=== PATIENT | female | born 1990 | race Caucasian/White ===

== ENCOUNTER 2020-08-06 16:20 | Emergency (ER) | payer BC, SELFPAY ==
[2020-08-06] VITALS (26 sets, daily range): BP systolic 108–155; BP diastolic 39–86; PULSE 103–125; RESP 16–22; TEMP 36.4; O2SAT 94–97; BMI 22.5
--- NOTE | 2020-08-06 16:42 | CT_ITS ---
EXAMINATION: CT HEAD WITHOUT CONTRAST CLINICAL INFORMATION: Altered mental status COMPARISON: None TECHNIQUE: Contiguous axial imaging was performed from the skull base to vertex without intravenous administration of contrast. This CT examination was performed using dose optimization techniques as appropriate, variously including the following: *Automated exposure control *Adjustment of mA and/or kV according to patient size (this includes techniques or standardized protocols for targeted exams where dose is matched to indication/reason for exam; i.e. extremities or head) *Use of iterative reconstruction technique DLP: 617 mGy-cm FINDINGS: There is no evidence of acute intracranial hemorrhage or territorial infarction. No abnormal mass effect or midline shift is seen. Obrien to white matter differentiation is well preserved. No extra-axial fluid collections are identified. The ventricles are normal in size. There is no abnormal attenuation within the brain parenchyma. The osseous structures and soft tissues are normal. Near-complete opacification of the left frontal sinus with several opacified ethmoidal air cells. There is minimal sinus disease of the sphenoid sinus. The mastoid air cells are well aerated. CT/CT head/brain wo con IMPRESSION: 1. No acute intracranial pathology. 2. Moderate sinus disease.
--- NOTE | 2020-08-06 16:43 | ED_ITS ---
HPI - Psych General Chief Complaint: Psychiatric Symptoms <Santy Abdul NP - Last Filed: 08/06/20 21:01> Stated Complaint: crisis <Santy Abdul NP - Last Filed: 08/06/20 21:01> Time Seen by Provider: 08/06/20 16:39 <Santy Abdul NP - Last Filed: 08/06/20 21:01> Source: EMS <Santy Abdul NP - Last Filed: 08/06/20 21:01> Mode of arrival: EMS <Santy Abdul NP - Last Filed: 08/06/20 21:01> Limitations: altered mental status <Santy Abdul NP - Last Filed: 08/06/20 21:01> History of Present Illness HPI Narrative: 29-year-old female according to her EMR history of appendectomy in 2013 otherwise no significant past medical history presenting via EMS from home where family called as patient has been acting ?erratic? for the past couple days and today not making any sense. For family no prior psychiatric history which was reported to the EMS. Patient upon arrival erratically bizarre behavior states she is getting ?tele path think waves? and ?data? out of people to slow down and reversed time. <Santy Abdul NP - Last Filed: 08/06/20 21:01> MD complaint: altered mental status <Santy Abdul NP - Last Filed: 08/06/20 21:01> Treatments prior to arrival: none <Santy Abdul NP - Last Filed: 08/06/20 21:01> Related Data Home Medications: Home Medications Medication Instructions Recorded Confirmed No Known Home Meds 08/07/20 08/07/20 <Santy Adbul NP - Last Filed: 08/06/20 21:01> Allergies/Adverse Reactions: Allergies Allergy/AdvReac Type Severity Reaction Status Date / Time No Known Allergies Allergy Unverified 04/02/20 17:31 <Santy Abdul NP - Last Filed: 08/06/20 21:01> Review of Systems Review of Systems: Agitated and bizarre behavior <Santy Abdul NP - Last Filed: 08/06/20 21:01> Yes Unobtainable due to mental status <Santy Abdul NP - Last Filed: 08/06/20 21:01> [facility] Past Medical History Surgical History: Surgical History (Updated 08/06/20 @ 20:44 by Santy Abdul NP) History of appendectomy <Santy Abdul NP - Last Filed: 08/06/20 21:01> Social History Social History: Social History Alcohol intake: unknown Smoking Status: Unknown if ever smoked Use of substances other than those prescribed or required for medical reasons: Unknown Advance Directives: No Advance Directives Information Provided: No <Santy Abdul NP - Last Filed: 08/06/20 21:01> Physical Exam Vital Signs: Vital Signs: Last Vital Signs Temp 97.5 F 08/06/20 22:26 Pulse 88 08/07/20 02:00 Resp 08/07/20 02:00 BP 137/67 08/07/20 00:30 Pulse Ox 98 08/07/20 02:00 Body Mass Index 22.5 Reviewed <Santy Abdul NP - Last Filed: 08/06/20 21:01> Vital Signs: Last Vital Signs Temp 97.5 F 08/06/20 22:26 Pulse 88 08/07/20 02:00 Resp 16 08/07/20 02:00 BP 137/67 08/07/20 00:30 Pulse Ox 98 08/07/20 02:00 Body Mass Index 22.5 <Chaparrita Mckeon NP - Last Filed: 08/07/20 00:47> Vital Signs: Last Vital Signs Temp 97.5 F 08/06/20 22:26 Pulse 88 08/07/20 02:00 Resp 08/07/20 02:00 BP 137/67 08/07/20 00:30 Pulse Ox 98 08/07/20 02:00 Body Mass Index 22.5 <Iqra Lemon MD - Last Filed: 08/07/20 05:20> Const: General: No acute distress <Santy Abdul NP - Last Filed: 08/06/20 21:01> Nutritional Appearance: average body habitus <Santy Abdul NP - Last Filed: 08/06/20 21:01> Orientation/consciousness: patient oriented x3 <Santy Abdul NP - Last Filed: 08/06/20 21:01> HENMT: Head: Yes normal to inspection <Santy Abdul NP - Last Filed: 08/06/20 21:01> Ears: hearing grossly normal bilaterally <[facility] Chantell DRY WALL PLASTERER - Last Filed: 08/06/20 21:01> Eyes: General: appearance normal, both eyes and all related structures <Santymiguel a Abdul DRY WALL PLASTERER - Last Filed: 08/06/20 21:01> Visual Syed: normal visual syed by confrontation <Santy Chantell DRY WALL PLASTERER - Last Filed: 08/06/20 21:01> Neck: Neck: Yes normal visual inspection, No positive Brudzinski's sign, No po sitive Kernig's sign and No tender <[facility] Chantell DRY WALL PLASTERER - Last Filed: 08/06/20 21:01> Thyroid: Thyroid normal <[facility] Chantell DRY WALL PLASTERER - Last Filed: 08/06/20 21:01> Chest: Chest palpation & inspection: normal inspection of the chest <[facility] Chantell DRY WALL PLASTERER - Last Filed: 08/06/20 21:01> Resp: Effort & Inspection: normal respiratory effort <Santymiguel a Abdul DRY WALL PLASTERER - Last Filed: 08/06/20 21:01> Auscultation: clear to auscultation bilaterally <Sanyt Chantell DRY WALL PLASTERER - Last Filed: 08/06/20 21:01> Cardio: Jugular venous distension: no JVD <Santy Chantell DRY WALL PLASTERER - Last Filed: 08/06/20 21:01> GI: Inspection: Yes normal to inspection <[facility] Chantell DRY WALL PLASTERER - Last Filed: 08/06/20 21:01> Percussion: Yes normal to percussion <[facility] Chantell DRY WALL PLASTERER - Last Filed: 08/06/20 21:01> Auscultation: normal bowel sounds <[facility] CARY Abdul - Last Filed: 08/06/20 21:01> : General: Yes no CVA tenderness <[facility] CARY Abdul - Last Filed: 08/06/20 21:01> Back/Spine/Pelvis: Back: no CVA tenderness <[facility] CARY Abdul - Last Filed: 08/06/20 21:01> Skin: General skin exam: no rashes or lesions noted <[facility] CARY Abdul - Last Filed: 08/06/20 21:01> Neuro: General: patient oriented x3 <Santy Abdul NP - Last Filed: 08/06/20 21:01> Extrem: General: Yes normal to inspection <Santy Abdul NP - Last Filed: 08/06/20 21:01> Psych: Affect: Hostile affect present <Santy Abdul NP - Last Filed: 08/06/20 21:> Attitude: Refuses to answer (attititude/behavior) <Santy Abdul NP - Last Filed: 08/06/20 21:01> Thought process: Word salad present (speech) <Santy Abdul NP - Last Filed: 08/06/20 21:> Insight: Poor insight present (Psych) <Santy Abdul NP - Last Filed: 08/06/20 21:> Course Course Course Narrative: <Santy Abdul NP - Last Filed: 08/06/20 21:> Around 05:10, patient got out of bed, open the sliding door from her room, run across the ED, run towards the behavioral health pod door and slammed into it with full speed. Patient did not hit her head, did not lose consciousness, patient is screaming, trying to kick staff. Security had to be called and was taken back to her room. Again, patient had to be physically and chemically restrained, patient received 50 of Benadryl IM, 2 of Ativan IM, 5 mg of Haldol. <Iqra Lemon MD - Last Filed: 08/07/20 05:20> Reevaluation(s) Reevaluation #1: No prior history available contacted the [phone] number no answer. Patient acting very erratic appears to be responding to internal stimuli, delusional talked about pulling date out to slow time and reversed time. No prior history of this. Case discussed with care team to see if they have any records with her or the crisis team. <Santy Abdul NP - Last Filed: 08/06/20 21:01> Reevaluation #2: Care team was able to contact the patient's mother at the phone [phone]. She reports patient had COVID a month ago she was and quarantine she recently got a new job at the [employer] was doing well over the past 4 days she has not slept becoming increasingly agitated and today seemed off where she was delusional and responding to internal stimuli. Per family they doubt drug use, positive occasional marijuana use. Patient becoming aggressive and attempting to load having exit seeking behavior, unable to redirect does regarding chemical restraint for safety and 4 point restraint as well. Given the relation of symptoms likely sleep deprivation associated psychosis versus new onset. Family very insistent that he would doubt drug use. There has not been a fever or any other symptoms. <Santy Abdul NP - Last Filed: 08/06/20 21:> Reevaluation #3: COVID test positive given that she has no other symptoms she is likely testing positive from the prior infection. <Santy Abdul NP - Last Filed: 08/06/20 21:> Additional Reevaluation(s): 2109 There was the lab delay in the hCG quant which is still running. Patient is much more calmer now able to sleep. She is still waiting head CT now that she is much calmer she can go for this and will need care team evaluation for the new onset psychosis type symptoms. Case signed out to night team pending urine, hCG head CT and care team evaluat ion. <Santy Abdul NP - Last Filed: 08/06/20 21:> Consultations Consultation #1: Care team - <Santy Abdul NP - Last Filed: 08/06/20 21:> MDM - Psych Restraints Face to Face Assessment: Face to Face Assessment: Current Situation: After assessment of the patient, a review of the pertinent medical record and a discussion with nursing staff, I feel the patient requires a restrain intervention. Reaction To: [] Medical Condition: [] Behavioral State: [] Continued Need: [] <Santy Abdul NP - Last Filed: 08/06/20 21:> Lab Data Result diagrams: : 08/06/20 19:52 08/06/20 19:52 <Santy Abdul NP - Last Filed: 08/06/20 21:> Labs: Lab Results 08/06/20 08/06/20 08/06/20 Range/Units 17:06 19:52 19:52 WBC 13.2 H (4.8-10.8) X10*3/uL RBC 4.61 (4.20-5.50) X10*6/uL Hgb 14.1 (12.0-16.0) g/dl Hct 41.4 (37-47) % MCV 89.8 (80-98) fL MCH 30.6 (27.0-33.0) pg MCHC 34.1 (31.0-35.0) g/dl RDW 11.6 (11.0-16.0) % Plt Count 336 (160-400) X10*3/uL MPV 9.8 (9.4-12.3) fL Immature Gran % (Auto) 0.3 (0.0-0.4) % Neut % (Auto) 87.6 H (45-73) % Lymph % (Auto) 8.9 L (20-40) % Arroyo % (Auto) 3.0 (2-11) % Eos % (Auto) 0.0 (0-4) % Baso % (Auto) 0.2 (0-2) % Lymph # (Auto) 1.2 (1.2-4.9) X10*3/uL Arroyo # (Auto) 0.4 (0.1-1.2) X10*3/uL Eos # (Auto) 0.0 (0.0-0.4) X10*3/uL Baso # (Auto) 0.0 (0.0-0.2) X10*3/uL Abs Immat Gran (auto) 0.04 H (0.00-0.03) X10*3/uL Absolute Neuts (auto) 11.6 H (2.0-8.3) X10*3/uL Absolute Nucleated RBC 0.000 (0.0-0.012) X10*3/uL Nucleated RBC % (auto) 0.0 (0.0-0.2) /100WBC Sodium 140 (135-145) mmol/L Potassium 3.5 (3.3-5.1) mmol/l Chloride 103 (96-108) mmol/L Carbon Dioxide 22 (22-29) mmol/L Anion Gap 19 (12-20) BUN 18 H (9-16) mg/dL Creatinine 0.75 (0.5-1.4) mg/dL Estim Creat Clear Calc 100.5 Estimated GFR > 60 Random Glucose 127 H (60-115) mg/dL Calcium 9.5 (8.4-10.2) mg/dL Total Bilirubin 0.7 (0.0-1.0) mg/dL AST 35 H (5-31) U/L ALT 20 (0-31) U/L Alkaline Phosphatase 71 (39-117) U/L Total Protein 7.7 (6.5-8.0) g/dL Albumin 5.0 (3.5-5.0) g/dL Beta HCG, Quant < 2 mIU/mL Ethyl Alcohol mg/dL COVID-19 (JASWINDER) Positive A (Negative) COVID-19 Clin Com See Note 08/06/20 Range/Units 19:52 WBC (4.8-10.8) X10*3/uL RBC (4.20-5.50) X10*6/uL Hgb (12.0-16.0) g/dl Hct (37-47) % MCV (80-98) fL MCH (27.0-33.0) pg MCHC (31.0-35.0) g/dl RDW (11.0-16.0) % Plt Count (160-400) X10*3/uL MPV (9.4-12.3) fL Immature Gran % (Auto) (0.0-0.4) % Neut % (Auto) (45-73) % Lymph % (Auto) (20-40) % Arroyo % (Auto) (2-11) % Eos % (Auto) (0-4) % Baso % (Auto) (0-2) % Lymph # (Auto) (1.2-4.9) X10*3/uL Arroyo # (Auto) (0.1-1.2) X10*3/uL Eos # (Auto) (0.0-0.4) X10*3/uL Baso # (Auto) (0.0-0.2) X10*3/uL Abs Immat Gran (auto) (0.00-0.03) X10*3/uL Absolute Neuts (auto) (2.0-8.3) X10*3/uL Absolute Nucleated RBC (0.0-0.012) X10*3/uL Nucleated RBC % (auto) (0.0-0.2) /100WBC Sodium (135-145) mmol/L Potassium (3.3-5.1) mmol/l Chloride (96-108) mmol/L Carbon Dioxide (22-29) mmol/L Anion Gap (12-20) BUN (9-16) mg/dL Creatinine (0.5-1.4) mg/dL Estim Creat Clear Calc Estimated GFR Random Glucose (60-115) mg/dL Calcium (8.4-10.2) mg/dL Total Bilirubin (0.0-1.0) mg/dL AST (5-31) U/L ALT (0-31) U/L Alkaline Phosphatase (39-117) U/L Total Protein (6.5-8.0) g/dL Albumin (3.5-5.0) g/dL Beta HCG, Quant mIU/mL Ethyl Alcohol < 10 mg/dL COVID-19 (JASWINDER) (Negative) COVID-19 Clin Com <Santy Abdul NP - Last Filed: 08/06/20 21:01> Lab Results 08/06/20 08/06/20 08/06/20 Range/Units 17:06 19:52 19:52 WBC 13.2 H (4.8-10.8) X10*3/uL RBC 4.61 (4.20-5.50) X10*6/uL Hgb 14.1 (12.0-16.0) g/dl Hct 41.4 (37-47) % MCV 89.8 (80-98) fL MCH 30.6 (27.0-33.0) pg MCHC 34.1 (31.0-35.0) g/dl RDW 11.6 (11.0-16.0) % Plt Count 336 (160-400) X10*3/uL MPV 9.8 (9.4-12.3) fL Immature Gran % (Auto) 0.3 (0.0-0.4) % Neut % (Auto) 87.6 H (45-73) % Lymph % (Auto) 8.9 L (20-40) % Arroyo % (Auto) 3.0 (2-11) % Eos % (Auto) 0.0 (0-4) % Baso % (Auto) 0.2 (0-2) % Lymph # (Auto) 1.2 (1.2-4.9) X10*3/uL Arroyo # (Auto) 0.4 (0.1-1.2) X10*3/uL Eos # (Auto) 0.0 (0.0-0.4) X10*3/uL Baso # (Auto) 0.0 (0.0-0.2) X10*3/uL Abs Immat Gran (auto) 0.04 H (0.00-0.03) X10*3/uL Absolute Neuts (auto) 11.6 H (2.0-8.3) X10*3/uL Absolute Nucleated RBC 0.000 (0.0-0.012) X10*3/uL Nucleated RBC % (auto) 0.0 (0.0-0.2) /100WBC Sodium 140 (135-145) mmol/L Potassium 3.5 (3.3-5.1) mmol/l Chloride 103 (96-108) mmol/L Carbon Dioxide 22 (22-29) mmol/L Anion Gap 19 (12-20) BUN 18 H (9-16) mg/dL Creatinine 0.75 (0.5-1.4) mg/dL Estim Creat Clear Calc 100.5 Estimated GFR > 60 Random Glucose 127 H (60-115) mg/dL Calcium 9.5 (8.4-10.2) mg/dL Total Bilirubin 0.7 (0.0-1.0) mg/dL AST 35 H (5-31) U/L ALT 20 (0-31) U/L Alkaline Phosphatase 71 (39-117) U/L Total Protein 7.7 (6.5-8.0) g/dL Albumin 5.0 (3.5-5.0) g/dL Beta HCG, Quant < 2 mIU/mL Ethyl Alcohol mg/dL COVID-19 (JASWINDER) Positive A (Negative) COVID-19 Clin Com See Note 08/06/20 Range/Units 19:52 WBC (4.8-10.8) X10*3/uL RBC (4.20-5.50) X10*6/uL Hgb (12.0-16.0) g/dl Hct (37-47) % MCV (80-98) fL MCH (27.0-33.0) pg MCHC (31.0-35.0) g/dl RDW (11.0-16.0) % Plt Count (160-400) X10*3/uL MPV (9.4-12.3) fL Immature Gran % (Auto) (0.0-0.4) % Neut % (Auto) (45-73) % Lymph % (Auto) (20-40) % Arroyo % (Auto) (2-11) % Eos % (Auto) (0-4) % Baso % (Auto) (0-2) % Lymph # (Auto) (1.2-4.9) X10*3/uL Arroyo # (Auto) (0.1-1.2) X10*3/uL Eos # (Auto) (0.0-0.4) X10*3/uL Baso # (Auto) (0.0-0.2) X10*3/uL Abs Immat Gran (auto) (0.00-0.03) X10*3/uL Absolute Neuts (auto) (2.0-8.3) X10*3/uL Absolute Nucleated RBC (0.0-0.012) X10*3/uL Nucleated RBC % (auto) (0.0-0.2) /100WBC Sodium (135-145) mmol/L Potassium (3.3-5.1) mmol/l Chloride (96-108) mmol/L Carbon Dioxide (22-29) mmol/L Anion Gap (12-20) BUN (9-16) mg/dL Creatinine (0.5-1.4) mg/dL Estim Creat Clear Calc Estimated GFR Random Glucose (60-115) mg/dL Calcium (8.4-10.2) mg/dL Total Bilirubin (0.0-1.0) mg/dL AST (5-31) U/L ALT (0-31) U/L Alkaline Phosphatase (39-117) U/L Total Protein (6.5-8.0) g/dL Albumin (3.5-5.0) g/dL Beta HCG, Quant mIU/mL Ethyl Alcohol < 10 mg/dL COVID-19 (JASWINDER) (Negative) COVID-19 Clin Com <Chaparrita Mckeon NP - Last Filed: 08/07/20 00:47> Lab Results 08/06/20 08/06/20 08/06/20 Range/Units 17:06 19:52 19:52 WBC 13.2 H (4.8-10.8) X10*3/uL RBC 4.61 (4.20-5.50) X10*6/uL Hgb 14.1 (12.0-16.0) g/dl Hct 41.4 (37-47) % MCV 89.8 (80-98) fL MCH 30.6 (27.0-33.0) pg MCHC 34.1 (31.0-35.0) g/dl RDW 11.6 (11.0-16.0) % Plt Count 336 (160-400) X10*3/uL MPV 9.8 (9.4-12.3) fL Immature Gran % (Auto) 0.3 (0.0-0.4) % Neut % (Auto) 87.6 H (45-73) % Lymph % (Auto) 8.9 L (20-40) % Arroyo % (Auto) 3.0 (2-11) % Eos % (Auto) 0.0 (0-4) % Baso % (Auto) 0.2 (0-2) % Lymph # (Auto) 1.2 (1.2-4.9) X10*3/uL Arroyo # (Auto) 0.4 (0.1-1.2) X10*3/uL Eos # (Auto) 0.0 (0.0-0.4) X10*3/uL Baso # (Auto) 0.0 (0.0-0.2) X10*3/uL Abs Immat Gran (auto) 0.04 H (0.00-0.03) X10*3/uL Absolute Neuts (auto) 11.6 H (2.0-8.3) X10*3/uL Absolute Nucleated RBC 0.000 (0.0-0.012) X10*3/uL Nucleated RBC % (auto) 0.0 (0.0-0.2) /100WBC Sodium 140 (135-145) mmol/L Potassium 3.5 (3.3-5.1) mmol/l Chloride 103 (96-108) mmol/L Carbon Dioxide 22 (22-29) mmol/L Anion Gap 19 (12-20) BUN 18 H (9-16) mg/dL Creatinine 0.75 (0.5-1.4) mg/dL Estim Creat Clear Calc 100.5 Estimated GFR > 60 Random Glucose 127 H (60-115) mg/dL Calcium 9.5 (8.4-10.2) mg/dL Total Bilirubin 0.7 (0.0-1.0) mg/dL AST 35 H (5-31) U/L ALT 20 (0-31) U/L Alkaline Phosphatase 71 (39-117) U/L Total Protein 7.7 (6.5-8.0) g/dL Albumin 5.0 (3.5-5.0) g/dL Beta HCG, Quant < 2 mIU/mL Ethyl Alcohol mg/dL COVID-19 (JASWINDER) Positive A (Negative) COVID-19 Clin Com See Note 08/06/20 Range/Units 19:52 WBC (4.8-10.8) X10*3/uL RBC (4.20-5.50) X10*6/uL Hgb (12.0-16.0) g/dl Hct (37-47) % MCV (80-98) fL MCH (27.0-33.0) pg MCHC (31.0-35.0) g/dl RDW (11.0-16.0) % Plt Count (160-400) X10*3/uL MPV (9.4-12.3) fL Immature Gran % (Auto) (0.0-0.4) % Neut % (Auto) (45-73) % Lymph % (Auto) (20-40) % Arroyo % (Auto) (2-11) % Eos % (Auto) (0-4) % Baso % (Auto) (0-2) % Lymph # (Auto) (1.2-4.9) X10*3/uL Arroyo # (Auto) (0.1-1.2) X10*3/uL Eos # (Auto) (0.0-0.4) X10*3/uL Baso # (Auto) (0.0-0.2) X10*3/uL Abs Immat Gran (auto) (0.00-0.03) X10*3/uL Absolute Neuts (auto) (2.0-8.3) X10*3/uL Absolute Nucleated RBC (0.0-0.012) X10*3/uL Nucleated RBC % (auto) (0.0-0.2) /100WBC Sodium (135-145) mmol/L Potassium (3.3-5.1) mmol/l Chloride (96-108) mmol/L Carbon Dioxide (22-29) mmol/L Anion Gap (12-20) BUN (9-16) mg/dL Creatinine (0.5-1.4) mg/dL Estim Creat Clear Calc Estimated GFR Random Glucose (60-115) mg/dL Calcium (8.4-10.2) mg/dL Total Bilirubin (0.0-1.0) mg/dL AST (5-31) U/L ALT (0-31) U/L Alkaline Phosphatase (39-117) U/L Total Protein (6.5-8.0) g/dL Albumin (3.5-5.0) g/dL Beta HCG, Quant mIU/mL Ethyl Alcohol < 10 mg/dL COVID-19 (JASWINDER) (Negative) COVID-19 Clin Com <Iqra Lemon MD - Last Filed: 08/07/20 05:20> Discharge Plan Discharge Clinical Impression: Problems related to lack of adequate sleep, Psychosis <Santy Abdul NP - Last Filed: 08/06/20 21:01> Prescriptions: No Action No Known Home Meds RF: 0 <Santy Abdul NP - Last Filed: 08/06/20 21:01>
[2020-08-06] MEDS: Haloperidol Lactate 5 MG/ML VIAL IM (16:45)
[2020-08-06] MEDS: LORazepam 2 MG/ML VIAL IM (16:45)
[2020-08-06 17:32] LABS: COVID-19 Test Positive (Negative)
[2020-08-06 19:56] LABS: MANUAL DIFF FLAG NO
[2020-08-06 19:58] LABS: Basophils Percent Auto 0.2 % (0-2); Hematocrit 41.4 % (37-47); Hemoglobin 14.1 g/dl (12.0-16.0); Imm Gran Abs Auto 0.04 X10*3/uL (0.00-0.03); Imm Gran Pct Auto 0.3 % (0.0-0.4); Lymphocytes Absolute Auto 1.2 X10*3/uL (1.2-4.9); Lymphocytes Percent Auto 8.9 % (20-40); Mean Corpuscular HGB Conc 34.1 g/dl (31.0-35.0); Mean Corpuscular Hemoglobin 30.6 pg (27.0-33.0); Mean Corpuscular Volume 89.8 fL (80-98); Mean Platelet Volume 9.8 fL (9.4-12.3); Monocytes Absolute Auto 0.4 X10*3/uL (0.1-1.2); Neutrophils Absolute Auto 11.6 X10*3/uL (2.0-8.3); Neutrophils Percent Auto 87.6 % (45-73); Platelet Count 336 X10*3/uL (160-400); Red Blood Count 4.61 X10*6/uL (4.20-5.50); Red Cell Distribution Width 11.6 % (11.0-16.0); White Blood Count 13.2 X10*3/uL (4.8-10.8)
[2020-08-06] MEDS: diphenhydrAMINE HCL 50 MG/ML VIAL 25 MG IM (20:08)
[2020-08-06 20:24] LABS: Ethanol < 10 mg/dL
[2020-08-06 20:27] LABS: Alanine Aminotransferase 20 U/L (0-31); Alkaline Phosphatase 71 U/L (39-117); Anion Gap 19 (12-20); Aspartate Amino Transferase 35 U/L (5-31); Bilirubin Total 0.7 mg/dL (0.0-1.0); Blood Urea Nitrogen 18 mg/dL (9-16); Calcium 9.5 mg/dL (8.4-10.2); Carbon Dioxide 22 mmol/L (22-29); Chloride 103 mmol/L (96-108); Creatinine Clr Calc Pharmacy 100.5; Estimated Glomerular Filt Rate > 60; Glucose Random 127 mg/dL (60-115); Potassium 3.5 mmol/l (3.3-5.1); Sodium 140 mmol/L (135-145); Total Protein 7.7 g/dL (6.5-8.0)
[2020-08-06 20:59] LABS: HCG Quantitative < 2 mIU/mL
--- NOTE | 2020-08-06 22:07 | ECG_ITS ---
Test Reason : PHYSIC Blood Pressure : / mmHG Vent. Rate : 112 BPM Atrial Rate : 112 BPM P-R Int : 130 ms QRS Dur : 082 ms QT Int : 346 ms P-R-T Axes : 078 060 -40 degrees QTc Int : 472 ms Poor data quality Sinus tachycardia Nonspecific T wave abnormality Abnormal ECG No previous ECGs available Referred By: Chaparrita Mckeon Electronically Signed By:LIZETT JUNIOR
--- NOTE | 2020-08-06 22:12 | PC.NURSE ---
PT RELEASED FROM 4PT RESTRAINTS AT APPROX 2049, SINCE THIS TIME PT HAS HAD A DIFFICULT TIME WITH REDIRECTION; CHARGING TOWARD STAFF, ATTEMPTING TO RUN AWAY FROM STAFF, NOT ABLE TO MAINTAIN HER OWN SAFETY AT THIS TIME. SPOKE W/ BULLET CASTING OPERATOR WILL PERFORM EKG & MEDICATE PER EMAR
[2020-08-06] MEDS: Ziprasidone Mesylate 20 MG VIAL IM (22:46)
--- NOTE | 2020-08-06 23:45 | PC.NURSE ---
Pt continues to babble non-sensically in her room. Plan to trial release restraints.
[2020-08-07] VITALS (28 sets, daily range): BP systolic 103–143; BP diastolic 30–77; PULSE 72–118; RESP 14–20; TEMP 36.9–37.6; O2SAT 94–100
[2020-08-07] MEDS: diphenhydrAMINE HCL 50 MG/ML VIAL IM (05:08)
[2020-08-07] MEDS: LORazepam 2 MG/ML VIAL IM (05:25)
[2020-08-07] MEDS: Haloperidol Lactate 5 MG/ML VIAL IM (05:26)
--- NOTE | 2020-08-07 09:00 | PC.NURSE ---
Spoke with Aysha AGUILAR, aware both legs removed out of restraints however pt continues to be impulsive, eating blanket, eating bandaid off arm, needs frequent redirection. Word joanne continues speaking of squirrels and not making sense but able to recite name and where she is. Will continue restraint order for safety.
--- NOTE | 2020-08-07 09:09 | MHC.CARE ---
Case consult pending with psychiatry for patient .
--- NOTE | 2020-08-07 09:46 | XR_ITS ---
EXAMINATION: XR CHEST CLINICAL INFORMATION: Acute mental status change COMPARISON: None TECHNIQUE: Frontal view of the chest was obtained. FINDINGS: The cardiac silhouette does not appear enlarged. Hilar and mediastinal contours are unremarkable. The lungs are clear. There is no pleural effusion or pneumothorax. Bony structures are normal. IMPRESSION Unremarkable examination.
--- NOTE | 2020-08-07 10:01 | PC.NURSE ---
Marita Herron to bedside for evaluation, new orders obtained
--- NOTE | 2020-08-07 10:53 | PC.NURSE ---
This RN to room with tech, labs drawn, PO Zyprexa given and accepted without incident. Placed on bedpan to void without success and bladder scan showed 124ml. Aysha AGUILAR aware. Pt straight cathed for urine specimen needed. Pt taken out of velcro restraints, pt remains disoriented, delusional and word salad continues however pt able to follow simple commands and more cooperative with care. Pt requesting and given water occasionally and tolerates well. Eyes closed at this time. 1:1 pt observer remains for safety.
[2020-08-07] MEDS: OLANZapine 2.5 MG TABLET PO (11:01)
[2020-08-07 11:30] LABS: Glucose Urine UA NEG (NEG); Leukocyte Esterase Urine NEG (NEG); Nitrite Urine NEG (NEG); Specific Gravity - Urine >= 1.030 (1.005-1.025); Urine Blood 1+ (NEG); Urine Ketones 40 MG/DL (NEG); Urine Protein 1+ MG/DL (NEG-TRACE)
[2020-08-07 11:31] LABS: Appearance Urine CLOUDY; Color Urine YELLOW
[2020-08-07 11:33] LABS: UPreg QC Valid YES; Urine Pregnancy NEGATIVE (NEGATIVE)
[2020-08-07 11:38] LABS: Ammonia 41 umol/L (13-55)
[2020-08-07 11:42] LABS: Bacteria Urine 4+ /LPF; Squamous Epithelial Cell Urine 4+ /LPF
[2020-08-07 11:45] LABS: C Reactive Protein 0.04 mg/dL (< or = 0.50); Lactate Dehydrogenase 212 U/L (122-220)
[2020-08-07 11:59] LABS: Amphetamine Screen Urine POSITIVE (Not Detect); Barbiturates, Urine Not Detected (Not Detect); Benzodiazepines Screen Urine Not Detected (Not Detect); Cannabinoid Screen Urine POSITIVE (Not Detect); Cocaine Screen Urine Not Detected (Not Detect); Opiate Screen Urine Not Detected (Not Detect); Phencyclidine Screen Urine Not Detected (Not Detect)
[2020-08-07 12:08] LABS: Ferritin 127 ng/mL (10-122)
[2020-08-07 12:20] LABS: Procalcitonin < 0.02 ng/mL
--- NOTE | 2020-08-07 13:56 | PC.NURSE ---
Pt more alert, answering appropriately at times and continues to follow simple commands. Ambulatory to bathroom with minimal assist and steady. Request grilled cheese for lunch but fell back asleep and asleep at this time. Pt observer remains for safety. Pt at times continues with confusion.
--- NOTE | 2020-08-07 14:19 | PC.NURSE ---
Spoke to mom Sue and updated on plan of care.
--- NOTE | 2020-08-07 14:54 | P.CNPS_ITS ---
History of Present Illness Date of Service: 08/07/2020 Chief Complaint: crisis Reason for Consult: psychotic Requesting physician: Dank Hummel Discussed with referring provider: Yes Sources of Information: patient interviewed, chart reviewed and crisis/core team assessment reviewed HPI Narrative: Patient is a 29 year old female who presented to [facility] via ambulance after family called reporting increasingly bizarre, paranoid and disorganized behaviors. Once in ED patient exhibiting erratic behaviors, not responding to redirection, aggressive, hallucinating. Required physical and chemical restraints due to significant safety risk and behaviors, please see ED provider and nursing documentation for reference. When seen by this singer songwriter, patient awake, oriented to self only. Speech was clear, but completely illogical--word salad. +VH reporting people standing behind her. Case discussed with ED provider, additional lab work ordered including UDS which showed +amphetamines. TAPING MACHINE OPERATOR checked and patient has no history (within last 2 years at least) of amphetamine prescriptions. CARE team evaluation reviewed and collateral from family is that patient has no known BH history and no known susbtance use history. BF reports that patient occasionally smokes marijuana. Review of Systems Review of Systems Yes Unobtainable due to mental status PMFSH Surgical History (Updated 08/06/20 @ 20:44 by Santy Abdul NP) History of appendectomy Diagnostics Vital Signs (24Hr): Vital Signs - 24 hr 08/06/20 16:28 08/06/20 16:47 08/06/20 17:00 Temperature Pulse Rate 109 H Respiratory Rate 20 20 Blood Pressure 126/86 Pulse Oximetry 97 08/06/20 17:15 08/06/20 17:20 08/06/20 17:30 Temperature Pulse Rate 111 H Respiratory Rate 20 20 Blood Pressure 120/39 L 108/67 Pulse Oximetry 96 08/06/20 17:35 08/06/20 17:45 08/06/20 17:51 Temperature Pulse Rate 104 H Respiratory Rate 18 18 22 H Blood Pressure 108/60 Pulse Oximetry 97 08/06/20 18:05 08/06/20 18:27 08/06/20 18:47 Temperature Pulse Rate 104 H 107 H 121 H Respiratory Rate 22 H 16 18 Blood Pressure 130/69 127/70 126/77 Pulse Oximetry 97 97 08/06/20 19:03 08/06/20 19:16 08/06/20 19:35 Temperature Pulse Rate 120 H 109 H 112 H Respiratory Rate 16 18 20 Blood Pressure 119/68 124/74 122/81 Pulse Oximetry 96 97 95 08/06/20 19:50 08/06/20 20:05 08/06/20 20:20 Temperature Pulse Rate 115 H 116 H 107 H Respiratory Rate 20 20 20 Blood Pressure 125/55 L 136/63 126/73 Pulse Oximetry 97 97 97 08/06/20 20:35 08/06/20 22:00 08/06/20 22:26 Temperature 97.5 F Pulse Rate 110 H 103 H Respiratory Rate 20 20 18 Blood Pressure 137/72 139/69 Pulse Oximetry 96 97 08/06/20 22:45 08/06/20 22:52 08/06/20 23:00 Temperature Pulse Rate 125 H 125 H Respiratory Rate 20 18 18 Blood Pressure 155/72 H 155/72 H 132/65 Pulse Oximetry 97 94 94 08/06/20 23:15 08/06/20 23:30 08/07/20 00:30 Temperature Pulse Rate Respiratory Rate 16 17 17 Blood Pressure 137/67 Pulse Oximetry 95 08/07/20 00:45 08/07/20 02:00 08/07/20 05:08 Temperature Pulse Rate 88 114 H Respiratory Rate 16 16 20 Blood Pressure 129/69 Pulse Oximetry 95 98 99 08/07/20 05:23 08/07/20 05:38 08/07/20 05:53 Temperature Pulse Rate 93 99 97 Respiratory Rate 16 16 18 Blood Pressure 116/62 115/72 118/77 Pulse Oximetry 97 97 97 08/07/20 06:08 08/07/20 07:08 08/07/20 07:23 Temperature Pulse Rate 94 117 H 101 H Respiratory Rate 16 16 18 Blood Pressure 128/68 132/72 Pulse Oximetry 97 95 96 08/07/20 07:38 08/07/20 07:53 08/07/20 08:08 Temperature Pulse Rate 97 114 H 117 H Respiratory Rate 18 16 18 Blood Pressure 125/68 114/69 132/63 Pulse Oximetry 95 96 95 08/07/20 08:23 08/07/20 08:38 08/07/20 08:53 Temperature Pulse Rate 118 H 109 H 109 H Respiratory Rate 18 18 14 Blood Pressure 137/64 117/64 122/68 Pulse Oximetry 98 94 96 08/07/20 09:08 08/07/20 09:23 08/07/20 09:38 Temperature 98.4 F Pulse Rate 111 H 111 H 105 H Respiratory Rate 16 18 16 Blood Pressure 127/66 125/63 143/63 H Pulse Oximetry 96 95 96 08/07/20 09:53 08/07/20 10:08 08/07/20 10:23 Temperature Pulse Rate 114 H 109 H 111 H Respiratory Rate 14 16 14 Blood Pressure 103/74 116/61 125/61 Pulse Oximetry 96 100 98 08/07/20 10:38 08/07/20 10:53 08/07/20 14:00 Temperature 99.7 F Pulse Rate 107 H 110 H 74 Respiratory Rate 14 14 16 Blood Pressure 121/70 118/67 109/70 Pulse Oximetry 96 96 97 Body Mass Index 22.5 Labs Results: 08/06/20 19:52 08/06/20 19:52 Labs: Laboratory Results - last 48 hr 08/06/20 08/06/20 08/06/20 17:06 19:52 19:52 WBC 13.2 H RBC 4.61 Hgb 14.1 Hct 41.4 MCV 89.8 MCH 30.6 MCHC 34.1 RDW 11.6 Plt Count 336 MPV 9.8 Immature Gran % (Auto) 0.3 Neut % (Auto) 87.6 H Lymph % (Auto) 8.9 L [place] % (Auto) 3.0 Eos % (Auto) 0.0 Baso % (Auto) 0.2 Lymph # (Auto) 1.2 [place] # (Auto) 0.4 Eos # (Auto) 0.0 Baso # (Auto) 0.0 Abs Immat Gran (auto) 0.04 H Absolute Neuts (auto) 11.6 H Absolute Nucleated RBC 0.000 Nucleated RBC % (auto) 0.0 Sodium 140 Potassium 3.5 Chloride 103 Carbon Dioxide 22 Anion Gap 19 BUN 18 H Creatinine 0.75 Estim Creat Clear Calc 100.5 Estimated GFR > 60 Random Glucose 127 H Calcium 9.5 Ferritin Total Bilirubin 0.7 AST 35 H ALT 20 Alkaline Phosphatase 71 Ammonia Lactate Dehydrogenase C-Reactive Protein Total Protein 7.7 Albumin 5.0 Procalcitonin Beta HCG, Quant < 2 Urine Color Urine Appearance Urine pH Ur Specific [place] Urine Protein Urine Glucose (UA) Urine Ketones Urine Blood Urine Nitrite Ur Leukocyte Esterase Urine RBC Urine WBC Ur Squamous Epith Cells Urine Bacteria Urine Test Urine Opiates Screen Ur Barbiturates Screen Ur Phencyclidine Scrn Ur Amphetamines Screen U Benzodiazepines Scrn Urine Cocaine Screen U Marijuana (THC) Screen Ethyl Alcohol COVID-19 (JASWINDER) Positive A COVID-19 Clin Com See Note 08/06/20 08/07/20 08/07/20 19:52 11:04 11:04 WBC RBC Hgb Hct MCV MCH MCHC RDW Plt Count MPV Immature Gran % (Auto) Neut % (Auto) Lymph % (Auto) [place] % (Auto) Eos % (Auto) Baso % (Auto) Lymph # (Auto) [place] # (Auto) Eos # (Auto) Baso # (Auto) Abs Immat Gran (auto) Absolute Neuts (auto) Absolute Nucleated RBC Nucleated RBC % (auto) Sodium Potassium Chloride Carbon Dioxide Anion Gap BUN Creatinine Estim Creat Clear Calc Estimated GFR Random Glucose Calcium Ferritin Total Bilirubin AST ALT Alkaline Phosphatase Ammonia 41 Lactate Dehydrogenase 212 C-Reactive Protein 0.04 Total Protein Albumin Procalcitonin Beta HCG, Quant Urine Color Urine Appearance Urine pH Ur Specific [place] Urine Protein Urine Glucose (UA) Urine Ketones Urine Blood Urine Nitrite Ur Leukocyte Esterase Urine RBC Urine WBC Ur Squamous Epith Cells Urine Bacteria Urine Test Urine Opiates Screen Ur Barbiturates Screen Ur Phencyclidine Scrn Ur Amphetamines Screen U Benzodiazepines Scrn Urine Cocaine Screen U Marijuana (THC) Screen Ethyl Alcohol < 10 COVID-19 (JASWINDER) COVID-19 Hopper Com 08/07/20 08/07/20 08/07/20 11:05 11:05 11:19 WBC RBC Hgb Hct MCV MCH MCHC RDW Plt Count MPV Immature Gran % (Auto) Neut % (Auto) Lymph % (Auto) [place] % (Auto) Eos % (Auto) Baso % (Auto) Lymph # (Auto) [place] # (Auto) Eos # (Auto) Baso # (Auto) Abs Immat Gran (auto) Absolute Neuts (auto) Absolute Nucleated RBC Nucleated RBC % (auto) Sodium Potassium Chloride Carbon Dioxide Anion Gap BUN Creatinine Estim Creat Clear Calc Estimated GFR Random Glucose Calcium Ferritin 127 H Total Bilirubin AST ALT Alkaline Phosphatase Ammonia Lactate Dehydrogenase C-Reactive Protein Total Protein Albumin Procalcitonin < 0.02 Beta HCG, Quant Urine Color YELLOW Urine Appearance CLOUDY Urine pH 6.0 Ur Specific [place] >= 1.030 H Urine Protein 1+ H Urine Glucose (UA) NEG Urine Ketones 40 Urine Blood 1+ H Urine Nitrite NEG Ur Leukocyte Esterase NEG Urine RBC 1-4 Urine WBC 10-14 H Ur Squamous Epith Cells 4+ Urine Bacteria 4+ Urine Test NEGATIVE Urine Opiates Screen Ur Barbiturates Screen Ur Phencyclidine Scrn Ur Amphetamines Screen U Benzodiazepines Scrn Urine Cocaine Screen U Marijuana (THC) Screen Ethyl Alcohol COVID-19 (JASWINDER) COVID-19 Hopper Com 08/07/20 11:19 WBC RBC Hgb Hct MCV MCH MCHC RDW Plt Count MPV Immature Gran % (Auto) Neut % (Auto) Lymph % (Auto) [place] % (Auto) Eos % (Auto) Baso % (Auto) Lymph # (Auto) [place] # (Auto) Eos # (Auto) Baso # (Auto) Abs Immat Gran (auto) Absolute Neuts (auto) Absolute Nucleated RBC Nucleated RBC % (auto) Sodium Potassium Chloride Carbon Dioxide Anion Gap BUN Creatinine Estim Creat Clear Calc Estimated GFR Random Glucose Calcium Ferritin Total Bilirubin AST ALT Alkaline Phosphatase Ammonia Lactate Dehydrogenase C-Reactive Protein Total Protein Albumin Procalcitonin Beta HCG, Quant Urine Color Urine Appearance Urine pH Ur Specific [place] Urine Protein Urine Glucose (UA) Urine Ketones Urine Blood Urine Nitrite Ur Leukocyte Esterase Urine RBC Urine WBC Ur Squamous Epith Cells Urine Bacteria Urine Test Urine Opiates Screen Not Detected Ur Barbiturates Screen Not Detected Ur Phencyclidine Scrn Not Detected Ur Amphetamines Screen POSITIVE H U Benzodiazepines Scrn Not Detected Urine Cocaine Screen Not Detected U Marijuana (THC) Screen POSITIVE H Ethyl Alcohol COVID-19 (JASWINDER) COVID-19 Clin Com Imaging Radiology Impressions: ITS Impressions Head CT 08/06/20 16:42 IMPRESSION: 1. No acute intracranial pathology. 2. Moderate sinus disease. Mental Status Exam Mental Status Exam Patient Appearance: Disheveled and Bizarre Patient Orientation: Person Level of Consciousness: Awake, Disoriented and Inappropriate Patient Behavior: Confused and Impulsive Mood Description: Labile Affect Description: Labile Patient Cognition Impaired: Yes Ability to Follow Directions: Poor (improving though) Speech Pattern: Rambling Perceptual Disturbances: Hallucinations Thought Process: Disoriented, Incoherent, Racing, Illogical, Word Salad and Confusion Judgement: Poor Medications Medications Current Medications Generic Name Dose Route Start Last Admin Trade Name Freq PRN Reason Stop Dose Admin Lorazepam 1 mg 08/07/20 12:20 Lorazepam 1 Mg Tablet PO RQ4H PRN anxiety/restlessness Olanzapine 2.5 mg 08/07/20 12:20 Olanzapine 2.5 Mg Tablet PO BID PRN Psychosis Allergies Allergies Allergy/AdvReac Type Severity Reaction Status Date / Time No Known Allergies Allergy Unverified 04/02/20 17:31 Assessment & Plan Assessment & Plan (1) Amphetamine intoxication delirium: Status: Acute Code(s): F15.921 - Other stimulant use, unspecified with intoxication delirium Recommendations: * Allow patient to sleep/maintain low stim environment * Keep hydrated * PRN Lorazepam for anxiety * PRN Zyprexa * Unclear if there is anything else contributing to current clinical picture. Last temp was slightly elevated and WBCs slightly elevated at time of admission as well * Consider checking TSH and RPR and rechecking CBC Greater than 50% of the session was spent on counseling and/or coordination of care
--- NOTE | 2020-08-07 15:23 | PC.NURSE ---
Ate grilled cheese provided. speaking to mother on phone at this time
--- NOTE | 2020-08-07 15:37 | MHC.CARE ---
CARE Team followed up with BODY TEAM MEMBER regarding plan of care. CARE Team to complete a mental status update on Pt, tomorrow 08/08/20 in the morning.
[2020-08-07 16:58] LABS: Glucose Urine UA NEG (NEG); Leukocyte Esterase Urine NEG (NEG); Nitrite Urine NEG (NEG); Specific Gravity - Urine >= 1.030 (1.005-1.025); Urine Blood TRACE (NEG); Urine Ketones >=80 MG/DL (NEG); Urine Protein TRACE MG/DL (NEG-TRACE)
[2020-08-07 17:00] LABS: Appearance Urine HAZY; Color Urine YELLOW
[2020-08-07 17:19] LABS: Amorphous Sediment Urine TRACE /LPF; Bacteria Urine TRACE /LPF; Mucus Urine TRACE /LPF; Squamous Epithelial Cell Urine TRACE /LPF; WBC Urine 0-2 /HPF (0-4)
--- NOTE | 2020-08-07 22:37 | PC.NURSE ---
PT HAS BEEN SLEEPING NOW FOR SEVERAL HRS AFTER BEING FED A SANDWICH, SERGIO HELENA & CHEESE STICK. PT AWARE OF WHERE SHE IS, ABLE TO SUSTAIN REASONABLE CONVERSATION, REQUESTING TO BE DISCHARGED HOME, CALM & COOPERATIVE. PT REPORTED SHE DID SNORT ADDERALL PRIOR TO THIS EPISODE, A SUBSTANCE SHE DOES NOT TYPICALLY CONSUME. SPOKE WITH CARE TEAM. PLAN FOR PT TO BE REASSESSED TOMORROW. PT AWARE OF PLAN TO STAY ANOTHER NIGHT AT LEAST. MOTHER COLLEEN UPDATED. SITTER REMAINS AT BEDSIDE.
--- NOTE | 2020-08-08 00:50 | MHC.CARE ---
Late entry: CARE Team checks in with GERARDO Lee regarding pt's progress at approx 1930 08/07/20. RN reports to CARE Team that there have been significant improvements in mental status, pt now redirectable and understandding the plan of care. Pt continues to express desire to d/c home. CARE Team discusses with CARY Sanchez. Plan for CARE Team to assess pt in the morning and provide further feedback about disposition at that time.
[2020-08-08 06:00] VITALS: BP 107/68; PULSE 15; RESP 82
--- NOTE | 2020-08-08 07:29 | PC.NURSE ---
pt sitting up eating breakfast. aox3 calm and cooperative. care team aware of re-eval.
--- NOTE | 2020-08-08 07:47 | PC.NURSE ---
care team at bedside
--- NOTE | 2020-08-08 08:05 | PC.NURSE ---
pt reports she has been covid pos. to return to work this coming . pt given clothes and phone to call mom for a ride home.
== END 2020-08-08 08:58 | disposition home or self-care (01) ==
PROVIDERS: Nurse Practitioner Primary Care; Physician Assistant; Emergency Provider Emergency Medicine
DX: F15.921 Other stimulant use, unspecified with intoxication delirium (principal); F28 Other psychotic disorder not due to a substance or known physiological condition; F12.90 Cannabis use, unspecified, uncomplicated; Z20.822 Contact with and (suspected) exposure to COVID-19; Z79.899 Other long term (current) drug therapy
CPT/HCPCS: 36415; 70450; 71045; 80053; 80307; 80320; 81001; 81003; 81025; 82140; 82728; 83615; 84145; 84702; 85025; 86140; 87086; 87635; 93005; 96372; 99283; 99285; J1200; J2060; J3486

== ENCOUNTER 2020-08-12 12:52 | Inpatient (IN) | payer BC, SELFPAY ==
[2020-08-12] VITALS (7 sets, daily range): BP systolic 130; BP diastolic 94; PULSE 94–122; RESP 16–20; TEMP 36.1–36.6; O2SAT 98; BMI 18.8
--- NOTE | 2020-08-12 13:38 | PC.NURSE ---
difficulty focussing during triage, frequently stating she's scared, reports hallucinations, unable to answer many questions, mother states that the pt was discharged on monday and was improved compared to her initial state that she was sent to the ed in last monday, mother states that the pt hasn't been sleeping, fearful all the time, hallucinating, attempted to flee the house and the family was afraid to leave her alone and took turns staying w her, pt was covid + on 07/20/20 or 07/27/20 and told to quarentine till 08/04/20, has had n/v over the past few days but no other symptoms per the mother, pt unable to answer any of these questions
[2020-08-12 14:12] LABS: MANUAL DIFF FLAG NO
[2020-08-12 14:15] LABS: Basophils Percent Auto 0.3 % (0-2); Hematocrit 38.7 % (37-47); Hemoglobin 13.3 g/dl (12.0-16.0); Imm Gran Abs Auto 0.04 X10*3/uL (0.00-0.03); Imm Gran Pct Auto 0.4 % (0.0-0.4); Lymphocytes Absolute Auto 2.2 X10*3/uL (1.2-4.9); Mean Corpuscular HGB Conc 34.4 g/dl (31.0-35.0); Mean Corpuscular Hemoglobin 30.9 pg (27.0-33.0); Mean Corpuscular Volume 89.8 fL (80-98); Mean Platelet Volume 10.2 fL (9.4-12.3); Monocytes Absolute Auto 0.5 X10*3/uL (0.1-1.2); Monocytes Percent Auto 4.3 % (2-11); Neutrophils Absolute Auto 7.8 X10*3/uL (2.0-8.3); Platelet Count 344 X10*3/uL (160-400); Red Blood Count 4.31 X10*6/uL (4.20-5.50); Red Cell Distribution Width 11.4 % (11.0-16.0); White Blood Count 10.6 X10*3/uL (4.8-10.8)
[2020-08-12 14:19] LABS: Glucose Urine UA NEG (NEG); Leukocyte Esterase Urine NEG (NEG); Nitrite Urine NEG (NEG); Specific Gravity - Urine >= 1.030 (1.005-1.025); Urine Blood TRACE (NEG); Urine Ketones NEG (NEG); Urine Protein 1+ MG/DL (NEG-TRACE)
[2020-08-12] MEDS: OLANZapine 5 MG TABLET PO (14:22)
--- NOTE | 2020-08-12 14:22 | PC.NURSE ---
medicated w 5mg po zyprexa, pacing in pod, very anxious, redirectable, went in shower w all her clothes on , ate a small amt of a burger
[2020-08-12 14:27] LABS: INTERNATIONAL NORM RATIO 1.2 (0.9-1.1); Prothrombin Time 14.3 SEC (10.8-13.0)
[2020-08-12 14:30] LABS: Partial Thromboplastin Time 32.2 SEC (24.1-38.0)
[2020-08-12 14:32] LABS: Appearance Urine HAZY; Color Urine YELLOW; UPreg QC Valid YES
[2020-08-12 14:33] LABS: Urine Pregnancy NEGATIVE (NEGATIVE)
[2020-08-12 14:39] LABS: Ethanol < 10 mg/dL
[2020-08-12 14:40] LABS: Bacteria Urine TRACE /LPF; RBC Urine 0-2 /HPF (0); Squamous Epithelial Cell Urine 1+ /LPF; WBC Urine 0 /HPF (0-4)
[2020-08-12 14:43] LABS: Alanine Aminotransferase 14 U/L (0-31); Albumin Level 5.2 g/dL (3.5-5.0); Alkaline Phosphatase 81 U/L (39-117); Amphetamine Screen Urine Not Detected (Not Detect); Anion Gap 18 (12-20); Aspartate Amino Transferase 14 U/L (5-31); Barbiturates, Urine Not Detected (Not Detect); Benzodiazepines Screen Urine Not Detected (Not Detect); Blood Urea Nitrogen 13 mg/dL (9-16); Calcium 9.8 mg/dL (8.4-10.2); Cannabinoid Screen Urine POSITIVE (Not Detect); Carbon Dioxide 23 mmol/L (22-29); Chloride 105 mmol/L (96-108); Cocaine Screen Urine Not Detected (Not Detect); Creatinine Clr Calc Pharmacy 91.5; Estimated Glomerular Filt Rate > 60; Glucose Random 117 mg/dL (60-115); Opiate Screen Urine Not Detected (Not Detect); Phencyclidine Screen Urine Not Detected (Not Detect); Potassium 3.7 mmol/l (3.3-5.1); Sodium 142 mmol/L (135-145); Total Protein 7.9 g/dL (6.5-8.0)
--- NOTE | 2020-08-12 15:03 | PC.NURSE ---
Report received. Pt disorganized. Getting into the shower with clothes on, disrobing and coming out of room naked, wandering, keeps stating she is scared.
--- NOTE | 2020-08-12 15:41 | ED.PSYCH ---
HPI - Psych General Chief Complaint: Psychiatric Symptoms Stated Complaint: CRISIS,AMS Time Seen by Provider: 08/12/20 13:42 Source: patient Mode of arrival: ambulatory Limitations: no limitations History of Present Illness HPI Narrative: This is 29-year-old female to this emergency room and to myself from her visit here on August 06 (5 days ago) at that time she presented with erratic disorganized and paranoid behavior with some delusions and not sleeping for days she was worked up in emergency room subsequently it got better was evaluated by our crisis team as well as Psychiatry as she got better with sleep she was cleared for discharge home with outpatient follow-up. Apparently she did get better but over the past several days she has decompensated again has not been sleeping and having similar symptoms with increasing paranoid, disorganized behavior and has not slept in past 3 days. Last visit symptoms thought to be related to sleep deprivation verses illicit drugs her toxic come back for amphetamines and she was on Adderall. Per family aside from regular marijuana use the do not suspect any other drug use. Patient upon arrival disorganized, somewhat erratic but calmer than her previous visit she is alert and oriented x3 states to me that she is afraid to go to sleep as she might not wake up in time to wake up her brother Chau Relevant history: She along with multiple other family members did test positive for COVID at the beginning of the month she was on quarantine without symptoms. Patient to get tested though she was asymptomatic on last visit and was positive which she is likely to test positive for up to 8-10 weeks after. She remains asymptomatic. No fever no upper respiratory symptoms. Onset (ago): day(s) Duration: getting worse History of same: Yes Relieving factors: none Exacerbating factors: none Related Data Home Medications Medication Instructions Recorded Confirmed No Known Home Meds 08/07/20 08/07/20 Allergies Allergy/AdvReac Type Severity Reaction Status Date / Time No Known Allergies Allergy Unverified 04/02/20 17:31 Review of Systems Review of Systems: Constitutional: No Weight loss, No Fever, No Chills, No Night Sweats, No Fatigue, No Malaise ENT/Mouth: No Hearing loss, No Ear Pain, No Nasal Congestion, No Sinus Pain, No Hoarseness, No sore throat, No Rhinorrhea, No Swallowing Difficulty Eyes: No Eye Pain, No Swelling, No Redness, No Foreign Body, No Discharge, No Vision Changes Cardiovascular: No Chest Pain, No SOB, No Dyspnea on Exertion, No Orthopnea, No Edema, No Palpitations Respiratory: No Cough, No Sputum, No Wheezing, No Smoke Exposure, No Dyspnea Gastrointestinal: No Nausea, No Vomiting, No Diarrhea, No Constipation, No abdominal Pain Genitourinary: Negative Musculoskeletal: Negative Skin: No Skin Lesions, No rash Neuro: No Weakness, No Numbness, No Paresthesias, No Loss of Consciousness, No Dizziness, No Headache Psych: Denies SI or HI Heme/Lymph: No Bruising, No Bleeding,No Lymphadenopathy Endocrine: No Polyuria, No Polydipsia, No Temperature Intolerance Yes all other systems are reviewed and are negative [facility] Past Medical History Surgical History (Updated 08/06/20 @ 20:44 by Santy Abdul NP) History of appendectomy Social History Social History Alcohol intake: unknown Smoking Status: Unknown if ever smoked Advance Directives: Yes Advance Directives Information Provided: Yes Advance Directives on File: No Physical Exam Vital Signs: Vital Signs: Last Vital Signs Temp 97 F 08/12/20 15:45 Pulse 94 08/12/20 15:45 Resp 18 08/12/20 15:45 BP 130/94 H 08/12/20 15:45 Pulse Ox 98 08/12/20 15:45 Body Mass Index 18.8 Reviewed Const: Other: Though she is alert and oriented x3 she is appearing disheveled and disorganized. General: No intoxicated appearing Nutritional Appearance: average body habitus Orientation/consciousness: patient oriented x3 HENMT: Head: Yes normal to inspection Ears: hearing grossly normal bilaterally Eyes: General: appearance normal, both eyes and all related structures Visual Syed: normal visual syed by confrontation Neck: Neck: Yes normal visual inspection, No positive Brudzinski's sign, No positive Kernig's sign and No tender Thyroid: Thyroid normal Chest: Chest palpation & inspection: normal inspection of the chest Resp: Effort & Inspection: normal respiratory effort Auscultation: clear to auscultation bilaterally Cardio: Jugular venous distension: no JVD Rhythm: regular rhythm Heart sounds: S1 normal heart sound present and S2 normal heart sound present GI: Inspection: Yes normal to inspection Percussion: Yes normal to percussion Auscultation: normal bowel sounds : General: Yes no CVA tenderness Back/Spine/Pelvis: Back: no CVA tenderness Skin: General skin exam: no rashes or lesions noted Neuro: General: patient oriented x3 Extrem: General: Yes normal to inspection Course Course Course Narrative: On last visit detailed workup including CT of the head was reviewed. Upon arrival she is hemodynamically stable afebrile, 98% on room air. She does appear to be very restless and anxious doing certain things repetitively in her heart rate is 122 during triage upon arrival. She offers no medical complaints. Will recheck labs dome with suspicions are low for organic cause. Will appreciate psychiatry input as she was evaluated on last visit and familiar with service. Of note she does look slightly better from last time. Reevaluation(s) Reevaluation #1: Has been cooperative but continues with disorganized bizarre behavior she will dress down to her undergarments and when she went to take a shower she put her clothes on took a shower in her clothes and came out of the shower when to room in removed her clothes. Assisted by staff with ADLs. Labs overall stable. COVID negative. Reevaluation #2: [id number] Sign-out night team Laura OPEN CLAIMS REPRESENTATIVE pending disposition Consultations Consultation #1: Case discussed with Marita Herron psychiatry and P who evaluated patient at bedside does recommend starting her on Zyprexa which she was given here already and will put in p.r.n. dosing. Consultation #2: Care team at bedside for evaluation. MDM - Psych Lab Data Result diagrams: 08/12/20 14:06 08/12/20 14:05 Labs: Lab Results 08/12/20 08/12/20 08/12/20 Range/Units 14:05 14:05 14:05 WBC (4.8-10.8) X10*3/uL RBC (4.20-5.50) X10*6/uL Hgb (12.0-16.0) g/dl Hct (37-47) % MCV (80-98) fL MCH (27.0-33.0) pg MCHC (31.0-35.0) g/dl RDW (11.0-16.0) % Plt Count (160-400) X10*3/uL MPV (9.4-12.3) fL Immature Gran % (Auto) (0.0-0.4) % Neut % (Auto) (45-73) % Lymph % (Auto) (20-40) % [place] % (Auto) (2-11) % Eos % (Auto) (0-4) % Baso % (Auto) (0-2) % Lymph # (Auto) (1.2-4.9) X10*3/uL [place] # (Auto) (0.1-1.2) X10*3/uL Eos # (Auto) (0.0-0.4) X10*3/uL Baso # (Auto) (0.0-0.2) X10*3/uL Abs Immat Gran (auto) (0.00-0.03) X10*3/uL Absolute Neuts (auto) (2.0-8.3) X10*3/uL Absolute Nucleated RBC (0.0-0.012) X10*3/uL Nucleated RBC % (auto) (0.0-0.2) /100WBC PT 14.3 H (10.8-13.0) SEC INR 1.2 H (0.9-1.1) APTT 32.2 (24.1-38.0) SEC Sodium 142 (135-145) mmol/L Potassium 3.7 (3.3-5.1) mmol/l Chloride 105 (96-108) mmol/L Carbon Dioxide 23 (22-29) mmol/L Anion Gap 18 (12-20) BUN 13 (9-16) mg/dL Creatinine 0.72 (0.5-1.4) mg/dL Estim Creat Clear Calc 91.5 Estimated GFR > 60 Random Glucose 117 H (60-115) mg/dL Calcium 9.8 (8.4-10.2) mg/dL Total Bilirubin 1.0 (0.0-1.0) mg/dL AST 14 D (5-31) U/L ALT 14 (0-31) U/L Alkaline Phosphatase 81 (39-117) U/L Total Protein 7.9 (6.5-8.0) g/dL Albumin 5.2 H (3.5-5.0) g/dL TSH 0.95 (0.32-4.0) uIU/mL Urine Color Urine Appearance Urine pH (5.0-8.0) Ur Specific [place] (1.005-1.025) Urine Protein (NEG-TRACE) MG/DL Urine Glucose (UA) (NEG) MG/DL Urine Ketones (NEG) MG/DL Urine Blood (NEG) Urine Nitrite (NEG) Ur Leukocyte Esterase (NEG) Urine RBC (0) /HPF Urine WBC (0-4) /HPF Ur Squamous Epith Cells /LPF Urine Bacteria /LPF Urine Test (NEGATIVE) Urine Opiates Screen (Not Detect) Ur Barbiturates Screen (Not Detect) Ur Phencyclidine Scrn (Not Detect) Ur Amphetamines Screen (Not Detect) U Benzodiazepines Scrn (Not Detect) Urine Cocaine Screen (Not Detect) U Marijuana (THC) Screen (Not Detect) Ethyl Alcohol < 10 mg/dL T.pallidum Ab (EIA) (Nonreactive) COVID-19 (JASWINDER) (Negative) COVID-19 Clin Com 08/12/20 08/12/20 08/12/20 Range/Units 14:05 14:05 14:05 WBC (4.8-10.8) X10*3/uL RBC (4.20-5.50) X10*6/uL Hgb (12.0-16.0) g/dl Hct (37-47) % MCV (80-98) fL MCH (27.0-33.0) pg MCHC (31.0-35.0) g/dl RDW (11.0-16.0) % Plt Count (160-400) X10*3/uL MPV (9.4-12.3) fL Immature Gran % (Auto) (0.0-0.4) % Neut % (Auto) (45-73) % Lymph % (Auto) (20-40) % [place] % (Auto) (2-11) % Eos % (Auto) (0-4) % Baso % (Auto) (0-2) % Lymph # (Auto) (1.2-4.9) X10*3/uL [place] # (Auto) (0.1-1.2) X10*3/uL Eos # (Auto) (0.0-0.4) X10*3/uL Baso # (Auto) (0.0-0.2) X10*3/uL Abs Immat Gran (auto) (0.00-0.03) X10*3/uL Absolute Neuts (auto) (2.0-8.3) X10*3/uL Absolute Nucleated RBC (0.0-0.012) X10*3/uL Nucleated RBC % (auto) (0.0-0.2) /100WBC PT (10.8-13.0) SEC INR (0.9-1.1) APTT (24.1-38.0) SEC Sodium (135-145) mmol/L Potassium (3.3-5.1) mmol/l Chloride (96-108) mmol/L Carbon Dioxide (22-29) mmol/L Anion Gap (12-20) BUN (9-16) mg/dL Creatinine (0.5-1.4) mg/dL Estim Creat Clear Calc Estimated GFR Random Glucose (60-115) mg/dL Calcium (8.4-10.2) mg/dL Total Bilirubin (0.0-1.0) mg/dL AST (5-31) U/L ALT (0-31) U/L Alkaline Phosphatase (39-117) U/L Total Protein (6.5-8.0) g/dL Albumin (3.5-5.0) g/dL TSH (0.32-4.0) uIU/mL Urine Color YELLOW Urine Appearance HAZY Urine pH 6.0 (5.0-8.0) Ur Specific [place] >= 1.030 H (1.005-1.025) Urine Protein 1+ H (NEG-TRACE) MG/DL Urine Glucose (UA) NEG (NEG) MG/DL Urine Ketones NEG (NEG) MG/DL Urine Blood TRACE (NEG) Urine Nitrite NEG (NEG) Ur Leukocyte Esterase NEG (NEG) Urine RBC 0-2 (0) /HPF Urine WBC 0 (0-4) /HPF Ur Squamous Epith Cells 1+ /LPF Urine Bacteria TRACE /LPF Urine Test NEGATIVE (NEGATIVE) Urine Opiates Screen Not Detected (Not Detect) Ur Barbiturates Screen Not Detected (Not Detect) Ur Phencyclidine Scrn Not Detected (Not Detect) Ur Amphetamines Screen Not Detected (Not Detect) U Benzodiazepines Scrn Not Detected (Not Detect) Urine Cocaine Screen Not Detected (Not Detect) U Marijuana (THC) Screen POSITIVE H (Not Detect) Ethyl Alcohol mg/dL T.pallidum Ab (EIA) Nonreactive (Nonreactive) COVID-19 (JASWINDER) (Negative) COVID-19 Clin Com 08/12/20 08/12/20 Range/Units 14:06 15:36 WBC 10.6 (4.8-10.8) X10*3/uL RBC 4.31 (4.20-5.50) X10*6/uL Hgb 13.3 (12.0-16.0) g/dl Hct 38.7 (37-47) % MCV 89.8 (80-98) fL MCH 30.9 (27.0-33.0) pg MCHC 34.4 (31.0-35.0) g/dl RDW 11.4 (11.0-16.0) % Plt Count 344 (160-400) X10*3/uL MPV 10.2 (9.4-12.3) fL Immature Gran % (Auto) 0.4 (0.0-0.4) % Neut % (Auto) 74.0 H (45-73) % Lymph % (Auto) 21.0 (20-40) % [place] % (Auto) 4.3 (2-11) % Eos % (Auto) 0.0 (0-4) % Baso % (Auto) 0.3 (0-2) % Lymph # (Auto) 2.2 (1.2-4.9) X10*3/uL [place] # (Auto) 0.5 (0.1-1.2) X10*3/uL Eos # (Auto) 0.0 (0.0-0.4) X10*3/uL Baso # (Auto) 0.0 (0.0-0.2) X10*3/uL Abs Immat Gran (auto) 0.04 H (0.00-0.03) X10*3/uL Absolute Neuts (auto) 7.8 (2.0-8.3) X10*3/uL Absolute Nucleated RBC 0.000 (0.0-0.012) X10*3/uL Nucleated RBC % (auto) 0.0 (0.0-0.2) /100WBC PT (10.8-13.0) SEC INR (0.9-1.1) APTT (24.1-38.0) SEC Sodium (135-145) mmol/L Potassium (3.3-5.1) mmol/l Chloride (96-108) mmol/L Carbon Dioxide (22-29) mmol/L Anion Gap (12-20) BUN (9-16) mg/dL Creatinine (0.5-1.4) mg/dL Estim Creat Clear Calc Estimated GFR Random Glucose (60-115) mg/dL Calcium (8.4-10.2) mg/dL Total Bilirubin (0.0-1.0) mg/dL AST (5-31) U/L ALT (0-31) U/L Alkaline Phosphatase (39-117) U/L Total Protein (6.5-8.0) g/dL Albumin (3.5-5.0) g/dL TSH (0.32-4.0) uIU/mL Urine Color Urine Appearance Urine pH (5.0-8.0) Ur Specific [place] (1.005-1.025) Urine Protein (NEG-TRACE) MG/DL Urine Glucose (UA) (NEG) MG/DL Urine Ketones (NEG) MG/DL Urine Blood (NEG) Urine Nitrite (NEG) Ur Leukocyte Esterase (NEG) Urine RBC (0) /HPF Urine WBC (0-4) /HPF Ur Squamous Epith Cells /LPF Urine Bacteria /LPF Urine Test (NEGATIVE) Urine Opiates Screen (Not Detect) Ur Barbiturates Screen (Not Detect) Ur Phencyclidine Scrn (Not Detect) Ur Amphetamines Screen (Not Detect) U Benzodiazepines Scrn (Not Detect) Urine Cocaine Screen (Not Detect) U Marijuana (THC) Screen (Not Detect) Ethyl Alcohol mg/dL T.pallidum Ab (EIA) (Nonreactive) COVID-19 (JASWINDER) Negative (Negative) COVID-19 Clin Com See Note Discharge Plan Discharge Clinical Impression: Acute psychosis Prescriptions: No Action No Known Home Meds RF: 0
[2020-08-12 16:02] LABS: COVID-19 Test Negative (Negative)
--- NOTE | 2020-08-12 16:10 | P.CNPS_ITS ---
History of Present Illness Date of Service: 08/12/2020 Chief Complaint: CRISIS,AMS Reason for Consult: disorganized, paranoid, recent ED admission for similar presentation Requesting physician: Santy Abdul Discussed with referring provider: Yes Sources of Information: patient interviewed and chart reviewed HPI Narrative: Patient known to this medical technical writer the previous emergency room admission on Monday, August 07. At that time she was admitted with what appeared to be substance induced delirium--please see notes from that visit for full details, including discharge disposition. Today patient presents with paranoia, disorganized, and appears to be experiencing visual hallucinations. Per RN, family reported that while patient was better upon discharge over the weekend, she was not at baseline, and began to worsen over this week. It is reported that she was not sleeping, and that family was watching her all of the time as they were afraid for her safety. Patient seen in room [address] [facility] ED, she is laying in bed with no shirt on, several attempts to have her either put a shirt on or her Shaquille but she did not. Patient was tearful during interview, reporting that she was scared, unable to articulate why she was scared, she mentioned her brother Chau and then began to go on a tangent about something unrelated. She appears to be responding to internal stimuli, she is seen scanning the room, reaching her hands out to touch things that are not there. Her current presentation is not as severe as last week when she had to be restrained due to safety concerns. Medical Evaluation Reviewed: Yes unremarkable Review of Systems Review of Systems Yes Unobtainable due to mental status [facility] Surgical History (Updated 08/06/20 @ 20:44 by Santy Abdul NP) History of appendectomy Diagnostics Vital Signs (24Hr): Vital Signs - 24 hr 08/12/20 13:15 Temperature 98 F Pulse Rate 122 H Respiratory Rate 18 Pulse Oximetry 98 Body Mass Index 18.8 Labs Results: 08/12/20 14:06 08/12/20 14:05 Labs: Laboratory Results - last 48 hr 08/12/20 08/12/20 08/12/20 14:05 14:05 14:05 WBC RBC Hgb Hct MCV MCH MCHC RDW Plt Count MPV Immature Gran % (Auto) Neut % (Auto) Lymph % (Auto) [place] % (Auto) Eos % (Auto) Baso % (Auto) Lymph # (Auto) [place] # (Auto) Eos # (Auto) Baso # (Auto) Abs Immat Gran (auto) Absolute Neuts (auto) Absolute Nucleated RBC Nucleated RBC % (auto) PT 14.3 H INR 1.2 H APTT 32.2 Sodium 142 Potassium 3.7 Chloride 105 Carbon Dioxide 23 Anion Gap 18 BUN 13 Creatinine 0.72 Estim Creat Clear Calc 91.5 Estimated GFR > 60 Random Glucose 117 H Calcium 9.8 Total Bilirubin 1.0 AST 14 D ALT 14 Alkaline Phosphatase 81 Total Protein 7.9 Albumin 5.2 H Urine Color Urine Appearance Urine pH Ur Specific [place] Urine Protein Urine Glucose (UA) Urine Ketones Urine Blood Urine Nitrite Ur Leukocyte Esterase Urine RBC Urine WBC Ur Squamous Epith Cells Urine Bacteria Urine Test Urine Opiates Screen Ur Barbiturates Screen Ur Phencyclidine Scrn Ur Amphetamines Screen U Benzodiazepines Scrn Urine Cocaine Screen U Marijuana (THC) Screen Ethyl Alcohol < 10 COVID-19 (JASWINDER) COVID-19 Clin Com 08/12/20 08/12/20 08/12/20 14:05 14:05 14:06 WBC 10.6 RBC 4.31 Hgb 13.3 Hct 38.7 MCV 89.8 MCH 30.9 MCHC 34.4 RDW 11.4 Plt Count 344 MPV 10.2 Immature Gran % (Auto) 0.4 Neut % (Auto) 74.0 H Lymph % (Auto) 21.0 [place] % (Auto) 4.3 Eos % (Auto) 0.0 Baso % (Auto) 0.3 Lymph # (Auto) 2.2 [place] # (Auto) 0.5 Eos # (Auto) 0.0 Baso # (Auto) 0.0 Abs Immat Gran (auto) 0.04 H Absolute Neuts (auto) 7.8 Absolute Nucleated RBC 0.000 Nucleated RBC % (auto) 0.0 PT INR APTT Sodium Potassium Chloride Carbon Dioxide Anion Gap BUN Creatinine Estim Creat Clear Calc Estimated GFR Random Glucose Calcium Total Bilirubin AST ALT Alkaline Phosphatase Total Protein Albumin Urine Color YELLOW Urine Appearance HAZY Urine pH 6.0 Ur Specific [place] >= 1.030 H Urine Protein 1+ H Urine Glucose (UA) NEG Urine Ketones NEG Urine Blood TRACE Urine Nitrite NEG Ur Leukocyte Esterase NEG Urine RBC 0-2 Urine WBC 0 Ur Squamous Epith Cells 1+ Urine Bacteria TRACE Urine Test NEGATIVE Urine Opiates Screen Not Detected Ur Barbiturates Screen Not Detected Ur Phencyclidine Scrn Not Detected Ur Amphetamines Screen Not Detected U Benzodiazepines Scrn Not Detected Urine Cocaine Screen Not Detected U Marijuana (THC) Screen POSITIVE H Ethyl Alcohol COVID-19 (JASWINDER) COVID-19 Clin Com 08/12/20 15:36 WBC RBC Hgb Hct MCV MCH MCHC RDW Plt Count MPV Immature Gran % (Auto) Neut % (Auto) Lymph % (Auto) [place] % (Auto) Eos % (Auto) Baso % (Auto) Lymph # (Auto) [place] # (Auto) Eos # (Auto) Baso # (Auto) Abs Immat Gran (auto) Absolute Neuts (auto) Absolute Nucleated RBC Nucleated RBC % (auto) PT INR APTT Sodium Potassium Chloride Carbon Dioxide Anion Gap BUN Creatinine Estim Creat Clear Calc Estimated GFR Random Glucose Calcium Total Bilirubin AST ALT Alkaline Phosphatase Total Protein Albumin Urine Color Urine Appearance Urine pH Ur Specific [place] Urine Protein Urine Glucose (UA) Urine Ketones Urine Blood Urine Nitrite Ur Leukocyte Esterase Urine RBC Urine WBC Ur Squamous Epith Cells Urine Bacteria Urine Test Urine Opiates Screen Ur Barbiturates Screen Ur Phencyclidine Scrn Ur Amphetamines Screen U Benzodiazepines Scrn Urine Cocaine Screen U Marijuana (THC) Screen Ethyl Alcohol COVID-19 (JASWINDER) Negative COVID-19 Clin Com See Note Mental Status Exam Mental Status Exam Patient Appearance: Disheveled and Inappropriate (shirt off) Patient Orientation: Person, Place, Time and Situation Level of Consciousness: Awake, Alert and Inappropriate Patient Behavior: Guarded, Fearful and Confused Mood Description: Anxious and Apprehensive Affect Description: Anxious and Apprehensive Patient Cognition Impaired: Yes Ability to Follow Directions: Good Speech Pattern: Clear Hallucinations: Auditory (denies, though unclear ) and Visual Delusions: Paranoid Ideation Perceptual Disturbances: Hallucinations Thought Content: positive for Tangential and positive for Disorganized Judgement: Poor Medications Medications Current Medications Generic Name Dose Route Start Last Admin Trade Name Freq PRN Reason Stop Dose Admin Olanzapine 5 mg 08/12/20 21:00 Olanzapine 5 Mg Tablet PO BID VERONICA Olanzapine 2.5 mg 08/12/20 15:55 Olanzapine 2.5 Mg Tablet PO RQ6H PRN anxiety/restlessness Trazodone HCl 50 mg 08/12/20 21:00 Trazodone Hcl 50 Mg Tablet PO BEDTIME VERONICA Allergies Allergies Allergy/AdvReac Type Severity Reaction Status Date / Time No Known Allergies Allergy Unverified 04/02/20 17:31 Assessment & Plan Assessment & Plan (1) Amphetamine intoxication delirium: Status: Acute Code(s): F15.921 - Other stimulant use, unspecified with intoxication delirium Recommendations: * Scheduled Olanzapine as well as PRN to address any increase in agitation or anxiety * Allow patient to sleep and provide low stim environment when possible * Monitor closely as she is quite disinhibited and walking around not wearing a shirt * Current presentation may be from recent amphetamine use * R/O psychotic disorder or mood disorder with psychotic features Greater than 50% of the session was spent on counseling and/or coordination of care
[2020-08-12 16:35] LABS: Thyroid Stimulating Hormone 0.95 uIU/mL (0.32-4.0)
[2020-08-12 16:39] LABS: Syphilis Screen Nonreactive (Nonreactive)
--- NOTE | 2020-08-12 16:57 | PC.NURSE ---
Continues to be disorganized, stating she is scared. Appears to be responding to internal stimuli, reaching for things in front of her that aren't there. Continuously undressing and redressing, is able to remain covered while outside of room when redirected.
[2020-08-12] MEDS: OLANZapine 2.5 MG TABLET PO (17:02)
--- NOTE | 2020-08-12 18:40 | MHC.CARE ---
Pt assessed by the CARE Team and found IPLOC.
[2020-08-12] MEDS: diphenhydrAMINE HCL 50 MG/ML VIAL IM (19:34)
[2020-08-12] MEDS: OLANZapine 10 MG VIAL 5 MG IM (19:35)
--- NOTE | 2020-08-12 19:49 | PC.NURSE ---
Patient wandering in POD, disrobing, loud, psychotically disorganized, disruptive, engaging in unsafe behavior, found under shower with hospital attire on, provider notified/ordered olanzapine 5 mg IM and Benadryl 50 IM, patient willingly accepted it, pending effect, will continue to monitor.
[2020-08-13] VITALS: RESP 16
--- NOTE | 2020-08-13 | US_ITS ---
EXAMINATION: US PELVIS CLINICAL INFORMATION: Evaluate IUD. COMPARISON: CT from 11/19/2018 TECHNIQUE: Ultrasound of the pelvis is performed using transabdominal transducer. FINDINGS: Uterus: The uterus is anteverted and measures 7.3 x 2.9 x 4.9 cm. The double wall endometrial thickness is 0.[address] in typical positioning. The uterus is smooth in contour and has normal myometrial echogenicity. No visible fibroid. Adnexa: Both ovaries are visualized. There is normal color flow to the adnexa. There is no ovarian torsion. There is no pelvic ascites or fluid collection. Right ovary measures 3.5 x 2.4 x 2.5 cm. Left ovary measures 2.9 x 1.4 x 2.5 cm. US/US pelvic complete IMPRESSION: Normal positioning of the IUD.
[2020-08-13] MEDS: OLANZapine 5 MG TABLET PO ×3 (01:35→22:36)
[2020-08-13] MEDS: traZODone HCL 50 MG TABLET PO ×2 (01:35→22:37)
--- NOTE | 2020-08-13 02:04 | PC.NURSE ---
Patient just woke up, crying loud, disrobing, naked in her room, needed help to have attire on, provider notified/no new order/administered night time meds which missed d/t sleeping was administered per provider's order. Patient needed lot of prompting to convince her to take her medication. Patient is in milieu trying to call her mother. Will continue to monitor.
--- NOTE | 2020-08-13 03:24 | PC.NURSE ---
Patient continues crying, keep saying i am scared, wanted speak with mother, currently talking with mother, disrobing intermittently, requires constant observation and redirection, will continue to monitor.
--- NOTE | 2020-08-13 06:17 | PC.NURSE ---
Patient was up since 129, in and out of room multiple times, called her mother multiple times, mood changes intermittently, engages in disrobing, hyper-sexuality, will continue to monitor.
--- NOTE | 2020-08-13 06:48 | PC.NURSE ---
Patient wanted to call mother instead she called switch board and reported that ED POD staff are keeping her captive, patient started yelling screaming, advised to go her room, prn olanzapine 2.5 mg offered/spat out, told staff get out of her room. Will continue to monitor.
--- NOTE | 2020-08-13 07:03 | PC.NURSE ---
Report received. PT currently crying, ambulating with steady gait, speech loud. Pt is inpatient bedsearch.
[2020-08-13 09:21] VITALS: BP 102/81; PULSE 103; RESP 16; TEMP 37.6; O2SAT 97
--- NOTE | 2020-08-13 09:48 | PC.NURSE ---
Pt walking around the unit, tearful at times, asking to leave. Pt reports feeling confused, anxious. Pt states she does not want to be in her room due to the aliens , she reports they are in her head. PT states she doesn't remember being in the hospital last week, states she is just scared. Verbal reassurance given.
--- NOTE | 2020-08-13 09:56 | MHC.CARE ---
CARE Team updated Pts mother regarding plan of care.
[2020-08-13] MEDS: LORazepam 1 MG TABLET 2 MG PO (12:09)
--- NOTE | 2020-08-13 12:11 | PC.NURSE ---
Pt requested medication, states she is anxious and just wants to go home. Pt medicated per EMAR.
[2020-08-13 16:30] VITALS: BP 110/71; PULSE 81; RESP 18; TEMP 36.8; O2SAT 97
--- NOTE | 2020-08-13 19:20 | PC.NURSE ---
Report received. PT is watching TV in the common area. Calm and cooperative. PT is waiting to transferred to .
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
[2020-08-14] MEDS: LORazepam 1 MG TABLET 2 MG PO (00:10)
[2020-08-14] MEDS: traZODone HCL 50 MG TABLET PO (00:10)
[2020-08-14 06:10] VITALS: BP 139/65; PULSE 107; RESP 18; TEMP 36.6; O2SAT 99
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
[2020-08-14 18:00] VITALS: BP 136/77; PULSE 113; TEMP 36.6
[2020-08-14 20:02] LABS: C. trachomatis RNA TMA NOT DETECTED (NOT DETECTED); N. gonorrhoeae RNA TMA NOT DETECTED (NOT DETECTED)
[2020-08-15 05:00] VITALS: BP 120/77; PULSE 87; RESP 16; TEMP 36.2; O2SAT 97
[2020-08-15] MEDS: Nicotine 14 MG PATCH.TD24 TRANSDERMA (09:32)
--- NOTE | 2020-08-15 09:38 | P.PNPSI_ITS ---
Subjective Subjective Date of Service: 08/15/20 Reason For Visit: Psychosis Subjective Notes: Conditional Voluntary Interim History: H and P noted. Pt appears calmer but somewhat confused. Focused on DC. Hanging around RN station. Now minimizing Sx in anticipation of quick DC. Erratic w meds. Medication Compliance: Intermittent Side effects from medications: No Attending Groups: Yes Review of Systems Review of Systems Yes all other systems are reviewed and are negative and Unobtainable due to mental status Mental Status Exam Mental Status Exam Patient Appearance: Disheveled and Inappropriate (shirt off) Patient Orientation: Person, Place, Time and Situation Level of Consciousness: Awake, Alert and Inappropriate Patient Behavior: Guarded, Fearful and Confused Mood Description: Anxious and Apprehensive Affect Description: Anxious and Apprehensive Patient Cognition Impaired: Yes Ability to Follow Directions: Good Speech Pattern: Clear Diagnostics Vital Signs (24Hr): Vital Signs - 24 hr 08/14/20 18:00 08/15/20 05:00 Temperature 98 F 97.1 F Pulse Rate 113 H 87 Respiratory Rate 16 Blood Pressure 136/77 120/77 Pulse Oximetry 97 Body Mass Index 18.8 Labs Results: 08/12/20 14:06 08/12/20 14:05 Labs: Laboratory Results - last 48 hr 08/12/20 08/13/20 08/13/20 14:05 14:36 Unknown T.pallidum Ab (EIA) Nonreactive Chlam trachomat DNA PCR Cancelled C.trachomatis RNA (TMA) NOT DETECTED Chlamydia/GC Comment SEE NOTE N.gonorrhoeae DNA (PCR) Cancelled N.gonorrhoeae RNA (TMA) NOT DETECTED Imaging Radiology Impressions: ITS Impressions Pelvis Ultrasound 08/13/20 00:00 IMPRESSION: Normal positioning of the IUD. Medications Medications Current Medications Generic Name Dose Route Start Last Admin Trade Name Freq PRN Reason Stop Dose Admin Acetaminophen 650 mg 08/13/20 19:38 Acetaminophen 325 Mg Tablet PO Q6H PRN Headache/Pain Mild Scale (1-3) Al Hydroxide/Mg Hydroxide 30 ml 08/13/20 19:38 Magnesium Hydrox/Alum Hydrox 30 Ml Oral.Susp PO Q6H PRN Heartburn/Nausea Lorazepam 1 mg 08/14/20 14:41 Lorazepam 1 Mg Tablet PO Q6H PRN Anxiety Magnesium Hydroxide 30 ml 08/13/20 19:38 Milk Of Magnesia 30 Ml Oral.Susp PO DAILY PRN Constipation Nicotine 14 mg 08/13/20 19:40 08/15/20 09:32 Nicotine 14 Mg Patch.Td24 TRANSDERMA 14 mg DAILY VERONICA Administration Olanzapine 2.5 mg 08/12/20 15:55 08/12/20 17:02 Olanzapine 2.5 Mg Tablet PO 2.5 mg RQ6H PRN Administration anxiety/restlessness Olanzapine 10 mg 08/14/20 21:00 08/14/20 21:59 Olanzapine Odt 10 Mg Tab.Rapdis TRANSLINGU Not Given BEDTIME VERONICA Olanzapine 5 mg 08/14/20 14:45 08/15/20 09:35 Olanzapine Odt 10 Mg Tab.Rapdis TRANSLINGU Not Given DAILY VERONICA Trazodone HCl 50 mg 08/12/20 21:00 08/14/20 21:59 Trazodone Hcl 50 Mg Tablet PO Not Given BEDTIME VERONICA Trazodone HCl 50 mg 08/13/20 19:38 08/14/20 00:10 Trazodone Hcl 50 Mg Tablet PO 50 mg BEDTIME PRN Administration Insomnia Allergies Allergies Allergy/AdvReac Type Severity Reaction Status Date / Time No Known Allergies Allergy Unverified 04/02/20 17:31 Assessment & Plan Assessment & Plan (1) 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: Status: Acute Code(s): F15.922 - Other stimulant use, unspecified with intoxication with perceptual disturbance Assessment and Plan: Ms. Sheridan is a 29 year-old woman with no previous hx of psychosis who was initially brought to [facility] ED on 08/07/2020 due to disorganized behavior, paranoid delusions, VH/AH. Pt had medical work up including head CT, utox (+ amphetamines/+cannabinoids), TSH, RPR, CBC/CMP, Urine analysis- all unremarkable. Pt was discharged from ED on 08/10/2020, apparently cleared from psychosis but without any medication antipsychotic which had been given while in ED. Pt was brought back by family on 08/13/20 as she continued to present with paranoid delusions, VH/AH. 1. Admit to M5 2. 15 minutes checks for safety 3. will increase olanzapine to 5mg po daily and 10mg po qhs. Now refusing meds. Collect collateral. ? committment Greater than 50% of the session was spent on counseling and/or coordination of care Reason for contiued inpatient stay Substantial Risk for: inability to function and rapid decompensation
--- NOTE | 2020-08-16 08:13 | HO.PSYCHPN ---
Subjective Subjective Date of Service: 08/16/20 Reason For Visit: Psychosis Subjective Notes: Conditional Voluntary Interim History: Pt remains grossly psychotic and fearful. Needed a med restraint OLZ 5 + Loraz 1 mg as was not redirectable. Thre Jello at staff/was paranoid/self talking/walking bent as if to hide/dragged mattress down corridor . AH noted. Tolerated meds well. Rested for a while then was up. Stated I don't want to talk about it re debriefing. Medication Compliance: No Side effects from medications: No Attending Groups: No Mental Status Exam Mental Status Exam Patient Appearance: Disheveled and Unkempt Patient Orientation: Place Level of Consciousness: Restless Patient Behavior: Suspicious, Fearful and Uncooperative Mood Description: Suspicious and Fearful Affect Description: Nervous and Apprehensive Patient Cognition Impaired: Yes Ability to Follow Directions: Poor Speech Pattern: Difficulty Finding Words and Mumbled Hallucinations: Auditory Delusions: Paranoid Ideation Thought Content: positive for Loose Associations, positive for Thought Blocking and positive for Incoherent Abnormal Motor Activity Signs and Symptoms: Aggression, Agitation, Hyperactivity and Restlessness Judgement: Poor Diagnostics Vital Signs (24Hr): Body Mass Index 18.8 Labs Results: 08/12/20 14:06 08/12/20 14:05 Labs: Laboratory Results - last 48 hr 08/13/20 Unknown C.trachomatis RNA (TMA) NOT DETECTED Chlamydia/GC Comment SEE NOTE N.gonorrhoeae RNA (TMA) NOT DETECTED Imaging Radiology Impressions: ITS Impressions Pelvis Ultrasound 08/13/20 00:00 IMPRESSION: Normal positioning of the IUD. Medications Medications Current Medications Generic Name Dose Route Start Last Admin Trade Name Lupilloq PRN Reason Stop Dose Admin Acetaminophen 650 mg 08/13/20 19:38 Acetaminophen 325 Mg Tablet PO Q6H PRN Headache/Pain Mild Scale (1-3) Al Hydroxide/Mg Hydroxide 30 ml 08/13/20 19:38 Magnesium Hydrox/Alum Hydrox 30 Ml Oral.Susp PO Q6H PRN Heartburn/Nausea Lorazepam 1 mg 08/14/20 14:41 Lorazepam 1 Mg Tablet PO Q6H PRN Anxiety Magnesium Hydroxide 30 ml 08/13/20 19:38 Milk Of Magnesia 30 Ml Oral.Susp PO DAILY PRN Constipation Nicotine 14 mg 08/13/20 19:40 08/15/20 09:32 Nicotine 14 Mg Patch.Td24 TRANSDERMA 14 mg DAILY VERONICA Administration Olanzapine 2.5 mg 08/12/20 15:55 08/12/20 17:02 Olanzapine 2.5 Mg Tablet PO 2.5 mg RQ6H PRN Administration anxiety/restlessness Olanzapine 10 mg 08/14/20 21:00 08/15/20 21:55 Olanzapine Odt 10 Mg Tab.Rapdis TRANSLINGU Not Given BEDTIME VERONICA Olanzapine 5 mg 08/14/20 14:45 08/15/20 09:35 Olanzapine Odt 10 Mg Tab.Rapdis TRANSLINGU Not Given DAILY VERONICA Trazodone HCl 50 mg 08/12/20 21:00 08/15/20 21:55 Trazodone Hcl 50 Mg Tablet PO Not Given BEDTIME VERONICA Trazodone HCl 50 mg 08/13/20 19:38 08/14/20 00:10 Trazodone Hcl 50 Mg Tablet PO 50 mg BEDTIME PRN Administration Insomnia Allergies Allergies Allergy/AdvReac Type Severity Reaction Status Date / Time No Known Allergies Allergy Unverified 04/02/20 17:31 Assessment & Plan Ct meds as prescribed. Refuses meds. Need petition for civil commitment Patient educated on: diagnosis Informed Consent: does not understand Reason for contiued inpatient stay Substantial Risk for: harm to others, inability to function and rapid decompensation
[2020-08-16] MEDS: OLANZapine 10 MG VIAL 5 MG IM (08:16)
[2020-08-16] MEDS: LORazepam 2 MG/ML VIAL 1 MG IM (08:16)
[2020-08-16 08:20] VITALS: BP 146/97; PULSE 82; RESP 16; O2SAT 96
[2020-08-16 08:35] VITALS: RESP 16
[2020-08-16 08:50] VITALS: BP 144/93; PULSE 109; RESP 14; O2SAT 98
[2020-08-16 09:05] VITALS: RESP 16
--- NOTE | 2020-08-16 10:06 | PC.NURSE ---
PT WAS MEDICATION RESTRAINED ON 08/16/20 AT 0805. PT WAS IN THE HALLWAY DURING STAFF REPORT LOOKING THROUGH THE WINDOW. SHE BEGAN TO TAKE HER MATTRESS OUT OF HER ROOM AND DRAGGED IT DOWN THE HALLWAY. PT STARTED TO SLAM HERSELF INTO DOORS AND WAS ACTING ACUTELY CONFUSED. PT WAS SMELLING A SLIPPER WHEN STAFF CAME OUT OF REPORT. PT BEGAN CHASING A STAFF MEMBER DOWN THE LACEY FOR A BELONGING OF THE STAFF MEMBER THAT WAS IN HER HAND. PT WAS TOLD TO MOVE AWAY FROM THE STAFF MEMBER BUT CONTINUED TO CHUNG HER DOWN THE HALLWAY. PT GRABBED A SIGN OFF THE FLOOR AND REFUSED TO PUT IT BACK. PT WAS OFFERED A PRN MEDICATION. STAFF ATTEMPTED TO REDIRECT THE LOCATION OF THE PT. PT RAN INTO THE KITCHEN, OPENING THE FRIDGE AND BEGAN TAKING ITEMS OUT. STAFF TOLD THE PT TO PUT THE ITEMS DOWN. THE PT STARTED THROWING JELLO AND PUDDING CUPS, BREAKING THEM OPEN ONTO THE FLOOR IN THE KITCHEN. PT WAS UNABLE TO BE CALMED DOWN/REDIRECTED. PT RECEIVED IM INJECTIONS FROM MD ORDER. PT TOOK MEDICATIONS WELL. SHE HAS BEEN IN BEHAVIORAL CONTROL BUT STILL VERY CONFUSED. HER VITAL SIGNS ARE STABLE THEY WERE CHECKED EVERY 15 MINUTES FOR AN HOUR. PT WAS SEEN BY MD. RESTRAINT PAPERWORK HAS BEEN FILLED OUT TO PROTOCOL. PT'S MOTHER WAS NOTIFIED OF RESTRAINT ON 08/16/20 AT APPROXIMATELY 0940. APPROPRIATE STAFF WAS NOTIFIED. DEBRIEFING WAS DONE BETWEEN STAFF WELL WITH THE PT.
[2020-08-16] MEDS: OLANZapine 2.5 MG TABLET PO (15:57)
[2020-08-16] MEDS: LORazepam 1 MG TABLET PO ×2 (15:57→23:59)
[2020-08-16 18:00] VITALS: BP 126/66; PULSE 91; TEMP 37.4
[2020-08-16] MEDS: LORazepam 1 MG TABLET 2 MG PO (20:42)
[2020-08-16] MEDS: HaloperidoL 5 MG TABLET PO (20:42)
[2020-08-16] MEDS: Benztropine Mesylate 1 MG TABLET PO (20:42)
[2020-08-16 21:06] VITALS: BP 103/66; PULSE 97; RESP 16; TEMP 37.1; O2SAT 100
--- NOTE | 2020-08-16 21:16 | PM.EVENT ---
Event Note Date of Service: 08/16/20 Event Note: Asked by M5 nursing staff to assess patient as she was reportedly found hanging from a shower renny with leggings around her neck. Patient currently resting quietly in room with staff observer and her mother present (was visiting the patient). She awakened to voice and interacts. She did not want to discuss what happened earlier. She states no neck pain and no trouble breathing. Her voice is clear. On exam vitals are stable. There is no stridor and no tenderness to palpation of the neck. Normal oropharynx on exam and no bruising or gutierrez apparent on the anterior or lateral neck. She appears stable and is without respiratory compromise or stridor from the episode so would recommend continuing to monitor as you are.
[2020-08-16] MEDS: traZODone HCL 50 MG TABLET PO (23:59)
[2020-08-16] MEDS: OLANZapine ODT 10 MG TAB.RAPDIS TRANSLINGU (23:59)
[2020-08-17 05:20] VITALS: BP 125/59; PULSE 87; RESP 16; TEMP 36.6; O2SAT 99
[2020-08-17 05:30] VITALS: BP 125/59; PULSE 87; RESP 16; TEMP 36.6; O2SAT 99
[2020-08-17] MEDS: Nicotine 14 MG PATCH.TD24 TRANSDERMA (07:23)
[2020-08-17] MEDS: OLANZapine ODT 10 MG TAB.RAPDIS 5 MG TRANSLINGU (09:02)
[2020-08-17] MEDS: LORazepam 1 MG TABLET PO (09:02)
[2020-08-17] MEDS: diphenhydrAMINE HCL 25 MG TABLET 50 MG PO ×2 (12:43→20:01)
[2020-08-17] MEDS: clonazePAM 0.5 MG TABLET PO ×2 (12:43→20:01)
[2020-08-17 16:15] VITALS: BP 118/59; PULSE 112; TEMP 37.1; O2SAT 98
--- NOTE | 2020-08-17 16:59 | P.PNPSI_ITS ---
Subjective Subjective Date of Service: 08/17/20 Reason For Visit: Psychosis Interim History: Pt continues to present as disorganized, exit seeking. Very fearful, internally preoccupied. She reports hearing voices, talking about her, and that's the reason for her to tried to hand herself as she thought that would stop them from talking about me. Pt had rash on knees, arms- mother reports this happened also when she had olanzapine while in ED. Suspect rash related to Olanzapine- will stop it. Add benadryl and switch to risperidone Review of Systems Review of Systems Yes all other systems are reviewed and are negative and Unobtainable due to mental status Mental Status Exam Mental Status Exam Patient Appearance: Disheveled and Unkempt Patient Orientation: Place Level of Consciousness: Restless Patient Behavior: Suspicious, Fearful and Uncooperative Mood Description: Suspicious and Fearful Affect Description: Nervous and Apprehensive Patient Cognition Impaired: Yes Ability to Follow Directions: Poor Speech Pattern: Difficulty Finding Words and Mumbled Diagnostics Vital Signs (24Hr): Vital Signs - 24 hr 08/16/20 18:00 08/16/20 21:06 08/17/20 05:20 Temperature 99.4 F 98.8 F 97.9 F Pulse Rate 91 97 87 Respiratory Rate 16 16 Blood Pressure 126/66 103/66 125/59 L Pulse Oximetry 100 99 08/17/20 05:30 Temperature 97.9 F Pulse Rate 87 Respiratory Rate 16 Blood Pressure 125/59 L Pulse Oximetry 99 Body Mass Index 18.8 Labs Results: 08/12/20 14:06 08/12/20 14:05 Imaging Radiology Impressions: ITS Impressions Pelvis Ultrasound 08/13/20 00:00 IMPRESSION: Normal positioning of the IUD. Medications Medications Current Medications Generic Name Dose Route Start Last Admin Trade Name Freq PRN Reason Stop Dose Admin Acetaminophen 650 mg 08/13/20 19:38 Acetaminophen 325 Mg Tablet PO Q6H PRN Headache/Pain Mild Scale (1-3) Al Hydroxide/Mg Hydroxide 30 ml 08/13/20 19:38 Magnesium Hydrox/Alum Hydrox 30 Ml Oral.Susp PO Q6H PRN Heartburn/Nausea Clonazepam 0.5 mg 08/17/20 11:45 08/17/20 12:43 Clonazepam 0.5 Mg Tablet PO 0.5 mg BID VERONICA Administration Diphenhydramine HCl 50 mg 08/17/20 11:39 08/17/20 12:43 Diphenhydramine Hcl 25 Mg Tablet PO 50 mg Q6H PRN Administration Allergic Reaction Lorazepam 1 mg 08/14/20 14:41 08/17/20 09:02 Lorazepam 1 Mg Tablet PO 1 mg Q6H PRN Administration Anxiety Magnesium Hydroxide 30 ml 08/13/20 19:38 Milk Of Magnesia 30 Ml Oral.Susp PO DAILY PRN Constipation Nicotine 14 mg 08/13/20 19:40 08/17/20 07:23 Nicotine 14 Mg Patch.Td24 TRANSDERMA 14 mg DAILY VERONICA Administration Risperidone 0.5 mg 08/17/20 21:00 Risperidone 0.5 Mg Tablet PO BID VERONICA Trazodone HCl 50 mg 08/12/20 21:00 08/16/20 23:59 Trazodone Hcl 50 Mg Tablet PO 50 mg BEDTIME VERONICA Administration Trazodone HCl 50 mg 08/13/20 19:38 08/14/20 00:10 Trazodone Hcl 50 Mg Tablet PO 50 mg BEDTIME PRN Administration Insomnia Allergies Allergies Allergy/AdvReac Type Severity Reaction Status Date / Time No Known Allergies Allergy Unverified 04/02/20 17:31 Assessment & Plan Assessment & Plan (1) 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: Status: Acute Code(s): F15.922 - Other stimulant use, unspecified with intoxication with perceptual disturbance Assessment and Plan: Ms. Sheridan is a 29 year-old woman with no previous hx of psychosis who was initially brought to [facility] ED on 08/07/2020 due to disorganized behavior, paranoid delusions, VH/AH. Pt had medical work up including head CT, utox (+ amphetamines/+cannabinoids), TSH, RPR, CBC/CMP, Urine analysis- all unremarkable. Pt was discharged from ED on 08/10/2020, apparently cleared from psychosis but without any medication antipsychotic which had been given while in ED. Pt was brought back by family on 08/13/20 as she continued to present with paranoid delusions, VH/AH. 1. d/c olanzapine ? rash 2. start risperidone 0.5mg po BID 3. Schedule clonazepam 0.5mg po BID 4. File if pt gravely disable to sign CV, currently on Section 12. Greater than 50% of the session was spent on counseling and/or coordination of care Reason for contiued inpatient stay Substantial Risk for: harm to self and inability to function
[2020-08-17] MEDS: risperiDONE 0.5 MG TABLET PO (20:01)
[2020-08-17] MEDS: traZODone HCL 50 MG TABLET PO (20:01)
[2020-08-17] MEDS: Benztropine Mesylate 0.5 MG TABLET PO (22:14)
[2020-08-18] MEDS: Acetaminophen 325 MG TABLET 650 MG PO ×2 (00:25→22:54)
[2020-08-18] MEDS: traZODone HCL 50 MG TABLET PO ×2 (01:22→20:05)
[2020-08-18] MEDS: LORazepam 1 MG TABLET PO ×2 (03:42→10:02)
[2020-08-18] MEDS: risperiDONE 0.5 MG TABLET PO (03:42)
[2020-08-18 05:50] VITALS: BP 134/67; PULSE 105; RESP 16; TEMP 36.6; O2SAT 98
[2020-08-18] MEDS: clonazePAM 0.5 MG TABLET PO ×2 (10:02→20:05)
[2020-08-18] MEDS: Nicotine 14 MG PATCH.TD24 TRANSDERMA (10:02)
[2020-08-18] MEDS: risperiDONE 1 MG TABLET PO ×2 (10:02→20:05)
[2020-08-18] MEDS: Benztropine Mesylate 2 MG/2 ML VIAL 1 MG IM (12:45)
[2020-08-18] MEDS: LORazepam 2 MG/ML VIAL IM (12:45)
[2020-08-18] MEDS: Haloperidol Lactate 5 MG/ML VIAL IM (12:45)
--- NOTE | 2020-08-18 12:59 | PC.NURSE ---
Patient's mother notified of medication restraint due to patient's inability to remain safe. Patient jumping on bed, chair and window sill. Patient unable to follow redirection or limits regarding safety. MD notified ordered medications George Mei Cogentin IM.
[2020-08-18 13:00] VITALS: BP 135/63; PULSE 127; RESP 22; TEMP 37.1; O2SAT 96
[2020-08-18 13:15] VITALS: BP 128/75; PULSE 120; RESP 18; TEMP 36.9; O2SAT 98
[2020-08-18 13:30] VITALS: BP 120/67; PULSE 118; RESP 18; TEMP 36.9; O2SAT 97
[2020-08-18 13:45] VITALS: BP 124/73; PULSE 123; RESP 20; TEMP 36.9; O2SAT 97
--- NOTE | 2020-08-18 16:42 | PC.NURSE ---
On 08/16/20 at approx 19:30 while doing five minute safety checks, T/W noticed pt Venice Sheridan in shower A suspended by a pair of her own leggings tied around her neck to the shower curtain renny. T/W noticed the bathroom door slightly open. T/w grabbed pt by legs and lifted her up, and moments later the shower curtain renny snapped off the renny. Dr Jason Martinez was notified and contacted for orders. Pt was given Haldol 5mg po, Ativan 2mg po, and Cogentin 1mg po. Pt's vital signs were within normal limits. Pt was seen hospitalist Eduardo Ruiz. Pt or staff were not hurt or injured. Pt reported I'm not a patient her, I signed myself out Pt mother was also contacted and she came in to be with her daughter. pt was placed on a 1:1. Pt will continued to be monitored for safety.
--- NOTE | 2020-08-18 17:25 | HO.PSYCHPN ---
Subjective Subjective Date of Service: 08/18/20 Reason For Visit: Psychosis Interim History: Pt continues to present as disorganized, exit seeking. Very fearful, internally preoccupied. She is unable to keep a coherent conversation. She kept repeating I want out of this game over and over. She later was trying to jump off the bed, head down to the floor. She was not responsing to redirection, pt too disorganized and psychotic to have rational conversation. She needed IM medications including haldol 5mg IM; Lorazepam 2mg IM; cogentin 1mg IM. She was calmer after, slept for most of the afternoon Review of Systems Review of Systems Yes all other systems are reviewed and are negative and Unobtainable due to mental status Mental Status Exam Mental Status Exam Patient Appearance: Disheveled and Unkempt Patient Orientation: Place Level of Consciousness: Restless Patient Behavior: Suspicious, Fearful and Uncooperative Mood Description: Suspicious and Fearful Affect Description: Nervous and Apprehensive Patient Cognition Impaired: Yes Ability to Follow Directions: Poor Speech Pattern: Difficulty Finding Words and Mumbled Diagnostics Vital Signs (24Hr): Vital Signs - 24 hr 08/18/20 05:50 08/18/20 13:00 08/18/20 13:15 Temperature 97.9 F 98.7 F 98.5 F Pulse Rate 105 H 127 H 120 H Respiratory Rate 16 22 H 18 Blood Pressure 134/67 135/63 128/75 Pulse Oximetry 98 96 98 08/18/20 13:30 08/18/20 13:45 Temperature 98.5 F 98.5 F Pulse Rate 118 H 123 H Respiratory Rate 18 20 Blood Pressure 120/67 124/73 Pulse Oximetry 97 97 Body Mass Index 18.8 Labs Results: 08/12/20 14:06 08/12/20 14:05 Imaging Radiology Impressions: ITS Impressions Pelvis Ultrasound 08/13/20 00:00 IMPRESSION: Normal positioning of the IUD. Medications Medications Current Medications Generic Name Dose Route Start Last Admin Trade Name Freq PRN Reason Stop Dose Admin Acetaminophen 650 mg 08/13/20 19:38 08/18/20 00:25 Acetaminophen 325 Mg Tablet PO 650 mg Q6H PRN Administration Headache/Pain Mild Scale (1-3) Al Hydroxide/Mg Hydroxide 30 ml 08/13/20 19:38 Magnesium Hydrox/Alum Hydrox 30 Ml Oral.Susp PO Q6H PRN Heartburn/Nausea Benztropine Mesylate 0.5 mg 08/17/20 22:05 08/17/20 22:14 Benztropine Mesylate 0.5 Mg Tablet PO 0.5 mg TID PRN Administration Extrapyramidal Effects Clonazepam 0.5 mg 08/17/20 11:45 08/18/20 10:02 Clonazepam 0.5 Mg Tablet PO 0.5 mg BID VERONICA Administration Diphenhydramine HCl 50 mg 08/17/20 11:39 08/17/20 20:01 Diphenhydramine Hcl 25 Mg Tablet PO 50 mg Q6H PRN Administration Allergic Reaction Lorazepam 1 mg 08/14/20 14:41 08/18/20 10:02 Lorazepam 1 Mg Tablet PO 1 mg Q6H PRN Administration Anxiety Magnesium Hydroxide 30 ml 08/13/20 19:38 Milk Of Magnesia 30 Ml Oral.Susp PO DAILY PRN Constipation Nicotine 14 mg 08/13/20 19:40 08/18/20 10:02 Nicotine 14 Mg Patch.Td24 TRANSDERMA 14 mg DAILY VERONICA Administration Risperidone 0.5 mg 08/17/20 17:05 08/18/20 03:42 Risperidone 0.5 Mg Tablet PO 0.5 mg Q6H PRN Administration agitation Risperidone 1 mg 08/18/20 09:15 08/18/20 10:02 Risperidone 1 Mg Tablet PO 1 mg BID VERONICA Administration Trazodone HCl 50 mg 08/12/20 21:00 08/17/20 20:01 Trazodone Hcl 50 Mg Tablet PO 50 mg BEDTIME VERONICA Administration Trazodone HCl 50 mg 08/13/20 19:38 08/18/20 01:22 Trazodone Hcl 50 Mg Tablet PO 50 mg BEDTIME PRN Administration Insomnia Allergies Allergies Allergy/AdvReac Type Severity Reaction Status Date / Time No Known Allergies Allergy Unverified 04/02/20 17:31 Assessment & Plan Assessment & Plan (1) 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: Status: Acute Code(s): F15.922 - Other stimulant use, unspecified with intoxication with perceptual disturbance Assessment and Plan: Ms. Sheridan is a 29 year-old woman with no previous hx of psychosis who was initially brought to [facility] ED on 08/07/2020 due to disorganized behavior, paranoid delusions, VH/AH. Pt had medical work up including head CT, utox (+ amphetamines/+cannabinoids), TSH, RPR, CBC/CMP, Urine analysis- all unremarkable. Pt was discharged from ED on 08/10/2020, apparently cleared from psychosis but without any medication antipsychotic which had been given while in ED. Pt was brought back by family on 08/13/20 as she continued to present with paranoid delusions, VH/AH. 1. d/c olanzapine ? rash 2. start risperidone 0.5mg po BID 3. Schedule clonazepam 0.5mg po BID 4. File if pt gravely disable to sign CV, currently on Section 12. Greater than 50% of the session was spent on counseling and/or coordination of care Reason for contiued inpatient stay Substantial Risk for: harm to self and inability to function
[2020-08-18 20:00] VITALS: BP 132/75; PULSE 110; TEMP 37.1; O2SAT 98
[2020-08-19 05:35] VITALS: BP 112/65; PULSE 100; RESP 16; TEMP 36.6; O2SAT 98
[2020-08-19] MEDS: Nicotine 14 MG PATCH.TD24 TRANSDERMA (08:56)
[2020-08-19] MEDS: LORazepam 1 MG TABLET PO (11:44)
[2020-08-19] MEDS: clonazePAM 0.5 MG TABLET PO ×2 (11:44→22:01)
[2020-08-19] MEDS: Benztropine Mesylate 0.5 MG TABLET PO (11:45)
[2020-08-19] MEDS: risperiDONE 1 MG TABLET PO ×2 (11:45→22:01)
--- NOTE | 2020-08-19 15:13 | HO.PSYCHPN ---
Subjective Subjective Date of Service: 08/20/20 Reason For Visit: Psychosis Interim History: Pt with jorge mathis, able to answer few questions in that she knows she is in [place]. She states she is here because she couldn't sleep. She continues to present with disorganized behavior, needing 1:1 for safety. She present as hypervigilant and fearful as if responding to internal stimuli. She is not taking medications consistently. She needs a lot of encouragement. No able to have coherent conversation for the most part. Review of Systems Review of Systems Yes all other systems are reviewed and are negative and Unobtainable due to mental status Mental Status Exam Mental Status Exam Patient Appearance: Disheveled and Unkempt Patient Orientation: Place Level of Consciousness: Restless Patient Behavior: Suspicious, Fearful and Uncooperative Mood Description: Suspicious and Fearful Affect Description: Nervous and Apprehensive Patient Cognition Impaired: Yes Ability to Follow Directions: Poor Speech Pattern: Difficulty Finding Words and Mumbled Diagnostics Vital Signs (24Hr): Vital Signs - 24 hr 08/18/20 20:00 08/19/20 05:35 Temperature 98.8 F 97.9 F Pulse Rate 110 H 100 Respiratory Rate 16 Blood Pressure 132/75 112/65 Pulse Oximetry 98 98 Body Mass Index 18.8 Labs Results: 08/12/20 14:06 08/12/20 14:05 Imaging Radiology Impressions: ITS Impressions Pelvis Ultrasound 08/13/20 00:00 IMPRESSION: Normal positioning of the IUD. Medications Medications Current Medications Generic Name Dose Route Start Last Admin Trade Name Freq PRN Reason Stop Dose Admin Acetaminophen 650 mg 08/13/20 19:38 08/18/20 22:54 Acetaminophen 325 Mg Tablet PO 650 mg Q6H PRN Administration Headache/Pain Mild Scale (1-3) Al Hydroxide/Mg Hydroxide 30 ml 08/13/20 19:38 Magnesium Hydrox/Alum Hydrox 30 Ml Oral.Susp PO Q6H PRN Heartburn/Nausea Benztropine Mesylate 0.5 mg 08/17/20 22:05 08/19/20 11:45 Benztropine Mesylate 0.5 Mg Tablet PO 0.5 mg TID PRN Administration Extrapyramidal Effects Clonazepam 0.5 mg 08/17/20 11:45 08/19/20 11:44 Clonazepam 0.5 Mg Tablet PO 0.5 mg BID VERONICA Administration Diphenhydramine HCl 50 mg 08/17/20 11:39 08/17/20 20:01 Diphenhydramine Hcl 25 Mg Tablet PO 50 mg Q6H PRN Administration Allergic Reaction Lorazepam 1 mg 08/14/20 14:41 08/19/20 11:44 Lorazepam 1 Mg Tablet PO 1 mg Q6H PRN Administration Anxiety Magnesium Hydroxide 30 ml 08/13/20 19:38 Milk Of Magnesia 30 Ml Oral.Susp PO DAILY PRN Constipation Nicotine 14 mg 08/13/20 19:40 08/19/20 08:56 Nicotine 14 Mg Patch.Td24 TRANSDERMA 14 mg DAILY VERONICA Administration Risperidone 0.5 mg 08/17/20 17:05 08/18/20 03:42 Risperidone 0.5 Mg Tablet PO 0.5 mg Q6H PRN Administration agitation Risperidone 1 mg 08/18/20 09:15 08/19/20 11:45 Risperidone 1 Mg Tablet PO 1 mg BID VERONICA Administration Trazodone HCl 50 mg 08/12/20 21:00 08/18/20 20:05 Trazodone Hcl 50 Mg Tablet PO 50 mg BEDTIME VERONICA Administration Trazodone HCl 50 mg 08/13/20 19:38 08/18/20 01:22 Trazodone Hcl 50 Mg Tablet PO 50 mg BEDTIME PRN Administration Insomnia Allergies Allergies Allergy/AdvReac Type Severity Reaction Status Date / Time No Known Allergies Allergy Unverified 04/02/20 17:31 Assessment & Plan Assessment & Plan (1) 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: Status: Acute Code(s): F15.922 - Other stimulant use, unspecified with intoxication with perceptual disturbance Assessment and Plan: Ms. Sheridan is a 29 year-old woman with no previous hx of psychosis who was initially brought to [facility] ED on 08/07/2020 due to disorganized behavior, paranoid delusions, VH/AH. Pt had medical work up including head CT, utox (+ amphetamines/+cannabinoids), TSH, RPR, CBC/CMP, Urine analysis- all unremarkable. Pt was discharged from ED on 08/10/2020, apparently cleared from psychosis but without any medication antipsychotic which had been given while in ED. Pt was brought back by family on 08/13/20 as she continued to present with paranoid delusions, VH/AH. 1. d/c olanzapine ? rash 2. start risperidone 0.5mg po BID 3. Schedule clonazepam 0.5mg po BID 4. File if pt gravely disable to sign CV, currently on Section 12. Greater than 50% of the session was spent on counseling and/or coordination of care Reason for contiued inpatient stay Substantial Risk for: harm to self and inability to function
[2020-08-19 18:00] VITALS: BP 130/85; PULSE 135; TEMP 36.6
--- NOTE | 2020-08-19 21:47 | PC.NURSE ---
Pt had refused all evening meds, Trazodone, Klonopin and Risperidone. Pts Mother called and said she wanted to come in and give pt meds. Pt meds pulled again.
[2020-08-19] MEDS: traZODone HCL 50 MG TABLET PO (22:01)
[2020-08-20] MEDS: LORazepam 1 MG TABLET PO (00:59)
[2020-08-20] MEDS: traZODone HCL 50 MG TABLET PO ×2 (00:59→20:26)
[2020-08-20] MEDS: risperiDONE 0.5 MG TABLET PO (05:02)
[2020-08-20] MEDS: clonazePAM 0.5 MG TABLET PO ×2 (09:16→20:26)
[2020-08-20] MEDS: risperiDONE 1 MG TABLET PO ×2 (09:16→20:26)
[2020-08-20] MEDS: Nicotine 14 MG PATCH.TD24 TRANSDERMA (09:18)
--- NOTE | 2020-08-20 13:33 | HO.PSYCHPN ---
Subjective Subjective Date of Service: 08/23/20 Reason For Visit: Psychosis Interim History: Pt continues to present as hypervigilant, disorganized, very poor attention and inability to maintain coherent conversation. She repeats over and over I want out of this game, I want out of this game When asked directly about suicidal or homicidal ideation but unable to respond to question appropriately as her thought process is marked by loose associations and derailment. She continues on 1:1 for safety. Review of Systems Review of Systems No changes Constitutional: No Weight loss, No Fever, No Chills ENT/Mouth: No Hearing loss, No Ear Pain, No Nasal Congestion, No Sinus Pain, No Hoarseness, No sore throat, No Rhinorrhea, No Swallowing Difficulty Eyes: No Eye Pain, No Swelling, No Redness, No Vision Changes Cardiovascular: No Chest Pain, No SOB, No Dyspnea on Exertion, No Palpitations Respiratory: No Cough, No Sputum, No Wheezing Gastrointestinal: No Nausea, No Vomiting, No Diarrhea, No Constipation, No abdominal Pain Genitourinary: Negative Musculoskeletal: Negative Skin: No Skin Lesions, No rash Neuro: No Weakness, No Dizziness, No Headache Psych:+psychosis and disorganized Heme/Lymph: No Bruising, No Bleeding. Endocrine: No Polyuria, No Polydipsia, No Temperature Intolerance Yes all other systems are reviewed and are negative Yes all other systems are reviewed and are negative and Unobtainable due to mental status Mental Status Exam Mental Status Exam Patient Appearance: Disheveled and Unkempt Patient Orientation: Place Level of Consciousness: Restless Patient Behavior: Suspicious, Fearful and Uncooperative Mood Description: Suspicious and Fearful Affect Description: Nervous and Apprehensive Patient Cognition Impaired: Yes Ability to Follow Directions: Poor Speech Pattern: Difficulty Finding Words and Mumbled Diagnostics Vital Signs (24Hr): Vital Signs - 24 hr 08/22/20 18:00 08/23/20 06:00 Temperature 97.9 F 98.6 F Pulse Rate 109 H 116 H Respiratory Rate 16 Blood Pressure 127/83 129/70 Pulse Oximetry 98 Body Mass Index 18.8 Labs Results: 08/12/20 14:06 08/12/20 14:05 Labs: Laboratory Results - last 48 hr 08/21/20 08/21/20 08/21/20 13:48 13:48 13:48 D-Dimer < 200 Rheumatoid Factor < 15.0 T.pallidum Ab (EIA) Nonreactive Lyme Screen IgG & IgM Lyme Progressive Test 08/21/20 13:48 D-Dimer Rheumatoid Factor T.pallidum Ab (EIA) Lyme Screen IgG & IgM <0.90 Lyme Progressive Test TNP Imaging Radiology Impressions: ITS Impressions Pelvis Ultrasound 08/13/20 00:00 IMPRESSION: Normal positioning of the IUD. Medications Medications Current Medications Generic Name Dose Route Start Last Admin Trade Name Freq PRN Reason Stop Dose Admin Acetaminophen 650 mg 08/13/20 19:38 08/23/20 06:37 Acetaminophen 325 Mg Tablet PO 650 mg Q6H PRN Administration Headache/Pain Mild Scale (1-3) Al Hydroxide/Mg Hydroxide 30 ml 08/13/20 19:38 Magnesium Hydrox/Alum Hydrox 30 Ml Oral.Susp PO Q6H PRN Heartburn/Nausea Benztropine Mesylate 0.5 mg 08/17/20 22:05 08/19/20 11:45 Benztropine Mesylate 0.5 Mg Tablet PO 0.5 mg TID PRN Administration Extrapyramidal Effects Clonazepam 0.5 mg 08/17/20 11:45 08/23/20 08:23 Clonazepam 0.5 Mg Tablet PO 0.5 mg BID VERONICA Administration Diphenhydramine HCl 50 mg 08/17/20 11:39 08/17/20 20:01 Diphenhydramine Hcl 25 Mg Tablet PO 50 mg Q6H PRN Administration Allergic Reaction Lorazepam 1 mg 08/14/20 14:41 08/23/20 06:37 Lorazepam 1 Mg Tablet PO 1 mg Q6H PRN Administration Anxiety Magnesium Hydroxide 30 ml 08/13/20 19:38 Milk Of Magnesia 30 Ml Oral.Susp PO DAILY PRN Constipation Nicotine 14 mg 08/13/20 19:40 08/23/20 08:23 Nicotine 14 Mg Patch.Td24 TRANSDERMA 14 mg DAILY VERONICA Administration Risperidone 0.5 mg 08/17/20 17:05 08/20/20 05:02 Risperidone 0.5 Mg Tablet PO 0.5 mg Q6H PRN Administration agitation Risperidone 2 mg 08/21/20 21:00 08/23/20 08:23 Risperidone 2 Mg Tablet PO 2 mg BID VERONICA Administration Trazodone HCl 50 mg 08/12/20 21:00 08/22/20 20:38 Trazodone Hcl 50 Mg Tablet PO 50 mg BEDTIME VERONICA Administration Trazodone HCl 50 mg 08/13/20 19:38 08/20/20 00:59 Trazodone Hcl 50 Mg Tablet PO 50 mg BEDTIME PRN Administration Insomnia Allergies Allergies Allergy/AdvReac Type Severity Reaction Status Date / Time No Known Allergies Allergy Unverified 04/02/20 17:31 Assessment & Plan Assessment & Plan (1) 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: Status: Acute Code(s): F15.922 - Other stimulant use, unspecified with intoxication with perceptual disturbance Assessment and Plan: Ms. Sheridan is a 29 year-old woman with no previous hx of psychosis who was initially brought to [facility] ED on 08/07/2020 due to disorganized behavior, paranoid delusions, VH/AH. Pt had medical work up including head CT, utox (+ amphetamines/+cannabinoids), TSH, RPR, CBC/CMP, Urine analysis- all unremarkable. Pt was discharged from ED on 08/10/2020, apparently cleared from psychosis but without any medication antipsychotic which had been given while in ED. Pt was brought back by family on 08/13/20 as she continued to present with paranoid delusions, VH/AH. 1. d/c olanzapine ? rash versus amphetamine vasculitis like rash. 2. increase risperidone 2mg po BID 3. Schedule clonazepam 0.5mg po BID 4. File if pt gravely disable to sign CV, currently on Section 12. Greater than 50% of the session was spent on counseling and/or coordination of care Reason for contiued inpatient stay Substantial Risk for: harm to self and inability to function
[2020-08-20 18:00] VITALS: BP 129/67; PULSE 118; TEMP 36.9
[2020-08-21 06:00] VITALS: BP 123/61; PULSE 102; RESP 16; TEMP 36.6; O2SAT 97
[2020-08-21] MEDS: Nicotine 14 MG PATCH.TD24 TRANSDERMA (08:33)
[2020-08-21] MEDS: clonazePAM 0.5 MG TABLET PO ×2 (08:33→21:11)
[2020-08-21] MEDS: risperiDONE 1 MG TABLET PO (08:33)
--- NOTE | 2020-08-21 08:54 | P.PNPSI_ITS ---
Subjective Subjective Date of Service: 08/23/20 Reason For Visit: Psychosis Interim History: Pt continues to present with very poor attention. She is responding to internal stimuli, at times looking through this fiction and nonfiction prose writer, unable to maintain any logical conversation. She presents as extremely hypervigilant and fearful, scanning the room. She also is grossly disorganized, getting on top of bed, coming off, pacing. She's taking medications inconsistently, with much encouragement from staff. She continues to be on 1:1 for safety given self harm event apparently prompted by [facility]. Review of Systems Review of Systems Yes all other systems are reviewed and are negative and Unobtainable due to mental status Mental Status Exam Mental Status Exam Patient Appearance: Disheveled and Unkempt Patient Orientation: Place Level of Consciousness: Restless Patient Behavior: Suspicious, Fearful and Uncooperative Mood Description: Suspicious and Fearful Affect Description: Nervous and Apprehensive Patient Cognition Impaired: Yes Ability to Follow Directions: Poor Speech Pattern: Difficulty Finding Words and Mumbled Diagnostics Vital Signs (24Hr): Vital Signs - 24 hr 08/20/20 18:00 08/21/20 06:00 Temperature 98.5 F 98 F Pulse Rate 118 H 102 H Respiratory Rate 16 Blood Pressure 129/67 123/61 Pulse Oximetry 97 Body Mass Index 18.8 Labs Results: 08/12/20 14:06 08/12/20 14:05 Imaging Radiology Impressions: ITS Impressions Pelvis Ultrasound 08/13/20 00:00 IMPRESSION: Normal positioning of the IUD. Medications Medications Current Medications Generic Name Dose Route Start Last Admin Trade Name Freq PRN Reason Stop Dose Admin Acetaminophen 650 mg 08/13/20 19:38 08/18/20 22:54 Acetaminophen 325 Mg Tablet PO 650 mg Q6H PRN Administration Headache/Pain Mild Scale (1-3) Al Hydroxide/Mg Hydroxide 30 ml 08/13/20 19:38 Magnesium Hydrox/Alum Hydrox 30 Ml Oral.Susp PO Q6H PRN Heartburn/Nausea Benztropine Mesylate 0.5 mg 08/17/20 22:05 08/19/20 11:45 Benztropine Mesylate 0.5 Mg Tablet PO 0.5 mg TID PRN Administration Extrapyramidal Effects Clonazepam 0.5 mg 08/17/20 11:45 08/21/20 08:33 Clonazepam 0.5 Mg Tablet PO 0.5 mg BID VERONICA Administration Diphenhydramine HCl 50 mg 08/17/20 11:39 08/17/20 20:01 Diphenhydramine Hcl 25 Mg Tablet PO 50 mg Q6H PRN Administration Allergic Reaction Lorazepam 1 mg 08/14/20 14:41 08/20/20 00:59 Lorazepam 1 Mg Tablet PO 1 mg Q6H PRN Administration Anxiety Magnesium Hydroxide 30 ml 08/13/20 19:38 Milk Of Magnesia 30 Ml Oral.Susp PO DAILY PRN Constipation Nicotine 14 mg 08/13/20 19:40 08/21/20 08:33 Nicotine 14 Mg Patch.Td24 TRANSDERMA 14 mg DAILY VERONICA Administration Risperidone 0.5 mg 08/17/20 17:05 08/20/20 05:02 Risperidone 0.5 Mg Tablet PO 0.5 mg Q6H PRN Administration agitation Risperidone 1 mg 08/18/20 09:15 08/21/20 08:33 Risperidone 1 Mg Tablet PO 1 mg BID VERONICA Administration Trazodone HCl 50 mg 08/12/20 21:00 08/20/20 20:26 Trazodone Hcl 50 Mg Tablet PO 50 mg BEDTIME VERONICA Administration Trazodone HCl 50 mg 08/13/20 19:38 08/20/20 00:59 Trazodone Hcl 50 Mg Tablet PO 50 mg BEDTIME PRN Administration Insomnia Allergies Allergies Allergy/AdvReac Type Severity Reaction Status Date / Time No Known Allergies Allergy Unverified 04/02/20 17:31 Assessment & Plan Assessment & Plan (1) 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: Status: Acute Code(s): F15.922 - Other stimulant use, unspecified with intoxication with perceptual disturbance Assessment and Plan: Ms. Sheridan is a 29 year-old woman with no previous hx of psychosis who was initially brought to [facility] ED on 08/07/2020 due to disorganized behavior, paranoid delusions, VH/AH. Pt had medical work up including head CT, utox (+ amphetamines/+cannabinoids), TSH, RPR, CBC/CMP, Urine analysis- all unremarkable. Pt was discharged from ED on 08/10/2020, apparently cleared from psychosis but without any medication antipsychotic which had been given while in ED. Pt was brought back by family on 08/13/20 as she continued to present with paranoid delusions, VH/AH. 1. d/c olanzapine ? rash versus amphetamine vasculitis like rash. 2. increase risperidone 2mg po BID 3. Schedule clonazepam 0.5mg po BID 4. File if pt gravely disable to sign CV, currently on Section 12. Greater than 50% of the session was spent on counseling and/or coordination of care Reason for contiued inpatient stay Substantial Risk for: harm to self and inability to function
[2020-08-21 14:11] LABS: D Dimer < 200 NG/ML
[2020-08-21 14:22] LABS: Rheumatoid Factor < 15.0 IU/mL (<15.0)
[2020-08-21 14:43] LABS: Syphilis Screen Nonreactive (Nonreactive)
[2020-08-21 16:30] VITALS: BP 135/79; PULSE 104; TEMP 36.7
[2020-08-21] MEDS: risperiDONE 2 MG TABLET PO (21:09)
[2020-08-21] MEDS: traZODone HCL 50 MG TABLET PO (21:10)
[2020-08-22 06:15] VITALS: BP 129/68; PULSE 108; RESP 16; TEMP 36.9; O2SAT 97
[2020-08-22] MEDS: Nicotine 14 MG PATCH.TD24 TRANSDERMA (08:21)
[2020-08-22] MEDS: risperiDONE 2 MG TABLET PO ×2 (08:21→20:38)
[2020-08-22] MEDS: clonazePAM 0.5 MG TABLET PO ×2 (08:21→20:38)
[2020-08-22 18:00] VITALS: BP 127/83; PULSE 109; TEMP 36.6
--- NOTE | 2020-08-22 18:19 | P.PNPSI_ITS ---
Subjective Subjective Date of Service: 08/22/20 Reason For Visit: Psychosis Interim History: Pt distracted with poor attention. appears to be responding to internal stimuli, illogical She is guarded with TW. She presents hypervigilant and fearful, scanning the room. She is very disorganized. She's taking medications more consistently, needing much encouragement from staff. Review of Systems Review of Systems No changes Constitutional: No Weight loss, No Fever, No Chills ENT/Mouth: No Hearing loss, No Ear Pain, No Nasal Congestion, No Sinus Pain, No Hoarseness, No sore throat, No Rhinorrhea, No Swallowing Difficulty Eyes: No Eye Pain, No Swelling, No Redness, No Vision Changes Cardiovascular: No Chest Pain, No SOB, No Dyspnea on Exertion, No Palpitations Respiratory: No Cough, No Sputum, No Wheezing Gastrointestinal: No Nausea, No Vomiting, No Diarrhea, No Constipation, No abdominal Pain Genitourinary: Negative Musculoskeletal: Negative Skin: No Skin Lesions, No rash Neuro: No Weakness, No Dizziness, No Headache Psych:+psychosis and disorganized Heme/Lymph: No Bruising, No Bleeding. Endocrine: No Polyuria, No Polydipsia, No Temperature Intolerance Yes all other systems are reviewed and are negative Yes all other systems are reviewed and are negative Mental Status Exam Mental Status Exam Patient Appearance: Disheveled and Unkempt Patient Orientation: Place Level of Consciousness: Restless Patient Behavior: Suspicious, Fearful and Uncooperative Mood Description: Suspicious and Fearful Affect Description: Nervous and Apprehensive Patient Cognition Impaired: Yes Ability to Follow Directions: Poor Speech Pattern: Difficulty Finding Words and Mumbled Thought Process: Illogical Thought Content: positive for Disorganized Judgement: Poor Diagnostics Vital Signs (24Hr): Vital Signs - 24 hr 08/22/20 06:15 Temperature 98.5 F Pulse Rate 108 H Respiratory Rate 16 Blood Pressure 129/68 Pulse Oximetry 97 Body Mass Index 18.8 Labs Results: 08/12/20 14:06 08/12/20 14:05 Labs: Laboratory Results - last 48 hr 08/21/20 08/21/20 08/21/20 13:48 13:48 13:48 D-Dimer < 200 Rheumatoid Factor < 15.0 T.pallidum Ab (EIA) Nonreactive Imaging Radiology Impressions: ITS Impressions Pelvis Ultrasound 08/13/20 00:00 IMPRESSION: Normal positioning of the IUD. Medications Medications Current Medications Generic Name Dose Route Start Last Admin Trade Name Freq PRN Reason Stop Dose Admin Acetaminophen 650 mg 08/13/20 19:38 08/18/20 22:54 Acetaminophen 325 Mg Tablet PO 650 mg Q6H PRN Administration Headache/Pain Mild Scale (1-3) Al Hydroxide/Mg Hydroxide 30 ml 08/13/20 19:38 Magnesium Hydrox/Alum Hydrox 30 Ml Oral.Susp PO Q6H PRN Heartburn/Nausea Benztropine Mesylate 0.5 mg 08/17/20 22:05 08/19/20 11:45 Benztropine Mesylate 0.5 Mg Tablet PO 0.5 mg TID PRN Administration Extrapyramidal Effects Clonazepam 0.5 mg 08/17/20 11:45 08/22/20 08:21 Clonazepam 0.5 Mg Tablet PO 0.5 mg BID VERONICA Administration Diphenhydramine HCl 50 mg 08/17/20 11:39 08/17/20 20:01 Diphenhydramine Hcl 25 Mg Tablet PO 50 mg Q6H PRN Administration Allergic Reaction Lorazepam 1 mg 08/14/20 14:41 08/20/20 00:59 Lorazepam 1 Mg Tablet PO 1 mg Q6H PRN Administration Anxiety Magnesium Hydroxide 30 ml 08/13/20 19:38 Milk Of Magnesia 30 Ml Oral.Susp PO DAILY PRN Constipation Nicotine 14 mg 08/13/20 19:40 08/22/20 08:21 Nicotine 14 Mg Patch.Td24 TRANSDERMA 14 mg DAILY VERONICA Administration Risperidone 0.5 mg 08/17/20 17:05 08/20/20 05:02 Risperidone 0.5 Mg Tablet PO 0.5 mg Q6H PRN Administration agitation Risperidone 2 mg 08/21/20 21:00 08/22/20 08:21 Risperidone 2 Mg Tablet PO 2 mg BID VERONICA Administration Trazodone HCl 50 mg 08/12/20 21:00 08/21/20 21:10 Trazodone Hcl 50 Mg Tablet PO 50 mg BEDTIME VERONICA Administration Trazodone HCl 50 mg 08/13/20 19:38 08/20/20 00:59 Trazodone Hcl 50 Mg Tablet PO 50 mg BEDTIME PRN Administration Insomnia Allergies Allergies Allergy/AdvReac Type Severity Reaction Status Date / Time No Known Allergies Allergy Unverified 04/02/20 17:31 Assessment & Plan Assessment & Plan (1) 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: Status: Acute Code(s): F15.922 - Other stimulant use, unspecified with intoxication with perceptual disturbance Assessment and Plan: Ms. Sheridan is a 29 year-old woman with no previous hx of psychosis who was initially brought to [facility] [place] [place] ED on 08/07/2020 due to disorganized behavior, paranoid delusions, VH/AH. Pt had medical work up including head CT, utox (+ amphetam cornelio/+cannabinoids), TSH, RPR, CBC/CMP, Urine analysis- all unremarkable. Pt was discharged from ED on 08/10/2020, apparently cleared from psychosis but without any medication antipsychotic which had been given while in ED. Pt was brought back by family on 08/13/20 as she continued to present with paranoid delusions, VH/AH. Continue with current treatment plan as below: 1. d/c olanzapine ? rash 2. increase risperidone 1mg po BID 3. Schedule clonazepam 0.5mg po BID 4. File if pt gravely disable to sign CV, currently on Section 12. Greater than 50% of the session was spent on counseling and/or coordination of care Reason for contiued inpatient stay Substantial Risk for: harm to self, inability to function and med/psych decompensation
[2020-08-22] MEDS: traZODone HCL 50 MG TABLET PO (20:38)
[2020-08-22] MEDS: Acetaminophen 325 MG TABLET 650 MG PO (20:40)
[2020-08-23 01:42] LABS: Lyme Abs Screen <0.90 index
[2020-08-23 06:00] VITALS: BP 129/70; PULSE 116; RESP 16; TEMP 37; O2SAT 98
[2020-08-23] MEDS: Acetaminophen 325 MG TABLET 650 MG PO ×2 (06:37→16:01)
[2020-08-23] MEDS: LORazepam 1 MG TABLET PO (06:37)
[2020-08-23] MEDS: Nicotine 14 MG PATCH.TD24 TRANSDERMA (08:23)
[2020-08-23] MEDS: risperiDONE 2 MG TABLET PO ×2 (08:23→20:18)
[2020-08-23] MEDS: clonazePAM 0.5 MG TABLET PO ×2 (08:23→20:18)
--- NOTE | 2020-08-23 16:34 | HO.PSYCHPN ---
Subjective Subjective Date of Service: 09/21/20 Reason For Visit: Psychosis Subjective Notes: Legal Status (section 7 ) Interim History: Pt continues to present as hypervigilant, disorganized, poor attention and inability to maintain coherent conversation. She is a bit more clear, asking about her meds and wanting to know what meds she was taking. More organized in speech; still suspicious, racing thoughts. Medication Compliance: Yes Side effects from medications: No Attending Groups: No Review of Systems Review of Systems No changes Constitutional: No Weight loss, No Fever, No Chills ENT/Mouth: No Hearing loss, No Ear Pain, No Nasal Congestion, No Sinus Pain, No Hoarseness, No sore throat, No Rhinorrhea, No Swallowing Difficulty Eyes: No Eye Pain, No Swelling, No Redness, No Vision Changes Cardiovascular: No Chest Pain, No SOB, No Dyspnea on Exertion, No Palpitations Respiratory: No Cough, No Sputum, No Wheezing Gastrointestinal: No Nausea, No Vomiting, No Diarrhea, No Constipation, No abdominal Pain Genitourinary: Negative Musculoskeletal: Negative Skin: No Skin Lesions, No rash Neuro: No Weakness, No Dizziness, No Headache Psych:+psychosis and disorganized Heme/Lymph: No Bruising, No Bleeding. Endocrine: No Polyuria, No Polydipsia, No Temperature Intolerance Yes all other systems are reviewed and are negative Yes all other systems are reviewed and are negative and Unobtainable due to mental status Mental Status Exam Mental Status Exam Patient Appearance: Disheveled and Unkempt Patient Orientation: Place Level of Consciousness: Restless Patient Behavior: Suspicious, Fearful and Uncooperative Mood Description: Suspicious and Fearful Affect Description: Nervous and Apprehensive Patient Cognition Impaired: Yes Ability to Follow Directions: Poor Speech Pattern: Clear (improving), Difficulty Finding Words and Mumbled Memory Description: Episodic Impaired Thought Process: Racing Judgement: Poor Diagnostics Vital Signs (24Hr): Vital Signs - 24 hr 08/22/20 18:00 08/23/20 06:00 Temperature 97.9 F 98.6 F Pulse Rate 109 H 116 H Respiratory Rate 16 Blood Pressure 127/83 129/70 Pulse Oximetry 98 Body Mass Index 18.8 Labs Results: 08/12/20 14:06 08/12/20 14:05 Labs: Laboratory Results - last 48 hr 08/21/20 13:48 Lyme Screen IgG & IgM <0.90 Lyme Progressive Test TNP Imaging Radiology Impressions: ITS Impressions Pelvis Ultrasound 08/13/20 00:00 IMPRESSION: Normal positioning of the IUD. Medications Medications Current Medications Generic Name Dose Route Start Last Admin Trade Name Lupilloq PRN Reason Stop Dose Admin Acetaminophen 650 mg 08/13/20 19:38 08/23/20 16:01 Acetaminophen 325 Mg Tablet PO 650 mg Q6H PRN Administration Headache/Pain Mild Scale (1-3) Al Hydroxide/Mg Hydroxide 30 ml 08/13/20 19:38 Magnesium Hydrox/Alum Hydrox 30 Ml Oral.Susp PO Q6H PRN Heartburn/Nausea Benztropine Mesylate 0.5 mg 08/17/20 22:05 08/19/20 11:45 Benztropine Mesylate 0.5 Mg Tablet PO 0.5 mg TID PRN Administration Extrapyramidal Effects Clonazepam 0.5 mg 08/17/20 11:45 08/23/20 08:23 Clonazepam 0.5 Mg Tablet PO 0.5 mg BID VERONICA Administration Diphenhydramine HCl 50 mg 08/17/20 11:39 08/17/20 20:01 Diphenhydramine Hcl 25 Mg Tablet PO 50 mg Q6H PRN Administration Allergic Reaction Lorazepam 1 mg 08/14/20 14:41 08/23/20 06:37 Lorazepam 1 Mg Tablet PO 1 mg Q6H PRN Administration Anxiety Magnesium Hydroxide 30 ml 08/13/20 19:38 Milk Of Magnesia 30 Ml Oral.Susp PO DAILY PRN Constipation Nicotine 14 mg 08/13/20 19:40 08/23/20 08:23 Nicotine 14 Mg Patch.Td24 TRANSDERMA 14 mg DAILY VERONICA Administration Risperidone 0.5 mg 08/17/20 17:05 08/20/20 05:02 Risperidone 0.5 Mg Tablet PO 0.5 mg Q6H PRN Administration agitation Risperidone 2 mg 08/21/20 21:00 08/23/20 08:23 Risperidone 2 Mg Tablet PO 2 mg BID VERONICA Administration Trazodone HCl 50 mg 08/12/20 21:00 08/22/20 20:38 Trazodone Hcl 50 Mg Tablet PO 50 mg BEDTIME VERONICA Administration Trazodone HCl 50 mg 08/13/20 19:38 08/20/20 00:59 Trazodone Hcl 50 Mg Tablet PO 50 mg BEDTIME PRN Administration Insomnia Allergies Allergies Allergy/AdvReac Type Severity Reaction Status Date / Time No Known Allergies Allergy Unverified 04/02/20 17:31 Assessment & Plan Assessment & Plan (1) 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: Status: Acute Code(s): F15.922 - Other stimulant use, unspecified with intoxication with perceptual disturbance Assessment and Plan: Ms. Sheridan is a 29 year-old woman with no previous hx of psychosis who was initially brought to [facility] [place] ED on 08/07/2020 due to disorganized behavior, paranoid delusions, VH/AH. Pt had medical work up including head CT, utox (+ amphetamines/+cannabinoids), TSH, RPR, CBC/CMP, Urine analysis- all unremarkable. Pt was discharged from ED on 08/10/2020, apparently cleared from psychosis but without any medication antipsychotic which had been given while in ED. Pt was brought back by family on 08/13/20 as she continued to present with paranoid delusions, VH/AH. 1. d/c olanzapine ? rash versus amphetamine vasculitis like rash. 2. increase risperidone 2mg po BID 3. Schedule clonazepam 0.5mg po BID 4. File if pt gravely disable to sign CV, currently on Section 12. Greater than 50% of the session was spent on counseling and/or coordination of care Patient educated on: medication risk/benefits and therapeutic strategies Informed Consent: further education needed Reason for contiued inpatient stay Substantial Risk for: harm to self, inability to function and rapid decompensation
[2020-08-23 17:15] VITALS: BP 114/59; PULSE 91; TEMP 36.5
[2020-08-23 18:45] LABS: TSH reflex Free T4 0.77 uIU/mL (0.32-4.0)
[2020-08-23] MEDS: traZODone HCL 50 MG TABLET PO (20:18)
[2020-08-24 06:25] VITALS: BP 114/56; PULSE 95; RESP 16; TEMP 36.2; O2SAT 98
[2020-08-24] MEDS: Nicotine 14 MG PATCH.TD24 TRANSDERMA (09:08)
[2020-08-24] MEDS: clonazePAM 0.5 MG TABLET PO ×2 (09:08→22:48)
[2020-08-24] MEDS: LORazepam 1 MG TABLET PO ×2 (09:09→22:52)
[2020-08-24] MEDS: risperiDONE 2 MG TABLET PO ×2 (09:09→22:48)
[2020-08-24] MEDS: Acetaminophen 325 MG TABLET 650 MG PO (10:07)
[2020-08-24] MEDS: Milk of Magnesia 30 ML ORAL.SUSP PO (10:07)
--- NOTE | 2020-08-24 16:15 | P.PNPSI_ITS ---
Subjective Subjective Date of Service: 08/24/20 Reason For Visit: Psychosis Interim History: Pt much more organized and logical. She reports she thought others were talking about her and she felt paranoid. She reports feeling confused. She denies VH/AH. She is sleeping better. She denies SI/HI. She is taking medications as prescribed and states they are helping. She agreed to sign CV, which she understands what it means and agrees to continue treatment. Review of Systems Review of Systems No changes Constitutional: No Weight loss, No Fever, No Chills ENT/Mouth: No Hearing loss, No Ear Pain, No Nasal Congestion, No Sinus Pain, No Hoarseness, No sore throat, No Rhinorrhea, No Swallowing Difficulty Eyes: No Eye Pain, No Swelling, No Redness, No Vision Changes Cardiovascular: No Chest Pain, No SOB, No Dyspnea on Exertion, No Palpitations Respiratory: No Cough, No Sputum, No Wheezing Gastrointestinal: No Nausea, No Vomiting, No Diarrhea, No Constipation, No abdominal Pain Genitourinary: Negative Musculoskeletal: Negative Skin: No Skin Lesions, No rash Neuro: No Weakness, No Dizziness, No Headache Psych:+psychosis and disorganized Heme/Lymph: No Bruising, No Bleeding. Endocrine: No Polyuria, No Polydipsia, No Temperature Intolerance Yes all other systems are reviewed and are negative Yes all other systems are reviewed and are negative and Unobtainable due to mental status Mental Status Exam Mental Status Exam Patient Appearance: Disheveled and Unkempt Patient Orientation: Place Level of Consciousness: Restless Patient Behavior: Suspicious, Fearful and Uncooperative Mood Description: Suspicious and Fearful Affect Description: Nervous and Apprehensive Patient Cognition Impaired: Yes Ability to Follow Directions: Poor Speech Pattern: Clear (improving), Difficulty Finding Words and Mumbled Memory Description: Episodic Impaired Diagnostics Vital Signs (24Hr): Vital Signs - 24 hr 08/23/20 17:15 08/24/20 06:25 Temperature 97.7 F 97.2 F Pulse Rate 91 95 Respiratory Rate 16 Blood Pressure 114/59 L 114/56 L Pulse Oximetry 98 Body Mass Index 18.8 Labs Results: 08/12/20 14:06 08/12/20 14:05 Labs: Laboratory Results - last 48 hr 08/21/20 08/23/20 13:48 17:43 TSH 0.77 Lyme Screen IgG & IgM <0.90 Lyme Progressive Test TNP Imaging Radiology Impressions: ITS Impressions Pelvis Ultrasound 08/13/20 00:00 IMPRESSION: Normal positioning of the IUD. Medications Medications Current Medications Generic Name Dose Route Start Last Admin Trade Name Freq PRN Reason Stop Dose Admin Acetaminophen 650 mg 08/13/20 19:38 08/24/20 10:07 Acetaminophen 325 Mg Tablet PO 650 mg Q6H PRN Administration Headache/Pain Mild Scale (1-3) Al Hydroxide/Mg Hydroxide 30 ml 08/13/20 19:38 Magnesium Hydrox/Alum Hydrox 30 Ml Oral.Susp PO Q6H PRN Heartburn/Nausea Benztropine Mesylate 0.5 mg 08/17/20 22:05 08/19/20 11:45 Benztropine Mesylate 0.5 Mg Tablet PO 0.5 mg TID PRN Administration Extrapyramidal Effects Clonazepam 0.5 mg 08/17/20 11:45 08/24/20 09:08 Clonazepam 0.5 Mg Tablet PO 0.5 mg BID VERONICA Administration Diphenhydramine HCl 50 mg 08/17/20 11:39 08/17/20 20:01 Diphenhydramine Hcl 25 Mg Tablet PO 50 mg Q6H PRN Administration Allergic Reaction Lorazepam 1 mg 08/14/20 14:41 08/24/20 09:09 Lorazepam 1 Mg Tablet PO 1 mg Q6H PRN Administration Anxiety Magnesium Hydroxide 30 ml 08/13/20 19:38 08/24/20 10:07 Milk Of Magnesia 30 Ml Oral.Susp PO 30 ml DAILY PRN Administration Constipation Nicotine 14 mg 08/13/20 19:40 08/24/20 09:08 Nicotine 14 Mg Patch.Td24 TRANSDERMA 14 mg DAILY VERONICA Administration Risperidone 0.5 mg 08/17/20 17:05 08/20/20 05:02 Risperidone 0.5 Mg Tablet PO 0.5 mg Q6H PRN Administration agitation Risperidone 2 mg 08/21/20 21:00 08/24/20 09:09 Risperidone 2 Mg Tablet PO 2 mg BID VERONICA Administration Trazodone HCl 50 mg 08/12/20 21:00 08/23/20 20:18 Trazodone Hcl 50 Mg Tablet PO 50 mg BEDTIME VERONICA Administration Trazodone HCl 50 mg 08/13/20 19:38 08/20/20 00:59 Trazodone Hcl 50 Mg Tablet PO 50 mg BEDTIME PRN Administration Insomnia Allergies Allergies Allergy/AdvReac Type Severity Reaction Status Date / Time No Known Allergies Allergy Unverified 04/02/20 17:31 Assessment & Plan Assessment & Plan (1) 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: Status: Acute Code(s): F15.922 - Other stimulant use, unspecified with intoxication with perceptual disturbance Assessment and Plan: Ms. Sheridan is a 29 year-old woman with no previous hx of psychosis who was initially brought to [facility] [place] ED on 08/07/2020 due to disorganized behavior, paranoid delusions, VH/AH. Pt had medical work up including head CT, utox (+ amphetamines/+cannabinoids), TSH, RPR, CBC/CMP, Urine analysis- all unremarkable. Pt was discharged from ED on 08/10/2020, apparently cleared from ps ychosis but without any medication antipsychotic which had been given while in ED. Pt was brought back by family on 08/13/20 as she continued to present with paranoid delusions, VH/AH. 1. d/c olanzapine ? rash versus amphetamine vasculitis like rash. 2. increase risperidone 2mg po BID 3. Schedule clonazepam 0.5mg po BID 4. File if pt gravely disable to sign CV, currently on Section 12. Greater than 50% of the session was spent on counseling and/or coordination of care Reason for contiued inpatient stay Substantial Risk for: rapid decompensation
[2020-08-24 18:00] VITALS: BP 125/65; PULSE 108; TEMP 36.2
[2020-08-24] MEDS: traZODone HCL 50 MG TABLET PO (22:49)
[2020-08-25 05:45] VITALS: BP 122/78; PULSE 97; RESP 16; TEMP 36.6; O2SAT 98
[2020-08-25] MEDS: LORazepam 1 MG TABLET PO (08:50)
[2020-08-25] MEDS: clonazePAM 0.5 MG TABLET PO ×2 (08:51→20:30)
[2020-08-25] MEDS: risperiDONE 2 MG TABLET PO ×2 (08:51→20:30)
[2020-08-25] MEDS: Nicotine 14 MG PATCH.TD24 TRANSDERMA (08:51)
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
[2020-08-25 18:00] VITALS: BP 126/71; PULSE 101; TEMP 36.8
[2020-08-25 20:29] VITALS: BP 126/71; PULSE 101
[2020-08-25] MEDS: Prazosin HCL 1 MG CAPSULE PO (20:29)
[2020-08-25] MEDS: traZODone HCL 50 MG TABLET PO ×2 (20:30→23:06)
[2020-08-26 06:20] VITALS: BP 118/69; PULSE 103; RESP 16; TEMP 36.6; O2SAT 99
[2020-08-26] MEDS: risperiDONE 2 MG TABLET PO ×2 (09:19→21:32)
[2020-08-26] MEDS: Nicotine 14 MG PATCH.TD24 TRANSDERMA (09:19)
[2020-08-26] MEDS: Acetaminophen 325 MG TABLET 650 MG PO (09:19)
[2020-08-26] MEDS: LORazepam 1 MG TABLET PO (09:19)
[2020-08-26] MEDS: clonazePAM 0.5 MG TABLET PO ×2 (09:19→21:32)
[2020-08-26 16:36] VITALS: BP 119/74; PULSE 109; TEMP 36.9
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
[2020-08-26] MEDS: traZODone HCL 50 MG TABLET PO (21:32)
[2020-08-27 05:45] VITALS: BP 126/73; PULSE 106; TEMP 36.3; O2SAT 97
[2020-08-27] MEDS: clonazePAM 0.5 MG TABLET PO (09:01)
[2020-08-27] MEDS: risperiDONE 2 MG TABLET PO (09:01)
[2020-08-27] MEDS: Nicotine 14 MG PATCH.TD24 TRANSDERMA (09:01)
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
--- NOTE | 2020-08-27 12:51 | PC.NURSE ---
PT IS AWARE AND READY FOR DISCHARGE ON 08/27/2020 AT APPROXIMATELY 1430. PT REPORTS NO DESIRE TO HARM HERSELF OR OTHERS. PT IS AWARE OF PERSON, TIME, SITUATION, AND PLACE. PT IS TAKING MEDICATIONS WITHOUT HESITATION. SHE IS OPEN TO LEARNING ABOUT HER MEDICATIONS. PT IS WORKING APPROPRIATELY ON COPING SKILLS AND RELAXATION TECHNIQUES. PT IS AWARE AND READY FOR DISCHARGE. PT IS INDEPENDENTLY TAKING CARE OF ADLS. SHE SAYS SHE KNOWS THAT SHE IS NOT IN A DREAM NOW. SHE CAN DIFFERENTIATE REALITY FROM FICTION. PT DENIES AUDITORY OR VISUAL HALLUCINATIONS. PT IS CALM, COOPERATIVE, AND PLEASANT. PT STATED THAT SHE HAS SOME TOOTH PAIN BUT ONLY WHEN SHE EATS SOMETHING HARD/STICKY. PT HAS NO MEDICAL CONCERNS. PT HAS A STRONG FAMILY SUPPORT SYSTEM. SHE IS BEGINNING TO OPEN UP ABOUT PAST TRAUMAS AND IS WILLING TO CONTINUE THERAPY. PT IS MOTIVATED TO FEEL BETTER.
== END 2020-08-27 14:30 | disposition home or self-care (01) | DRG 776 ==
LOC: HO.ED 08-13 20:54 → HO.PM5 08-13 20:55
PROVIDERS: Clinical Nurse Specialist Psychiatric/Mental Health; Nurse Practitioner Primary Care; Admitting Provider Psychiatry & Neurology Psychiatry; Emergency Provider Emergency Medicine; Visit Provider Social Worker
DX: F15.94 Other stimulant use, unspecified with stimulant-induced mood disorder (principal); F15.921 Other stimulant use, unspecified with intoxication delirium; F17.210 Nicotine dependence, cigarettes, uncomplicated; Z86.16 Personal history of COVID-19; Z71.6 Tobacco abuse counseling; Z97.5 Presence of (intrauterine) contraceptive device; Z20.822 Contact with and (suspected) exposure to COVID-19; Z79.899 Other long term (current) drug therapy
CPT/HCPCS: 36415; 76856; 80053; 80307; 80320; 81001; 81025; 84443; 85025; 85379; 85610; 85730; 86431; 86618; 86780; 87491; 87591; 87635; 96372; 99222; 99232; 99282; 99285; J0515; J1200; J2060; Q0163

== ENCOUNTER → 2020-09-14 14:38 | Outpatient (BNVA) | payer BC, SELFPAY | PROVIDERS: PCP Internal Medicine; Visit Provider Advanced Practice Midwife ==

== ENCOUNTER 2020-09-15 13:22 | Outpatient (REF) | payer BC, SELFPAY ==
[2020-09-16 09:11] LABS: BV Int Neg Control Negative (Negative); BV Int Pos Control Positive (Positive)
[2020-09-16 20:37] LABS: C. trachomatis RNA TMA NOT DETECTED (NOT DETECTED); N. gonorrhoeae RNA TMA NOT DETECTED (NOT DETECTED)
[2020-09-18 00:47] LABS: HPV mRNA E6/E7 rflx Not Detected (Not Detected)
== END 2020-09-15 13:23 | disposition home or self-care (01) ==
LOC: HO.LAB 13:22
PROVIDERS: Visit Provider Advanced Practice Midwife
DX: Z01.419 Encounter for gynecological examination (general) (routine) without abnormal findings (principal); Z11.3 Encounter for screening for infections with a predominantly sexual mode of transmission; Z11.8 Encounter for screening for other infectious and parasitic diseases; Z11.51 Encounter for screening for human papillomavirus (HPV)
CPT/HCPCS: 36415; 87480; 87491; 87510; 87591; 87624; 87660; 88141; 88142

== ENCOUNTER → 2020-09-18 10:37 | Outpatient (BNVA) | payer BC, SELFPAY | PROVIDERS: PCP Internal Medicine; Visit Provider Surgery ==

== ENCOUNTER 2020-10-01 06:10 | Day surgery (SDC) | payer BC, SELFPAY ==
[2020-09-23 19:55] VITALS: BMI 22.3
--- NOTE | 2020-09-30 09:31 | HO.ANESPROP2 ---
Documented by User: Lori Anne 09/30/20 09:33 HPI - Anesthesia Eval Consult details Narrative: 29yo F for Excision of Epidermal Cyst, Posterior Neck PMFSH Active Problems Active Problems: All Active Problems (Updated 09/14/20 @ 16:09 by Rehana Brannon CNM) Well woman exam with routine gynecological exam (Acute) Cigarette smoker motivated to quit (Acute) Nodule of skin of neck (Acute) Remove/insert IUD (Acute) PTSD (post-traumatic stress disorder) (Acute) 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 (Acute) Acute psychosis (Acute) History of appendectomy (Acute) Past Medical History Medical History Acute psychosis 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 Cigarette smoker motivated to quit Nodule of skin of neck PTSD (post-traumatic stress disorder) Remove/insert IUD Family History Family History Mother Family history of cancer tonsil History of squamous cell carcinoma Maternal Grandfather History of prostate cancer Family/Other History of breast cancer, Onset Age: 60 Surgical History Surgical History History of appendectomy Social History Social History Household Members: Family Housing: Apartment Alcohol intake: unknown Smoking Status: Current every day smoker Tobacco Type: Cigarette Packs Per Day: 1 Cigarettes Per Day: 20.0 Years Smoked: 5 Smoked in Last 30 Days: Yes Patient Interested in Nicotine Replacement: No Patient Given Instructions on How to Stop Smoking: No Second Hand Smoke Exposure: Yes Use of substances other than those prescribed or required for medical reasons: No Substance Use Type: Marijuana Have you been hit, kicked, punched, or otherwise hurt by someone within the past year? If so, by whom?: No Advance Directives: No Advance Directives Information Provided: No Advance Directives on File: No service: No Sexual orientation: Straight/Heterosexual Meds Allergies Allergy/AdvReac Type Severity Reaction Status Date / Time olanzapine [From Zyprexa] AdvReac Rash Verified 10/01/20 06:32 Home Medications Medication Instructions Recorded Confirmed Last Taken Type levonorgestrel 20 mcg/24 hours (6 20 mcg INTRAUTERINE USEASDIRECTD 09/02/20 09/23/20 Unknown History yrs) 52 mg intrauterine device Exam Exam Date and Time: September 30, 2020 0931 Height,Weight and Vital Signs: Height 5 ft 4 in Weight 58.967 kg Pertinent Lab Results Pertinent Lab Results: Laboratory Tests 08/12/20 08/12/20 14:05 14:06 WBC 10.6 Hgb 13.3 Hct 38.7 Plt Count 344 Sodium 142 Potassium 3.7 Chloride 105 Carbon Dioxide 23 BUN 13 Creatinine 0.72 Assessment and Plan Assessment Anesthesia Assessment: Chart Reviewed Documented by User: Madeline Jim 10/01/20 07:50 PMFSH Past Medical History Medical History Acute psychosis 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 Cigarette smoker motivated to quit Nodule of skin of neck PTSD (post-traumatic stress disorder) Remove/insert IUD Family History Family History Mother Family history of cancer tonsil History of squamous cell carcinoma Maternal Grandfather History of prostate cancer Family/Other History of breast cancer, Onset Age: 60 Family history of problems with anesthesia: No Surgical History Surgical History History of appendectomy History of Problems with Anesthesia: No Social History Social History Household Members: Family Housing: Apartment Alcohol intake: unknown Smoking Status: Current every day smoker Tobacco Type: Cigarette Packs Per Day: 1 Cigarettes Per Day: 20.0 Years Smoked: 5 Smoked in Last 30 Days: Yes Patient Interested in Nicotine Replacement: No Patient Given Instructions on How to Stop Smoking: No Second Hand Smoke Exposure: Yes Use of substances other than those prescribed or required for medical reasons: No Substance Use Type: Marijuana Have you been hit, kicked, punched, or otherwise hurt by someone within the past year? If so, by whom?: No Advance Directives: No Advance Directives Information Provided: No Advance Directives on File: No service: No Sexual orientation: Straight/Heterosexual Meds Allergies Allergy/AdvReac Type Severity Reaction Status Date / Time olanzapine [From Zyprexa] AdvReac Rash Verified 10/01/20 06:32 Home Medications Medication Instructions Recorded Confirmed Last Taken Type levonorgestrel 20 mcg/24 hours (6 20 mcg INTRAUTERINE USEASDIRECTD 09/02/20 09/23/20 Unknown History yrs) 52 mg intrauterine device Exam Height,Weight and Vital Signs: Vital Signs Temp Pulse Resp BP Pulse Ox 10/01/20 06:22 97.9 F 95 18 117/79 97 Pertinent Lab Results Pertinent Lab Results: Lab Results 10/01/20 Range/Units 06:12 Urine Test NEGATIVE (NEGATIVE) Airway Mallampati Class: II TM Dist: >3cm Neck ROM: Full Loose/Missing/Broken Teeth: Yes (Broken back right) Heart: RRR Lungs: CTAB Assessment and Plan Assessment Anesthesia Assessment: Anesthesia Plan Discussed and Chart Reviewed Final Anesthetic Review NPO: Yes ASA Class: II Final Preanesthetic Review: No Changes in Pt Med Stat, Meds/Allgs Chart Reviewed, Consent Obtained/Reviewed and Anes Risks/Benef Reviewed Patient Risk: Intermediate Procedure Risk: Low Assessment/Block/Sedation in SS: Assess/Block/Sedation-SS Anesthetic Plan Anesthetic Plan: GA Disposition: Standard PACU
[2020-10-01 06:22] VITALS: BP 117/79; PULSE 95; RESP 18; TEMP 36.6; O2SAT 97
[2020-10-01 06:36] LABS: UPreg QC Valid YES; Urine Pregnancy NEGATIVE (NEGATIVE)
[2020-10-01] MEDS: Lactated Ringers 1,000 ML 100 ML IVCONT (06:48)
--- NOTE | 2020-10-01 07:15 | MHC.SHP ---
Pre-Procedural Eval Section A The patient is an INPATIENT: No Changes since office visit: Yes Patient answered all questions; No Cold of Flu in the past 2 weeks, No New Medical Problems and No Changes in Medication The History & Physical has been completed within 30 days and I have reviewed it.: Yes Section B Chief Complaint: Nodule of skin of neck Allergies: Allergies Allergy/AdvReac Type Severity Reaction Status Date / Time olanzapine [From Zyprexa] AdvReac Rash Verified 10/01/20 06:32 Plan Diagnosis/Plan: Unchanged I have reviewed the history and physical and performed a pertinent physical examination on my patient. No changes have occurred unless specified.
--- NOTE | 2020-10-01 08:14 | P.OP_ITS ---
Operative Note Operative Note Date of Service: 10/01/20 Narrative: Preoperative diagnosis: Epidermal inclusion cyst posterior right neck Postoperative diagnosis: Same Procedure: Excision of epidermal inclusion cyst right posterior neck Surgeon: Juan Geller MD Game Farm Supervisor: Apoorva Mendieta PA-C Anesthesia: General LMA Indications for procedure: 29-year-old female presenting with a persistent epidermal inclusion cyst which she is constantly feeling and has requested exc ision. Because of the patient's elevated anxiety decision was made to proceed under general anesthesia. Operative findings: 1 cm epidermal inclusion cyst posterior right neck Specimen: Epidermal inclusion cyst posterior right neck Estimated blood loss: 5 mL Complications: None Procedure details: Patient was brought to the OR and placed in a supine position. After administering general anesthesia she was placed in a left lateral decubitus position. The skin was prepped with ChloraPrep and draped in a sterile fashion. A surgical time-out was called and the consent confirmed. Patient received preoperative antibiotics and Venodyne boots were in place. Local anesthesia consisting of 0.25% Sensorcaine with epinephrine was then infiltrated in elliptical in fashion oriented longitudinally. Incision was then made with a 15 blade and carried out through subcutaneous tissue and around the cyst wall. The cyst was completely excised and sent to pathology. Adequate hemostasis was assured using electrocautery. Skin was then closed using interrupted 4-0 nylon sutures. Sterile dressings consisting of 2 x 2 gauze and Tegaderm were then applied. The patient tolerated the procedure well. Sponge, instrument, and needle counts reported as correct. The patient was transferred to PACU in stable condition.
[2020-10-01 08:18] VITALS: BP 112/62; PULSE 82; RESP 14; TEMP 36.4; O2SAT 98
--- NOTE | 2020-10-01 08:18 | P.BOP_ITS ---
Brief Operative Note Date of Service: 10/01/20 Pre-op diagnosis: epidermal inclusion cyst of posterior neck Post-op diagnosis: same Procedure: excision of epidermal inclusion cyst of posterior neck Surgeon: filomena pena md Anesthesia: GLMA Engineer Sergeant: Apoorva Mendieta Estimated blood loss (mL): 5 Pathology: other (epidermal inclusion cyst of posterior neck) Condition: stable Disposition: PACU
[2020-10-01 08:23] VITALS: BP 114/63; PULSE 74; RESP 16; O2SAT 98
[2020-10-01 08:28] VITALS: BP 104/63; PULSE 73; RESP 16; O2SAT 99
[2020-10-01 08:33] VITALS: BP 122/74; PULSE 80; RESP 18; O2SAT 99
[2020-10-01 08:48] VITALS: BP 119/74; PULSE 84; RESP 16; O2SAT 99
== END 2020-10-01 10:14 | disposition home or self-care (01) ==
PROVIDERS: Nurse Practitioner; Visit Provider Surgery
PROC: (CPT 11421; principal; 2020-10-01 07:30)
DX: L72.0 Epidermal cyst (principal); F17.210 Nicotine dependence, cigarettes, uncomplicated; F12.90 Cannabis use, unspecified, uncomplicated; Z79.899 Other long term (current) drug therapy; Z88.0 Allergy status to penicillin
CPT/HCPCS: 11421; 81025; 88304; J0690; J1100; J2250; J2405

== ENCOUNTER → 2020-10-09 11:07 | Outpatient (BNVA) | payer BC, SELFPAY | PROVIDERS: Visit Provider Surgery ==

== ENCOUNTER 2021-02-24 | Outpatient (REF) | payer BC, SELFPAY | END 2021-02-24 00:01 | disposition home or self-care (01) | LOC: HO.LNP | PROVIDERS: Visit Provider Internal Medicine | DX: J02.0 Streptococcal pharyngitis (principal); Z20.822 Contact with and (suspected) exposure to COVID-19 | CPT/HCPCS: U0003; U0005 ==

== ENCOUNTER 2021-06-17 21:21 | Emergency (ER) | payer BC, SELFPAY ==
[2021-06-17 21:23] VITALS: BP 155/65; PULSE 96; RESP 18; TEMP 36.6; O2SAT 96; BMI 25.7
--- NOTE | 2021-06-17 21:49 | ED.FEMALEGU ---
HPI - Female Genitourinary General Chief complaint: Urogenital-Female Stated complaint: tampon unable to remove Time Seen by Provider: 06/17/21 21:29 Source: patient Mode of arrival: ambulatory Limitations: no limitations History of Present Illness MD elicited complaint: other (tampon stuck since 7am) Pertinent past history: IUD Onset (ago): hour(s) (15) Location of symptoms: vaginal Severity: mild Vaginal discharge: none Vaginal bleeding: none Exacerbating factors: none Associated symptoms: denies other symptoms Treatment prior to arrival: none Related Data Home Medications Medication Instructions Recorded Confirmed levonorgestrel 20 mcg/24 hours (7 20 mcg INTRAUTERINE USEASDIRECTD 09/02/20 10/09/20 yrs) 52 mg intrauterine device (Mirena) clonidine HCl 0.1 mg tablet 0.1 mg PO BID 05/28/21 05/28/21 escitalopram oxalate 10 mg tablet 10 mg PO DAILY 05/28/21 hydroxyzine HCl 50 mg tablet 50 mg PO TID 05/28/21 Previous Rx's Medication Instructions Recorded trazodone 50 mg tablet 50 mg PO BEDTIME 30 Days #30 tab 08/27/20 nicotine 21 mg/24 hr daily 1 patch TRANSDERMAL DAILY #28 ea 05/28/21 transdermal patch Allergies Allergy/AdvReac Type Severity Reaction Status Date / Time olanzapine [From Zyprexa] AdvReac Rash Verified 05/28/21 16:44 Review of Systems Review of Systems: Constitutional : No Fever, No Chills ENT/Mouth : No sore throat, No Rhinorrhea Eyes: No Eye Pain, No Redness Cardiovascular : No Chest Pain, No SOB Respiratory : No Cough, No Sputum, No Wheezing Gastrointestinal : no Nausea, No Vomiting, No Diarrhea, no abdominal pain, Genitourinary : no irregular bleeding, No Dysuria, No Urinary Frequency, no pelvic pain Musculoskeletal : No Myalgias Skin : No rash Neuro : No Weakness, No Headache PMFSH Past Medical History Medical History Acute psychosis 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 Cigarette smoker motivated to quit Nodule of skin of neck PTSD (post-traumatic stress disorder) Remove/insert IUD Surgical History History of appendectomy Family History Family History Mother Family history of cancer tonsil History of squamous cell carcinoma Maternal Grandfather History of prostate cancer Family/Other History of breast cancer, Onset Age: 60 Social History Social History Household Members: Family Housing: Apartment Do you presently have visiting nurse or other home services: No Alcohol intake: unknown Patient Tobacco Use Status: Current everyday Tobacco user Tobacco use type: Cigarette Cigarette Packs Per Day: 1 Cigarettes Per Day: 20.0 Years Smoked: 5 e-Cigarette/Vaping Use: Never Used Second Hand Smoke Exposure: Yes Substance Use Type: Marijuana Advance Directives: No Advance Directives Information Provided: Yes service: No Current occupational status: employed Sexual orientation: Straight/Heterosexual Cognitive needs: No Hearing needs: No Vision needs: No Physical Exam Vital Signs: Vital Signs: Last Vital Signs Temp 98 F 06/17/21 21:23 Pulse 96 06/17/21 21:23 Resp 18 06/17/21 21:23 BP 155/65 H 06/17/21 21:23 Pulse Ox 96 06/17/21 21:23 BMI result Body Mass Index 25.7 Appearance: Alert. Oriented X3. No acute distress. Eyes: Pupils equal, round and reactive to light. ENT: Pharynx normal. Neck: Normal inspection. Neck supple. CVS: Normal heart rate and rhythm. Respiratory: No respiratory distress. Abdomen: Soft and nontender. : one retained tampon noted Skin: Skin warm and dry. Normal skin color. Extremities: No lower extremity edema. Neuro: Oriented X 3. No motor deficit. No sensory deficit. MDM - Female Genitourinary MDM Narrative Medical decision making narrative: 30 yo female retained tampon asymptomatic no other symptoms in since 7am - given precautions to return once removed Procedures Foreign Body Removal Time Out Performed: yes Site: vagina Description of foreign body: other (tampon) Sedation/Analgesia: none Technique: removal with forceps Confirmed by:: direct visualization Complications: none Discharge Plan Discharge Clinical Impression: Retained tampon Qualifiers: Encounter type: initial encounter Qualified Code(s): T19.2XXA - Foreign body in vulva and vagina, initial encounter Patient Disposition: Home, Self-Care Instructions: Vaginal Foreign Body (ED) Additional Instructions: return to ED for any worsening symptoms or concerns monitor for discharge, pain, fevers Prescriptions: No Action trazodone 50 mg Tablet 50 mg PO BEDTIME 30 Days Qty: 30 RF: 0 Mirena 20 mcg/24 hours (6 yrs) 52 mg intrauterine device 20 mcg intrauterine USEASDIRECTD RF: 0 hydroxyzine HCl 50 mg tablet 50 mg PO TID RF: 0 escitalopram oxalate 10 mg tablet 10 mg PO DAILY RF: 0 clonidine HCl 0.1 mg tablet 0.1 mg PO BID RF: 0 nicotine 21 mg/24 hr patch 24 hour 1 patch transdermal DAILY Qty: 28 RF: 1 Stand Alone Forms: Work/School Release
--- NOTE | 2021-06-17 22:01 | PC.NURSE ---
Speculum exam by MD Armstrong witnessed by this RN, tampon removed successfully, pt tolerated w/o incident
== END 2021-06-17 22:17 | disposition home or self-care (01) ==
PROVIDERS: Emergency Provider Emergency Medicine; PCP Internal Medicine
DX: T19.2XXA Foreign body in vulva and vagina, initial encounter (principal); X58.XXXA Exposure to other specified factors, initial encounter
CPT/HCPCS: 99283; 99284

== ENCOUNTER 2022-08-05 12:52 | Outpatient (AMB) | payer BC, SELFPAY ==
--- OUTSIDE RECORDS SUMMARY | 2022-08-05 12:53 | XMS_ITS | Continuity of Care Document ---
:1990 Author Organization [facility] [employer] [facility] p Address [address] [place] [address], [address] [place] [id number]- Care Team Providers Name Role Phone Pamela BARRERA, Mecry Peña Primary Care Physician [id number] Date[facility]s): 08/06/21 - 09/05/21 [facility] [employer] [address] [address] Attending Physician: Susy Cuevas Admitting Physician: Susy Cuevas Referring Physician: Susy Cuevas Allergies, Adverse Reactions, Alerts No Known Allergies Medications cloNIDine 0.1 mg oral tablet 0.1 mg, 1, tablet, By Mouth, 2 times a day, Refills 0, Maintenance, 07/22/21 16:36:00 EST, Partial fill upon patient request if the prescription is for a schedule II opioid drug. Start Date: 07/22/21 Status: OrderedEscitalopram By Mouth, Daily, 0 Refills, Maintenance, 07/22/21 16:37:00 EST, Partial fill upon patient request ifthe prescription is for a schedule II opioid drug. Start Date: 07/22/21 Status: OrderedHydrOXYzine 0 Refills, Maintenance, 07/22/21 16:36:00 EST, Partial fill upon patient request if the prescriptionis for a schedule II opioid drug. Start Date: 07/22/21 Status: OrderedLiletta 52 mg intrauterine device 1 each = 52 mg, Once, 0 Refills, Maintenance, 07/22/21 16:34:00 EST, Partial fill upon patient request if the prescription is for a schedule II opioid drug. Start Date: 07/22/21 Status: OrderedtraZODone 50 mg oral tablet 50 mg, 1, tablet, By Mouth, 2 times a day, Refills 0, Maintenance, 07/22/21 16:37:00 EST, Partial fill upon patient request if the prescription is for a schedule II opioid drug. Start Date: 07/22/21 Status: Ordered Problem List Condition Effective Dates Status Health Status Informant Obese class I(Confirmed) Active Social History Social History Type Response Smoking Status Never smoker entered on: 08/15/13 Sex
--- NOTE | 2022-08-05 12:54 | A.OFFPC_ITS ---
Vital Signs 08/05/22 12:57 Height 5 ft 5.5 in Weight 159 lb 2 oz BMI 26.0 BP 92/68 Blood Pressure Location Rt brachial Position Sitting Pulse 90 Pulse Source Pulse Oximeter Pulse Oximetry (%) 97 Oxygen Delivery Method Room Air Intake Visit Reasons: Annual PE Intake Note: Pt is here for her annual phyiscal exam. 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 Cigarette smoker motivated to quit Encounter for smoking cessation counseling Nodule of skin of neck PTSD (post-traumatic stress disorder) Remove/insert IUD Surgical History (Updated 08/05/22 @ 13:45 by Mercy Santiago MD) History of appendectomy Family History Mother Family history of cancer tonsil History of squamous cell carcinoma Maternal Grandfather History of prostate cancer Family/Other History of breast cancer, Onset Age: 60 Social History Household Members: Family Housing: Apartment Do you presently have visiting nurse or other home services: No Alcohol intake: unknown Patient Tobacco Use Status: Current everyday Tobacco user Years Smoked: 5 e-Cigarette/Vaping Use: Never Used Second Hand Smoke Exposure: Yes Substance Use Type: Marijuana service: No Current occupational status: employed Sexual orientation: Straight/Heterosexual Cognitive needs: No Hearing needs: No Vision needs: Yes Questionnaire PHQ-9 Over the last 2 weeks, how often have you been bothered by any of the following problems? 1. Little interest or pleasure in doing things: several days 2. Feeling down, depressed, or hopeless: several days 3. Trouble falling or staying asleep, or sleeping too much: several days 4. Feeling tired or having little energy: nearly every day 5. Poor appetite or overeating: nearly every day 6. Feeling bad about yourself - or that you are a failure or have let yourself or your family down: several days 7. Trouble concentrating on things, such as reading the newspaper or watching television: nearly every day 8. Moving or speaking so slowly that other people could have noticed. Or the opposite - being so fidgety or restless that you have been moving around a lot more than usual: nearly every day 9. Thoughts that you would be better off or of hurting yourself in some way: not at all Total score: 16 Source: Developed by Drs. Obdulio Cortes, Jeannette Monson, Jigar Harden and colleagues, with an educational bianca from [employer]. Thrive Questionnaire Declines Thrive assessment: No Date Thrive assessed: 08/05/22 I am a: Patient What is your living situation today?: I have a steady place to live Within the past 12 months, did the food you bought not last and you didn't have the money to get more?: Sometimes True Within the past 12 months, did you worry whether your food would run out before you got money to buy more?: Never true Do you have trouble paying for medicines?: No Do you have trouble getting transportation to medical appointments?: No Do you have trouble paying your heating and electricity bill?: No Do you have trouble taking care of your child, family member or friend?: No Do you have trouble with day-to-day activities such as bathing, preparing meals, shopping, managing finances, etc.?: Yes Are you currently unemployed and looking for a job?: No Are you interested in more education?: No AUDIT C Alcohol Use Questionnaire (AUDIT-C) 1. How often do you have a drink containing alcohol?: Monthly or less 2. How many drinks containing alcohol do you have on a typical day when you are drinking?: 1 or 2 3. How often do you have six or more drinks on one occasion?: Never Total Score: 1 BINA-7 AMB Questionnaire BINA-7 Date BINA - 7 assessed: 08/05/22 Feeling nervous, anxious, or on edge: 1 = Several days Not being able to stop or control worryin = Not at all Worrying too much about different things: 0 = Not at all Trouble relaxin = Several days Being so restless that it is hard to sit still: 3 = Nearly every day Becoming easily annoyed or irritable: 0 = Not at all Feeling afraid as if something awful might happen: 1 = Several days Total BINA-7 score (0-4 normal; 5-9 mild; 10-14 moderate; 15-21 severe): 6 Source: Developed by Drs. Obdulio Cortes, Jeannette Monson, Jigar Harden and colleagues, with an educational bianca from [employer]. Physical exam (Primary Care) Vital Signs: Last Vital Signs Pulse 90 08/05/22 12:57 BP 92/68 08/05/22 12:57 Pulse Ox 97 08/05/22 12:57 Oxygen Delivery Method Room Air 08/05/22 12:57 BMI result Body Mass Index 26.0 Tobacco/Smoking Status: Tobacco use Status Tobacco use date assessed 08/05/22 08/05/22 13:00 Patient Tobacco Use Status Current everyday Tobacco 08/05/22 13:00 Tobacco use type 12/07/21 13:32 e-Cigarette/Vaping Use Never Used 08/05/22 12:55 PHQ-9: PHQ-9 Score PHQ-9: Total score 16 08/05/22 13:45 Thrive Assessment: Date of Thrive Assessment Date Thrive assessed 08/05/22 08/05/22 13:12 Immunizations Boostrix Tdap Performing Provider: Mercy Santiago MD Administered by: Marielena Escudero RN on 08/05/22 13:46 Dose Route Admin Location Lot Number Expiration Date NDC [employer] 0.5 mL IM Left Deltoid [id number] 06/15/24 [id number] [employer] VIS Given Date VIS Provided VIS Publication Date 08/05/22 Single Vaccine 21 Eligibility Eligibility Date Funding Source Not [facility] Eligible 08/05/22 Private Assessment and Plan Assessment & Plan (1) Annual visit for general adult medical examination with abnormal findings: Code(s): Z00.01 - Encounter for general adult medical examination with abnormal findings (2) PTSD (post-traumatic stress disorder): Code(s): F43.10 - Post-traumatic stress disorder, unspecified Orders: Orders Alanine Aminotransferase Today Z00.01 - Encounter for general adult medical examination with abnormal findings Aspartate Amino Transferase Today Z00.01 - Encounter for general adult medical examination with abnormal findings Glucose Fasting Today Z00.01 - Encounter for general adult medical examination with abnormal findings Lipid Panel Today Z00.01 - Encounter for general adult medical examination with abnormal findings Vitamin D 25-OH Total Today Z00.01 - Encounter for general adult medical examination with abnormal findings Complete Blood Count Auto Diff Today Z00.01 - Encounter for general adult medical examination with abnormal findings TDaP Immunization Today Z23 - Encounter for immunization Coding Level of Care Code Est Pt Prev Care [id number]([id number]) Diagnoses Annual visit for general adult medical examination with abnormal findings Z00.01 PTSD (post-traumatic stress disorder) F43.10
--- OUTSIDE RECORDS SUMMARY | 2022-08-05 12:54 | XMS_ITS | Continuity of Care Document ---
:1990 Author Organization [facility] [employer] [facility] p Address [address] [place] [address], [address] [place] [phone]- Care Team Providers Name Role Phone Pamela BARRERA, Mercy Peña Primary Care Physician Encounter [facility] [id number] Date(s): 07/22/21 - 09/05/21 [facility] [employer] [address] [address] Attending Physician: Not on Staff, Attending MD Referring Physician: Jw Jaimes MD Allergies, Adverse Reactions, Alerts No Known Allergies [...]
--- OUTSIDE RECORDS SUMMARY | 2022-08-05 12:54 | XMS_ITS | Continuity of Care Document ---
:1990 Author Organization [facility] [employer] [facility] p Address [address] [place] [address], [address] [place] [phone]- Care Team Providers Name Role Phone Pamela BARRERA, Mercy Peña Primary Care Physician Encounter [facility] [id number] Date(s): 07/22/21 - 07/29/21 [facility] [employer] [address] [address] Attending Physician: Jw Jaimes MD Referring Physician: Mercy Santiago MD Allergies, Adverse Reactions, Alerts No Known [...] Health Status Informant Obese class I(Confirmed) Active Vital Signs Most recent to oldest [Reference Range]: 1 Height 162.40 cm (07/22/21 4:32 PM) Weight 80.3 kg (07/22/21 4:32 PM) Body Mass Index [18.5-24.99] 30.45 *>HHI* (07/22/21 4:32 PM) Blood Pressure [90-138/55-84 mm Hg] 108/63 mm Hg (07/22/21 4:32 PM) Blood pressure sites Arm, right (07/22/21 4:32 PM) Weight Obtained Via Standing scale (07/22/21 4:32 PM) Social History Social History Type Response Smoking Status Never smoker entered on: 08/15/13 Sex
[2022-08-05 12:57] VITALS: BP 92/68; PULSE 90; O2SAT 97; BMI 26.0
== END 2022-08-05 13:46 | disposition home or self-care (01) ==
LOC: HO.HMGC 12:52
PROVIDERS: PCP Internal Medicine; Visit Provider Internal Medicine
DX: Z00.01 Encounter for general adult medical examination with abnormal findings (principal); F43.10 Post-traumatic stress disorder, unspecified
CPT/HCPCS: 99499

== ENCOUNTER 2022-08-05 13:46 | Outpatient (REF) | payer BC, SELFPAY ==
[2022-08-05 16:32] LABS: MANUAL DIFF FLAG NO
[2022-08-05 16:37] LABS: Basophils Absolute Auto 0.1 X10*3/uL (0.0-0.2); Basophils Percent Auto 0.6 % (0-2); Eosinophils Absolute Auto 0.1 X10*3/uL (0.0-0.4); Eosinophils Percent Auto 1.1 % (0-4); Hematocrit 39.9 % (37.0-47.0); Hemoglobin 13.8 g/dl (12.0-16.0); Imm Gran Abs Auto 0.03 X10*3/uL (0.00-0.03); Imm Gran Pct Auto 0.4 % (0.0-0.4); Lymphocytes Absolute Auto 2.7 X10*3/uL (1.2-4.9); Lymphocytes Percent Auto 33.5 % (20-40); Mean Corpuscular HGB Conc 34.6 g/dl (31.0-35.0); Mean Corpuscular Volume 92.6 fL (80.0-98.0); Mean Platelet Volume 9.8 fL (9.4-12.3); Monocytes Absolute Auto 0.5 X10*3/uL (0.1-1.2); Monocytes Percent Auto 6.2 % (2-11); Neutrophils Absolute Auto 4.6 x10*3/uL (2.0-8.3); Neutrophils Percent Auto 58.2 % (45-73); Platelet Count 308 X10*3/uL (160-400); Red Blood Count 4.31 X10*6/uL (4.20-5.50)
[2022-08-05 16:52] LABS: Alanine Aminotransferase 14 U/L (0-31); Aspartate Amino Transferase 14 U/L (5-31); Cholesterol 182 mg/dL; Glucose Fasting 96 mg/dL (60-99); HDL Cholesterol 39 mg/dL; LDL Cholesterol Calculated 127 mg/dl; Triglycerides 82 mg/dL
[2022-08-05 17:07] LABS: Vitamin D 25-OH Total 31.8 ng/mL (>30)
== END 2022-08-05 13:47 | disposition home or self-care (01) ==
LOC: HO.HMGCLDS 13:46
PROVIDERS: PCP Internal Medicine; Visit Provider Internal Medicine
DX: Z00.01 Encounter for general adult medical examination with abnormal findings (principal)
CPT/HCPCS: 36415; 80061; 82306; 82947; 84450; 84460; 85025

== ENCOUNTER 2022-08-18 13:39 | Outpatient (REF) | payer BC, SELFPAY ==
--- NOTE | ~2022-08-18 | XR_ITS ---
EXAMINATION: XR KNEE, LEFT CLINICAL INFORMATION: Left knee pain COMPARISON: None TECHNIQUE: Four views of the left knee. FINDINGS: Bones and soft tissues are normal. No fracture or joint effusion. Alignment is anatomic. Joint spaces are well maintained. No abnormal soft tissue calcification. XR/XR knee LT 4V IMPRESSION: Normal left knee.
== END 2022-08-18 13:40 | disposition home or self-care (01) ==
LOC: HO.HMGCX 13:39
PROVIDERS: PCP Internal Medicine; Visit Provider Internal Medicine
DX: M25.562 Pain in left knee (principal)
CPT/HCPCS: 73564

== ENCOUNTER 2022-10-08 12:18 | Emergency (ER) | payer BC, SELFPAY ==
--- NOTE | 2022-10-08 12:41 | ED.GENADULT ---
HPI - General Adult General Chief complaint: General Medical <LAUREN Sauer - Last Filed: 10/08/22 12:45> Stated complaint: dehydrated <LAUREN Sauer - Last Filed: 10/08/22 12:45> Time Seen by Provider: 10/08/22 17:25 <LAUREN Sauer - Last Filed: 10/08/22 12:45> Source: patient <LAUREN Reyna - Last Filed: 10/08/22 20:03> Mode of arrival: ambulatory <LAUREN Reyna - Last Filed: 10/08/22 20:03> Limitations: no limitations <LAUREN Reyna Last Filed: 10/08/22 20:03> History of Present Illness HPI narrative: This is a 31-year-old female medical history significant for PTSD, daily cigarette smoker presenting to the emergency department with complaints that she may be dehydrated. Patient tells me she has been having watery diarrhea for the past 3 days, reports it is brown completely liquid at times other times soft and not foul smelling. Denies associated abdominal pain or blood in stool. Denies recent antibiotic use and recent changes in diet. Denies sick contacts. She does report she reason we started taking benztropine a medication for hyperhidrosis, this medication was started about 3 months ago and she is not sure if this is contributing to her symptoms. Tells me that she has also been feeling lightheaded sometimes when she changes positions. She also reports associated fatigue and malaise. Denies fevers, chills, chest pain, shortness of breath, nausea, vomiting, abdominal pain, headache, vision changes, dizziness. <LAUREN Reyna - Last Filed: 10/08/22 20:03> Related Data Home medications: Home Medications Medication Instructions Recorded Confirmed clonidine HCl 0.1 mg tablet 0.1 mg PO BID anxiety 05/28/21 07/08/21 escitalopram oxalate 10 mg tablet 10 mg PO DAILY 05/28/21 07/08/21 hydroxyzine HCl 50 mg tablet 50 mg PO TID 05/28/21 07/08/21 levonorgestrel 20.4 mcg/24 hrs (8 intrauterine 01/21/22 01/21/22 yrs) 52 mg intrauterine device (Liletta) benztropine 1 mg tablet 0.5 mg PO BID PRN 08/05/22 Previous Rx's Medication Instructions Recorded trazodone 50 mg tablet 50 mg PO BEDTIME 30 days #30 tabs 08/27/20 diclofenac sodium 1 % topical gel 4 g topical QID PRN joint pain 08/18/22 (Arthritis Pain (diclofenac)) #100 grams loperamide 2 mg capsule 2 mg PO Q6H PRN loose stool #30 10/08/22 (Anti-Diarrheal (loperamide)) caps <LAUREN Sauer - Last Filed: 10/08/22 12:45> Allergies/adverse reactions: Allergies Allergy/AdvReac Type Severity Reaction Status Date / Time olanzapine [From Zyprexa] AdvReac Rash Verified 08/18/22 13:33 <LAUREN Sauer Last Filed: 10/08/22 12:45> Review of Systems Review of Systems: Constitutional : No Weight loss, No Fever, No Chills, + Fatigue, + Malaise ENT/Mouth : No sore throat, No Rhinorrhea Eyes: No Eye Pain, No Swelling, No Redness Cardiovascular : No Chest Pain, No SOB, No Dyspnea on Exertion, No Orthopnea, No Edema, No Palpitations Respiratory : No Cough, No Sputum, No Wheezing Gastrointestinal : No Nausea, No Vomiting, + Diarrhea, No Constipation, No abdominal Pain, No Hematochezia, No Melena Genitourinary : No Dysuria, No Urinary Frequency, No Hematuria, Musculoskeletal : No joint pain, No Myalgias, No Joint Swelling Skin : No Skin Lesions, No rash Neuro : No Weakness, No Numbness, No Dizziness, No Headache Psych : No Anxiety/Panic, No Depression All other systems reviewed and are negative <LAUREN Reyna Last Filed: 10/08/22 20:03> Yes all other systems are reviewed and are negative <LAUREN Reyna Last Filed: 10/08/22 20:03> [facility] Past Medical History Attestation statement: The following information was validated with the patient. 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 Cigarette smoker motivated to quit Encounter for smoking cessation counseling Nodule of skin of neck Pain, joint, knee, left PTSD (post-traumatic stress disorder) Remove/insert IUD <LAUREN Sauer - Last Filed: 10/08/22 12:45> Surgical History: Surgical History History of appendectomy <LAUREN Sauer - Last Filed: 10/08/22 12:45> Family History Family History: Family History Mother Family history of cancer tonsil History of squamous cell carcinoma Maternal Grandfather History of prostate cancer Family/Other History of breast cancer, Onset Age: 61 <LAUREN Sauer - Last Filed: 10/08/22 12:45> Social History Social History: Social History Household Members: Family Housing: Apartment Do you presently have visiting nurse or other home services: No Alcohol intake: never Patient Tobacco Use Status: Current everyday Tobacco user Years Smoked: 5 Smoked in Last 30 Days: Yes e-Cigarette/Vaping Use: Never Used Second Hand Smoke Exposure: Yes Use of substances other than those prescribed or required for medical reasons: Yes Substance Use Type: Marijuana Advance Directives: No Advance Directives Information Provided: No Patient : No service: No Current occupational status: employed Sexual orientation: Straight/Heterosexual Cognitive needs: No Hearing needs: No Vision needs: Yes <LAUREN Sauer - Last Filed: 10/08/22 12:45> Physical Exam ED Vital Signs: Vital Signs - 24 hr 10/08/22 12:43 10/08/22 17:19 10/08/22 19:38 Temperature 97.9 F 98.6 F Pulse Rate 88 56 49 L Respiratory Rate 18 16 Blood Pressure 134/69 112/53 L 98/45 L Pulse Oximetry 98 97 Oxygen Delivery Method Room Air Room Air 03/25/23 19:39 10/08/22 19:41 Temperature Pulse Rate 50 72 Respiratory Rate Blood Pressure 102/65 109/65 Pulse Oximetry Oxygen Delivery Method BMI result Body Mass Index 0.1 <LAUREN Sauer - Last Filed: 10/08/22 12:45> Vital Signs - 24 hr 10/08/22 12:43 10/08/22 17:19 10/08/22 19:38 Temperature 97.9 F 98.6 F Pulse Rate 88 56 49 L Respiratory Rate 18 16 Blood Pressure 134/69 112/53 L 98/45 L Pulse Oximetry 98 97 Oxygen Delivery Method Room Air Room Air 10/08/22 19:39 10/08/22 19:41 Temperature Pulse Rate 50 72 Respiratory Rate Blood Pressure 102/65 109/65 Pulse Oximetry Oxygen Delivery Method BMI result Body Mass Index 0.1 vss <LAUREN Reyna - Last Filed: 10/08/22 20:03> Appearance: Alert.? Oriented X3.? No acute distress.? Head: Normocephalic, atraumatic, no step-offs or deformities Eyes: Pupils equal, round and reactive to light.? Neck: Normal inspection.? Neck supple.? CVS: Normal heart rate and rhythm.? Pulses normal.? Respiratory: No respiratory distress.? Breath sounds normal.? Abdomen: Soft and nontender.? Normoactive bowel sounds throughout Skin: Skin warm and dry.? Normal skin color.? Normal skin turgor.? Extremities: No lower extremity edema.? No calf ttp. 5/5 strength to bilateral upper and lower extremities Neuro: Oriented X 3.? No motor deficit.? No sensory deficit. CN 2-12 intact . Normal [id number], [id number], steady tandem gait with normal coordination. <LAUREN Reyna - Last Filed: 10/08/22 20:03> Course Course Course Narrative: RME--31yo F w/PMHx PTSD, c/o feeling dehydrated and nonbloody diarrhea x3 days. Admits started new medication, Benztropine, 3 mos ago, and believes may be causing sx. Denies decreased PO intake. Denies fever, chills, abd pain, N/V Labs, UA, preg ordered <LAUREN Sauer - Last Filed: 10/08/22 12:45> Reevaluation(s) Reevaluation #1: CBC within normal limits. Chemistry with no acute electrolyte abnormalities requiring intervention. No clinical signs of dehydration. COVID and influenza pending as well as urine and urine . <LAUREN Reyna - Last Filed: 10/08/22 20:03> Time: 17:49 <LAUREN Reyna - Last Filed: 10/08/22 20:03> Reevaluation #2: UA and urine negative. COVID and influenza negative. Orthostatic vital signs unremarkable. Patient states she is feeling better after fluids. We she is well appearing vital signs are stable. At complaining of headache, nausea, vomiting, abdominal pain, dizziness. No episodes of diarrhea while in the department. This is likely viral in nature. Again no abdominal pain no need for abdominal imaging. Educated patient on diagnosis and treatment plan, answered all question, patient verbalizes understanding. At this time patient will be discharged home, advised to return with new or worsening symptoms. Educated on worrisome signs and symptoms and when to return. At this time I feel comfortable discharge home. <LAUREN Reyna - Last Filed: 10/08/22 20:03> Time: 20:03 <LAUREN Reyna - Last Filed: 10/08/22 20:03> Medications Administered Discontinued Medications Generic Name Dose Route Start Last Admin Trade Name Freq PRN Reason Stop Dose Admin Sodium Chloride 1,000 mls @ 999 mls/hr 10/08/22 18:45 10/08/22 19:27 Ns IV 10/08/22 19:45 999 mls/hr .Q1H1M VERONICA Administration Loperamide HCl 2 mg 10/08/22 17:42 10/08/22 17:48 Loperamide Hcl 2 Mg Capsule PO 10/08/22 17:43 2 mg ONCE ONE Administration <LAUREN Sauer - Last Filed: 10/08/22 12:45> Medications Administered Discontinued Medications Generic Name Dose Route Start Last Admin Trade Name Freq PRN Reason Stop Dose Admin Sodium Chloride 1,000 mls @ 999 mls/hr 10/08/22 18:45 10/08/22 19:27 Ns IV 03/25/23 19:45 999 mls/hr .Q1H1M VERONICA Administration Loperamide HCl 2 mg 10/08/22 17:42 10/08/22 17:48 Loperamide Hcl 2 Mg Capsule PO 10/08/22 17:43 2 mg ONCE ONE Administration <LAUREN Reyna - Last Filed: 10/08/22 20:03> Medical Decision Making Medical Decision Making [facility] Narrative: 1741 31 year old female presents feeling dehydrated reporting diarrhea X 3 days PE benign . Neuro nonfocal. Cerebellar intact. Likely viral. Unlikley related to benztropine as this medication usually causes constipation. No signs of acute abdomen, c diff, bacterial diarrhea, colitis or diverticulitis. No rectal bleeding unlikely lower GI bleed. Will rule out orthostatic hypotension/orthostatic dizziness. No signs of stroke, posterior stroke. Plan- labs, urine. Will give Imodium for diarrhea <LAUREN Reyna Last Filed: 10/08/22 20:03> Differential Diagnosis Differential Diagnoses: The differential diagnosis associated with the presentation includes <LAUREN Reyna - Last Filed: 10/08/22 20:03> Likely viral. Unlikley related to benztropine as this medication usually causes constipation. No signs of acute abdomen, c diff, bacterial diarrhea, colitis or diverticulitis. No rectal bleeding unlikely lower GI bleed. Will rule out orthostatic hypotension/orthostatic dizziness. No signs of stroke, posterior stroke. <LAUREN Reyna - Last Filed: 10/08/22 20:03> Admission/Observation Consideration of admission/observation: Escalation of care including admission/observation considered <LAUREN Reyna - Last Filed: 10/08/22 20:03> Not indicated <LAUREN Reyna Last Filed: 10/08/22 20:03> Lab Data [facility] Lab Attestation statement: I reviewed the patient's lab results. <LAUREN Reyna - Last Filed: 10/08/22 20:03> Result Diagrams: 10/08/22 12:51 10/08/22 12:51 <LAUREN Sauer - Last Filed: 10/08/22 12:45> Labs: Lab Results 10/08/22 10/08/22 10/08/22 Range/Units 12:51 12:51 17:52 WBC 7.8 (4.8-10.8) X10*3/uL RBC 4.41 (4.20-5.50) X10*6/uL Hgb 13.8 (12.0-16.0) g/dl Hct 40.3 (37.0-47.0) % MCV 91.4 (80.0-98.0) fL MCH 31.3 (27.0-33.0) pg MCHC 34.2 (31.0-35.0) g/dl RDW 12.5 (11.0-16.0) % Plt Count 294 (160-400) X10*3/uL MPV 9.5 (9.4-12.3) fL Immature Gran % (Auto) 0.1 (0.0-0.4) % Neut % (Auto) 52.1 (45-73) % Lymph % (Auto) 39.0 (20-40) % Sumner % (Auto) 7.0 (2-11) % Eos % (Auto) 1.3 (0-4) % Baso % (Auto) 0.5 (0-2) % Lymph # (Auto) 3.1 (1.2-4.9) X10*3/uL Sumner # (Auto) 0.6 (0.1-1.2) X10*3/uL Eos # (Auto) 0.1 (0.0-0.4) X10*3/uL Baso # (Auto) 0.0 (0.0-0.2) X10*3/uL Abs Immat Gran (auto) 0.01 (0.00-0.03) X10*3/uL Absolute Neuts (auto) 4.1 (2.0-8.3) x10*3/uL Absolute Nucleated RBC 0.000 (0.0-0.012) X10*3/uL Nucleated RBC % (auto) 0.0 (0.0-0.2) /100WBC Sodium 138 (135-145) mmol/L Potassium 4.3 (3.3-5.1) mmol/L Chloride 107 (96-108) mmol/L Carbon Dioxide 22 (22-29) mmol/L Anion Gap 13 (12-20) BUN 9 (9-16) mg/dL Creatinine 0.72 (0.5-1.4) mg/dL Estim Creat Clear Calc 124.3 Estimated GFR > 60 Random Glucose 88 (60-115) mg/dL Calcium 9.4 (8.4-10.2) mg/dL Magnesium 2.1 (1.6-2.6) mg/dL Total Bilirubin 0.5 (0.0-1.0) mg/dL Direct Bilirubin < 0.2 (0.0-0.5) mg/dL AST 21 (5-31) U/L ALT 19 (0-31) U/L Alkaline Phosphatase 68 (39-117) U/L Total Protein 6.7 (6.5-8.0) g/dL Albumin 4.4 (3.5-5.0) g/dL Lipase 31 (8-78) U/L Urine Color Yellow Urine Appearance Clear Urine pH 5.5 (5.0-9.0) Ur Specific [place] 1.015 (1.005-1.025) Urine Protein Negative (Neg-Trace) mg/dL Urine Glucose (UA) Negative (Negative) mg/dL Urine Ketones Negative (Negative) mg/dL Urine Blood Negative (Negative) Urine Nitrite Negative (Negative) Ur Leukocyte Esterase Negative (Negative) Urine Test (NEGATIVE) COVID-19 (JASWINDER) (Negative) COVID-19 Clin Com Influenza Type A (LUZ) (Negative) Influenza Type B (LUZ) (Negative) Influenza A & B Note 10/08/22 10/08/22 10/08/22 Range/Units 17:52 19:20 19:20 WBC (4.8-10.8) X10*3/uL RBC (4.20-5.50) X10*6/uL Hgb (12.0-16.0) g/dl Hct (37.0-47.0) % MCV (80.0-98.0) fL MCH (27.0-33.0) pg MCHC (31.0-35.0) g/dl RDW (11.0-16.0) % Plt Count (160-400) X10*3/uL MPV (9.4-12.3) fL Immature Gran % (Auto) (0.0-0.4) % Neut % (Auto) (45-73) % Lymph % (Auto) (20-40) % Sumner % (Auto) (2-11) % Eos % (Auto) (0-4) % Baso % (Auto) (0-2) % Lymph # (Auto) (1.2-4.9) X10*3/uL Sumner # (Auto) (0.1-1.2) X10*3/uL Eos # (Auto) (0.0-0.4) X10*3/uL Baso # (Auto) (0.0-0.2) X10*3/uL Abs Immat Gran (auto) (0.00-0.03) X10*3/uL Absolute Neuts (auto) (2.0-8.3) x10*3/uL Absolute Nucleated RBC (0.0-0.012) X10*3/uL Nucleated RBC % (auto) (0.0-0.2) /100WBC Sodium (135-145) mmol/L Potassium (3.3-5.1) mmol/L Chloride (96-108) mmol/L Carbon Dioxide (22-29) mmol/L Anion Gap (12-20) BUN (9-16) mg/dL Creatinine (0.5-1.4) mg/dL Estim Creat Clear Calc Estimated GFR Random Glucose (60-115) mg/dL Calcium (8.4-10.2) mg/dL Magnesium (1.6-2.6) mg/dL Total Bilirubin (0.0-1.0) mg/dL Direct Bilirubin (0.0-0.5) mg/dL AST (5-31) U/L ALT (0-31) U/L Alkaline Phosphatase (39-117) U/L Total Protein (6.5-8.0) g/dL Albumin (3.5-5.0) g/dL Lipase (8-78) U/L Urine Color Urine Appearance Urine pH (5.0-9.0) Ur Specific [place] (1.005-1.025) Urine Protein (Neg-Trace) mg/dL Urine Glucose (UA) (Negative) mg/dL Urine Ketones (Negative) mg/dL Urine Blood (Negative) Urine Nitrite (Negative) Ur Leukocyte Esterase (Negative) Urine Test NEGATIVE (NEGATIVE) COVID-19 (JASWINDER) Negative (Negative) COVID-19 Clin Com See Note Influenza Type A (LUZ) Negative (Negative) Influenza Type B (LUZ) Negative (Negative) Influenza A & B Note See Note <LAUREN Sauer - Last Filed: 10/08/22 12:45> Lab Results 10/08/22 10/08/22 10/08/22 Range/Units 12:51 12:51 17:52 WBC 7.8 (4.8-10.8) X10*3/uL RBC 4.41 (4.20-5.50) X10*6/uL Hgb 13.8 (12.0-16.0) g/dl Hct 40.3 (37.0-47.0) % MCV 91.4 (80.0-98.0) fL MCH 31.3 (27.0-33.0) pg MCHC 34.2 (31.0-35.0) g/dl RDW 12.5 (11.0-16.0) % Plt Count 294 (160-400) X10*3/uL MPV 9.5 (9.4-12.3) fL Immature Gran % (Auto) 0.1 (0.0-0.4) % Neut % (Auto) 52.1 (45-73) % Lymph % (Auto) 39.0 (20-40) % Sumner % (Auto) 7.0 (2-11) % Eos % (Auto) 1.3 (0-4) % Baso % (Auto) 0.5 (0-2) % Lymph # (Auto) 3.1 (1.2-4.9) X10*3/uL Sumner # (Auto) 0.6 (0.1-1.2) X10*3/uL Eos # (Auto) 0.1 (0.0-0.4) X10*3/uL Baso # (Auto) 0.0 (0.0-0.2) X10*3/uL Abs Immat Gran (auto) 0.01 (0.00-0.03) X10*3/uL Absolute Neuts (auto) 4.1 (2.0-8.3) x10*3/uL Absolute Nucleated RBC 0.000 (0.0-0.012) X10*3/uL Nucleated RBC % (auto) 0.0 (0.0-0.2) /100WBC Sodium 138 (135-145) mmol/L Potassium 4.3 (3.3-5.1) mmol/L Chloride 107 (96-108) mmol/L Carbon Dioxide 22 (22-29) mmol/L Anion Gap 13 (12-20) BUN 9 (9-16) mg/dL Creatinine 0.72 (0.5-1.4) mg/dL Estim Creat Clear Calc 124.3 Estimated GFR > 60 Random Glucose 88 (60-115) mg/dL Calcium 9.4 (8.4-10.2) mg/dL Magnesium 2.1 (1.6-2.6) mg/dL Total Bilirubin 0.5 (0.0-1.0) mg/dL Direct Bilirubin < 0.2 (0.0-0.5) mg/dL AST 21 (5-31) U/L ALT 19 (0-31) U/L Alkaline Phosphatase 68 (39-117) U/L Total Protein 6.7 (6.5-8.0) g/dL Albumin 4.4 (3.5-5.0) g/dL Lipase 31 (8-78) U/L Urine Color Yellow Urine Appearance Clear Urine pH 5.5 (5.0-9.0) Ur Specific [place] 1.015 (1.005-1.025) Urine Protein Negative (Neg-Trace) mg/dL Urine Glucose (UA) Negative (Negative) mg/dL Urine Ketones Negative (Negative) mg/dL Urine Blood Negative (Negative) Urine Nitrite Negative (Negative) Ur Leukocyte Esterase Negative (Negative) Urine Test (NEGATIVE) COVID-19 (JASWINDER) (Negative) COVID-19 Clin Com Influenza Type A (LUZ) (Negative) Influenza Type B (LUZ) (Negative) Influenza A & B Note 10/08/22 10/08/22 10/08/22 Range/Units 17:52 19:20 19:20 WBC (4.8-10.8) X10*3/uL RBC (4.20-5.50) X10*6/uL Hgb (12.0-16.0) g/dl Hct (37.0-47.0) % MCV (80.0-98.0) fL MCH (27.0-33.0) pg MCHC (31.0-35.0) g/dl RDW (11.0-16.0) % Plt Count (160-400) X10*3/uL MPV (9.4-12.3) fL Immature Gran % (Auto) (0.0-0.4) % Neut % (Auto) (45-73) % Lymph % (Auto) (20-40) % Sumner % (Auto) (2-11) % Eos % (Auto) (0-4) % Baso % (Auto) (0-2) % Lymph # (Auto) (1.2-4.9) X10*3/uL Sumner # (Auto) (0.1-1.2) X10*3/uL Eos # (Auto) (0.0-0.4) X10*3/uL Baso # (Auto) (0.0-0.2) X10*3/uL Abs Immat Gran (auto) (0.00-0.03) X10*3/uL Absolute Neuts (auto) (2.0-8.3) x10*3/uL Absolute Nucleated RBC (0.0-0.012) X10*3/uL Nucleated RBC % (auto) (0.0-0.2) /100WBC Sodium (135-145) mmol/L Potassium (3.3-5.1) mmol/L Chloride (96-108) mmol/L Carbon Dioxide (22-29) mmol/L Anion Gap (12-20) BUN (9-16) mg/dL Creatinine (0.5-1.4) mg/dL Estim Creat Clear Calc Estimated GFR Random Glucose (60-115) mg/dL Calcium (8.4-10.2) mg/dL Magnesium (1.6-2.6) mg/dL Total Bilirubin (0.0-1.0) mg/dL Direct Bilirubin (0.0-0.5) mg/dL AST (5-31) U/L ALT (0-31) U/L Alkaline Phosphatase (39-117) U/L Total Protein (6.5-8.0) g/dL Albumin (3.5-5.0) g/dL Lipase (8-78) U/L Urine Color Urine Appearance Urine pH (5.0-9.0) Ur Specific [place] (1.005-1.025) Urine Protein (Neg-Trace) mg/dL Urine Glucose (UA) (Negative) mg/dL Urine Ketones (Negative) mg/dL Urine Blood (Negative) Urine Nitrite (Negative) Ur Leukocyte Esterase (Negative) Urine Test NEGATIVE (NEGATIVE) COVID-19 (JASWINDER) Negative (Negative) COVID-19 Clin Com See Note Influenza Type A (LUZ) Negative (Negative) Influenza Type B (LUZ) Negative (Negative) Influenza A & B Note See Note <LAUREN Reyna - Last Filed: 10/08/22 20:03> Core Measures AMI core measures followed: Yes <LAUREN Reyna - Last Filed: 10/08/22 20:03> Measure exclusions: not indicated <LAUREN Reyna - Last Filed: 10/08/22 20:03> Critical Care Time Critical Care Time Critical Care Time: No <LAUREN Reyna - Last Filed: 10/08/22 20:03> Discharge Plan Discharge Clinical Impression: Viral illness, Diarrhea <LAUREN Sauer - Last Filed: 10/08/22 12:45> Patient Disposition: Home, Self-Care <LAUREN Sauer - Last Filed: 10/08/22 12:45> Instructions: Viral Syndrome (ED) <LAUREN Sauer - Last Filed: 10/08/22 12:45> Additional Instructions: Take your medications as prescribed. If you were prescribed antibiotics today, it is important that you take your medication to their entirety, do not skip any doses, do not finish them early. Follow-up with your primary care provider this week. Return to the emergency department with new or worsening symptoms. In case of emergency call 911 <LAUREN Sauer - Last Filed: 10/08/22 12:45> Prescriptions: New loperamide [Anti-Diarrheal (loperamide)] 2 mg capsule 2 mg PO Q6H PRN (Reason: loose stool) Qty: 30 0RF No Action trazodone 50 mg Tablet 50 mg PO BEDTIME 30 Days Qty: 30 0RF benztropine 1 mg tablet 0.5 mg PO BID PRN hydroxyzine HCl 50 mg tablet 50 mg PO TID escitalopram oxalate 10 mg tablet 10 mg PO DAILY clonidine HCl 0.1 mg tablet 0.1 mg PO BID Liletta 20.1 mcg/24 hrs (6 yrs) 52 mg intrauterine device intrauterine diclofenac sodium [Arthritis Pain (diclofenac)] 1 % gel 4 g topical QID PRN (Reason: joint pain) Qty: 100 0RF Rx Instructions: apply to single knee, ankle, foot; for foot includes sole/toes/top of foot <LAUREN Sauer - Last Filed: 10/08/22 12:45> Referrals: Mercy Santiago MD [Primary Care Provider] - 2 days <LAUREN Sauer - Last Filed: 10/08/22 12:45> Stand Alone Forms: Work/School Release <LAUREN Sauer - Last Filed: 10/08/22 12:45>
[2022-10-08 12:43] VITALS: BP 134/69; PULSE 88; RESP 18; TEMP 36.6; O2SAT 98
[2022-10-08 12:55] LABS: MANUAL DIFF FLAG NO
[2022-10-08 12:56] LABS: Basophils Percent Auto 0.5 % (0-2); Eosinophils Absolute Auto 0.1 X10*3/uL (0.0-0.4); Eosinophils Percent Auto 1.3 % (0-4); Hematocrit 40.3 % (37.0-47.0); Hemoglobin 13.8 g/dl (12.0-16.0); Imm Gran Abs Auto 0.01 X10*3/uL (0.00-0.03); Imm Gran Pct Auto 0.1 % (0.0-0.4); Lymphocytes Absolute Auto 3.1 X10*3/uL (1.2-4.9); Mean Corpuscular HGB Conc 34.2 g/dl (31.0-35.0); Mean Corpuscular Hemoglobin 31.3 pg (27.0-33.0); Mean Corpuscular Volume 91.4 fL (80.0-98.0); Mean Platelet Volume 9.5 fL (9.4-12.3); Monocytes Absolute Auto 0.6 X10*3/uL (0.1-1.2); Neutrophils Absolute Auto 4.1 x10*3/uL (2.0-8.3); Neutrophils Percent Auto 52.1 % (45-73); Platelet Count 294 X10*3/uL (160-400); Red Blood Count 4.41 X10*6/uL (4.20-5.50); Red Cell Distribution Width 12.5 % (11.0-16.0); White Blood Count 7.8 X10*3/uL (4.8-10.8)
[2022-10-08 13:14] LABS: Alanine Aminotransferase 19 U/L (0-31); Albumin Level 4.4 g/dL (3.5-5.0); Alkaline Phosphatase 68 U/L (39-117); Anion Gap 13 (12-20); Aspartate Amino Transferase 21 U/L (5-31); Bilirubin Direct < 0.2 mg/dL (0.0-0.5); Bilirubin Total 0.5 mg/dL (0.0-1.0); Blood Urea Nitrogen 9 mg/dL (9-16); Calcium 9.4 mg/dL (8.4-10.2); Carbon Dioxide 22 mmol/L (22-29); Chloride 107 mmol/L (96-108); Creatinine Clr Calc Pharmacy 124.3; Estimated Glomerular Filt Rate > 60; Glucose Random 88 mg/dL (60-115); Lipase 31 U/L (8-78); Magnesium 2.1 mg/dL (1.6-2.6); Potassium 4.3 mmol/L (3.3-5.1); Sodium 138 mmol/L (135-145); Total Protein 6.7 g/dL (6.5-8.0)
[2022-10-08 17:19] VITALS: BP 112/53; PULSE 56; RESP 16; TEMP 37; O2SAT 97
[2022-10-08] MEDS: Loperamide HCl 2 MG CAPSULE PO (17:48)
[2022-10-08 18:00] LABS: Appearance Urine Clear; Color Urine Yellow; Glucose Urine UA Negative (Negative); Leukocyte Esterase Urine Negative (Negative); Nitrite Urine Negative (Negative); PH 5.5 (5.0-9.0); Specific Gravity - Urine 1.015 (1.005-1.025); Urine Blood Negative (Negative); Urine Ketones Negative (Negative); Urine Protein Negative (Neg-Trace)
[2022-10-08 18:01] LABS: UPreg QC Valid YES; Urine Pregnancy NEGATIVE (NEGATIVE)
[2022-10-08] MEDS: 0.9 % Sodium Chloride 1,000 ML 999 ML IV (19:27)
[2022-10-08 19:38] VITALS: BP 98/45; PULSE 49
[2022-10-08 19:39] VITALS: BP 102/65; PULSE 50
[2022-10-08 19:41] VITALS: BP 109/65; PULSE 72
[2022-10-08 19:41] LABS: COVID-19 Test Negative (Negative); IDNOW Serial# 6674DD1D
[2022-10-08 19:43] LABS: IDNOW Serial# 55D5AD1C; Influenza A Negative (Negative); Influenza B2 Negative (Negative)
[2022-10-08 20:24] VITALS: BP 104/56; PULSE 59; RESP 16; TEMP 36.8; O2SAT 99
== END 2022-10-08 20:26 | disposition home or self-care (01) ==
PROVIDERS: Physician Assistant; Emergency Provider Emergency Medicine; PCP Internal Medicine
DX: B34.9 Viral infection, unspecified (principal); R19.7 Diarrhea, unspecified; Z20.822 Contact with and (suspected) exposure to COVID-19; F17.200 Nicotine dependence, unspecified, uncomplicated; F12.90 Cannabis use, unspecified, uncomplicated; Z79.899 Other long term (current) drug therapy
CPT/HCPCS: 36415; 80048; 80076; 81003; 81025; 83690; 83735; 85025; 87502; 87635; 96360; 99284; 99285

== ENCOUNTER 2022-11-09 14:06 | Outpatient (AMB) | payer BC, SELFPAY ==
--- NOTE | 2022-11-09 14:03 | A.OFFPC_ITS ---
Intake Visit Reasons: request rx to stop smoking 1phone [phone] Intake Note: Pt is having a telehealth visit to discuss smoking cessation Allergies olanzapine [From Zyprexa] Adverse Reaction (Verified 04/25/23 12:51) Rash Medication List - Last Reconciled 11/09/22 by Mercy Santiago MD benztropine 0.5 mg PO BID PRN clonidine HCl 0.1 mg PO BID escitalopram oxalate 10 mg PO DAILY levonorgestrel (Liletta) intrauterine trazodone 50 mg PO BEDTIME 30 days Tobacco use date assessed: 11/09/22 HPI request rx to stop smoking 1phone [phone] HPI Details 32-year-old lady here today wanting to g et some assistance in quitting smoking. Trying to cut back, now down to 5 cigarettes a day. 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 Acute psychosis Surgical History History of appendectomy Family History Mother Family history of cancer tonsil History of squamous cell carcinoma Mental health disorder Maternal Grandfather History of prostate cancer Family/Other History of breast cancer, Onset Age: 61 Social History Household Members: Family Housing: Apartment Do you presently have visiting nurse or other home services: No Alcohol intake: never Patient Tobacco Use Status: Current everyday Tobacco user Years Smoked: 5 e-Cigarette/Vaping Use: Never Used Second Hand Smoke Exposure: Yes Substance Use Type: Marijuana service: No Current occupational status: employed Sexual orientation: Straight/Heterosexual Cognitive needs: No Hearing needs: No Vision needs: Yes Questionnaire Thrive Questionnaire Date Thrive assessed: 08/05/22 AUDIT C Alcohol Use Questionnaire (AUDIT-C) 1. How often do you have a drink containing alcohol?: Never Total Score: 0 BINA-7 AMB Questionnaire BNIA-7 Date BINA - 7 assessed: 08/05/22 Source: Developed by Drs. Obdulio Cortes, Jeannette Monson, Jigar Harden and colleagues, with an educational bianca from [employer]. Review of Systems Const All systems reviewed & are unremarkable except as noted in HPI and below Reports no additional complaints ENT Reports no additional complaints Card Reports no additional complaints Resp Reports no additional complaints GI Reports no additional complaints Musc Reports no additional complaints Neuro Reports no additional complaints Psych Reports no additional complaints Endo Reports no additional complaints Roberth/Lymph Reports no additional complaints Aller/Immun Reports no additional complaints Physical exam (Primary Care) Tobacco/Smoking Status: Tobacco use Status Tobacco use date assessed 11/09/22 11/09/22 14:05 Patient Tobacco Use Status Current everyday Tobacco 11/09/22 14:05 Tobacco use type 12/07/21 13:32 e-Cigarette/Vaping Use Never Used 11/09/22 14:05 Thrive Assessment: Date of Thrive Assessment Date Thrive assessed 08/05/22 11/09/22 14:05 Assessment and Plan Assessment & Plan (1) Cigarette smoker motivated to quit: Code(s): F17.210 - Nicotine dependence, cigarettes, uncomplicated Plan: IDiscussed options for smoking cessation with medications. Pt wishes to try Nicoderm patch. Pt advised to apply the nicotine patch as directed on cigarette quit day. Discussed common side effects and strongly advised not to smoke while using the patch. If developes any adverse effects please call office. Follow up in office 4-6 weeks and 1 week by phone with update.Discussed side effects including but not limited to local erythema, rash, diarrhea, and insomnia. Medications: New nicotine 1 patch transdermal DAILY 28 ea 0RF F17.210 - Nicotine dependence, cigarettes, uncomplicated Coding Level of Care Code Tele Est Pt Level 3 (20617) Diagnoses Cigarette smoker motivated to quit F17.210
== END 2022-11-09 17:02 | disposition home or self-care (01) ==
LOC: HO.HMGC 14:06
PROVIDERS: PCP Internal Medicine; Visit Provider Internal Medicine
DX: F17.210 Nicotine dependence, cigarettes, uncomplicated (principal)
CPT/HCPCS: 99213

== ENCOUNTER 2023-03-25 10:50 | Outpatient (AMB) | payer BC, SELFPAY ==
--- NOTE | 2023-03-25 11:01 | MHC.OFFWIV ---
Intake Vital Signs 03/25/23 11:10 Weight 64.864 kg BP 138/80 Blood Pressure Location Lt brachial Position Sitting Pulse 67 Pulse Source Pulse Oximeter Temp 98 F Temp Source Oral Pulse Oximetry (%) 96 Oxygen Delivery Method Room Air Intake Visit Reasons: EST/right side pain going through back Intake Note: PT c/o of pain on LT side that goes all the way through to hear back. States it feels like an arrow that's one straight shot . No shortness of breath. No numbness in left arm. Patient Tobacco Use Status: Current everyday Tobacco user Allergies olanzapine [From Zyprexa] Adverse Reaction (Verified 03/25/23 11:09) Rash HPI HPI Comments History of Present Illness Details 1128 32-year-old female history of smoking, with IUD in place presents to the clinic for evaluation of sharp left-sided chest pain, and associated shortness of breath both of which are worse with deep breathing pain has been present for a few weeks worsening, she reports she is also coughing up black stuff, she does not know if it is blood or not. She is trying to stop smoking. Patient reports significant shortness of breath and at times she feels like her heart is racing. Patient denies recent sick contacts, fevers and chills. Physical examination benign. Vital signs stable. Patient is PERC negative however does have some risk factors, I explained to patient he grabbed lab work to rule out PE, ACS however she may require further evaluation and treatment if lab work is abnormal. I explained her that is abnormal she would have to go to the emergency department, however patient states she would just rather go there and get everything done at once. Patient will go to [facility] Emergency Department at this time. Patient will drive herself. I do not suspect HOCOM, disection. 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 Acute psychosis Surgical History History of appendectomy Family History Mother Family history of cancer tonsil History of squamous cell carcinoma Mental health disorder Maternal Grandfather History of prostate cancer Family/Other History of breast cancer, Onset Age: 60 Social History Household Members: Family Housing: Apartment Do you presently have visiting nurse or other home services: No Alcohol intake: never Patient Tobacco Use Status: Current everyday Tobacco user Years Smoked: 5 e-Cigarette/Vaping Use: Never Used Second Hand Smoke Exposure: Yes Substance Use Type: Marijuana service: No Current occupational status: employed Sexual orientation: Straight/Heterosexual Cognitive needs: No Hearing needs: No Vision needs: Yes Review of Systems Const Details: Constitutional : No Weight loss, No Fever, No Chills, No Fatigue, No Malaise ENT/Mouth : No sore throat, No Rhinorrhea Eyes: No Eye Pain, No Swelling, No Redness Cardiovascular : + Chest Pain, + SOB, + Dyspnea on Exertion, No Orthopnea, No Edema, No Palpitations Respiratory : No Cough, No Sputum, No Wheezing Gastrointestinal : No Nausea, No Vomiting, No Diarrhea, No Constipation, No abdominal Pain, No Hematochezia, No Melena Genitourinary : No Dysuria, No Urinary Frequency, No Hematuria, Musculoskeletal : No joint pain, No Myalgias, No Joint Swelling Skin : No Skin Lesions, No rash Neuro : No Weakness, No Numbness, No Dizziness, No Headache Psych : No Anxiety/Panic, No Depression All other systems reviewed and are negative All systems reviewed & are unremarkable except as noted in HPI and below Physical Exam Vital Signs: Last Vital Signs Temp 98 F 03/25/23 11:10 Pulse 67 03/25/23 11:10 BP 138/80 03/25/23 11:10 Pulse Ox 96 03/25/23 11:10 Oxygen Delivery Method Room Air 03/25/23 11:10 vsss Appearance: Alert.? Oriented X3.? No acute distress.? Head: Normocephalic, atraumatic, no step-offs or deformities Eyes: Pupils equal, round and reactive to light.? CVS: Normal heart rate and rhythm.? Pulses normal.? Respiratory: No respiratory distress.? Breath sounds normal.? Abdomen: Soft and nontender.? Skin: Skin warm and dry.? Normal skin color.? Normal skin turgor.? Extremities: No lower extremity edema.? No calf ttp. 5/5 strength to bilateral upper and lower extremities Neuro: Oriented X 3.? No motor deficit.? No sensory deficit. CN 2-12 intact Assessment & Plan Assessment & Plan (1) Chest pain: Code(s): R07.9 - Chest pain, unspecified (2) Shortness of breath: Code(s): R06.02 - Shortness of breath Plan Take your medications as prescribed. If you were prescribed antibiotics today, it is important that you take your medication to their entirety, do not skip any doses, do not finish them early. Follow-up with your primary care provider this week. Return to the emergency department with new or worsening symptoms. Such as fevers, chills, chest pain, shortness of breath, nausea, vomiting, dizziness, headache, vision changes, lethargy In case of emergency call 911 Coding Level of Care Code Est Pt Level 3 (42850) Diagnoses Chest pain R07.9 Shortness of breath R06.02
[2023-03-25 11:10] VITALS: BP 138/80; PULSE 67; TEMP 36.6; O2SAT 96
== END 2023-03-25 11:31 | disposition home or self-care (01) ==
PROVIDERS: PCP Internal Medicine; Visit Provider Physician Assistant
DX: R07.9 Chest pain, unspecified (principal); R06.02 Shortness of breath
CPT/HCPCS: 99213

== ENCOUNTER 2023-03-25 12:37 | Emergency (ER) | payer BC, SELFPAY ==
--- NOTE | ~2023-03-25 | XR_ITS ---
EXAMINATION: XR CHEST CLINICAL INFORMATION: Reason for Exam Chest pain COMPARISON: Chest radiograph 08/07/2020 TECHNIQUE: 2 views of the chest FINDINGS: Lines and tubes: None. Clear lungs. No pleural effusion. No pneumothorax. Normal cardiomediastinal silhouette. XR/XR chest 2V IMPRESSION: * Clear lungs.
[2023-03-25 13:59] VITALS: BP 104/62; PULSE 50; RESP 19; TEMP 36.6; O2SAT 99; BMI 23.8
--- NOTE | 2023-03-25 14:02 | ECG_ITS ---
Test Reason : PAIN Blood Pressure : / mmHG Vent. Rate : 042 BPM Atrial Rate : 042 BPM P-R Int : 124 ms QRS Dur : 086 ms QT Int : 456 ms P-R-T Axes : 069 039 021 degrees QTc Int : 380 ms Marked sinus bradycardia Cannot rule out Anterior infarct , age undetermined Abnormal ECG When compared with ECG of 13-AUG-2020 10:35, Vent. rate has decreased BY 21 BPM QT has shortened Referred By: Fadi Jansen Electronically Signed By:JOSEFINA CHU
--- NOTE | 2023-03-25 14:06 | ED.GENADULT ---
HPI - General Adult General Chief complaint: General Medical Stated complaint: referred by UG/ Lungs sharp pain Time Seen by Provider: 03/25/23 15:20 Source: patient Mode of arrival: ambulatory Limitations: no limitations History of Present Illness HPI narrative: Patient is a 32 year old female with a PMH of anxiety and depression presents to the ED due to chest pain. She's been experiencing intermittent chest pain for a month and denies any traumatic injury that might have triggered her symptoms. She notices the chest pain when she takes deep breaths and states that the pain is alleviated when she palpates the area. She denies fever, cough, or being recently ill prior to her symptoms starting. She states that her father and grandmother have a cardiac history but is unable to elaborate. Patient denies taking any OTC medication to alleviate her symptoms. Chest pain is not exertional in nautre. She denies leg swelling/leg pain, vomiting, diaphoresis, shortness of breath. No OCP therapy, no recent travel. Seen at and referred in for further evaluation. Related Data Home Medications Medication Instructions Recorded Confirmed clonidine HCl 0.1 mg tablet 0.1 mg PO BID anxiety 05/28/21 01/21/23 escitalopram oxalate 10 mg tablet 10 mg PO DAILY 05/28/21 01/21/23 levonorgestrel 20.4 mcg/24 hrs (8 intrauterine 08/06/21 01/21/23 yrs) 52 mg intrauterine device (Liletta) benztropine 1 mg tablet 0.5 mg PO BID PRN 08/05/22 01/21/23 bupropion HCl 150 mg 24 hr tablet, 150 mg PO QAM 01/21/23 01/21/23 extended release Previous Rx's Medication Instructions Recorded cetirizine 10 mg tablet (Allergy 10 mg PO DAILY PRN allergy 11/29/22 Relief (cetirizine)) symptoms #30 tabs fluconazole 150 mg tablet 150 mg PO Q3D 2 doses #2 tabs 01/21/23 (Diflucan) nicotine 21 mg/24 hr daily 1 patch transdermal DAILY #28 ea 01/27/23 transdermal patch ibuprofen 600 mg tablet 600 mg PO Q8H PRN pain #20 tabs 03/25/23 Allergies Allergy/AdvReac Type Severity Reaction Status Date / Time olanzapine [From Zyprexa] AdvReac Rash Verified 03/25/23 13:59 Review of Systems Review of Systems: Yes all other systems are reviewed and are negative Constitutional: Constitutional: Reports no additional constitutional complaints, Denies body ache(s), Denies chills, Denies fever(s), Denies headache(s) and Denies weakness Eyes: Eyes: Reports no additional eye complaints and Denies change in vision ENT: Reports system reviewed and no additional complaints, except as documented, Denies dizziness, Denies headache(s), Denies nasal congestion, Denies nasal discharge and Denies neck pain Cardiovascular: Cardiovascular: Reports no additional cardiovascular complaints, Reports chest pain, Denies leg edema and Denies dyspnea Respiratory: Respiratory: Reports no additional respiratory complaints, Denies cough and Denies dyspnea Gastrointestinal: Gastrointestinal: Reports no additional gastrointestinal complaints, Denies abdominal pain, Denies diarrhea, Denies nausea and Denies vomiting Genitourinary: Genitourinary: Reports no additional female genitourinary complaints and Denies urinary incontinence Musculoskeletal: Musculoskeletal: Reports no additional musculoskeletal complaints, Denies back pain, Denies arthralgias, Denies joint swelling, Denies neck pain, Denies numbness and Denies tingling Integumentary/Breasts: Skin/Breast: Reports system reviewed and no additional complaints, except as docu and Denies rash Neurologic: Reports system reviewed and no additional complaints, except as documented, Denies Abnormal speech present, Denies dizziness, Denies headache(s), Denies numbness, Denies tingling and Denies weakness PMFSH Past Medical History Attestation statement: The following information was validated with the patient. 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 Acute psychosis Surgical History History of appendectomy Family History Family History Mother Family history of cancer tonsil History of squamous cell carcinoma Mental health disorder Maternal Grandfather History of prostate cancer Family/Other History of breast cancer, Onset Age: 60 Social History Social History Household Members: Family Housing: Apartment Do you presently have visiting nurse or other home services: No Alcohol intake: never Patient Tobacco Use Status: Current everyday Tobacco user Years Smoked: 5 e-Cigarette/Vaping Use: Never Used Second Hand Smoke Exposure: Yes Substance Use Type: Marijuana Advance Directives: No Advance Directives Information Provided: No service: No Current occupational status: employed Sexual orientation: Straight/Heterosexual Cognitive needs: No Hearing needs: No Vision needs: Yes Physical Exam ED Vital Signs: Vital Signs - 24 hr 03/25/23 13:59 Temperature 98 F Pulse Rate 50 Respiratory Rate 19 Blood Pressure 104/62 Pulse Oximetry 99 Oxygen Delivery Method Room Air BMI result Body Mass Index 23.8 Const General: cooperative, healthy appearing, comfortable and no acute distress Orientation/consciousness: patient oriented x3 Limitations: no limitations HENMT Head: Yes normal to inspection Ears: hearing grossly normal bilaterally General nose exam: Normal external nose present Face and sinus: Yes normal facial exam Mouth: Normal oral and palatal mucosa present Throat: Yes posterior oropharynx normal Eyes General: appearance normal, both eyes and all related structures Pupils: Equal, round and reactive pupils present Neck Neck: Yes normal visual inspection Chest Chest palpation & inspection: normal inspection of the chest Resp Effort & Inspection: normal respiratory effort Auscultation: clear to auscultation bilaterally Cardio Rate: regular rate Rhythm: regular rhythm Peripheral pulses: Peripheral pulses 2+ throughout GI Inspection: Yes normal to inspection Palpation (GI): Soft to palpation and nontender Auscultation: normal bowel sounds Back/Spine/Pelvis Thoracic/Lumbar Spine: thoracic and lumbar spine normal to inspection Skin General skin exam: no rashes or lesions noted Neuro General: patient oriented x3, no focal motor deficits and normal sensation to monofilament Cranial nerves: Yes Equal, round and reactive pupils present Cognition (Neuro): normal cognition Speech: No Abnormal speech present Gait exam (Neuro): Normal gait present Motor exam (neuro): 5/5 motor strength present throughout Extrem General: Yes normal to inspection, Yes no pedal edema and Yes no calf tenderness Course Course Course Narrative: Patient complains of chest pain for 1 month pleuritic, no shortness of breath no calf swelling, saw primary doctor who recommended go to the ER be checked for blood clot No tachycardia no shortness of breath Labs, EKG, chest x-ray ordered This is rapid medical exam in triage to be followed by full evaluation by ER provider for full history and physical, review of all lab and imaging results and dispo the patient Reevaluation(s) Reevaluation #1: labs are unremarkable. EKG is nonischemic, viral testing is negative. Chest x-ray shows no acute finding. Reviewed workup with patient. Recommend follow-up outpatient with primary care. Reviewed worrisome signs and symptoms of when to return to the emergency room. Comfortable plan for discharge home. Medical Decision Making Differential Diagnosis Differential Diagnoses: The differential diagnosis associated with the presentation includes Costochondritis ACS - unremarkable EKG and troponin levels are not suggestive w/ symptoms >1 month, non exertional in nature Pulmonary embolism - no recent surgery, not currently on OCP, VSS, no unilateral leg swelling are not suggestive, PERC 0 Aortic dissection - no PMH of HTN and the duration of the intermittent chest pain are not suggestive Admission/Observation Consideration of admission/observation: Escalation of care including admission/observation considered Heart score is 0, no need for admission for cardiac w/u Lab Data MDM Lab Attestation statement: I reviewed the patient's lab results. unremarkable 03/25/23 14:38 03/25/23 14:38 Labs: Lab Results 03/25/23 03/25/23 Range/Units 14:38 15:29 WBC 7.0 (4.8-10.8) X10*3/uL RBC 4.55 (4.20-5.50) X10*6/uL Hgb 14.3 (12.0-16.0) g/dl Hct 42.8 (37.0-47.0) % MCV 94.1 (80.0-98.0) fL MCH 31.4 (27.0-33.0) pg MCHC 33.4 (31.0-35.0) g/dl RDW 12.3 (11.0-16.0) % Plt Count 262 (160-400) X10*3/uL MPV 9.5 (9.4-12.3) fL Immature Gran % (Auto) 0.3 (0.0-0.4) % Neut % (Auto) 55.2 (45-73) % Lymph % (Auto) 36.5 (20-40) % [place] % (Auto) 6.1 (2-11) % Eos % (Auto) 1.3 (0-4) % Baso % (Auto) 0.6 (0-2) % Lymph # (Auto) 2.6 (1.2-4.9) X10*3/uL [place] # (Auto) 0.4 (0.1-1.2) X10*3/uL Eos # (Auto) 0.1 (0.0-0.4) X10*3/uL Baso # (Auto) 0.0 (0.0-0.2) X10*3/uL Abs Immat Gran (auto) 0.02 (0.00-0.03) X10*3/uL Absolute Neuts (auto) 3.9 (2.0-8.3) x10*3/uL Absolute Nucleated RBC 0.000 (0.0-0.012) X10*3/uL Nucleated RBC % (auto) 0.0 (0.0-0.2) /100WBC PT 12.0 (11.1-13.3) SEC INR 1.0 (0.9-1.1) D-Dimer High Sensitivty < 150 NG/ML Sodium 140 (135-145) mmol/L Potassium 4.5 (3.3-5.1) mmol/L Chloride 108 (96-108) mmol/L Carbon Dioxide 25 (22-29) mmol/L Anion Gap 12 (12-20) BUN 9 (9-16) mg/dL Creatinine 0.77 (0.5-1.4) mg/dL Estim Creat Clear Calc 95.2 Estimated GFR > 60 Random Glucose 87 (60-115) mg/dL Calcium 9.9 (8.4-10.2) mg/dL Troponin I High Sens < 2.7 (<3.5-17.0) ng/L Urine Test NEGATIVE (NEGATIVE) COVID-19 (JASWINDER) Negative (Negative) COVID-19 Clin Com See Note Independent Interpretation I performed an independent interpretation of an: EKG and Plain X-Ray Interpretation: I independently reviewed the chest x-ray and agree with the radiology report I independently reviewed her EKG which shows sinus bradycardia with a rate of 42, normal WI, normal QRS, normal QT Radiology Impression Discussion of test interpretation with radiology: I have reviewed the radiologist's reading. Radiologist Impression: [id number] [place] [address] XRay Report Signed Patient: Venice Sheridan MR#: [id number] : 1990 Acct:[id number] Age/Sex: 32 / F ADM Date: 03/25/23 Loc: HO.ED Attending Dr: Ordering Physician: Fadi Jansen Date of Service: 03/25/23 Procedure(s): XR chest 2V Accession Number(s): [id number] cc: Mercy Santiago MD; Fadi Jansen~ EXAMINATION: XR CHEST CLINICAL INFORMATION: Reason for Exam Chest pain COMPARISON: Chest radiograph 08/07/2020 TECHNIQUE: 2 views of the chest FINDINGS: Lines and tubes: None. Clear lungs. No pleural effusion. No pneumothorax. Normal cardiomediastinal silhouette. XR/XR chest 2V IMPRESSION: * Clear lungs. Discharge Plan Discharge Clinical Impression: Chest pain Patient Disposition: Home, Self-Care Instructions: Chest Pain (ED) Prescriptions: New ibuprofen 600 mg tablet 600 mg PO Q8H PRN (Reason: pain) Qty: 20 0RF No Action cetirizine [Allergy Relief (cetirizine)] 10 mg tablet 10 mg PO DAILY PRN (Reason: allergy symptoms) Qty: 30 0RF nicotine 21 mg/24 hr patch 24 hour 1 patch transdermal DAILY Qty: 28 0RF benztropine 1 mg tablet 0.5 mg PO BID PRN bupropion HCl 150 mg tablet extended release 24 hr 150 mg PO QAM fluconazole [Diflucan] 150 mg tablet 150 mg PO Q3D 0 Days Qty: 2 0RF escitalopram oxalate 10 mg tablet 10 mg PO DAILY clonidine HCl 0.1 mg tablet 0.1 mg PO BID Liletta 20.1 mcg/24 hrs (6 yrs) 52 mg intrauterine device intrauterine Referrals: Mercy Santiago MD [Primary Care Provider] - 1 week Stand Alone Forms: Work/School Release Interventions: ED Discharge Assessment Last Done: 03/25/23 16:24 Discharge Date/Time: 03/25/23 16:27
[2023-03-25 14:42] LABS: MANUAL DIFF FLAG NO
[2023-03-25 14:44] LABS: Basophils Percent Auto 0.6 % (0-2); Eosinophils Absolute Auto 0.1 X10*3/uL (0.0-0.4); Eosinophils Percent Auto 1.3 % (0-4); Hematocrit 42.8 % (37.0-47.0); Hemoglobin 14.3 g/dl (12.0-16.0); Imm Gran Abs Auto 0.02 X10*3/uL (0.00-0.03); Imm Gran Pct Auto 0.3 % (0.0-0.4); Lymphocytes Absolute Auto 2.6 X10*3/uL (1.2-4.9); Lymphocytes Percent Auto 36.5 % (20-40); Mean Corpuscular HGB Conc 33.4 g/dl (31.0-35.0); Mean Corpuscular Hemoglobin 31.4 pg (27.0-33.0); Mean Corpuscular Volume 94.1 fL (80.0-98.0); Mean Platelet Volume 9.5 fL (9.4-12.3); Monocytes Absolute Auto 0.4 X10*3/uL (0.1-1.2); Monocytes Percent Auto 6.1 % (2-11); Neutrophils Absolute Auto 3.9 x10*3/uL (2.0-8.3); Neutrophils Percent Auto 55.2 % (45-73); Platelet Count 262 X10*3/uL (160-400); Red Blood Count 4.55 X10*6/uL (4.20-5.50); Red Cell Distribution Width 12.3 % (11.0-16.0)
[2023-03-25 14:47] LABS: UPreg QC Valid YES; Urine Pregnancy NEGATIVE (NEGATIVE)
[2023-03-25 14:58] LABS: Anion Gap 12 (12-20); Blood Urea Nitrogen 9 mg/dL (9-16); Calcium 9.9 mg/dL (8.4-10.2); Carbon Dioxide 25 mmol/L (22-29); Chloride 108 mmol/L (96-108); Creatinine Clr Calc Pharmacy 95.2; Estimated Glomerular Filt Rate > 60; Glucose Random 87 mg/dL (60-115); Potassium 4.5 mmol/L (3.3-5.1); Sodium 140 mmol/L (135-145)
[2023-03-25 15:10] LABS: Troponin-I High Sensitivity < 2.7 ng/L (<3.5-17.0)
[2023-03-25 15:40] LABS: D Dimer High Sensitivity < 150 NG/ML
[2023-03-25 15:50] LABS: COVID-19 Test Negative (Negative); IDNOW Serial# BCCEAD1C
== END 2023-03-25 16:27 | disposition home or self-care (01) ==
PROVIDERS: Nurse Practitioner Family; Physician Assistant Medical; Emergency Provider Emergency Medicine; PCP Internal Medicine
DX: R07.9 Chest pain, unspecified (principal); Z20.822 Contact with and (suspected) exposure to COVID-19; F17.200 Nicotine dependence, unspecified, uncomplicated; F12.90 Cannabis use, unspecified, uncomplicated; Z79.899 Other long term (current) drug therapy
CPT/HCPCS: 36415; 71046; 80048; 81025; 84484; 85025; 85379; 85610; 87635; 93005; 99283

== ENCOUNTER 2023-04-25 12:07 | Outpatient (AMB) | payer BC, SELFPAY ==
[2023-04-25 12:36] VITALS: BP 110/60; PULSE 74; TEMP 36.6; O2SAT 96; BMI 22.5
--- NOTE | 2023-04-25 12:36 | MHC.PC.OV ---
Vital Signs 04/25/23 12:36 Height 5 ft 5 in Weight 135 lb BMI 22.5 BP 110/60 Blood Pressure Location Rt brachial Position Sitting Pulse 74 Pulse Source Pulse Oximeter Temp 97.9 F Pulse Oximetry (%) 96 Oxygen Delivery Method Room Air Intake Visit Reasons: persistent cough Intake Note: patient is here today for persistent cough Allergies olanzapine [From Zyprexa] Adverse Reaction (Verified 04/25/23 12:51) Rash Medication List - Last Reconciled 04/25/23 by Mercy Santiago MD benztropine 0.5 mg PO BID PRN bupropion HCl 150 mg PO QAM cetirizine (Allergy Relief (cetirizine)) 10 mg PO DAILY PRN clonidine HCl 0.1 mg PO BID escitalopram oxalate 10 mg PO DAILY ibuprofen 600 mg PO Q8H PRN levonorgestrel (Liletta) intrauterine nicotine 1 patch transdermal DAILY Tobacco use date assessed: 04/25/23 Dental Screening Dental Screen Date: 04/25/23 Did you have a dental visit in the last 12 months?: No Did you have a dental problem in the last 6 months where you did not have access to dental care?: No Was dental information given to patient?: No HPI persistent cough HPI Details 32-year-old lady here today complaining of persistent cough, described as dry, not accompanied by any wheezing. She had a recent chest x-ray, and CBC done which came back with normal results. Still smokes cigarettes, but has now cut down to 5 cigarettes a day She has also been having a recurrent itchy rash coming out on different parts of her body. Patient states that it comes and goes and resolved spontaneously after several hours. 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 Acute psychosis Surgical History History of appendectomy Family History Mother Family history of cancer tonsil History of squamous cell carcinoma Mental health disorder Maternal Grandfather History of prostate cancer Family/Other History of breast cancer, Onset Age: 60 Social History Household Members: Family Housing: Apartment Do you presently have visiting nurse or other home services: No Alcohol intake: never Comment: would not answer questions Patient Tobacco Use Status: Current everyday Tobacco user Years Smoked: 5 e-Cigarette/Vaping Use: Never Used Second Hand Smoke Exposure: Yes Substance Use Type: Marijuana service: No Current occupational status: employed Sexual orientation: Straight/Heterosexual Cognitive needs: No Hearing needs: No Vision needs: Yes Questionnaire Thrive Questionnaire Date Thrive assessed: 08/05/22 AUDIT C Alcohol Use Questionnaire (AUDIT-C) 1. How often do you have a drink containing alcohol?: Never Total Score: 0 BINA-7 AMB Questionnaire BINA-7 Date BINA - 7 assessed: 08/05/22 Source: Developed by Drs. Obdulio Cortes, Jeannette Monson, Jigar Harden and colleagues, with an educational bianca from [employer]. Review of Systems Const Denies body aches, Denies fatigue, Denies fever(s), Denies headache(s) and Denies weakness ENT Denies dizziness, Denies headache(s), Denies nasal congestion, Denies nasal discharge and Denies sore throat Card Denies chest pain, Denies lightheadedness, Denies palpitations and Denies dyspnea Resp Denies chest congestion, Denies dyspnea and Denies wheezing GI Denies abdominal pain, Denies change in bowel habits and Denies heartburn Neuro Denies dizziness, Denies headache(s) and Denies weakness Endo Denies fatigue, Denies polydipsia, Denies polyuria and Denies palpitations Aller/Immun Denies seasonal rhinorrhea and Denies wheezing Physical exam (Primary Care) Vital Signs: Last Vital Signs Temp 97.9 F 04/25/23 12:36 Pulse 74 04/25/23 12:36 BP 110/60 04/25/23 12:36 Pulse Ox 96 04/25/23 12:36 Oxygen Delivery Method Room Air 04/25/23 12:36 BMI result Body Mass Index 22.5 Tobacco/Smoking Status: Tobacco use Status Tobacco use date assessed 04/25/23 04/25/23 12:42 Patient Tobacco Use Status Current everyday Tobacco 04/25/23 12:42 Tobacco use type 12/07/21 13:32 e-Cigarette/Vaping Use Never Used 04/25/23 12:42 Thrive Assessment: Date of Thrive Assessment Date Thrive assessed 08/05/22 04/25/23 12:42 Const General: comfortable, no acute distress and alert Orientation/consciousness: patient oriented x3 HENMT Ears: external ears normal General nose exam: Normal external nose present and No nasal discharge present Mouth: Normal oral and palatal mucosa present, oropharynx normal and moist mucous membranes Eyes General: appearance normal, both eyes and all related structures Conjunctivae: conjunctivae normal Sclerae: sclerae normal Pupils: Equal, round and reactive pupils present EOM: EOMs intact bilaterally Neck Neck: Yes full ROM, Yes no lymphadenopathy and Yes supple Resp Effort & Inspection: normal respiratory effort and able to speak in complete sentences Auscultation: clear to auscultation bilaterally Cardio Rate: regular rate Rhythm: regular rhythm Heart sounds: S1 normal heart sound present and S2 normal heart sound present GI Palpation (GI): Soft to palpation, nontender and no masses Auscultation: normal bowel sounds Skin General skin exam: no rashes or lesions noted Neuro General: patient oriented x3, gait normal, tone normal and moves all extremities Cranial nerves: Yes Equal, round and reactive pupils present Cognition (Neuro): normal cognition Extrem General: Yes full ROM, Yes no joint enlargement, Yes no clubbing, cyanosis or edema and Yes no calf tenderness Assessment and Plan Assessment & Plan (1) Cigarette smoker motivated to quit: Code(s): F17.210 - Nicotine dependence, cigarettes, uncomplicated Plan: Patient has now cut back down on smoking to 5 cigarettes a day, wants to try quitting using the patch. Prescription sent for nicotine patch 21 mg per patch to apply to clean dry areas on upper chest, outer arm, upper back once a day and remove at bedtime. Advised to rotate sites, do not smoke when using the patch. Return to the clinic in 4 weeks to see how she is doing and if ready to go down on the next nicotine patch dose (2) Persistent cough for 3 weeks or longer: Code(s): R05.3 - Chronic cough Plan: Ordered pulmonary function test and pulmonary function test with methacholine challenge to evaluate for either asthma /COPD. Stressed importance of smoking cessation. Follow-up after pulmonary function test done (3) Acute urticaria: Code(s): L50.8 - Other urticaria Plan: Prescription sent for cetirizine 10 mg per tablet, may take 1 tablet twice a day as needed or take 10 mg at night and half a tablet in the morning as needed for high, apply calamine lotion to as needed to affected areas Orders: Orders PFT pulmonary function test 04/25/23 F17.210 - Nicotine dependence, cigarettes, uncomplicated, R05.3 - Chronic cough RT pft w methacholine 04/25/23 F17.210 - Nicotine dependence, cigarettes, uncomplicated, R05.3 - Chronic cough Medications: New cetirizine 10 mg PO DAILY PRN 30 tabs 0RF allergy symptoms Changed From nicotine 1 patch transdermal DAILY 28 ea 0RF F17.210 - Nicotine dependence, cigarettes, uncomplicated To nicotine 1 patch transdermal DAILY 28 ea 0RF F17.210 - Nicotine dependence, cigarettes, uncomplicated Coding Level of Care Code Est Pt Level 3 (47558) Diagnoses Cigarette smoker motivated to quit F17.210 Persistent cough for 3 weeks or longer R05.3 Acute urticaria L50.8
== END 2023-04-25 14:53 | disposition home or self-care (01) ==
PROVIDERS: PCP Internal Medicine; Visit Provider Internal Medicine
DX: F17.210 Nicotine dependence, cigarettes, uncomplicated (principal); R05.3 Chronic cough; L50.8 Other urticaria
CPT/HCPCS: 99213; 99499

== ENCOUNTER 2023-04-28 08:16 | Outpatient (AMB) | payer BC, SELFPAY ==
--- NOTE | 2023-04-28 08:55 | AM.OFFWIN_ITS ---
Intake Vital Signs 04/28/23 08:56 Height 5 ft 5 in Weight 138 lb BMI 23.0 BP 108/68 Blood Pressure Location Rt brachial Position Sitting Pulse 54 Pulse Source Pulse Oximeter Pulse Oximetry (%) 98 Oxygen Delivery Method Room Air Intake Visit Reasons: EP Toe issues both feet Intake Note: Patient here for bilat toe pain, states when she puts shoes on or socks it pushes her pinky toe into the next toe and causes pain. Patient Tobacco Use Status: Current everyday Tobacco user Allergies olanzapine [From Zyprexa] Adverse Reaction (Verified 04/25/23 12:51) Rash Do you need a note to return to daycare/school/sports/work: Yes HPI HPI Comments History of Present Illness Details This is a 32-year-old female who presents to the office today for sick visit. Patient complaining of bilateral little toe pain. Patient states she has been having pain of the medial aspect of both of her pinky toes. She states the pain occurs when she puts on socks or shoes. She denies any swelling, erythema, ecchymosis. She denies any other trauma/injury to the area. 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 Acute psychosis Surgical History History of appendectomy Family History Mother Family history of cancer tonsil History of squamous cell carcinoma Mental health disorder Maternal Grandfather History of prostate cancer Family/Other History of breast cancer, Onset Age: 60 Social History Household Members: Family Housing: Apartment Do you presently have visiting nurse or other home services: No Alcohol intake: never Patient Tobacco Use Status: Current everyday Tobacco user Years Smoked: 5 e-Cigarette/Vaping Use: Never Used Second Hand Smoke Exposure: Yes Substance Use Type: Marijuana service: No Current occupational status: employed Sexual orientation: Straight/Heterosexual Cognitive needs: No Hearing needs: No Vision needs: Yes Review of Systems Const All systems reviewed & are unremarkable except as noted in HPI and below Reports no additional complaints Eyes Reports no additional complaints ENT Reports no additional complaints Card Reports no additional complaints Resp Reports no additional complaints GI Reports no additional complaints Reports no additional complaints Musc Reports no additional complaints Skin/Breast Reports system reviewed and no additional complaints, except as documented Neuro Reports no additional complaints Psych Reports no additional complaints Endo Reports no additional complaints Roberth/Lymph Reports no additional complaints Aller/Immun Reports no additional complaints Physical Exam Vital Signs: Last Vital Signs Pulse 54 04/28/23 08:56 BP 108/68 04/28/23 08:56 Pulse Ox 98 04/28/23 08:56 Oxygen Delivery Method Room Air 04/28/23 08:56 BMI result Body Mass Index 23.0 Const Other: Vital signs reviewed. Constitutional: Non-toxic appearing. No acute distress. Well-developed and well-nourished. HEENT: Normocephalic and atraumatic. Skin: Warm and dry. Small calluses to the medial aspect of bilateral pinky toes with minimal tenderness to palpation. Neck: Full and painless range of motion. No cervical lymphadenopathy. Cardio: Regular rate. No lower extremity edema. No JVD. Pulmonary: No respiratory distress. No accessory muscle usage. Gastrointestinal: Soft, nontender, and nondistended in all 4 quadrants. Musculoskeletal: Normal range of motion in joints throughout the body. No deformity or other signs of injury. Neuro: Alert and oriented x4. Cranial nerves 2-12 grossly intact. No focal deficits appreciated. Psych: Normal mood and affect. Assessment & Plan Assessment & Plan (1) Callus between toes: Code(s): L84 - Corns and callosities Plan This is a 32-year-old female presenting with calluses between her bilateral 4th- 5th toes likely in the setting of pressure/friction due to her socks/shoes. Recommended that the patient utilize foam pads to relieve the pressure between her toes while she is wearing her socks and shoes. She was recommended to use lidocaine gel to the area twice daily to help with pain. Patient verbalized understanding and is agreeable with the plan. Medications: New lidocaine HCl 4% (Aspercreme (lidocaine HCl)) 1 appl topical BID PRN 120 grams 0RF pain Coding Level of Care Code Est Pt Level 3 (88382) Diagnoses Callus between toes L84
[2023-04-28 08:56] VITALS: BP 108/68; PULSE 54; O2SAT 98; BMI 23.0
== END 2023-04-28 09:27 | disposition home or self-care (01) ==
PROVIDERS: PCP Internal Medicine; Visit Provider Physician Assistant Medical
DX: L84 Corns and callosities (principal)
CPT/HCPCS: 99213

== ENCOUNTER 2023-12-08 07:39 | Outpatient (AMB) | payer BC, SELFPAY ==
--- NOTE | 2023-12-08 09:37 | MHC.PC.OV ---
Intake Visit Reasons: f/u discuss meds [phone] Allergies olanzapine [From Zyprexa] Adverse Reaction (Verified 12/08/23 09:44) Rash Medication List - Last Reconciled 12/08/23 by Mercy Santiago MD levonorgestrel (Liletta) intrauterine Tobacco use date assessed: 12/08/23 Dental Screening Dental Screen Date: 12/08/23 Did you have a dental visit in the last 12 months?: Yes Did you have a dental problem in the last 6 months where you did not have access to dental care?: Yes Was dental information given to patient?: Patient has dentist HPI f/u discuss meds [phone] HPI Details 32-year-old lady with PTSD, previously being seen by Psychiatry, here to follow-up on the request for referral to see a different provider and therapist. Patient states that she has also been out of her medications for quite some time now and has been started to get frequent anxiety attacks again. 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 Acute psychosis Surgical History History of appendectomy Family History Mother Family history of cancer tonsil History of squamous cell carcinoma Mental health disorder Maternal Grandfather History of prostate cancer Family/Other History of breast cancer, Onset Age: 60 Social History Household Members: Family Housing: Apartment Do you presently have visiting nurse or other home services: No Alcohol intake: never Comment: would not answer questions Patient Tobacco Use Status: Current everyday Tobacco user Years Smoked: 5 e-Cigarette/Vaping Use: Never Used Second Hand Smoke Exposure: Yes Substance Use Type: Marijuana service: No Current occupational status: employed Sexual orientation: Straight/Heterosexual Cognitive needs: No Hearing needs: No Vision needs: Yes Questionnaire PHQ-9 Over the last 2 weeks, how often have you been bothered by any of the following problems? 1. Little interest or pleasure in doing things: not at all 2. Feeling down, depressed, or hopeless: not at all 3. Trouble falling or staying asleep, or sleeping too much: not at all 4. Feeling tired or having little energy: not at all 5. Poor appetite or overeating: not at all 6. Feeling bad about yourself - or that you are a failure or have let yourself or your family down: not at all 7. Trouble concentrating on things, such as reading the newspaper or watching television: not at all 8. Moving or speaking so slowly that other people could have noticed. Or the opposite - being so fidgety or restless that you have been moving around a lot more than usual: not at all 9. Thoughts that you would be better off or of hurting yourself in some way: not at all Total score: 0 Depression Screening Interpretation: Negative Depression Screening Done: Yes 40305 - PHQ-9 Billing: Yes Source: Developed by Drs. Obdulio Cortes, Jeannette Monson, Jigar Harden and colleagues, with an educational bianca from [employer]. Thrive Questionnaire Date Thrive assessed: 12/08/23 I am a: Patient What is your living situation today?: I have a steady place to live Within the past 12 months, did the food you bought not last and you didn't have the money to get more?: Never true Within the past 12 months, did you worry whether your food would run out before you got money to buy more?: Never true Do you have trouble paying for medicines?: No Do you have trouble getting transportation to medical appointments?: No Do you have trouble paying your heating and electricity bill?: No Do you have trouble taking care of your child, family member or friend?: No Do you have trouble with day-to-day activities such as bathing, preparing meals, shopping, managing finances, etc.?: No Are you currently unemployed and looking for a job?: No Are you interested in more education?: No THRIVE Score: 0 AUDIT C Alcohol Use Questionnaire (AUDIT-C) 1. How often do you have a drink containing alcohol?: Never Total Score: 0 BINA-7 AMB Questionnaire BINA-7 Date BINA - 7 assessed: 12/08/23 Feeling nervous, anxious, or on edge: 1 = Several days Not being able to stop or control worryin = Several days Worrying too much about different things: 1 = Several days Trouble relaxin = Not at all Being so restless that it is hard to sit still: 0 = Not at all Becoming easily annoyed or irritable: 0 = Not at all Feeling afraid as if something awful might happen: 1 = Several days Total BINA-7 score (0-4 normal; 5-9 mild; 10-14 moderate; 15-21 severe): 4 Source: Developed by Drs. Obdulio Cortes, Jeannette Monson, Jigar Harden and colleagues, with an educational bianca from [employer]. BINA-7 Assessment Billing BINA-7 Assessment Tool: BINA-7 Assessment 37999 Review of Systems Const Denies fatigue, Denies headache(s) and Denies weakness ENT Denies dizziness, Denies headache(s) and Denies nasal congestion Card Denies chest pain, Denies lightheadedness, Denies palpitations and Denies dyspnea Resp Denies dyspnea GI Denies abdominal pain, Denies change in bowel habits and Denies heartburn Musc Reports no additional complaints Neuro Denies dizziness, Denies headache(s) and Denies weakness Psych Reports as per HPI Endo Denies fatigue, Denies polydipsia, Denies polyuria and Denies palpitations Aller/Immun Denies seasonal rhinorrhea Physical exam (Primary Care) Tobacco/Smoking Status: Tobacco use Status Tobacco use date assessed 12/08/23 12/08/23 09:40 Patient Tobacco Use Status Current everyday Tobacco 12/08/23 09:40 Tobacco use type 12/07/21 13:32 e-Cigarette/Vaping Use Never Used 12/08/23 09:40 PHQ-9: PHQ-9 Score PHQ-9: Total score 0 12/08/23 09:55 Depression Screening Interpretation: Negative Thrive Assessment: Date of Thrive Assessment Date Thrive assessed 12/08/23 12/08/23 09:41 Assessment and Plan Assessment & Plan (1) PTSD (post-traumatic stress disorder): Comment: previously seen by Dr Danette Fofana Code(s): F43.10 - Post-traumatic stress disorder, unspecified Plan: Will follow-up on referral for getting an appointment with psychiatry and for counseling. Prescription sent for clonidine 0.1 mg per tablet to take 1 tablet twice a day only as needed for acute anxiety attacks. Will hold off on giving her the rest of her medications as she has been off it now for several months, and will leave it to her new psychiatrist to determine what the appropriate treatment is in this case. Reached out to Yuridia, our [facility] to follow-up on the referral to see a new psychiatrist and therapist. Medications: Changed From clonidine HCl 0.1 mg PO BID anxiety To clonidine HCl 0.1 mg PO BID PRN 30 tabs 0RF anxiety Coding Level of Care Code Tele Est Pt Level 4 (49250) Diagnoses PTSD (post-traumatic stress disorder) F43.10 Additional Codes BINA-7 Assessment Billing - BINA-7 Assessment Tool: BINA-7 Assessment 01411 ([id number])
== END 2023-12-08 16:09 | disposition home or self-care (01) ==
PROVIDERS: PCP Internal Medicine; Visit Provider Internal Medicine
DX: F43.10 Post-traumatic stress disorder, unspecified (principal)
CPT/HCPCS: 99214

== ENCOUNTER 2023-12-25 11:22 | Outpatient (AMB) | payer BC, SELFPAY ==
[2023-12-25 11:55] VITALS: BP 104/62; PULSE 76; TEMP 36.6; O2SAT 98
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
== END 2023-12-25 12:30 | disposition home or self-care (01) ==
PROVIDERS: PCP Internal Medicine; Visit Provider Registered Nurse Emergency
DX: S46.819A Strain of other muscles, fascia and tendons at shoulder and upper arm level, unspecified arm, initial encounter (principal)
CPT/HCPCS: 99213

== ENCOUNTER 2024-02-20 11:01 | Outpatient (AMB) | payer BC, SELFPAY ==
[2024-02-20 11:51] VITALS: BP 100/64; PULSE 57; O2SAT 98; BMI 21.6
--- NOTE | 2024-02-20 11:51 | A.OFFPC_ITS ---
Vital Signs 02/20/24 11:51 Height 5 ft 5 in Weight 130 lb BMI 21.6 BP 100/64 Blood Pressure Location Rt brachial Position Sitting Pulse 57 Pulse Source Pulse Oximeter Pulse Oximetry (%) 98 Oxygen Delivery Method Room Air Intake Visit Reasons: Annual physical exam Intake Note: Pt is here today for her PE Allergies olanzapine [From Zyprexa] Adverse Reaction (Verified 02/20/24 12:16) Rash Medication List - Last Reconciled 02/20/24 by Mercy Santiago MD clonidine HCl 0.1 mg PO BID PRN levonorgestrel (Liletta) intrauterine nicotine 1 patch transdermal DAILY sertraline 25 mg PO DAILY Tobacco use date assessed: 02/20/24 Dental Screening Dental Screen Date: 02/20/24 Did you have a dental visit in the last 12 months?: Yes Did you have a dental problem in the last 6 months where you did not have access to dental care?: Yes Was dental information given to patient?: Patient has dentist HPI HPI Comments History of Present Illness Details 33-year-old lady here today for physical exam. She goes to [facility] for routine Pap and pelvic exam, had letter IUD inserted a year ago.. She now sees a different psychiatrist,MALINA GARCÍA for treatment of her anxiety depression, currently on clonidine as needed for acute anxiety attacks and started on sertraline. She sees her monthly and sees her therapist every week. She continues to smoke cigarettes at least 20 cigarettes a day, would like to quit, as she noticed that she is starting to get short of breath on climbing stairs or on moderate exertion. Would like to try again the nicotine patch. 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 Acute psychosis Surgical History History of appendectomy Family History Mother Family history of cancer tonsil History of squamous cell carcinoma Mental health disorder Maternal Grandfather History of prostate cancer Family/Other History of breast cancer, Onset Age: 60 Social History Household Members: Family Housing: Apartment Do you presently have visiting nurse or other home services: No Alcohol intake: never Comment: would not answer questions Patient Tobacco Use Status: Current everyday Tobacco user Years Smoked: 5 e-Cigarette/Vaping Use: Never Used Second Hand Smoke Exposure: Yes Substance Use Type: Marijuana service: No Current occupational status: employed Sexual orientation: Straight/Heterosexual Cognitive needs: No Hearing needs: No Vision needs: Yes Female Reproductive History Menstrual control method: progestin IUCD Questionnaire PHQ-9 Over the last 2 weeks, how often have you been bothered by any of the following problems? 1. Little interest or pleasure in doing things: several days 2. Feeling down, depressed, or hopeless: several days 3. Trouble falling or staying asleep, or sleeping too much: several days 4. Feeling tired or having little energy: several days 5. Poor appetite or overeating: several days 6. Feeling bad about yourself - or that you are a failure or have let yourself or your family down: several days 7. Trouble concentrating on things, such as reading the newspaper or watching television: several days 8. Moving or speaking so slowly that other people could have noticed. Or the opposite - being so fidgety or restless that you have been moving around a lot more than usual: several days 9. Thoughts that you would be better off or of hurting yourself in some way: several days Total score: 9 Depression Screening Interpretation: Positive (Followed by psychiatry, MALINA GARCÍA ) Depression Screening Follow-up: Existing condition, In treatment and Community Mental Health Worker F/U Depression Screening Done: Yes 56707 - PHQ-9 Billing: Yes Source: Developed by Drs. Obdulio Cortes, Jeannette Monson, Jigar Harden and colleagues, with an educational bianca from [employer]. Thrive Questionnaire Date Thrive assessed: 02/20/24 I am a: Patient What is your living situation today?: I have a steady place to live Within the past 12 months, did the food you bought not last and you didn't have the money to get more?: Never true Within the past 12 months, did you worry whether your food would run out before you got money to buy more?: Never true Do you have trouble paying for medicines?: No Do you have trouble getting transportation to medical appointments?: No Do you have trouble paying your heating and electricity bill?: No Do you have trouble taking care of your child, family member or friend?: No Do you have trouble with day-to-day activities such as bathing, preparing meals, shopping, managing finances, etc.?: Yes Are you currently unemployed and looking for a job?: No Are you interested in more education?: No Please select the resources that you would like help with: Housing/Nursing Home Currently or been in a relationship where the following occur: No concerns reported THRIVE Score: 0 AUDIT C Alcohol Use Questionnaire (AUDIT-C) 1. How often do you have a drink containing alcohol?: Monthly or less 2. How many drinks containing alcohol do you have on a typical day when you are drinking?: 1 or 2 3. How often do you have six or more drinks on one occasion?: Never Total Score: 1 BINA-7 AMB Questionnaire BINA-7 Date BINA - 7 assessed: 02/20/24 Feeling nervous, anxious, or on edge: 1 = Several days Not being able to stop or control worryin = Several days Worrying too much about different things: 1 = Several days Trouble relaxin = Several days Being so restless that it is hard to sit still: 3 = Nearly every day Becoming easily annoyed or irritable: 3 = Nearly every day Feeling afraid as if something awful might happen: 0 = Not at all Total BINA-7 score (0-4 normal; 5-9 mild; 10-14 moderate; 15-21 severe): 10 Source: Developed by Drs. Obdulio Cortes, Jeannette Monson, Jigar Harden and colleagues, with an educational bianca from [employer]. BINA-7 Assessment Billing BINA-7 Assessment Tool: BINA-7 Assessment 27732 Review of Systems Const Denies fatigue, Denies headache(s) and Denies weakness Eyes Details: Myopia, requires corrective lens ENT Denies dizziness, Denies headache(s) and Denies nasal congestion Card Denies chest pain, Denies lightheadedness, Denies palpitations and Denies dyspnea Resp Denies dyspnea GI Denies abdominal pain, Denies change in bowel habits and Denies heartburn Details: Goes to [facility] for her routine Pap and pelvic exam, had IUD inserted a year ago Reports no additional complaints Musc Reports no additional complaints Skin/Breast Denies breast skin changes, Denies breast pain, Denies breast mass and Denies rash Neuro Denies dizziness, Denies headache(s) and Denies weakness Psych Reports as per HPI Endo Denies fatigue, Denies polydipsia, Denies polyuria and Denies palpitations Roberth/Lymph Reports no additional complaints Aller/Immun Denies seasonal rhinorrhea Physical exam (Primary Care) Vital Signs: Last Vital Signs Pulse 57 02/20/24 11:51 BP 100/64 02/20/24 11:51 Pulse Ox 98 02/20/24 11:51 Oxygen Delivery Method Room Air 02/20/24 11:51 BMI result Body Mass Index 21.6 Tobacco/Smoking Status: Tobacco use Status Tobacco use date assessed 02/20/24 02/20/24 11:54 Patient Tobacco Use Status Current everyday Tobacco 02/20/24 11:52 Tobacco use type 12/25/23 11:20 e-Cigarette/Vaping Use Never Used 02/20/24 11:52 PHQ-9: PHQ-9 Score PHQ-9: Total score 9 02/20/24 12:40 Depression Screening Interpretation: Positive (Followed by psychiatryMALINA ) Depression Screening Follow-up: Existing condition, In treatment and Community Mental Health Worker F/U Thrive Assessment: Date of Thrive Assessment Date Thrive assessed 02/20/24 02/20/24 11:52 Currently or been in a relationship where the following occur: No concerns reported Const General: comfortable, no acute distress and alert Orientation/consciousness: patient oriented x3 HENMT Ears: external ears normal General nose exam: Normal external nose present and No nasal discharge present Mouth: Normal oral and palatal mucosa present, oropharynx normal and moist mucous membranes Teeth and gingiva: poor dentition Eyes General: appearance normal, both eyes and all related structures Conjunctivae: conjunctivae normal Sclerae: sclerae normal Pupils: Equal, round and reactive pupils present EOM: EOMs intact bilaterally Neck Neck: Yes full ROM, Yes no lymphadenopathy and Yes supple Chest Breast/axilla palpation: normal palpation of the breasts Resp Effort & Inspection: normal respiratory effort and able to speak in complete sentences Auscultation: clear to auscultation bilaterally Cardio Rate: regular rate Rhythm: regular rhythm Heart sounds: S1 normal heart sound present and S2 normal heart sound present GI Palpation (GI): Soft to palpation, nontender and no masses Auscultation: normal bowel sounds General: Yes no CVA tenderness Back/Spine/Pelvis Back: no CVA tenderness and No back tenderness Skin General skin exam: no rashes or lesions noted Neuro General: patient oriented x3, gait normal, tone normal and moves all extremities Cranial nerves: Yes Equal, round and reactive pupils present Cognition (Neuro): normal cognition Extrem General: Yes full ROM, Yes no joint enlargement, Yes no clubbing, cyanosis or edema and Yes no calf tenderness Psych Appearance: grossly normal and well kempt Mental Status: mental status grossly normal Speech and movement: Normal speech and movement present Affect: normal affect Attitude: cooperative Thought process: Normal thought process present Assessment and Plan Assessment & Plan (1) Annual visit for general adult medical examination with abnormal findings: Code(s): Z00.01 - Encounter for general adult medical examination with abnormal findings Plan: Will check appropriate labs. Continue regular dental visit every 6 months and regular eye exams, at least every 2 years. Take adequate calcium in diet and vitamin-D 3 at 2000 IU per cap once a day, in addition to weight-bearing exercises to help maintain good muscle tone and weight control. Instructed to do self-breast exam, and recommended to get yearly mammogram, starting at age 40. Patient does not want to get flu shot, has had only 1 COVID vaccine but does not want to get the booster, up-to-date with her Tdap. . She has an IUD inserted [facility] where she also gets her routine cervical cancer screening and pelvic exam (2) PTSD (post-traumatic stress disorder): Comment: previously seen by Dr Danette Fofana Code(s): F43.10 - Post-traumatic stress disorder, unspecified Plan: Currently on sertraline and clonidine, followed by psychiatry insert smoking (3) Cigarette smoker motivated to quit: Code(s): F17.210 - Nicotine dependence, cigarettes, uncomplicated Plan: Discussed options for smoking cessation with medications. Pt wishes to try Nicoderm patch. Pt advised to apply the nicotine patch as directed on cigarette quit day. Discussed common side effects and strongly advised not to smoke while using the patch. If developes any adverse effects please call office. Follow up in office 4 weeks.Discussed side effects including but not limited to local erythema, weird dreams, advised to remove patch before bedtime, rash, diarrhea, and insomnia., , (4) Encounter for annual physical exam: Code(s): Z00.00 - Encounter for general adult medical examination without abnormal findings Medications: New nicotine 1 patch transdermal DAILY 28 ea 0RF Coding Level of Care Code Est Pt Prev Care 18-39y(16501) Diagnoses Annual visit for general adult medical examination with abnormal findings Z00.01 PTSD (post-traumatic stress disorder) F43.10 Cigarette smoker motivated to quit F17.210 Encounter for annual physical exam Z00.00 Additional Codes BINA-7 Assessment Billing - BINA-7 Assessment Tool: BINA-7 Assessment 71909 ([id number])
== END 2024-02-20 13:28 | disposition home or self-care (01) ==
PROVIDERS: PCP Internal Medicine; Visit Provider Internal Medicine
DX: Z00.00 Encounter for general adult medical examination without abnormal findings (principal); F43.10 Post-traumatic stress disorder, unspecified; F17.210 Nicotine dependence, cigarettes, uncomplicated
CPT/HCPCS: 99395

== ENCOUNTER 2024-03-22 09:39 | Outpatient (AMB) | payer BC, SELFPAY ==
--- NOTE | 2024-03-22 09:37 | MHC.PC.OV ---
Intake Visit Reasons: 4WK F/U Iphone [phone] nicotine patch Intake Note: Pt is having a telehealth visit 4 wks f/u nicotine patch Allergies olanzapine [From Zyprexa] Adverse Reaction (Verified 03/22/24 09:56) Rash Medication List - Last Reconciled 03/22/24 by Mercy Santiago MD clonidine HCl 0.1 mg PO TID PRN levonorgestrel (Liletta) intrauterine nicotine 1 patch transdermal DAILY sertraline 25 mg PO DAILY Tobacco use date assessed: 03/22/24 Dental Screening Dental Screen Date: 03/22/24 Did you have a dental visit in the last 12 months?: Yes Did you have a dental problem in the last 6 months where you did not have access to dental care?: Yes Was dental information given to patient?: Patient has dentist HPI 4WK F/U Iphone [phone] nicotine patch HPI Details 33-year-old lady here today for follow-up after starting nicotine patch of proximally 4 weeks ago to help with quitting smoking. She previously was smoking 1 pack a day prior to starting the patch, has been using it as directed, denies any side effects from the nicotine patch. Has not been smoking since she started using it. Would like to continue on the same dose at present. 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 Acute psychosis Surgical History History of appendectomy Family History Mother Family history of cancer tonsil History of squamous cell carcinoma Mental health disorder Maternal Grandfather History of prostate cancer Family/Other History of breast cancer, Onset Age: 60 Social History Household Members: Family Housing: Apartment Do you presently have visiting nurse or other home services: No Alcohol intake: never Comment: would not answer questions Patient Tobacco Use Status: Former Tobacco user Years Smoked: 5 e-Cigarette/Vaping Use: Never Used Second Hand Smoke Exposure: Yes Substance Use Type: Marijuana service: No Current occupational status: employed Sexual orientation: Straight/Heterosexual Cognitive needs: No Hearing needs: No Vision needs: Yes Questionnaire PHQ-9 Over the last 2 weeks, how often have you been bothered by any of the following problems? 1. Little interest or pleasure in doing things: several days 2. Feeling down, depressed, or hopeless: several days 3. Trouble falling or staying asleep, or sleeping too much: several days 4. Feeling tired or having little energy: several days 5. Poor appetite or overeating: several days 6. Feeling bad about yourself - or that you are a failure or have let yourself or your family down: several days 7. Trouble concentrating on things, such as reading the newspaper or watching television: several days 8. Moving or speaking so slowly that other people could have noticed. Or the opposite - being so fidgety or restless that you have been moving around a lot more than usual: several days 9. Thoughts that you would be better off or of hurting yourself in some way: several days Total score: 9 Source: Developed by Drs. Obdulio Cortes, Jeannette Monson, Jigar Harden and colleagues, with an educational bianca from [employer]. Thrive Questionnaire Date Thrive assessed: 02/20/24 I am a: Patient What is your living situation today?: I have a steady place to live Within the past 12 months, did the food you bought not last and you didn't have the money to get more?: Never true Within the past 12 months, did you worry whether your food would run out before you got money to buy more?: Never true Do you have trouble paying for medicines?: No Do you have trouble getting transportation to medical appointments?: No Do you have trouble paying your heating and electricity bill?: No Do you have trouble taking care of your child, family member or friend?: No Do you have trouble with day-to-day activities such as bathing, preparing meals, shopping, managing finances, etc.?: Yes Are you currently unemployed and looking for a job?: No Are you interested in more education?: No Please select the resources that you would like help with: None Currently or been in a relationship where the following occur: No concerns reported THRIVE Score: 0 AUDIT C Alcohol Use Questionnaire (AUDIT-C) 1. How often do you have a drink containing alcohol?: Monthly or less 2. How many drinks containing alcohol do you have on a typical day when you are drinking?: 1 or 2 3. How often do you have six or more drinks on one occasion?: Never Total Score: 1 BINA-7 AMB Questionnaire BINA-7 Date BINA - 7 assessed: 02/20/24 Feeling nervous, anxious, or on edge: 1 = Several days Not being able to stop or control worryin = Several days Worrying too much about different things: 1 = Several days Trouble relaxin = Several days Being so restless that it is hard to sit still: 3 = Nearly every day Becoming easily annoyed or irritable: 3 = Nearly every day Feeling afraid as if something awful might happen: 0 = Not at all Total BINA-7 score (0-4 normal; 5-9 mild; 10-14 moderate; 15-21 severe): 10 Source: Developed by Drs. Obdulio Cortes, Jeannette Monson, Jigar Harden and colleagues, with an educational bianca from [employer]. Review of Systems Const Denies fatigue, Denies headache(s) and Denies weakness Eyes Details: Myopia, requires corrective lens ENT Denies dizziness, Denies headache(s) and Denies nasal congestion Card Denies chest pain, Denies lightheadedness, Denies palpitations and Denies dyspnea Resp Denies dyspnea GI Denies abdominal pain, Denies change in bowel habits and Denies heartburn Details: Goes to [facility] for her routine Pap and pelvic exam, had IUD inserted a year ago Reports no additional complaints Musc Reports no additional complaints Skin/Breast Denies breast skin changes, Denies breast pain, Denies breast mass and Denies rash Neuro Denies dizziness, Denies headache(s) and Denies weakness Endo Denies fatigue, Denies polydipsia, Denies polyuria and Denies palpitations Roberth/Lymph Reports no additional complaints Aller/Immun Denies seasonal rhinorrhea Physical exam (Primary Care) Tobacco/Smoking Status: Tobacco use Status Tobacco use date assessed 09/06/24 09/06/24 09:39 Patient Tobacco Use Status Former Tobacco user 03/22/24 09:39 Tobacco use type 12/25/23 11:20 e-Cigarette/Vaping Use Never Used 03/22/24 09:39 PHQ-9: PHQ-9 Score PHQ-9: Total score 9 03/22/24 10:03 Thrive Assessment: Date of Thrive Assessment Date Thrive assessed 02/20/24 03/22/24 09:39 Currently or been in a relationship where the following occur: No concerns reported Telehealth Telehealth Telehealth Platform: [employer] Location of provider rendering services: practice address Location of patient: address on file Patient Identification confirmed using: Name, : Yes Telehealth method: video Patient verbally consented to treatment: Yes Patient verbally consented to billing insurance company: Yes Patient informed of any privacy concerns related to visit: Yes Minutes spent on Phone/Video with Pt.: 15 Assessment and Plan Assessment & Plan (1) Encounter for smoking cessation counseling: Code(s): Z71.6 - Tobacco abuse counseling (2) Cigarette smoker motivated to quit: Code(s): F17.210 - Nicotine dependence, cigarettes, uncomplicated Plan Currently on her 4th week of the nicotine patch at 21 mg per patch. Has not been smoking since she started patches. Denies any adverse reactions from using it, except for some occasional itching. Has been rotating sites as directed. Would like to continue on the same dose for another month. Advised to send message in the portal, when ready to go down on her dose of nicotine patch to 14 mg. Medications: Refilled nicotine 1 patch transdermal DAILY 28 ea 0RF Coding Level of Care Code Tele Est Pt Level 3 (03032) Diagnoses Encounter for smoking cessation counseling Z71.6 Cigarette smoker motivated to quit F17.210
== END 2024-03-22 11:17 | disposition home or self-care (01) ==
LOC: HO.HMGC 09:39
PROVIDERS: PCP Internal Medicine; Visit Provider Internal Medicine
DX: F17.210 Nicotine dependence, cigarettes, uncomplicated (principal); Z71.6 Tobacco abuse counseling
CPT/HCPCS: 99213

== ENCOUNTER 2024-05-03 10:07 | Outpatient (AMB) | payer BC, SELFPAY ==
--- NOTE | 2024-05-03 10:23 | MHC.OFFWIV ---
Intake Vital Signs 05/03/24 10:26 Weight 133 lb BP 108/66 Blood Pressure Location Lt brachial Position Sitting Pulse 59 Pulse Source Pulse Oximeter Pulse Oximetry (%) 99 Oxygen Delivery Method Room Air Intake Visit Reasons: EP LT wrist lump Patient Tobacco Use Status: Former Tobacco user Allergies olanzapine [From Zyprexa] Adverse Reaction (Verified 05/03/24 10:26) Rash Medication List - Last Reconciled 05/03/24 by Bonifacio Moore MD bupropion HCl XL 150 mg PO DAILY clonidine HCl 0.1 mg PO TID PRN levonorgestrel (Liletta) intrauterine nicotine 1 patch transdermal DAILY sertraline 25 mg PO DAILY Do you need a note to return to daycare/school/sports/work: No HPI EP LT wrist lump HPI Details Patient is 33-year-old female came in today to be evaluated for small lump she noticed left wrist volar aspect 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 However she does not play video games or use hand for extra activities On examination patient have a very small about the size of Pea ganglion cyst radial aspect wrist Which is nontender no signs of infection or inflammation Management discussed with the patient, Erasmo wrap few days for slight pressure and try not to use the wrist too much If it gets bigger or painful patient is to get back to us or primary care [facility] Medical History Encounter for smoking cessation counseling Pain, joint, knee, left Cigarette smoker motivated to quit Nodule of skin of neck Remove/insert IUD PTSD (post-traumatic stress disorder) 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 Acute psychosis Surgical History History of appendectomy Family History Mother Family history of cancer tonsil History of squamous cell carcinoma Mental health disorder Maternal Grandfather History of prostate cancer Family/Other History of breast cancer, Onset Age: 60 Social History Household Members: Family Housing: Apartment Do you presently have visiting nurse or other home services: No Alcohol intake: never Comment: would not answer questions Patient Tobacco Use Status: Former Tobacco user Years Smoked: 5 e-Cigarette/Vaping Use: Never Used Second Hand Smoke Exposure: Yes Substance Use Type: Marijuana service: No Current occupational status: employed Sexual orientation: Straight/Heterosexual Cognitive needs: No Hearing needs: No Vision needs: Yes Review of Systems Const All systems reviewed & are unremarkable except as noted in HPI and below Physical Exam Vital Signs: Last Vital Signs Pulse 59 05/03/24 10:26 BP 108/66 05/03/24 10:26 Pulse Ox 99 05/03/24 10:26 Oxygen Delivery Method Room Air 05/03/24 10:26 Const General: no acute distress Orientation/consciousness: patient oriented x3 Eyes General: appearance normal, both eyes and all related structures Resp Effort & Inspection: normal respiratory effort and able to speak in complete sentences Neuro General: patient oriented x3 Extrem Hand/finger images: 1. 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
[2024-05-03 10:26] VITALS: BP 108/66; PULSE 59; O2SAT 99
== END 2024-05-03 10:36 | disposition home or self-care (01) ==
PROVIDERS: PCP Internal Medicine; Visit Provider Internal Medicine
DX: M67.432 Ganglion, left wrist (principal)

== ENCOUNTER → 2024-05-03 10:07 | Outpatient (BNVA) | payer BC, SELFPAY | PROVIDERS: PCP Internal Medicine ==

== ENCOUNTER 2024-12-31 18:02 | Inpatient (IN) | payer BC, SELFPAY ==
--- NOTE | ~2024-12-31 | XR_ITS ---
EXAMINATION: XR HAND 3 OR MORE VIEWS RIGHT HISTORY: red, painful, bruises on R thumb COMPARISON: Comparison is made with the prior examination dated 01/16/2025. FINDINGS: Three views of the right hand are submitted. Osseous mineralization is normal. There is no fracture or dislocation. The joint spaces are preserved. The soft tissues are unremarkable. XR/XR hand RT min 3V IMPRESSION: Unremarkable examination of the right hand. Electronically signed by: Obdulio Tolbert MD 01/30/2025 07:56 AM EDT
--- NOTE | ~2024-12-31 | CT_ITS ---
CLINICAL HISTORY: fall CT head without contrast Comparison: None provided Findings: No intra-axial mass, midline shift, hydrocephalus, or acute hemorrhage. No significant atrophy-like change or white matter disease. The visualized paranasal sinuses and mastoid air cells are normal. The orbits are unremarkable. There is no acute fracture. IMPRESSION: 1. No acute intracranial findings. This document has been electronically signed by: Velia Siegel MD on 01/25/2025 08:29:56
--- NOTE | ~2024-12-31 | XR_ITS ---
EXAMINATION: XR HAND, RIGHT CLINICAL INFORMATION: punching beard, restricted ROM, pain COMPARISON: None available. TECHNIQUE: PA, lateral, and oblique views of the right hand. FINDINGS: The bones and soft tissues are normal. No fracture. Alignment is anatomic. Joint spaces are maintained. No erosions or soft tissue calcifications. XR/XR hand RT min 3V IMPRESSION: Unremarkable right hand Electronically signed by: Casa Rush MD 01/16/2025 11:46 AM EDT
--- NOTE | 2024-12-31 18:37 | ED_ITS ---
HPI - General Adult General Chief complaint: Psychiatric Symptoms Stated complaint: Not sleeping well Time Seen by Provider: 12/31/24 18:55 Source: patient, family, RN notes reviewed and old records reviewed Mode of arrival: ambulatory Limitations: other (manic, difficulty answering questions directly) History of Present Illness ED Provider: Dr. Dalila Alvarenga HPI narrative: 34-year-old female with history of PTSD and ADHD on Adderall presenting with hyperactivity, paranoia, insomnia ongoing for the last several days. She has a history of misusing her Adderall. Patient is unable to give much history secondary to her manic behavior. She is pacing around the room, unable to focus or answer questions directly. Patient's mother and boyfriend are at bedside. Family reports they have noticed a change in her behavior since restarting Adderall about 6 months ago. Mother reports this is similar to previous episodes of psychosis in the setting of misusing Adderall, requiring hospitalization in 2020. Patient endorses marijuana use. Denies other illicit substance use. Denies alcohol use. Related Data Home Medications ?Medication ?Instructions ?Recorded ?Confirmed clonidine HCl 0.2 mg tablet 0.2 mg PO TID PRN Anxiety 12/31/24 12/31/24 Previous Rx's ?Medication ?Instructions ?Recorded nicotine 14 mg/24 hr daily 1 patch transdermal DAILY # 14 ea 04/18/24 transdermal patch Allergies Allergy/AdvReac Type Severity Reaction Status Date / Time olanzapine (From Zyprexa) AdvReac Rash Verified 12/31/24 18:41 Review of Systems 2 Review of Systems: Yes Unobtainable due to mental status (sylwia) [facility] Past Medical History Source: old records reviewed, obtained from family (PTSD history, previous admissions for sylwia/psychosis) and nursing notes reviewed Medical History Encounter for smoking cessation counseling Pain, joint, knee, left Cigarette smoker motivated to quit Nodule of skin of neck Remove/insert IUD PTSD (post-traumatic stress disorder) 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 Acute psychosis Surgical History History of appendectomy Family History Family History Mother Family history of cancer tonsil History of squamous cell carcinoma Mental health disorder Maternal Grandfather History of prostate cancer Family/Other History of breast cancer, Onset Age: 60 Social History Social History Household Members: Family Housing: Apartment Do you presently have visiting nurse or other home services: No Alcohol intake: never Comment: would not answer questions Patient Tobacco Use Status: Former Tobacco user Years Smoked: 5 Smoked in Last 30 Days: Yes e-Cigarette/Vaping Use: Never Used Second Hand Smoke Exposure: Yes Substance Use Type: Marijuana Advance Directives: No Advance Directives Information Provided: No Do you have a plan to hurt others: No Plan service: No Current occupational status: employed Sexual orientation: Straight/Heterosexual Cognitive needs: No Hearing needs: No Vision needs: Yes Physical Exam ED Vital Signs: Vital Signs - 24 hr 01/01/25 20:03 01/01/25 20:08 01/02/25 03:20 Temperature 98.6 F 98.4 F Pulse Rate 86 74 Respiratory Rate 16 16 Blood Pressure 117/66 117/66 112/64 Pulse Oximetry 100 99 Oxygen Delivery Method Room Air Room Air 01/02/25 09:13 Temperature 97.7 F Pulse Rate 72 Respiratory Rate 14 Blood Pressure 104/70 Pulse Oximetry 100 Oxygen Delivery Method Room Air BMI result Body Mass Index 24.9 GENERAL: Anxious, agitated, poorly controlled movements. SKIN: Normal skin color for ethnicity, warm,no rashes noted. HEENT: Normocephalic, atraumatic, no stridor, posterior oropharynx nonerythematous, dry mucous membranes, EOMI. NECK: Soft, supple, full ROM, midline structures nontender, no step-offs, no deformities, no lymphadenopathy. CHEST: Heart regular tachycardia, no murmurs, symmetric chest rise and fall, no crepitus. PULMONARY: Clear to auscultation bilaterally, no labored breathing, no wheezes/rhales/rhonchi. ABDOMINAL: Soft, nondistended, nontender, quiet bowel sounds in all quadrants. : Deferred. MUSCULOSKELETAL: Normal tone, full range of motion, no deformities, no peripheral edema. NEURO: Alert and oriented to person, CN II through XII intact, equal strength and sensation bilateral upper and lower extremities, no focal neurologic deficits. PSYCHIATRIC: Anxious affect, agitated, tangential speech, poor eye contact and psychomotor agitation. Course Course Course Narrative: RME, this is a rapid medical exam performed by Brian Guerra please refer to primary provider for complete H&P- 34 year old female presents for evaluation of insomnia, paranoia. She denies SI. She has been seen in the past for acute psychosis and this feels similar but less severe Reevaluation(s) Reevaluation #1: Time: 06:53 Date: 01/01/25 Provider: Maurisio Augustin MD Patient in physician observation for psychiatric evaluation.? No acute events reported overnight. No current complaints. VS stable.? Patient is in bed search status/pending CARE team evaluation. Will continue to monitor. Reevaluation #2: Time: 08:33 Date: 01/02/25 Provider: Maurisio Augustin MD Patient in physician observation for psychiatric evaluation.? No acute events reported overnight. No current complaints. VS stable.? Patient is in bed search status/pending CARE team evaluation. Will continue to monitor. Reevaluation #3: 01/02/2026 2:[address] AUGUSTIN PATIENT WILL BE ADMITTED TO THE PSYCHIATRIC UNIT THIS WILL END THE EMERGENCY DEPARTMENT OBSERVATION STATUS Time: 14:42 Medications Administered Generic Name Dose Route Start Last Admin Trade Name Freq PRN Reason Stop Dose Admin Clonidine HCl 0.2 mg 01/01/25 00:08 01/01/25 20:03 Clonidine Hcl 0.2 Mg Tablet PO 0.2 mg TID PRN Administration Anxiety Protocol Nicotine 14 mg 01/01/25 09:00 01/02/25 09:13 Nicotine 14 Mg Patch.Td24 TRANSDERMA 14 mg DAILY VERONICA Administration Risperidone 1 mg 01/01/25 21:00 01/02/25 09:13 Risperidone 1 Mg Tablet PO 1 mg BID VERONICA Administration Discontinued Medications Generic Name Dose Route Start Last Admin Trade Name Freq PRN Reason Stop Dose Admin Lorazepam 1 mg 01/01/25 12:09 01/01/25 12:17 Lorazepam 1 Mg Tablet PO 01/01/25 12:10 1 mg ONCE ONE Administration Lorazepam 2 mg 01/02/25 03:18 01/02/25 03:20 Lorazepam 1 Mg Tablet PO 01/02/25 03:19 2 mg ONCE ONE Administration Medical Decision Making Medical Decision Making MDM Narrative: Patient presents with psychological complaints. Differential diagnosis includes suicidal ideations, homicidal ideations, depression, anxiety, mood disorder, decompensated mental illnesses such as schizophrenia or bipolar disorder, medication noncompliance, among many others. Medical clearance protocol was initiated. 2:00 a.m.: Signing out to oncoming provider pending crisis re-evaluation and final disposition. Patient has been placed on a section 12 for her safety. She will require evaluation in the morning. Differential Diagnosis See above Admission/Observation Consideration of admission/observation: Escalation of care including admission/observation considered Consult Healthcare Provider Management of the patient was discussed with: Behavioral Health Provider Lab Data [facility] Lab Attestation statement: I reviewed the patient's lab results. 12/31/24 18:53 12/31/24 18:54 Labs: Lab Results 12/31/24 12/31/24 12/31/24 Range/Units 18:53 18:54 20:53 WBC 10.3 (4.8-10.8) X10*3/uL RBC 4.33 (4.20-5.50) X10*6/uL Hgb 14.1 (12.0-16.0) g/dl Hct 39.9 (37.0-47.0) % MCV 92.1 (80.0-98.0) fL MCH 32.6 (27.0-33.0) pg MCHC 35.3 H (31.0-35.0) g/dl RDW 12.0 (11.0-16.0) % Plt Count 248 (160-400) X10*3/uL MPV 9.5 (9.4-12.3) fL Immature Gran % (Auto) 0.4 (0.0-0.4) % Neut % (Auto) 79.8 H (45-73) % Lymph % (Auto) 16.3 L (20-40) % Weld % (Auto) 3.4 (2-11) % Eos % (Auto) 0.0 (0-4) % Baso % (Auto) 0.1 (0-2) % Lymph # (Auto) 1.7 (1.2-4.9) X10*3/uL Weld # (Auto) 0.4 (0.1-1.2) X10*3/uL Eos # (Auto) 0.0 (0.0-0.4) X10*3/uL Baso # (Auto) 0.0 (0.0-0.2) X10*3/uL Abs Immat Gran (auto) 0.04 H (0.00-0.03) X10*3/uL Absolute Neuts (auto) 8.2 (2.0-8.3) x10*3/uL Absolute Nucleated RBC 0.000 (0.0-0.012) X10*3/uL Nucleated RBC % (auto) 0.0 (0.0-0.2) /100WBC Sodium 140 (135-145) mmol/L Potassium 3.8 (3.3-5.1) mmol/L Chloride 111 H (96-108) mmol/L Carbon Dioxide 23 (22-29) mmol/L Anion Gap 10 L (12-20) BUN 11 (9-16) mg/dL Creatinine 0.61 (0.5-1.4) mg/dL Estim Creat Clear Calc 122.4 Estimated GFR > 60 Random Glucose 118 H (60-115) mg/dL Calcium 9.7 (8.4-10.2) mg/dL Total Bilirubin 1.0 (0.0-1.0) mg/dL AST 18 (5-31) U/L ALT 12 (0-31) U/L Alkaline Phosphatase 63 (39-117) U/L Total Protein 7.4 (6.5-8.0) g/dL Albumin 5.0 (3.5-5.0) g/dL Urine Color Dark Yellow Urine Appearance Cloudy Urine pH 5.0 (5.0-9.0) Ur Specific [place] >= 1.030 H (1.005-1.025) Urine Protein 100 (2+) H (Neg-Trace) mg/dL Urine Glucose (UA) Negative (Negative) mg/dL Urine Ketones 15 (Negative) mg/dL Urine Blood Negative (Negative) Urine Nitrite Negative (Negative) Ur Leukocyte Esterase Small (1+) H (Negative) Urine RBC 0-2 (0-2) /HPF Urine WBC 0-5 (0-5) /HPF Ur Squamous Epith Cells >20 (0-2) /HPF Urine Bacteria 4+ (None Seen) Hyaline Casts 3-5 (0-2) /LPF Urine Test NEGATIVE (NEGATIVE) Salicylates < 5.0 L (15-30) mg/dL Urine Opiates Screen Not Detected (Not Detect) Ur Buprenorphine Scrn Not Detected (Not Detect) ng/mL Ur Oxycodone Screen Not Detected (Not Detect) ng/mL Urine Methadone Screen Not Detected (Not Detect) ng/mL Urine Fentanyl Screen Not Detected (Not Detect) Acetaminophen < 3 (<30) mcg/mL Ur Barbiturates Screen Not Detected (Not Detect) Ur Phencyclidine Scrn Not Detected (Not Detect) Ur Amphetamines Screen POSITIVE H (Not Detect) U Benzodiazepines Scrn Not Detected (Not Detect) Urine Cocaine Screen Not Detected (Not Detect) U Marijuana (THC) Screen POSITIVE H (Not Detect) Ethyl Alcohol < 10 mg/dL External Record Review External record reviewed: Inpatient record Discharge Plan Discharge Clinical Impression: Posttraumatic stress disorder Depression Qualifiers: Depression Type: major depressive disorder Major depression recurrence: u nspecified whether recurrent Active/Remission status: remission status unspecified Qualified Code(s): F32.9 - Major depressive disorder, single episode, unspecified Altered mental status, unspecified Qualifiers: Altered mental status type: disorientation Qualified Code(s): R41.0 - Disorientation, unspecified Psychosis Qualifiers: Psychosis type: unspecified psychosis type Qualified Code(s): F29 - Unspecified psychosis not due to a substance or known physiological condition Patient Disposition: Admitted As Inpatient Interventions: Admission Worksheet (ED) Last Done: 01/02/25 15:10 Discharge Date/Time: 01/02/25 15:15
[2024-12-31 18:39] VITALS: BP 141/75; PULSE 110; RESP 16; TEMP 36.4; O2SAT 95; BMI 24.9
[2024-12-31 18:58] LABS: MANUAL DIFF FLAG NO
[2024-12-31 18:59] LABS: Hematocrit 39.9 % (37.0-47.0); Hemoglobin 14.1 g/dl (12.0-16.0); Imm Gran Abs Auto 0.04 X10*3/uL (0.00-0.03); Imm Gran Pct Auto 0.4 % (0.0-0.4); Lymphocytes Absolute Auto 1.7 X10*3/uL (1.2-4.9); Mean Corpuscular HGB Conc 35.3 g/dl (31.0-35.0); Mean Corpuscular Hemoglobin 32.6 pg (27.0-33.0); Mean Corpuscular Volume 92.1 fL (80.0-98.0); NRBC Abs Auto 0.000 X10*3/uL (0.0-0.012); NRBC Pct Auto 0.0 /100WBC (0.0-0.2); Platelet Count 248 X10*3/uL (160-400); Red Blood Count 4.33 X10*6/uL (4.20-5.50); White Blood Count 10.3 X10*3/uL (4.8-10.8)
[2024-12-31 19:19] LABS: Alanine Aminotransferase 12 U/L (0-31); Albumin Level 5.0 g/dL (3.5-5.0); Alkaline Phosphatase 63 U/L (39-117); Anion Gap 10 (12-20); Aspartate Amino Transferase 18 U/L (5-31); Blood Urea Nitrogen 11 mg/dL (9-16); Calcium 9.7 mg/dL (8.4-10.2); Carbon Dioxide 23 mmol/L (22-29); Chloride 111 mmol/L (96-108); Creatinine Clr Calc Pharmacy 122.4; Estimated Glomerular Filt Rate > 60; Potassium 3.8 mmol/L (3.3-5.1); Sodium 140 mmol/L (135-145); Total Protein 7.4 g/dL (6.5-8.0)
[2024-12-31 19:19] LABS: Acetaminophen LAB < 3 mcg/mL (<30); Salicylate < 5.0 mg/dL (15-30)
[2024-12-31 21:03] LABS: Appearance Urine Cloudy; Glucose Urine UA Negative (Negative); PH 5.0 (5.0-9.0); Specific Gravity - Urine >= 1.030 (1.005-1.025); UMIC TRIGGER UA YES; UPreg QC Valid YES
[2024-12-31 21:17] LABS: Cannabinoid Screen Urine POSITIVE (Not Detect)
--- NOTE | 2025-01-01 | ECG_ITS ---
Test Reason : QTC CHECK Blood Pressure : */* mmHG Vent. Rate : 92 BPM Atrial Rate : 92 BPM P-R Int : 120 ms QRS Dur : 88 ms QT Int : 376 ms P-R-T Axes : 77 61 57 degrees QTcB Int : 464 ms Normal sinus rhythm Normal ECG When compared with ECG of 25-Mar-2023 14:32, Vent. rate has increased by 50 bpm QT has lengthened Referred By: Boo Burns Electronically Signed By: Artur Pierre
[2025-01-01 00:35] VITALS: BP 128/58
[2025-01-01 00:36] VITALS: BP 128/58; PULSE 76; RESP 16; TEMP 36.8; O2SAT 98
[2025-01-01] MEDS: Nicotine 14 MG PATCH.TD24 TRANSDERMA (06:44)
--- NOTE | 2025-01-01 07:19 | PC.NURSE ---
Care of Pt assumed at change of shift. Pt is observed on the phone several times this AM. Pt paces about the unit and expresses agitation with staff. She states she has questions that staff will not address for her, however she states she will not disclose what those questions are at this time. This RN spent several minutes with Pt reviewing her medical work up and explaining that she will have a Care Team follow up this AM. Pt demonstrates understanding of this information however continues to express her concern for the questions she has. Pt encouraged to eat breakfast while she waits for her follow up assessment. Pt can be seen eating small amounts of food. Pt offered a shower to which she declines. Pt continues to pace within her room and uses the Pt phone. She is observed having intermittent episodes of crying. Pt is medically stable at this time; NAD. Awaiting Care Team assessment.
--- NOTE | 2025-01-01 07:23 | MHC.EDTECH ---
This tech heard patient crying in BH6. This tech offered tissue to patient. Patient questioning why I entered her room. I wasn't crying loud, you shouldn't have heard me. Are you supposed to check on me when I'm crying? This tech explained I was just offering you tissue because I thought it was a kind thing to do. Patient engaged in conversation with this tech regarding being confused and that the patient has papers I've been holding on to since I got here that I need to show someone. Patient would not show this tech. Patient requesting mother and boyfriend at bedside. Patent fixating on paperwork and needing help . Patient was made aware of visiting hours and that she that she can use the phone at anytime.
--- NOTE | 2025-01-01 08:51 | PC.NURSE ---
Pt has visitors this AM (mother and boyfriend.) Care Team Mike at bedside for follow up assessment at this time---mother and boyfriend present.
[2025-01-01 14:21] VITALS: BP 123/60; PULSE 102; RESP 16; TEMP 36.9; O2SAT 97
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
--- NOTE | 2025-01-01 16:11 | PC.NURSE ---
Psychiatrist at bedside for eval.
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
--- NOTE | 2025-01-01 16:34 | MHC.CARE ---
Pt was seen by the CARE Team earlier today for a mental status update. It was decided to consult psychiatry to determine an appropriate disposition as Pt expressed not wanting to pursue an inpatient admission. Svetlana Harper NP met with Pt and has determined that Pt meets criteria for inpatient level of care at this time as Pt presents as significantly disorganized. Admission/bedsearch team has been made aware.
--- NOTE | 2025-01-01 17:59 | PC.NURSE ---
Pt requests to take a shower. Supplies and new clothing provided.
[2025-01-01 20:03] VITALS: BP 117/66
[2025-01-01 20:08] VITALS: BP 117/66; PULSE 86; RESP 16; TEMP 37; O2SAT 100
[2025-01-02 03:20] VITALS: BP 112/64; PULSE 74; RESP 16; TEMP 36.9; O2SAT 99
[2025-01-02 09:13] VITALS: BP 104/70; PULSE 72; RESP 14; TEMP 36.5; O2SAT 100
[2025-01-02] MEDS: Nicotine 14 MG PATCH.TD24 TRANSDERMA (09:13)
[2025-01-02 15:31] VITALS: BMI 18.3
[2025-01-02 15:37] VITALS: BP 113/56; PULSE 104; RESP 16; TEMP 36.4; O2SAT 97
[2025-01-02 15:38] VITALS: BMI 18.2
--- NOTE | 2025-01-02 16:44 | PC.ADMIT ---
Nursing admission note: 34 year old female DX: PTSD unspecified, Altered mental status unspecified. Referred by CARE team for admission. Signed CV for admission. Patients mother and boyfriend brought patient to ED due to poor sleep x3 days and difficulty focusing. Patient admitted to recent misuse of Adderall and acids . Patient engaged easily, calm and cooperative during admission assessment. A+O x3, is currently unclear why she is here however does states I think I'm here because my mom was worried about me, I think she thought I didn't look like me, not myself lately . Patient dressed in hospital attire, cooperative with skin check. Affect is varied, with frequent tearful episodes. Focused on admission assessment. Reports she is unsure if she is depressed, denies SI/HI at this time. Endorses mild anxiety, rating it 3/10. Speech normal in rate tone and volume. Reports at times she does not understand some big words, is able to ask for clarity. Denies difficulty reading or writing. Thoughts are linear. Reports I think I over think my stress. I have been trying to figure out myself lately and it stresses me out. I think I should have gotten self help before 34 . Describes thoughts as over thinking, not racing . Thoughts that don't make sense, not mine. My brain is linky, like a run on thought, I don' t know how to stop thinking at that moment . Questions where she is going in life. Denies perceptual disturbances, denies A/V hallucinations. Reports weight loss in unknown period of time, 10-15 lbs. I don't feel like I'm ever hungry, I don't realize I'm hungry. States she slept last night although prior to sleep was johanna short . Denies medical problems. Small healing bruise L antecubital fossa. TOX screen positive for Amphetamine and THC. States she smokes cannabis daily, all day . Patient oriented to unit, placed on 15 minute safety checks. See nursing assessment, crisis evaluation for further details.
[2025-01-02 21:15] VITALS: BP 120/78; PULSE 93; RESP 18; TEMP 36.8; O2SAT 97
[2025-01-02 21:26] VITALS: BP 120/78
[2025-01-03 08:00] VITALS: BP 116/67; PULSE 76; RESP 16; TEMP 37; O2SAT 98
[2025-01-03 08:10] LABS: Alanine Aminotransferase 15 U/L (0-31); Albumin Level 4.9 g/dL (3.5-5.0); Alkaline Phosphatase 60 U/L (39-117); Anion Gap 13 (12-20); Aspartate Amino Transferase 20 U/L (5-31); Blood Urea Nitrogen 13 mg/dL (9-16); Calcium 9.4 mg/dL (8.4-10.2); Carbon Dioxide 25 mmol/L (22-29); Chloride 105 mmol/L (96-108); Cholesterol 134 mg/dL (<200); Creatinine Clr Calc Pharmacy 111.8; Estimated Glomerular Filt Rate > 60; HDL Cholesterol 46 mg/dL (>40); Potassium 3.6 mmol/L (3.3-5.1); Sodium 139 mmol/L (135-145); Total Protein 7.1 g/dL (6.5-8.0); Triglycerides 61 mg/dL (<150)
[2025-01-03 08:15] LABS: Hemoglobin A1C 114.2023 umol/L; Total Hemoglobin (HGBA1C) 3711.2721 umol/L
[2025-01-03] MEDS: Nicotine 14 MG PATCH.TD24 TRANSDERMA (08:27)
--- NOTE | 2025-01-03 08:54 | P.HPPS_ITS ---
[facility] Date of Service: 01/03/25 Chief Complaint: Crisis Sources of Information: patient interviewed, chart reviewed and crisis/core team assessment reviewed HPI Subjective Notes: Raymond Warning and Conditional Voluntary Narrative: Patient is a 34 year old female with hx of MDD, PTSD, and ADHD who self presented to ER due to poor sleep for the last 3 days secondary to possibly medication misuse. Per crisis report, patient's mother and boyfriend brought patient into ER due to poor sleep for the last 3 days and difficulty focusing. History of 1 prior inpatient psychiatric hospitalization in 2020. During that hospitalization patient did admit to misusing of Adderall and acids. Patient presents hyperverbal and pressured during this assessment; Asking same question multiple times. Denies SI/HI/VH/AH. Per patient's mother, this was the same presentation prior her last inpatient psychiatric admission. Patient's mother expresses she believes patient is misusing her prescribed Adderall; pt was prescribed Adderall in June 2024 and family members have observed a change in behavior since that time. Patient has outpatient psychiatric providers via telehealth. U tox positive for marijuana and amphetamines. During admission assessment, pt presents alert and oriented x3. calm and cooperative. Patient reports feeling anxious and depressed ; pt stated, I was having a hard time sleeping. I was taking less than prescribed Adderall. I think it's not good for me in general. I think I was taking my Adderall too late in the day and it was making me not sleep . Patient did not make any delusional statements during assessment. Patient denies Adderall misuse. Patient stated, I think my mom was worried it was going to turn into psychosis again .Patient denies SI/HI/VH/AH. Past Psychiatric History: Inpatient: 2020 M3- for psychosis. Prescriber: Hina ([place], [place]) Therapist: Josy denies hx of SIB. Medical Evaluation Reviewed: Yes [facility] Medical History Encounter for smoking cessation counseling Pain, joint, knee, left Cigarette smoker motivated to quit Nodule of skin of neck Remove/insert IUD PTSD (post-traumatic stress disorder) 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 Acute psychosis Surgical History History of appendectomy Family History: Unknown Social History: lives with mother, sister, brother and her boyfriend. No kids. completed high school, some college. 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 Substance History: Patient reports marijuana use daily. Denies any other substance use. Trauma History: Yes Diagnostics Vital Signs (24Hr): Vital Signs - 24 hr 01/02/25 09:13 01/02/25 15:37 01/02/25 21:15 Temperature 97.7 F 97.6 F 98.2 F Pulse Rate 72 104 H 93 Respiratory Rate 14 16 18 Blood Pressure 104/70 113/56 L 120/78 Pulse Oximetry 100 97 97 Oxygen Delivery Method Room Air Room Air Room Air 01/02/25 21:26 01/03/25 08:00 Temperature 98.6 F Pulse Rate 76 Respiratory Rate 16 Blood Pressure 120/78 116/67 Pulse Oximetry 98 Oxygen Delivery Method Room Air BMI result Body Mass Index 18.2 Labs 12/31/24 18:53 01/03/25 07:27 Labs: Laboratory Results - last 48 hr 01/03/25 07:27 Sodium 139 Potassium 3.6 Chloride 105 Carbon Dioxide 25 Anion Gap 13 BUN 13 Creatinine 0.56 Estim Creat Clear Calc 111.8 Estimated GFR > 60 Random Glucose 91 Estimat Average Glucose 97 Hemoglobin A1c % 5.0 Calcium 9.4 Total Bilirubin 0.8 AST 20 ALT 15 Alkaline Phosphatase 60 Total Protein 7.1 Albumin 4.9 Triglycerides 61 Cholesterol 134 LDL Cholesterol, Calc 76 HDL Cholesterol 46 Meds/Allergies Meds Home Medications ?Medication ?Instructions ?Recorded ?Confirmed ?Type clonidine HCl 0.2 mg tablet 0.2 mg PO TID PRN Anxiety 12/31/24 12/31/24 History Allergies Allergies Allergy/AdvReac Type Severity Reaction Status Date / Time olanzapine (From Zyprexa) AdvReac Rash Verified 12/31/24 18:41 Mental Status Exam Mental Status Exam Narrative: Pt is alert and oriented; behavior is cooperative and calm; dressed in casual attire; mood is described as anxious and depressed ; eye contact appropriate; Speech is normal rate, volume and not pressured; thought process is organized; Thought content is on tx; denies SI/HI/VH/AH. Assessment & Plan Assessment & Plan (1) PTSD (post-traumatic stress disorder): Status: Acute Code(s): F43.10 - Post-traumatic stress disorder, unspecified (2) MDD (major depressive disorder), recurrent episode: Status: Acute Code(s): F33.9 - Major depressive disorder, recurrent, unspecified (3) ADHD (attention deficit hyperactivity disorder): Status: Acute Code(s): F90.9 - Attention-deficit hyperactivity disorder, unspecified type Plan Patient is a 34 year old female with hx of MDD, PTSD, and ADHD who self presented to ER due to poor sleep for the last 3 days secondary to possibly medication misuse. Plan: CV 15 minute safety checks Continue home medications Hold Adderall Patient was started on Risperdal 1mg PO BID in ER Obtain collateral Encourage groups Discharge planning Patient educated on: diagnosis and medication risk/benefits Reason for continued inpatient stay Substantial Risk for: med/psych decompensation Statement Statement: I have reviewed the history and physical and performed a pertinent examination on my patient. No changes have occurred unless specified. If the History and Physical was not performed prior to admission, the Hospitalist's service will be consulted for completing the admission physical. Time Spent With Patient Time: Total time managing care of this patient today _60___ minutes.
[2025-01-03 20:45] VITALS: BP 128/68; PULSE 73; RESP 16; TEMP 36.6; O2SAT 98
[2025-01-04 08:00] VITALS: BP 145/84; PULSE 106; RESP 16; TEMP 36.8; O2SAT 97
[2025-01-04] MEDS: Nicotine 14 MG PATCH.TD24 TRANSDERMA (08:44)
--- NOTE | 2025-01-04 09:32 | P.PNPSI_ITS ---
Subjective Subjective Date of Service: 01/04/25 Reason For Visit: Crisis Subjective Notes: Conditional Voluntary Interim History: Patient was seen and discussed in rounds today. Records and plans were reviewed. She does have a 3 day notice in which expires on 01/08. Anxious over some issues pertaining to her discharge planning. Slept only 2 hours. Eating minimally. Affect is guarded. I increased her trazodone to 100 mg nightly with a repeat. No SI. No AVH. Mental Status Exam Mental Status Exam Narrative: In today's visit she is alert, oriented and pleasant. Normal speech. Moderate eye contact. Affect is constricted. No signs of psychosis. No AVH. No SI. Cognitively is intact. Moves all limbs. No gait abnormalities. Judgment Diagnostics Vital Signs (24Hr): Vital Signs - 24 hr 01/03/25 20:45 01/04/25 08:00 Temperature 97.8 F 98.2 F Pulse Rate 73 106 H Respiratory Rate 16 16 Blood Pressure 128/68 145/84 H Pulse Oximetry 98 97 Oxygen Delivery Method Room Air Room Air BMI result Body Mass Index 18.2 Labs 12/31/24 18:53 01/03/25 07:27 Labs: Laboratory Results - last 48 hr 01/03/25 07:27 Sodium 139 Potassium 3.6 Chloride 105 Carbon Dioxide 25 Anion Gap 13 BUN 13 Creatinine 0.56 Estim Creat Clear Calc 111.8 Estimated GFR > 60 Random Glucose 91 Estimat Average Glucose 97 Hemoglobin A1c % 5.0 Calcium 9.4 Total Bilirubin 0.8 AST 20 ALT 15 Alkaline Phosphatase 60 Total Protein 7.1 Albumin 4.9 Triglycerides 61 Cholesterol 134 LDL Cholesterol, Calc 76 HDL Cholesterol 46 Medications Medications Current Medications Acetaminophen (Acetaminophen 325 Mg Tablet) 650 mg PO Q6H PRN PRN Reason: Headache/Pain, Scale 1-10 Al Hydroxide/Mg Hydroxide (Magnesium Hydrox/Alum Hydrox 30 Ml Oral.Susp) 30 ml PO Q6H PRN PRN Reason: Heartburn/Nausea Clonidine HCl (Clonidine Hcl 0.2 Mg Tablet) 0.2 mg PO TID PRN; Protocol PRN Reason: Anxiety Last Admin: 01/03/25 21:25 Dose: 0.2 mg Hydroxyzine HCl (Hydroxyzine Hcl 25 Mg Tablet) 25 mg PO Q6H PRN PRN Reason: mild anxiety Last Admin: 01/04/25 02:10 Dose: 25 mg Magnesium Hydroxide (Milk Of Magnesia 30 Ml Oral.Susp) 30 ml PO DAILY PRN PRN Reason: Constipation Nicotine (Nicotine 14 Mg Patch.Td24) 14 mg TRANSDERMA DAILY [facility] Last Admin: 01/04/25 08:44 Dose: 14 mg Nicotine Polacrilex (Nicotine Polacrilex 2 Mg Gum) 4 mg BUCCAL Q2H PRN PRN Reason: Nicotine Cravings Last Admin: 01/03/25 05:14 Dose: 4 mg Risperidone (Risperidone 1 Mg Tablet) 1 mg PO BID [facility] Last Admin: 01/04/25 08:44 Dose: 1 mg Trazodone HCl (Trazodone Hcl 50 Mg Tablet) 50 mg PO BEDTIME MRX1 PRN PRN Reason: Insomnia Last Admin: 01/04/25 02:10 Dose: 50 mg Allergies Allergies Allergy/AdvReac Type Severity Reaction Status Date / Time olanzapine (From Zyprexa) AdvReac Rash Verified 12/31/24 18:41 Assessment & Plan Assessment & Plan (1) PTSD (post-traumatic stress disorder): Status: Acute Code(s): F43.10 - Post-traumatic stress disorder, unspecified (2) MDD (major depressive disorder), recurrent episode: Status: Acute Code(s): F33.9 - Major depressive disorder, recurrent, unspecified (3) ADHD (attention deficit hyperactivity disorder): Status: Acute Code(s): F90.9 - Attention-deficit hyperactivity disorder, unspecified type Plan Patient is a 34 year old female with hx of MDD, PTSD, and ADHD who self presented to ER due to poor sleep for the last 3 days secondary to possibly medication misuse. Plan: CV 15 minute safety checks Continue home medications Hold Adderall Patient was started on Risperdal 1mg PO BID in ER Obtain collateral Encourage groups Discharge planning 01/04: Continue current regimen and plans. Increase trazodone to 100 mg q.h.s. Patient educated on: medication risk/benefits Reason for continued inpatient stay Substantial Risk for: med/psych decompensation Time Spent With Patient Time: Total time managing care of this patient today ____ minutes.
[2025-01-04 19:43] VITALS: BP 138/74; PULSE 94; RESP 16; TEMP 37.2; O2SAT 98
[2025-01-04 22:00] VITALS: BP 178/85; PULSE 121; RESP 18; TEMP 36.8; O2SAT 97
[2025-01-04 22:16] LABS: Glucose, Whole Blood 120 mg/dL (60-115)
--- NOTE | 2025-01-04 22:44 | PC.NURSE ---
Pt had been in the bathroom on and off most of evening since shift start. At approximately 2200, this RN went in to check on her and she was in the bathroom when door was knocked on she responded but did not want to ccome out. Pt, after coaxing came and sat on bed. Vitals were taken and measured to be 98.2 /121 / 18 RR / 178/85 r arm /97 %. Pt's hands were cold and clammy/sweaty. Pt was tremulous and began to sob. RN tried to console but pt would not speak or answer any questions. Pt POC was measured to rule out hypoglycemic episode as her eating has been irregular. Pt POC was 120. Pt was then placed in ante room to allow her to calm and try to sleep as she was isolating in her bathroom in her room, which was a shared bathroom. Pt placed on 5 minute checks and will continue to monitor. Currently sleeping in her bathroom in [facility].
[2025-01-05 08:00] VITALS: BP 124/73; PULSE 123; RESP 20; TEMP 36.9; O2SAT 96
[2025-01-05] MEDS: Nicotine 14 MG PATCH.TD24 TRANSDERMA (08:26)
--- NOTE | 2025-01-05 09:41 | PC.NURSE ---
Patient refused her scheduled risperidone this morning stated I wont be taking any more meds while I'm here . Provider Dr Christensen notified of patient's refusal
--- NOTE | 2025-01-05 09:50 | HO.PSYCHPN ---
Subjective Subjective Date of Service: 01/05/25 Reason For Visit: Crisis Subjective Notes: Conditional Voluntary Interim History: Patient was seen and discussed in rounds today. Records and plans were reviewed. She continues to be anxious and fearful. This also affects her pulse rate which was up last night to 120. She has been confused at times. She can only sleep in the bathroom with a fan on. The 2nd dose of trazodone was helpful and actually I will increase her dose to 200 mg q.h.s. rather than a split dose with a repeat. No SI. Review of Systems Review of Systems Yes all other systems are reviewed and are negative Mental Status Exam Mental Status Exam Narrative: In today's visit she is alert, oriented and pleasant. Normal speech. No eye contact. Affect is constricted. No signs of psychosis other than reports of self dialogue. Denies AVH but there is indications of internal stimuli. No SI. Cognitively is intact. Moves all limbs. No gait abnormalities. Judgment could not be assessed Diagnostics Vital Signs (24Hr): Vital Signs - 24 hr 01/04/25 19:43 01/04/25 22:00 01/05/25 08:00 Temperature 98.9 F 98.2 F 98.4 F Pulse Rate 94 121 H 123 H Respiratory Rate 16 18 20 Blood Pressure 138/74 178/85 H 124/73 Pulse Oximetry 98 97 96 Oxygen Delivery Method Room Air Room Air Room Air BMI result Body Mass Index 18.2 Labs 12/31/24 18:53 01/03/25 07:27 Labs: Laboratory Results - last 48 hr 01/04/25 22:09 POC Glucose 120 H Medications Medications Current Medications Acetaminophen (Acetaminophen 325 Mg Tablet) 650 mg PO Q6H PRN PRN Reason: Headache/Pain, Scale 1-10 Al Hydroxide/Mg Hydroxide (Magnesium Hydrox/Alum Hydrox 30 Ml Oral.Susp) 30 ml PO Q6H PRN PRN Reason: Heartburn/Nausea Clonidine HCl (Clonidine Hcl 0.2 Mg Tablet) 0.2 mg PO TID PRN; Protocol PRN Reason: Anxiety Last Admin: 01/03/25 21:25 Dose: 0.2 mg Hydroxyzine HCl (Hydroxyzine Hcl 25 Mg Tablet) 25 mg PO Q6H PRN PRN Reason: mild anxiety Last Admin: 01/04/25 02:10 Dose: 25 mg Magnesium Hydroxide (Milk Of Magnesia 30 Ml Oral.Susp) 30 ml PO DAILY PRN PRN Reason: Constipation Nicotine (Nicotine 14 Mg Patch.Td24) 14 mg TRANSDERMA DAILY [facility] Last Admin: 01/05/25 08:26 Dose: 14 mg Nicotine Polacrilex (Nicotine Polacrilex 2 Mg Gum) 4 mg BUCCAL Q2H PRN PRN Reason: Nicotine Cravings Last Admin: 01/03/25 05:14 Dose: 4 mg Risperidone (Risperidone 1 Mg Tablet) 1 mg PO BID [facility] Last Admin: 01/05/25 09:41 Dose: Not Given Trazodone HCl (Trazodone Hcl 100 Mg Tablet) 100 mg PO BEDTIME MRX1 PRN PRN Reason: Insomnia Last Admin: 01/05/25 03:01 Dose: 100 mg Allergies Allergies Allergy/AdvReac Type Severity Reaction Status Date / Time olanzapine (From Zyprexa) AdvReac Rash Verified 12/31/24 18:41 Assessment & Plan Assessment & Plan (1) Psychosis: Status: Acute Code(s): F29 - Unspecified psychosis not due to a substance or known physiological condition Plan Ms. Sheridan is a 34 year-old woman who presents with s/s of psychosis, disorganized, some degree of paranoia. She had similar episode back in 2020. 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 I do suspect that there may be underlying psychiatric disorder that is triggered by amphetamine use but not necessarily caused by it. Further evaluation to clarify dx is needed. We discussed inpt level of care. We also discussed restarting risperidone 1mg po BID. low dose clonazepam. continue clonidine. 1. IPLOC 2. start risperidone 1mg po BID. Clonazepam 0.5mg po BID. 01/05: Continue current regimen and plans Reason for continued inpatient stay Substantial Risk for: med/psych decompensation Time Spent With Patient Time: Total time managing care of this patient today ____ minutes.
[2025-01-05 20:00] VITALS: BP 135/90; PULSE 86; RESP 16; TEMP 36.4; O2SAT 96
[2025-01-06] MEDS: Nicotine 14 MG PATCH.TD24 TRANSDERMA (08:51)
--- NOTE | 2025-01-06 10:22 | HO.PSYEVENT ---
Event Note Date of Service: 01/06/25 Psych Restraint Event Note: pt psychotic and disorganized, climbing on tables in milieu, jumping from tables. Time Spent With Patient Time: Total time managing care of this patient today __35__ minutes.
[2025-01-06] MEDS: diazePAM 10 MG/2 ML CARTRIDGE IM (10:29)
--- NOTE | 2025-01-06 11:11 | HO.BHRESTREX ---
Behavioral Restraint Exam Behavioral Health Restraint Exam Type of Restraint: Physical Hold and Medication Reason for Restraint: Substantial Risk Medical Concerns for Restraint: No medical concerns, pt w/o acute inj / no noted resp/VS abnormalities Behavioral Assessment / Plan: No further behavioral concerns, continue current plan. Comment: pt ambulating the [place] with 1:1, asking if she may meet with and/or follow MD while MD is seeing other patients.
--- NOTE | 2025-01-06 11:52 | PC.NURSE ---
Approximately 10:15am, staff observed patient crawling on the floor on all 4 limbs. She was not responsive to attempts to redirect. Encouraged patient not to crawl on the floor, she then started crawling toward staff standing nearby. She was also holding a pen clenched in her right hand. Refused to hand it to RN despite being asked multiple times. She suddenly ambulated, and sprinted to common room. She then climbed onto 1 table- was standing on the table, surrounded by staff encouraging her to come down. Patient continued to clench pen then jumped to a different table. She then returned to the 1st table, standing. Patient then climbed off the table and walked to room 319. During this time, security was contacted and provider gave orders for IM medication and 1:1 sitter. IM medication administered while security held bilateral arms and legs due to patient's attempts to kick staff. Patient reassessed- declined VS. Declined legally authorized patient services representative notification.
--- NOTE | 2025-01-06 19:17 | HO.PSYCHPN ---
Subjective Subjective Date of Service: 01/06/25 Reason For Visit: Crisis Interim History: disorganized, wiping her face and hair on the floor. wandering the unit, intrusive to peers and staff. climbing and jumping on tables, received medication and physical restraint. per staff, declining risperidone. 3-day up weds. restless, isolative, position in ante-room. slept only about 2 hours overnight. Mental Status Exam Mental Status Exam Narrative: Appearance: adequately dressed and groomed Behavior: bizarre, disorganizd Psychomotor: restless Speech: clear, regular rate/rhythm, spontaneous TP: questions, but inappropaite to the context TC: following and inrtusive of MD Mood: not assessed Affect: guarded AH/VH: none expressed Insight/judgment: impaired x 2. Memory/cog: alert, impaired secondary to psychiatric symptoms. Diagnostics Vital Signs (24Hr): Vital Signs - 24 hr 01/05/25 20:00 Temperature 97.6 F Pulse Rate 86 Respiratory Rate 16 Blood Pressure 135/90 H Pulse Oximetry 96 Oxygen Delivery Method Room Air BMI result Body Mass Index 18.2 Labs 12/31/24 18:53 01/03/25 07:27 Labs: Laboratory Results - last 48 hr 01/04/25 22:09 POC Glucose 120 H Medications Medications Current Medications Acetaminophen (Acetaminophen 325 Mg Tablet) 650 mg PO Q6H PRN PRN Reason: Headache/Pain, Scale 1-10 Al Hydroxide/Mg Hydroxide (Magnesium Hydrox/Alum Hydrox 30 Ml Oral.Susp) 30 ml PO Q6H PRN PRN Reason: Heartburn/Nausea Clonidine HCl (Clonidine Hcl 0.2 Mg Tablet) 0.2 mg PO TID PRN; Protocol PRN Reason: Anxiety Last Admin: 01/03/25 21:25 Dose: 0.2 mg Hydroxyzine HCl (Hydroxyzine Hcl 25 Mg Tablet) 25 mg PO Q6H PRN PRN Reason: mild anxiety Last Admin: 01/05/25 21:22 Dose: 25 mg Magnesium Hydroxide (Milk Of Magnesia 30 Ml Oral.Susp) 30 ml PO DAILY PRN PRN Reason: Constipation Nicotine (Nicotine 14 Mg Patch.Td24) 14 mg TRANSDERMA DAILY [facility] Last Admin: 01/06/25 08:51 Dose: 14 mg Nicotine Polacrilex (Nicotine Polacrilex 2 Mg Gum) 4 mg BUCCAL Q2H PRN PRN Reason: Nicotine Cravings Last Admin: 01/03/25 05:14 Dose: 4 mg Quetiapine Fumarate (Quetiapine Fumarate 200 Mg Tablet) 200 mg PO BEDTIME [facility] Quetiapine Fumarate (Quetiapine Fumarate 50 Mg Tablet) 50 mg PO DAILY [facility] Trazodone HCl (Trazodone Hcl 100 Mg Tablet) 100 mg PO BEDTIME MRX1 PRN PRN Reason: Insomnia Last Admin: 01/05/25 21:22 Dose: 100 mg Allergies Allergies Allergy/AdvReac Type Severity Reaction Status Date / Time olanzapine (From Zyprexa) AdvReac Rash Verified 12/31/24 18:41 Assessment & Plan Assessment & Plan (1) Psychosis: Status: Acute Code(s): F29 - Unspecified psychosis not due to a substance or known physiological condition Plan Ms. Sheridan is a 34 year-old woman who presents with s/s of psychosis, disorganized, some degree of paranoia. She had similar episode back in 2020. 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 I do suspect that there may be underlying psychiatric disorder that is triggered by amphetamine use but not necessarily caused by it. Further evaluation to clarify dx is needed. We discussed inpt level of care. We also discussed restarting risperidone 1mg po BID. low dose clonazepam. continue clonidine. 1. IPLOC 2. start risperidone 1mg po BID. Clonazepam 0.5mg po BID. 01/05: Continue current regimen and plans. 01/06: slept only 2 hours, disorganized, decompensated behaviors. unable to interact cogently. refusing risperidone, will offer seroquel instead. possible bipolar diathesis, T/C mood stabilizer. delirium also a possibility, as the mental status change since admission appears to be striking. Reason for continued inpatient stay Substantial Risk for: inability to function Time Spent With Patient Time: Total time managing care of this patient today __25__ minutes.
[2025-01-06 20:30] VITALS: BP 140/82; PULSE 110; RESP 16; TEMP 36.6; O2SAT 97
[2025-01-07 07:15] VITALS: BP 118/78; PULSE 89; RESP 12; TEMP 36.4; O2SAT 97
[2025-01-07] MEDS: Nicotine 14 MG PATCH.TD24 TRANSDERMA (08:28)
--- NOTE | 2025-01-07 13:22 | HO.PSYCHPN ---
Subjective Subjective Date of Service: 01/07/25 Reason For Visit: Crisis Interim History: in ante-room on 1:1. more conversant and logical today. MD encouraged pt to remain compliant with seroquel 200 at HS. per staff, 3-day up . 1:1. refusing VS after restraint. needs lots of encouragement to take meds. barricaded self in ante-room bathroom in [employer]. slept total of 5.5 hours overnight. grabbed staff badge and threw it. Mental Status Exam Mental Status Exam Narrative: Appearance: adequately dressed and groomed Behavior: PMR Speech: clear, regular rate/rhythm, spontaneous. incr ALLEN. TP: linear but delayed TC: topical Mood: euthymic Affect: guarded AH/VH: none expressed Insight/judgment: impaired x 2. Memory/cog: alert, impaired secondary to psychiatric symptoms. Diagnostics Vital Signs (24Hr): Vital Signs - 24 hr 01/06/25 20:30 01/07/25 07:15 Temperature 97.8 F 97.6 F Pulse Rate 110 H 89 Respiratory Rate 16 12 Blood Pressure 140/82 H 118/78 Pulse Oximetry 97 97 Oxygen Delivery Method Room Air Room Air BMI result Body Mass Index 18.2 Labs 12/31/24 18:53 01/03/25 07:27 Medications Medications Current Medications Acetaminophen (Acetaminophen 325 Mg Tablet) 650 mg PO Q6H PRN PRN Reason: Headache/Pain, Scale 1-10 Al Hydroxide/Mg Hydroxide (Magnesium Hydrox/Alum Hydrox 30 Ml Oral.Susp) 30 ml PO Q6H PRN PRN Reason: Heartburn/Nausea Clonidine HCl (Clonidine Hcl 0.2 Mg Tablet) 0.2 mg PO TID PRN; Protocol PRN Reason: Anxiety Last Admin: 01/06/25 20:39 Dose: 0.2 mg Hydroxyzine HCl (Hydroxyzine Hcl 25 Mg Tablet) 25 mg PO Q6H PRN PRN Reason: mild anxiety Last Admin: 01/05/25 21:22 Dose: 25 mg Magnesium Hydroxide (Milk Of Magnesia 30 Ml Oral.Susp) 30 ml PO DAILY PRN PRN Reason: Constipation Nicotine (Nicotine 14 Mg Patch.Td24) 14 mg TRANSDERMA DAILY VERONICA Last Admin: 01/07/25 08:28 Dose: 14 mg Nicotine Polacrilex (Nicotine Polacrilex 2 Mg Gum) 4 mg BUCCAL Q2H PRN PRN Reason: Nicotine Cravings Last Admin: 01/03/25 05:14 Dose: 4 mg Quetiapine Fumarate (Quetiapine Fumarate 200 Mg Tablet) 200 mg PO BEDTIME VERONICA Last Admin: 01/06/25 20:21 Dose: 200 mg Quetiapine Fumarate (Quetiapine Fumarate 50 Mg Tablet) 50 mg PO DAILY VERONICA Last Admin: 01/07/25 08:31 Dose: Not Given Trazodone HCl (Trazodone Hcl 100 Mg Tablet) 100 mg PO BEDTIME MRX1 PRN PRN Reason: Insomnia Last Admin: 01/06/25 20:21 Dose: 100 mg Allergies Allergies Allergy/AdvReac Type Severity Reaction Status Date / Time olanzapine (From Zyprexa) AdvReac Rash Verified 12/31/24 18:41 Assessment & Plan Assessment & Plan (1) Psychosis: Status: Acute Code(s): F29 - Unspecified psychosis not due to a substance or known physiological condition Plan Ms. Sheridan is a 34 year-old woman who presents with s/s of psychosis, disorganized, some degree of paranoia. She had similar episode back in 2020. 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 I do suspect that there may be underlying psychiatric disorder that is triggered by amphetamine use but not necessarily caused by it. Further evaluation to clarify dx is needed. We discussed inpt level of care. We also discussed restarting risperidone 1mg po BID. low dose clonazepam. continue clonidine. 1. IPLOC 2. start risperidone 1mg po BID. Clonazepam 0.5mg po BID. 01/05: Continue current regimen and plans. 01/06: slept only 2 hours, disorganized, decompensated behaviors. unable to interact cogently. refusing risperidone, will offer seroquel instead. possible bipolar diathesis, T/C mood stabilizer. delirium also a possibility, as the mental status change since admission appears to be striking. 01/07: took seroquel 200 last night, slept 5.5 hours. more organized, linear, able to engage today. continue current mgmt. Reason for continued inpatient stay Substantial Risk for: inability to function Time Spent With Patient Time: Total time managing care of this patient today __25__ minutes.
[2025-01-07 19:40] VITALS: BP 113/65; PULSE 74; RESP 16; TEMP 36.7; O2SAT 100
[2025-01-08 07:51] VITALS: BP 158/88; PULSE 118; RESP 16; TEMP 37.2; O2SAT 98
[2025-01-08] MEDS: Nicotine 14 MG PATCH.TD24 TRANSDERMA (08:13)
--- NOTE | 2025-01-08 14:03 | HO.PSYCHPN ---
Subjective Subjective Date of Service: 01/08/25 Reason For Visit: Crisis Interim History: bizarre behaviors, agitated pacing the milieu, tapping on chairs, throwing squish balls around the room. stating MD is not an MD. calling TERESSA connell. refusing medications. per staff, slept about 30 minutes in the past 24H. restless, pacing. getting in peers' faces, asking am i irritating you? Mental Status Exam Mental Status Exam Narrative: Appearance: adequately dressed and groomed Behavior: PMA Speech: clear, regular rate/rhythm, spontaneous. decr ALLEN. TP: bizarre, non-sequiturs TC: paranoid delusions Mood: not assessed Affect: guarded AH/VH: none expressed Insight/judgment: impaired x 2. Memory/cog: alert, impaired secondary to psychiatric symptoms. Diagnostics Vital Signs (24Hr): Vital Signs - 24 hr 01/07/25 19:40 01/08/25 07:51 Temperature 98.0 F 99.0 F Pulse Rate 74 118 H Respiratory Rate 16 16 Blood Pressure 113/65 158/88 H Pulse Oximetry 100 98 Oxygen Delivery Method Room Air Room Air BMI result Body Mass Index 18.2 Labs 12/31/24 18:53 01/03/25 07:27 Medications Medications Current Medications Acetaminophen (Acetaminophen 325 Mg Tablet) 650 mg PO Q6H PRN PRN Reason: Headache/Pain, Scale 1-10 Al Hydroxide/Mg Hydroxide (Magnesium Hydrox/Alum Hydrox 30 Ml Oral.Susp) 30 ml PO Q6H PRN PRN Reason: Heartburn/Nausea Clonidine HCl (Clonidine Hcl 0.2 Mg Tablet) 0.2 mg PO TID PRN; Protocol PRN Reason: Anxiety Last Admin: 01/06/25 20:39 Dose: 0.2 mg Hydroxyzine HCl (Hydroxyzine Hcl 25 Mg Tablet) 25 mg PO Q6H PRN PRN Reason: mild anxiety Last Admin: 01/05/25 21:22 Dose: 25 mg Magnesium Hydroxide (Milk Of Magnesia 30 Ml Oral.Susp) 30 ml PO DAILY PRN PRN Reason: Constipation Nicotine (Nicotine 14 Mg Patch.Td24) 14 mg TRANSDERMA DAILY VERONICA Last Admin: 01/08/25 08:13 Dose: 14 mg Nicotine Polacrilex (Nicotine Polacrilex 2 Mg Gum) 4 mg BUCCAL Q2H PRN PRN Reason: Nicotine Cravings Last Admin: 01/03/25 05:14 Dose: 4 mg Quetiapine Fumarate (Quetiapine Fumarate 200 Mg Tablet) 200 mg PO BEDTIME VERONICA Last Admin: 01/07/25 22:05 Dose: Not Given Quetiapine Fumarate (Quetiapine Fumarate 50 Mg Tablet) 50 mg PO DAILY VERONICA Last Admin: 01/08/25 09:07 Dose: Not Given Trazodone HCl (Trazodone Hcl 100 Mg Tablet) 100 mg PO BEDTIME MRX1 PRN PRN Reason: Insomnia Last Admin: 01/06/25 20:21 Dose: 100 mg Allergies Allergies Allergy/AdvReac Type Severity Reaction Status Date / Time olanzapine (From Zyprexa) AdvReac Rash Verified 12/31/24 18:41 Assessment & Plan Assessment & Plan (1) Psychosis: Status: Acute Code(s): F29 - Unspecified psychosis not due to a substance or known physiological condition Plan Ms. Sheridan is a 34 year-old woman who presents with s/s of psychosis, disorganized, some degree of paranoia. She had similar episode back in 2020. 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 I do suspect that there may be underlying psychiatric disorder that is triggered by amphetamine use but not necessarily caused by it. Further evaluation to clarify dx is needed. We discussed inpt level of care. We also discussed restarting risperidone 1mg po BID. low dose clonazepam. continue clonidine. 1. IPLOC 2. start risperidone 1mg po BID. Clonazepam 0.5mg po BID. 01/05: Continue current regimen and plans. 01/06: slept only 2 hours, disorganized, decompensated behaviors. unable to interact cogently. refusing risperidone, will offer seroquel instead. possible bipolar diathesis, T/C mood stabilizer. delirium also a possibility, as the mental status change since admission appears to be striking. 01/07: took seroquel 200 last night, slept 5.5 hours. more organized, linear, able to engage today. continue current mgmt. 01/08: refused seroquel last NOC, slept only 30 minutes. agitated, bizarre, disorganized today. commitment paperwork filed. Reason for continued inpatient stay Substantial Risk for: inability to function Time Spent With Patient Time: Total time managing care of this patient today _35___ minutes.
[2025-01-08 19:35] VITALS: BP 139/82; PULSE 112; RESP 18; TEMP 36.4; O2SAT 98
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
[2025-01-09] MEDS: diazePAM 10 MG/2 ML CARTRIDGE IM (00:25)
--- NOTE | 2025-01-09 00:44 | HO.BHRESTREX ---
Behavioral Restraint Exam Behavioral Health Restraint Exam Type of Restraint: Medication Reason for Restraint: Substantial Risk Medical Concerns for Restraint: No medical concerns, pt w/o acute inj / no noted resp/VS abnormalities Behavioral Assessment / Plan: No further behavioral concerns, continue current plan.
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
[2025-01-09 07:47] VITALS: BP 141/92; PULSE 100; TEMP 36.8; O2SAT 99
[2025-01-09] MEDS: Nicotine 14 MG PATCH.TD24 TRANSDERMA (09:12)
--- NOTE | 2025-01-09 11:14 | PC.NURSE ---
This ghost writer called this patient's mother as she had called earlier. We spoke and it was communicated to her that pt took all morning medications today. NO further questions/concerned at this time.
--- NOTE | 2025-01-09 13:26 | PC.NURSE ---
Pt came out of bedroom shaking and really confused. She didn't know if she was dreaming, and kept thinking that conversations that had not happened between us, had already happened. She requested a visit from her mother. Mother was called and said she was able to come in shortly. Provider notified.
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
[2025-01-09 15:30] VITALS: BP 159/79; PULSE 116; RESP 17; TEMP 36.4; O2SAT 97
--- NOTE | 2025-01-09 16:01 | ECG_ITS ---
Test Reason : CP Blood Pressure : */* mmHG Vent. Rate : 91 BPM Atrial Rate : 91 BPM P-R Int : 114 ms QRS Dur : 82 ms QT Int : 364 ms P-R-T Axes : 81 62 54 degrees QTcB Int : 447 ms Normal sinus rhythm Normal ECG When compared with ECG of 01-Jan-2025 18:37, No significant change was found Referred By: Kb Franklin Electronically Signed By: LIZETT JUNIOR
--- NOTE | 2025-01-09 16:03 | PM.EVENT ---
Event Note Date of Service: 01/09/25 Event Note: Called to [facility] to evaluate a patient who his tachycardic, reporting that she feels like she is dying heart rate is elevated, she is sitting in a chair, anxious, received 10 mg of Valium yesterday as well as 10 mg of Haldol, she reports that she feels as though she is overmedicated. She also received Benadryl, this morning she received Seroquel. We will check labs to ensure there is no abnormalities. Time Spent With Patient Time: Total time managing care of this patient today ____ minutes.
[2025-01-09 16:42] LABS: MANUAL DIFF FLAG NO
[2025-01-09 16:43] LABS: Hematocrit 38.0 % (37.0-47.0); Hemoglobin 13.5 g/dl (12.0-16.0); Imm Gran Abs Auto 0.03 X10*3/uL (0.00-0.03); Imm Gran Pct Auto 0.3 % (0.0-0.4); Lymphocytes Absolute Auto 2.9 X10*3/uL (1.2-4.9); Mean Corpuscular HGB Conc 35.5 g/dl (31.0-35.0); Mean Corpuscular Hemoglobin 32.7 pg (27.0-33.0); Mean Corpuscular Volume 92.0 fL (80.0-98.0); NRBC Abs Auto 0.000 X10*3/uL (0.0-0.012); NRBC Pct Auto 0.0 /100WBC (0.0-0.2); Platelet Count 295 X10*3/uL (160-400); Red Blood Count 4.13 X10*6/uL (4.20-5.50); White Blood Count 10.3 X10*3/uL (4.8-10.8)
[2025-01-09 16:58] LABS: Anion Gap 13 (12-20); Blood Urea Nitrogen 10 mg/dL (9-16); Calcium 9.6 mg/dL (8.4-10.2); Carbon Dioxide 27 mmol/L (22-29); Chloride 105 mmol/L (96-108); Creatinine Clr Calc Pharmacy 102.6; Estimated Glomerular Filt Rate > 60; Potassium 3.4 mmol/L (3.3-5.1); Sodium 142 mmol/L (135-145)
--- NOTE | 2025-01-09 17:37 | PC.NURSE ---
During afternoon, pt was repeating I am dying . She was c/o being hot and cold, one right after another. Her VS were as follows: 97.5, 116, 159/79, 97%. Provider notified via [employer]. His response was ok . This caption writer then reached out to medical sport psychologist, Edie Campos. She assessed the patient and then ordered STAT EKG and labs. EKG was WNL, lab results pending. Pt is also asking many questions close together, and walking away without receiving any answer.
[2025-01-09 20:00] VITALS: RESP 18
[2025-01-10 07:47] VITALS: BP 137/93; PULSE 83; RESP 14; TEMP 36.4; O2SAT 97
[2025-01-10] MEDS: Nicotine 14 MG PATCH.TD24 TRANSDERMA (09:23)
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
[2025-01-10 20:00] VITALS: BP 134/73; PULSE 119; RESP 14; TEMP 36.9; O2SAT 100
[2025-01-11 07:25] VITALS: BP 119/70; PULSE 93; RESP 14; TEMP 36.6; O2SAT 99
[2025-01-11 08:09] VITALS: BP 119/70
[2025-01-11] MEDS: Nicotine 14 MG PATCH.TD24 TRANSDERMA (08:11)
[2025-01-11] MEDS: Milk of Magnesia 30 ML ORAL.SUSP PO (09:45)
--- NOTE | 2025-01-11 10:57 | P.PNPSI_ITS ---
Subjective Subjective Date of Service: 01/11/25 Reason For Visit: Crisis Subjective Notes: Section 7 Interim History: Pt slept only 4 hrs. She slept on the floor in the bathroom. She continues to present with paranoid ideas that someone is trying to harm her. Not oriented to situation. Denies SI/HI. She has been taking medications. She presents as guarded and fearful. Medication Compliance: Yes Diagnostics Vital Signs (24Hr): Vital Signs - 24 hr 01/10/25 20:00 01/11/25 07:25 01/11/25 08:09 Temperature 98.4 F 97.8 F Pulse Rate 119 H 93 Respiratory Rate 14 14 Blood Pressure 134/73 119/70 119/70 Pulse Oximetry 100 99 Oxygen Delivery Method Room Air Room Air BMI result Body Mass Index 18.2 Labs 01/09/25 16:36 01/09/25 16:36 Labs: Laboratory Results - last 48 hr 01/09/25 16:36 WBC 10.3 RBC 4.13 L Hgb 13.5 Hct 38.0 MCV 92.0 MCH 32.7 MCHC 35.5 H RDW 11.6 Plt Count 295 MPV 9.3 L Immature Gran % (Auto) 0.3 Neut % (Auto) 61.2 Lymph % (Auto) 27.8 [place] % (Auto) 10.1 Eos % (Auto) 0.3 Baso % (Auto) 0.3 Lymph # (Auto) 2.9 [place] # (Auto) 1.0 Eos # (Auto) 0.0 Baso # (Auto) 0.0 Abs Immat Gran (auto) 0.03 Absolute Neuts (auto) 6.3 Absolute Nucleated RBC 0.000 Nucleated RBC % (auto) 0.0 Sodium 142 Potassium 3.4 Chloride 105 Carbon Dioxide 27 Anion Gap 13 BUN 10 Creatinine 0.61 Estim Creat Clear Calc 102.6 Estimated GFR > 60 Random Glucose 101 Calcium 9.6 Medications Medications Current Medications Acetaminophen (Acetaminophen 325 Mg Tablet) 650 mg PO Q6H PRN PRN Reason: Headache/Pain, Scale 1-10 Last Admin: 01/11/25 09:45 Dose: 650 mg Al Hydroxide/Mg Hydroxide (Magnesium Hydrox/Alum Hydrox 30 Ml Oral.Susp) 30 ml PO Q6H PRN PRN Reason: Heartburn/Nausea Clonidine HCl (Clonidine Hcl 0.2 Mg Tablet) 0.2 mg PO TID PRN; Protocol PRN Reason: Anxiety Last Admin: 01/11/25 08:09 Dose: 0.2 mg Hydroxyzine HCl (Hydroxyzine Hcl 25 Mg Tablet) 25 mg PO Q6H PRN PRN Reason: mild anxiety Last Admin: 01/10/25 13:19 Dose: 25 mg Magnesium Hydroxide (Milk Of Magnesia 30 Ml Oral.Susp) 30 ml PO DAILY PRN PRN Reason: Constipation Last Admin: 01/11/25 09:45 Dose: 30 ml Nicotine (Nicotine 14 Mg Patch.Td24) 14 mg TRANSDERMA DAILY [facility] Last Admin: 01/11/25 08:11 Dose: 14 mg Nicotine Polacrilex (Nicotine Polacrilex 2 Mg Gum) 4 mg BUCCAL Q2H PRN PRN Reason: Nicotine Cravings Last Admin: 01/03/25 05:14 Dose: 4 mg Risperidone (Risperidone 2 Mg Tablet) 2 mg PO BID [facility] Last Admin: 01/11/25 08:06 Dose: 2 mg Trazodone HCl (Trazodone Hcl 100 Mg Tablet) 100 mg PO BEDTIME MRX1 PRN PRN Reason: Insomnia Last Admin: 01/10/25 20:39 Dose: 100 mg Allergies Allergies Allergy/AdvReac Type Severity Reaction Status Date / Time olanzapine (From Zyprexa) AdvReac Rash Verified 12/31/24 18:41 Assessment & Plan Assessment & Plan (1) Psychosis: Status: Acute Code(s): F29 - Unspecified psychosis not due to a substance or known physiological condition Plan Ms. Sheridan is a 34 year-old woman who presents with s/s of psychosis, disorganized, some degree of paranoia. She had similar episode back in 2020. 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 I do suspect that there may be underlying psychiatric disorder that is triggered by amphetamine use but not necessarily caused by it. Further evaluation to clarify dx is needed. We discussed inpt level of care. We also discussed restarting risperidone 1mg po BID. low dose clonazepam. continue clonidine. 1. IPLOC 2. start risperidone 1mg po BID. Clonazepam 0.5mg po BID. 01/05: Continue current regimen and plans. 01/06: slept only 2 hours, disorganized, decompensated behaviors. unable to interact cogently. refusing risperidone, will offer seroquel instead. possible bipolar diathesis, T/C mood stabilizer. delirium also a possibility, as the mental status change since admission appears to be striking. 01/07: took seroquel 200 last night, slept 5.5 hours. more organized, linear, able to engage today. continue current mgmt. 01/08: refused seroquel last NOC, slept only 30 minutes. agitated, bizarre, disorganized today. commitment paperwork filed. 01/09: refused meds yesterday but got IMs due to behaviors (outbursts, touching peers, yelling, banging doors, pushed her sitter, climbing on tables and chairs. threatening to stab self with pens). more linear and engageable today, once again the day after having takenm medication. agrees to continue to take seroquel 200 mg QHS. 01/10: took seroquel last NOC and slept 4 hours overnight, but bizarre today. less agitation and intrusiveness than yesterday, but still bizarre and fairly intrusive. pt appears willing to take risperidone, will DC seroquel and return to dosing of risperidone 2 mg BID. took first dose this afternoon. court next monday. 01/11 very paranoid and guarded. sleeping in the bathroom on the floor, fearful that she will be killed if she states here in the hospital. Reason for continued inpatient stay Substantial Risk for: inability to function Time Spent With Patient Time: Total time managing care of this patient today ____ minutes.
[2025-01-11 20:00] VITALS: BP 135/67; PULSE 115; RESP 16; TEMP 37.1; O2SAT 98
[2025-01-12 00:11] VITALS: BP 128/86; PULSE 110
[2025-01-12 07:06] VITALS: BP 131/83; PULSE 127; RESP 16; TEMP 36.6; O2SAT 99
[2025-01-12] MEDS: Nicotine 14 MG PATCH.TD24 TRANSDERMA (08:15)
[2025-01-12 17:35] VITALS: BP 129/60
--- NOTE | 2025-01-12 17:46 | P.PNPSI_ITS ---
Subjective Subjective Date of Service: 01/13/25 Reason For Visit: Crisis Subjective Notes: Section 7 Interim History: Pt slept only 4 hrs. She continues to present with paranoid ideas that someone is trying to harm her. She asks this newspaper writer if I have keys to get out of the unit and if I would let her go as she is not safe here. Not oriented to situation. Denies SI/HI. She has been taking medications. She presents as guarded and fearful. Review of Systems Review of Systems Yes all other systems are reviewed and are negative and Unobtainable due to mental status (sylwia) Mental Status Exam Mental Status Exam Narrative: Appearance: adequately dressed and groomed Behavior: PMA Speech: clear, regular rate/rhythm, spontaneous. decr ALLEN. TP: bizarre, non-sequiturs TC: paranoid delusions Mood: not assessed Affect: guarded AH/VH: none expressed Insight/judgment: impaired x 2. Memory/cog: alert, impaired secondary to psychiatric symptoms. Diagnostics Vital Signs (24Hr): Vital Signs - 24 hr 01/11/25 20:00 01/12/25 00:11 01/12/25 07:06 Temperature 98.7 F 98 F Pulse Rate 115 H 110 H 127 H Respiratory Rate 16 16 Blood Pressure 135/67 128/86 131/83 Pulse Oximetry 98 99 Oxygen Delivery Method Room Air Room Air 01/12/25 17:35 Temperature Pulse Rate Respiratory Rate Blood Pressure 129/60 Pulse Oximetry Oxygen Delivery Method BMI result Body Mass Index 18.2 Labs 01/09/25 16:36 01/09/25 16:36 Medications Medications Current Medications Acetaminophen (Acetaminophen 325 Mg Tablet) 650 mg PO Q6H PRN PRN Reason: Headache/Pain, Scale 1-10 Last Admin: 01/12/25 17:35 Dose: 650 mg Al Hydroxide/Mg Hydroxide (Magnesium Hydrox/Alum Hydrox 30 Ml Oral.Susp) 30 ml PO Q6H PRN PRN Reason: Heartburn/Nausea Clonidine HCl (Clonidine Hcl 0.2 Mg Tablet) 0.2 mg PO TID PRN; Protocol PRN Reason: Anxiety Last Admin: 01/12/25 17:35 Dose: 0.2 mg Docusate Sodium (Docusate Sodium 100 Mg Capsule) 100 mg PO BID PRN PRN Reason: Constipation Hydrocortisone (Hydrocortisone 2.5 % Rectal Cr 30 Gm Tube) 1 appl [place] DAILY PRN PRN Reason: hemrroids Hydroxyzine HCl (Hydroxyzine Hcl 25 Mg Tablet) 25 mg PO Q6H PRN PRN Reason: mild anxiety Last Admin: 01/12/25 13:22 Dose: 25 mg Magnesium Hydroxide (Milk Of Magnesia 30 Ml Oral.Susp) 30 ml PO DAILY PRN PRN Reason: Constipation Last Admin: 01/11/25 09:45 Dose: 30 ml Nicotine (Nicotine 14 Mg Patch.Td24) 14 mg TRANSDERMA DAILY [facility] Last Admin: 01/12/25 08:15 Dose: 14 mg Nicotine Polacrilex (Nicotine Polacrilex 2 Mg Gum) 4 mg BUCCAL Q2H PRN PRN Reason: Nicotine Cravings Last Admin: 01/11/25 18:53 Dose: 4 mg Risperidone (Risperidone 2 Mg Tablet) 2 mg PO BID [facility] Last Admin: 01/12/25 08:16 Dose: 2 mg Trazodone HCl (Trazodone Hcl 100 Mg Tablet) 100 mg PO BEDTIME MRX1 PRN PRN Reason: Insomnia Last Admin: 01/11/25 23:05 Dose: 100 mg Allergies Allergies Allergy/AdvReac Type Severity Reaction Status Date / Time olanzapine (From Zyprexa) AdvReac Rash Verified 12/31/24 18:41 Assessment & Plan Assessment & Plan (1) Psychosis: Status: Acute Code(s): F29 - Unspecified psychosis not due to a substance or known physiological condition Plan Ms. Sheridan is a 34 year-old woman who presents with s/s of psychosis, disorganized, some degree of paranoia. She had similar episode back in 2020. 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 I do suspect that there may be underlying psychiatric disorder that is triggered by amphetamine use but not necessarily caused by it. Further evaluation to clarify dx is needed. We discussed inpt level of care. We also discussed restarting risperidone 1mg po BID. low dose clonazepam. continue clonidine. 1. IPLOC 2. start risperidone 1mg po BID. Clonazepam 0.5mg po BID. 01/05: Continue current regimen and plans. 01/06: slept only 2 hours, disorganized, decompensated behaviors. unable to interact cogently. refusing risperidone, will offer seroquel instead. possible bipolar diathesis, T/C mood stabilizer. delirium also a possibility, as the mental status change since admission appears to be striking. 01/07: took seroquel 200 last night, slept 5.5 hours. more organized, linear, able to engage today. continue current mgmt. 01/08: refused seroquel last NOC, slept only 30 minutes. agitated, bizarre, disorganized today. commitment paperwork filed. 01/09: refused meds yesterday but got IMs due to behaviors (outbursts, touching peers, yelling, banging doors, pushed her sitter, climbing on tables and chairs. threatening to stab self with pens). more linear and engageable today, once again the day after having takenm medication. agrees to continue to take seroquel 200 mg QHS. 01/10: took seroquel last NOC and slept 4 hours overnight, but bizarre today. less agitation and intrusiveness than yesterday, but still bizarre and fairly intrusive. pt appears willing to take risperidone, will DC seroquel and return to dosing of risperidone 2 mg BID. took first dose this afternoon. court next monday. 01/11 very paranoid, fearful, taking medications 01/12 continue tx. Reason for continued inpatient stay Substantial Risk for: inability to function Time Spent With Patient Time: Total time managing care of this patient today ____ minutes.
[2025-01-12] MEDS: Milk of Magnesia 30 ML ORAL.SUSP PO (18:52)
[2025-01-12 20:48] VITALS: BP 141/70; PULSE 112; RESP 16; TEMP 36.7; O2SAT 95
[2025-01-13 02:28] VITALS: BP 137/76
[2025-01-13 07:10] VITALS: BP 120/71; PULSE 97; RESP 18; TEMP 36.4; O2SAT 98
[2025-01-13] MEDS: Nicotine 14 MG PATCH.TD24 TRANSDERMA (07:17)
[2025-01-13] MEDS: Milk of Magnesia 30 ML ORAL.SUSP PO (08:47)
[2025-01-13 09:04] VITALS: BP 120/62
--- NOTE | 2025-01-13 12:18 | P.PNPSI_ITS ---
Subjective Subjective Date of Service: 01/13/25 Reason For Visit: Crisis Interim History: seen in her room. relatively interactive. slowed, appears having difficulty processing. declines to sign in voluntarily. states she is having trouble sleeping but declines any changes in medications mgmt to aid her sleep. per staff, anxious. taking meds. polite, but paranoid. better at times. progressively worse overnight. slept about 2 hours only. Mental Status Exam Mental Status Exam Narrative: Appearance: adequately dressed and groomed Behavior: PMR Speech: clear, regular rate/rhythm, spontaneous. incr ALLEN. TP: linear but delayed TC: topical Mood: euthymic Affect: guarded AH/VH: none expressed Insight/judgment: impaired x 2. Memory/cog: alert, impaired secondary to psychiatric symptoms. Diagnostics Vital Signs (24Hr): Vital Signs - 24 hr 01/12/25 17:35 01/12/25 20:48 01/13/25 02:28 Temperature 98.1 F Pulse Rate 112 H Respiratory Rate 16 Blood Pressure 129/60 141/70 H 137/76 Pulse Oximetry 95 Oxygen Delivery Method Room Air 01/13/25 07:10 01/13/25 09:04 Temperature 97.5 F Pulse Rate 97 Respiratory Rate 18 Blood Pressure 120/71 120/62 Pulse Oximetry 98 Oxygen Delivery Method Room Air BMI result Body Mass Index 18.2 Labs 01/09/25 16:36 01/09/25 16:36 Medications Medications Current Medications Acetaminophen (Acetaminophen 325 Mg Tablet) 650 mg PO Q6H PRN PRN Reason: Headache/Pain, Scale 1-10 Last Admin: 01/13/25 08:47 Dose: 650 mg Al Hydroxide/Mg Hydroxide (Magnesium Hydrox/Alum Hydrox 30 Ml Oral.Susp) 30 ml PO Q6H PRN PRN Reason: Heartburn/Nausea Clonidine HCl (Clonidine Hcl 0.2 Mg Tablet) 0.2 mg PO TID PRN; Protocol PRN Reason: Anxiety Last Admin: 01/13/25 09:04 Dose: 0.2 mg Docusate Sodium (Docusate Sodium 100 Mg Capsule) 100 mg PO BID PRN PRN Reason: Constipation Hydrocortisone (Hydrocortisone 2.5 % Rectal Cr 30 Gm Tube) 1 appl [place] DAILY PRN PRN Reason: hemrroids Hydroxyzine HCl (Hydroxyzine Hcl 25 Mg Tablet) 25 mg PO Q6H PRN PRN Reason: mild anxiety Last Admin: 01/13/25 08:43 Dose: 25 mg Magnesium Hydroxide (Milk Of Magnesia 30 Ml Oral.Susp) 30 ml PO DAILY PRN PRN Reason: Constipation Last Admin: 01/13/25 08:47 Dose: 30 ml Nicotine (Nicotine 14 Mg Patch.Td24) 14 mg TRANSDERMA DAILY [facility] Last Admin: 01/13/25 07:17 Dose: 14 mg Nicotine Polacrilex (Nicotine Polacrilex 2 Mg Gum) 4 mg BUCCAL Q2H PRN PRN Reason: Nicotine Cravings Last Admin: 01/13/25 06:19 Dose: 4 mg Risperidone (Risperidone 2 Mg Tablet) 2 mg PO BID [facility] Last Admin: 01/13/25 08:43 Dose: 2 mg Trazodone HCl (Trazodone Hcl 100 Mg Tablet) 100 mg PO BEDTIME MRX1 PRN PRN Reason: Insomnia Last Admin: 01/12/25 23:41 Dose: 100 mg Allergies Allergies Allergy/AdvReac Type Severity Reaction Status Date / Time olanzapine (From Zyprexa) AdvReac Rash Verified 12/31/24 18:41 Assessment & Plan Assessment & Plan (1) Psychosis: Status: Acute Code(s): F29 - Unspecified psychosis not due to a substance or known physiological condition Plan Ms. Sheridan is a 34 year-old woman who presents with s/s of psychosis, disorganized, some degree of paranoia. She had similar episode back in 2020. 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 I do suspect that there may be underlying psychiatric disorder that is triggered by amphetamine use but not necessarily caused by it. Further evaluation to clarify dx is needed. We discussed inpt level of care. We also discussed restarting risperidone 1mg po BID. low dose clonazepam. continue clonidine. 1. IPLOC 2. start risperidone 1mg po BID. Clonazepam 0.5mg po BID. 01/05: Continue current regimen and plans. 01/06: slept only 2 hours, disorganized, decompensated behaviors. unable to interact cogently. refusing risperidone, will offer seroquel instead. possible bipolar diathesis, T/C mood stabilizer. delirium also a possibility, as the mental status change since admission appears to be striking. 01/07: took seroquel 200 last night, slept 5.5 hours. more organized, linear, able to engage today. continue current mgmt. 01/08: refused seroquel last NOC, slept only 30 minutes. agitated, bizarre, disorganized today. commitment paperwork filed. 01/09: refused meds yesterday but got IMs due to behaviors (outbursts, touching peers, yelling, banging doors, pushed her sitter, climbing on tables and chairs. threatening to stab self with pens). more linear and engageable today, once again the day after having takenm medication. agrees to continue to take seroquel 200 mg QHS. 01/10: took seroquel last NOC and slept 4 hours overnight, but bizarre today. less agitation and intrusiveness than yesterday, but still bizarre and fairly intrusive. pt appears willing to take risperidone, will DC seroquel and return to dosing of risperidone 2 mg BID. took first dose this afternoon. court next monday. 01/11 very paranoid, fearful, taking medications 01/12 continue tx. 01/13: appears a bit more organized today than when not taking medications, altough slow and processing poorly. declines to sign CV. commitment hearing tomorrow. Reason for continued inpatient stay Substantial Risk for: inability to function Time Spent With Patient Time: Total time managing care of this patient today __25__ minutes.
--- NOTE | 2025-01-13 22:22 | PC.NURSE ---
This nurse attempted to give Virgilio her HS medications at 2114 and patient attempted to walk away and nurse took the cup of medications out of patient's right hand. [place] with her left hand then grabbed nurse's badge and attempted to pull off from my shirt. Nurse took hold of patient's hand and was able to prevent patient from removing nurse's badge. Patient then walked away and nurse put medications in WOW drawer.
--- NOTE | 2025-01-13 22:26 | PC.NURSE ---
At 2124 nurse observed [place] attempt to grab the badge of [facility] Ray. Nurse observed that Ray was able to prevent patient from getting hold of badge. Patient then walked away.
--- NOTE | 2025-01-13 22:28 | PC.NURSE ---
AT 2140 nurse attempted to give [place] her medications, Patient took the cup of medications and attempted to run away. Patient then reached up to grab nurse's badge again. Nurse took hold of patient's left arm above left elbow to prevent her from reaching badge. Nurse then took medications out of patient's right hand and returned them to his WOW drawer.
--- NOTE | 2025-01-13 22:31 | PC.NURSE ---
At 2150 this Nurse asked fellow female nurse to attempt to give patient her medications. Patient brought medication cup up to her mouth and then threw the medications into the trash bag. Nurse recorded this a a medication refusal.
[2025-01-13 23:50] VITALS: BP 143/74; PULSE 117
--- NOTE | 2025-01-14 02:07 | PC.NURSE ---
AT 2320 patient became a danger to herself attempting to jump over glass partition in nursing station on M[address]. 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 Security was called to assist as behavioral continued to escalate. Patient agreed to talk oral medications when the CLINICAL NEUROPSYCHOLOGIST and security arrived. patient given Risperdal, Ativan, and Trazodone PO.
[2025-01-14 02:45] VITALS: BP 147/76; PULSE 116
[2025-01-14] MEDS: Nicotine 14 MG PATCH.TD24 TRANSDERMA ×2 (06:59→10:27)
[2025-01-14 08:00] VITALS: RESP 18
[2025-01-14 10:24] VITALS: BP 128/74
--- NOTE | 2025-01-14 15:01 | HO.PSYCHPN ---
Subjective Subjective Date of Service: 01/14/25 Reason For Visit: Crisis Interim History: calm and quiet with MD. discuss court delay and pt's desire for discharge. pt was encouraged to take medications as prescribed. following MD around unit at other times, approaching MD in [place] and asking, what did you say? as if MD had been talking to her a moment before, which had not been the case. per staff, pt has been labile, visible in the milieu. took meds yesterday morning. attempted to vault into nursing station. slept about 4 hours overnight. took meds last night. this morning grabbing staff badges and touching others. Mental Status Exam Mental Status Exam Narrative: Appearance: adequately dressed and groomed Behavior: PMR Speech: clear, regular rate/rhythm, spontaneous. incr ALLEN. TP: linear but delayed TC: topical Mood: euthymic Affect: guarded AH/VH: none expressed Insight/judgment: impaired x 2. Memory/cog: alert, impaired secondary to psychiatric symptoms. Diagnostics Vital Signs (24Hr): Vital Signs - 24 hr 01/13/25 23:50 01/14/25 02:45 01/14/25 08:00 Pulse Rate 117 H 116 H Respiratory Rate 18 Blood Pressure 143/74 H 147/76 H 01/14/25 10:24 Pulse Rate Respiratory Rate Blood Pressure 128/74 BMI result Body Mass Index 18.2 Labs 01/09/25 16:36 01/09/25 16:36 Medications Medications Current Medications Acetaminophen (Acetaminophen 325 Mg Tablet) 650 mg PO Q6H PRN PRN Reason: Headache/Pain, Scale 1-10 Last Admin: 01/13/25 08:47 Dose: 650 mg Al Hydroxide/Mg Hydroxide (Magnesium Hydrox/Alum Hydrox 30 Ml Oral.Susp) 30 ml PO Q6H PRN PRN Reason: Heartburn/Nausea Clonazepam (Clonazepam Odt 0.5 Mg Tab.Rapdis) 0.5 mg PO BID [facility] Clonidine HCl (Clonidine Hcl 0.2 Mg Tablet) 0.2 mg PO TID PRN; Protocol PRN Reason: Anxiety Last Admin: 01/14/25 10:24 Dose: 0.2 mg Docusate Sodium (Docusate Sodium 100 Mg Capsule) 100 mg PO BID PRN PRN Reason: Constipation Hydrocortisone (Hydrocortisone 2.5 % Rectal Cr 30 Gm Tube) 1 appl [place] DAILY PRN PRN Reason: hemrroids Hydroxyzine HCl (Hydroxyzine Hcl 25 Mg Tablet) 25 mg PO Q6H PRN PRN Reason: mild anxiety Last Admin: 01/14/25 10:24 Dose: 25 mg Magnesium Hydroxide (Milk Of Magnesia 30 Ml Oral.Susp) 30 ml PO DAILY PRN PRN Reason: Constipation Last Admin: 01/13/25 08:47 Dose: 30 ml Nicotine (Nicotine 14 Mg Patch.Td24) 14 mg TRANSDERMA DAILY [facility] Last Admin: 01/14/25 10:27 Dose: 14 mg Nicotine Polacrilex (Nicotine Polacrilex 2 Mg Gum) 4 mg BUCCAL Q2H PRN PRN Reason: Nicotine Cravings Last Admin: 01/14/25 05:06 Dose: 4 mg Risperidone (Risperidone 2 Mg Tablet) 2 mg PO BID VERONICA On Hold: 01/14/25 15:00 Last Admin: 01/14/25 08:51 Dose: 2 mg Risperidone (Risperidone Oral Doris 1 Mg/Ml Solution) 2 mg PO BID [facility]ICA Trazodone HCl (Trazodone Hcl 100 Mg Tablet) 100 mg PO BEDTIME MRX1 PRN PRN Reason: Insomnia Last Admin: 01/13/25 23:38 Dose: 100 mg Allergies Allergies Allergy/AdvReac Type Severity Reaction Status Date / Time olanzapine (From Zyprexa) AdvReac Rash Verified 12/31/24 18:41 Assessment & Plan Assessment & Plan (1) Psychosis: Status: Acute Code(s): F29 - Unspecified psychosis not due to a substance or known physiological condition Plan Ms. Sheridan is a 34 year-old woman who presents with s/s of psychosis, disorganized, some degree of paranoia. She had similar episode back in 2020. 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 I do suspect that there may be underlying psychiatric disorder that is triggered by amphetamine use but not necessarily caused by it. Further evaluation to clarify dx is needed. We discussed inpt level of care. We also discussed restarting risperidone 1mg po BID. low dose clonazepam. continue clonidine. 1. IPLOC 2. start risperidone 1mg po BID. Clonazepam 0.5mg po BID. 01/05: Continue current regimen and plans. 01/06: slept only 2 hours, disorganized, decompensated behaviors. unable to interact cogently. refusing risperidone, will offer seroquel instead. possible bipolar diathesis, T/C mood stabilizer. delirium also a possibility, as the mental status change since admission appears to be striking. 01/07: took seroquel 200 last night, slept 5.5 hours. more organized, linear, able to engage today. continue current mgmt. 01/08: refused seroquel last NOC, slept only 30 minutes. agitated, bizarre, disorganized today. commitment paperwork filed. 01/09: refused meds yesterday but got IMs due to behaviors (outbursts, touching peers, yelling, banging doors, pushed her sitter, climbing on tables and chairs. threatening to stab self with pens). more linear and engageable today, once again the day after having takenm medication. agrees to continue to take seroquel 200 mg QHS. 01/10: took seroquel last NOC and slept 4 hours overnight, but bizarre today. less agitation and intrusiveness than yesterday, but still bizarre and fairly intrusive. pt appears willing to take risperidone, will DC seroquel and return to dosing of risperidone 2 mg BID. took first dose this afternoon. court next monday. 01/11 very paranoid, fearful, taking medications 01/12 continue tx. 01/13: appears a bit more organized today than when not taking medications, although slow and processing poorly. declines to sign CV. commitment hearing tomorrow. 01/14: hearing continued until 01/24 for SINDY. add klonopin 0.5 BID ODT, change risperidone formulation to liquid (pt has been inducing vomiting repeatedly with toothbrush). hold toothbrush unless actively brushing teeth. continues interactive to some extent with MD today, but has been grabbing badges, touching others, and tried to vault into the nursing station in the past 24H. Reason for continued inpatient stay Substantial Risk for: harm to self, harm to others and inability to function Time Spent With Patient Time: Total time managing care of this patient today __35__ minutes.
[2025-01-14 20:00] VITALS: BP 126/77; PULSE 125; RESP 16; TEMP 36.4; O2SAT 99
--- NOTE | 2025-01-15 03:31 | PC.NURSE ---
patient with psychomotor agitation all night. not sleeping. does not want to go into her room and appears paranoid. moving belongings into the dayroom. walking the hallways, stripping off clothing requiring re direction to keep clothing on. swinging her sweater in her hand above her head and looking at staff ''I can do this if I'm not hitting anyone'' mood lability from crying and appearing distressed to having a furrowed brow expressing anger. she is climbing on furniture, climbing the cove with the patient phone, attempting to supervisor picking crew the ottoman in day room. she has a focus on the hallway mirrors and is self critical when she looks into the mirror. attempting to climb over the nurses station window x2 and stating ''if you want to see erratic behavior I'll show you'' running down the [place] to the nurses station and asking ''are you ok, I just heard you fall'' (this did not happen) asking to check on another female ''is that what you do, just let people ?'' pacing, running, requiring frequent re direction. difficult to console, difficult to ground.
--- NOTE | 2025-01-15 06:14 | PC.NURSE ---
patients behavior slowed when she began exhibiting fatigue. walking slower, talking slower. in AM described a sense of depersonalization she was experiencing and questioning why staff could not see her as she see's herself. crying at times. feelings of dread that if she sleeps she will .
--- NOTE | 2025-01-15 06:48 | PC.NURSE ---
patient is calm and contemplative. brow is furrowed. asking if she ''should call and say good bye before trying to go to sleep'' ''I know I'm going to '' also asking ''if I go to sleep here will i wake up somewhere else?'' ''is everyone here ?''
[2025-01-15] MEDS: diazePAM 10 MG/2 ML CARTRIDGE IM (12:58)
[2025-01-15 13:00] VITALS: BP 120/57; PULSE 100; RESP 18; TEMP 36.8
[2025-01-15 13:15] VITALS: BP 115/62; PULSE 100; RESP 18; TEMP 36.8
--- NOTE | 2025-01-15 13:34 | HO.PSYEVENT ---
Event Note Date of Service: 01/15/25 Psych Restraint Event Note: agitated, threatening to punch staff, refusing PO meds, not redirectable, intrusive and aggressive with peers and staff Time Spent With Patient Time: Total time managing care of this patient today __35__ minutes.
--- NOTE | 2025-01-15 13:38 | PC.NURSE ---
[place] was very physically active throughout the morning. She was intrusive with peers entering their personal space despite verbal redirections and limits set by staff and peers. Patient was offered quiet space, po meds which she refused on 3 separate offers, offered food, fluids, time to vent, music, art supplies and phone access to contact family or friends. She is on 1:1 with staff, at times requiring 2-3 staff to prevent altercations with peers. When redirected by this RN she verbally threatened me. She later made a fist while threatening me and later swung closed fist at me while verbally threatening me. As behavior was escalating, Dr Franklin was informed and pt was restrained physically, mechanically and medication restraint was administered per MD order. Security was called and pt was escorted to anteroom. She placed herself on the floor and was flailing, uncooperative with ordered IM medications. She was placed in restraint chair for her safety and meds were administered IM per MD order. At that time pt was thrashing in chair and verbally threatening to assault RN. At 1315 patient was calmer and although she was still saying I want to hurt RN she agreed to refrain from assault and so was released from restraint chair. She walked to the bed and laid down and fell asleep.
--- NOTE | 2025-01-15 14:30 | P.PNPSI_ITS ---
Subjective Subjective Date of Service: 01/15/25 Reason For Visit: Crisis Interim History: observed pacing the halls with 1:1. strong staring at MD at various points. later int he morning pt intrusive and provocative toward peers, then began threatening to punch nursing staff. refusing PO medications, was restrained and given IM medications. napping afterward. per staff, sec 7, 1:1, paranoid, med compliant in the morning. running. tried to make herself vomit after taking PRN. labile. ate her feces in the shower and tried to feed it to her 1:1. crawling under tables. tried to jump into nurses station x2. took her shirt off and swinging it around. did not sleep at all. slept at 7:30am. Mental Status Exam Mental Status Exam Narrative: Appearance: adequately dressed and groomed Behavior: pacing the [place] Speech: none observed TP: unknown TC: unknown Mood: unknown Affect: blunted AH/VH: none expressed Insight/judgment: impaired x 2. Memory/cog: alert, impaired secondary to psychiatric symptoms. Diagnostics Vital Signs (24Hr): Vital Signs - 24 hr 01/14/25 20:00 Temperature 97.6 F Pulse Rate 125 H Respiratory Rate 16 Blood Pressure 126/77 Pulse Oximetry 99 Oxygen Delivery Method Room Air BMI result Body Mass Index 18.2 Labs 01/09/25 16:36 01/09/25 16:36 Medications Medications Current Medications Acetaminophen (Acetaminophen 325 Mg Tablet) 650 mg PO Q6H PRN PRN Reason: Headache/Pain, Scale 1-10 Last Admin: 01/13/25 08:47 Dose: 650 mg Al Hydroxide/Mg Hydroxide (Magnesium Hydrox/Alum Hydrox 30 Ml Oral.Susp) 30 ml PO Q6H PRN PRN Reason: Heartburn/Nausea Clonidine HCl (Clonidine Hcl 0.2 Mg Tablet) 0.2 mg PO TID PRN; Protocol PRN Reason: Anxiety Last Admin: 01/14/25 10:24 Dose: 0.2 mg Divalproex Sodium (Divalproex Sodium 500 Mg Tablet.Dr) 500 mg PO BID VERONICA Last Admin: 01/15/25 12:11 Dose: Not Given Docusate Sodium (Docusate Sodium 100 Mg Capsule) 100 mg PO BID PRN PRN Reason: Constipation Hydrocortisone (Hydrocortisone 2.5 % Rectal Cr 30 Gm Tube) 1 appl [place] DAILY PRN PRN Reason: hemrroids Hydroxyzine HCl (Hydroxyzine Hcl 25 Mg Tablet) 25 mg PO Q6H PRN PRN Reason: mild anxiety Last Admin: 01/14/25 10:24 Dose: 25 mg Magnesium Hydroxide (Milk Of Magnesia 30 Ml Oral.Susp) 30 ml PO DAILY PRN PRN Reason: Constipation Last Admin: 01/13/25 08:47 Dose: 30 ml Nicotine (Nicotine 14 Mg Patch.Td24) 14 mg TRANSDERMA DAILY [facility] Last Admin: 01/15/25 10:37 Dose: Not Given Nicotine Polacrilex (Nicotine Polacrilex 2 Mg Gum) 4 mg BUCCAL Q2H PRN PRN Reason: Nicotine Cravings Last Admin: 01/14/25 23:00 Dose: 4 mg Risperidone (Risperidone 2 Mg Tablet) 2 mg PO BID [facility] Last Admin: 01/14/25 08:51 Dose: 2 mg Trazodone HCl (Trazodone Hcl 100 Mg Tablet) 100 mg PO BEDTIME MRX1 PRN PRN Reason: Insomnia Last Admin: 01/13/25 23:38 Dose: 100 mg Allergies Allergies Allergy/AdvReac Type Severity Reaction Status Date / Time olanzapine (From Zyprexa) AdvReac Rash Verified 12/31/24 18:41 Assessment & Plan Assessment & Plan (1) Psychosis: Status: Acute Code(s): F29 - Unspecified psychosis not due to a substance or known physiological condition Plan Ms. Sheridan is a 34 year-old woman who presents with s/s of psychosis, disorganized, some degree of paranoia. She had similar episode back in 2020. 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 I do suspect that there may be underlying psychiatric disorder that is triggered by amphetamine use but not necessarily caused by it. Further evaluation to clarify dx is needed. We discussed inpt level of care. We also discussed restarting risperidone 1mg po BID. low dose clonazepam. continue clonidine. 1. IPLOC 2. start risperidone 1mg po BID. Clonazepam 0.5mg po BID. 01/05: Continue current regimen and plans. 01/06: slept only 2 hours, disorganized, decompensated behaviors. unable to interact cogently. refusing risperidone, will offer seroquel instead. possible bipolar diathesis, T/C mood stabilizer. delirium also a possibility, as the mental status change since admission appears to be striking. 01/07: took seroquel 200 last night, slept 5.5 hours. more organized, linear, able to engage today. continue current mgmt. 01/08: refused seroquel last NOC, slept only 30 minutes. agitated, bizarre, disorganized today. commitment paperwork filed. 01/09: refused meds yesterday but got IMs due to behaviors (outbursts, touching peers, yelling, banging doors, pushed her sitter, climbing on tables and chairs. threatening to stab self with pens). more linear and engageable today, once again the day after having takenm medication. agrees to continue to take seroquel 200 mg QHS. 01/10: took seroquel last NOC and slept 4 hours overnight, but bizarre today. less agitation and intrusiveness than yesterday, but still bizarre and fairly intrusive. pt appears willing to take risperidone, will DC seroquel and return to dosing of risperidone 2 mg BID. took first dose this afternoon. court next monday. 01/11 very paranoid, fearful, taking medications 01/12 continue tx. 01/13: appears a bit more organized today than when not taking medications, although slow and processing poorly. declines to sign CV. commitment hearing tomorrow. 01/14: hearing continued until 01/24 for SINDY. add klonopin 0.5 BID ODT, change risperidone formulation to liquid (pt has been inducing vomiting repeatedly with toothbrush). hold toothbrush unless actively brushing teeth. continues interactive to some extent with MD today, but has been grabbing badges, touching others, and tried to vault into the nursing station in the past 24H. 01/15: IM medication after threatening to punch temporary staff accountant with intrusive and aggressive behaviors toward peers. pt did not take klonopin as ordered yesterday. DC klonopin and start VPA 500 BID. per staff, running. tried to make herself vomit after taking PRN. labile. ate her feces in the shower and tried to feed it to her 1:1. crawling under tables. tried to jump into nurses station x2. took her shirt off and swinging it around. did not sleep at all. slept at 7:30am. Reason for continued inpatient stay Substantial Risk for: harm to self, harm to others and inability to function Time Spent With Patient Time: Total time managing care of this patient today __35__ minutes.
--- NOTE | 2025-01-15 14:31 | HO.BHRESTREX ---
Behavioral Restraint Exam Behavioral Health Restraint Exam Type of Restraint: Physical Hold, Medication and Mechanical Reason for Restraint: Substantial Risk Medical Concerns for Restraint: No medical concerns, pt w/o acute inj / no noted resp/VS abnormalities Behavioral Assessment / Plan: No further behavioral concerns, continue current plan.
[2025-01-15 20:15] VITALS: BP 139/79; PULSE 102; RESP 16; TEMP 36.8; O2SAT 97
[2025-01-15] MEDS: Milk of Magnesia 30 ML ORAL.SUSP PO (22:27)
[2025-01-16 07:00] VITALS: BMI 19.1
[2025-01-16 07:20] VITALS: BP 132/74; PULSE 108; RESP 14; TEMP 36.4; O2SAT 97
[2025-01-16] MEDS: Nicotine 14 MG PATCH.TD24 TRANSDERMA (08:28)
--- NOTE | 2025-01-16 09:38 | PC.NURSE ---
0930 this pt witnessed another pt throwing items in the hallway, making pt angry statying Why he is not on a 1:1 pt then went into room and punched wall with right hand. Pt rates pain 100/10, and I can't move my fingers. Reddened knuckles, no swelling noted, pt did move hand when provided ice. Pt demonstrates flexion of the fingers and not being able to make a fist. Pt offered pain meds, pt refused. Pt offered ice pack which pt accepts. Provider notified of incident, no new orders at this time. Will continue to monitor.
--- NOTE | 2025-01-16 13:16 | HO.PSYCHPN ---
Subjective Subjective Date of Service: 01/16/25 Reason For Visit: Crisis Interim History: bizarre staring, aimlessly walking the halls with 1:1. on attempted interview, remains mute and walks away from MD. per staff, labile, agitated, aggressive, threatening, swung at RN yesterday and received IMs. refused VPA, accepted risperidone. slept about 2 hours overnight. Mental Status Exam Mental Status Exam Narrative: Appearance: adequately dressed and groomed Behavior: pacing the [place] Speech: none observed TP: unknown TC: unknown Mood: unknown Affect: blunted AH/VH: none expressed Insight/judgment: impaired x 2. Memory/cog: alert, impaired secondary to psychiatric symptoms. Diagnostics Vital Signs (24Hr): Vital Signs - 24 hr 01/15/25 20:15 01/16/25 07:20 Temperature 98.2 F 97.6 F Pulse Rate 102 H 108 H Respiratory Rate 16 14 Blood Pressure 139/79 132/74 Pulse Oximetry 97 97 Oxygen Delivery Method Room Air Room Air BMI result Body Mass Index 19.1 Labs 01/09/25 16:36 01/09/25 16:36 Imaging Radiology Impressions: ITS Impressions Hand X-Ray 01/16/25 11:30 IMPRESSION: Unremarkable right hand Electronically signed by: Casa Rush MD 01/16/2025 11:46 AM EDT RP Medications Medications Current Medications Acetaminophen (Acetaminophen 325 Mg Tablet) 650 mg PO Q6H PRN PRN Reason: Headache/Pain, Scale 1-10 Last Admin: 01/13/25 08:47 Dose: 650 mg Al Hydroxide/Mg Hydroxide (Magnesium Hydrox/Alum Hydrox 30 Ml Oral.Susp) 30 ml PO Q6H PRN PRN Reason: Heartburn/Nausea Clonidine HCl (Clonidine Hcl 0.2 Mg Tablet) 0.2 mg PO TID PRN; Protocol PRN Reason: Anxiety Last Admin: 01/14/25 10:24 Dose: 0.2 mg Divalproex Sodium (Divalproex Sodium 500 Mg Tablet.Dr) 500 mg PO BID VERONICA Last Admin: 01/16/25 08:22 Dose: 500 mg Docusate Sodium (Docusate Sodium 100 Mg Capsule) 100 mg PO BID PRN PRN Reason: Constipation Hydrocortisone (Hydrocortisone 2.5 % Rectal Cr 30 Gm Tube) 1 appl [place] DAILY PRN PRN Reason: hemrroids Hydroxyzine HCl (Hydroxyzine Hcl 25 Mg Tablet) 25 mg PO Q6H PRN PRN Reason: mild anxiety Last Admin: 01/15/25 22:26 Dose: 25 mg Magnesium Hydroxide (Milk Of Magnesia 30 Ml Oral.Susp) 30 ml PO DAILY PRN PRN Reason: Constipation Last Admin: 01/15/25 22:27 Dose: 30 ml Nicotine (Nicotine 14 Mg Patch.Td24) 14 mg TRANSDERMA DAILY [facility] Last Admin: 01/16/25 08:28 Dose: 14 mg Nicotine Polacrilex (Nicotine Polacrilex 2 Mg Gum) 4 mg BUCCAL Q2H PRN PRN Reason: Nicotine Cravings Last Admin: 01/14/25 23:00 Dose: 4 mg Risperidone (Risperidone 2 Mg Tablet) 2 mg PO BID [facility] Last Admin: 01/16/25 08:55 Dose: 2 mg Trazodone HCl (Trazodone Hcl 100 Mg Tablet) 100 mg PO BEDTIME MRX1 PRN PRN Reason: Insomnia Last Admin: 01/13/25 23:38 Dose: 100 mg Allergies Allergies Allergy/AdvReac Type Severity Reaction Status Date / Time olanzapine (From Zyprexa) AdvReac Rash Verified 12/31/24 18:41 Assessment & Plan Assessment & Plan (1) Psychosis: Status: Acute Code(s): F29 - Unspecified psychosis not due to a substance or known physiological condition Plan Ms. Sheridan is a 34 year-old woman who presents with s/s of psychosis, disorganized, some degree of paranoia. She had similar episode back in 2020. 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 I do suspect that there may be underlying psychiatric disorder that is triggered by amphetamine use but not necessarily caused by it. Further evaluation to clarify dx is needed. We discussed inpt level of care. We also discussed restarting risperidone 1mg po BID. low dose clonazepam. continue clonidine. 1. IPLOC 2. start risperidone 1mg po BID. Clonazepam 0.5mg po BID. 01/05: Continue current regimen and plans. 01/06: slept only 2 hours, disorganized, decompensated behaviors. unable to interact cogently. refusing risperidone, will offer seroquel instead. possible bipolar diathesis, T/C mood stabilizer. delirium also a possibility, as the mental status change since admission appears to be striking. 01/07: took seroquel 200 last night, slept 5.5 hours. more organized, linear, able to engage today. continue current mgmt. 01/08: refused seroquel last NOC, slept only 30 minutes. agitated, bizarre, disorganized today. commitment paperwork filed. 01/09: refused meds yesterday but got IMs due to behaviors (outbursts, touching peers, yelling, banging doors, pushed her sitter, climbing on tables and chairs. threatening to stab self with pens). more linear and engageable today, once again the day after having takenm medication. agrees to continue to take seroquel 200 mg QHS. 01/10: took seroquel last NOC and slept 4 hours overnight, but bizarre today. less agitation and intrusiveness than yesterday, but still bizarre and fairly intrusive. pt appears willing to take risperidone, will DC seroquel and return to dosing of risperidone 2 mg BID. took first dose this afternoon. court next monday. 01/11 very paranoid, fearful, taking medications 01/12 continue tx. 01/13: appears a bit more organized today than when not taking medications, although slow and processing poorly. declines to sign CV. commitment hearing tomorrow. 01/14: hearing continued until 01/24 for SINDY. add klonopin 0.5 BID ODT, change risperidone formulation to liquid (pt has been inducing vomiting repeatedly with toothbrush). hold toothbrush unless actively brushing teeth. continues interactive to some extent with MD today, but has been grabbing badges, touching others, and tried to vault into the nursing station in the past 24H. 01/15: IM medication after threatening to punch workforce staffing advisor with intrusive and aggressive behaviors toward peers. pt did not take klonopin as ordered yesterday. DC klonopin and start VPA 500 BID. per staff, running. tried to make herself vomit after taking PRN. labile. ate her feces in the shower and tried to feed it to her 1:1. crawling under tables. tried to jump into nurses station x2. took her shirt off and swinging it around. did not sleep at all. slept at 7:30am. 01/16: refusing VPA, taking risperidone. napped after IMs yesterday. has been bizarre and labile since. slept only 2 hours overnight. continue current mgmt. Reason for continued inpatient stay Substantial Risk for: inability to function Time Spent With Patient Time: Total time managing care of this patient today __25__ minutes.
[2025-01-16 19:30] VITALS: BP 141/77; PULSE 117; RESP 14; TEMP 36.7; O2SAT 99
[2025-01-16 21:54] VITALS: BP 122/88
[2025-01-17 07:51] VITALS: BP 127/60; PULSE 100; RESP 16; TEMP 2.5; TEMP 36.5; O2SAT 98
[2025-01-17] MEDS: Nicotine 14 MG PATCH.TD24 TRANSDERMA (08:23)
[2025-01-17 08:49] VITALS: BP 128/65
[2025-01-17] MEDS: Milk of Magnesia 30 ML ORAL.SUSP PO (08:49)
--- NOTE | 2025-01-17 14:20 | HO.PSYCHPN ---
Subjective Subjective Date of Service: 01/17/25 Reason For Visit: Crisis Interim History: wandering the halls, appearing vacant. states nobody is offering her VPA. no questions or complaints. per staff, remains on 1:1. punching and kicking beard yesterday. hand xray shows no Fx. stripping off in milieu. refusing VPA. attempting to intimidate staff, grabbing stress balls out of staff's hands. Mental Status Exam Mental Status Exam Narrative: Appearance: adequately dressed and groomed Behavior: pacing the [place] Speech: decr amount and loudness. incr latency. TP: linear TC: no overt delusions expressed, although denies VPA is being offered to her when it clearly has been Mood: unknown Affect: blunted AH/VH: none expressed Insight/judgment: impaired x 2. Memory/cog: alert, impaired secondary to psychiatric symptoms. Diagnostics Vital Signs (24Hr): Vital Signs - 24 hr 01/16/25 19:30 01/16/25 21:54 01/17/25 07:51 Temperature 98.1 F 36.5 F L Pulse Rate 117 H 100 Respiratory Rate 14 16 Blood Pressure 141/77 H 122/88 127/60 Pulse Oximetry 99 98 Oxygen Delivery Method Room Air Room Air 01/17/25 08:49 Temperature Pulse Rate Respiratory Rate Blood Pressure 128/65 Pulse Oximetry Oxygen Delivery Method BMI result Body Mass Index 19.1 Labs 01/09/25 16:36 01/09/25 16:36 Imaging Radiology Impressions: ITS Impressions Hand X-Ray 01/16/25 11:30 IMPRESSION: Unremarkable right hand Electronically signed by: Casa Rush MD 01/16/2025 11:46 AM EDT Medications Medications Current Medications Acetaminophen (Acetaminophen 325 Mg Tablet) 650 mg PO Q6H PRN PRN Reason: Headache/Pain, Scale 1-10 Last Admin: 01/13/25 08:47 Dose: 650 mg Al Hydroxide/Mg Hydroxide (Magnesium Hydrox/Alum Hydrox 30 Ml Oral.Susp) 30 ml PO Q6H PRN PRN Reason: Heartburn/Nausea Clonidine HCl (Clonidine Hcl 0.2 Mg Tablet) 0.2 mg PO TID PRN; Protocol PRN Reason: Anxiety Last Admin: 01/17/25 08:49 Dose: 0.2 mg Divalproex Sodium (Divalproex Sodium 500 Mg Tablet.) 500 mg PO BID [facility] Last Admin: 01/17/25 10:50 Dose: 500 mg Docusate Sodium (Docusate Sodium 100 Mg Capsule) 100 mg PO BID PRN PRN Reason: Constipation Hydrocortisone (Hydrocortisone 2.5 % Rectal Cr 30 Gm Tube) 1 appl [place] DAILY PRN PRN Reason: hemrroids Hydroxyzine HCl (Hydroxyzine Hcl 25 Mg Tablet) 25 mg PO Q6H PRN PRN Reason: mild anxiety Last Admin: 01/17/25 08:49 Dose: 25 mg Magnesium Hydroxide (Milk Of Magnesia 30 Ml Oral.Susp) 30 ml PO DAILY PRN PRN Reason: Constipation Last Admin: 01/17/25 08:49 Dose: 30 ml Nicotine (Nicotine 14 Mg Patch.Td24) 14 mg TRANSDERMA DAILY [facility] Last Admin: 01/17/25 08:23 Dose: 14 mg Nicotine Polacrilex (Nicotine Polacrilex 2 Mg Gum) 4 mg BUCCAL Q2H PRN PRN Reason: Nicotine Cravings Last Admin: 01/17/25 06:39 Dose: 4 mg Risperidone (Risperidone 2 Mg Tablet) 2 mg PO BID [facility] Last Admin: 01/17/25 05:58 Dose: 2 mg Trazodone HCl (Trazodone Hcl 100 Mg Tablet) 100 mg PO BEDTIME MRX1 PRN PRN Reason: Insomnia Last Admin: 01/13/25 23:38 Dose: 100 mg Allergies Allergies Allergy/AdvReac Type Severity Reaction Status Date / Time olanzapine (From Zyprexa) AdvReac Rash Verified 12/31/24 18:41 Assessment & Plan Assessment & Plan (1) Psychosis: Status: Acute Code(s): F29 - Unspecified psychosis not due to a substance or known physiological condition Plan Ms. Sheridan is a 34 year-old woman who presents with s/s of psychosis, disorganized, some degree of paranoia. She had similar episode back in 2020. 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 I do suspect that there may be underlying psychiatric disorder that is triggered by amphetamine use but not necessarily caused by it. Further evaluation to clarify dx is needed. We discussed inpt level of care. We also discussed restarting risperidone 1mg po BID. low dose clonazepam. continue clonidine. 1. IPLOC 2. start risperidone 1mg po BID. Clonazepam 0.5mg po BID. 01/05: Continue current regimen and plans. 01/06: slept only 2 hours, disorganized, decompensated behaviors. unable to interact cogently. refusing risperidone, will offer seroquel instead. possible bipolar diathesis, T/C mood stabilizer. delirium also a possibility, as the mental status change since admission appears to be striking. 01/07: took seroquel 200 last night, slept 5.5 hours. more organized, linear, able to engage today. continue current mgmt. 01/08: refused seroquel last NOC, slept only 30 minutes. agitated, bizarre, disorganized today. commitment paperwork filed. 01/09: refused meds yesterday but got IMs due to behaviors (outbursts, touching peers, yelling, banging doors, pushed her sitter, climbing on tables and chairs. threatening to stab self with pens). more linear and engageable today, once again the day after having takenm medication. agrees to continue to take seroquel 200 mg QHS. 01/10: took seroquel last NOC and slept 4 hours overnight, but bizarre today. less agitation and intrusiveness than yesterday, but still bizarre and fairly intrusive. pt appears willing to take risperidone, will DC seroquel and return to dosing of risperidone 2 mg BID. took first dose this afternoon. court next monday. 01/11 very paranoid, fearful, taking medications 01/12 continue tx. 01/13: appears a bit more organized today than when not taking medications, although slow and processing poorly. declines to sign CV. commitment hearing tomorrow. 01/14: hearing continued until 01/24 for SINDY. add klonopin 0.5 BID ODT, change risperidone formulation to liquid (pt has been inducing vomiting repeatedly with toothbrush). hold toothbrush unless actively brushing teeth. continues interactive to some extent with MD today, but has been grabbing badges, touching others, and tried to vault into the nursing station in the past 24H. 01/15: IM medication after threatening to punch staff development educator with intrusive and aggressive behaviors toward peers. pt did not take klonopin as ordered yesterday. DC klonopin and start VPA 500 BID. per staff, running. tried to make herself vomit after taking PRN. labile. ate her feces in the shower and tried to feed it to her 1:1. crawling under tables. tried to jump into nurses station x2. took her shirt off and swinging it around. did not sleep at all. slept at 7:30am. 01/16: refusing VPA, taking risperidone. napped after IMs yesterday. has been bizarre and labile since. slept only 2 hours overnight. continue current mgmt. 01/17: agitated, bizarre, and aggressive behaviors yesterday (punching and kicking beard, stripping off in milieu, attempting to intimidate staff, grabbing stress balls out of staff's hands). did take VPA this morning on its being offered a second time. more calm today. taking risperidone. Reason for continued inpatient stay Substantial Risk for: harm to self, harm to others and inability to function Time Spent With Patient Time: Total time managing care of this patient today __25__ minutes.
[2025-01-17 16:28] VITALS: BP 145/77
[2025-01-17 19:45] VITALS: BP 126/67; PULSE 118; RESP 16; TEMP 36.4; O2SAT 96
[2025-01-17 22:41] VITALS: BP 128/68
[2025-01-18] MEDS: Nicotine 14 MG PATCH.TD24 TRANSDERMA (06:28)
--- NOTE | 2025-01-18 07:20 | PC.NURSE ---
Venice has been restless, intrusive, evasive, making multiple requests for items and then refusing them. angry about her phone stating the she knows Sonia (floor RN) has taken her phone and was insisting that Sonia be called at home regarding her phone . GERARDO Nice informed this consumer loan underwriter and the patient that Venice's mother had brought her phone in so the patient could acquire phone numbers but that the phone had been brought back home by the patients mother. she was also asking for a pair of old man jeans that were my grandfathers, they are very special to me and asked this consumer loan underwriter why I had stolen them. making multiple requests to access her patient portal and to have various documents generated for her. she had 2 phone calls with her mother throughout the night. and although intense and disorganized she was able to maintain behavioral control. Venice has asked for her am medications to be given early for the past 2 days. this consumer loan underwriter obtained permission from Dr. Judd Franklin to administer am medications early. Venice accepted her nicotine patch and Risperdal but refused her Depakote
[2025-01-18 08:00] VITALS: BP 130/59; PULSE 110; RESP 14; TEMP 35.9; O2SAT 99
--- NOTE | 2025-01-18 14:05 | P.PNPSI_ITS ---
Subjective Subjective Date of Service: 01/18/25 Reason For Visit: Crisis Interim History: wandering, inconsistent responses. are you alive? asking for discharge. informed of legal status. per staff, disorganized, taking VPA sometimes. demanding DC. saying we stole her things. calling mother and application support administrator int he middle of the night. slept 3.5-4 hours. Mental Status Exam Mental Status Exam Narrative: Appearance: adequately dressed and groomed Behavior: pacing the [place] Speech: decr amount and loudness. incr latency. TP: linear TC: asks MD if he is alive Mood: unknown Affect: blunted AH/VH: none expressed Insight/judgment: impaired x 2. Memory/cog: alert, impaired secondary to psychiatric symptoms. Diagnostics Vital Signs (24Hr): Vital Signs - 24 hr 01/17/25 16:28 01/17/25 19:45 01/17/25 22:41 Temperature 97.6 F Pulse Rate 118 H Respiratory Rate 16 Blood Pressure 145/77 H 126/67 128/68 Pulse Oximetry 96 Oxygen Delivery Method Room Air 01/18/25 08:00 Temperature 96.7 F L Pulse Rate 110 H Respiratory Rate 14 Blood Pressure 130/59 L Pulse Oximetry 99 Oxygen Delivery Method Room Air BMI result Body Mass Index 19.1 Labs 01/09/25 16:36 01/09/25 16:36 Imaging Radiology Impressions: ITS Impressions Hand X-Ray 01/16/25 11:30 IMPRESSION: Unremarkable right hand Electronically signed by: Casa Rush MD 01/16/2025 11:46 AM EDT Medications Medications Current Medications Acetaminophen (Acetaminophen 325 Mg Tablet) 650 mg PO Q6H PRN PRN Reason: Headache/Pain, Scale 1-10 Last Admin: 01/13/25 08:47 Dose: 650 mg Al Hydroxide/Mg Hydroxide (Magnesium Hydrox/Alum Hydrox 30 Ml Oral.Susp) 30 ml PO Q6H PRN PRN Reason: Heartburn/Nausea Clonidine HCl (Clonidine Hcl 0.2 Mg Tablet) 0.2 mg PO TID PRN; Protocol PRN Reason: Anxiety Last Admin: 01/17/25 22:41 Dose: 0.2 mg Divalproex Sodium (Divalproex Sodium 500 Mg Tablet.) 500 mg PO BID [facility] Last Admin: 01/18/25 06:30 Dose: Not Given Docusate Sodium (Docusate Sodium 100 Mg Capsule) 100 mg PO BID PRN PRN Reason: Constipation Hydrocortisone (Hydrocortisone 2.5 % Rectal Cr 30 Gm Tube) 1 appl [place] DAILY PRN PRN Reason: hemrroids Hydroxyzine HCl (Hydroxyzine Hcl 25 Mg Tablet) 25 mg PO Q6H PRN PRN Reason: mild anxiety Last Admin: 01/17/25 22:41 Dose: 25 mg Magnesium Hydroxide (Milk Of Magnesia 30 Ml Oral.Susp) 30 ml PO DAILY PRN PRN Reason: Constipation Last Admin: 01/17/25 08:49 Dose: 30 ml Nicotine (Nicotine 14 Mg Patch.Td24) 14 mg TRANSDERMA DAILY [facility] Last Admin: 01/18/25 06:28 Dose: 14 mg Nicotine Polacrilex (Nicotine Polacrilex 2 Mg Gum) 4 mg BUCCAL Q2H PRN PRN Reason: Nicotine Cravings Last Admin: 01/17/25 22:41 Dose: 4 mg Risperidone (Risperidone 2 Mg Tablet) 2 mg PO BID [facility] Last Admin: 01/18/25 06:29 Dose: 2 mg Trazodone HCl (Trazodone Hcl 100 Mg Tablet) 100 mg PO BEDTIME MRX1 PRN PRN Reason: Insomnia Last Admin: 01/17/25 22:41 Dose: 100 mg Allergies Allergies Allergy/AdvReac Type Severity Reaction Status Date / Time olanzapine (From Zyprexa) AdvReac Rash Verified 12/31/24 18:41 Assessment & Plan Assessment & Plan (1) Psychosis: Status: Acute Code(s): F29 - Unspecified psychosis not due to a substance or known physiological condition Plan Ms. Sheridan is a 34 year-old woman who presents with s/s of psychosis, disorganized, some degree of paranoia. She had similar episode back in 2020. 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 I do suspect that there may be underlying psychiatric disorder that is triggered by amphetamine use but not necessarily caused by it. Further evaluation to clarify dx is needed. We discussed inpt level of care. We also discussed restarting risperidone 1mg po BID. low dose clonazepam. continue clonidine. 1. IPLOC 2. start risperidone 1mg po BID. Clonazepam 0.5mg po BID. 01/05: Continue current regimen and plans. 01/06: slept only 2 hours, disorganized, decompensated behaviors. unable to interact cogently. refusing risperidone, will offer seroquel instead. possible bipolar diathesis, T/C mood stabilizer. delirium also a possibility, as the mental status change since admission appears to be striking. 01/07: took seroquel 200 last night, slept 5.5 hours. more organized, linear, able to engage today. continue current mgmt. 01/08: refused seroquel last NOC, slept only 30 minutes. agitated, bizarre, disorganized today. commitment paperwork filed. 01/09: refused meds yesterday but got IMs due to behaviors (outbursts, touching peers, yelling, banging doors, pushed her sitter, climbing on tables and chairs. threatening to stab self with pens). more linear and engageable today, once again the day after having takenm medication. agrees to continue to take seroquel 200 mg QHS. 01/10: took seroquel last NOC and slept 4 hours overnight, but bizarre today. less agitation and intrusiveness than yesterday, but still bizarre and fairly intrusive. pt appears willing to take risperidone, will DC seroquel and return to dosing of risperidone 2 mg BID. took first dose this afternoon. court next monday. 01/11 very paranoid, fearful, taking medications 01/12 continue tx. 01/13: appears a bit more organized today than when not taking medications, although slow and processing poorly. declines to sign CV. commitment hearing tomorrow. 01/14: hearing continued until 01/24 for SINDY. add klonopin 0.5 BID ODT, change risperidone formulation to liquid (pt has been inducing vomiting repeatedly with toothbrush). hold toothbrush unless actively brushing teeth. continues interactive to some extent with MD today, but has been grabbing badges, touching others, and tried to vault into the nursing station in the past 24H. 01/15: IM medication after threatening to punch workforce staffing advisor with intrusive and aggressive behaviors toward peers. pt did not take klonopin as ordered yesterday. DC klonopin and start VPA 500 BID. per staff, running. tried to make herself vomit after taking PRN. labile. ate her feces in the shower and tried to feed it to her 1:1. crawling under tables. tried to jump into nurses station x2. took her shirt off and swinging it around. did not sleep at all. slept at 7:30am. 01/16: refusing VPA, taking risperidone. napped after IMs yesterday. has been bizarre and labile since. slept only 2 hours overnight. continue current mgmt. 01/17: agitated, bizarre, and aggressive behaviors yesterday (punching and kicking beard, stripping off in milieu, attempting to intimidate staff, grabbing stress balls out of staff's hands). did take VPA this morning on its being offered a second time. more calm today. taking risperidone. 01/18: intermittently refusing VPA, seems to be taking risperidone. asks MD if he is alive, then proposes elbow bump. accusing staff of stealing her things (phone), calling mother and application support administrator in the middle of the night. slept less than 4 hours. Reason for continued inpatient stay Substantial Risk for: harm to self, harm to others and inability to function Time Spent With Patient Time: Total time managing care of this patient today ____ minutes.
[2025-01-18 14:51] VITALS: BP 139/79
[2025-01-18 20:09] VITALS: BP 130/60; PULSE 111; RESP 16; TEMP 36.1; O2SAT 96
[2025-01-19 08:00] VITALS: BP 128/63; PULSE 108; RESP 16; TEMP 36.5; O2SAT 98
[2025-01-19] MEDS: Nicotine 14 MG PATCH.TD24 TRANSDERMA (08:45)
[2025-01-19 09:45] VITALS: BP 130/70
--- NOTE | 2025-01-19 09:48 | PC.NURSE ---
I met with pt and mother today and discussed pt's concerns. 1. She is concerned she has herpes and has requested testing. I will pass on to provider Dr Franklin again today. 2. She is struggling with memory issues - not remembering the time between her 2 psychotic episodes, forgetting her mom has her phone and becomes suspicious of staff re her phone. 3. 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 Mom is doing it per mom's report. 4. Last time she was on risperdal she gained 65 lbs. She has gained >10 here this stay. 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 5. Pt c/o foot pain and is notably pacing most hours of each day. Mother brought in more structured shoes as requested by RN due to pt c/o foot pain. Pt declines tylenol but was compliant with foot soak this am. 6. med compliance: Pt initially refused am meds this morning. When I reapproached her with meds during mother's visit pt stated, I already took them. She believed I was trying to give them twice. With prompting she took her am meds in the presence of mother. In addition I gave her a clonidine prn. Yesterday she had positive effect from clonidine prn, I noted a dramatic decrease in her psychomotor agitation after taking it.
[2025-01-19] MEDS: Milk of Magnesia 30 ML ORAL.SUSP PO (13:43)
--- NOTE | 2025-01-19 13:46 | HO.PSYCHPN ---
Subjective Subjective Date of Service: 01/19/25 Reason For Visit: Crisis Interim History: more lucid. discuss risperidone weight gain, agrees to trial of prolixin. per staff, remains on 1:1, more lucid moments. concerned about weight gain with risperidone. irritable, sarcastic, demanding. HSV? labial lesions. Mental Status Exam Mental Status Exam Narrative: Appearance: adequately dressed and groomed Behavior: pacing the [place] Speech: decr amount and loudness. incr latency. TP: linear TC: germane to context Mood: unknown Affect: blunted AH/VH: none expressed Insight/judgment: impaired x 2. Memory/cog: alert, impaired secondary to psychiatric symptoms. Diagnostics Vital Signs (24Hr): Vital Signs - 24 hr 01/18/25 14:51 01/18/25 20:09 01/19/25 08:00 Temperature 97.0 F 97.7 F Pulse Rate 111 H 108 H Respiratory Rate 16 16 Blood Pressure 139/79 130/60 128/63 Pulse Oximetry 96 98 Oxygen Delivery Method Room Air Room Air 01/19/25 09:45 Temperature Pulse Rate Respiratory Rate Blood Pressure 130/70 Pulse Oximetry Oxygen Delivery Method BMI result Body Mass Index 20.0 Labs 01/09/25 16:36 01/09/25 16:36 Imaging Radiology Impressions: ITS Impressions Hand X-Ray 01/16/25 11:30 IMPRESSION: Unremarkable right hand Electronically signed by: Casa Rush MD 01/16/2025 11:46 AM EDT RP Medications Medications Current Medications Acetaminophen (Acetaminophen 325 Mg Tablet) 650 mg PO Q6H PRN PRN Reason: Headache/Pain, Scale 1-10 Last Admin: 01/18/25 22:16 Dose: 650 mg Al Hydroxide/Mg Hydroxide (Magnesium Hydrox/Alum Hydrox 30 Ml Oral.Susp) 30 ml PO Q6H PRN PRN Reason: Heartburn/Nausea Clonidine HCl (Clonidine Hcl 0.2 Mg Tablet) 0.2 mg PO TID PRN; Protocol PRN Reason: Anxiety Last Admin: 01/19/25 09:45 Dose: 0.2 mg Divalproex Sodium (Divalproex Sodium 500 Mg Tablet.) 500 mg PO BID [facility] Last Admin: 01/19/25 09:35 Dose: 500 mg Docusate Sodium (Docusate Sodium 100 Mg Capsule) 100 mg PO BID PRN PRN Reason: Constipation Hydrocortisone (Hydrocortisone 2.5 % Rectal Cr 30 Gm Tube) 1 appl [place] DAILY PRN PRN Reason: hemrroids Hydroxyzine HCl (Hydroxyzine Hcl 25 Mg Tablet) 25 mg PO Q6H PRN PRN Reason: mild anxiety Last Admin: 01/19/25 06:16 Dose: 25 mg Magnesium Hydroxide (Milk Of Magnesia 30 Ml Oral.Susp) 30 ml PO DAILY PRN PRN Reason: Constipation Last Admin: 01/17/25 08:49 Dose: 30 ml Nicotine (Nicotine 14 Mg Patch.Td24) 14 mg TRANSDERMA DAILY [facility] Last Admin: 01/19/25 08:45 Dose: 14 mg Nicotine Polacrilex (Nicotine Polacrilex 2 Mg Gum) 4 mg BUCCAL Q2H PRN PRN Reason: Nicotine Cravings Last Admin: 01/19/25 06:16 Dose: 4 mg Risperidone (Risperidone 2 Mg Tablet) 2 mg PO BID [facility] Last Admin: 01/19/25 09:35 Dose: 2 mg Risperidone (Risperidone 1 Mg Tablet) 1 mg PO Q4H PRN PRN Reason: agitation Last Admin: 01/19/25 06:16 Dose: 1 mg Trazodone HCl (Trazodone Hcl 100 Mg Tablet) 100 mg PO BEDTIME MRX1 PRN PRN Reason: Insomnia Last Admin: 01/18/25 22:16 Dose: 100 mg Allergies Allergies Allergy/AdvReac Type Severity Reaction Status Date / Time olanzapine (From Zyprexa) AdvReac Rash Verified 12/31/24 18:41 Assessment & Plan Assessment & Plan (1) Psychosis: Status: Acute Code(s): F29 - Unspecified psychosis not due to a substance or known physiological condition Plan Ms. Sheridan is a 34 year-old woman who presents with s/s of psychosis, disorganized, some degree of paranoia. She had similar episode back in 2020. 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 I do suspect that there may be underlying psychiatric disorder that is triggered by amphetamine use but not necessarily caused by it. Further evaluation to clarify dx is needed. We discussed inpt level of care. We also discussed restarting risperidone 1mg po BID. low dose clonazepam. continue clonidine. 1. IPLOC 2. start risperidone 1mg po BID. Clonazepam 0.5mg po BID. 01/05: Continue current regimen and plans. 01/06: slept only 2 hours, disorganized, decompensated behaviors. unable to interact cogently. refusing risperidone, will offer seroquel instead. possible bipolar diathesis, T/C mood stabilizer. delirium also a possibility, as the mental status change since admission appears to be striking. 01/07: took seroquel 200 last night, slept 5.5 hours. more organized, linear, able to engage today. continue current mgmt. 01/08: refused seroquel last NOC, slept only 30 minutes. agitated, bizarre, disorganized today. commitment paperwork filed. 01/09: refused meds yesterday but got IMs due to behaviors (outbursts, touching peers, yelling, banging doors, pushed her sitter, climbing on tables and chairs. threatening to stab self with pens). more linear and engageable today, once again the day after having takenm medication. agrees to continue to take seroquel 200 mg QHS. 01/10: took seroquel last NOC and slept 4 hours overnight, but bizarre today. less agitation and intrusiveness than yesterday, but still bizarre and fairly intrusive. pt appears willing to take risperidone, will DC seroquel and return to dosing of risperidone 2 mg BID. took first dose this afternoon. court next monday. 01/11 very paranoid, fearful, taking medications 01/12 continue tx. 01/13: appears a bit more organized today than when not taking medications, although slow and processing poorly. declines to sign CV. commitment hearing tomorrow. 01/14: hearing continued until 01/24 for SINDY. add klonopin 0.5 BID ODT, change risperidone formulation to liquid (pt has been inducing vomiting repeatedly with toothbrush). hold toothbrush unless actively brushing teeth. continues interactive to some extent with MD today, but has been grabbing badges, touching others, and tried to vault into the nursing station in the past 24H. 01/15: IM medication after threatening to punch staff registered nurse with intrusive and aggressive behaviors toward peers. pt did not take klonopin as ordered yesterday. DC klonopin and start VPA 500 BID. per staff, running. tried to make herself vomit after taking PRN. labile. ate her feces in the shower and tried to feed it to her 1:1. crawling under tables. tried to jump into nurses station x2. took her shirt off and swinging it around. did not sleep at all. slept at 7:30am. 01/16: refusing VPA, taking risperidone. napped after IMs yesterday. has been bizarre and labile since. slept only 2 hours overnight. continue current mgmt. 01/17: agitated, bizarre, and aggressive behaviors yesterday (punching and kicking beard, stripping off in milieu, attempting to intimidate staff, grabbing stress balls out of staff's hands). did take VPA this morning on its being offered a second time. more calm today. taking risperidone. 01/18: intermittently refusing VPA, seems to be taking risperidone. asks MD if he is alive, then proposes elbow bump. accusing staff of stealing her things (phone), calling mother and beam racker in the middle of the night. slept less than 4 hours. 01/19: more lucid today. concerned about risperidone weight gain. agrees to DC risperidone and try prolixin instead, starting at 2.5 BID. Reason for continued inpatient stay Substantial Risk for: harm to self, harm to others, inability to function and rapid decompensation Time Spent With Patient Time: Total time managing care of this patient today __25__ minutes.
[2025-01-19 16:53] VITALS: BP 116/60
--- NOTE | 2025-01-19 19:57 | PC.NURSE ---
Medications requested and received at 1945 per pt request. Administered Depakote, Risperidone, Proxlixin, and Hydroxyzine.
[2025-01-19 20:00] VITALS: BP 140/65; PULSE 111; RESP 16; TEMP 36.3; O2SAT 98
[2025-01-20] MEDS: Nicotine 14 MG PATCH.TD24 TRANSDERMA (08:21)
[2025-01-20 09:16] VITALS: BP 127/60; PULSE 106; RESP 16; TEMP 35.9; O2SAT 98
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
[2025-01-20] MEDS: Milk of Magnesia 30 ML ORAL.SUSP PO (17:49)
--- NOTE | 2025-01-20 22:13 | PC.NURSE ---
depakote-only took 250 of 750 mg ordered depakote
[2025-01-20 22:18] VITALS: BP 129/61; PULSE 104; O2SAT 98
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
[2025-01-21] MEDS: Hydrocortisone 2.5 % Rectal Cr 30 GM TUBE 1 APPL PR (05:29)
[2025-01-21] MEDS: Nicotine 14 MG PATCH.TD24 TRANSDERMA (08:33)
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
[2025-01-21 14:51] VITALS: BP 133/89; PULSE 120; RESP 18; O2SAT 99
--- NOTE | 2025-01-21 18:03 | PC.NURSE ---
Dr. Franklin authorized late administration of Cogentin.
[2025-01-21 20:00] VITALS: RESP 18
[2025-01-21 20:53] VITALS: BP 142/86
[2025-01-22] VITALS (8 sets, daily range): BP systolic 120–139; BP diastolic 55–74; PULSE 96–115; RESP 16–18; TEMP 36.6–36.8; O2SAT 96
[2025-01-22] MEDS: LORazepam 2 MG/ML VIAL 1 MG IM (02:27)
--- NOTE | 2025-01-22 02:39 | HO.BHRESTREX ---
Behavioral Restraint Exam Behavioral Health Restraint Exam Type of Restraint: Physical Hold and Medication Reason for Restraint: Substantial Risk Medical Concerns for Restraint: No medical concerns, pt w/o acute inj / no noted resp/VS abnormalities Behavioral Assessment / Plan: No further behavioral concerns, continue current plan.
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
--- NOTE | 2025-01-22 09:18 | P.PNPSI_ITS ---
Subjective Subjective Date of Service: 01/22/25 Reason For Visit: Crisis Subjective Notes: Section 7 Interim History: Patients states that she is good. She is scared of [place] herpes after having sex. She refused to participate in an interview with this provider, and walked away stating i don't need a provider. She was observed by this provider, pacing the [place]. Medication Compliance: Intermittent Side effects from medications: No Review of Systems Acute medical concerns: No Mental Status Exam Mental Status Exam Narrative: Appearance: Casually dressed, adequate hygiene Behavior: Pacing the [place]. Eye contact is minimal, and there are no signs of psychomotor agitation or retardation Speech: decr amount, nml loudness. nml late Thought process: Disorganized Thought content: Bizarre Mood: Unknown Affect: Labile SI: Not expressed HI: Not expressed VH/AH: Not expressed Delusions: None Insight/judgment: Impaired insight and judgment Memory/cog: Alert, impaired secondary to psychiatric symptoms Diagnostics Vital Signs (24Hr): Vital Signs - 24 hr 01/21/25 14:51 01/21/25 20:00 01/21/25 20:53 Temperature Pulse Rate 120 H Respiratory Rate 18 18 Blood Pressure 133/89 142/86 H Pulse Oximetry 99 Oxygen Delivery Method 01/22/25 02:30 01/22/25 02:30 01/22/25 02:45 Temperature 98.3 F 98.3 F Pulse Rate 104 H 104 H Respiratory Rate 16 16 16 Blood Pressure 134/65 134/65 Pulse Oximetry 96 96 Oxygen Delivery Method Room Air Room Air 01/22/25 03:00 01/22/25 03:15 01/22/25 03:30 Temperature Pulse Rate Respiratory Rate 16 16 16 Blood Pressure Pulse Oximetry Oxygen Delivery Method 01/22/25 07:25 Temperature 97.8 F Pulse Rate 96 Respiratory Rate 16 Blood Pressure 120/55 L Pulse Oximetry 96 Oxygen Delivery Method Room Air BMI result Body Mass Index 20.0 Labs 01/09/25 16:36 01/09/25 16:36 Imaging Radiology Impressions: ITS Impressions Hand X-Ray 01/16/25 11:30 IMPRESSION: Unremarkable right hand Electronically signed by: Casa Rush MD 01/16/2025 11:46 AM EDT Medications Medications Current Medications Acetaminophen (Acetaminophen 325 Mg Tablet) 650 mg PO Q6H PRN PRN Reason: Headache/Pain, Scale 1-10 Last Admin: 01/21/25 20:53 Dose: 650 mg Al Hydroxide/Mg Hydroxide (Magnesium Hydrox/Alum Hydrox 30 Ml Oral.Susp) 30 ml PO Q6H PRN PRN Reason: Heartburn/Nausea Benztropine Mesylate (Benztropine Mesylate 0.5 Mg Tablet) 0.5 mg PO BID [facility] Last Admin: 01/22/25 08:37 Dose: 0.5 mg Clonidine HCl (Clonidine Hcl 0.2 Mg Tablet) 0.2 mg PO TID PRN; Protocol PRN Reason: Anxiety Last Admin: 01/21/25 20:53 Dose: 0.2 mg Divalproex Sodium (Divalproex Sodium 250 Mg Tablet.) 750 mg PO BEDTIME [facility] Last Admin: 01/21/25 23:05 Dose: Not Given Divalproex Sodium (Divalproex Sodium 500 Mg Tablet.) 500 mg PO DAILY [facility] Last Admin: 01/22/25 08:37 Dose: 500 mg Docusate Sodium (Docusate Sodium 100 Mg Capsule) 100 mg PO BID PRN PRN Reason: Constipation Fluphenazine HCl (Fluphenazine Hcl 5 Mg Tablet) 5 mg PO BID [facility] Last Admin: 01/22/25 08:37 Dose: 5 mg Fluphenazine HCl (Fluphenazine Hcl 5 Mg Tablet) 5 mg PO DAILY PRN PRN Reason: agitation Last Admin: 01/21/25 10:40 Dose: 5 mg Hydrocortisone (Hydrocortisone 2.5 % Rectal Cr 30 Gm Tube) [address] DAILY PRN PRN Reason: hemrroids Last Admin: 01/21/25 05:29 Dose: 1 appl Hydroxyzine HCl (Hydroxyzine Hcl 25 Mg Tablet) 25 mg PO Q6H PRN PRN Reason: mild anxiety Last Admin: 01/21/25 20:53 Dose: 25 mg Lorazepam (Lorazepam 1 Mg Tablet) 2 mg PO Q4H PRN PRN Reason: agitation Last Admin: 01/21/25 10:39 Dose: 2 mg Magnesium Hydroxide (Milk Of Magnesia 30 Ml Oral.Susp) 30 ml PO DAILY PRN PRN Reason: Constipation Last Admin: 01/20/25 17:49 Dose: 30 ml Multivitamins/Vitamin C (Multivitamin Tablet) 1 tab PO DAILY [facility] Last Admin: 01/21/25 08:36 Dose: 1 tab Nicotine (Nicotine 14 Mg Patch.Td24) 14 mg TRANSDERMA DAILY [facility] Last Admin: 01/21/25 08:33 Dose: 14 mg Nicotine Polacrilex (Nicotine Polacrilex 2 Mg Gum) 4 mg BUCCAL Q2H PRN PRN Reason: Nicotine Cravings Last Admin: 01/19/25 21:15 Dose: 4 mg Prazosin HCl (Prazosin Hcl 1 Mg Capsule) 1 mg PO BEDTIME [facility]; Protocol Last Admin: 01/21/25 23:06 Dose: Not Given Trazodone HCl (Trazodone Hcl 100 Mg Tablet) 100 mg PO BEDTIME MRX1 PRN PRN Reason: Insomnia Last Admin: 01/20/25 22:19 Dose: 100 mg Allergies Allergies Allergy/AdvReac Type Severity Reaction Status Date / Time olanzapine (From Zyprexa) AdvReac Rash Verified 12/31/24 18:41 Assessment & Plan Assessment & Plan (1) Psychosis: Status: Acute Code(s): F29 - Unspecified psychosis not due to a substance or known physiological condition Plan Ms. Sheridan is a 34 year-old woman who presents with s/s of psychosis, disorganized, some degree of paranoia. She had similar episode back in 2020. 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 I do suspect that there may be underlying psychiatric disorder that is triggered by amphetamine use but not necessarily caused by it. Further evaluation to clarify dx is needed. We discussed inpt level of care. We also discussed restarting risperidone 1mg po BID. low dose clonazepam. continue clonidine. 1. IPLOC 2. start risperidone 1mg po BID. Clonazepam 0.5mg po BID. 01/05: Continue current regimen and plans. 01/06: slept only 2 hours, disorganized, decompensated behaviors. unable to interact cogently. refusing risperidone, will offer seroquel instead. possible bipolar diathesis, T/C mood stabilizer. delirium also a possibility, as the mental status change since admission appears to be striking. 01/07: took seroquel 200 last night, slept 5.5 hours. more organized, linear, able to engage today. continue current mgmt. 01/08: refused seroquel last NOC, slept only 30 minutes. agitated, bizarre, disorganized today. commitment paperwork filed. 01/09: refused meds yesterday but got IMs due to behaviors (outbursts, touching peers, yelling, banging doors, pushed her sitter, climbing on tables and chairs. threatening to stab self with pens). more linear and engageable today, once again the day after having takenm medication. agrees to continue to take seroquel 200 mg QHS. 01/10: took seroquel last NOC and slept 4 hours overnight, but bizarre today. less agitation and intrusiveness than yesterday, but still bizarre and fairly intrusive. pt appears willing to take risperidone, will DC seroquel and return to dosing of risperidone 2 mg BID. took first dose this afternoon. court next monday. 01/11 very paranoid, fearful, taking medications 01/12 continue tx. 01/13: appears a bit more organized today than when not taking medications, although slow and processing poorly. declines to sign CV. commitment hearing tomorrow. 01/14: hearing continued until 01/24 for SINDY. add klonopin 0.5 BID ODT, change risperidone formulation to liquid (pt has been inducing vomiting repeatedly with toothbrush). hold toothbrush unless actively brushing teeth. continues interactive to some extent with MD today, but has been grabbing badges, touching others, and tried to vault into the nursing station in the past 24H. 01/15: IM medication after threatening to punch staff mine warfare officer with intrusive and aggressive behaviors toward peers. pt did not take klonopin as ordered yesterday. DC klonopin and start VPA 500 BID. per staff, running. tried to make herself vomit after taking PRN. labile. ate her feces in the shower and tried to feed it to her 1:1. crawling under tables. tried to jump into nurses station x2. took her shirt off and swinging it around. did not sleep at all. slept at 7:30am. 01/16: refusing VPA, taking risperidone. napped after IMs yesterday. has been bizarre and labile since. slept only 2 hours overnight. continue current mgmt. 01/17: agitated, bizarre, and aggressive behaviors yesterday (punching and kicking beard, stripping off in milieu, attempting to intimidate staff, grabbing stress balls out of staff's hands). did take VPA this morning on its being offered a second time. more calm today. taking risperidone. 01/18: intermittently refusing VPA, seems to be taking risperidone. asks MD if he is alive, then proposes elbow bump. accusing staff of stealing her things (phone), calling mother and bag patcher in the middle of the night. slept less than 4 hours. 01/19: more lucid today. concerned about risperidone weight gain. agrees to DC risperidone and try prolixin instead, starting at 2.5 BID. 01/20: very disorganized, bizarre, psychotic today. likely due to equivalent dosing of prolixin being given much lower than prior risperidone. as pt seems to be tolerating prolixin without issues, increase prolixin dosing from 2.5 BID to 5 BID. otherwise continue current mgmt. 01/21: less bizarre and disorganized, but still quite ill. variably compliant with medications. c/o leg pain, lowering self to floor; started cogentin 0.5 BID due to concern for dystonia. c/o nightmares, h/o prazosin with good effect. add prazosin 1 mg QHS as of tonight. 01/22: Patients states that she is good. She is scared of [place] herpes after having sex. She refused to participate in an interview with this provider, and walked away stating i don't need a provider. She was observed by this provider, pacing the [place]. Continue current treatment regimen. Patient educated on: therapeutic strategies Reason for continued inpatient stay Substantial Risk for: rapid decompensation Time Spent With Patient Time: Total time managing care of this patient today ____ minutes.
[2025-01-22 11:56] LABS: Glucose, Whole Blood 96 mg/dL (60-115)
--- NOTE | 2025-01-22 11:59 | PC.NURSE ---
This nurse was notified by the patients 1:1 that she was not feeling well and was requesting her nurse. Patient was sitting on the floor in front of the patient phone, physically shaking with her eyes closed. Stated I feel like I'm having a seizure, am I dying . Patient's vitals were obtained (154/82, HR 111, 96%, R18, POC 96). Provider Rocio Flowers was present during this time, aware of situation. Patient was assisted back to her room, bed was cleaned off and patient currently resting in her bed.
[2025-01-22] MEDS: Hydrocortisone 2.5 % Rectal Cr 30 GM TUBE 1 APPL PR (15:59)
[2025-01-22] MEDS: Milk of Magnesia 30 ML ORAL.SUSP PO (16:13)
--- NOTE | 2025-01-22 23:32 | PC.NURSE ---
[place] initally refused her complete HS dose of depatoke only accepting 250 mg and refused her Cogentin. she came back at 23:30 requesting her Cogentin and the remained the Depakote dose, however in the sep it appears that she had taken the full Depakote dose at 23:30 when she had in fact taken 250mg at 2100 and the remaining 500mg at 23:30
[2025-01-23 07:00] VITALS: BMI 20.5
[2025-01-23 07:46] VITALS: BP 114/68; PULSE 100; RESP 20; TEMP 36.2
[2025-01-23] MEDS: Nicotine 14 MG PATCH.TD24 TRANSDERMA (08:32)
[2025-01-23] MEDS: diazePAM 10 MG/2 ML CARTRIDGE IM (11:50)
--- NOTE | 2025-01-23 13:56 | PC.NURSE ---
Around 1125, [place] was running up and down the halls, being redirected multiple times. She ran into a staff member and fell to the floor. She reports pain to her R elbow, shoulder, L knee and back of head. No bruising or redness noted to R arm. Mild redness noted to L knee, no swelling. No bumps noted to back of head. Kb Franklin MD notified. Patient refused further evaluation. Patient refused vitals. Patient A&O x 4 post fall.
[2025-01-23 13:58] VITALS: RESP 18
--- NOTE | 2025-01-23 15:16 | P.PNPSI_ITS ---
Subjective Subjective Date of Service: 01/23/25 Reason For Visit: Crisis Interim History: wandering the [place], menacing others, disrobing. running and falling and c/o JUAREZ and arm pain after. ultimately posturing and threatening staff. took IMs voluntarily. per staff, targeting peers. PRN of prolixin/ativan yesterday. mostly taking meds the past 24H. intrusive, irritable. attempting to touch peers. slept 2.5 hours. restrained 2 nights ago for trying to punch staff. Mental Status Exam Mental Status Exam Narrative: Appearance: adequately dressed and groomed Behavior: pacing the [place] Speech: decr amount, nml loudness. nml latency. TP: disorganized TC: bizarre Mood: unknown Affect: labile AH/VH: none expressed Insight/judgment: impaired x 2. Memory/cog: alert, impaired secondary to psychiatric symptoms. Diagnostics Vital Signs (24Hr): Vital Signs - 24 hr 01/22/25 17:25 01/22/25 20:00 01/23/25 07:46 Temperature 98.1 F 97.1 F Pulse Rate 115 H 100 Respiratory Rate 18 20 Blood Pressure 135/63 139/74 114/68 Pulse Oximetry 96 Oxygen Delivery Method Room Air Room Air 01/23/25 13:58 Temperature Pulse Rate Respiratory Rate 18 Blood Pressure Pulse Oximetry Oxygen Delivery Method BMI result Body Mass Index 20.5 Labs 01/09/25 16:36 01/09/25 16:36 Labs: Laboratory Results - last 48 hr 01/22/25 11:52 POC Glucose 96 Imaging Radiology Impressions: ITS Impressions Hand X-Ray 01/16/25 11:30 IMPRESSION: Unremarkable right hand Electronically signed by: Casa Rush MD 01/16/2025 11:46 AM EDT Medications Medications Current Medications Acetaminophen (Acetaminophen 325 Mg Tablet) 650 mg PO Q6H PRN PRN Reason: Headache/Pain, Scale 1-10 Last Admin: 01/23/25 13:26 Dose: 650 mg Al Hydroxide/Mg Hydroxide (Magnesium Hydrox/Alum Hydrox 30 Ml Oral.Susp) 30 ml PO Q6H PRN PRN Reason: Heartburn/Nausea Benztropine Mesylate (Benztropine Mesylate 0.5 Mg Tablet) 0.5 mg PO BID [facility] Last Admin: 01/23/25 08:31 Dose: 0.5 mg Clonidine HCl (Clonidine Hcl 0.2 Mg Tablet) 0.2 mg PO TID PRN; Protocol PRN Reason: Anxiety Last Admin: 01/22/25 17:25 Dose: 0.2 mg Divalproex Sodium (Divalproex Sodium 250 Mg Tablet.) 750 mg PO BEDTIME [facility] Last Admin: 01/22/25 23:30 Dose: 750 mg Divalproex Sodium (Divalproex Sodium 500 Mg Tablet.) 500 mg PO DAILY [facility] Last Admin: 01/23/25 08:32 Dose: 500 mg Docusate Sodium (Docusate Sodium 100 Mg Capsule) 100 mg PO BID PRN PRN Reason: Constipation Fluphenazine HCl (Fluphenazine Hcl 5 Mg Tablet) 5 mg PO BID [facility] Last Admin: 01/23/25 08:31 Dose: 5 mg Fluphenazine HCl (Fluphenazine Hcl 5 Mg Tablet) 5 mg PO DAILY PRN PRN Reason: agitation Last Admin: 01/22/25 11:28 Dose: 5 mg Hydrocortisone (Hydrocortisone 2.5 % Rectal Cr 30 Gm Tube) 1 appl MT DAILY PRN PRN Reason: hemrroids Last Admin: 01/22/25 15:59 Dose: 1 appl Hydroxyzine HCl (Hydroxyzine Hcl 25 Mg Tablet) 25 mg PO Q6H PRN PRN Reason: mild anxiety Last Admin: 01/23/25 00:37 Dose: 25 mg Lorazepam (Lorazepam 1 Mg Tablet) 2 mg PO Q4H PRN PRN Reason: agitation Last Admin: 01/22/25 11:27 Dose: 2 mg Magnesium Hydroxide (Milk Of Magnesia 30 Ml Oral.Susp) 30 ml PO DAILY PRN PRN Reason: Constipation Last Admin: 01/22/25 16:13 Dose: 30 ml Multivitamins/Vitamin C (Multivitamin Tablet) 1 tab PO DAILY [facility] Last Admin: 01/23/25 08:32 Dose: 1 tab Nicotine (Nicotine 14 Mg Patch.Td24) 14 mg TRANSDERMA DAILY [facility] Last Admin: 01/23/25 08:32 Dose: 14 mg Nicotine Polacrilex (Nicotine Polacrilex 2 Mg Gum) 4 mg BUCCAL Q2H PRN PRN Reason: Nicotine Cravings Last Admin: 01/23/25 08:34 Dose: 4 mg Prazosin HCl (Prazosin Hcl 1 Mg Capsule) 1 mg PO BEDTIME [facility]; Protocol Last Admin: 01/22/25 20:35 Dose: 1 mg Trazodone HCl (Trazodone Hcl 100 Mg Tablet) 100 mg PO BEDTIME MRX1 PRN PRN Reason: Insomnia Last Admin: 01/23/25 00:37 Dose: 100 mg Allergies Allergies Allergy/AdvReac Type Severity Reaction Status Date / Time olanzapine (From Zyprexa) AdvReac Rash Verified 12/31/24 18:41 Assessment & Plan Assessment & Plan (1) Psychosis: Status: Acute Code(s): F29 - Unspecified psychosis not due to a substance or known physiological condition Plan Ms. Sheridan is a 34 year-old woman who presents with s/s of psychosis, disorganized, some degree of paranoia. She had similar episode back in 2020. 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 I do suspect that there may be underlying psychiatric disorder that is triggered by amphetamine use but not necessarily caused by it. Further evaluation to clarify dx is needed. We discussed inpt level of care. We also discussed restarting risperidone 1mg po BID. low dose clonazepam. continue clonidine. 1. IPLOC 2. start risperidone 1mg po BID. Clonazepam 0.5mg po BID. 01/05: Continue current regimen and plans. 01/06: slept only 2 hours, disorganized, decompensated behaviors. unable to interact cogently. refusing risperidone, will offer seroquel instead. possible bipolar diathesis, T/C mood stabilizer. delirium also a possibility, as the mental status change since admission appears to be striking. 01/07: took seroquel 200 last night, slept 5.5 hours. more organized, linear, able to engage today. continue current mgmt. 01/08: refused seroquel last NOC, slept only 30 minutes. agitated, bizarre, disorganized today. commitment paperwork filed. 01/09: refused meds yesterday but got IMs due to behaviors (outbursts, touching peers, yelling, banging doors, pushed her sitter, climbing on tables and chairs. threatening to stab self with pens). more linear and engageable today, once again the day after having takenm medication. agrees to continue to take seroquel 200 mg QHS. 01/10: took seroquel last NOC and slept 4 hours overnight, but bizarre today. less agitation and intrusiveness than yesterday, but still bizarre and fairly intrusive. pt appears willing to take risperidone, will DC seroquel and return to dosing of risperidone 2 mg BID. took first dose this afternoon. court next monday. 01/11 very paranoid, fearful, taking medications 01/12 continue tx. 01/13: appears a bit more organized today than when not taking medications, although slow and processing poorly. declines to sign CV. commitment hearing tomorrow. 01/14: hearing continued until 01/24 for SINDY. add klonopin 0.5 BID ODT, change risperidone formulation to liquid (pt has been inducing vomiting repeatedly with toothbrush). hold toothbrush unless actively brushing teeth. continues interactive to some extent with MD today, but has been grabbing badges, touching others, and tried to vault into the nursing station in the past 24H. 01/15: IM medication after threatening to punch set staff fitter with intrusive and aggressive behaviors toward peers. pt did not take klonopin as ordered yesterday. DC klonopin and start VPA 500 BID. per staff, running. tried to make herself vomit after taking PRN. labile. ate her feces in the shower and tried to feed it to her 1:1. crawling under tables. tried to jump into nurses station x2. took her shirt off and swinging it around. did not sleep at all. slept at 7:30am. 01/16: refusing VPA, taking risperidone. napped after IMs yesterday. has been bizarre and labile since. slept only 2 hours overnight. continue current mgmt. 01/17: agitated, bizarre, and aggressive behaviors yesterday (punching and kicking beard, stripping off in milieu, attempting to intimidate staff, grabbing stress balls out of staff's hands). did take VPA this morning on its being offered a second time. more calm today. taking risperidone. 01/18: intermittently refusing VPA, seems to be taking risperidone. asks MD if he is alive, then proposes elbow bump. accusing staff of stealing her things (phone), calling mother and typo machine operator in the middle of the night. slept less than 4 hours. 01/19: more lucid today. concerned about risperidone weight gain. agrees to DC risperidone and try prolixin instead, starting at 2.5 BID. 01/20: very disorganized, bizarre, psychotic today. likely due to equivalent dosing of prolixin being given much lower than prior risperidone. as pt seems to be tolerating prolixin without issues, increase prolixin dosing from 2.5 BID to 5 BID. otherwise continue current mgmt. 01/21: less bizarre and disorganized, but still quite ill. variably compliant with medications. c/o leg pain, lowering self to floor; started cogentin 0.5 BID due to concern for dystonia. c/o nightmares, h/o prazosin with good effect. add prazosin 1 mg QHS as of tonight. 01/22: Patients states that she is good. She is scared of [place] herpes after having sex. She refused to participate in an interview with this provider, and walked away stating i don't need a provider. She was observed by this provider, pacing the [place]. Continue current treatment regimen. 01/23: disorganized and dangerous behaviors. voluntarily took IMs. court tomorrow. Reason for continued inpatient stay Substantial Risk for: harm to self, harm to others and inability to function Time Spent With Patient Time: Total time managing care of this patient today __25__ minutes.
[2025-01-23] MEDS: Hydrocortisone 2.5 % Rectal Cr 30 GM TUBE 1 APPL PR (16:18)
[2025-01-23 20:00] VITALS: BP 160/83; PULSE 116; RESP 18; TEMP 36.9; O2SAT 96
[2025-01-23 21:00] VITALS: PULSE 108; RESP 16
--- NOTE | 2025-01-23 21:10 | PC.NURSE ---
HS depakote-only took 250 mg of prescribed 750 mg of depakote
[2025-01-24] MEDS: Nicotine 14 MG PATCH.TD24 TRANSDERMA (06:18)
[2025-01-24 06:22] VITALS: BP 118/75; PULSE 116
[2025-01-24] MEDS: Milk of Magnesia 30 ML ORAL.SUSP PO (06:23)
[2025-01-24] MEDS: Hydrocortisone 2.5 % Rectal Cr 30 GM TUBE 1 APPL PR (06:25)
[2025-01-24 07:20] VITALS: BP 118/59; PULSE 114; RESP 18; TEMP 36.6; O2SAT 95
[2025-01-24 07:25] LABS: Ammonia 30 umol/L (13-55)
[2025-01-24 07:56] LABS: Alanine Aminotransferase 35 U/L (0-31); Albumin Level 3.9 g/dL (3.5-5.0); Alkaline Phosphatase 59 U/L (39-117); Aspartate Amino Transferase 48 U/L (5-31); Total Protein 6.3 g/dL (6.5-8.0)
--- NOTE | 2025-01-24 11:41 | P.PNPSI_ITS ---
Subjective Subjective Date of Service: 01/24/25 Reason For Visit: Crisis Interim History: agitated, unable to tolerate interaction, paces away from MD almost immediately after start of engagement. per staff, labile. took some meds last night. ran into staff yesterday, then posturing and threatening to staff, slept about 6.5 hours overnight. Mental Status Exam Mental Status Exam Narrative: Appearance: adequately dressed and groomed Behavior: pacing the [place] Speech: decr amount, nml loudness. nml latency. TP: disorganized TC: bizarre Mood: unknown Affect: labile AH/VH: none expressed Insight/judgment: impaired x 2. Memory/cog: alert, impaired secondary to psychiatric symptoms. Diagnostics Vital Signs (24Hr): Vital Signs - 24 hr 01/23/25 13:58 01/23/25 20:00 01/23/25 21:00 Temperature 98.5 F Pulse Rate 116 H 108 H Respiratory Rate 18 18 16 Blood Pressure 160/83 H Pulse Oximetry 96 Oxygen Delivery Method Room Air 01/24/25 06:22 01/24/25 07:20 Temperature 97.9 F Pulse Rate 116 H 114 H Respiratory Rate 18 Blood Pressure 118/75 118/59 L Pulse Oximetry 95 Oxygen Delivery Method Room Air BMI result Body Mass Index 20.5 Labs 01/09/25 16:36 01/09/25 16:36 Labs: Laboratory Results - last 48 hr 01/22/25 01/24/25 11:52 07:10 POC Glucose 96 Total Bilirubin 0.2 Direct Bilirubin < 0.2 AST 48 H ALT 35 H Alkaline Phosphatase 59 Ammonia 30 Total Protein 6.3 L Albumin 3.9 Valproic Acid 52.1 Imaging Radiology Impressions: ITS Impressions Hand X-Ray 01/16/25 11:30 IMPRESSION: Unremarkable right hand Electronically signed by: Casa Rush MD 01/16/2025 11:46 AM EDT RP Medications Medications Current Medications Acetaminophen (Acetaminophen 325 Mg Tablet) 650 mg PO Q6H PRN PRN Reason: Headache/Pain, Scale 1-10 Last Admin: 01/23/25 13:26 Dose: 650 mg Al Hydroxide/Mg Hydroxide (Magnesium Hydrox/Alum Hydrox 30 Ml Oral.Susp) 30 ml PO Q6H PRN PRN Reason: Heartburn/Nausea Benztropine Mesylate (Benztropine Mesylate 0.5 Mg Tablet) 0.5 mg PO BID [facility] Last Admin: 01/24/25 06:23 Dose: 0.5 mg Clonidine HCl (Clonidine Hcl 0.2 Mg Tablet) 0.2 mg PO TID PRN; Protocol PRN Reason: Anxiety Last Admin: 01/24/25 06:23 Dose: 0.2 mg Divalproex Sodium (Divalproex Sodium 250 Mg Tablet.) 750 mg PO BEDTIME [facility] Last Admin: 01/23/25 21:07 Dose: 250 mg Divalproex Sodium (Divalproex Sodium 500 Mg Tablet.) 500 mg PO DAILY [facility] Last Admin: 01/24/25 06:18 Dose: 500 mg Docusate Sodium (Docusate Sodium 100 Mg Capsule) 100 mg PO BID PRN PRN Reason: Constipation Fluphenazine HCl (Fluphenazine Hcl 5 Mg Tablet) 5 mg PO BID [facility] Last Admin: 01/24/25 06:18 Dose: 5 mg Fluphenazine HCl (Fluphenazine Hcl 5 Mg Tablet) 5 mg PO DAILY PRN PRN Reason: agitation Last Admin: 01/22/25 11:28 Dose: 5 mg Hydrocortisone (Hydrocortisone 2.5 % Rectal Cr 30 Gm Tube) 1 appl [place] DAILY PRN PRN Reason: hemrroids Last Admin: 01/24/25 06:25 Dose: 1 appl Hydroxyzine HCl (Hydroxyzine Hcl 25 Mg Tablet) 25 mg PO Q6H PRN PRN Reason: mild anxiety Last Admin: 01/23/25 17:19 Dose: 25 mg Lorazepam (Lorazepam 1 Mg Tablet) 2 mg PO Q4H PRN PRN Reason: agitation Last Admin: 01/22/25 11:27 Dose: 2 mg Magnesium Hydroxide (Milk Of Magnesia 30 Ml Oral.Susp) 30 ml PO DAILY PRN PRN Reason: Constipation Last Admin: 01/24/25 06:23 Dose: 30 ml Multivitamins/Vitamin C (Multivitamin Tablet) 1 tab PO DAILY [facility] Last Admin: 01/24/25 08:36 Dose: Not Given Nicotine (Nicotine 14 Mg Patch.Td24) 14 mg TRANSDERMA DAILY [facility] Last Admin: 01/24/25 06:18 Dose: 14 mg Nicotine Polacrilex (Nicotine Polacrilex 2 Mg Gum) 4 mg BUCCAL Q2H PRN PRN Reason: Nicotine Cravings Last Admin: 01/23/25 08:34 Dose: 4 mg Prazosin HCl (Prazosin Hcl 1 Mg Capsule) 1 mg PO BEDTIME [facility]; Protocol Last Admin: 01/23/25 21:08 Dose: 1 mg Trazodone HCl (Trazodone Hcl 100 Mg Tablet) 100 mg PO BEDTIME MRX1 PRN PRN Reason: Insomnia Last Admin: 01/23/25 21:08 Dose: 100 mg Allergies Allergies Allergy/AdvReac Type Severity Reaction Status Date / Time olanzapine (From Zyprexa) AdvReac Rash Verified 12/31/24 18:41 Assessment & Plan Assessment & Plan (1) Psychosis: Status: Acute Code(s): F29 - Unspecified psychosis not due to a substance or known physiological condition Plan Ms. Sheridan is a 34 year-old woman who presents with s/s of psychosis, disorganized, some degree of paranoia. She had similar episode back in 2020. 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 I do suspect that there may be underlying psychiatric disorder that is triggered by amphetamine use but not necessarily caused by it. Further evaluation to clarify dx is needed. We discussed inpt level of care. We also discussed restarting risperidone 1mg po BID. low dose clonazepam. continue clonidine. 1. IPLOC 2. start risperidone 1mg po BID. Clonazepam 0.5mg po BID. 01/05: Continue current regimen and plans. 01/06: slept only 2 hours, disorganized, decompensated behaviors. unable to interact cogently. refusing risperidone, will offer seroquel instead. possible bipolar diathesis, T/C mood stabilizer. delirium also a possibility, as the mental status change since admission appears to be striking. 01/07: took seroquel 200 last night, slept 5.5 hours. more organized, linear, able to engage today. continue current mgmt. 01/08: refused seroquel last NOC, slept only 30 minutes. agitated, bizarre, disorganized today. commitment paperwork filed. 01/09: refused meds yesterday but got IMs due to behaviors (outbursts, touching peers, yelling, banging doors, pushed her sitter, climbing on tables and chairs. threatening to stab self with pens). more linear and engageable today, once again the day after having takenm medication. agrees to continue to take seroquel 200 mg QHS. 01/10: took seroquel last NOC and slept 4 hours overnight, but bizarre today. less agitation and intrusiveness than yesterday, but still bizarre and fairly intrusive. pt appears willing to take risperidone, will DC seroquel and return to dosing of risperidone 2 mg BID. took first dose this afternoon. court next monday. 01/11 very paranoid, fearful, taking medications 01/12 continue tx. 01/13: appears a bit more organized today than when not taking medications, although slow and processing poorly. declines to sign CV. commitment hearing tomorrow. 01/14: hearing continued until 01/24 for SINDY. add klonopin 0.5 BID ODT, change risperidone formulation to liquid (pt has been inducing vomiting repeatedly with toothbrush). hold toothbrush unless actively brushing teeth. continues interactive to some extent with MD today, but has been grabbing badges, touching others, and tried to vault into the nursing station in the past 24H. 01/15: IM medication after threatening to punch staff pharmacist hospital with intrusive and aggressive behaviors toward peers. pt did not take klonopin as ordered yesterday. DC klonopin and start VPA 500 BID. per staff, running. tried to make herself vomit after taking PRN. labile. ate her feces in the shower and tried to feed it to her 1:1. crawling under tables. tried to jump into nurses station x2. took her shirt off and swinging it around. did not sleep at all. slept at 7:30am. 01/16: refusing VPA, taking risperidone. napped after IMs yesterday. has been bizarre and labile since. slept only 2 hours overnight. continue current mgmt. 01/17: agitated, bizarre, and aggressive behaviors yesterday (punching and kicking beard, stripping off in milieu, attempting to intimidate staff, grabbing stress balls out of staff's hands). did take VPA this morning on its being offered a second time. more calm today. taking risperidone. 01/18: intermittently refusing VPA, seems to be taking risperidone. asks MD if he is alive, then proposes elbow bump. accusing staff of stealing her things (phone), calling mother and skiing instructor in the middle of the night. slept less than 4 hours. 01/19: more lucid today. concerned about risperidone weight gain. agrees to DC risperidone and try prolixin instead, starting at 2.5 BID. 01/20: very disorganized, bizarre, psychotic today. likely due to equivalent dosing of prolixin being given much lower than prior risperidone. as pt seems to be tolerating prolixin without issues, increase prolixin dosing from 2.5 BID to 5 BID. otherwise continue current mgmt. 01/21: less bizarre and disorganized, but still quite ill. variably compliant with medications. c/o leg pain, lowering self to floor; started cogentin 0.5 BID due to concern for dystonia. c/o nightmares, h/o prazosin with good effect. add prazosin 1 mg QHS as of tonight. 01/22: Patients states that she is good. She is scared of [place] herpes after having sex. She refused to participate in an interview with this provider, and walked away stating i don't need a provider. She was observed by this provider, pacing the [place]. Continue current treatment regimen. 01/23: disorganized and dangerous behaviors. voluntarily took IMs. court tomorrow. 01/24: remains disorganized. ran into staff member yesterday, postured and threatened other staff afterward. slept about 6.[address] afternoon. Reason for continued inpatient stay Substantial Risk for: harm to self, harm to others and inability to function Time Spent With Patient Time: Total time managing care of this patient today __35__ minutes.
[2025-01-24 20:00] VITALS: BP 126/62; PULSE 105; RESP 15; TEMP 36.4; O2SAT 100
[2025-01-24 20:55] VITALS: BP 126/62
[2025-01-24 23:30] VITALS: BP 122/62
--- NOTE | 2025-01-25 06:34 | PM.EVENT ---
Event Note Date of Service: 01/25/25 Event Note: As per the nurse, patient had a witnessed fall while trying to put on her pants. Patient did hit her head. Will order CT head. Did not lose consciousness prior to the fall. Time Spent With Patient Time: Total time managing care of this patient today ____ minutes.
--- NOTE | 2025-01-25 06:59 | PC.ADMIT ---
Around 0630, pt woke and while getting out of bed to change her pants,
--- NOTE | 2025-01-25 07:02 | PC.NURSE ---
Around 0628, pt stood up to change her pants after getting out of bed this morning. While attempting to change her pants, she reports losing balance and falling, hitting the back of her head on the wall. Pt assessed. No injuries observed. Reports some pain with hitting her head. No other physical complaints reported/observed. VSS. Pt Dr. Muñoz notified and ordered CT scan, results pending. Nursing plant maintenance supervisor Baylee Renteria notified. Fall witnessed by Laci MOORE
[2025-01-25 07:10] VITALS: BP 119/56; PULSE 96; RESP 18; TEMP 36.4
[2025-01-25 07:12] VITALS: BP 119/56; PULSE 96; RESP 18; TEMP 36.4; O2SAT 98
[2025-01-25] MEDS: Nicotine 14 MG PATCH.TD24 TRANSDERMA (08:39)
[2025-01-25] MEDS: Hydrocortisone 2.5 % Rectal Cr 30 GM TUBE 1 APPL PR (13:51)
[2025-01-25 21:00] VITALS: BP 110/60; PULSE 96; RESP 16; TEMP 36.4; O2SAT 98
--- NOTE | 2025-01-25 21:09 | PC.NURSE ---
VARGHESE de la cruz. only took 1 tablet this evening, 250 mg
--- NOTE | 2025-01-25 22:05 | HO.PSYCHPN ---
Subjective Subjective Date of Service: 01/25/25 Reason For Visit: Crisis Subjective Notes: Section 8 Healthcare Proxy: No Guardianship: No Medical Problems Affecting Mental Status: No Interim History: Medical record and nursing notes reviewed; case discussed during rounds with team/nursing staff, and met with patient for supportive therapy/psychoeducation, as well as medication management. Per chart review, patient have interrupted sleep over on overnight 5-6 hours, but she has been sleeping in the morning. Patient had a for early on the overnight shift. CT scan was negative as she was witness fell hit her head to the wall when she tried to put her pants on. Reports mood is confused and bored . Denies other safety concern. Wanted to focused on eating lunch. She is appeared to be not happy with food tray. Denies voices or other safety concerns. She took all her medication yesterday in the evening with a lot of encouragement at different times. However refused vitamin in the morning. Medication Compliance: Yes (Except vitamins in the morning) Side effects from medications: No Attending Groups: No Review of Systems Acute medical concerns: No She fell this morning hit her head to the wall while trying to put her pants on witnessed. Seen by hospitalist. CT scan was negative Medical Review of Systems: unchanged Review of Systems Review of Systems Yes all other systems are reviewed and are negative and Unobtainable due to mental status (sylwia) Mental Status Exam Mental Status Exam Narrative: Appearance: adequately dressed and groomed Behavior: pacing the [place] with less intense Speech: decr amount, nml latency. TP: disorganized, TC: bizarre Mood: Confused and bored Affect: labile with some improvement AH/VH: none expressed Insight/judgment: impaired x 2. Memory/cog: alert, impaired secondary to psychiatric symptoms. Diagnostics Vital Signs (24Hr): Vital Signs - 24 hr 01/24/25 23:30 01/25/25 07:10 01/25/25 07:12 Temperature 97.5 F 97.5 F Pulse Rate 96 96 Respiratory Rate 18 18 Blood Pressure 122/62 119/56 L 119/56 L Pulse Oximetry 98 Oxygen Delivery Method Room Air 01/25/25 21:00 Temperature 97.6 F Pulse Rate 96 Respiratory Rate 16 Blood Pressure 110/60 Pulse Oximetry 98 Oxygen Delivery Method Room Air BMI result Body Mass Index 20.5 Labs 01/09/25 16:36 01/09/25 16:36 Labs: Laboratory Results - last 48 hr 01/24/25 07:10 Total Bilirubin 0.2 Direct Bilirubin < 0.2 AST 48 H ALT 35 H Alkaline Phosphatase 59 Ammonia 30 Total Protein 6.3 L Albumin 3.9 Valproic Acid 52.1 Imaging Radiology Impressions: ITS Impressions Hand X-Ray 01/16/25 11:30 IMPRESSION: Unremarkable right hand Electronically signed by: Casa Rush MD 01/16/2025 11:46 AM EDT RP Medications Medications Current Medications Acetaminophen (Acetaminophen 325 Mg Tablet) 650 mg PO Q6H PRN PRN Reason: Headache/Pain, Scale 1-10 Last Admin: 01/25/25 08:44 Dose: 650 mg Al Hydroxide/Mg Hydroxide (Magnesium Hydrox/Alum Hydrox 30 Ml Oral.Susp) 30 ml PO Q6H PRN PRN Reason: Heartburn/Nausea Benztropine Mesylate (Benztropine Mesylate 0.5 Mg Tablet) 0.5 mg PO BID [facility] Last Admin: 01/25/25 21:08 Dose: 0.5 mg Clonidine HCl (Clonidine Hcl 0.2 Mg Tablet) 0.2 mg PO TID PRN; Protocol PRN Reason: Anxiety Last Admin: 01/25/25 21:07 Dose: 0.2 mg Divalproex Sodium (Divalproex Sodium 250 Mg Tablet.Dr) 750 mg PO BEDTIME [facility] Last Admin: 01/25/25 21:09 Dose: 250 mg Divalproex Sodium (Divalproex Sodium 500 Mg Tablet.) 500 mg PO DAILY [facility] Last Admin: 01/25/25 08:46 Dose: 500 mg Docusate Sodium (Docusate Sodium 100 Mg Capsule) 100 mg PO BID PRN PRN Reason: Constipation Fluphenazine HCl (Fluphenazine Hcl 5 Mg Tablet) 5 mg PO BID [facility] Last Admin: 01/25/25 21:06 Dose: 5 mg Fluphenazine HCl (Fluphenazine Hcl 5 Mg Tablet) 5 mg PO DAILY PRN PRN Reason: agitation Last Admin: 01/25/25 04:00 Dose: 5 mg Hydrocortisone (Hydrocortisone 2.5 % Rectal Cr 30 Gm Tube) 1 appl NH DAILY PRN PRN Reason: hemrroids Last Admin: 01/25/25 13:51 Dose: 1 appl Hydroxyzine HCl (Hydroxyzine Hcl 25 Mg Tablet) 25 mg PO Q6H PRN PRN Reason: mild anxiety Last Admin: 01/25/25 08:45 Dose: 25 mg Lorazepam (Lorazepam 1 Mg Tablet) 2 mg PO Q4H PRN PRN Reason: agitation Last Admin: 01/25/25 21:04 Dose: 2 mg Magnesium Hydroxide (Milk Of Magnesia 30 Ml Oral.Susp) 30 ml PO DAILY PRN PRN Reason: Constipation Last Admin: 01/24/25 06:23 Dose: 30 ml Multivitamins/Vitamin C (Multivitamin Tablet) 1 tab PO DAILY [facility] Last Admin: 01/25/25 08:45 Dose: 1 tab Nicotine (Nicotine 14 Mg Patch.Td24) 14 mg TRANSDERMA DAILY [facility] Last Admin: 01/25/25 08:39 Dose: 14 mg Nicotine Polacrilex (Nicotine Polacrilex 2 Mg Gum) 4 mg BUCCAL Q2H PRN PRN Reason: Nicotine Cravings Last Admin: 01/25/25 04:00 Dose: 4 mg Prazosin HCl (Prazosin Hcl 1 Mg Capsule) 1 mg PO BEDTIME [facility]; Protocol Last Admin: 01/25/25 21:07 Dose: 1 mg Trazodone HCl (Trazodone Hcl 100 Mg Tablet) 100 mg PO BEDTIME MRX1 PRN PRN Reason: Insomnia Last Admin: 01/25/25 21:07 Dose: 100 mg Allergies Allergies Allergy/AdvReac Type Severity Reaction Status Date / Time olanzapine (From Zyprexa) AdvReac Rash Verified 12/31/24 18:41 Assessment & Plan Assessment & Plan (1) Psychosis: Status: Acute Code(s): F29 - Unspecified psychosis not due to a substance or known physiological condition Plan Ms. Sheridan is a 34 year-old woman who presents with s/s of psychosis, disorganized, some degree of paranoia. She had similar episode back in 2020. 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 I do suspect that there may be underlying psychiatric disorder that is triggered by amphetamine use but not necessarily caused by it. Further evaluation to clarify dx is needed. We discussed inpt level of care. We also discussed restarting risperidone 1mg po BID. low dose clonazepam. continue clonidine. 1. IPLOC 2. start risperidone 1mg po BID. Clonazepam 0.5mg po BID. 01/05: Continue current regimen and plans. 01/06: slept only 2 hours, disorganized, decompensated behaviors. unable to interact cogently. refusing risperidone, will offer seroquel instead. possible bipolar diathesis, T/C mood stabilizer. delirium also a possibility, as the mental status change since admission appears to be striking. 01/07: took seroquel 200 last night, slept 5.5 hours. more organized, linear, able to engage today. continue current mgmt. 01/08: refused seroquel last NOC, slept only 30 minutes. agitated, bizarre, disorganized today. commitment paperwork filed. 01/09: refused meds yesterday but got IMs due to behaviors (outbursts, touching peers, yelling, banging doors, pushed her sitter, climbing on tables and chairs. threatening to stab self with pens). more linear and engageable today, once again the day after having takenm medication. agrees to continue to take seroquel 200 mg QHS. 01/10: took seroquel last NOC and slept 4 hours overnight, but bizarre today. less agitation and intrusiveness than yesterday, but still bizarre and fairly intrusive. pt appears willing to take risperidone, will DC seroquel and return to dosing of risperidone 2 mg BID. took first dose this afternoon. court next monday. 01/11 very paranoid, fearful, taking medications 01/12 continue tx. 01/13: appears a bit more organized today than when not taking medications, although slow and processing poorly. declines to sign CV. commitment hearing tomorrow. 01/14: hearing continued until 01/24 for SINDY. add klonopin 0.5 BID ODT, change risperidone formulation to liquid (pt has been inducing vomiting repeatedly with toothbrush). hold toothbrush unless actively brushing teeth. continues interactive to some extent with MD today, but has been grabbing badges, touching others, and tried to vault into the nursing station in the past 24H. 01/15: IM medication after threatening to punch research staff member with intrusive and aggressive behaviors toward peers. pt did not take klonopin as ordered yesterday. DC klonopin and start VPA 500 BID. per staff, running. tried to make herself vomit after taking PRN. labile. ate her feces in the shower and tried to feed it to her 1:1. crawling under tables. tried to jump into nurses station x2. took her shirt off and swinging it around. did not sleep at all. slept at 7:30am. 01/16: refusing VPA, taking risperidone. napped after IMs yesterday. has been bizarre and labile since. slept only 2 hours overnight. continue current mgmt. 01/17: agitated, bizarre, and aggressive behaviors yesterday (punching and kicking beard, stripping off in milieu, attempting to intimidate staff, grabbing stress balls out of staff's hands). did take VPA this morning on its being offered a second time. more calm today. taking risperidone. 01/18: intermittently refusing VPA, seems to be taking risperidone. asks MD if he is alive, then proposes elbow bump. accusing staff of stealing her things (phone), calling mother and staff nuclear weapons officer in the middle of the night. slept less than 4 hours. 01/19: more lucid today. concerned about risperidone weight gain. agrees to DC risperidone and try prolixin instead, starting at 2.5 BID. 01/20: very disorganized, bizarre, psychotic today. likely due to equivalent dosing of prolixin being given much lower than prior risperidone. as pt seems to be tolerating prolixin without issues, increase prolixin dosing from 2.5 BID to 5 BID. otherwise continue current mgmt. 01/21: less bizarre and disorganized, but still quite ill. variably compliant with medications. c/o leg pain, lowering self to floor; started cogentin 0.5 BID due to concern for dystonia. c/o nightmares, h/o prazosin with good effect. add prazosin 1 mg QHS as of tonight. 01/22: Patients states that she is good. She is scared of [place] herpes after having sex. She refused to participate in an interview with this provider, and walked away stating i don't need a provider. She was observed by this provider, pacing the [place]. Continue current treatment regimen. 01/23: disorganized and dangerous behaviors. voluntarily took IMs. court tomorrow. 01/24: remains disorganized. ran into staff member yesterday, postured and threatened other staff afterward. slept about 6.[address] afternoon. 01/25/25: Staff 5 6 hours with broken sleep. Compliant with medication with lots of encouragement from yesterday, refused her vitamins in the morning. CT scan was negative, she fell early in the morning, witness her head hit the wall the trying to put her pants on. Slightly improved in mood with medication compliant. VPA level is 52,1 low side. However patient not consistently take it every day. We will recheck. He is on section 8. Pending Wei's order. Less irritable, less racing. Patient educated on: medication risk/benefits Informed Consent: further education needed Reason for continued inpatient stay Substantial Risk for: med/psych decompensation Time Spent With Patient Time: Total time managing care of this patient today ____ minutes.
[2025-01-26] MEDS: Nicotine 14 MG PATCH.TD24 TRANSDERMA (06:12)
--- NOTE | 2025-01-26 06:18 | PC.NURSE ---
AM medications given at this time per pt request and per special instructions by psychiatrist
[2025-01-26 08:00] VITALS: BP 112/54; PULSE 86; RESP 20; TEMP 36.3; O2SAT 99
[2025-01-26 11:05] VITALS: BP 133/67
--- NOTE | 2025-01-26 12:27 | HO.PSYCHPN ---
Subjective Subjective Date of Service: 01/26/25 Reason For Visit: Crisis Subjective Notes: Section 8 Healthcare Proxy: No Guardianship: No Medical Problems Affecting Mental Status: No Interim History: Medical record and nursing notes reviewed; case discussed during rounds with team/nursing staff, and met with patient for supportive therapy/psychoeducation, as well as medication management. Patient slept for 7-1/2 hours last night with broken sleep, was medication compliant, except for Depakote but she only take 250/750 at bedtime. She has a lot of question regarding medications, but hyper focused on any medications make her addicted. Reports I will not take any benzos . Reports feeling aggravated due to not knowing when she is leaving. Was in and out of her room, observed standing sometimes, labile, restless, racing thoughts, disorganized. Sexually inappropriate behavior and poor boundaries. Appear to be perseverative on her bowel movement. Medication Compliance: Yes (only took 250mg out of 750mg Depakote at HS. ) Side effects from medications: No Attending Groups: No Review of Systems Acute medical concerns: No Medical Review of Systems: unchanged Review of Systems Review of Systems Yes all other systems are reviewed and are negative and Unobtainable due to mental status (sylwia) Mental Status Exam Mental Status Exam Narrative: Appearance: adequately dressed and groomed Behavior: pacing the [place] with less intense Speech: decr amount, nml latency. TP: disorganized, TC: bizarre Mood: aggravated Affect: labile AH/VH: none expressed Insight/judgment: impaired x 2. Memory/cog: alert, impaired secondary to psychiatric symptoms. Diagnostics Vital Signs (24Hr): Vital Signs - 24 hr 01/25/25 21:00 01/26/25 08:00 01/26/25 11:05 Temperature 97.6 F 97.3 F Pulse Rate 96 86 Respiratory Rate 16 20 Blood Pressure 110/60 112/54 L 133/67 Pulse Oximetry 98 99 Oxygen Delivery Method Room Air Room Air BMI result Body Mass Index 20.5 Labs 01/09/25 16:36 01/09/25 16:36 Imaging Radiology Impressions: ITS Impressions Hand X-Ray 01/16/25 11:30 IMPRESSION: Unremarkable right hand Electronically signed by: Casa Rush MD 01/16/2025 11:46 AM EDT Medications Medications Current Medications Acetaminophen (Acetaminophen 325 Mg Tablet) 650 mg PO Q6H PRN PRN Reason: Headache/Pain, Scale 1-10 Last Admin: 01/25/25 08:44 Dose: 650 mg Al Hydroxide/Mg Hydroxide (Magnesium Hydrox/Alum Hydrox 30 Ml Oral.Susp) 30 ml PO Q6H PRN PRN Reason: Heartburn/Nausea Benztropine Mesylate (Benztropine Mesylate 0.5 Mg Tablet) 0.5 mg PO BID [facility] Last Admin: 01/26/25 06:13 Dose: 0.5 mg Clonidine HCl (Clonidine Hcl 0.2 Mg Tablet) 0.2 mg PO TID PRN; Protocol PRN Reason: Anxiety Last Admin: 01/26/25 11:05 Dose: 0.2 mg Divalproex Sodium (Divalproex Sodium 250 Mg Tablet.) 750 mg PO BEDTIME [facility] Last Admin: 01/25/25 21:09 Dose: 250 mg Divalproex Sodium (Divalproex Sodium 500 Mg Tablet.) 500 mg PO DAILY [facility] Last Admin: 01/26/25 06:13 Dose: 500 mg Docusate Sodium (Docusate Sodium 100 Mg Capsule) 100 mg PO BID PRN PRN Reason: Constipation Last Admin: 01/26/25 11:05 Dose: 100 mg Fluphenazine HCl (Fluphenazine Hcl 5 Mg Tablet) 5 mg PO BID [facility] Last Admin: 01/26/25 06:13 Dose: 5 mg Fluphenazine HCl (Fluphenazine Hcl 5 Mg Tablet) 5 mg PO DAILY PRN PRN Reason: agitation Last Admin: 01/25/25 04:00 Dose: 5 mg Hydrocortisone (Hydrocortisone 2.5 % Rectal Cr 30 Gm Tube) 1 appl AK DAILY PRN PRN Reason: hemrroids Last Admin: 01/25/25 13:51 Dose: 1 appl Hydroxyzine HCl (Hydroxyzine Hcl 25 Mg Tablet) 25 mg PO Q6H PRN PRN Reason: mild anxiety Last Admin: 01/26/25 11:05 Dose: 25 mg Lorazepam (Lorazepam 1 Mg Tablet) 2 mg PO Q4H PRN PRN Reason: agitation Last Admin: 01/25/25 21:04 Dose: 2 mg Magnesium Hydroxide (Milk Of Magnesia 30 Ml Oral.Susp) 30 ml PO DAILY PRN PRN Reason: Constipation Last Admin: 01/24/25 06:23 Dose: 30 ml Multivitamins/Vitamin C (Multivitamin Tablet) 1 tab PO DAILY VERONICA Last Admin: 01/26/25 06:16 Dose: 1 tab Nicotine (Nicotine 14 Mg Patch.Td24) 14 mg TRANSDERMA DAILY VERONICA Last Admin: 01/26/25 06:12 Dose: 14 mg Nicotine Polacrilex (Nicotine Polacrilex 2 Mg Gum) 4 mg BUCCAL Q2H PRN PRN Reason: Nicotine Cravings Last Admin: 01/26/25 07:26 Dose: 4 mg Prazosin HCl (Prazosin Hcl 1 Mg Capsule) 1 mg PO BEDTIME VERONICA; Protocol Last Admin: 01/25/25 21:07 Dose: 1 mg Trazodone HCl (Trazodone Hcl 100 Mg Tablet) 100 mg PO BEDTIME MRX1 PRN PRN Reason: Insomnia Last Admin: 01/25/25 21:07 Dose: 100 mg Allergies Allergies Allergy/AdvReac Type Severity Reaction Status Date / Time olanzapine (From Zyprexa) AdvReac Rash Verified 12/31/24 18:41 Assessment & Plan Assessment & Plan (1) Psychosis: Status: Acute Code(s): F29 - Unspecified psychosis not due to a substance or known physiological condition Plan Ms. Sheridan is a 34 year-old woman who presents with s/s of psychosis, disorganized, some degree of paranoia. She had similar episode back in 2020. 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 I do suspect that there may be underlying psychiatric disorder that is triggered by amphetamine use but not necessarily caused by it. Further evaluation to clarify dx is needed. We discussed inpt level of care. We also discussed restarting risperidone 1mg po BID. low dose clonazepam. continue clonidine. 1. IPLOC 2. start risperidone 1mg po BID. Clonazepam 0.5mg po BID. 01/05: Continue current regimen and plans. 01/06: slept only 2 hours, disorganized, decompensated behaviors. unable to interact cogently. refusing risperidone, will offer seroquel instead. possible bipolar diathesis, T/C mood stabilizer. delirium also a possibility, as the mental status change since admission appears to be striking. 01/07: took seroquel 200 last night, slept 5.5 hours. more organized, linear, able to engage today. continue current mgmt. 01/08: refused seroquel last NOC, slept only 30 minutes. agitated, bizarre, disorganized today. commitment paperwork filed. 01/09: refused meds yesterday but got IMs due to behaviors (outbursts, touching peers, yelling, banging doors, pushed her sitter, climbing on tables and chairs. threatening to stab self with pens). more linear and engageable today, once again the day after having takenm medication. agrees to continue to take seroquel 200 mg QHS. 01/10: took seroquel last NOC and slept 4 hours overnight, but bizarre today. less agitation and intrusiveness than yesterday, but still bizarre and fairly intrusive. pt appears willing to take risperidone, will DC seroquel and return to dosing of risperidone 2 mg BID. took first dose this afternoon. court next monday. 01/11 very paranoid, fearful, taking medications 01/12 continue tx. 01/13: appears a bit more organized today than when not taking medications, although slow and processing poorly. declines to sign CV. commitment hearing tomorrow. 01/14: hearing continued until 01/24 for SINDY. add klonopin 0.5 BID ODT, change risperidone formulation to liquid (pt has been inducing vomiting repeatedly with toothbrush). hold toothbrush unless actively brushing teeth. continues interactive to some extent with MD today, but has been grabbing badges, touching others, and tried to vault into the nursing station in the past 24H. 01/15: IM medication after threatening to punch staffing consultant with intrusive and aggressive behaviors toward peers. pt did not take klonopin as ordered yesterday. DC klonopin and start VPA 500 BID. per staff, running. tried to make herself vomit after taking PRN. labile. ate her feces in the shower and tried to feed it to her 1:1. crawling under tables. tried to jump into nurses station x2. took her shirt off and swinging it around. did not sleep at all. slept at 7:30am. 01/16: refusing VPA, taking risperidone. napped after IMs yesterday. has been bizarre and labile since. slept only 2 hours overnight. continue current mgmt. 01/17: agitated, bizarre, and aggressive behaviors yesterday (punching and kicking beard, stripping off in milieu, attempting to intimidate staff, grabbing stress balls out of staff's hands). did take VPA this morning on its being offered a second time. more calm today. taking risperidone. 01/18: intermittently refusing VPA, seems to be taking risperidone. asks MD if he is alive, then proposes elbow bump. accusing staff of stealing her things (phone), calling mother and enrollment services vice president in the middle of the night. slept less than 4 hours. 01/19: more lucid today. concerned about risperidone weight gain. agrees to DC risperidone and try prolixin instead, starting at 2.5 BID. 01/20: very disorganized, bizarre, psychotic today. likely due to equivalent dosing of prolixin being given much lower than prior risperidone. as pt seems to be tolerating prolixin without issues, increase prolixin dosing from 2.5 BID to 5 BID. otherwise continue current mgmt. 01/21: less bizarre and disorganized, but still quite ill. variably compliant with medications. c/o leg pain, lowering self to floor; started cogentin 0.5 BID due to concern for dystonia. c/o nightmares, h/o prazosin with good effect. add prazosin 1 mg QHS as of tonight. 01/22: Patients states that she is good. She is scared of [place] herpes after having sex. She refused to participate in an interview with this provider, and walked away stating i don't need a provider. She was observed by this provider, pacing the [place]. Continue current treatment regimen. 01/23: disorganized and dangerous behaviors. voluntarily took IMs. court tomorrow. 01/24: remains disorganized. ran into staff member yesterday, postured and threatened other staff afterward. slept about 6.[address] afternoon. 01/25/25: Staff 5 6 hours with broken sleep. Compliant with medication with lots of encouragement from yesterday, refused her vitamins in the morning. CT scan was negative, she fell early in the morning, witness her head hit the wall the trying to put her pants on. Slightly improved in mood with medication compliant. VPA level is 52,1 low side. However patient not consistently take it every day. We will recheck. He is on section 8. Pending Wei's order. Less irritable, less racing. 01/26/25: Mostly compliant with medication, to 250/750 mg of Depakote scheduled at bedtime. Labile, restless, poor boundaries, sexually inappropriate behavior, mood is aggravated . Disorganized. Slightly improving but not much. She is better in terms of compliant with medications. Patient educated on: medication risk/benefits Informed Consent: further education needed Reason for continued inpatient stay Substantial Risk for: med/psych decompensation Time Spent With Patient Time: Total time managing care of this patient today ____ minutes.
[2025-01-26] MEDS: Hydrocortisone 2.5 % Rectal Cr 30 GM TUBE 1 APPL PR (14:57)
[2025-01-26] MEDS: Milk of Magnesia 30 ML ORAL.SUSP PO (14:59)
[2025-01-26 20:00] VITALS: RESP 20
--- NOTE | 2025-01-27 01:58 | PC.NURSE ---
UP AGITATED, ACCUSING STAFF OF WANTING TO HARM HER. RUNNING UP THE HALLWAY. YELLING OUT. PLACING SELF ON FLOOR, LAYING ON BACK AND PROPELLING HER SELF DOWN THE HALLWAY USING HER LEGS, EXPOSING HER MARSHAL AREA BY PULLING HER SHORTS ASIDE BRIEFLY. ACCEPTED 2 MG ATIVAN PO BUT REFUSING PRN PROLIXIN OR CLONIDINE. HIGHLY ANXIOUS AND IMPULSIVE. SECURITY WAS CALLED TO STAND BY. AFTER TAKING ATIVAN RETURNED TO HER ROOM.
[2025-01-27] MEDS: Nicotine 14 MG PATCH.TD24 TRANSDERMA (07:21)
--- NOTE | 2025-01-27 07:24 | PC.NURSE ---
requested AM medications at this time, administered
[2025-01-27 08:00] VITALS: BP 107/54; PULSE 101; RESP 16; TEMP 36.7; O2SAT 99
[2025-01-27 15:13] VITALS: BP 122/65
--- NOTE | 2025-01-27 15:41 | P.PNPSI_ITS ---
Subjective Subjective Date of Service: 01/27/25 Reason For Visit: Crisis Interim History: asking who wrote MD's name on her wall, then asking MD to help her solve the case. wandering the [place], impulsive. per TERESSA Barron, pt improved from last week, better able to have productive interaction and discussion. slept 2.5 hours last night. 5-6 hours monday or monday night. trying to disimpact self with kitchen utensils, also using hand. unsanitary handling of her own fecal material in the milieu. running 01/25, fell again. demanding then refusing medications or care. Mental Status Exam Mental Status Exam Narrative: Appearance: adequately dressed and groomed Behavior: pacing the [place] Speech: decr amount, nml loudness. nml latency. TP: more organized TC: concrete Mood: unknown Affect: calm AH/VH: none expressed Insight/judgment: impaired x 2. Memory/cog: alert, impaired secondary to psychiatric symptoms. Diagnostics Vital Signs (24Hr): Vital Signs - 24 hr 01/26/25 20:00 01/27/25 08:00 01/27/25 15:13 Temperature 98.1 F Pulse Rate 101 H Respiratory Rate 20 16 Blood Pressure 107/54 L 122/65 Pulse Oximetry 99 Oxygen Delivery Method Room Air BMI result Body Mass Index 20.5 Labs 01/09/25 16:36 01/09/25 16:36 Imaging Radiology Impressions: ITS Impressions Hand X-Ray 01/16/25 11:30 IMPRESSION: Unremarkable right hand Electronically signed by: Casa Rush MD 01/16/2025 11:46 AM EDT Medications Medications Current Medications Acetaminophen (Acetaminophen 325 Mg Tablet) 650 mg PO Q6H PRN PRN Reason: Headache/Pain, Scale 1-10 Last Admin: 01/26/25 14:59 Dose: 650 mg Al Hydroxide/Mg Hydroxide (Magnesium Hydrox/Alum Hydrox 30 Ml Oral.Susp) 30 ml PO Q6H PRN PRN Reason: Heartburn/Nausea Chlorpromazine HCl (Chlorpromazine Hcl 100 Mg Tablet) 100 mg PO BEDTIME VERONICA Clonidine HCl (Clonidine Hcl 0.2 Mg Tablet) 0.2 mg PO TID PRN; Protocol PRN Reason: Anxiety Last Admin: 01/27/25 15:13 Dose: 0.2 mg Diazepam (Diazepam 5 Mg Tablet) 5 mg PO Q4H PRN PRN Reason: agitation Diazepam (Diazepam 5 Mg Tablet) 10 mg PO BEDTIME VERONICA Divalproex Sodium (Divalproex Sodium 500 Mg Tablet.Dr) 500 mg PO BID VERONICA Docusate Sodium (Docusate Sodium 100 Mg Capsule) 100 mg PO BID PRN PRN Reason: Constipation Last Admin: 01/26/25 11:05 Dose: 100 mg Hydrocortisone (Hydrocortisone 2.5 % Rectal Cr 30 Gm Tube) 1 appl NM DAILY PRN PRN Reason: hemrroids Last Admin: 01/26/25 14:57 Dose: 1 appl Magnesium Hydroxide (Milk Of Magnesia 30 Ml Oral.Susp) 30 ml PO DAILY PRN PRN Reason: Constipation Last Admin: 01/26/25 14:59 Dose: 30 ml Multivitamins/Vitamin C (Multivitamin Tablet) 1 tab PO DAILY VERONICA Last Admin: 01/27/25 07:21 Dose: 1 tab Nicotine (Nicotine 14 Mg Patch.Td24) 14 mg TRANSDERMA DAILY VERONICA Last Admin: 01/27/25 07:21 Dose: 14 mg Nicotine Polacrilex (Nicotine Polacrilex 2 Mg Gum) 4 mg BUCCAL Q2H PRN PRN Reason: Nicotine Cravings Last Admin: 01/26/25 14:32 Dose: 4 mg Polyethylene Glycol (Polyethylene Glycol 3350 17 Gm Powd.Pack) 17 gm PO DAILY VERONICA Last Admin: 01/27/25 12:38 Dose: Not Given Prazosin HCl (Prazosin Hcl 1 Mg Capsule) 1 mg PO BEDTIME VERONICA; Protocol Last Admin: 01/26/25 20:34 Dose: 1 mg Risperidone (Risperidone 2 Mg Tablet) 2 mg PO BID VERONICA Risperidone (Risperidone 1 Mg Tablet) 1 mg PO Q4H PRN PRN Reason: agitation Allergies Allergies Allergy/AdvReac Type Severity Reaction Status Date / Time olanzapine (From Zyprexa) AdvReac Rash Verified 12/31/24 18:41 Assessment & Plan Assessment & Plan (1) Psychosis: Status: Acute Code(s): F29 - Unspecified psychosis not due to a substance or known physiological condition Plan Ms. Sheridan is a 34 year-old woman who presents with s/s of psychosis, disorganized, some degree of paranoia. She had similar episode back in 2020. 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 I do suspect that there may be underlying psychiatric disorder that is triggered by amphetamine use but not necessarily caused by it. Further evaluation to clarify dx is needed. We discussed inpt level of care. We also discussed restarting risperidone 1mg po BID. low dose clonazepam. continue clonidine. 1. IPLOC 2. start risperidone 1mg po BID. Clonazepam 0.5mg po BID. 01/05: Continue current regimen and plans. 01/06: slept only 2 hours, disorganized, decompensated behaviors. unable to interact cogently. refusing risperidone, will offer seroquel instead. possible bipolar diathesis, T/C mood stabilizer. delirium also a possibility, as the mental status change since admission appears to be striking. 01/07: took seroquel 200 last night, slept 5.5 hours. more organized, linear, able to engage today. continue current mgmt. 01/08: refused seroquel last NOC, slept only 30 minutes. agitated, bizarre, disorganized today. commitment paperwork filed. 01/09: refused meds yesterday but got IMs due to behaviors (outbursts, touching peers, yelling, banging doors, pushed her sitter, climbing on tables and chairs. threatening to stab self with pens). more linear and engageable today, once again the day after having takenm medication. agrees to continue to take seroquel 200 mg QHS. 01/10: took seroquel last NOC and slept 4 hours overnight, but bizarre today. less agitation and intrusiveness than yesterday, but still bizarre and fairly intrusive. pt appears willing to take risperidone, will DC seroquel and return to dosing of risperidone 2 mg BID. took first dose this afternoon. court next monday. 01/11 very paranoid, fearful, taking medications 01/12 continue tx. 01/13: appears a bit more organized today than when not taking medications, although slow and processing poorly. declines to sign CV. commitment hearing tomorrow. 01/14: hearing continued until 01/24 for SINDY. add klonopin 0.5 BID ODT, change risperidone formulation to liquid (pt has been inducing vomiting repeatedly with toothbrush). hold toothbrush unless actively brushing teeth. continues interactive to some extent with MD today, but has been grabbing badges, touching others, and tried to vault into the nursing station in the past 24H. 01/15: IM medication after threatening to punch staff design engineer with intrusive and aggressive behaviors toward peers. pt did not take klonopin as ordered yesterday. DC klonopin and start VPA 500 BID. per staff, running. tried to make herself vomit after taking PRN. labile. ate her feces in the shower and tried to feed it to her 1:1. crawling under tables. tried to jump into nurses station x2. took her shirt off and swinging it around. did not sleep at all. slept at 7:30am. 01/16: refusing VPA, taking risperidone. napped after IMs yesterday. has been bizarre and labile since. slept only 2 hours overnight. continue current mgmt. 01/17: agitated, bizarre, and aggressive behaviors yesterday (punching and kicking beard, stripping off in milieu, attempting to intimidate staff, grabbing stress balls out of staff's hands). did take VPA this morning on its being offered a second time. more calm today. taking risperidone. 01/18: intermittently refusing VPA, seems to be taking risperidone. asks MD if he is alive, then proposes elbow bump. accusing staff of stealing her things (phone), calling mother and landscape architecture teacher in the middle of the night. slept less than 4 hours. 01/19: more lucid today. concerned about risperidone weight gain. agrees to DC risperidone and try prolixin instead, starting at 2.5 BID. 01/20: very disorganized, bizarre, psychotic today. likely due to equivalent dosing of prolixin being given much lower than prior risperidone. as pt seems to be tolerating prolixin without issues, increase prolixin dosing from 2.5 BID to 5 BID. otherwise continue current mgmt. 01/21: less bizarre and disorganized, but still quite ill. variably compliant with medications. c/o leg pain, lowering self to floor; started cogentin 0.5 BID due to concern for dystonia. c/o nightmares, h/o prazosin with good effect. add prazosin 1 mg QHS as of tonight. 01/22: Patients states that she is good. She is scared of [place] herpes after having sex. She refused to participate in an interview with this provider, and walked away stating i don't need a provider. She was observed by this provider, pacing the [place]. Continue current treatment regimen. 01/23: disorganized and dangerous behaviors. voluntarily took IMs. court tomorrow. 01/24: remains disorganized. ran into staff member yesterday, postured and threatened other staff afterward. slept about 6.[address] afternoon. 01/25/25: Staff 5 6 hours with broken sleep. Compliant with medication with lots of encouragement from yesterday, refused her vitamins in the morning. CT scan was negative, she fell early in the morning, witness her head hit the wall the trying to put her pants on. Slightly improved in mood with medication compliant. VPA level is 52,1 low side. However patient not consistently take it every day. We will recheck. He is on section 8. Pending Wei's order. Less irritable, less racing. 01/26/25: Mostly compliant with medication, to 250/750 mg of Depakote scheduled at bedtime. Labile, restless, poor boundaries, sexually inappropriate behavior, mood is aggravated . Disorganized. Slightly improving but not much. She is better in terms of compliant with medications. 01/27: mostly compliant with meds. improved from last week, more organized and less labile today. agreement reached on medications, reinstate risperidone as primary antipsychotic Tx, remove request for mood stabilizers, remove ativan. DC prolixin, begin taper of VPA, restart risperidone 2 BID, add thorazine 100 and valium 10 at HS to encourage sleep. awaiting med order. Reason for continued inpatient stay Substantial Risk for: inability to function Time Spent With Patient Time: Total time managing care of this patient today __35__ minutes.
[2025-01-27 17:23] VITALS: BP 131/76; PULSE 110; RESP 20; TEMP 36.4; O2SAT 96
--- NOTE | 2025-01-27 19:04 | PC.NURSE ---
Following arrival of dinner patient requesting utensils. Unable to provide utensils at this time due to recent misuse. Patient reactive when rational explanation was provided. Grabbed staff badge to obtain access to kitchen, staff stabilized patient wrist, directive given to let go of staff badge, patient released badge, staff released wrist. When unsuccessful patient threatened to throw food all over and ran to room. Staff intercepted the food provided to patient in effort to reduce likelihood of throwing food all over. Patient then attempted to bite staff person x2, lunging and kicking at staff. Firm limits set on behavior. Informed behavior was not acceptable. Patient was offered and accepted medication.
[2025-01-27 20:00] VITALS: BP 134/68; PULSE 108; RESP 16; TEMP 36.6
[2025-01-27 20:04] VITALS: BP 134/68
--- NOTE | 2025-01-27 20:08 | PC.NURSE ---
Patient exposed genitals to 1:1 staff 3-4 times per staff report. Staff reports patient initially put her hands in her pants and asked staff if she wanted to take her fingers.
[2025-01-28 04:42] VITALS: BP 130/62
[2025-01-28] MEDS: Nicotine 14 MG PATCH.TD24 TRANSDERMA (06:21)
[2025-01-28 07:49] VITALS: BP 128/60; PULSE 105; RESP 16; TEMP 36.3; O2SAT 98
[2025-01-28 10:01] VITALS: BP 130/76
--- NOTE | 2025-01-28 16:07 | P.PNPSO_ITS ---
Subjective Subjective Date of Service: 01/28/25 Reason For Visit: Crisis Interim History: wandering the [place], initially agrees to meet with MD then declines. did ask, can i poke you to see if you're alive? settled for elbow bump. expressing frustration with behavioral plan contingency which does not allow her to go outside until after 48 hours without dangerous behaviors. per staff, more linear and logical today. c/o depression yesterday. intrusive SI. grabbed staff badge eves. attempted to bite staff x2. pushing, trying to kick staff. intentionally shoulder-checked a peer. exposed genitalia to 1:1 staff 3-4 times,slept about 5 hours. Diagnostics Vital Signs (24Hr): Vital Signs - 24 hr 01/27/25 17:23 01/27/25 20:00 01/27/25 20:04 Temperature 97.5 F 97.8 F Pulse Rate 110 H 108 H Respiratory Rate 20 16 Blood Pressure 131/76 134/68 134/68 Pulse Oximetry 96 Oxygen Delivery Method Room Air 01/28/25 04:42 01/28/25 07:49 01/28/25 10:01 Temperature 97.4 F Pulse Rate 105 H Respiratory Rate 16 Blood Pressure 130/62 128/60 130/76 Pulse Oximetry 98 Oxygen Delivery Method Room Air BMI result Body Mass Index 20.5 Labs 01/09/25 16:36 01/09/25 16:36 Imaging Radiology Impressions: ITS Impressions Hand X-Ray 01/16/25 11:30 IMPRESSION: Unremarkable right hand Electronically signed by: Casa Rush MD 01/16/2025 11:46 AM EDT Discharge Plan Discharge Referrals: Mercy Santiago MD [Primary Care Provider, Internal Medicine] Discharge Medications: No Action nicotine 14 mg/24 hr patch 24 hour 1 patch transdermal DAILY Qty: 14 0RF clonidine HCl 0.2 mg tablet 0.2 mg PO TID PRN (Reason: Anxiety) Print Language: Indonesian Assessment & Plan Total time managing care of this patient today ____ minutes.
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
[2025-01-28 19:30] VITALS: BP 134/86; PULSE 116; RESP 16; TEMP 36.7
[2025-01-28 19:53] VITALS: BP 134/56
[2025-01-29] MEDS: Nicotine 14 MG PATCH.TD24 TRANSDERMA (09:32)
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
[2025-01-29 16:56] VITALS: BP 131/85; PULSE 113; O2SAT 97
[2025-01-29] MEDS: diazePAM 10 MG/2 ML CARTRIDGE 5 MG IM (20:10)
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
[2025-01-30] MEDS: Nicotine 14 MG PATCH.TD24 TRANSDERMA (06:14)
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
[2025-01-30] MEDS: Magnesium Hydrox/Alum Hydrox 30 ML ORAL.SUSP PO (14:06)
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
[2025-01-30 22:23] VITALS: BP 109/60; PULSE 90
[2025-01-30] MEDS: diazePAM 10 MG/2 ML CARTRIDGE 5 MG IM (22:29)
[2025-01-31 03:29] VITALS: BMI 21.7
[2025-01-31 08:00] VITALS: BP 105/52; PULSE 92; RESP 18; TEMP 36.5; O2SAT 97
[2025-01-31] MEDS: Nicotine 14 MG PATCH.TD24 TRANSDERMA (08:45)
[2025-01-31 10:16] VITALS: BP 129/72; PULSE 67
[2025-01-31 15:03] VITALS: BP 127/73; PULSE 68
--- NOTE | 2025-01-31 15:53 | HO.PSYCHPN ---
Subjective Subjective Date of Service: 01/31/25 Reason For Visit: Crisis Interim History: calm this morning. not easily engaged. no questions or complaints for MD. per staff, slamming doors later in the day yesterday. upset after visit with sister. akathisia NOC. asking for IM, got IM valium 5 mg. weighed self, induced vomiting after. slept about 2.5 hours. Mental Status Exam Mental Status Exam Narrative: Appearance: adequately dressed and groomed Behavior: pacing the [place], in room Speech: nml amount, nml loudness. nml latency. TP: more organized TC: concrete Mood: unknown Affect: calm AH/VH: none expressed Insight/judgment: impaired x 2. Memory/cog: alert, impaired secondary to psychiatric symptoms. Diagnostics Vital Signs (24Hr): Vital Signs - 24 hr 01/30/25 22:23 01/31/25 08:00 01/31/25 10:16 Temperature 97.7 F Pulse Rate 90 92 67 Respiratory Rate 18 Blood Pressure 109/60 105/52 L 129/72 Pulse Oximetry 97 Oxygen Delivery Method Room Air 01/31/25 15:03 Temperature Pulse Rate 68 Respiratory Rate Blood Pressure 127/73 Pulse Oximetry Oxygen Delivery Method BMI result Body Mass Index 21.7 Labs 01/09/25 16:36 01/09/25 16:36 Imaging Radiology Impressions: ITS Impressions Hand X-Ray 01/16/25 11:30 IMPRESSION: Unremarkable right hand Electronically signed by: Casa Rush MD 01/16/2025 11:46 AM EDT RP Hand X-Ray 01/29/25 07:30 IMPRESSION: Unremarkable examination of the right hand. Electronically signed by: Obdulio Tolbert MD 01/30/2025 07:56 AM EDT RP Medications Medications Current Medications Acetaminophen (Acetaminophen 325 Mg Tablet) 650 mg PO Q6H PRN PRN Reason: Headache/Pain, Scale 1-10 Last Admin: 01/30/25 14:06 Dose: 650 mg Al Hydroxide/Mg Hydroxide (Magnesium Hydrox/Alum Hydrox 30 Ml Oral.Susp) 30 ml PO Q6H PRN PRN Reason: Heartburn/Nausea Last Admin: 01/30/25 14:06 Dose: 30 ml Diazepam (Diazepam 5 Mg Tablet) 5 mg PO Q4H PRN PRN Reason: agitation Last Admin: 01/30/25 09:10 Dose: 5 mg Diazepam (Diazepam 5 Mg Tablet) 15 mg PO BEDTIME [facility] Last Admin: 01/30/25 20:08 Dose: 15 mg Diazepam (Diazepam 10 Mg/2 Ml Cartridge) 5 mg IM TID PRN PRN Reason: refusal of risperidone or valium Diazepam (Diazepam 5 Mg Tablet) 5 mg PO BID@0900,1500 [facility] Last Admin: 01/31/25 15:03 Dose: 5 mg Divalproex Sodium (Divalproex Sodium 250 Mg Tablet.Dr) 250 mg PO TID [facility] Last Admin: 01/31/25 15:03 Dose: 250 mg Docusate Sodium (Docusate Sodium 100 Mg Capsule) 100 mg PO BID PRN PRN Reason: Constipation Last Admin: 01/30/25 20:10 Dose: 100 mg Haloperidol Lactate (Haloperidol Lactate 5 Mg/Ml Vial) 5 mg IM BID PRN PRN Reason: refusal of scheduled risperidone Last Admin: 01/29/25 20:10 Dose: 5 mg Hydrocortisone (Hydrocortisone 2.5 % Rectal Cr 30 Gm Tube) 1 appl KS DAILY PRN PRN Reason: hemrroids Last Admin: 01/26/25 14:57 Dose: 1 appl Magnesium Hydroxide (Milk Of Magnesia 30 Ml Oral.Susp) 30 ml PO DAILY PRN PRN Reason: Constipation Last Admin: 01/26/25 14:59 Dose: 30 ml Multivitamins/Vitamin C (Multivitamin Tablet) 1 tab PO DAILY [facility] Last Admin: 01/31/25 10:15 Dose: 1 tab Nicotine (Nicotine 14 Mg Patch.Td24) 14 mg TRANSDERMA DAILY [facility] Last Admin: 01/31/25 08:45 Dose: 14 mg Nicotine Polacrilex (Nicotine Polacrilex 2 Mg Gum) 4 mg BUCCAL Q2H PRN PRN Reason: Nicotine Cravings Last Admin: 01/30/25 18:46 Dose: 4 mg Polyethylene Glycol (Polyethylene Glycol 3350 17 Gm Powd.Pack) 17 gm PO DAILY [facility] Last Admin: 01/31/25 10:18 Dose: Not Given Propranolol HCl (Propranolol Hcl 20 Mg Tablet) 20 mg PO TID [facility]; Protocol Last Admin: 01/31/25 15:03 Dose: 20 mg Quetiapine Fumarate (Quetiapine Fumarate 100 Mg Tablet) 100 mg PO BID@0900,1500 [facility] Last Admin: 01/31/25 15:03 Dose: 100 mg Quetiapine Fumarate (Quetiapine Fumarate 100 Mg Tablet) 500 mg PO BEDTIME [facility] Allergies Allergies Allergy/AdvReac Type Severity Reaction Status Date / Time olanzapine (From Zyprexa) AdvReac Rash Verified 12/31/24 18:41 Assessment & Plan Assessment & Plan (1) Psychosis: Status: Acute Code(s): F29 - Unspecified psychosis not due to a substance or known physiological condition Plan Ms. Sheridan is a 34 year-old woman who presents with s/s of psychosis, disorganized, some degree of paranoia. She had similar episode back in 2020. 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 I do suspect that there may be underlying psychiatric disorder that is triggered by amphetamine use but not necessarily caused by it. Further evaluation to clarify dx is needed. We discussed inpt level of care. We also discussed restarting risperidone 1mg po BID. low dose clonazepam. continue clonidine. 1. IPLOC 2. start risperidone 1mg po BID. Clonazepam 0.5mg po BID. 01/05: Continue current regimen and plans. 01/06: slept only 2 hours, disorganized, decompensated behaviors. unable to interact cogently. refusing risperidone, will offer seroquel instead. possible bipolar diathesis, T/C mood stabilizer. delirium also a possibility, as the mental status change since admission appears to be striking. 01/07: took seroquel 200 last night, slept 5.5 hours. more organized, linear, able to engage today. continue current mgmt. 01/08: refused seroquel last NOC, slept only 30 minutes. agitated, bizarre, disorganized today. commitment paperwork filed. 01/09: refused meds yesterday but got IMs due to behaviors (outbursts, touching peers, yelling, banging doors, pushed her sitter, climbing on tables and chairs. threatening to stab self with pens). more linear and engageable today, once again the day after having takenm medication. agrees to continue to take seroquel 200 mg QHS. 01/10: took seroquel last NOC and slept 4 hours overnight, but bizarre today. less agitation and intrusiveness than yesterday, but still bizarre and fairly intrusive. pt appears willing to take risperidone, will DC seroquel and return to dosing of risperidone 2 mg BID. took first dose this afternoon. court next monday. 01/11 very paranoid, fearful, taking medications 01/12 continue tx. 01/13: appears a bit more organized today than when not taking medications, although slow and processing poorly. declines to sign CV. commitment hearing tomorrow. 01/14: hearing continued until 01/24 for SINDY. add klonopin 0.5 BID ODT, change risperidone formulation to liquid (pt has been inducing vomiting repeatedly with toothbrush). hold toothbrush unless actively brushing teeth. continues interactive to some extent with MD today, but has been grabbing badges, touching others, and tried to vault into the nursing station in the past 24H. 01/15: IM medication after threatening to punch administrative staff supervisor with intrusive and aggressive behaviors toward peers. pt did not take klonopin as ordered yesterday. DC klonopin and start VPA 500 BID. per staff, running. tried to make herself vomit after taking PRN. labile. ate her feces in the shower and tried to feed it to her 1:1. crawling under tables. tried to jump into nurses station x2. took her shirt off and swinging it around. did not sleep at all. slept at 7:30am. 01/16: refusing VPA, taking risperidone. napped after IMs yesterday. has been bizarre and labile since. slept only 2 hours overnight. continue current mgmt. 01/17: agitated, bizarre, and aggressive behaviors yesterday (punching and kicking beard, stripping off in milieu, attempting to intimidate staff, grabbing stress balls out of staff's hands). did take VPA this morning on its being offered a second time. more calm today. taking risperidone. 01/18: intermittently refusing VPA, seems to be taking risperidone. asks MD if he is alive, then proposes elbow bump. accusing staff of stealing her things (phone), calling mother and credit department manager in the middle of the night. slept less than 4 hours. 01/19: more lucid today. concerned about risperidone weight gain. agrees to DC risperidone and try prolixin instead, starting at 2.5 BID. 01/20: very disorganized, bizarre, psychotic today. likely due to equivalent dosing of prolixin being given much lower than prior risperidone. as pt seems to be tolerating prolixin without issues, increase prolixin dosing from 2.5 BID to 5 BID. otherwise continue current mgmt. 01/21: less bizarre and disorganized, but still quite ill. variably compliant with medications. c/o leg pain, lowering self to floor; started cogentin 0.5 BID due to concern for dystonia. c/o nightmares, h/o prazosin with good effect. add prazosin 1 mg QHS as of tonight. 01/22: Patients states that she is good. She is scared of [place] herpes after having sex. She refused to participate in an interview with this provider, and walked away stating i don't need a provider. She was observed by this provider, pacing the [place]. Continue current treatment regimen. 01/23: disorganized and dangerous behaviors. voluntarily took IMs. court tomorrow. 01/24: remains disorganized. ran into staff member yesterday, postured and threatened other staff afterward. slept about 6.[address] this afternoon. 01/25/25: Staff 5 6 hours with broken sleep. Compliant with medication with lots of encouragement from yesterday, refused her vitamins in the morning. CT scan was negative, she fell early in the morning, witness her head hit the wall the trying to put her pants on. Slightly improved in mood with medication compliant. VPA level is 52,1 low side. However patient not consistently take it every day. We will recheck. He is on section 8. Pending Wei's order. Less irritable, less racing. 01/26/25: Mostly compliant with medication, to 250/750 mg of Depakote scheduled at bedtime. Labile, restless, poor boundaries, sexually inappropriate behavior, mood is aggravated . Disorganized. Slightly improving but not much. She is better in terms of compliant with medications. 01/27: mostly compliant with meds. improved from last week, more organized and less labile today. agreement reached on medications, reinstate risperidone as primary antipsychotic Tx, remove request for mood stabilizers, remove ativan. DC prolixin, begin taper of VPA, restart risperidone 2 BID, add thorazine 100 and valium 10 at HS to encourage sleep. awaiting med order. 01/28: last evening was pushing, attempting to kick and bite staff, shoulder-checked peer, exposing genitalia to 1:1 staff. took meds last night and this morning. court order received today, reviewed, medications adjusted to comply with order. reportedly more linear today, but pt declined to meet with MD after brief psychotic interaction with MD. 01/29: dysregulated, agitated behaviors continue last night. calmer days. refused VPA this morning. continue VPA taper, decrease from 500 BID to 250 TID as of today. increase HS seroquel from 300 mg to 400 mg as of tonight and HS valium from 10 mg to 15 mg as of tonight for sleep and sylwia. 01/30: same pattern of calm days through mid-afternoon, then decompensation. add third scheduled dosing of risperidone in the middle of the day, schedule valium in the morning and at 3 pm, otherwise continue current mgmt. increase HS seroquel if pt does not sleep more than several hours tonight. continue VPA taper tomorrow. 01/31: calm, morning. severe akathisia eves, unable to sleep or remain still. slept only 2.5 hours. due to 4 mg risperidone daily being inadequate to treat Sx and 6 mg causing severe akathisia, will DC risperidone in favor of a less potent antipsychotic, seroquel. schedule seroquel 100/100/500. taper VPA to 250 BID as of tomorrow. propranolol 20 TID started last night for akathisia, will continue for now. Reason for continued inpatient stay Substantial Risk for: harm to self, harm to others and inability to function Time Spent With Patient Time: Total time managing care of this patient today __35__ minutes.
[2025-01-31 21:10] VITALS: RESP 16
[2025-01-31] MEDS: diazePAM 10 MG/2 ML CARTRIDGE 5 MG IM (21:29)
[2025-02-01 07:31] VITALS: BP 115/65; PULSE 89; RESP 16; TEMP 36.2; O2SAT 97
[2025-02-01] MEDS: Nicotine 14 MG PATCH.TD24 TRANSDERMA (08:40)
--- NOTE | 2025-02-01 10:46 | P.PNPSI_ITS ---
Subjective Subjective Date of Service: 02/01/25 Reason For Visit: Crisis Interim History: Seen in side room. Calm, cooperative this morning. She states that a new medication is causing sweating and that she doesn't not want to be on it. She states that she is discussing this with Dr Franklin. Also cramping in her legs. She got IM Valium in addition to the PO Valium and it helped subjectively. She is getting Valium, Propranolol and Seroquel, the latter is a recent switch to reducce akathisia sxs. She wants to leave the hospital - understands that she must discuss this with her team. No psychomotor agitation this AM. Medication Compliance: Yes Side effects from medications: Yes (as above) Review of Systems Medical Review of Systems: unchanged Mental Status Exam Mental Status Exam Patient Appearance: Well Grooomed Patient Orientation: Person, Place, Time and Situation Level of Consciousness: Awake and Appropriate Patient Behavior: Appropriate Mood Description: Calm Affect Description: Calm Patient Cognition Impaired: No Ability to Follow Directions: Good Speech Pattern: Clear and Spontaneous Speech Memory Description: Intact Hallucinations: None Delusions: Not Present Thought Process: Intact Judgement: Fair Diagnostics Vital Signs (24Hr): Vital Signs - 24 hr 01/31/25 15:03 01/31/25 21:10 02/01/25 07:31 Temperature 97.1 F Pulse Rate 68 89 Respiratory Rate 16 16 Blood Pressure 127/73 115/65 Pulse Oximetry 97 Oxygen Delivery Method Room Air BMI result Body Mass Index 21.7 Labs 01/09/25 16:36 01/09/25 16:36 Imaging Radiology Impressions: ITS Impressions Hand X-Ray 01/16/25 11:30 IMPRESSION: Unremarkable right hand Electronically signed by: Casa Rush MD 01/16/2025 11:46 AM EDT RP Hand X-Ray 01/29/25 07:30 IMPRESSION: Unremarkable examination of the right hand. Electronically signed by: Obdulio Tolbert MD 01/30/2025 07:56 AM EDT RP Medications Medications Current Medications Acetaminophen (Acetaminophen 325 Mg Tablet) 650 mg PO Q6H PRN PRN Reason: Headache/Pain, Scale 1-10 Last Admin: 02/01/25 07:33 Dose: 650 mg Al Hydroxide/Mg Hydroxide (Magnesium Hydrox/Alum Hydrox 30 Ml Oral.Susp) 30 ml PO Q6H PRN PRN Reason: Heartburn/Nausea Last Admin: 01/30/25 14:06 Dose: 30 ml Diazepam (Diazepam 5 Mg Tablet) 5 mg PO Q4H PRN PRN Reason: agitation Last Admin: 02/01/25 03:49 Dose: 5 mg Diazepam (Diazepam 5 Mg Tablet) 15 mg PO BEDTIME [facility] Last Admin: 01/31/25 21:28 Dose: Not Given Diazepam (Diazepam 10 Mg/2 Ml Cartridge) 5 mg IM TID PRN PRN Reason: refusal of seroquel or valium Last Admin: 01/31/25 21:29 Dose: 5 mg Diazepam (Diazepam 5 Mg Tablet) 5 mg PO BID@0900,1500 [facility] Last Admin: 02/01/25 08:38 Dose: 5 mg Divalproex Sodium (Divalproex Sodium 250 Mg Tablet.Dr) 250 mg PO BID [facility] Last Admin: 02/01/25 08:40 Dose: 250 mg Docusate Sodium (Docusate Sodium 100 Mg Capsule) 100 mg PO BID PRN PRN Reason: Constipation Last Admin: 01/30/25 20:10 Dose: 100 mg Haloperidol Lactate (Haloperidol Lactate 5 Mg/Ml Vial) 5 mg IM TID PRN PRN Reason: refusal of scheduled seroquel Hydrocortisone (Hydrocortisone 2.5 % Rectal Cr 30 Gm Tube) 1 appl TN DAILY PRN PRN Reason: hemrroids Last Admin: 01/26/25 14:57 Dose: 1 appl Magnesium Hydroxide (Milk Of Magnesia 30 Ml Oral.Susp) 30 ml PO DAILY PRN PRN Reason: Constipation Last Admin: 01/26/25 14:59 Dose: 30 ml Multivitamins/Vitamin C (Multivitamin Tablet) 1 tab PO DAILY [facility] Last Admin: 02/01/25 08:40 Dose: 1 tab Nicotine (Nicotine 14 Mg Patch.Td24) 14 mg TRANSDERMA DAILY [facility] Last Admin: 02/01/25 08:40 Dose: 14 mg Nicotine Polacrilex (Nicotine Polacrilex 2 Mg Gum) 4 mg BUCCAL Q2H PRN PRN Reason: Nicotine Cravings Last Admin: 01/30/25 18:46 Dose: 4 mg Polyethylene Glycol (Polyethylene Glycol 3350 17 Gm Powd.Pack) 17 gm PO DAILY [facility] Last Admin: 02/01/25 08:43 Dose: Not Given Propranolol HCl (Propranolol Hcl 20 Mg Tablet) 20 mg PO TID [facility]; Protocol Last Admin: 02/01/25 08:39 Dose: 20 mg Quetiapine Fumarate (Quetiapine Fumarate 100 Mg Tablet) 100 mg PO BID@0900,1500 [facility] Last Admin: 02/01/25 08:39 Dose: 100 mg Quetiapine Fumarate (Quetiapine Fumarate 100 Mg Tablet) 500 mg PO BEDTIME [facility] Last Admin: 01/31/25 21:26 Dose: 500 mg Allergies Allergies Allergy/AdvReac Type Severity Reaction Status Date / Time olanzapine (From Zyprexa) AdvReac Rash Verified 12/31/24 18:41 Assessment & Plan Assessment & Plan (1) Psychosis: Status: Acute Code(s): F29 - Unspecified psychosis not due to a substance or known physiological condition Plan Ms. Sheridan is a 34 year-old woman who presents with s/s of psychosis, disorganized, some degree of paranoia. She had similar episode back in 2020. 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 I do suspect that there may be underlying psychiatric disorder that is triggered by amphetamine use but not necessarily caused by it. Further evaluation to clarify dx is needed. We discussed inpt level of care. We also discussed restarting risperidone 1mg po BID. low dose clonazepam. continue clonidine. 1. IPLOC 2. start risperidone 1mg po BID. Clonazepam 0.5mg po BID. 01/05: Continue current regimen and plans. 01/06: slept only 2 hours, disorganized, decompensated behaviors. unable to interact cogently. refusing risperidone, will offer seroquel instead. possible bipolar diathesis, T/C mood stabilizer. delirium also a possibility, as the mental status change since admission appears to be striking. 01/07: took seroquel 200 last night, slept 5.5 hours. more organized, linear, able to engage today. continue current mgmt. 01/08: refused seroquel last NOC, slept only 30 minutes. agitated, bizarre, disorganized today. commitment paperwork filed. 01/09: refused meds yesterday but got IMs due to behaviors (outbursts, touching peers, yelling, banging doors, pushed her sitter, climbing on tables and chairs. threatening to stab self with pens). more linear and engageable today, once again the day after having takenm medication. agrees to continue to take seroquel 200 mg QHS. 01/10: took seroquel last NOC and slept 4 hours overnight, but bizarre today. less agitation and intrusiveness than yesterday, but still bizarre and fairly intrusive. pt appears willing to take risperidone, will DC seroquel and return to dosing of risperidone 2 mg BID. took first dose this afternoon. court next monday. 01/11 very paranoid, fearful, taking medications 01/12 continue tx. 01/13: appears a bit more organized today than when not taking medications, although slow and processing poorly. declines to sign CV. commitment hearing tomorrow. 01/14: hearing continued until 01/24 for SINDY. add klonopin 0.5 BID ODT, change risperidone formulation to liquid (pt has been inducing vomiting repeatedly with toothbrush). hold toothbrush unless actively brushing teeth. continues interactive to some extent with MD today, but has been grabbing badges, touching others, and tried to vault into the nursing station in the past 24H. 01/15: IM medication after threatening to punch medical staff director with intrusive and aggressive behaviors toward peers. pt did not take klonopin as ordered yesterday. DC klonopin and start VPA 500 BID. per staff, running. tried to make herself vomit after taking PRN. labile. ate her feces in the shower and tried to feed it to her 1:1. crawling under tables. tried to jump into nurses station x2. took her shirt off and swinging it around. did not sleep at all. slept at 7:30am. 01/16: refusing VPA, taking risperidone. napped after IMs yesterday. has been bizarre and labile since. slept only 2 hours overnight. continue current mgmt. 01/17: agitated, bizarre, and aggressive behaviors yesterday (punching and kicking beard, stripping off in milieu, attempting to intimidate staff, grabbing stress balls out of staff's hands). did take VPA this morning on its being offered a second time. more calm today. taking risperidone. 01/18: intermittently refusing VPA, seems to be taking risperidone. asks MD if he is alive, then proposes elbow bump. accusing staff of stealing her things (phone), calling mother and lithoplate maker in the middle of the night. slept less than 4 hours. 01/19: more lucid today. concerned about risperidone weight gain. agrees to DC risperidone and try prolixin instead, starting at 2.5 BID. 01/20: very disorganized, bizarre, psychotic today. likely due to equivalent dosing of prolixin being given much lower than prior risperidone. as pt seems to be tolerating prolixin without issues, increase prolixin dosing from 2.5 BID to 5 BID. otherwise continue current mgmt. 01/21: less bizarre and disorganized, but still quite ill. variably compliant with medications. c/o leg pain, lowering self to floor; started cogentin 0.5 BID due to concern for dystonia. c/o nightmares, h/o prazosin with good effect. add prazosin 1 mg QHS as of tonight. 01/22: Patients states that she is good. She is scared of [place] herpes after having sex. She refused to participate in an interview with this provider, and walked away stating i don't need a provider. She was observed by this provider, pacing the [place]. Continue current treatment regimen. 01/23: disorganized and dangerous behaviors. voluntarily took IMs. court tomorrow. 01/24: remains disorganized. ran into staff member yesterday, postured and threatened other staff afterward. slept about 6.[address] this afternoon. 01/25/25: Staff 5 6 hours with broken sleep. Compliant with medication with lots of encouragement from yesterday, refused her vitamins in the morning. CT scan was negative, she fell early in the morning, witness her head hit the wall the trying to put her pants on. Slightly improved in mood with medication compliant. VPA level is 52,1 low side. However patient not consistently take it every day. We will recheck. He is on section 8. Pending Wei's order. Less irritable, less racing. 01/26/25: Mostly compliant with medication, to 250/750 mg of Depakote scheduled at bedtime. Labile, restless, poor boundaries, sexually inappropriate behavior, mood is aggravated . Disorganized. Slightly improving but not much. She is better in terms of compliant with medications. 01/27: mostly compliant with meds. improved from last week, more organized and less labile today. agreement reached on medications, reinstate risperidone as primary antipsychotic Tx, remove request for mood stabilizers, remove ativan. DC prolixin, begin taper of VPA, restart risperidone 2 BID, add thorazine 100 and valium 10 at HS to encourage sleep. awaiting med order. 01/28: last evening was pushing, attempting to kick and bite staff, shoulder- checked peer, exposing genitalia to 1:1 staff. took meds last night and this morning. court order received today, reviewed, medications adjusted to comply with order. reportedly more linear today, but pt declined to meet with MD after brief psychotic interaction with MD. 01/29: dysregulated, agitated behaviors continue last night. calmer days. refused VPA this morning. continue VPA taper, decrease from 500 BID to 250 TID as of today. increase HS seroquel from 300 mg to 400 mg as of tonight and HS valium from 10 mg to 15 mg as of tonight for sleep and sylwia. 01/30: same pattern of calm days through mid-afternoon, then decompensation. add third scheduled dosing of risperidone in the middle of the day, schedule valium in the morning and at 3 pm, otherwise continue current mgmt. increase HS seroquel if pt does not sleep more than several hours tonight. continue VPA taper tomorrow. 01/31: calm, morning. severe akathisia eves, unable to sleep or remain still. slept only 2.5 hours. due to 4 mg risperidone daily being inadequate to treat Sx and 6 mg causing severe akathisia, will DC risperidone in favor of a less potent antipsychotic, seroquel. schedule seroquel 100/100/500. taper VPA to 250 BID as of tomorrow. propranolol 20 TID started last night for akathisia, will continue for now. 02/01: no change - monitor akathisia decrease on new regimen Patient educated on: diagnosis and medication risk/benefits Reason for continued inpatient stay Substantial Risk for: rapid decompensation Time Spent With Patient Time: Total time managing care of this patient today _15___ minutes.
[2025-02-01 14:53] VITALS: BP 131/68; PULSE 104; RESP 16; O2SAT 98
[2025-02-01 21:25] VITALS: BP 129/75; PULSE 104; RESP 18; TEMP 36.8; O2SAT 95
[2025-02-01] MEDS: diazePAM 10 MG/2 ML CARTRIDGE 5 MG IM (21:54)
[2025-02-02 04:53] VITALS: BP 111/59
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
--- NOTE | 2025-02-02 07:41 | PC.NURSE ---
[place] stated that she would like her nicotine patch mg dosage lowered as she would like to taper off it completely
[2025-02-02 07:58] VITALS: BP 119/68; PULSE 93; RESP 16; TEMP 36.7; O2SAT 99
[2025-02-02 08:18] VITALS: BP 119/68; PULSE 70
[2025-02-02] MEDS: Nicotine 14 MG PATCH.TD24 TRANSDERMA (08:20)
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
[2025-02-02 15:05] VITALS: BP 124/61; PULSE 94
[2025-02-02] MEDS: diazePAM 10 MG/2 ML CARTRIDGE 5 MG IM (21:39)
[2025-02-02 21:45] VITALS: BP 117/61; PULSE 89; RESP 16; TEMP 36.6; O2SAT 98
[2025-02-03 07:05] VITALS: BP 139/63; PULSE 90; RESP 18; TEMP 36.4; O2SAT 97
[2025-02-03] MEDS: Nicotine 7 MG PATCH.TD24 TRANSDERMA (08:39)
[2025-02-03 08:44] VITALS: BP 139/63; PULSE 90
[2025-02-03 15:01] VITALS: BP 124/56; PULSE 88
--- NOTE | 2025-02-03 15:15 | HO.PSYCHPN ---
Subjective Subjective Date of Service: 02/03/25 Reason For Visit: Crisis Interim History: c/o sedation. MD agrees to decrease daytime regimen substantially and to continue VPA taper. fairly linear and logical, no bizarre statements or behaviors. per staff, denies anx/dep. no inappropriate behaviors. broad affect. pleasant. got IMs last night and valium PRN overnight. slept 6 hours. Mental Status Exam Mental Status Exam Narrative: Appearance: adequately dressed and groomed Behavior: pacing the [place], in room Speech: nml amount, nml loudness. nml latency. TP: organized TC: germane Mood: unknown Affect: calm AH/VH: none expressed Insight/judgment: improved Memory/cog: alert, improving. Diagnostics Vital Signs (24Hr): Vital Signs - 24 hr 02/02/25 21:45 02/03/25 07:05 02/03/25 08:44 Temperature 98 F 97.5 F Pulse Rate 89 90 90 Respiratory Rate 16 18 Blood Pressure 117/61 139/63 139/63 Pulse Oximetry 98 97 Oxygen Delivery Method Room Air Room Air 02/03/25 15:01 Temperature Pulse Rate 88 Respiratory Rate Blood Pressure 124/56 L Pulse Oximetry Oxygen Delivery Method BMI result Body Mass Index 21.7 Labs 01/09/25 16:36 01/09/25 16:36 Imaging Radiology Impressions: ITS Impressions Hand X-Ray 01/16/25 11:30 IMPRESSION: Unremarkable right hand Electronically signed by: Casa Rush MD 01/16/2025 11:46 AM EDT RP Hand X-Ray 01/29/25 07:30 IMPRESSION: Unremarkable examination of the right hand. Electronically signed by: Obdulio Tolbert MD 01/30/2025 07:56 AM EDT RP Medications Medications Current Medications Acetaminophen (Acetaminophen 325 Mg Tablet) 650 mg PO Q6H PRN PRN Reason: Headache/Pain, Scale 1-10 Last Admin: 02/02/25 06:34 Dose: 650 mg Al Hydroxide/Mg Hydroxide (Magnesium Hydrox/Alum Hydrox 30 Ml Oral.Susp) 30 ml PO Q6H PRN PRN Reason: Heartburn/Nausea Last Admin: 01/30/25 14:06 Dose: 30 ml Diazepam (Diazepam 5 Mg Tablet) 5 mg PO Q4H PRN PRN Reason: agitation Last Admin: 02/03/25 04:33 Dose: 5 mg Diazepam (Diazepam 5 Mg Tablet) 15 mg PO BEDTIME VERONICA Last Admin: 02/02/25 21:52 Dose: Not Given Diazepam (Diazepam 10 Mg/2 Ml Cartridge) 5 mg IM TID PRN PRN Reason: refusal of seroquel or valium Last Admin: 02/02/25 21:39 Dose: 5 mg Diazepam (Diazepam 2 Mg Tablet) 2 mg PO BID@0900,1500 [facility] Last Admin: 02/03/25 15:02 Dose: 2 mg Divalproex Sodium (Divalproex Sodium 250 Mg Tablet.Dr) 250 mg PO BEDTIME VERONICA Docusate Sodium (Docusate Sodium 100 Mg Capsule) 100 mg PO BID PRN PRN Reason: Constipation Last Admin: 01/30/25 20:10 Dose: 100 mg Haloperidol Lactate (Haloperidol Lactate 5 Mg/Ml Vial) 5 mg IM TID PRN PRN Reason: refusal of scheduled seroquel Last Admin: 02/02/25 21:47 Dose: 5 mg Hydrocortisone (Hydrocortisone 2.5 % Rectal Cr 30 Gm Tube) 1 appl MI DAILY PRN PRN Reason: hemrroids Last Admin: 01/26/25 14:57 Dose: 1 appl Magnesium Hydroxide (Milk Of Magnesia 30 Ml Oral.Susp) 30 ml PO DAILY PRN PRN Reason: Constipation Last Admin: 01/26/25 14:59 Dose: 30 ml Multivitamins/Vitamin C (Multivitamin Tablet) 1 tab PO DAILY VERONICA Last Admin: 02/03/25 08:43 Dose: 1 tab Nicotine (Nicotine 7 Mg Patch.Td24) 7 mg TRANSDERMA DAILY [facility] Last Admin: 02/03/25 08:39 Dose: 7 mg Nicotine Polacrilex (Nicotine Polacrilex 2 Mg Gum) 4 mg BUCCAL Q2H PRN PRN Reason: Nicotine Cravings Last Admin: 01/30/25 18:46 Dose: 4 mg Polyethylene Glycol (Polyethylene Glycol 3350 17 Gm Powd.Pack) 17 gm PO DAILY [facility] Last Admin: 02/03/25 08:46 Dose: Not Given Propranolol HCl (Propranolol Hcl 20 Mg Tablet) 20 mg PO TID [facility]; Protocol Last Admin: 02/03/25 15:01 Dose: 20 mg Quetiapine Fumarate (Quetiapine Fumarate 100 Mg Tablet) 500 mg PO BEDTIME [facility] Last Admin: 02/02/25 21:53 Dose: Not Given Quetiapine Fumarate (Quetiapine Fumarate 25 Mg Tablet) 75 mg PO BID@0900,1500 [facility] Last Admin: 02/03/25 15:02 Dose: 75 mg Allergies Allergies Allergy/AdvReac Type Severity Reaction Status Date / Time olanzapine (From Zyprexa) AdvReac Rash Verified 12/31/24 18:41 Assessment & Plan Assessment & Plan (1) Psychosis: Status: Acute Code(s): F29 - Unspecified psychosis not due to a substance or known physiological condition Plan Ms. Sheridan is a 34 year-old woman who presents with s/s of psychosis, disorganized, some degree of paranoia. She had similar episode back in 2020. 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 I do suspect that there may be underlying psychiatric disorder that is triggered by amphetamine use but not necessarily caused by it. Further evaluation to clarify dx is needed. We discussed inpt level of care. We also discussed restarting risperidone 1mg po BID. low dose clonazepam. continue clonidine. 1. IPLOC 2. start risperidone 1mg po BID. Clonazepam 0.5mg po BID. 01/05: Continue current regimen and plans. 01/06: slept only 2 hours, disorganized, decompensated behaviors. unable to interact cogently. refusing risperidone, will offer seroquel instead. possible bipolar diathesis, T/C mood stabilizer. delirium also a possibility, as the mental status change since admission appears to be striking. 01/07: took seroquel 200 last night, slept 5.5 hours. more organized, linear, able to engage today. continue current mgmt. 01/08: refused seroquel last NOC, slept only 30 minutes. agitated, bizarre, disorganized today. commitment paperwork filed. 01/09: refused meds yesterday but got IMs due to behaviors (outbursts, touching peers, yelling, banging doors, pushed her sitter, climbing on tables and chairs. threatening to stab self with pens). more linear and engageable today, once again the day after having takenm medication. agrees to continue to take seroquel 200 mg QHS. 01/10: took seroquel last NOC and slept 4 hours overnight, but bizarre today. less agitation and intrusiveness than yesterday, but still bizarre and fairly intrusive. pt appears willing to take risperidone, will DC seroquel and return to dosing of risperidone 2 mg BID. took first dose this afternoon. court next monday. 01/11 very paranoid, fearful, taking medications 01/12 continue tx. 01/13: appears a bit more organized today than when not taking medications, although slow and processing poorly. declines to sign CV. commitment hearing tomorrow. 01/14: hearing continued until 01/24 for SINDY. add klonopin 0.5 BID ODT, change risperidone formulation to liquid (pt has been inducing vomiting repeatedly with toothbrush). hold toothbrush unless actively brushing teeth. continues interactive to some extent with MD today, but has been grabbing badges, touching others, and tried to vault into the nursing station in the past 24H. 01/15: IM medication after threatening to punch waitstaff with intrusive and aggressive behaviors toward peers. pt did not take klonopin as ordered yesterday. DC klonopin and start VPA 500 BID. per staff, running. tried to make herself vomit after taking PRN. labile. ate her feces in the shower and tried to feed it to her 1:1. crawling under tables. tried to jump into nurses station x2. took her shirt off and swinging it around. did not sleep at all. slept at 7:30am. 01/16: refusing VPA, taking risperidone. napped after IMs yesterday. has been bizarre and labile since. slept only 2 hours overnight. continue current mgmt. 01/17: agitated, bizarre, and aggressive behaviors yesterday (punching and kicking beard, stripping off in milieu, attempting to intimidate staff, grabbing stress balls out of staff's hands). did take VPA this morning on its being offered a second time. more calm today. taking risperidone. 01/18: intermittently refusing VPA, seems to be taking risperidone. asks MD if he is alive, then proposes elbow bump. accusing staff of stealing her things (phone), calling mother and medical insurance coder in the middle of the night. slept less than 4 hours. 01/19: more lucid today. concerned about risperidone weight gain. agrees to DC risperidone and try prolixin instead, starting at 2.5 BID. 01/20: very disorganized, bizarre, psychotic today. likely due to equivalent dosing of prolixin being given much lower than prior risperidone. as pt seems to be tolerating prolixin without issues, increase prolixin dosing from 2.5 BID to 5 BID. otherwise continue current mgmt. 01/21: less bizarre and disorganized, but still quite ill. variably compliant with medications. c/o leg pain, lowering self to floor; started cogentin 0.5 BID due to concern for dystonia. c/o nightmares, h/o prazosin with good effect. add prazosin 1 mg QHS as of tonight. 01/22: Patients states that she is good. She is scared of [place] herpes after having sex. She refused to participate in an interview with this provider, and walked away stating i don't need a provider. She was observed by this provider, pacing the [place]. Continue current treatment regimen. 01/23: disorganized and dangerous behaviors. voluntarily took IMs. court tomorrow. 01/24: remains disorganized. ran into staff member yesterday, postured and threatened other staff afterward. slept about 6.[address] this afternoon. 01/25/25: Staff 5 6 hours with broken sleep. Compliant with medication with lots of encouragement from yesterday, refused her vitamins in the morning. CT scan was negative, she fell early in the morning, witness her head hit the wall the trying to put her pants on. Slightly improved in mood with medication compliant. VPA level is 52,1 low side. However patient not consistently take it every day. We will recheck. He is on section 8. Pending Wei's order. Less irritable, less racing. 01/26/25: Mostly compliant with medication, to 250/750 mg of Depakote scheduled at bedtime. Labile, restless, poor boundaries, sexually inappropriate behavior, mood is aggravated . Disorganized. Slightly improving but not much. She is better in terms of compliant with medications. 01/27: mostly compliant with meds. improved from last week, more organized and less labile today. agreement reached on medications, reinstate risperidone as primary antipsychotic Tx, remove request for mood stabilizers, remove ativan. DC prolixin, begin taper of VPA, restart risperidone 2 BID, add thorazine 100 and valium 10 at HS to encourage sleep. awaiting med order. 01/28: last evening was pushing, attempting to kick and bite staff, shoulder-checked peer, exposing genitalia to 1:1 staff. took meds last night and this morning. court order received today, reviewed, medications adjusted to comply with order. reportedly more linear today, but pt declined to meet with MD after brief psychotic interaction with MD. 01/29: dysregulated, agitated behaviors continue last night. calmer days. refused VPA this morning. continue VPA taper, decrease from 500 BID to 250 TID as of today. increase HS seroquel from 300 mg to 400 mg as of tonight and HS valium from 10 mg to 15 mg as of tonight for sleep and sylwia. 01/30: same pattern of calm days through mid-afternoon, then decompensation. add third scheduled dosing of risperidone in the middle of the day, schedule valium in the morning and at 3 pm, otherwise continue current mgmt. increase HS seroquel if pt does not sleep more than several hours tonight. continue VPA taper tomorrow. 01/31: calm, morning. severe akathisia eves, unable to sleep or remain still. slept only 2.5 hours. due to 4 mg risperidone daily being inadequate to treat Sx and 6 mg causing severe akathisia, will DC risperidone in favor of a less potent antipsychotic, seroquel. schedule seroquel 100/100/500. taper VPA to 250 BID as of tomorrow. propranolol 20 TID started last night for akathisia, will continue for now. 02/01: no change - monitor akathisia decrease on new regimen 02/02: nicotine patch taper to 7 mg; seems to be doing better with switch to Seroquel and augmentation with Propranolol; primary team may f/u with further discussion of behavioral plan 02/03: much improved from last week. calm, linear, logical, topical. slept 6 hours each the last 3 nights. c/o sedation. decrease daytime valium from 5 BID to 2 BID. decrease daytime seroquel from 100 BID to 75 BID. taper VPA from 250 BID to 250 QHS. Reason for continued inpatient stay Substantial Risk for: inability to function and rapid decompensation Time Spent With Patient Time: Total time managing care of this patient today _25___ minutes.
[2025-02-03 20:00] VITALS: BP 112/57; PULSE 88; RESP 14; TEMP 36.4; O2SAT 96
[2025-02-03] MEDS: diazePAM 10 MG/2 ML CARTRIDGE 5 MG IM (20:20)
--- NOTE | 2025-02-04 03:23 | PC.NURSE ---
Patient reported some restlessness and mild agitation, was given Valium PO prn.
[2025-02-04 07:29] VITALS: BP 129/82; PULSE 100; RESP 20; TEMP 35.7; O2SAT 98
[2025-02-04 08:32] VITALS: BP 129/82; PULSE 100
[2025-02-04] MEDS: Nicotine 7 MG PATCH.TD24 TRANSDERMA (09:30)
[2025-02-04 14:56] VITALS: BP 129/65; PULSE 99
--- NOTE | 2025-02-04 15:35 | P.PNPSI_ITS ---
Subjective Subjective Date of Service: 02/04/25 Reason For Visit: Crisis Interim History: continues to feel overmedicated days. agreeable to decrease daytime seroquel dosing to 50 mg each from 75 mg each. also agreeable to DC VPA. per staff, denies dep/anx. taking meds. attending groups. improved affect. periods of irritability. refused HS meds, got IMs instead. slept 7 hours. Mental Status Exam Mental Status Exam Narrative: Appearance: adequately dressed and groomed Behavior: no PMA/PMR Speech: nml amount, nml loudness. nml latency. TP: organized TC: germane Mood: unknown Affect: calm AH/VH: none expressed Insight/judgment: improved Memory/cog: alert, improving. Diagnostics Vital Signs (24Hr): Vital Signs - 24 hr 02/03/25 20:00 02/04/25 07:29 02/04/25 08:32 Temperature 97.5 F 96.2 F L Pulse Rate 88 100 100 Respiratory Rate 14 20 Blood Pressure 112/57 L 129/82 129/82 Pulse Oximetry 96 98 Oxygen Delivery Method Room Air Room Air 02/04/25 14:56 Temperature Pulse Rate 99 Respiratory Rate Blood Pressure 129/65 Pulse Oximetry Oxygen Delivery Method BMI result Body Mass Index 21.7 Labs 01/09/25 16:36 01/09/25 16:36 Imaging Radiology Impressions: ITS Impressions Hand X-Ray 01/16/25 11:30 IMPRESSION: Unremarkable right hand Electronically signed by: Casa Rush MD 01/16/2025 11:46 AM EDT RP Hand X-Ray 01/29/25 07:30 IMPRESSION: Unremarkable examination of the right hand. Electronically signed by: Obdulio Tolbert MD 01/30/2025 07:56 AM EDT RP Medications Medications Current Medications Acetaminophen (Acetaminophen 325 Mg Tablet) 650 mg PO Q6H PRN PRN Reason: Headache/Pain, Scale 1-10 Last Admin: 02/04/25 05:21 Dose: 650 mg Al Hydroxide/Mg Hydroxide (Magnesium Hydrox/Alum Hydrox 30 Ml Oral.Susp) 30 ml PO Q6H PRN PRN Reason: Heartburn/Nausea Last Admin: 01/30/25 14:06 Dose: 30 ml Diazepam (Diazepam 5 Mg Tablet) 5 mg PO Q4H PRN PRN Reason: agitation Last Admin: 02/04/25 03:22 Dose: 5 mg Diazepam (Diazepam 5 Mg Tablet) 15 mg PO BEDTIME [facility] Last Admin: 02/03/25 20:28 Dose: Not Given Diazepam (Diazepam 10 Mg/2 Ml Cartridge) 5 mg IM TID PRN PRN Reason: refusal of seroquel or valium Last Admin: 02/03/25 20:20 Dose: 5 mg Diazepam (Diazepam 2 Mg Tablet) 2 mg PO BID@0900,1500 [facility] Last Admin: 02/04/25 14:57 Dose: 2 mg Docusate Sodium (Docusate Sodium 100 Mg Capsule) 100 mg PO BID PRN PRN Reason: Constipation Last Admin: 01/30/25 20:10 Dose: 100 mg Haloperidol Lactate (Haloperidol Lactate 5 Mg/Ml Vial) 5 mg IM TID PRN PRN Reason: refusal of scheduled seroquel Last Admin: 02/03/25 20:20 Dose: 5 mg Hydrocortisone (Hydrocortisone 2.5 % Rectal Cr 30 Gm Tube) 1 appl VT DAILY PRN PRN Reason: hemrroids Last Admin: 01/26/25 14:57 Dose: 1 appl Magnesium Hydroxide (Milk Of Magnesia 30 Ml Oral.Susp) 30 ml PO DAILY PRN PRN Reason: Constipation Last Admin: 01/26/25 14:59 Dose: 30 ml Multivitamins/Vitamin C (Multivitamin Tablet) 1 tab PO DAILY [facility] Last Admin: 02/04/25 08:32 Dose: 1 tab Nicotine (Nicotine 7 Mg Patch.Td24) 7 mg TRANSDERMA DAILY [facility] Last Admin: 02/04/25 09:30 Dose: 7 mg Nicotine Polacrilex (Nicotine Polacrilex 2 Mg Gum) 4 mg BUCCAL Q2H PRN PRN Reason: Nicotine Cravings Last Admin: 01/30/25 18:46 Dose: 4 mg Polyethylene Glycol (Polyethylene Glycol 3350 17 Gm Powd.Pack) 17 gm PO DAILY [facility] Last Admin: 02/04/25 08:35 Dose: Not Given Propranolol HCl (Propranolol Hcl 20 Mg Tablet) 20 mg PO TID [facility]; Protocol Last Admin: 02/04/25 14:56 Dose: 20 mg Quetiapine Fumarate (Quetiapine Fumarate 50 Mg Tablet) 50 mg PO BID@0900,1500 [facility] Last Admin: 02/04/25 14:56 Dose: 50 mg Quetiapine Fumarate (Quetiapine Fumarate 400 Mg Tablet) 400 mg PO BEDTIME [facility] Allergies Allergies Allergy/AdvReac Type Severity Reaction Status Date / Time olanzapine (From Zyprexa) AdvReac Rash Verified 12/31/24 18:41 Assessment & Plan Assessment & Plan (1) Psychosis: Status: Acute Code(s): F29 - Unspecified psychosis not due to a substance or known physiological condition Plan Ms. Sheridan is a 34 year-old woman who presents with s/s of psychosis, disorganized, some degree of paranoia. She had similar episode back in 2020. 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 I do suspect that there may be underlying psychiatric disorder that is triggered by amphetamine use but not necessarily caused by it. Further evaluation to clarify dx is needed. We discussed inpt level of care. We also discussed restarting risperidone 1mg po BID. low dose clonazepam. continue clonidine. 1. IPLOC 2. start risperidone 1mg po BID. Clonazepam 0.5mg po BID. 01/05: Continue current regimen and plans. 01/06: slept only 2 hours, disorganized, decompensated behaviors. unable to interact cogently. refusing risperidone, will offer seroquel instead. possible bipolar diathesis, T/C mood stabilizer. delirium also a possibility, as the mental status change since admission appears to be striking. 01/07: took seroquel 200 last night, slept 5.5 hours. more organized, linear, able to engage today. continue current mgmt. 01/08: refused seroquel last NOC, slept only 30 minutes. agitated, bizarre, disorganized today. commitment paperwork filed. 01/09: refused meds yesterday but got IMs due to behaviors (outbursts, touching peers, yelling, banging doors, pushed her sitter, climbing on tables and chairs. threatening to stab self with pens). more linear and engageable today, once again the day after having takenm medication. agrees to continue to take seroquel 200 mg QHS. 01/10: took seroquel last NOC and slept 4 hours overnight, but bizarre today. less agitation and intrusiveness than yesterday, but still bizarre and fairly intrusive. pt appears willing to take risperidone, will DC seroquel and return to dosing of risperidone 2 mg BID. took first dose this afternoon. court next monday. 01/11 very paranoid, fearful, taking medications 01/12 continue tx. 01/13: appears a bit more organized today than when not taking medications, although slow and processing poorly. declines to sign CV. commitment hearing tomorrow. 01/14: hearing continued until 01/24 for SINDY. add klonopin 0.5 BID ODT, change risperidone formulation to liquid (pt has been inducing vomiting repeatedly with toothbrush). hold toothbrush unless actively brushing teeth. continues interactive to some extent with MD today, but has been grabbing badges, touching others, and tried to vault into the nursing station in the past 24H. 01/15: IM medication after threatening to punch staff development nurse with intrusive and aggressive behaviors toward peers. pt did not take klonopin as ordered yesterday. DC klonopin and start VPA 500 BID. per staff, running. tried to make herself vomit after taking PRN. labile. ate her feces in the shower and tried to feed it to her 1:1. crawling under tables. tried to jump into nurses station x2. took her shirt off and swinging it around. did not sleep at all. slept at 7:30am. 01/16: refusing VPA, taking risperidone. napped after IMs yesterday. has been bizarre and labile since. slept only 2 hours overnight. continue current mgmt. 01/17: agitated, bizarre, and aggressive behaviors yesterday (punching and kicking beard, stripping off in milieu, attempting to intimidate staff, grabbing stress balls out of staff's hands). did take VPA this morning on its being offered a second time. more calm today. taking risperidone. 01/18: intermittently refusing VPA, seems to be taking risperidone. asks MD if he is alive, then proposes elbow bump. accusing staff of stealing her things (phone), calling mother and sound controller in the middle of the night. slept less than 4 hours. 01/19: more lucid today. concerned about risperidone weight gain. agrees to DC risperidone and try prolixin instead, starting at 2.5 BID. 01/20: very disorganized, bizarre, psychotic today. likely due to equivalent dosing of prolixin being given much lower than prior risperidone. as pt seems to be tolerating prolixin without issues, increase prolixin dosing from 2.5 BID to 5 BID. otherwise continue current mgmt. 01/21: less bizarre and disorganized, but still quite ill. variably compliant with medications. c/o leg pain, lowering self to floor; started cogentin 0.5 BID due to concern for dystonia. c/o nightmares, h/o prazosin with good effect. add prazosin 1 mg QHS as of tonight. 01/22: Patients states that she is good. She is scared of [place] herpes after having sex. She refused to participate in an interview with this provider, and walked away stating i don't need a provider. She was observed by this provider, pacing the [place]. Continue current treatment regimen. 01/23: disorganized and dangerous behaviors. voluntarily took [employer]. court tomorrow. 01/24: remains disorganized. ran into staff member yesterday, postured and threatened other staff afterward. slept about 6.[address] this afternoon. 01/25/25: Staff 5 6 hours with broken sleep. Compliant with medication with lots of encouragement from yesterday, refused her vitamins in the morning. CT scan was negative, she fell early in the morning, witness her head hit the wall the trying to put her pants on. Slightly improved in mood with medication compliant. VPA level is 52,1 low side. However patient not consistently take it every day. We will recheck. He is on section 8. Pending Wei's order. Less irritable, less racing. 01/26/25: Mostly compliant with medication, to 250/750 mg of Depakote scheduled at bedtime. Labile, restless, poor boundaries, sexually inappropriate behavior, mood is aggravated . Disorganized. Slightly improving but not much. She is better in terms of compliant with medications. 01/27: mostly compliant with meds. improved from last week, more organized and less labile today. agreement reached on medications, reinstate risperidone as primary antipsychotic Tx, remove request for mood stabilizers, remove ativan. DC prolixin, begin taper of VPA, restart risperidone 2 BID, add thorazine 100 and valium 10 at HS to encourage sleep. awaiting med order. 01/28: last evening was pushing, attempting to kick and bite staff, shoulder- checked peer, exposing genitalia to 1:1 staff. took meds last night and this morning. court order received today, reviewed, medications adjusted to comply with order. reportedly more linear today, but pt declined to meet with MD after brief psychotic interaction with MD. 01/29: dysregulated, agitated behaviors continue last night. calmer days. refused VPA this morning. continue VPA taper, decrease from 500 BID to 250 TID as of today. increase HS seroquel from 300 mg to 400 mg as of tonight and HS valium from 10 mg to 15 mg as of tonight for sleep and sylwia. 01/30: same pattern of calm days through mid-afternoon, then decompensation. add third scheduled dosing of risperidone in the middle of the day, schedule valium in the morning and at 3 pm, otherwise continue current mgmt. increase HS seroquel if pt does not sleep more than several hours tonight. continue VPA taper tomorrow. 01/31: calm, morning. severe akathisia eves, unable to sleep or remain still. slept only 2.5 hours. due to 4 mg risperidone daily being inadequate to treat Sx and 6 mg causing severe akathisia, will DC risperidone in favor of a less potent antipsychotic, seroquel. schedule seroquel 100/100/500. taper VPA to 250 BID as of tomorrow. propranolol 20 TID started last night for akathisia, will continue for now. 02/01: no change - monitor akathisia decrease on new regimen 02/02: nicotine patch taper to 7 mg; seems to be doing better with switch to Seroquel and augmentation with Propranolol; primary team may f/u with further discussion of behavioral plan 02/03: much improved from last week. calm, linear, logical, topical. slept 6 hours each the last 3 nights. c/o sedation. decrease daytime valium from 5 BID to 2 BID. decrease daytime seroquel from 100 BID to 75 BID. taper VPA from 250 BID to 250 QHS. 02/04: remains much improved. no overt MSE abnormalities. c/o sedation, decrease seroquel from 75 BID to 50 BID and from 500 QHS to 400 QHS. DC VPA entirely. otherwise continue current mgmt. Reason for continued inpatient stay Substantial Risk for: inability to function and rapid decompensation Time Spent With Patient Time: Total time managing care of this patient today __25__ minutes.
[2025-02-04 20:00] VITALS: BP 128/74; PULSE 86; RESP 14; TEMP 36.4; O2SAT 97
[2025-02-04] MEDS: diazePAM 10 MG/2 ML CARTRIDGE 5 MG IM (20:13)
[2025-02-05 07:41] VITALS: BP 118/57; PULSE 98; RESP 16; TEMP 36.6; O2SAT 97
[2025-02-05] MEDS: Nicotine 7 MG PATCH.TD24 TRANSDERMA (08:21)
--- NOTE | 2025-02-05 11:36 | HO.PSYCHPN ---
Subjective Subjective Date of Service: 02/05/25 Reason For Visit: Crisis Interim History: more irritable, erratic, reactive today. demanding to know when she is discharging, why she is on so many meds, etc. per staff, affect improved. taking meds. feeling better. visible. refused PO meds last night, got IMs. slept 6 hours. woke up sweating and c/o nightmares. Mental Status Exam Mental Status Exam Narrative: Appearance: adequately dressed and groomed Behavior: more pacing, erratic today Speech: incr amount and rate, nml loudness. decr latency. TP: less organized. rigid, perseverative. TC: stopping medication and discharging Mood: unknown Affect: agitated, irritable, labile AH/VH: none expressed Insight/judgment: impaired Memory/cog: alert, improving. Diagnostics Vital Signs (24Hr): Vital Signs - 24 hr 02/04/25 14:56 02/04/25 20:00 02/05/25 07:41 Temperature 97.6 F 97.9 F Pulse Rate 99 86 98 Respiratory Rate 14 16 Blood Pressure 129/65 128/74 118/57 L Pulse Oximetry 97 97 Oxygen Delivery Method Room Air Room Air BMI result Body Mass Index 21.7 Labs 01/09/25 16:36 01/09/25 16:36 Imaging Radiology Impressions: ITS Impressions Hand X-Ray 01/16/25 11:30 IMPRESSION: Unremarkable right hand Electronically signed by: Casa Rush MD 01/16/2025 11:46 AM EDT RP Hand X-Ray 01/29/25 07:30 IMPRESSION: Unremarkable examination of the right hand. Electronically signed by: Obdulio Tolbert MD 01/30/2025 07:56 AM EDT RP Medications Medications Current Medications Acetaminophen (Acetaminophen 325 Mg Tablet) 650 mg PO Q6H PRN PRN Reason: Headache/Pain, Scale 1-10 Last Admin: 02/04/25 21:13 Dose: 650 mg Al Hydroxide/Mg Hydroxide (Magnesium Hydrox/Alum Hydrox 30 Ml Oral.Susp) 30 ml PO Q6H PRN PRN Reason: Heartburn/Nausea Last Admin: 01/30/25 14:06 Dose: 30 ml Diazepam (Diazepam 5 Mg Tablet) 5 mg PO Q4H PRN PRN Reason: agitation Last Admin: 02/05/25 04:10 Dose: 5 mg Diazepam (Diazepam 5 Mg Tablet) 15 mg PO BEDTIME [facility] Last Admin: 02/04/25 23:33 Dose: Not Given Diazepam (Diazepam 10 Mg/2 Ml Cartridge) 5 mg IM TID PRN PRN Reason: refusal of seroquel or valium Last Admin: 02/04/25 20:13 Dose: 5 mg Diazepam (Diazepam 2 Mg Tablet) 2 mg PO BID@0900,1500 [facility] Last Admin: 02/05/25 08:22 Dose: 2 mg Docusate Sodium (Docusate Sodium 100 Mg Capsule) 100 mg PO BID PRN PRN Reason: Constipation Last Admin: 01/30/25 20:10 Dose: 100 mg Haloperidol Lactate (Haloperidol Lactate 5 Mg/Ml Vial) 5 mg IM TID PRN PRN Reason: refusal of scheduled seroquel Last Admin: 02/04/25 20:14 Dose: 5 mg Hydrocortisone (Hydrocortisone 2.5 % Rectal Cr 30 Gm Tube) 1 appl [place] DAILY PRN PRN Reason: hemrroids Last Admin: 01/26/25 14:57 Dose: 1 appl Magnesium Hydroxide (Milk Of Magnesia 30 Ml Oral.Susp) 30 ml PO DAILY PRN PRN Reason: Constipation Last Admin: 01/26/25 14:59 Dose: 30 ml Multivitamins/Vitamin C (Multivitamin Tablet) 1 tab PO DAILY [facility] Last Admin: 02/05/25 08:23 Dose: 1 tab Nicotine (Nicotine 7 Mg Patch.Td24) 7 mg TRANSDERMA DAILY [facility] Last Admin: 02/05/25 08:21 Dose: 7 mg Nicotine Polacrilex (Nicotine Polacrilex 2 Mg Gum) 4 mg BUCCAL Q2H PRN PRN Reason: Nicotine Cravings Last Admin: 01/30/25 18:46 Dose: 4 mg Polyethylene Glycol (Polyethylene Glycol 3350 17 Gm Powd.Pack) 17 gm PO DAILY [facility] Last Admin: 02/05/25 08:26 Dose: Not Given Propranolol HCl (Propranolol Hcl 20 Mg Tablet) 20 mg PO TID [facility]; Protocol Last Admin: 02/05/25 08:23 Dose: 20 mg Quetiapine Fumarate (Quetiapine Fumarate 50 Mg Tablet) 50 mg PO BID@0900,1500 [facility] Last Admin: 02/05/25 08:22 Dose: 50 mg Quetiapine Fumarate (Quetiapine Fumarate 400 Mg Tablet) 400 mg PO BEDTIME [facility] Last Admin: 02/04/25 23:33 Dose: Not Given Allergies Allergies Allergy/AdvReac Type Severity Reaction Status Date / Time olanzapine (From Zyprexa) AdvReac Rash Verified 12/31/24 18:41 Assessment & Plan Assessment & Plan (1) Psychosis: Status: Acute Code(s): F29 - Unspecified psychosis not due to a substance or known physiological condition Plan Ms. Sheridan is a 34 year-old woman who presents with s/s of psychosis, disorganized, some degree of paranoia. She had similar episode back in 2020. 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 I do suspect that there may be underlying psychiatric disorder that is triggered by amphetamine use but not necessarily caused by it. Further evaluation to clarify dx is needed. We discussed inpt level of care. We also discussed restarting risperidone 1mg po BID. low dose clonazepam. continue clonidine. 1. IPLOC 2. start risperidone 1mg po BID. Clonazepam 0.5mg po BID. 01/05: Continue current regimen and plans. 01/06: slept only 2 hours, disorganized, decompensated behaviors. unable to interact cogently. refusing risperidone, will offer seroquel instead. possible bipolar diathesis, T/C mood stabilizer. delirium also a possibility, as the mental status change since admission appears to be striking. 01/07: took seroquel 200 last night, slept 5.5 hours. more organized, linear, able to engage today. continue current mgmt. 01/08: refused seroquel last NOC, slept only 30 minutes. agitated, bizarre, disorganized today. commitment paperwork filed. 01/09: refused meds yesterday but got IMs due to behaviors (outbursts, touching peers, yelling, banging doors, pushed her sitter, climbing on tables and chairs. threatening to stab self with pens). more linear and engageable today, once again the day after having takenm medication. agrees to continue to take seroquel 200 mg QHS. 01/10: took seroquel last NOC and slept 4 hours overnight, but bizarre today. less agitation and intrusiveness than yesterday, but still bizarre and fairly intrusive. pt appears willing to take risperidone, will DC seroquel and return to dosing of risperidone 2 mg BID. took first dose this afternoon. court next monday. 01/11 very paranoid, fearful, taking medications 01/12 continue tx. 01/13: appears a bit more organized today than when not taking medications, although slow and processing poorly. declines to sign CV. commitment hearing tomorrow. 01/14: hearing continued until 01/24 for SINDY. add klonopin 0.5 BID ODT, change risperidone formulation to liquid (pt has been inducing vomiting repeatedly with toothbrush). hold toothbrush unless actively brushing teeth. continues interactive to some extent with MD today, but has been grabbing badges, touching others, and tried to vault into the nursing station in the past 24H. 01/15: IM medication after threatening to punch nurse staff with intrusive and aggressive behaviors toward peers. pt did not take klonopin as ordered yesterday. DC klonopin and start VPA 500 BID. per staff, running. tried to make herself vomit after taking PRN. labile. ate her feces in the shower and tried to feed it to her 1:1. crawling under tables. tried to jump into nurses station x2. took her shirt off and swinging it around. did not sleep at all. slept at 7:30am. 01/16: refusing VPA, taking risperidone. napped after IMs yesterday. has been bizarre and labile since. slept only 2 hours overnight. continue current mgmt. 01/17: agitated, bizarre, and aggressive behaviors yesterday (punching and kicking beard, stripping off in milieu, attempting to intimidate staff, grabbing stress balls out of staff's hands). did take VPA this morning on its being offered a second time. more calm today. taking risperidone. 01/18: intermittently refusing VPA, seems to be taking risperidone. asks MD if he is alive, then proposes elbow bump. accusing staff of stealing her things (phone), calling mother and vp in the middle of the night. slept less than 4 hours. 01/19: more lucid today. concerned about risperidone weight gain. agrees to DC risperidone and try prolixin instead, starting at 2.5 BID. 01/20: very disorganized, bizarre, psychotic today. likely due to equivalent dosing of prolixin being given much lower than prior risperidone. as pt seems to be tolerating prolixin without issues, increase prolixin dosing from 2.5 BID to 5 BID. otherwise continue current mgmt. 01/21: less bizarre and disorganized, but still quite ill. variably compliant with medications. c/o leg pain, lowering self to floor; started cogentin 0.5 BID due to concern for dystonia. c/o nightmares, h/o prazosin with good effect. add prazosin 1 mg QHS as of tonight. 01/22: Patients states that she is good. She is scared of [place] herpes after having sex. She refused to participate in an interview with this provider, and walked away stating i don't need a provider. She was observed by this provider, pacing the [place]. Continue current treatment regimen. 01/23: disorganized and dangerous behaviors. voluntarily took IMs. court tomorrow. 01/24: remains disorganized. ran into staff member yesterday, postured and threatened other staff afterward. slept about 6.[address] this afternoon. 01/25/25: Staff 5 6 hours with broken sleep. Compliant with medication with lots of encouragement from yesterday, refused her vitamins in the morning. CT scan was negative, she fell early in the morning, witness her head hit the wall the trying to put her pants on. Slightly improved in mood with medication compliant. VPA level is 52,1 low side. However patient not consistently take it every day. We will recheck. He is on section 8. Pending Wei's order. Less irritable, less racing. 01/26/25: Mostly compliant with medication, to 250/750 mg of Depakote scheduled at bedtime. Labile, restless, poor boundaries, sexually inappropriate behavior, mood is aggravated . Disorganized. Slightly improving but not much. She is better in terms of compliant with medications. 01/27: mostly compliant with meds. improved from last week, more organized and less labile today. agreement reached on medications, reinstate risperidone as primary antipsychotic Tx, remove request for mood stabilizers, remove ativan. DC prolixin, begin taper of VPA, restart risperidone 2 BID, add thorazine 100 and valium 10 at HS to encourage sleep. awaiting med order. 01/28: last evening was pushing, attempting to kick and bite staff, shoulder-checked peer, exposing genitalia to 1:1 staff. took meds last night and this morning. court order received today, reviewed, medications adjusted to comply with order. reportedly more linear today, but pt declined to meet with MD after brief psychotic interaction with MD. 01/29: dysregulated, agitated behaviors continue last night. calmer days. refused VPA this morning. continue VPA taper, decrease from 500 BID to 250 TID as of today. increase HS seroquel from 300 mg to 400 mg as of tonight and HS valium from 10 mg to 15 mg as of tonight for sleep and sylwia. 01/30: same pattern of calm days through mid-afternoon, then decompensation. add third scheduled dosing of risperidone in the middle of the day, schedule valium in the morning and at 3 pm, otherwise continue current mgmt. increase HS seroquel if pt does not sleep more than several hours tonight. continue VPA taper tomorrow. 01/31: calm, morning. severe akathisia eves, unable to sleep or remain still. slept only 2.5 hours. due to 4 mg risperidone daily being inadequate to treat Sx and 6 mg causing severe akathisia, will DC risperidone in favor of a less potent antipsychotic, seroquel. schedule seroquel 100/100/500. taper VPA to 250 BID as of tomorrow. propranolol 20 TID started last night for akathisia, will continue for now. 02/01: no change - monitor akathisia decrease on new regimen 02/02: nicotine patch taper to 7 mg; seems to be doing better with switch to Seroquel and augmentation with Propranolol; primary team may f/u with further discussion of behavioral plan 02/03: much improved from last week. calm, linear, logical, topical. slept 6 hours each the last 3 nights. c/o sedation. decrease daytime valium from 5 BID to 2 BID. decrease daytime seroquel from 100 BID to 75 BID. taper VPA from 250 BID to 250 QHS. 02/04: remains much improved. no overt MSE abnormalities. c/o sedation, decrease seroquel from 75 BID to 50 BID and from 500 QHS to 400 QHS. DC VPA entirely. otherwise continue current mgmt. 02/05: backsliding today. irritable, erratic, more disorganized, labile. stating her intent to stop taking medications, demanding discharge. continue current mgmt. Reason for continued inpatient stay Substantial Risk for: harm to self, harm to others, inability to function and rapid decompensation Time Spent With Patient Time: Total time managing care of this patient today __35__ minutes.
[2025-02-05] MEDS: Artificial Tears 15 ML DROPS 2 DROP EYE-BOTH (15:54)
[2025-02-05 19:59] VITALS: BP 162/70; PULSE 96; RESP 16; TEMP 36.8; O2SAT 97
[2025-02-06 07:00] VITALS: BMI 22.7
[2025-02-06 07:32] VITALS: BP 109/56; PULSE 90; RESP 20; TEMP 36.3; O2SAT 99
[2025-02-06] MEDS: Artificial Tears 15 ML DROPS 2 DROP EYE-BOTH (09:24)
[2025-02-06 09:25] VITALS: BP 109/56; PULSE 90
[2025-02-06] MEDS: Nicotine 7 MG PATCH.TD24 TRANSDERMA (09:26)
--- NOTE | 2025-02-06 13:00 | HO.PSYCHPN ---
Subjective Subjective Date of Service: 02/06/25 Reason For Visit: Crisis Interim History: very goal-oriented, logical, in better control today. apologized for her mood yesterday. lengthy discussion re treatment approach, Dx. pt expresses interest in being off of addicting medications and on proper mood stabilizers. agrees to DC daytime valium, restart prazosin for sleep, and decrease propranolol to 10 TID for now. per staff, anxious, aggressive yesterday. paranoid. c/o dry eyes. slept 8+ hours. Mental Status Exam Mental Status Exam Narrative: Appearance: adequately dressed and groomed Behavior: no PMA/PMR Speech: incr amount, nml loudness. decr latency. TP: organized TC: germane Mood: unknown Affect: calm AH/VH: none expressed Insight/judgment: improved Memory/cog: alert, improving. Diagnostics Vital Signs (24Hr): Vital Signs - 24 hr 02/05/25 19:59 02/06/25 07:32 02/06/25 09:25 Temperature 98.2 F 97.3 F Pulse Rate 96 90 90 Respiratory Rate 16 20 Blood Pressure 162/70 H 109/56 L 109/56 L Pulse Oximetry 97 99 Oxygen Delivery Method Room Air Room Air BMI result Body Mass Index 21.7 Labs 01/09/25 16:36 01/09/25 16:36 Imaging Radiology Impressions: ITS Impressions Hand X-Ray 01/16/25 11:30 IMPRESSION: Unremarkable right hand Electronically signed by: Casa Rush MD 01/16/2025 11:46 AM EDT RP Hand X-Ray 01/29/25 07:30 IMPRESSION: Unremarkable examination of the right hand. Electronically signed by: Obdulio Tolbert MD 01/30/2025 07:56 AM EDT RP Medications Medications Current Medications Acetaminophen (Acetaminophen 325 Mg Tablet) 650 mg PO Q6H PRN PRN Reason: Headache/Pain, Scale 1-10 Last Admin: 02/04/25 21:13 Dose: 650 mg Al Hydroxide/Mg Hydroxide (Magnesium Hydrox/Alum Hydrox 30 Ml Oral.Susp) 30 ml PO Q6H PRN PRN Reason: Heartburn/Nausea Last Admin: 01/30/25 14:06 Dose: 30 ml Artificial Tears (Artificial Tears 15 Ml Drops) 2 drop EYE-BOTH Q4H PRN PRN Reason: Dry Eyes Last Admin: 02/06/25 09:24 Dose: 2 drop Diazepam (Diazepam 5 Mg Tablet) 5 mg PO Q4H PRN PRN Reason: agitation Last Admin: 02/05/25 04:10 Dose: 5 mg Diazepam (Diazepam 5 Mg Tablet) 15 mg PO BEDTIME VERONICA Last Admin: 02/05/25 20:42 Dose: 15 mg Diazepam (Diazepam 10 Mg/2 Ml Cartridge) 5 mg IM TID PRN PRN Reason: refusal of seroquel or valium Last Admin: 02/04/25 20:13 Dose: 5 mg Docusate Sodium (Docusate Sodium 100 Mg Capsule) 100 mg PO BID PRN PRN Reason: Constipation Last Admin: 01/30/25 20:10 Dose: 100 mg Haloperidol Lactate (Haloperidol Lactate 5 Mg/Ml Vial) 5 mg IM TID PRN PRN Reason: refusal of scheduled seroquel Last Admin: 02/04/25 20:14 Dose: 5 mg Hydrocortisone (Hydrocortisone 2.5 % Rectal Cr 30 Gm Tube) 1 appl VT DAILY PRN PRN Reason: hemrroids Last Admin: 01/26/25 14:57 Dose: 1 appl Magnesium Hydroxide (Milk Of Magnesia 30 Ml Oral.Susp) 30 ml PO DAILY PRN PRN Reason: Constipation Last Admin: 01/26/25 14:59 Dose: 30 ml Multivitamins/Vitamin C (Multivitamin Tablet) 1 tab PO DAILY VERONICA Last Admin: 02/06/25 09:25 Dose: 1 tab Nicotine (Nicotine 7 Mg Patch.Td24) 7 mg TRANSDERMA DAILY VERONICA Last Admin: 02/06/25 09:26 Dose: 7 mg Nicotine Polacrilex (Nicotine Polacrilex 2 Mg Gum) 4 mg BUCCAL Q2H PRN PRN Reason: Nicotine Cravings Last Admin: 01/30/25 18:46 Dose: 4 mg Polyethylene Glycol (Polyethylene Glycol 3350 17 Gm Powd.Pack) 17 gm PO DAILY VERONICA Last Admin: 02/06/25 08:19 Dose: Not Given Prazosin HCl (Prazosin Hcl 1 Mg Capsule) 1 mg PO BEDTIME VERONICA; Protocol Propranolol HCl (Propranolol Hcl 10 Mg Tablet) 10 mg PO TID VERONICA; Protocol Quetiapine Fumarate (Quetiapine Fumarate 50 Mg Tablet) 50 mg PO BID@0900,1500 VERONICA Last Admin: 02/06/25 09:25 Dose: 50 mg Quetiapine Fumarate (Quetiapine Fumarate 400 Mg Tablet) 400 mg PO BEDTIME [facility] Last Admin: 02/05/25 20:42 Dose: 400 mg Allergies Allergies Allergy/AdvReac Type Severity Reaction Status Date / Time olanzapine (From Zyprexa) AdvReac Rash Verified 12/31/24 18:41 Assessment & Plan Assessment & Plan (1) Psychosis: Status: Acute Code(s): F29 - Unspecified psychosis not due to a substance or known physiological condition Plan Ms. Sheridan is a 34 year-old woman who presents with s/s of psychosis, disorganized, some degree of paranoia. She had similar episode back in 2020. 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 I do suspect that there may be underlying psychiatric disorder that is triggered by amphetamine use but not necessarily caused by it. Further evaluation to clarify dx is needed. We discussed inpt level of care. We also discussed restarting risperidone 1mg po BID. low dose clonazepam. continue clonidine. 1. IPLOC 2. start risperidone 1mg po BID. Clonazepam 0.5mg po BID. 01/05: Continue current regimen and plans. 01/06: slept only 2 hours, disorganized, decompensated behaviors. unable to interact cogently. refusing risperidone, will offer seroquel instead. possible bipolar diathesis, T/C mood stabilizer. delirium also a possibility, as the mental status change since admission appears to be striking. 01/07: took seroquel 200 last night, slept 5.5 hours. more organized, linear, able to engage today. continue current mgmt. 01/08: refused seroquel last NOC, slept only 30 minutes. agitated, bizarre, disorganized today. commitment paperwork filed. 01/09: refused meds yesterday but got IMs due to behaviors (outbursts, touching peers, yelling, banging doors, pushed her sitter, climbing on tables and chairs. threatening to stab self with pens). more linear and engageable today, once again the day after having takenm medication. agrees to continue to take seroquel 200 mg QHS. 01/10: took seroquel last NOC and slept 4 hours overnight, but bizarre today. less agitation and intrusiveness than yesterday, but still bizarre and fairly intrusive. pt appears willing to take risperidone, will DC seroquel and return to dosing of risperidone 2 mg BID. took first dose this afternoon. court next monday. 01/11 very paranoid, fearful, taking medications 01/12 continue tx. 01/13: appears a bit more organized today than when not taking medications, although slow and processing poorly. declines to sign CV. commitment hearing tomorrow. 01/14: hearing continued until 01/24 for SINDY. add klonopin 0.5 BID ODT, change risperidone formulation to liquid (pt has been inducing vomiting repeatedly with toothbrush). hold toothbrush unless actively brushing teeth. continues interactive to some extent with MD today, but has been grabbing badges, touching others, and tried to vault into the nursing station in the past 24H. 01/15: IM medication after threatening to punch staff command and control officer with intrusive and aggressive behaviors toward peers. pt did not take klonopin as ordered yesterday. DC klonopin and start VPA 500 BID. per staff, running. tried to make herself vomit after taking PRN. labile. ate her feces in the shower and tried to feed it to her 1:1. crawling under tables. tried to jump into nurses station x2. took her shirt off and swinging it around. did not sleep at all. slept at 7:30am. 01/16: refusing VPA, taking risperidone. napped after IMs yesterday. has been bizarre and labile since. slept only 2 hours overnight. continue current mgmt. 01/17: agitated, bizarre, and aggressive behaviors yesterday (punching and kicking beard, stripping off in milieu, attempting to intimidate staff, grabbing stress balls out of staff's hands). did take VPA this morning on its being offered a second time. more calm today. taking risperidone. 01/18: intermittently refusing VPA, seems to be taking risperidone. asks MD if he is alive, then proposes elbow bump. accusing staff of stealing her things (phone), calling mother and mammalogy teacher in the middle of the night. slept less than 4 hours. 01/19: more lucid today. concerned about risperidone weight gain. agrees to DC risperidone and try prolixin instead, starting at 2.5 BID. 01/20: very disorganized, bizarre, psychotic today. likely due to equivalent dosing of prolixin being given much lower than prior risperidone. as pt seems to be tolerating prolixin without issues, increase prolixin dosing from 2.5 BID to 5 BID. otherwise continue current mgmt. 01/21: less bizarre and disorganized, but still quite ill. variably compliant with medications. c/o leg pain, lowering self to floor; started cogentin 0.5 BID due to concern for dystonia. c/o nightmares, h/o prazosin with good effect. add prazosin 1 mg QHS as of tonight. 01/22: Patients states that she is good. She is scared of [place] herpes after having sex. She refused to participate in an interview with this provider, and walked away stating i don't need a provider. She was observed by this provider, pacing the [place]. Continue current treatment regimen. 01/23: disorganized and dangerous behaviors. voluntarily took IMs. court tomorrow. 01/24: remains disorganized. ran into staff member yesterday, postured and threatened other staff afterward. slept about 6.[address] this afternoon. 01/25/25: Staff 5 6 hours with broken sleep. Compliant with medication with lots of encouragement from yesterday, refused her vitamins in the morning. CT scan was negative, she fell early in the morning, witness her head hit the wall the trying to put her pants on. Slightly improved in mood with medication compliant. VPA level is 52,1 low side. However patient not consistently take it every day. We will recheck. He is on section 8. Pending Wei's order. Less irritable, less racing. 01/26/25: Mostly compliant with medication, to 250/750 mg of Depakote scheduled at bedtime. Labile, restless, poor boundaries, sexually inappropriate behavior, mood is aggravated . Disorganized. Slightly improving but not much. She is better in terms of compliant with medications. 01/27: mostly compliant with meds. improved from last week, more organized and less labile today. agreement reached on medications, reinstate risperidone as primary antipsychotic Tx, remove request for mood stabilizers, remove ativan. DC prolixin, begin taper of VPA, restart risperidone 2 BID, add thorazine 100 and valium 10 at HS to encourage sleep. awaiting med order. 01/28: last evening was pushing, attempting to kick and bite staff, shoulder-checked peer, exposing genitalia to 1:1 staff. took meds last night and this morning. court order received today, reviewed, medications adjusted to comply with order. reportedly more linear today, but pt declined to meet with MD after brief psychotic interaction with MD. 01/29: dysregulated, agitated behaviors continue last night. calmer days. refused VPA this morning. continue VPA taper, decrease from 500 BID to 250 TID as of today. increase HS seroquel from 300 mg to 400 mg as of tonight and HS valium from 10 mg to 15 mg as of tonight for sleep and sylwia. 01/30: same pattern of calm days through mid-afternoon, then decompensation. add third scheduled dosing of risperidone in the middle of the day, schedule valium in the morning and at 3 pm, otherwise continue current mgmt. increase HS seroquel if pt does not sleep more than several hours tonight. continue VPA taper tomorrow. 01/31: calm, morning. severe akathisia eves, unable to sleep or remain still. slept only 2.5 hours. due to 4 mg risperidone daily being inadequate to treat Sx and 6 mg causing severe akathisia, will DC risperidone in favor of a less potent antipsychotic, seroquel. schedule seroquel 100/100/500. taper VPA to 250 BID as of tomorrow. propranolol 20 TID started last night for akathisia, will continue for now. 02/01: no change - monitor akathisia decrease on new regimen 02/02: nicotine patch taper to 7 mg; seems to be doing better with switch to Seroquel and augmentation with Propranolol; primary team may f/u with further discussion of behavioral plan 02/03: much improved from last week. calm, linear, logical, topical. slept 6 hours each the last 3 nights. c/o sedation. decrease daytime valium from 5 BID to 2 BID. decrease daytime seroquel from 100 BID to 75 BID. taper VPA from 250 BID to 250 QHS. 02/04: remains much improved. no overt MSE abnormalities. c/o sedation, decrease seroquel from 75 BID to 50 BID and from 500 QHS to 400 QHS. DC VPA entirely. otherwise continue current mgmt. 02/05: backsliding today. irritable, erratic, more disorganized, labile. stating her intent to stop taking medications, demanding discharge. continue current mgmt. 02/06: much improved today. calm, logical, cogent and topical. pt would like to taper off of valium (addicting) and onto a proper mood stabilizer. personal injury paralegal notified. DC daytime valium. restart prazosin due to c/o nightmares. decrease propranolol from 20 TID to 10 TID (should no longer be necessary as off of medications likely to cause akathisia). DC daytime seroquel tomorrow. Reason for continued inpatient stay Substantial Risk for: inability to function and rapid decompensation Time Spent With Patient Time: Total time managing care of this patient today __45__ minutes.
[2025-02-06 16:15] VITALS: BP 130/67; PULSE 109
[2025-02-06 19:52] VITALS: BP 123/57; PULSE 105; RESP 16; TEMP 36.4; O2SAT 96
[2025-02-06 22:44] VITALS: BP 130/60; PULSE 92
[2025-02-07] MEDS: Nicotine 7 MG PATCH.TD24 TRANSDERMA (07:03)
[2025-02-07 08:29] VITALS: BP 107/60; PULSE 95; RESP 16; TEMP 36.3; O2SAT 99
--- NOTE | 2025-02-07 11:38 | P.PNPSI_ITS ---
Subjective Subjective Date of Service: 02/07/25 Reason For Visit: Crisis Interim History: slept well, no nightmares. similar conversation to yesterday, discussed her desire to work together and to get on a mood stabilizer. lithium had been discussed yesterday. unclear if modification to court order needed to prescribe mood stabilizer. reviewed plan to DC daytime seroquel today. per staff, bright, visible, attending groups. more insight. slept well. Mental Status Exam Mental Status Exam Narrative: Appearance: adequately dressed and groomed Behavior: PMA of leg bouncing Speech: incr amount, nml loudness. decr latency. TP: mostly organized TC: germane but repetitive Mood: euthymic Affect: calm AH/VH: none expressed Insight/judgment: improved Memory/cog: alert, improving. Diagnostics Vital Signs (24Hr): Vital Signs - 24 hr 02/06/25 16:15 02/06/25 19:52 02/06/25 22:44 Temperature 97.6 F Pulse Rate 109 H 105 H Respiratory Rate 16 Blood Pressure 130/67 123/57 L 130/60 Pulse Oximetry 96 Oxygen Delivery Method Room Air 02/06/25 22:44 02/07/25 08:29 Temperature 97.3 F Pulse Rate 92 95 Respiratory Rate 16 Blood Pressure 130/60 107/60 Pulse Oximetry 99 Oxygen Delivery Method Room Air BMI result Body Mass Index 22.7 Labs 01/09/25 16:36 01/09/25 16:36 Imaging Radiology Impressions: ITS Impressions Hand X-Ray 01/16/25 11:30 IMPRESSION: Unremarkable right hand Electronically signed by: Casa Rush MD 01/16/2025 11:46 AM EDT RP Hand X-Ray 01/29/25 07:30 IMPRESSION: Unremarkable examination of the right hand. Electronically signed by: Obdulio Tolbert MD 01/30/2025 07:56 AM EDT RP Medications Medications Current Medications Acetaminophen (Acetaminophen 325 Mg Tablet) 650 mg PO Q6H PRN PRN Reason: Headache/Pain, Scale 1-10 Last Admin: 02/04/25 21:13 Dose: 650 mg Al Hydroxide/Mg Hydroxide (Magnesium Hydrox/Alum Hydrox 30 Ml Oral.Susp) 30 ml PO Q6H PRN PRN Reason: Heartburn/Nausea Last Admin: 01/30/25 14:06 Dose: 30 ml Artificial Tears (Artificial Tears 15 Ml Drops) 2 drop EYE-BOTH Q4H PRN PRN Reason: Dry Eyes Last Admin: 02/06/25 09:24 Dose: 2 drop Diazepam (Diazepam 5 Mg Tablet) 5 mg PO Q4H PRN PRN Reason: agitation Last Admin: 02/05/25 04:10 Dose: 5 mg Diazepam (Diazepam 5 Mg Tablet) 15 mg PO BEDTIME VERONICA Last Admin: 02/06/25 22:43 Dose: 15 mg Diazepam (Diazepam 10 Mg/2 Ml Cartridge) 5 mg IM TID PRN PRN Reason: refusal of seroquel or valium Last Admin: 02/04/25 20:13 Dose: 5 mg Docusate Sodium (Docusate Sodium 100 Mg Capsule) 100 mg PO BID PRN PRN Reason: Constipation Last Admin: 01/30/25 20:10 Dose: 100 mg Haloperidol Lactate (Haloperidol Lactate 5 Mg/Ml Vial) 5 mg IM TID PRN PRN Reason: refusal of scheduled seroquel Last Admin: 02/04/25 20:14 Dose: 5 mg Hydrocortisone (Hydrocortisone 2.5 % Rectal Cr 30 Gm Tube) 1 appl ND DAILY PRN PRN Reason: hemrroids Last Admin: 01/26/25 14:57 Dose: 1 appl Magnesium Hydroxide (Milk Of Magnesia 30 Ml Oral.Susp) 30 ml PO DAILY PRN PRN Reason: Constipation Last Admin: 01/26/25 14:59 Dose: 30 ml Multivitamins/Vitamin C (Multivitamin Tablet) 1 tab PO DAILY VERONICA Last Admin: 02/07/25 08:41 Dose: 1 tab Nicotine (Nicotine 7 Mg Patch.Td24) 7 mg TRANSDERMA DAILY VERONICA Last Admin: 02/07/25 07:03 Dose: 7 mg Nicotine Polacrilex (Nicotine Polacrilex 2 Mg Gum) 4 mg BUCCAL Q2H PRN PRN Reason: Nicotine Cravings Last Admin: 01/30/25 18:46 Dose: 4 mg Polyethylene Glycol (Polyethylene Glycol 3350 17 Gm Powd.Pack) 17 gm PO DAILY PRN PRN Reason: constipation Prazosin HCl (Prazosin Hcl 1 Mg Capsule) 1 mg PO BEDTIME VERONICA; Protocol Last Admin: 02/06/25 22:44 Dose: 1 mg Propranolol HCl (Propranolol Hcl 10 Mg Tablet) 10 mg PO TID VERONICA; Protocol Last Admin: 02/07/25 08:41 Dose: 10 mg Quetiapine Fumarate (Quetiapine Fumarate 400 Mg Tablet) 400 mg PO BEDTIME [facility] Last Admin: 02/06/25 22:44 Dose: 400 mg Allergies Allergies Allergy/AdvReac Type Severity Reaction Status Date / Time olanzapine (From Zyprexa) AdvReac Rash Verified 12/31/24 18:41 Assessment & Plan Assessment & Plan (1) Psychosis: Status: Acute Code(s): F29 - Unspecified psychosis not due to a substance or known physiological condition Plan Ms. Sheridan is a 34 year-old woman who presents with s/s of psychosis, disorganized, some degree of paranoia. She had similar episode back in 2020. 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 I do suspect that there may be underlying psychiatric disorder that is triggered by amphetamine use but not necessarily caused by it. Further evaluation to clarify dx is needed. We discussed inpt level of care. We also discussed restarting risperidone 1mg po BID. low dose clonazepam. continue clonidine. 1. IPLOC 2. start risperidone 1mg po BID. Clonazepam 0.5mg po BID. 01/05: Continue current regimen and plans. 01/06: slept only 2 hours, disorganized, decompensated behaviors. unable to interact cogently. refusing risperidone, will offer seroquel instead. possible bipolar diathesis, T/C mood stabilizer. delirium also a possibility, as the mental status change since admission appears to be striking. 01/07: took seroquel 200 last night, slept 5.5 hours. more organized, linear, able to engage today. continue current mgmt. 01/08: refused seroquel last NOC, slept only 30 minutes. agitated, bizarre, disorganized today. commitment paperwork filed. 01/09: refused meds yesterday but got IMs due to behaviors (outbursts, touching peers, yelling, banging doors, pushed her sitter, climbing on tables and chairs. threatening to stab self with pens). more linear and engageable today, once again the day after having takenm medication. agrees to continue to take seroquel 200 mg QHS. 01/10: took seroquel last NOC and slept 4 hours overnight, but bizarre today. less agitation and intrusiveness than yesterday, but still bizarre and fairly intrusive. pt appears willing to take risperidone, will DC seroquel and return to dosing of risperidone 2 mg BID. took first dose this afternoon. court next monday. 01/11 very paranoid, fearful, taking medications 01/12 continue tx. 01/13: appears a bit more organized today than when not taking medications, although slow and processing poorly. declines to sign CV. commitment hearing tomorrow. 01/14: hearing continued until 01/24 for SINDY. add klonopin 0.5 BID ODT, change risperidone formulation to liquid (pt has been inducing vomiting repeatedly with toothbrush). hold toothbrush unless actively brushing teeth. continues interactive to some extent with MD today, but has been grabbing badges, touching others, and tried to vault into the nursing station in the past 24H. 01/15: IM medication after threatening to punch greenhouse staff with intrusive and aggressive behaviors toward peers. pt did not take klonopin as ordered yesterday. DC klonopin and start VPA 500 BID. per staff, running. tried to make herself vomit after taking PRN. labile. ate her feces in the shower and tried to feed it to her 1:1. crawling under tables. tried to jump into nurses station x2. took her shirt off and swinging it around. did not sleep at all. slept at 7:30am. 01/16: refusing VPA, taking risperidone. napped after IMs yesterday. has been bizarre and labile since. slept only 2 hours overnight. continue current mgmt. 01/17: agitated, bizarre, and aggressive behaviors yesterday (punching and kicking beard, stripping off in milieu, attempting to intimidate staff, grabbing stress balls out of staff's hands). did take VPA this morning on its being offered a second time. more calm today. taking risperidone. 01/18: intermittently refusing VPA, seems to be taking risperidone. asks MD if he is alive, then proposes elbow bump. accusing staff of stealing her things (phone), calling mother and toy trains and accessories salesperson in the middle of the night. slept less than 4 hours. 01/19: more lucid today. concerned about risperidone weight gain. agrees to DC risperidone and try prolixin instead, starting at 2.5 BID. 01/20: very disorganized, bizarre, psychotic today. likely due to equivalent dosing of prolixin being given much lower than prior risperidone. as pt seems to be tolerating prolixin without issues, increase prolixin dosing from 2.5 BID to 5 BID. otherwise continue current mgmt. 01/21: less bizarre and disorganized, but still quite ill. variably compliant with medications. c/o leg pain, lowering self to floor; started cogentin 0.5 BID due to concern for dystonia. c/o nightmares, h/o prazosin with good effect. add prazosin 1 mg QHS as of tonight. 01/22: Patients states that she is good. She is scared of [place] herpes after having sex. She refused to participate in an interview with this provider, and walked away stating i don't need a provider. She was observed by this provider, pacing the [place]. Continue current treatment regimen. 01/23: disorganized and dangerous behaviors. voluntarily took IMs. court tomorrow. 01/24: remains disorganized. ran into staff member yesterday, postured and threatened other staff afterward. slept about 6.[address] this afternoon. 01/25/25: Staff 5 6 hours with broken sleep. Compliant with medication with lots of encouragement from yesterday, refused her vitamins in the morning. CT scan was negative, she fell early in the morning, witness her head hit the wall the trying to put her pants on. Slightly improved in mood with medication compliant. VPA level is 52,1 low side. However patient not consistently take it every day. We will recheck. He is on section 8. Pending Wei's order. Less irritable, less racing. 01/26/25: Mostly compliant with medication, to 250/750 mg of Depakote scheduled at bedtime. Labile, restless, poor boundaries, sexually inappropriate behavior, mood is aggravated . Disorganized. Slightly improving but not much. She is better in terms of compliant with medications. 01/27: mostly compliant with meds. improved from last week, more organized and less labile today. agreement reached on medications, reinstate risperidone as primary antipsychotic Tx, remove request for mood stabilizers, remove ativan. DC prolixin, begin taper of VPA, restart risperidone 2 BID, add thorazine 100 and valium 10 at HS to encourage sleep. awaiting med order. 01/28: last evening was pushing, attempting to kick and bite staff, shoulder- checked peer, exposing genitalia to 1:1 staff. took meds last night and this morning. court order received today, reviewed, medications adjusted to comply with order. reportedly more linear today, but pt declined to meet with MD after brief psychotic interaction with MD. 01/29: dysregulated, agitated behaviors continue last night. calmer days. refused VPA this morning. continue VPA taper, decrease from 500 BID to 250 TID as of today. increase HS seroquel from 300 mg to 400 mg as of tonight and HS valium from 10 mg to 15 mg as of tonight for sleep and sylwia. 01/30: same pattern of calm days through mid-afternoon, then decompensation. add third scheduled dosing of risperidone in the middle of the day, schedule valium in the morning and at 3 pm, otherwise continue current mgmt. increase HS seroquel if pt does not sleep more than several hours tonight. continue VPA taper tomorrow. 01/31: calm, morning. severe akathisia eves, unable to sleep or remain still. slept only 2.5 hours. due to 4 mg risperidone daily being inadequate to treat Sx and 6 mg causing severe akathisia, will DC risperidone in favor of a less potent antipsychotic, seroquel. schedule seroquel 100/100/500. taper VPA to 250 BID as of tomorrow. propranolol 20 TID started last night for akathisia, will continue for now. 02/01: no change - monitor akathisia decrease on new regimen 02/02: nicotine patch taper to 7 mg; seems to be doing better with switch to Seroquel and augmentation with Propranolol; primary team may f/u with further discussion of behavioral plan 02/03: much improved from last week. calm, linear, logical, topical. slept 6 hours each the last 3 nights. c/o sedation. decrease daytime valium from 5 BID to 2 BID. decrease daytime seroquel from 100 BID to 75 BID. taper VPA from 250 BID to 250 QHS. 02/04: remains much improved. no overt MSE abnormalities. c/o sedation, decrease seroquel from 75 BID to 50 BID and from 500 QHS to 400 QHS. DC VPA entirely. otherwise continue current mgmt. 02/05: backsliding today. irritable, erratic, more disorganized, labile. stating her intent to stop taking medications, demanding discharge. continue current mgmt. 02/06: much improved today. calm, logical, cogent and topical. pt would like to taper off of valium (addicting) and onto a proper mood stabilizer. legal records clerk notified. DC daytime valium. restart prazosin due to c/o nightmares. decrease propranolol from 20 TID to 10 TID (should no longer be necessary as off of medications likely to cause akathisia). AK daytime seroquel tomorrow. 02/07: similar conversation to yesterday. DC daytime seroquel. awaiting word from legal re adding lithium. otherwise continue current mgmt. Reason for continued inpatient stay Substantial Risk for: inability to function and rapid decompensation Time Spent With Patient Time: Total time managing care of this patient today __35__ minutes.
[2025-02-07 15:31] VITALS: BP 106/62; PULSE 88
[2025-02-07 20:00] VITALS: BP 120/57; PULSE 97; TEMP 37; O2SAT 98
[2025-02-07 21:38] VITALS: BP 120/57; PULSE 97
[2025-02-07 21:39] VITALS: BP 120/59
[2025-02-08 07:23] VITALS: BP 121/65; PULSE 80
[2025-02-08] MEDS: Nicotine 7 MG PATCH.TD24 TRANSDERMA (07:25)
[2025-02-08 16:45] VITALS: BP 129/67; PULSE 104
--- NOTE | 2025-02-08 17:02 | P.PNPSI_ITS ---
Subjective Subjective Date of Service: 02/08/25 Reason For Visit: Crisis Subjective Notes: Section 8 Interim History: keeping to self. irritable edge. pt reports feeling overwhelmed d/t room change. medication compliant. focused on returning home. denies SI/HI/VH/AH. per nursing, slept 6 hours last night. continue current tx plan. Medication Compliance: Yes Mental Status Exam Mental Status Exam Patient Appearance: Appropriate Patient Orientation: Person, Place, Time and Situation Level of Consciousness: Awake Patient Behavior: Cooperative Mood Description: Angry Affect Description: Blunted Ability to Follow Directions: Good Speech Pattern: Clear Memory Description: Intact Hallucinations: None Delusions: Not Present Thought Process: Intact Thought Content: positive for Perseveration Diagnostics Vital Signs (24Hr): Vital Signs - 24 hr 02/07/25 20:00 02/07/25 21:38 02/07/25 21:39 Temperature 98.6 F Pulse Rate 97 97 Blood Pressure 120/57 L 120/57 L 120/59 L Pulse Oximetry 98 Oxygen Delivery Method Room Air 02/08/25 07:23 02/08/25 16:45 Temperature Pulse Rate 80 104 H Blood Pressure 121/65 129/67 Pulse Oximetry Oxygen Delivery Method BMI result Body Mass Index 22.7 Labs 01/09/25 16:36 01/09/25 16:36 Imaging Radiology Impressions: ITS Impressions Hand X-Ray 01/16/25 11:30 IMPRESSION: Unremarkable right hand Electronically signed by: Casa Rush MD 01/16/2025 11:46 AM EDT RP Hand X-Ray 01/29/25 07:30 IMPRESSION: Unremarkable examination of the right hand. Electronically signed by: Obdulio Tolbert MD 01/30/2025 07:56 AM EDT RP Medications Medications Current Medications Acetaminophen (Acetaminophen 325 Mg Tablet) 650 mg PO Q6H PRN PRN Reason: Headache/Pain, Scale 1-10 Last Admin: 02/04/25 21:13 Dose: 650 mg Al Hydroxide/Mg Hydroxide (Magnesium Hydrox/Alum Hydrox 30 Ml Oral.Susp) 30 ml PO Q6H PRN PRN Reason: Heartburn/Nausea Last Admin: 01/30/25 14:06 Dose: 30 ml Artificial Tears (Artificial Tears 15 Ml Drops) 2 drop EYE-BOTH Q4H PRN PRN Reason: Dry Eyes Last Admin: 02/06/25 09:24 Dose: 2 drop Diazepam (Diazepam 5 Mg Tablet) 5 mg PO Q4H PRN PRN Reason: agitation Last Admin: 02/05/25 04:10 Dose: 5 mg Diazepam (Diazepam 5 Mg Tablet) 15 mg PO BEDTIME VERONICA Last Admin: 02/07/25 21:39 Dose: 15 mg Diazepam (Diazepam 10 Mg/2 Ml Cartridge) 5 mg IM TID PRN PRN Reason: refusal of seroquel or valium Last Admin: 02/04/25 20:13 Dose: 5 mg Docusate Sodium (Docusate Sodium 100 Mg Capsule) 100 mg PO BID PRN PRN Reason: Constipation Last Admin: 01/30/25 20:10 Dose: 100 mg Haloperidol Lactate (Haloperidol Lactate 5 Mg/Ml Vial) 5 mg IM TID PRN PRN Reason: refusal of scheduled seroquel Last Admin: 02/04/25 20:14 Dose: 5 mg Hydrocortisone (Hydrocortisone 2.5 % Rectal Cr 30 Gm Tube) 1 appl MD DAILY PRN PRN Reason: hemrroids Last Admin: 01/26/25 14:57 Dose: 1 appl Magnesium Hydroxide (Milk Of Magnesia 30 Ml Oral.Susp) 30 ml PO DAILY PRN PRN Reason: Constipation Last Admin: 01/26/25 14:59 Dose: 30 ml Multivitamins/Vitamin C (Multivitamin Tablet) 1 tab PO DAILY VERONICA Last Admin: 02/08/25 07:25 Dose: 1 tab Nicotine (Nicotine 7 Mg Patch.Td24) 7 mg TRANSDERMA DAILY VERONICA Last Admin: 02/08/25 07:25 Dose: 7 mg Nicotine Polacrilex (Nicotine Polacrilex 2 Mg Gum) 4 mg BUCCAL Q2H PRN PRN Reason: Nicotine Cravings Last Admin: 01/30/25 18:46 Dose: 4 mg Polyethylene Glycol (Polyethylene Glycol 3350 17 Gm Powd.Pack) 17 gm PO DAILY PRN PRN Reason: constipation Prazosin HCl (Prazosin Hcl 1 Mg Capsule) 1 mg PO BEDTIME VERONICA; Protocol Last Admin: 02/07/25 21:39 Dose: 1 mg Propranolol HCl (Propranolol Hcl 10 Mg Tablet) 10 mg PO TID VERONICA; Protocol Last Admin: 02/08/25 16:45 Dose: 10 mg Quetiapine Fumarate (Quetiapine Fumarate 400 Mg Tablet) 400 mg PO BEDTIME VERONICA Last Admin: 02/07/25 21:38 Dose: 400 mg Allergies Allergies Allergy/AdvReac Type Severity Reaction Status Date / Time olanzapine (From Zyprexa) AdvReac Rash Verified 12/31/24 18:41 Assessment & Plan Assessment & Plan (1) Psychosis: Status: Acute Code(s): F29 - Unspecified psychosis not due to a substance or known physiological condition Plan Ms. Sheridan is a 34 year-old woman who presents with s/s of psychosis, disorganized, some degree of paranoia. She had similar episode back in 2020. 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 I do suspect that there may be underlying psychiatric disorder that is triggered by amphetamine use but not necessarily caused by it. Further evaluation to clarify dx is needed. We discussed inpt level of care. We also discussed restarting risperidone 1mg po BID. low dose clonazepam. continue clonidine. 1. IPLOC 2. start risperidone 1mg po BID. Clonazepam 0.5mg po BID. 01/05: Continue current regimen and plans. 01/06: slept only 2 hours, disorganized, decompensated behaviors. unable to interact cogently. refusing risperidone, will offer seroquel instead. possible bipolar diathesis, T/C mood stabilizer. delirium also a possibility, as the mental status change since admission appears to be striking. 01/07: took seroquel 200 last night, slept 5.5 hours. more organized, linear, able to engage today. continue current mgmt. 01/08: refused seroquel last NOC, slept only 30 minutes. agitated, bizarre, disorganized today. commitment paperwork filed. 01/09: refused meds yesterday but got IMs due to behaviors (outbursts, touching peers, yelling, banging doors, pushed her sitter, climbing on tables and chairs. threatening to stab self with pens). more linear and engageable today, once again the day after having takenm medication. agrees to continue to take seroquel 200 mg QHS. 01/10: took seroquel last NOC and slept 4 hours overnight, but bizarre today. less agitation and intrusiveness than yesterday, but still bizarre and fairly intrusive. pt appears willing to take risperidone, will DC seroquel and return to dosing of risperidone 2 mg BID. took first dose this afternoon. court next monday. 01/11 very paranoid, fearful, taking medications 01/12 continue tx. 01/13: appears a bit more organized today than when not taking medications, although slow and processing poorly. declines to sign CV. commitment hearing tomorrow. 01/14: hearing continued until 01/24 for SINDY. add klonopin 0.5 BID ODT, change risperidone formulation to liquid (pt has been inducing vomiting repeatedly with toothbrush). hold toothbrush unless actively brushing teeth. continues interactive to some extent with MD today, but has been grabbing badges, touching others, and tried to vault into the nursing station in the past 24H. 01/15: IM medication after threatening to punch nursing staffing coordinator with intrusive and aggressive behaviors toward peers. pt did not take klonopin as ordered yesterday. DC klonopin and start VPA 500 BID. per staff, running. tried to make herself vomit after taking PRN. labile. ate her feces in the shower and tried to feed it to her 1:1. crawling under tables. tried to jump into nurses station x2. took her shirt off and swinging it around. did not sleep at all. slept at 7:30am. 01/16: refusing VPA, taking risperidone. napped after IMs yesterday. has been bizarre and labile since. slept only 2 hours overnight. continue current mgmt. 01/17: agitated, bizarre, and aggressive behaviors yesterday (punching and kicking beard, stripping off in milieu, attempting to intimidate staff, grabbing stress balls out of staff's hands). did take VPA this morning on its being offered a second time. more calm today. taking risperidone. 01/18: intermittently refusing VPA, seems to be taking risperidone. asks MD if he is alive, then proposes elbow bump. accusing staff of stealing her things (phone), calling mother and cyber security analyst in the middle of the night. slept less than 4 hours. 01/19: more lucid today. concerned about risperidone weight gain. agrees to DC risperidone and try prolixin instead, starting at 2.5 BID. 01/20: very disorganized, bizarre, psychotic today. likely due to equivalent dosing of prolixin being given much lower than prior risperidone. as pt seems to be tolerating prolixin without issues, increase prolixin dosing from 2.5 BID to 5 BID. otherwise continue current mgmt. 01/21: less bizarre and disorganized, but still quite ill. variably compliant with medications. c/o leg pain, lowering self to floor; started cogentin 0.5 BID due to concern for dystonia. c/o nightmares, h/o prazosin with good effect. add prazosin 1 mg QHS as of tonight. 01/22: Patients states that she is good. She is scared of [place] herpes after having sex. She refused to participate in an interview with this provider, and walked away stating i don't need a provider. She was observed by this provider, pacing the [place]. Continue current treatment regimen. 01/23: disorganized and dangerous behaviors. voluntarily took [employer]. court tomorrow. 01/24: remains disorganized. ran into staff member yesterday, postured and threatened other staff afterward. slept about 6.[address] this afternoon. 01/25/25: Staff 5 6 hours with broken sleep. Compliant with medication with lots of encouragement from yesterday, refused her vitamins in the morning. CT scan was negative, she fell early in the morning, witness her head hit the wall the trying to put her pants on. Slightly improved in mood with medication compliant. VPA level is 52,1 low side. However patient not consistently take it every day. We will recheck. He is on section 8. Pending Wei's order. Less irritable, less racing. 01/26/25: Mostly compliant with medication, to 250/750 mg of Depakote scheduled at bedtime. Labile, restless, poor boundaries, sexually inappropriate behavior, mood is aggravated . Disorganized. Slightly improving but not much. She is better in terms of compliant with medications. 01/27: mostly compliant with meds. improved from last week, more organized and less labile today. agreement reached on medications, reinstate risperidone as primary antipsychotic Tx, remove request for mood stabilizers, remove ativan. DC prolixin, begin taper of VPA, restart risperidone 2 BID, add thorazine 100 and valium 10 at HS to encourage sleep. awaiting med order. 01/28: last evening was pushing, attempting to kick and bite staff, shoulder- checked peer, exposing genitalia to 1:1 staff. took meds last night and this morning. court order received today, reviewed, medications adjusted to comply with order. reportedly more linear today, but pt declined to meet with MD after brief psychotic interaction with MD. 01/29: dysregulated, agitated behaviors continue last night. calmer days. refused VPA this morning. continue VPA taper, decrease from 500 BID to 250 TID as of today. increase HS seroquel from 300 mg to 400 mg as of tonight and HS valium from 10 mg to 15 mg as of tonight for sleep and sylwia. 01/30: same pattern of calm days through mid-afternoon, then decompensation. add third scheduled dosing of risperidone in the middle of the day, schedule valium in the morning and at 3 pm, otherwise continue current mgmt. increase HS seroquel if pt does not sleep more than several hours tonight. continue VPA taper tomorrow. 01/31: calm, morning. severe akathisia eves, unable to sleep or remain still. slept only 2.5 hours. due to 4 mg risperidone daily being inadequate to treat Sx and 6 mg causing severe akathisia, will DC risperidone in favor of a less potent antipsychotic, seroquel. schedule seroquel 100/100/500. taper VPA to 250 BID as of tomorrow. propranolol 20 TID started last night for akathisia, will continue for now. 02/01: no change - monitor akathisia decrease on new regimen 02/02: nicotine patch taper to 7 mg; seems to be doing better with switch to Seroquel and augmentation with Propranolol; primary team may f/u with further discussion of behavioral plan 02/03: much improved from last week. calm, linear, logical, topical. slept 6 hours each the last 3 nights. c/o sedation. decrease daytime valium from 5 BID to 2 BID. decrease daytime seroquel from 100 BID to 75 BID. taper VPA from 250 BID to 250 QHS. 02/04: remains much improved. no overt MSE abnormalities. c/o sedation, decrease seroquel from 75 BID to 50 BID and from 500 QHS to 400 QHS. DC VPA entirely. otherwise continue current mgmt. 02/05: backsliding today. irritable, erratic, more disorganized, labile. stating her intent to stop taking medications, demanding discharge. continue current mgmt. 02/06: much improved today. calm, logical, cogent and topical. pt would like to taper off of valium (addicting) and onto a proper mood stabilizer. legal contracts specialist notified. [place] daytime valium. restart prazosin due to c/o nightmares. decrease propranolol from 20 TID to 10 TID (should no longer be necessary as off of medications likely to cause akathisia). [place] daytime seroquel tomorrow. 02/07: similar conversation to yesterday. [place] daytime seroquel. awaiting word from legal re adding lithium. otherwise continue current mgmt. 02/08: keeping to self. irritable edge. pt reports feeling overwhelmed d/t room change. medication compliant. focused on returning home. denies SI/HI/VH/AH. per nursing, slept 6 hours last night. continue current tx plan. Patient educated on: diagnosis and medication risk/benefits Reason for continued inpatient stay Substantial Risk for: med/psych decompensation Time Spent With Patient Time: Total time managing care of this patient today _20___ minutes.
[2025-02-08 21:54] VITALS: BP 127/61; PULSE 87
[2025-02-09 08:00] VITALS: BP 130/59; PULSE 104; RESP 16; TEMP 2.4; TEMP 36.4; O2SAT 98
[2025-02-09 08:41] VITALS: BP 130/59; PULSE 104
[2025-02-09] MEDS: Nicotine 7 MG PATCH.TD24 TRANSDERMA (08:55)
[2025-02-09 15:32] VITALS: BP 127/66; PULSE 100
--- NOTE | 2025-02-09 17:14 | P.PNPSI_ITS ---
Subjective Subjective Date of Service: 02/09/25 Reason For Visit: Crisis Subjective Notes: Section 8 Interim History: irritable edge. medication compliant. focused on returning home. intrusive during a peer's treatment; declined to walk away when asked by staff multiple times; poor insight and judgment. pt became upset after meeting with her mother; pt stated, my mom says its my behavior why I'm still here. I think they are keeping me here because I locked myself in that room . Valium decreased to 10mg PO bedtime. Medication Compliance: Yes Side effects from medications: No Mental Status Exam Mental Status Exam Patient Appearance: Appropriate Patient Orientation: Person, Place, Time and Situation Level of Consciousness: Awake Patient Behavior: Anxious and Good Eye Contact Mood Description: Angry Affect Description: Blunted Patient Cognition Impaired: No Ability to Follow Directions: Fair Speech Pattern: Clear and Rambling Memory Description: Intact Hallucinations: None Delusions: Not Present Thought Process: Racing Thought Content: positive for Perseveration Judgement: Poor Diagnostics Vital Signs (24Hr): Vital Signs - 24 hr 02/08/25 21:54 02/09/25 08:00 02/09/25 08:41 Temperature 36.4 F L Pulse Rate 87 104 H 104 H Respiratory Rate 16 Blood Pressure 127/61 130/59 L 130/59 L Pulse Oximetry 98 Oxygen Delivery Method Room Air 02/09/25 15:32 Temperature Pulse Rate 100 Respiratory Rate Blood Pressure 127/66 Pulse Oximetry Oxygen Delivery Method BMI result Body Mass Index 22.7 Labs 01/09/25 16:36 01/09/25 16:36 Imaging Radiology Impressions: ITS Impressions Hand X-Ray 01/16/25 11:30 IMPRESSION: Unremarkable right hand Electronically signed by: Casa Rush MD 01/16/2025 11:46 AM EDT RP Hand X-Ray 01/29/25 07:30 IMPRESSION: Unremarkable examination of the right hand. Electronically signed by: Obdulio Tolbert MD 01/30/2025 07:56 AM EDT RP Medications Medications Current Medications Acetaminophen (Acetaminophen 325 Mg Tablet) 650 mg PO Q6H PRN PRN Reason: Headache/Pain, Scale 1-10 Last Admin: 02/04/25 21:13 Dose: 650 mg Al Hydroxide/Mg Hydroxide (Magnesium Hydrox/Alum Hydrox 30 Ml Oral.Susp) 30 ml PO Q6H PRN PRN Reason: Heartburn/Nausea Last Admin: 01/30/25 14:06 Dose: 30 ml Artificial Tears (Artificial Tears 15 Ml Drops) 2 drop EYE-BOTH Q4H PRN PRN Reason: Dry Eyes Last Admin: 02/06/25 09:24 Dose: 2 drop Diazepam (Diazepam 5 Mg Tablet) 5 mg PO Q4H PRN PRN Reason: agitation Last Admin: 02/05/25 04:10 Dose: 5 mg Diazepam (Diazepam 5 Mg Tablet) 15 mg PO BEDTIME VERONICA Last Admin: 02/08/25 21:55 Dose: 15 mg Diazepam (Diazepam 10 Mg/2 Ml Cartridge) 5 mg IM TID PRN PRN Reason: refusal of seroquel or valium Last Admin: 02/04/25 20:13 Dose: 5 mg Docusate Sodium (Docusate Sodium 100 Mg Capsule) 100 mg PO BID PRN PRN Reason: Constipation Last Admin: 01/30/25 20:10 Dose: 100 mg Haloperidol Lactate (Haloperidol Lactate 5 Mg/Ml Vial) 5 mg IM TID PRN PRN Reason: refusal of scheduled seroquel Last Admin: 02/04/25 20:14 Dose: 5 mg Hydrocortisone (Hydrocortisone 2.5 % Rectal Cr 30 Gm Tube) [address] DAILY PRN PRN Reason: hemrroids Last Admin: 01/26/25 14:57 Dose: 1 appl Magnesium Hydroxide (Milk Of Magnesia 30 Ml Oral.Susp) 30 ml PO DAILY PRN PRN Reason: Constipation Last Admin: 01/26/25 14:59 Dose: 30 ml Multivitamins/Vitamin C (Multivitamin Tablet) 1 tab PO DAILY VERONICA Last Admin: 02/09/25 08:42 Dose: 1 tab Nicotine (Nicotine 7 Mg Patch.Td24) 7 mg TRANSDERMA DAILY VERONICA Last Admin: 02/09/25 08:55 Dose: 7 mg Nicotine Polacrilex (Nicotine Polacrilex 2 Mg Gum) 4 mg BUCCAL Q2H PRN PRN Reason: Nicotine Cravings Last Admin: 01/30/25 18:46 Dose: 4 mg Polyethylene Glycol (Polyethylene Glycol 3350 17 Gm Powd.Pack) 17 gm PO DAILY PRN PRN Reason: constipation Prazosin HCl (Prazosin Hcl 1 Mg Capsule) 1 mg PO BEDTIME VERONICA; Protocol Last Admin: 02/08/25 21:55 Dose: 1 mg Propranolol HCl (Propranolol Hcl 10 Mg Tablet) 10 mg PO TID VERONICA; Protocol Last Admin: 02/09/25 15:32 Dose: 10 mg Quetiapine Fumarate (Quetiapine Fumarate 400 Mg Tablet) 400 mg PO BEDTIME VERONICA Last Admin: 02/08/25 21:55 Dose: 400 mg Allergies Allergies Allergy/AdvReac Type Severity Reaction Status Date / Time olanzapine (From Zyprexa) AdvReac Rash Verified 12/31/24 18:41 Assessment & Plan Assessment & Plan (1) Psychosis: Status: Acute Code(s): F29 - Unspecified psychosis not due to a substance or known physiological condition Plan Ms. Sheridan is a 34 year-old woman who presents with s/s of psychosis, disorganized, some degree of paranoia. She had similar episode back in 2020. 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 I do suspect that there may be underlying psychiatric disorder that is triggered by amphetamine use but not necessarily caused by it. Further evaluation to clarify dx is needed. We discussed inpt level of care. We also discussed restarting risperidone 1mg po BID. low dose clonazepam. continue clonidine. 1. IPLOC 2. start risperidone 1mg po BID. Clonazepam 0.5mg po BID. 01/05: Continue current regimen and plans. 01/06: slept only 2 hours, disorganized, decompensated behaviors. unable to interact cogently. refusing risperidone, will offer seroquel instead. possible bipolar diathesis, T/C mood stabilizer. delirium also a possibility, as the mental status change since admission appears to be striking. 01/07: took seroquel 200 last night, slept 5.5 hours. more organized, linear, able to engage today. continue current mgmt. 01/08: refused seroquel last NOC, slept only 30 minutes. agitated, bizarre, disorganized today. commitment paperwork filed. 01/09: refused meds yesterday but got IMs due to behaviors (outbursts, touching peers, yelling, banging doors, pushed her sitter, climbing on tables and chairs. threatening to stab self with pens). more linear and engageable today, once again the day after having takenm medication. agrees to continue to take seroquel 200 mg QHS. 01/10: took seroquel last NOC and slept 4 hours overnight, but bizarre today. less agitation and intrusiveness than yesterday, but still bizarre and fairly intrusive. pt appears willing to take risperidone, will DC seroquel and return to dosing of risperidone 2 mg BID. took first dose this afternoon. court next monday. 01/11 very paranoid, fearful, taking medications 01/12 continue tx. 01/13: appears a bit more organized today than when not taking medications, although slow and processing poorly. declines to sign CV. commitment hearing tomorrow. 01/14: hearing continued until 01/24 for SINDY. add klonopin 0.5 BID ODT, change risperidone formulation to liquid (pt has been inducing vomiting repeatedly with toothbrush). hold toothbrush unless actively brushing teeth. continues interactive to some extent with MD today, but has been grabbing badges, touching others, and tried to vault into the nursing station in the past 24H. 01/15: IM medication after threatening to punch staff nurse midwife with intrusive and aggressive behaviors toward peers. pt did not take klonopin as ordered yesterday. DC klonopin and start VPA 500 BID. per staff, running. tried to make herself vomit after taking PRN. labile. ate her feces in the shower and tried to feed it to her 1:1. crawling under tables. tried to jump into nurses station x2. took her shirt off and swinging it around. did not sleep at all. slept at 7:30am. 01/16: refusing VPA, taking risperidone. napped after IMs yesterday. has been bizarre and labile since. slept only 2 hours overnight. continue current mgmt. 01/17: agitated, bizarre, and aggressive behaviors yesterday (punching and kicking beard, stripping off in milieu, attempting to intimidate staff, grabbing stress balls out of staff's hands). did take VPA this morning on its being offered a second time. more calm today. taking risperidone. 01/18: intermittently refusing VPA, seems to be taking risperidone. asks MD if he is alive, then proposes elbow bump. accusing staff of stealing her things (phone), calling mother and plate sensitizer in the middle of the night. slept less than 4 hours. 01/19: more lucid today. concerned about risperidone weight gain. agrees to DC risperidone and try prolixin instead, starting at 2.5 BID. 01/20: very disorganized, bizarre, psychotic today. likely due to equivalent dosing of prolixin being given much lower than prior risperidone. as pt seems to be tolerating prolixin without issues, increase prolixin dosing from 2.5 BID to 5 BID. otherwise continue current mgmt. 01/21: less bizarre and disorganized, but still quite ill. variably compliant with medications. c/o leg pain, lowering self to floor; started cogentin 0.5 BID due to concern for dystonia. c/o nightmares, h/o prazosin with good effect. add prazosin 1 mg QHS as of tonight. 01/22: Patients states that she is good. She is scared of [place] herpes after having sex. She refused to participate in an interview with this provider, and walked away stating i don't need a provider. She was observed by this provider, pacing the [place]. Continue current treatment regimen. 01/23: disorganized and dangerous behaviors. voluntarily took IMs. court tomorrow. 01/24: remains disorganized. ran into staff member yesterday, postured and threatened other staff afterward. slept about 6.[address] this afternoon. 01/25/25: Staff 5 6 hours with broken sleep. Compliant with medication with lots of encouragement from yesterday, refused her vitamins in the morning. CT scan was negative, she fell early in the morning, witness her head hit the wall the trying to put her pants on. Slightly improved in mood with medication compliant. VPA level is 52,1 low side. However patient not consistently take it every day. We will recheck. He is on section 8. Pending Wei's order. Less irritable, less racing. 01/26/25: Mostly compliant with medication, to 250/750 mg of Depakote scheduled at bedtime. Labile, restless, poor boundaries, sexually inappropriate behavior, mood is aggravated . Disorganized. Slightly improving but not much. She is better in terms of compliant with medications. 01/27: mostly compliant with meds. improved from last week, more organized and less labile today. agreement reached on medications, reinstate risperidone as primary antipsychotic Tx, remove request for mood stabilizers, remove ativan. DC prolixin, begin taper of VPA, restart risperidone 2 BID, add thorazine 100 and valium 10 at HS to encourage sleep. awaiting med order. 01/28: last evening was pushing, attempting to kick and bite staff, shoulder- checked peer, exposing genitalia to 1:1 staff. took meds last night and this morning. court order received today, reviewed, medications adjusted to comply with order. reportedly more linear today, but pt declined to meet with MD after brief psychotic interaction with MD. 01/29: dysregulated, agitated behaviors continue last night. calmer days. refused VPA this morning. continue VPA taper, decrease from 500 BID to 250 TID as of today. increase HS seroquel from 300 mg to 400 mg as of tonight and HS valium from 10 mg to 15 mg as of tonight for sleep and sylwia. 01/30: same pattern of calm days through mid-afternoon, then decompensation. add third scheduled dosing of risperidone in the middle of the day, schedule valium in the morning and at 3 pm, otherwise continue current mgmt. increase HS seroquel if pt does not sleep more than several hours tonight. continue VPA taper tomorrow. 01/31: calm, morning. severe akathisia eves, unable to sleep or remain still. slept only 2.5 hours. due to 4 mg risperidone daily being inadequate to treat Sx and 6 mg causing severe akathisia, will DC risperidone in favor of a less potent antipsychotic, seroquel. schedule seroquel 100/100/500. taper VPA to 250 BID as of tomorrow. propranolol 20 TID started last night for akathisia, will continue for now. 02/01: no change - monitor akathisia decrease on new regimen 02/02: nicotine patch taper to 7 mg; seems to be doing better with switch to Seroquel and augmentation with Propranolol; primary team may f/u with further discussion of behavioral plan 02/03: much improved from last week. calm, linear, logical, topical. slept 6 hours each the last 3 nights. c/o sedation. decrease daytime valium from 5 BID to 2 BID. decrease daytime seroquel from 100 BID to 75 BID. taper VPA from 250 BID to 250 QHS. 02/04: remains much improved. no overt MSE abnormalities. c/o sedation, decrease seroquel from 75 BID to 50 BID and from 500 QHS to 400 QHS. DC VPA entirely. otherwise continue current mgmt. 02/05: backsliding today. irritable, erratic, more disorganized, labile. stating her intent to stop taking medications, demanding discharge. continue current mgmt. 02/06: much improved today. calm, logical, cogent and topical. pt would like to taper off of valium (addicting) and onto a proper mood stabilizer. paralegal instructor notified. DC daytime valium. restart prazosin due to c/o nightmares. decrease propranolol from 20 TID to 10 TID (should no longer be necessary as off of medications likely to cause akathisia). DC daytime seroquel tomorrow. 02/07: similar conversation to yesterday. DC daytime seroquel. awaiting word from legal re adding lithium. otherwise continue current mgmt. 02/08: keeping to self. irritable edge. pt reports feeling overwhelmed d/t room change. medication compliant. focused on returning home. denies SI/HI/VH/AH. per nursing, slept 6 hours last night. continue current tx plan. 02/09: irritable edge. medication compliant. focused on returning home. intrusive during a peer's treatment; declined to walk away when asked by staff multiple times; poor insight and judgment. pt became upset after meeting with her mother; pt stated, my mom says its my behavior why I'm still here. I think they are keeping me here because I locked myself in that room . Valium decreased to 10mg PO bedtime. Patient educated on: diagnosis and medication risk/benefits Reason for continued inpatient stay Substantial Risk for: med/psych decompensation Time Spent With Patient Time: Total time managing care of this patient today __20__ minutes.
[2025-02-09 21:56] VITALS: BP 122/63; PULSE 88
[2025-02-10 07:48] VITALS: BP 98/57; PULSE 88; RESP 18; TEMP 36.3; O2SAT 97
[2025-02-10] MEDS: Nicotine 7 MG PATCH.TD24 TRANSDERMA (08:33)
[2025-02-10 08:34] VITALS: BP 130/59; PULSE 104
--- NOTE | 2025-02-10 09:39 | P.PNPSI_ITS ---
Subjective Subjective Date of Service: 02/10/25 Reason For Visit: Crisis Subjective Notes: Section 8 Interim History: irritable. medication compliant. Perseverative on discharge. Patient reports sleeping well last night. Appears calmer today. She reports visit with her mother when well. Denies SI/HI/VH/AH. Attending groups. Medication Compliance: Yes Side effects from medications: No Attending Groups: Yes Mental Status Exam Mental Status Exam Patient Appearance: Appropriate Patient Orientation: Person, Place, Time and Situation Level of Consciousness: Awake Patient Behavior: Anxious and Good Eye Contact Mood Description: Angry Affect Description: Blunted Patient Cognition Impaired: No Ability to Follow Directions: Good Speech Pattern: Clear and Perseverating Memory Description: Intact Hallucinations: None Delusions: Not Present Thought Process: Rumination Thought Content: positive for Perseveration Diagnostics Vital Signs (24Hr): Vital Signs - 24 hr 02/09/25 15:32 02/09/25 21:56 02/10/25 07:48 Temperature 97.3 F Pulse Rate 100 88 88 Respiratory Rate 18 Blood Pressure 127/66 122/63 98/57 L Pulse Oximetry 97 Oxygen Delivery Method Room Air 02/10/25 08:34 Temperature Pulse Rate 104 H Respiratory Rate Blood Pressure 130/59 L Pulse Oximetry Oxygen Delivery Method BMI result Body Mass Index 22.7 Labs 01/09/25 16:36 01/09/25 16:36 Imaging Radiology Impressions: ITS Impressions Hand X-Ray 01/16/25 11:30 IMPRESSION: Unremarkable right hand Electronically signed by: Casa Rush MD 01/16/2025 11:46 AM EDT RP Hand X-Ray 01/29/25 07:30 IMPRESSION: Unremarkable examination of the right hand. Electronically signed by: Obdulio Tolbert MD 01/30/2025 07:56 AM EDT RP Medications Medications Current Medications Acetaminophen (Acetaminophen 325 Mg Tablet) 650 mg PO Q6H PRN PRN Reason: Headache/Pain, Scale 1-10 Last Admin: 02/04/25 21:13 Dose: 650 mg Al Hydroxide/Mg Hydroxide (Magnesium Hydrox/Alum Hydrox 30 Ml Oral.Susp) 30 ml PO Q6H PRN PRN Reason: Heartburn/Nausea Last Admin: 01/30/25 14:06 Dose: 30 ml Artificial Tears (Artificial Tears 15 Ml Drops) 2 drop EYE-BOTH Q4H PRN PRN Reason: Dry Eyes Last Admin: 02/06/25 09:24 Dose: 2 drop Diazepam (Diazepam 5 Mg Tablet) 5 mg PO Q4H PRN PRN Reason: agitation Last Admin: 02/05/25 04:10 Dose: 5 mg Diazepam (Diazepam 10 Mg/2 Ml Cartridge) 5 mg IM TID PRN PRN Reason: refusal of seroquel or valium Last Admin: 02/04/25 20:13 Dose: 5 mg Diazepam (Diazepam 5 Mg Tablet) 10 mg PO BEDTIME VERONICA Last Admin: 02/09/25 21:56 Dose: 10 mg Docusate Sodium (Docusate Sodium 100 Mg Capsule) 100 mg PO BID PRN PRN Reason: Constipation Last Admin: 01/30/25 20:10 Dose: 100 mg Haloperidol Lactate (Haloperidol Lactate 5 Mg/Ml Vial) 5 mg IM TID PRN PRN Reason: refusal of scheduled seroquel Last Admin: 02/04/25 20:14 Dose: 5 mg Hydrocortisone (Hydrocortisone 2.5 % Rectal Cr 30 Gm Tube) 1 appl KS DAILY PRN PRN Reason: hemrroids Last Admin: 01/26/25 14:57 Dose: 1 appl Magnesium Hydroxide (Milk Of Magnesia 30 Ml Oral.Susp) 30 ml PO DAILY PRN PRN Reason: Constipation Last Admin: 01/26/25 14:59 Dose: 30 ml Multivitamins/Vitamin C (Multivitamin Tablet) 1 tab PO DAILY VERONICA Last Admin: 02/10/25 08:34 Dose: 1 tab Nicotine (Nicotine 7 Mg Patch.Td24) 7 mg TRANSDERMA DAILY [facility] Last Admin: 02/10/25 08:33 Dose: 7 mg Nicotine Polacrilex (Nicotine Polacrilex 2 Mg Gum) 4 mg BUCCAL Q2H PRN PRN Reason: Nicotine Cravings Last Admin: 01/30/25 18:46 Dose: 4 mg Polyethylene Glycol (Polyethylene Glycol 3350 17 Gm Powd.Pack) 17 gm PO DAILY PRN PRN Reason: constipation Prazosin HCl (Prazosin Hcl 1 Mg Capsule) 1 mg PO BEDTIME VERONICA; Protocol Last Admin: 02/09/25 21:57 Dose: 1 mg Propranolol HCl (Propranolol Hcl 10 Mg Tablet) 10 mg PO TID VERONICA; Protocol Last Admin: 02/10/25 08:34 Dose: 10 mg Quetiapine Fumarate (Quetiapine Fumarate 400 Mg Tablet) 400 mg PO BEDTIME VERONICA Last Admin: 02/09/25 21:57 Dose: 400 mg Allergies Allergies Allergy/AdvReac Type Severity Reaction Status Date / Time olanzapine (From Zyprexa) AdvReac Rash Verified 12/31/24 18:41 Assessment & Plan Assessment & Plan (1) Psychosis: Status: Acute Code(s): F29 - Unspecified psychosis not due to a substance or known physiological condition Plan Ms. Sheridan is a 34 year-old woman who presents with s/s of psychosis, disorganized, some degree of paranoia. She had similar episode back in 2020. 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 I do suspect that there may be underlying psychiatric disorder that is triggered by amphetamine use but not necessarily caused by it. Further evaluation to clarify dx is needed. We discussed inpt level of care. We also discussed restarting risperidone 1mg po BID. low dose clonazepam. continue clonidine. 1. IPLOC 2. start risperidone 1mg po BID. Clonazepam 0.5mg po BID. 01/05: Continue current regimen and plans. 01/06: slept only 2 hours, disorganized, decompensated behaviors. unable to interact cogently. refusing risperidone, will offer seroquel instead. possible bipolar diathesis, T/C mood stabilizer. delirium also a possibility, as the mental status change since admission appears to be striking. 01/07: took seroquel 200 last night, slept 5.5 hours. more organized, linear, able to engage today. continue current mgmt. 01/08: refused seroquel last NOC, slept only 30 minutes. agitated, bizarre, disorganized today. commitment paperwork filed. 01/09: refused meds yesterday but got IMs due to behaviors (outbursts, touching peers, yelling, banging doors, pushed her sitter, climbing on tables and chairs. threatening to stab self with pens). more linear and engageable today, once again the day after having takenm medication. agrees to continue to take seroquel 200 mg QHS. 01/10: took seroquel last NOC and slept 4 hours overnight, but bizarre today. less agitation and intrusiveness than yesterday, but still bizarre and fairly intrusive. pt appears willing to take risperidone, will DC seroquel and return to dosing of risperidone 2 mg BID. took first dose this afternoon. court next monday. 01/11 very paranoid, fearful, taking medications 01/12 continue tx. 01/13: appears a bit more organized today than when not taking medications, although slow and processing poorly. declines to sign CV. commitment hearing tomorrow. 01/14: hearing continued until 01/24 for SINDY. add klonopin 0.5 BID ODT, change risperidone formulation to liquid (pt has been inducing vomiting repeatedly with toothbrush). hold toothbrush unless actively brushing teeth. continues interactive to some extent with MD today, but has been grabbing badges, touching others, and tried to vault into the nursing station in the past 24H. 01/15: IM medication after threatening to punch staff midwife/apprenticeship director with intrusive and aggressive behaviors toward peers. pt did not take klonopin as ordered yesterday. DC klonopin and start VPA 500 BID. per staff, running. tried to make herself vomit after taking PRN. labile. ate her feces in the shower and tried to feed it to her 1:1. crawling under tables. tried to jump into nurses station x2. took her shirt off and swinging it around. did not sleep at all. slept at 7:30am. 01/16: refusing VPA, taking risperidone. napped after IMs yesterday. has been bizarre and labile since. slept only 2 hours overnight. continue current mgmt. 01/17: agitated, bizarre, and aggressive behaviors yesterday (punching and kicking beard, stripping off in milieu, attempting to intimidate staff, grabbing stress balls out of staff's hands). did take VPA this morning on its being offered a second time. more calm today. taking risperidone. 01/18: intermittently refusing VPA, seems to be taking risperidone. asks MD if he is alive, then proposes elbow bump. accusing staff of stealing her things (phone), calling mother and dancing teacher in the middle of the night. slept less than 4 hours. 01/19: more lucid today. concerned about risperidone weight gain. agrees to DC risperidone and try prolixin instead, starting at 2.5 BID. 01/20: very disorganized, bizarre, psychotic today. likely due to equivalent dosing of prolixin being given much lower than prior risperidone. as pt seems to be tolerating prolixin without issues, increase prolixin dosing from 2.5 BID to 5 BID. otherwise continue current mgmt. 01/21: less bizarre and disorganized, but still quite ill. variably compliant with medications. c/o leg pain, lowering self to floor; started cogentin 0.5 BID due to concern for dystonia. c/o nightmares, h/o prazosin with good effect. add prazosin 1 mg QHS as of tonight. 01/22: Patients states that she is good. She is scared of [place] herpes after having sex. She refused to participate in an interview with this provider, and walked away stating i don't need a provider. She was observed by this provider, pacing the [place]. Continue current treatment regimen. 01/23: disorganized and dangerous behaviors. voluntarily took IMs. court tomorrow. 01/24: remains disorganized. ran into staff member yesterday, postured and threatened other staff afterward. slept about 6.[address] this afternoon. 01/25/25: Staff 5 6 hours with broken sleep. Compliant with medication with lots of encouragement from yesterday, refused her vitamins in the morning. CT scan was negative, she fell early in the morning, witness her head hit the wall the trying to put her pants on. Slightly improved in mood with medication compliant. VPA level is 52,1 low side. However patient not consistently take it every day. We will recheck. He is on section 8. Pending Wei's order. Less irritable, less racing. 01/26/25: Mostly compliant with medication, to 250/750 mg of Depakote scheduled at bedtime. Labile, restless, poor boundaries, sexually inappropriate behavior, mood is aggravated . Disorganized. Slightly improving but not much. She is better in terms of compliant with medications. 01/27: mostly compliant with meds. improved from last week, more organized and less labile today. agreement reached on medications, reinstate risperidone as primary antipsychotic Tx, remove request for mood stabilizers, remove ativan. DC prolixin, begin taper of VPA, restart risperidone 2 BID, add thorazine 100 and valium 10 at HS to encourage sleep. awaiting med order. 01/28: last evening was pushing, attempting to kick and bite staff, shoulder- checked peer, exposing genitalia to 1:1 staff. took meds last night and this morning. court order received today, reviewed, medications adjusted to comply with order. reportedly more linear today, but pt declined to meet with MD after brief psychotic interaction with MD. 01/29: dysregulated, agitated behaviors continue last night. calmer days. refused VPA this morning. continue VPA taper, decrease from 500 BID to 250 TID as of today. increase HS seroquel from 300 mg to 400 mg as of tonight and HS valium from 10 mg to 15 mg as of tonight for sleep and sylwia. 01/30: same pattern of calm days through mid-afternoon, then decompensation. add third scheduled dosing of risperidone in the middle of the day, schedule valium in the morning and at 3 pm, otherwise continue current mgmt. increase HS seroquel if pt does not sleep more than several hours tonight. continue VPA taper tomorrow. 01/31: calm, morning. severe akathisia eves, unable to sleep or remain still. slept only 2.5 hours. due to 4 mg risperidone daily being inadequate to treat Sx and 6 mg causing severe akathisia, will DC risperidone in favor of a less potent antipsychotic, seroquel. schedule seroquel 100/100/500. taper VPA to 250 BID as of tomorrow. propranolol 20 TID started last night for akathisia, will continue for now. 02/01: no change - monitor akathisia decrease on new regimen 02/02: nicotine patch taper to 7 mg; seems to be doing better with switch to Seroquel and augmentation with Propranolol; primary team may f/u with further discussion of behavioral plan 02/03: much improved from last week. calm, linear, logical, topical. slept 6 hours each the last 3 nights. c/o sedation. decrease daytime valium from 5 BID to 2 BID. decrease daytime seroquel from 100 BID to 75 BID. taper VPA from 250 BID to 250 QHS. 02/04: remains much improved. no overt MSE abnormalities. c/o sedation, decrease seroquel from 75 BID to 50 BID and from 500 QHS to 400 QHS. DC VPA entirely. otherwise continue current mgmt. 02/05: backsliding today. irritable, erratic, more disorganized, labile. stating her intent to stop taking medications, demanding discharge. continue current mgmt. 02/06: much improved today. calm, logical, cogent and topical. pt would like to taper off of valium (addicting) and onto a proper mood stabilizer. real estate legal assistant notified. GA daytime valium. restart prazosin due to c/o nightmares. decrease propranolol from 20 TID to 10 TID (should no longer be necessary as off of medications likely to cause akathisia). GA daytime seroquel tomorrow. 02/07: similar conversation to yesterday. DC daytime seroquel. awaiting word from legal re adding lithium. otherwise continue current mgmt. 02/08: keeping to self. irritable edge. pt reports feeling overwhelmed d/t room change. medication compliant. focused on returning home. denies SI/HI/VH/AH. per nursing, slept 6 hours last night. continue current tx plan. 02/09: irritable edge. medication compliant. focused on returning home. intrusive during a peer's treatment; declined to walk away when asked by staff multiple times; poor insight and judgment. pt became upset after meeting with her mother; pt stated, my mom says its my behavior why I'm still here. I think they are keeping me here because I locked myself in that room . Valium decreased to 10mg PO bedtime. 02/10: irritable. medication compliant. Perseverative on discharge. Patient reports sleeping well last night. Appears calmer today. She reports visit with her mother when well. Denies SI/HI/VH/AH. Attending groups. Continue current treatment plan Patient educated on: diagnosis and medication risk/benefits Reason for continued inpatient stay Substantial Risk for: med/psych decompensation Time Spent With Patient Time: Total time managing care of this patient today _20___ minutes.
[2025-02-10 16:00] VITALS: BP 153/84; PULSE 103
[2025-02-10 23:14] VITALS: BP 99/69; PULSE 86; RESP 16; TEMP 36.7; O2SAT 98
[2025-02-11 07:32] VITALS: BP 95/54; PULSE 85; RESP 16; TEMP 36.8
[2025-02-11 09:36] VITALS: BP 117/64; PULSE 85
[2025-02-11] MEDS: Nicotine 7 MG PATCH.TD24 TRANSDERMA (10:05)
[2025-02-11 15:14] VITALS: BP 113/61; PULSE 95
--- NOTE | 2025-02-11 20:39 | HO.PSYCHPN ---
Subjective Subjective Date of Service: 02/11/25 Reason For Visit: Crisis Subjective Notes: Section 8 Healthcare Proxy: No Guardianship: No Medical Problems Affecting Mental Status: No Interim History: Medical record and nursing notes reviewed; case discussed during rounds with team/nursing staff, and met with patient for supportive therapy/psychoeducation, as well as medication management. Patient slept for 6 hours, compliant with medications. Patient met with manager social in the sensory room, this provider joint the meeting after. Denies suicidal thoughts or homicidal thoughts. Denies hallucinations. She is not rationale, arguing that she is not having bipolar and that Dr. Franklin is not here she is not here to be diagnosed. She believes she had ADHD and autism. She believes that she is on very stabilized and ready for the discharge. Reports that she feeling high on medication and I am here for no reasons . Patient reported that she talked to her sales representative [employer], and the sales representative marine supplies thing I shouldn't be here . Observe patient attended groups, mood swing, irrational at times. Per nursing, patient have good visit with brothers and mom yesterday, was irritable getting a roommate yesterday. Medication Compliance: Yes Side effects from medications: No Attending Groups: Yes Review of Systems Acute medical concerns: No Medical Review of Systems: unchanged Review of Systems Review of Systems Constitutional: Denies fatigue and Denies fever(s) Cardiovascular: Denies chest pain and Denies dyspnea Respiratory: Denies dyspnea Gastrointestinal: Denies abdominal pain Psychiatric: denies suicidal ideation Endocrine: Denies fatigue Yes all other systems are reviewed and are negative Mental Status Exam Mental Status Exam Narrative: Appearance: adequately dressed and groomed Behavior: Irritable at times, demonstrate some patient moment. Speech: Within normal limits, TP: disorganized, irrational TC: Focused on discharge. Mood: Agitated Affect: Irritable AH/VH: Denies Insight/judgment: Poor with mild improvement Memory/cog: improving. Diagnostics Vital Signs (24Hr): Vital Signs - 24 hr 02/10/25 23:14 02/11/25 07:32 02/11/25 09:36 Temperature 98.0 F 98.2 F Pulse Rate 86 85 85 Respiratory Rate 16 16 Blood Pressure 99/69 95/54 L 117/64 Pulse Oximetry 98 Oxygen Delivery Method Room Air Room Air 02/11/25 15:14 Temperature Pulse Rate 95 Respiratory Rate Blood Pressure 113/61 Pulse Oximetry Oxygen Delivery Method BMI result Body Mass Index 22.7 Labs 01/09/25 16:36 01/09/25 16:36 Imaging Radiology Impressions: ITS Impressions Hand X-Ray 01/16/25 11:30 IMPRESSION: Unremarkable right hand Electronically signed by: Casa Rush MD 01/16/2025 11:46 AM EDT RP Hand X-Ray 01/29/25 07:30 IMPRESSION: Unremarkable examination of the right hand. Electronically signed by: Obdulio Tolbert MD 01/30/2025 07:56 AM EDT RP Medications Medications Current Medications Acetaminophen (Acetaminophen 325 Mg Tablet) 650 mg PO Q6H PRN PRN Reason: Headache/Pain, Scale 1-10 Last Admin: 02/10/25 23:21 Dose: 650 mg Al Hydroxide/Mg Hydroxide (Magnesium Hydrox/Alum Hydrox 30 Ml Oral.Susp) 30 ml PO Q6H PRN PRN Reason: Heartburn/Nausea Last Admin: 01/30/25 14:06 Dose: 30 ml Artificial Tears (Artificial Tears 15 Ml Drops) 2 drop EYE-BOTH Q4H PRN PRN Reason: Dry Eyes Last Admin: 02/06/25 09:24 Dose: 2 drop Diazepam (Diazepam 5 Mg Tablet) 5 mg PO Q4H PRN PRN Reason: agitation Last Admin: 02/05/25 04:10 Dose: 5 mg Diazepam (Diazepam 10 Mg/2 Ml Cartridge) 5 mg IM TID PRN PRN Reason: refusal of seroquel or valium Last Admin: 02/04/25 20:13 Dose: 5 mg Diazepam (Diazepam 5 Mg Tablet) 10 mg PO BEDTIME VERONICA Last Admin: 02/10/25 23:15 Dose: 10 mg Docusate Sodium (Docusate Sodium 100 Mg Capsule) 100 mg PO BID PRN PRN Reason: Constipation Last Admin: 01/30/25 20:10 Dose: 100 mg Haloperidol Lactate (Haloperidol Lactate 5 Mg/Ml Vial) 5 mg IM TID PRN PRN Reason: refusal of scheduled seroquel Last Admin: 02/04/25 20:14 Dose: 5 mg Hydrocortisone (Hydrocortisone 2.5 % Rectal Cr 30 Gm Tube) 1 appl AR DAILY PRN PRN Reason: hemrroids Last Admin: 01/26/25 14:57 Dose: 1 appl Magnesium Hydroxide (Milk Of Magnesia 30 Ml Oral.Susp) 30 ml PO DAILY PRN PRN Reason: Constipation Last Admin: 01/26/25 14:59 Dose: 30 ml Multivitamins/Vitamin C (Multivitamin Tablet) 1 tab PO DAILY VERONICA Last Admin: 02/11/25 10:04 Dose: 1 tab Nicotine (Nicotine 7 Mg Patch.Td24) 7 mg TRANSDERMA DAILY VERONICA Last Admin: 02/11/25 10:05 Dose: 7 mg Nicotine Polacrilex (Nicotine Polacrilex 2 Mg Gum) 4 mg BUCCAL Q2H PRN PRN Reason: Nicotine Cravings Last Admin: 01/30/25 18:46 Dose: 4 mg Polyethylene Glycol (Polyethylene Glycol 3350 17 Gm Powd.Pack) 17 gm PO DAILY PRN PRN Reason: constipation Prazosin HCl (Prazosin Hcl 1 Mg Capsule) 1 mg PO BEDTIME VERONICA; Protocol Last Admin: 02/10/25 23:16 Dose: 1 mg Propranolol HCl (Propranolol Hcl 10 Mg Tablet) 10 mg PO TID VERONICA; Protocol Last Admin: 02/11/25 15:15 Dose: 10 mg Quetiapine Fumarate (Quetiapine Fumarate 400 Mg Tablet) 400 mg PO BEDTIME VERONICA Last Admin: 02/10/25 23:15 Dose: 400 mg Allergies Allergies Allergy/AdvReac Type Severity Reaction Status Date / Time olanzapine (From Zyprexa) AdvReac Rash Verified 12/31/24 18:41 Assessment & Plan Assessment & Plan (1) Psychosis: Status: Acute Code(s): F29 - Unspecified psychosis not due to a substance or known physiological condition Plan Ms. Sheridan is a 34 year-old woman who presents with s/s of psychosis, disorganized, some degree of paranoia. She had similar episode back in 2020. 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 I do suspect that there may be underlying psychiatric disorder that is triggered by amphetamine use but not necessarily caused by it. Further evaluation to clarify dx is needed. We discussed inpt level of care. We also discussed restarting risperidone 1mg po BID. low dose clonazepam. continue clonidine. 1. IPLOC 2. start risperidone 1mg po BID. Clonazepam 0.5mg po BID. 01/05: Continue current regimen and plans. 01/06: slept only 2 hours, disorganized, decompensated behaviors. unable to interact cogently. refusing risperidone, will offer seroquel instead. possible bipolar diathesis, T/C mood stabilizer. delirium also a possibility, as the mental status change since admission appears to be striking. 01/07: took seroquel 200 last night, slept 5.5 hours. more organized, linear, able to engage today. continue current mgmt. 01/08: refused seroquel last NOC, slept only 30 minutes. agitated, bizarre, disorganized today. commitment paperwork filed. 01/09: refused meds yesterday but got IMs due to behaviors (outbursts, touching peers, yelling, banging doors, pushed her sitter, climbing on tables and chairs. threatening to stab self with pens). more linear and engageable today, once again the day after having takenm medication. agrees to continue to take seroquel 200 mg QHS. 01/10: took seroquel last NOC and slept 4 hours overnight, but bizarre today. less agitation and intrusiveness than yesterday, but still bizarre and fairly intrusive. pt appears willing to take risperidone, will DC seroquel and return to dosing of risperidone 2 mg BID. took first dose this afternoon. court next monday. 01/11 very paranoid, fearful, taking medications 01/12 continue tx. 01/13: appears a bit more organized today than when not taking medications, although slow and processing poorly. declines to sign CV. commitment hearing tomorrow. 01/14: hearing continued until 01/24 for SINYD. add klonopin 0.5 BID ODT, change risperidone formulation to liquid (pt has been inducing vomiting repeatedly with toothbrush). hold toothbrush unless actively brushing teeth. continues interactive to some extent with MD today, but has been grabbing badges, touching others, and tried to vault into the nursing station in the past 24H. 01/15: IM medication after threatening to punch member of technical staff with intrusive and aggressive behaviors toward peers. pt did not take klonopin as ordered yesterday. DC klonopin and start VPA 500 BID. per staff, running. tried to make herself vomit after taking PRN. labile. ate her feces in the shower and tried to feed it to her 1:1. crawling under tables. tried to jump into nurses station x2. took her shirt off and swinging it around. did not sleep at all. slept at 7:30am. 01/16: refusing VPA, taking risperidone. napped after IMs yesterday. has been bizarre and labile since. slept only 2 hours overnight. continue current mgmt. 01/17: agitated, bizarre, and aggressive behaviors yesterday (punching and kicking beard, stripping off in milieu, attempting to intimidate staff, grabbing stress balls out of staff's hands). did take VPA this morning on its being offered a second time. more calm today. taking risperidone. 01/18: intermittently refusing VPA, seems to be taking risperidone. asks MD if he is alive, then proposes elbow bump. accusing staff of stealing her things (phone), calling mother and sales representative marine supplies in the middle of the night. slept less than 4 hours. 01/19: more lucid today. concerned about risperidone weight gain. agrees to DC risperidone and try prolixin instead, starting at 2.5 BID. 01/20: very disorganized, bizarre, psychotic today. likely due to equivalent dosing of prolixin being given much lower than prior risperidone. as pt seems to be tolerating prolixin without issues, increase prolixin dosing from 2.5 BID to 5 BID. otherwise continue current mgmt. 01/21: less bizarre and disorganized, but still quite ill. variably compliant with medications. c/o leg pain, lowering self to floor; started cogentin 0.5 BID due to concern for dystonia. c/o nightmares, h/o prazosin with good effect. add prazosin 1 mg QHS as of tonight. 01/22: Patients states that she is good. She is scared of [place] herpes after having sex. She refused to participate in an interview with this provider, and walked away stating i don't need a provider. She was observed by this provider, pacing the [place]. Continue current treatment regimen. 01/23: disorganized and dangerous behaviors. voluntarily took IMs. court tomorrow. 01/24: remains disorganized. ran into staff member yesterday, postured and threatened other staff afterward. slept about 6.[address] this afternoon. 01/25/25: Staff 5 6 hours with broken sleep. Compliant with medication with lots of encouragement from yesterday, refused her vitamins in the morning. CT scan was negative, she fell early in the morning, witness her head hit the wall the trying to put her pants on. Slightly improved in mood with medication compliant. VPA level is 52,1 low side. However patient not consistently take it every day. We will recheck. He is on section 8. Pending Wei's order. Less irritable, less racing. 01/26/25: Mostly compliant with medication, to 250/750 mg of Depakote scheduled at bedtime. Labile, restless, poor boundaries, sexually inappropriate behavior, mood is aggravated . Disorganized. Slightly improving but not much. She is better in terms of compliant with medications. 01/27: mostly compliant with meds. improved from last week, more organized and less labile today. agreement reached on medications, reinstate risperidone as primary antipsychotic Tx, remove request for mood stabilizers, remove ativan. DC prolixin, begin taper of VPA, restart risperidone 2 BID, add thorazine 100 and valium 10 at HS to encourage sleep. awaiting med order. 01/28: last evening was pushing, attempting to kick and bite staff, shoulder-checked peer, exposing genitalia to 1:1 staff. took meds last night and this morning. court order received today, reviewed, medications adjusted to comply with order. reportedly more linear today, but pt declined to meet with MD after brief psychotic interaction with MD. 01/29: dysregulated, agitated behaviors continue last night. calmer days. refused VPA this morning. continue VPA taper, decrease from 500 BID to 250 TID as of today. increase HS seroquel from 300 mg to 400 mg as of tonight and HS valium from 10 mg to 15 mg as of tonight for sleep and sylwia. 01/30: same pattern of calm days through mid-afternoon, then decompensation. add third scheduled dosing of risperidone in the middle of the day, schedule valium in the morning and at 3 pm, otherwise continue current mgmt. increase HS seroquel if pt does not sleep more than several hours tonight. continue VPA taper tomorrow. 01/31: calm, morning. severe akathisia eves, unable to sleep or remain still. slept only 2.5 hours. due to 4 mg risperidone daily being inadequate to treat Sx and 6 mg causing severe akathisia, will DC risperidone in favor of a less potent antipsychotic, seroquel. schedule seroquel 100/100/500. taper VPA to 250 BID as of tomorrow. propranolol 20 TID started last night for akathisia, will continue for now. 02/01: no change - monitor akathisia decrease on new regimen 02/02: nicotine patch taper to 7 mg; seems to be doing better with switch to Seroquel and augmentation with Propranolol; primary team may f/u with further discussion of behavioral plan 02/03: much improved from last week. calm, linear, logical, topical. slept 6 hours each the last 3 nights. c/o sedation. decrease daytime valium from 5 BID to 2 BID. decrease daytime seroquel from 100 BID to 75 BID. taper VPA from 250 BID to 250 QHS. 02/04: remains much improved. no overt MSE abnormalities. c/o sedation, decrease seroquel from 75 BID to 50 BID and from 500 QHS to 400 QHS. DC VPA entirely. otherwise continue current mgmt. 02/05: backsliding today. irritable, erratic, more disorganized, labile. stating her intent to stop taking medications, demanding discharge. continue current mgmt. 02/06: much improved today. calm, logical, cogent and topical. pt would like to taper off of valium (addicting) and onto a proper mood stabilizer. legal support specialist notified. DC daytime valium. restart prazosin due to c/o nightmares. decrease propranolol from 20 TID to 10 TID (should no longer be necessary as off of medications likely to cause akathisia). DC daytime seroquel tomorrow. 02/07: similar conversation to yesterday. DC daytime seroquel. awaiting word from legal re adding lithium. otherwise continue current mgmt. 02/08: keeping to self. irritable edge. pt reports feeling overwhelmed d/t room change. medication compliant. focused on returning home. denies SI/HI/VH/AH. per nursing, slept 6 hours last night. continue current tx plan. 02/09: irritable edge. medication compliant. focused on returning home. intrusive during a peer's treatment; declined to walk away when asked by staff multiple times; poor insight and judgment. pt became upset after meeting with her mother; pt stated, my mom says its my behavior why I'm still here. I think they are keeping me here because I locked myself in that room . Valium decreased to 10mg PO bedtime. 02/10: irritable. medication compliant. Perseverative on discharge. Patient reports sleeping well last night. Appears calmer today. She reports visit with her mother when well. Denies SI/HI/VH/AH. Attending groups. Continue current treatment plan. 02/11/25: Irritable, irrational regarding why she is still being here. Poor insight and poor judgment. Not thinks she has bipolar. She only believes she has has ADHD and autism, therefore she does not need to be here and that no reason to keep her here longer. As a future, she does not think she going to continue taking medication after discharge per nursing. Racing thoughts. At times she is calm, able to attend groups, and some what appropriate. Have good visit with brother and mom yesterday. Not able to discuss for medication change due to agitated/irritable mood. Patient educated on: diagnosis, medication risk/benefits and therapeutic strategies Informed Consent: further education needed Reason for continued inpatient stay Substantial Risk for: med/psych decompensation Time Spent With Patient Time: Total time managing care of this patient today ____ minutes.
[2025-02-11 21:12] VITALS: BP 117/67; PULSE 75
[2025-02-12 08:00] VITALS: BP 85/46; PULSE 85; RESP 20; TEMP 36.8; O2SAT 97
[2025-02-12 10:08] VITALS: BP 138/63; PULSE 103
[2025-02-12 15:13] VITALS: BP 108/52; PULSE 81
[2025-02-12 15:15] VITALS: BP 108/52; PULSE 81
--- NOTE | 2025-02-12 17:09 | P.PNPSI_ITS ---
Subjective Subjective Date of Service: 02/12/25 Reason For Visit: Crisis Subjective Notes: Section 8 Healthcare Proxy: No Guardianship: No Medical Problems Affecting Mental Status: No Interim History: Medical record and nursing notes reviewed; case discussed during rounds with team/nursing staff, and met with patient for supportive therapy/psychoeducation, as well as medication management. Patient slept for 8 hours, was medication compliant. Taking it p.o.. Perseverative on discharge. Insists that she does not need to be here. That She is stable, and this is her baseline. She wants to be off f from Valium. She only believes that she has ADHD and autism. She does not want any change in terms of medication. Mom came in to visit, not happy that the patient is still here, does not believe she needs medication neither. Mother advocates for patient to be discharged. She also claimed that no treatment team members reach out to her. This provider touch base with the nurse who knows the patient, reports that he is not true. Nursing talk to her a couple of times during the visit in the past. Patient expressed that she wants family meeting. Both patient and mom does not believe she has whatever she diagnosed here. Some periods that she is very calm, and cooperative. However, the occupation of not wanting to be here, or do not need to be here makes her irritable, as some point feeling ear rationale. Poor insight. Family also needs education regarding mental illnesses. Medication Compliance: Yes Side effects from medications: No Attending Groups: Yes Review of Systems Acute medical concerns: No Medical Review of Systems: unchanged Review of Systems Review of Systems Constitutional: Denies fatigue and Denies fever(s) Cardiovascular: Denies chest pain and Denies dyspnea Respiratory: Denies dyspnea Gastrointestinal: Denies abdominal pain Psychiatric: denies suicidal ideation Endocrine: Denies fatigue Yes all other systems are reviewed and are negative Mental Status Exam Mental Status Exam Narrative: Appearance: adequately dressed and groomed Behavior: Irritable at times, demonstrate some patient moment. Speech: Hyperverbal especially when talking about being stuck in here TP: disorganized, irrational TC: Focused on discharge. Mood: Irritable Affect: Irritable at times. AH/VH: Denies Insight/judgment: Poor with mild improvement Memory/cog: improving. Diagnostics Vital Signs (24Hr): Vital Signs - 24 hr 02/11/25 21:12 02/12/25 08:00 02/12/25 10:08 Temperature 98.2 F Pulse Rate 75 85 103 H Respiratory Rate 20 Blood Pressure 117/67 85/46 L 138/63 Pulse Oximetry 97 Oxygen Delivery Method Room Air 02/12/25 15:13 02/12/25 15:15 Temperature Pulse Rate 81 81 Respiratory Rate Blood Pressure 108/52 L 108/52 L Pulse Oximetry Oxygen Delivery Method BMI result Body Mass Index 22.7 Labs 01/09/25 16:36 01/09/25 16:36 Imaging Radiology Impressions: ITS Impressions Hand X-Ray 01/16/25 11:30 IMPRESSION: Unremarkable right hand Electronically signed by: Casa Rush MD 01/16/2025 11:46 AM EDT RP Hand X-Ray 01/29/25 07:30 IMPRESSION: Unremarkable examination of the right hand. Electronically signed by: Obdulio Tolbert MD 01/30/2025 07:56 AM EDT RP Medications Medications Current Medications Acetaminophen (Acetaminophen 325 Mg Tablet) 650 mg PO Q6H PRN PRN Reason: Headache/Pain, Scale 1-10 Last Admin: 02/10/25 23:21 Dose: 650 mg Al Hydroxide/Mg Hydroxide (Magnesium Hydrox/Alum Hydrox 30 Ml Oral.Susp) 30 ml PO Q6H PRN PRN Reason: Heartburn/Nausea Last Admin: 01/30/25 14:06 Dose: 30 ml Artificial Tears (Artificial Tears 15 Ml Drops) 2 drop EYE-BOTH Q4H PRN PRN Reason: Dry Eyes Last Admin: 02/06/25 09:24 Dose: 2 drop Diazepam (Diazepam 5 Mg Tablet) 5 mg PO Q4H PRN PRN Reason: agitation Last Admin: 02/05/25 04:10 Dose: 5 mg Diazepam (Diazepam 10 Mg/2 Ml Cartridge) 5 mg IM TID PRN PRN Reason: refusal of seroquel or valium Last Admin: 02/04/25 20:13 Dose: 5 mg Diazepam (Diazepam 5 Mg Tablet) 10 mg PO BEDTIME VERONICA Last Admin: 02/11/25 21:16 Dose: 10 mg Docusate Sodium (Docusate Sodium 100 Mg Capsule) 100 mg PO BID PRN PRN Reason: Constipation Last Admin: 01/30/25 20:10 Dose: 100 mg Haloperidol Lactate (Haloperidol Lactate 5 Mg/Ml Vial) 5 mg IM TID PRN PRN Reason: refusal of scheduled seroquel Last Admin: 02/04/25 20:14 Dose: 5 mg Hydrocortisone (Hydrocortisone 2.5 % Rectal Cr 30 Gm Tube) 1 appl ME DAILY PRN PRN Reason: hemrroids Last Admin: 01/26/25 14:57 Dose: 1 appl Magnesium Hydroxide (Milk Of Magnesia 30 Ml Oral.Susp) 30 ml PO DAILY PRN PRN Reason: Constipation Last Admin: 01/26/25 14:59 Dose: 30 ml Multivitamins/Vitamin C (Multivitamin Tablet) 1 tab PO DAILY VERONICA Last Admin: 02/12/25 10:08 Dose: 1 tab Nicotine (Nicotine 7 Mg Patch.Td24) 7 mg TRANSDERMA DAILY VERONICA Last Admin: 02/12/25 10:10 Dose: Not Given Nicotine Polacrilex (Nicotine Polacrilex 2 Mg Gum) 4 mg BUCCAL Q2H PRN PRN Reason: Nicotine Cravings Last Admin: 01/30/25 18:46 Dose: 4 mg Polyethylene Glycol (Polyethylene Glycol 3350 17 Gm Powd.Pack) 17 gm PO DAILY PRN PRN Reason: constipation Prazosin HCl (Prazosin Hcl 1 Mg Capsule) 1 mg PO BEDTIME VERONICA; Protocol Last Admin: 02/11/25 21:16 Dose: 1 mg Propranolol HCl (Propranolol Hcl 10 Mg Tablet) 10 mg PO TID VERONICA; Protocol Last Admin: 02/12/25 15:13 Dose: Not Given Quetiapine Fumarate (Quetiapine Fumarate 400 Mg Tablet) 400 mg PO BEDTIME VERONICA Last Admin: 02/11/25 21:16 Dose: 400 mg Allergies Allergies Allergy/AdvReac Type Severity Reaction Status Date / Time olanzapine (From Zyprexa) AdvReac Rash Verified 12/31/24 18:41 Assessment & Plan Assessment & Plan (1) Psychosis: Status: Acute Code(s): F29 - Unspecified psychosis not due to a substance or known physiological condition Plan Ms. Sheridan is a 34 year-old woman who presents with s/s of psychosis, disorganized, some degree of paranoia. She had similar episode back in 2020. 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 I do suspect that there may be underlying psychiatric disorder that is triggered by amphetamine use but not necessarily caused by it. Further evaluation to clarify dx is needed. We discussed inpt level of care. We also discussed restarting risperidone 1mg po BID. low dose clonazepam. continue clonidine. 1. IPLOC 2. start risperidone 1mg po BID. Clonazepam 0.5mg po BID. 01/05: Continue current regimen and plans. 01/06: slept only 2 hours, disorganized, decompensated behaviors. unable to interact cogently. refusing risperidone, will offer seroquel instead. possible bipolar diathesis, T/C mood stabilizer. delirium also a possibility, as the mental status change since admission appears to be striking. 01/07: took seroquel 200 last night, slept 5.5 hours. more organized, linear, able to engage today. continue current mgmt. 01/08: refused seroquel last NOC, slept only 30 minutes. agitated, bizarre, disorganized today. commitment paperwork filed. 01/09: refused meds yesterday but got IMs due to behaviors (outbursts, touching peers, yelling, banging doors, pushed her sitter, climbing on tables and chairs. threatening to stab self with pens). more linear and engageable today, once again the day after having takenm medication. agrees to continue to take seroquel 200 mg QHS. 01/10: took seroquel last NOC and slept 4 hours overnight, but bizarre today. less agitation and intrusiveness than yesterday, but still bizarre and fairly intrusive. pt appears willing to take risperidone, will DC seroquel and return to dosing of risperidone 2 mg BID. took first dose this afternoon. court next monday. 01/11 very paranoid, fearful, taking medications 01/12 continue tx. 01/13: appears a bit more organized today than when not taking medications, although slow and processing poorly. declines to sign CV. commitment hearing tomorrow. 01/14: hearing continued until 01/24 for SINDY. add klonopin 0.5 BID ODT, change risperidone formulation to liquid (pt has been inducing vomiting repeatedly with toothbrush). hold toothbrush unless actively brushing teeth. continues interactive to some extent with MD today, but has been grabbing badges, touching others, and tried to vault into the nursing station in the past 24H. 01/15: IM medication after threatening to punch member of technical staff with intrusive and aggressive behaviors toward peers. pt did not take klonopin as ordered yesterday. DC klonopin and start VPA 500 BID. per staff, running. tried to make herself vomit after taking PRN. labile. ate her feces in the shower and tried to feed it to her 1:1. crawling under tables. tried to jump into nurses station x2. took her shirt off and swinging it around. did not sleep at all. slept at 7:30am. 01/16: refusing VPA, taking risperidone. napped after IMs yesterday. has been bizarre and labile since. slept only 2 hours overnight. continue current mgmt. 01/17: agitated, bizarre, and aggressive behaviors yesterday (punching and kicking beard, stripping off in milieu, attempting to intimidate staff, grabbing stress balls out of staff's hands). did take VPA this morning on its being offered a second time. more calm today. taking risperidone. 01/18: intermittently refusing VPA, seems to be taking risperidone. asks MD if he is alive, then proposes elbow bump. accusing staff of stealing her things (phone), calling mother and fire equipment operator in the middle of the night. slept less than 4 hours. 01/19: more lucid today. concerned about risperidone weight gain. agrees to DC risperidone and try prolixin instead, starting at 2.5 BID. 01/20: very disorganized, bizarre, psychotic today. likely due to equivalent dosing of prolixin being given much lower than prior risperidone. as pt seems to be tolerating prolixin without issues, increase prolixin dosing from 2.5 BID to 5 BID. otherwise continue current mgmt. 01/21: less bizarre and disorganized, but still quite ill. variably compliant with medications. c/o leg pain, lowering self to floor; started cogentin 0.5 BID due to concern for dystonia. c/o nightmares, h/o prazosin with good effect. add prazosin 1 mg QHS as of tonight. 01/22: Patients states that she is good. She is scared of [place] herpes after having sex. She refused to participate in an interview with this provider, and walked away stating i don't need a provider. She was observed by this provider, pacing the [place]. Continue current treatment regimen. 01/23: disorganized and dangerous behaviors. voluntarily took IMs. court tomorrow. 01/24: remains disorganized. ran into staff member yesterday, postured and threatened other staff afterward. slept about 6.[address] this afternoon. 01/25/25: Staff 5 6 hours with broken sleep. Compliant with medication with lots of encouragement from yesterday, refused her vitamins in the morning. CT scan was negative, she fell early in the morning, witness her head hit the wall the trying to put her pants on. Slightly improved in mood with medication compliant. VPA level is 52,1 low side. However patient not consistently take it every day. We will recheck. He is on section 8. Pending Wei's order. Less irritable, less racing. 01/26/25: Mostly compliant with medication, to 250/750 mg of Depakote scheduled at bedtime. Labile, restless, poor boundaries, sexually inappropriate behavior, mood is aggravated . Disorganized. Slightly improving but not much. She is better in terms of compliant with medications. 01/27: mostly compliant with meds. improved from last week, more organized and less labile today. agreement reached on medications, reinstate risperidone as primary antipsychotic Tx, remove request for mood stabilizers, remove ativan. DC prolixin, begin taper of VPA, restart risperidone 2 BID, add thorazine 100 and valium 10 at HS to encourage sleep. awaiting med order. 01/28: last evening was pushing, attempting to kick and bite staff, shoulder- checked peer, exposing genitalia to 1:1 staff. took meds last night and this morning. court order received today, reviewed, medications adjusted to comply with order. reportedly more linear today, but pt declined to meet with MD after brief psychotic interaction with MD. 01/29: dysregulated, agitated behaviors continue last night. calmer days. refused VPA this morning. continue VPA taper, decrease from 500 BID to 250 TID as of today. increase HS seroquel from 300 mg to 400 mg as of tonight and HS valium from 10 mg to 15 mg as of tonight for sleep and sylwia. 01/30: same pattern of calm days through mid-afternoon, then decompensation. add third scheduled dosing of risperidone in the middle of the day, schedule valium in the morning and at 3 pm, otherwise continue current mgmt. increase HS seroquel if pt does not sleep more than several hours tonight. continue VPA taper tomorrow. 01/31: calm, morning. severe akathisia eves, unable to sleep or remain still. slept only 2.5 hours. due to 4 mg risperidone daily being inadequate to treat Sx and 6 mg causing severe akathisia, will DC risperidone in favor of a less potent antipsychotic, seroquel. schedule seroquel 100/100/500. taper VPA to 250 BID as of tomorrow. propranolol 20 TID started last night for akathisia, will continue for now. 02/01: no change - monitor akathisia decrease on new regimen 02/02: nicotine patch taper to 7 mg; seems to be doing better with switch to Seroquel and augmentation with Propranolol; primary team may f/u with further discussion of behavioral plan 02/03: much improved from last week. calm, linear, logical, topical. slept 6 hours each the last 3 nights. c/o sedation. decrease daytime valium from 5 BID to 2 BID. decrease daytime seroquel from 100 BID to 75 BID. taper VPA from 250 BID to 250 QHS. 02/04: remains much improved. no overt MSE abnormalities. c/o sedation, decrease seroquel from 75 BID to 50 BID and from 500 QHS to 400 QHS. DC VPA entirely. otherwise continue current mgmt. 02/05: backsliding today. irritable, erratic, more disorganized, labile. stating her intent to stop taking medications, demanding discharge. continue current mgmt. 02/06: much improved today. calm, logical, cogent and topical. pt would like to taper off of valium (addicting) and onto a proper mood stabilizer. admissions counselor notified. DC daytime valium. restart prazosin due to c/o nightmares. decrease propranolol from 20 TID to 10 TID (should no longer be necessary as off of medications likely to cause akathisia). DC daytime seroquel tomorrow. 02/07: similar conversation to yesterday. DC daytime seroquel. awaiting word from legal re adding lithium. otherwise continue current mgmt. 02/08: keeping to self. irritable edge. pt reports feeling overwhelmed d/t room change. medication compliant. focused on returning home. denies SI/HI/VH/AH. per nursing, slept 6 hours last night. continue current tx plan. 02/09: irritable edge. medication compliant. focused on returning home. intrusive during a peer's treatment; declined to walk away when asked by staff multiple times; poor insight and judgment. pt became upset after meeting with her mother; pt stated, my mom says its my behavior why I'm still here. I think they are keeping me here because I locked myself in that room . Valium decreased to 10mg PO bedtime. 02/10: irritable. medication compliant. Perseverative on discharge. Patient reports sleeping well last night. Appears calmer today. She reports visit with her mother when well. Denies SI/HI/VH/AH. Attending groups. Continue current treatment plan. 02/11/25: Irritable, irrational regarding why she is still being here. Poor insight and poor judgment. Not thinks she has bipolar. She only believes she has has ADHD and autism, therefore she does not need to be here and that no reason to keep her here longer. As a future, she does not think she going to continue taking medication after discharge per nursing. Racing thoughts. At times she is calm, able to attend groups, and some what appropriate. Have good visit with brother and mom yesterday. Not able to discuss for medication change due to agitated/irritable mood. 02/12/25: Been sleeping well, no issue with appetite, attended groups, have visit with mom. Both mom and patient the nurse believe that patient is not manic or having any bipolar features. They only believe that she has ADHD and autism. Mom advocate for patient to be discharged. Mom claims that the treatment team has not ever reach out to her. Both of the agree to have a family meeting in the future. We will leave message to the team to set it up. Patient has some mood swing, but overall, continued to improve with help of the medication. She wants to be off from Valium, but do not want any other medication change. Both Seroquel and Valium is on [facility] order. No other safety concerns. Patient educated on: diagnosis, medication risk/benefits and therapeutic strategies Guardian/Caregiver educated on: diagnosis, medication risk/benefits and therapeutic strategies Informed Consent: further education needed Reason for continued inpatient stay Substantial Risk for: med/psych decompensation Time Spent With Patient Time: Total time managing care of this patient today ____ minutes.
[2025-02-12 20:00] VITALS: BP 125/68; PULSE 89; RESP 16; TEMP 36.4; O2SAT 95
[2025-02-13 07:00] VITALS: BMI 23.2
[2025-02-13 08:36] VITALS: BP 113/62; PULSE 113; RESP 16; TEMP 36.2; O2SAT 94
[2025-02-13 20:00] VITALS: BP 110/62; PULSE 96; RESP 16; TEMP 36.4; O2SAT 96
--- NOTE | 2025-02-13 22:30 | HO.PSYCHPN ---
Subjective Subjective Date of Service: 02/13/25 Reason For Visit: Crisis Subjective Notes: Section 8 Healthcare Proxy: No Guardianship: No Medical Problems Affecting Mental Status: No Interim History: Medical record and nursing notes reviewed; case discussed during rounds with team/nursing staff, and met with patient for supportive therapy/psychoeducation, as well as medication management. Slept well, been eating good. Irritable attempt, continued to ask if she can go/discharge. Requests Xanax when she got angry. When meet with this patient, she said I am just asked for Xanax because of am a bitch . they give me medication that I make me addicted to and messed up with my mind . Clarified that outpatient provider. She is confirmed that the treatment rn team leader-child welfare social worker has been talk to her mom a numerous of time. She denies other safety concern. Continued to be anxious irritable being here. However visible and attempted groups, some labile mood Medication Compliance: Yes (Except nicotine patch) Side effects from medications: No Attending Groups: Yes Review of Systems Acute medical concerns: No Medical Review of Systems: unchanged Review of Systems Review of Systems Constitutional: Denies fatigue and Denies fever(s) Cardiovascular: Denies chest pain and Denies dyspnea Respiratory: Denies dyspnea Gastrointestinal: Denies abdominal pain Psychiatric: denies suicidal ideation Endocrine: Denies fatigue Yes all other systems are reviewed and are negative Mental Status Exam Mental Status Exam Narrative: Appearance: adequately dressed and groomed Behavior: Irritable at times, demonstrate some patient moment. Speech: Hyperverbal especially when talking about being stuck in here TP: disorganized, irrational TC: Focused on discharge. Mood: Irritable Affect: Irritable at times. AH/VH: Denies Insight/judgment: Poor with mild improvement Memory/cog: improving. Diagnostics Vital Signs (24Hr): Vital Signs - 24 hr 02/13/25 08:36 02/13/25 20:00 Temperature 97.2 F 97.5 F Pulse Rate 113 H 96 Respiratory Rate 16 16 Blood Pressure 113/62 110/62 Pulse Oximetry 94 96 Oxygen Delivery Method Room Air Room Air BMI result Body Mass Index 23.2 Labs 01/09/25 16:36 01/09/25 16:36 Imaging Radiology Impressions: ITS Impressions Hand X-Ray 01/16/25 11:30 IMPRESSION: Unremarkable right hand Electronically signed by: Casa Rush MD 01/16/2025 11:46 AM EDT RP Hand X-Ray 01/29/25 07:30 IMPRESSION: Unremarkable examination of the right hand. Electronically signed by: Obdulio Tolbert MD 01/30/2025 07:56 AM EDT RP Medications Medications Current Medications Acetaminophen (Acetaminophen 325 Mg Tablet) 650 mg PO Q6H PRN PRN Reason: Headache/Pain, Scale 1-10 Last Admin: 02/10/25 23:21 Dose: 650 mg Al Hydroxide/Mg Hydroxide (Magnesium Hydrox/Alum Hydrox 30 Ml Oral.Susp) 30 ml PO Q6H PRN PRN Reason: Heartburn/Nausea Last Admin: 01/30/25 14:06 Dose: 30 ml Artificial Tears (Artificial Tears 15 Ml Drops) 2 drop EYE-BOTH Q4H PRN PRN Reason: Dry Eyes Last Admin: 02/06/25 09:24 Dose: 2 drop Diazepam (Diazepam 5 Mg Tablet) 5 mg PO Q4H PRN PRN Reason: agitation Last Admin: 02/05/25 04:10 Dose: 5 mg Diazepam (Diazepam 10 Mg/2 Ml Cartridge) 5 mg IM TID PRN PRN Reason: refusal of seroquel or valium Last Admin: 02/04/25 20:13 Dose: 5 mg Diazepam (Diazepam 5 Mg Tablet) 10 mg PO BEDTIME VERONICA Last Admin: 02/13/25 20:53 Dose: 10 mg Docusate Sodium (Docusate Sodium 100 Mg Capsule) 100 mg PO BID PRN PRN Reason: Constipation Last Admin: 01/30/25 20:10 Dose: 100 mg Haloperidol Lactate (Haloperidol Lactate 5 Mg/Ml Vial) 5 mg IM TID PRN PRN Reason: refusal of scheduled seroquel Last Admin: 02/04/25 20:14 Dose: 5 mg Hydrocortisone (Hydrocortisone 2.5 % Rectal Cr 30 Gm Tube) 1 appl ME DAILY PRN PRN Reason: hemrroids Last Admin: 01/26/25 14:57 Dose: 1 appl Magnesium Hydroxide (Milk Of Magnesia 30 Ml Oral.Susp) 30 ml PO DAILY PRN PRN Reason: Constipation Last Admin: 01/26/25 14:59 Dose: 30 ml Multivitamins/Vitamin C (Multivitamin Tablet) 1 tab PO DAILY VERONICA Last Admin: 02/13/25 08:39 Dose: 1 tab Nicotine (Nicotine 7 Mg Patch.Td24) 7 mg TRANSDERMA DAILY VERONICA Last Admin: 02/13/25 08:53 Dose: Not Given Nicotine Polacrilex (Nicotine Polacrilex 2 Mg Gum) 4 mg BUCCAL Q2H PRN PRN Reason: Nicotine Cravings Last Admin: 01/30/25 18:46 Dose: 4 mg Polyethylene Glycol (Polyethylene Glycol 3350 17 Gm Powd.Pack) 17 gm PO DAILY PRN PRN Reason: constipation Prazosin HCl (Prazosin Hcl 1 Mg Capsule) 1 mg PO BEDTIME VERONICA; Protocol Last Admin: 02/13/25 20:54 Dose: 1 mg Propranolol HCl (Propranolol Hcl 10 Mg Tablet) 10 mg PO TID VERONICA; Protocol Last Admin: 02/13/25 20:53 Dose: 10 mg Quetiapine Fumarate (Quetiapine Fumarate 400 Mg Tablet) 400 mg PO BEDTIME VERONICA Last Admin: 02/13/25 20:54 Dose: 400 mg Allergies Allergies Allergy/AdvReac Type Severity Reaction Status Date / Time olanzapine (From Zyprexa) AdvReac Rash Verified 12/31/24 18:41 Assessment & Plan Assessment & Plan (1) Psychosis: Status: Acute Code(s): F29 - Unspecified psychosis not due to a substance or known physiological condition Plan Ms. Sheridan is a 34 year-old woman who presents with s/s of psychosis, disorganized, some degree of paranoia. She had similar episode back in 2020. 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 I do suspect that there may be underlying psychiatric disorder that is triggered by amphetamine use but not necessarily caused by it. Further evaluation to clarify dx is needed. We discussed inpt level of care. We also discussed restarting risperidone 1mg po BID. low dose clonazepam. continue clonidine. 1. IPLOC 2. start risperidone 1mg po BID. Clonazepam 0.5mg po BID. 01/05: Continue current regimen and plans. 01/06: slept only 2 hours, disorganized, decompensated behaviors. unable to interact cogently. refusing risperidone, will offer seroquel instead. possible bipolar diathesis, T/C mood stabilizer. delirium also a possibility, as the mental status change since admission appears to be striking. 01/07: took seroquel 200 last night, slept 5.5 hours. more organized, linear, able to engage today. continue current mgmt. 01/08: refused seroquel last NOC, slept only 30 minutes. agitated, bizarre, disorganized today. commitment paperwork filed. 01/09: refused meds yesterday but got IMs due to behaviors (outbursts, touching peers, yelling, banging doors, pushed her sitter, climbing on tables and chairs. threatening to stab self with pens). more linear and engageable today, once again the day after having takenm medication. agrees to continue to take seroquel 200 mg QHS. 01/10: took seroquel last NOC and slept 4 hours overnight, but bizarre today. less agitation and intrusiveness than yesterday, but still bizarre and fairly intrusive. pt appears willing to take risperidone, will DC seroquel and return to dosing of risperidone 2 mg BID. took first dose this afternoon. court next monday. 01/11 very paranoid, fearful, taking medications 01/12 continue tx. 01/13: appears a bit more organized today than when not taking medications, although slow and processing poorly. declines to sign CV. commitment hearing tomorrow. 01/14: hearing continued until 01/24 for SINDY. add klonopin 0.5 BID ODT, change risperidone formulation to liquid (pt has been inducing vomiting repeatedly with toothbrush). hold toothbrush unless actively brushing teeth. continues interactive to some extent with MD today, but has been grabbing badges, touching others, and tried to vault into the nursing station in the past 24H. 01/15: IM medication after threatening to punch aoc [employer] operations staff officer with intrusive and aggressive behaviors toward peers. pt did not take klonopin as ordered yesterday. DC klonopin and start VPA 500 BID. per staff, running. tried to make herself vomit after taking PRN. labile. ate her feces in the shower and tried to feed it to her 1:1. crawling under tables. tried to jump into nurses station x2. took her shirt off and swinging it around. did not sleep at all. slept at 7:30am. 01/16: refusing VPA, taking risperidone. napped after IMs yesterday. has been bizarre and labile since. slept only 2 hours overnight. continue current mgmt. 01/17: agitated, bizarre, and aggressive behaviors yesterday (punching and kicking beard, stripping off in milieu, attempting to intimidate staff, grabbing stress balls out of staff's hands). did take VPA this morning on its being offered a second time. more calm today. taking risperidone. 01/18: intermittently refusing VPA, seems to be taking risperidone. asks MD if he is alive, then proposes elbow bump. accusing staff of stealing her things (phone), calling mother and surg tech in the middle of the night. slept less than 4 hours. 01/19: more lucid today. concerned about risperidone weight gain. agrees to DC risperidone and try prolixin instead, starting at 2.5 BID. 01/20: very disorganized, bizarre, psychotic today. likely due to equivalent dosing of prolixin being given much lower than prior risperidone. as pt seems to be tolerating prolixin without issues, increase prolixin dosing from 2.5 BID to 5 BID. otherwise continue current mgmt. 01/21: less bizarre and disorganized, but still quite ill. variably compliant with medications. c/o leg pain, lowering self to floor; started cogentin 0.5 BID due to concern for dystonia. c/o nightmares, h/o prazosin with good effect. add prazosin 1 mg QHS as of tonight. 01/22: Patients states that she is good. She is scared of [place] herpes after having sex. She refused to participate in an interview with this provider, and walked away stating i don't need a provider. She was observed by this provider, pacing the [place]. Continue current treatment regimen. 01/23: disorganized and dangerous behaviors. voluntarily took IMs. court tomorrow. 01/24: remains disorganized. ran into staff member yesterday, postured and threatened other staff afterward. slept about 6.[address] afternoon. 01/25/25: Staff 5 6 hours with broken sleep. Compliant with medication with lots of encouragement from yesterday, refused her vitamins in the morning. CT scan was negative, she fell early in the morning, witness her head hit the wall the trying to put her pants on. Slightly improved in mood with medication compliant. VPA level is 52,1 low side. However patient not consistently take it every day. We will recheck. He is on section 8. Pending Wei's order. Less irritable, less racing. 01/26/25: Mostly compliant with medication, to 250/750 mg of Depakote scheduled at bedtime. Labile, restless, poor boundaries, sexually inappropriate behavior, mood is aggravated . Disorganized. Slightly improving but not much. She is better in terms of compliant with medications. 01/27: mostly compliant with meds. improved from last week, more organized and less labile today. agreement reached on medications, reinstate risperidone as primary antipsychotic Tx, remove request for mood stabilizers, remove ativan. DC prolixin, begin taper of VPA, restart risperidone 2 BID, add thorazine 100 and valium 10 at HS to encourage sleep. awaiting med order. 01/28: last evening was pushing, attempting to kick and bite staff, shoulder-checked peer, exposing genitalia to 1:1 staff. took meds last night and this morning. court order received today, reviewed, medications adjusted to comply with order. reportedly more linear today, but pt declined to meet with MD after brief psychotic interaction with MD. 01/29: dysregulated, agitated behaviors continue last night. calmer days. refused VPA this morning. continue VPA taper, decrease from 500 BID to 250 TID as of today. increase HS seroquel from 300 mg to 400 mg as of tonight and HS valium from 10 mg to 15 mg as of tonight for sleep and sylwia. 01/30: same pattern of calm days through mid-afternoon, then decompensation. add third scheduled dosing of risperidone in the middle of the day, schedule valium in the morning and at 3 pm, otherwise continue current mgmt. increase HS seroquel if pt does not sleep more than several hours tonight. continue VPA taper tomorrow. 01/31: calm, morning. severe akathisia eves, unable to sleep or remain still. slept only 2.5 hours. due to 4 mg risperidone daily being inadequate to treat Sx and 6 mg causing severe akathisia, will DC risperidone in favor of a less potent antipsychotic, seroquel. schedule seroquel 100/100/500. taper VPA to 250 BID as of tomorrow. propranolol 20 TID started last night for akathisia, will continue for now. 02/01: no change - monitor akathisia decrease on new regimen 02/02: nicotine patch taper to 7 mg; seems to be doing better with switch to Seroquel and augmentation with Propranolol; primary team may f/u with further discussion of behavioral plan 02/03: much improved from last week. calm, linear, logical, topical. slept 6 hours each the last 3 nights. c/o sedation. decrease daytime valium from 5 BID to 2 BID. decrease daytime seroquel from 100 BID to 75 BID. taper VPA from 250 BID to 250 QHS. 02/04: remains much improved. no overt MSE abnormalities. c/o sedation, decrease seroquel from 75 BID to 50 BID and from 500 QHS to 400 QHS. DC VPA entirely. otherwise continue current mgmt. 02/05: backsliding today. irritable, erratic, more disorganized, labile. stating her intent to stop taking medications, demanding discharge. continue current mgmt. 02/06: much improved today. calm, logical, cogent and topical. pt would like to taper off of valium (addicting) and onto a proper mood stabilizer. executive legal secretary notified. DC daytime valium. restart prazosin due to c/o nightmares. decrease propranolol from 20 TID to 10 TID (should no longer be necessary as off of medications likely to cause akathisia). DC daytime seroquel tomorrow. 02/07: similar conversation to yesterday. DC daytime seroquel. awaiting word from legal re adding lithium. otherwise continue current mgmt. 02/08: keeping to self. irritable edge. pt reports feeling overwhelmed d/t room change. medication compliant. focused on returning home. denies SI/HI/VH/AH. per nursing, slept 6 hours last night. continue current tx plan. 02/09: irritable edge. medication compliant. focused on returning home. intrusive during a peer's treatment; declined to walk away when asked by staff multiple times; poor insight and judgment. pt became upset after meeting with her mother; pt stated, my mom says its my behavior why I'm still here. I think they are keeping me here because I locked myself in that room . Valium decreased to 10mg PO bedtime. 02/10: irritable. medication compliant. Perseverative on discharge. Patient reports sleeping well last night. Appears calmer today. She reports visit with her mother when well. Denies SI/HI/VH/AH. Attending groups. Continue current treatment plan. 02/11/25: Irritable, irrational regarding why she is still being here. Poor insight and poor judgment. Not thinks she has bipolar. She only believes she has has ADHD and autism, therefore she does not need to be here and that no reason to keep her here longer. As a future, she does not think she going to continue taking medication after discharge per nursing. Racing thoughts. At times she is calm, able to attend groups, and some what appropriate. Have good visit with brother and mom yesterday. Not able to discuss for medication change due to agitated/irritable mood. 02/12/25: Been sleeping well, no issue with appetite, attended groups, have visit with mom. Both mom and patient the nurse believe that patient is not manic or having any bipolar features. They only believe that she has ADHD and autism. Mom advocate for patient to be discharged. Mom claims that the treatment team has not ever reach out to her. Both of the agree to have a family meeting in the future. We will leave message to the team to set it up. Patient has some mood swing, but overall, continued to improve with help of the medication. She wants to be off from Valium, but do not want any other medication change. Both Seroquel and Valium is on [facility] order. No other safety concerns. 02/13/25: Slept well, compliant with medications, refused nicotine patch on. Observed visible and attending groups, irritable at times, hyper focused on discharge as her normal baseline of everyday. Do not want any medication change. Reports gaining 28 lb since she got here. Nutrition consult placed. We will add Adderall on allergy list which make her psychotic. Patient to nursing put it in her allergy list. Some labile mood, pressured speech. Patient educated on: diagnosis, medication risk/benefits and therapeutic strategies Informed Consent: further education needed Reason for continued inpatient stay Substantial Risk for: med/psych decompensation Time Spent With Patient Time: Total time managing care of this patient today ____ minutes.
[2025-02-14 07:37] VITALS: BP 113/71; PULSE 96; RESP 16; TEMP 36.4; O2SAT 97
--- NOTE | 2025-02-14 10:21 | P.PNPSI_ITS ---
Subjective Subjective Date of Service: 02/14/25 Reason For Visit: Crisis Subjective Notes: Section 8 Interim History: Active on unit. social with peers. attending groups. focused on losing weight and eating healthy. labile. irritable edge. Patient stated she is upset with the psychiatrist d/t diagnosing me with the wrong diagnosis and he's not even my psychiatrist . pt abruptly ended conversation and stated she wants to speak with Dr. Franklin. Medication Compliance: Intermittent Side effects from medications: No Attending Groups: Yes Mental Status Exam Mental Status Exam Patient Appearance: Appropriate Patient Orientation: Person, Place, Time and Situation Level of Consciousness: Awake and Alert Patient Behavior: Talkative, Cooperative and Anxious Mood Description: Labile Affect Description: Labile Ability to Follow Directions: Good Speech Pattern: Clear Hallucinations: None Delusions: Not Present Thought Process: Rumination Thought Content: positive for Perseveration Diagnostics Vital Signs (24Hr): Vital Signs - 24 hr 02/13/25 20:00 02/14/25 07:37 Temperature 97.5 F 97.6 F Pulse Rate 96 96 Respiratory Rate 16 16 Blood Pressure 110/62 113/71 Pulse Oximetry 96 97 Oxygen Delivery Method Room Air Room Air BMI result Body Mass Index 23.2 Labs 01/09/25 16:36 01/09/25 16:36 Imaging Radiology Impressions: ITS Impressions Hand X-Ray 01/16/25 11:30 IMPRESSION: Unremarkable right hand Electronically signed by: Casa Rush MD 01/16/2025 11:46 AM EDT RP Hand X-Ray 01/29/25 07:30 IMPRESSION: Unremarkable examination of the right hand. Electronically signed by: Obdulio Tolbert MD 01/30/2025 07:56 AM EDT RP Medications Medications Current Medications Acetaminophen (Acetaminophen 325 Mg Tablet) 650 mg PO Q6H PRN PRN Reason: Headache/Pain, Scale 1-10 Last Admin: 02/10/25 23:21 Dose: 650 mg Al Hydroxide/Mg Hydroxide (Magnesium Hydrox/Alum Hydrox 30 Ml Oral.Susp) 30 ml PO Q6H PRN PRN Reason: Heartburn/Nausea Last Admin: 01/30/25 14:06 Dose: 30 ml Artificial Tears (Artificial Tears 15 Ml Drops) 2 drop EYE-BOTH Q4H PRN PRN Reason: Dry Eyes Last Admin: 02/06/25 09:24 Dose: 2 drop Diazepam (Diazepam 5 Mg Tablet) 5 mg PO Q4H PRN PRN Reason: agitation Last Admin: 02/05/25 04:10 Dose: 5 mg Diazepam (Diazepam 10 Mg/2 Ml Cartridge) 5 mg IM TID PRN PRN Reason: refusal of seroquel or valium Last Admin: 02/04/25 20:13 Dose: 5 mg Diazepam (Diazepam 5 Mg Tablet) 10 mg PO BEDTIME VERONICA Last Admin: 02/13/25 20:53 Dose: 10 mg Docusate Sodium (Docusate Sodium 100 Mg Capsule) 100 mg PO BID PRN PRN Reason: Constipation Last Admin: 01/30/25 20:10 Dose: 100 mg Haloperidol Lactate (Haloperidol Lactate 5 Mg/Ml Vial) 5 mg IM TID PRN PRN Reason: refusal of scheduled seroquel Last Admin: 02/04/25 20:14 Dose: 5 mg Hydrocortisone (Hydrocortisone 2.5 % Rectal Cr 30 Gm Tube) 1 appl ID DAILY PRN PRN Reason: hemrroids Last Admin: 01/26/25 14:57 Dose: 1 appl Magnesium Hydroxide (Milk Of Magnesia 30 Ml Oral.Susp) 30 ml PO DAILY PRN PRN Reason: Constipation Last Admin: 01/26/25 14:59 Dose: 30 ml Multivitamins/Vitamin C (Multivitamin Tablet) 1 tab PO DAILY VERONICA Last Admin: 02/14/25 09:50 Dose: 1 tab Nicotine (Nicotine 7 Mg Patch.Td24) 7 mg TRANSDERMA DAILY VERONICA Last Admin: 02/14/25 08:41 Dose: Not Given Nicotine Polacrilex (Nicotine Polacrilex 2 Mg Gum) 4 mg BUCCAL Q2H PRN PRN Reason: Nicotine Cravings Last Admin: 01/30/25 18:46 Dose: 4 mg Polyethylene Glycol (Polyethylene Glycol 3350 17 Gm Powd.Pack) 17 gm PO DAILY PRN PRN Reason: constipation Prazosin HCl (Prazosin Hcl 1 Mg Capsule) 1 mg PO BEDTIME VERONICA; Protocol Last Admin: 02/13/25 20:54 Dose: 1 mg Propranolol HCl (Propranolol Hcl 10 Mg Tablet) 10 mg PO TID [facility]; Protocol Last Admin: 02/14/25 08:40 Dose: Not Given Quetiapine Fumarate (Quetiapine Fumarate 400 Mg Tablet) 400 mg PO BEDTIME VERONICA Last Admin: 02/13/25 20:54 Dose: 400 mg Allergies Allergies Allergy/AdvReac Type Severity Reaction Status Date / Time amphetamine (From Adderall) Allergy Severe psychosis/ Verified 02/13/25 22:40 Manic dextroamphetamine (From Allergy Severe psychosis/ Verified 02/13/25 22:40 Adderall) Manic olanzapine (From Zyprexa) AdvReac Rash Verified 12/31/24 18:41 Assessment & Plan Assessment & Plan (1) Psychosis: Status: Acute Code(s): F29 - Unspecified psychosis not due to a substance or known physiological condition Plan Ms. Sheridan is a 34 year-old woman who presents with s/s of psychosis, disorganized, some degree of paranoia. She had similar episode back in 2020. 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 I do suspect that there may be underlying psychiatric disorder that is triggered by amphetamine use but not necessarily caused by it. Further evaluation to clarify dx is needed. We discussed inpt level of care. We also discussed restarting risperidone 1mg po BID. low dose clonazepam. continue clonidine. 1. IPLOC 2. start risperidone 1mg po BID. Clonazepam 0.5mg po BID. 01/05: Continue current regimen and plans. 01/06: slept only 2 hours, disorganized, decompensated behaviors. unable to interact cogently. refusing risperidone, will offer seroquel instead. possible bipolar diathesis, T/C mood stabilizer. delirium also a possibility, as the mental status change since admission appears to be striking. 01/07: took seroquel 200 last night, slept 5.5 hours. more organized, linear, able to engage today. continue current mgmt. 01/08: refused seroquel last NOC, slept only 30 minutes. agitated, bizarre, disorganized today. commitment paperwork filed. 01/09: refused meds yesterday but got IMs due to behaviors (outbursts, touching peers, yelling, banging doors, pushed her sitter, climbing on tables and chairs. threatening to stab self with pens). more linear and engageable today, once again the day after having takenm medication. agrees to continue to take seroquel 200 mg QHS. 01/10: took seroquel last NOC and slept 4 hours overnight, but bizarre today. less agitation and intrusiveness than yesterday, but still bizarre and fairly intrusive. pt appears willing to take risperidone, will DC seroquel and return to dosing of risperidone 2 mg BID. took first dose this afternoon. court next monday. 01/11 very paranoid, fearful, taking medications 01/12 continue tx. 01/13: appears a bit more organized today than when not taking medications, although slow and processing poorly. declines to sign CV. commitment hearing tomorrow. 01/14: hearing continued until 01/24 for SINDY. add klonopin 0.5 BID ODT, change risperidone formulation to liquid (pt has been inducing vomiting repeatedly with toothbrush). hold toothbrush unless actively brushing teeth. continues interactive to some extent with MD today, but has been grabbing badges, touching others, and tried to vault into the nursing station in the past 24H. 01/15: IM medication after threatening to punch staff mine warfare officer with intrusive and aggressive behaviors toward peers. pt did not take klonopin as ordered yesterday. DC klonopin and start VPA 500 BID. per staff, running. tried to make herself vomit after taking PRN. labile. ate her feces in the shower and tried to feed it to her 1:1. crawling under tables. tried to jump into nurses station x2. took her shirt off and swinging it around. did not sleep at all. slept at 7:30am. 01/16: refusing VPA, taking risperidone. napped after IMs yesterday. has been bizarre and labile since. slept only 2 hours overnight. continue current mgmt. 01/17: agitated, bizarre, and aggressive behaviors yesterday (punching and kicking beard, stripping off in milieu, attempting to intimidate staff, grabbing stress balls out of staff's hands). did take VPA this morning on its being offered a second time. more calm today. taking risperidone. 01/18: intermittently refusing VPA, seems to be taking risperidone. asks MD if he is alive, then proposes elbow bump. accusing staff of stealing her things (phone), calling mother and jewel hole driller in the middle of the night. slept less than 4 hours. 01/19: more lucid today. concerned about risperidone weight gain. agrees to DC risperidone and try prolixin instead, starting at 2.5 BID. 01/20: very disorganized, bizarre, psychotic today. likely due to equivalent dosing of prolixin being given much lower than prior risperidone. as pt seems to be tolerating prolixin without issues, increase prolixin dosing from 2.5 BID to 5 BID. otherwise continue current mgmt. 01/21: less bizarre and disorganized, but still quite ill. variably compliant with medications. c/o leg pain, lowering self to floor; started cogentin 0.5 BID due to concern for dystonia. c/o nightmares, h/o prazosin with good effect. add prazosin 1 mg QHS as of tonight. 01/22: Patients states that she is good. She is scared of [place] herpes after having sex. She refused to participate in an interview with this provider, and walked away stating i don't need a provider. She was observed by this provider, pacing the [place]. Continue current treatment regimen. 01/23: disorganized and dangerous behaviors. voluntarily took IMs. court tomorrow. 01/24: remains disorganized. ran into staff member yesterday, postured and threatened other staff afterward. slept about 6.[address] this afternoon. 01/25/25: Staff 5 6 hours with broken sleep. Compliant with medication with lots of encouragement from yesterday, refused her vitamins in the morning. CT scan was negative, she fell early in the morning, witness her head hit the wall the trying to put her pants on. Slightly improved in mood with medication compliant. VPA level is 52,1 low side. However patient not consistently take it every day. We will recheck. He is on section 8. Pending Wei's order. Less irritable, less racing. 01/26/25: Mostly compliant with medication, to 250/750 mg of Depakote scheduled at bedtime. Labile, restless, poor boundaries, sexually inappropriate behavior, mood is aggravated . Disorganized. Slightly improving but not much. She is better in terms of compliant with medications. 01/27: mostly compliant with meds. improved from last week, more organized and less labile today. agreement reached on medications, reinstate risperidone as primary antipsychotic Tx, remove request for mood stabilizers, remove ativan. DC prolixin, begin taper of VPA, restart risperidone 2 BID, add thorazine 100 and valium 10 at HS to encourage sleep. awaiting med order. 01/28: last evening was pushing, attempting to kick and bite staff, shoulder- checked peer, exposing genitalia to 1:1 staff. took meds last night and this morning. court order received today, reviewed, medications adjusted to comply with order. reportedly more linear today, but pt declined to meet with MD after brief psychotic interaction with MD. 01/29: dysregulated, agitated behaviors continue last night. calmer days. refused VPA this morning. continue VPA taper, decrease from 500 BID to 250 TID as of today. increase HS seroquel from 300 mg to 400 mg as of tonight and HS valium from 10 mg to 15 mg as of tonight for sleep and sylwia. 01/30: same pattern of calm days through mid-afternoon, then decompensation. add third scheduled dosing of risperidone in the middle of the day, schedule valium in the morning and at 3 pm, otherwise continue current mgmt. increase HS seroquel if pt does not sleep more than several hours tonight. continue VPA taper tomorrow. 01/31: calm, morning. severe akathisia eves, unable to sleep or remain still. slept only 2.5 hours. due to 4 mg risperidone daily being inadequate to treat Sx and 6 mg causing severe akathisia, will DC risperidone in favor of a less potent antipsychotic, seroquel. schedule seroquel 100/100/500. taper VPA to 250 BID as of tomorrow. propranolol 20 TID started last night for akathisia, will continue for now. 02/01: no change - monitor akathisia decrease on new regimen 02/02: nicotine patch taper to 7 mg; seems to be doing better with switch to Seroquel and augmentation with Propranolol; primary team may f/u with further discussion of behavioral plan 02/03: much improved from last week. calm, linear, logical, topical. slept 6 hours each the last 3 nights. c/o sedation. decrease daytime valium from 5 BID to 2 BID. decrease daytime seroquel from 100 BID to 75 BID. taper VPA from 250 BID to 250 QHS. 02/04: remains much improved. no overt MSE abnormalities. c/o sedation, decrease seroquel from 75 BID to 50 BID and from 500 QHS to 400 QHS. DC VPA entirely. otherwise continue current mgmt. 02/05: backsliding today. irritable, erratic, more disorganized, labile. stating her intent to stop taking medications, demanding discharge. continue current mgmt. 02/06: much improved today. calm, logical, cogent and topical. pt would like to taper off of valium (addicting) and onto a proper mood stabilizer. commercial real estate paralegal notified. DC daytime valium. restart prazosin due to c/o nightmares. decrease propranolol from 20 TID to 10 TID (should no longer be necessary as off of medications likely to cause akathisia). DC daytime seroquel tomorrow. 02/07: similar conversation to yesterday. DC daytime seroquel. awaiting word from legal re adding lithium. otherwise continue current mgmt. 02/08: keeping to self. irritable edge. pt reports feeling overwhelmed d/t room change. medication compliant. focused on returning home. denies SI/HI/VH/AH. per nursing, slept 6 hours last night. continue current tx plan. 02/09: irritable edge. medication compliant. focused on returning home. intrusive during a peer's treatment; declined to walk away when asked by staff multiple times; poor insight and judgment. pt became upset after meeting with her mother; pt stated, my mom says its my behavior why I'm still here. I think they are keeping me here because I locked myself in that room . Valium decreased to 10mg PO bedtime. 02/10: irritable. medication compliant. Perseverative on discharge. Patient reports sleeping well last night. Appears calmer today. She reports visit with her mother when well. Denies SI/HI/VH/AH. Attending groups. Continue current treatment plan. 02/11/25: Irritable, irrational regarding why she is still being here. Poor insight and poor judgment. Not thinks she has bipolar. She only believes she has has ADHD and autism, therefore she does not need to be here and that no reason to keep her here longer. As a future, she does not think she going to continue taking medication after discharge per nursing. Racing thoughts. At times she is calm, able to attend groups, and some what appropriate. Have good visit with brother and mom yesterday. Not able to discuss for medication change due to agitated/irritable mood. 02/12/25: Been sleeping well, no issue with appetite, attended groups, have visit with mom. Both mom and patient the nurse believe that patient is not manic or having any bipolar features. They only believe that she has ADHD and autism. Mom advocate for patient to be discharged. Mom claims that the treatment team has not ever reach out to her. Both of the agree to have a family meeting in the future. We will leave message to the team to set it up. Patient has some mood swing, but overall, continued to improve with help of the medication. She wants to be off from Valium, but do not want any other medication change. Both Seroquel and Valium is on [facility] order. No other safety concerns. 02/13/25: Slept well, compliant with medications, refused nicotine patch on. Observed visible and attending groups, irritable at times, hyper focused on discharge as her normal baseline of everyday. Do not want any medication change. Reports gaining 28 lb since she got here. Nutrition consult placed. We will add Adderall on allergy list which make her psychotic. Patient to nursing put it in her allergy list. Some labile mood, pressured speech. 02/14: continue current tx plan. Patient educated on: medication risk/benefits Reason for continued inpatient stay Substantial Risk for: med/psych decompensation Time Spent With Patient Time: Total time managing care of this patient today _20___ minutes.
--- NOTE | 2025-02-14 12:26 | MHC.CLN ---
CONSULT CONSULT FOR APPROX 30# WEIGHT GAIN SINCE ADMISSION. VISITED WITH PATIENT IN HER ROOM. PATIENT WITH MANY QUESTIONS ABOUT WEIGHT GAIN, WEIGHT LOSS, FOODS TO EAT. ADVISED IF WEIGHT LOSS DESIRED, SHOULD EAT THREE MEALS PER DAY AND NO SNACKING. RECOMMENDED FRUIT OR YOGURT IF SNACK DESIRED. ADVISED NOT TO SKIP MEALS. RD AVAILABLE AGAIN BY CONSULT IF NEEDED.
[2025-02-14 15:13] VITALS: BP 133/77; PULSE 94
[2025-02-14 21:40] VITALS: BP 121/65; PULSE 79; RESP 18; TEMP 36.4; O2SAT 98
[2025-02-14 21:51] VITALS: BP 121/65; PULSE 79
[2025-02-15 07:26] VITALS: BP 98/57; PULSE 82
[2025-02-15 07:49] VITALS: BP 98/57; PULSE 82; RESP 16; TEMP 37.1; O2SAT 98
[2025-02-15 15:14] VITALS: BP 118/66; PULSE 91
[2025-02-15 21:45] VITALS: BP 121/72; PULSE 60; RESP 18; TEMP 36.6; O2SAT 99
[2025-02-15 21:52] VITALS: BP 121/72; PULSE 60
[2025-02-15 21:54] VITALS: BP 121/72
--- NOTE | 2025-02-15 23:21 | HO.PSYCHPN ---
Subjective Subjective Date of Service: 02/15/25 Reason For Visit: Crisis Subjective Notes: Section 8 Healthcare Proxy: No Guardianship: No Medical Problems Affecting Mental Status: No Interim History: Medical record and nursing notes reviewed; case discussed during rounds with team/nursing staff, and met with patient for supportive therapy/psychoeducation, as well as medication management. Slept well, manage meal intake, portion size, healthier snacks to control her weight gain. Met with the dietitian today. She also ask staff to pronounce the list of healthy/happy food. Family brought in some healthy snack for her. She was mad being wakened up to get vital signs in the morning by nursing staff. Denies suicidal thoughts, denies hallucinations. She asked questions regarding diagnosis. Educate her regarding psychosis that she came with. Explained with her regarding medication she has been taking here, she will be discharged with, and then work with the outpatient psychiatrist to continue with medication, making any change if necessary. She is more receptive with the plan, more rationale when she is not in the bad mood. She appreciates the time I spent talking to her today. Medication Compliance: No (refused Propranonol. Refused Nicotine patch. Refused vitamin but took it later ) Side effects from medications: No Attending Groups: Yes Review of Systems Acute medical concerns: No Medical Review of Systems: unchanged Review of Systems Review of Systems Constitutional: Denies fatigue and Denies fever(s) Cardiovascular: Denies chest pain and Denies dyspnea Respiratory: Denies dyspnea Gastrointestinal: Denies abdominal pain Psychiatric: denies suicidal ideation Endocrine: Denies fatigue Yes all other systems are reviewed and are negative Mental Status Exam Mental Status Exam Narrative: Appearance: adequately dressed and groomed Behavior: Irritable at times, demonstrate some patient moment. Speech: mild pressure but could be her baseline TP: less irritable today. Focus on health food/snack TC: Focused on discharge and healthy snack Mood: Irritable at times Affect: Irritable at times. AH/VH: Denies Insight/judgment: Poor with mild improvement Memory/cog: improving. Diagnostics Vital Signs (24Hr): Vital Signs - 24 hr 02/15/25 07:26 02/15/25 07:49 02/15/25 15:14 Temperature 98.7 F Pulse Rate 82 82 91 Respiratory Rate 16 Blood Pressure 98/57 L 98/57 L 118/66 Pulse Oximetry 98 Oxygen Delivery Method Room Air 02/15/25 21:45 02/15/25 21:52 02/15/25 21:54 Temperature 97.8 F Pulse Rate 60 60 Respiratory Rate 18 Blood Pressure 121/72 121/72 121/72 Pulse Oximetry 99 Oxygen Delivery Method Room Air BMI result Body Mass Index 23.2 Labs 01/09/25 16:36 01/09/25 16:36 Imaging Radiology Impressions: ITS Impressions Hand X-Ray 01/16/25 11:30 IMPRESSION: Unremarkable right hand Electronically signed by: Casa Rush MD 01/16/2025 11:46 AM EDT RP Hand X-Ray 01/29/25 07:30 IMPRESSION: Unremarkable examination of the right hand. Electronically signed by: Obdulio Tolbert MD 01/30/2025 07:56 AM EDT RP Medications Medications Current Medications Acetaminophen (Acetaminophen 325 Mg Tablet) 650 mg PO Q6H PRN PRN Reason: Headache/Pain, Scale 1-10 Last Admin: 02/10/25 23:21 Dose: 650 mg Al Hydroxide/Mg Hydroxide (Magnesium Hydrox/Alum Hydrox 30 Ml Oral.Susp) 30 ml PO Q6H PRN PRN Reason: Heartburn/Nausea Last Admin: 01/30/25 14:06 Dose: 30 ml Artificial Tears (Artificial Tears 15 Ml Drops) 2 drop EYE-BOTH Q4H PRN PRN Reason: Dry Eyes Last Admin: 02/06/25 09:24 Dose: 2 drop Diazepam (Diazepam 5 Mg Tablet) 5 mg PO Q4H PRN PRN Reason: agitation Last Admin: 02/05/25 04:10 Dose: 5 mg Diazepam (Diazepam 10 Mg/2 Ml Cartridge) 5 mg IM TID PRN PRN Reason: refusal of seroquel or valium Last Admin: 02/04/25 20:13 Dose: 5 mg Diazepam (Diazepam 5 Mg Tablet) 10 mg PO BEDTIME VERONICA Last Admin: 02/15/25 21:52 Dose: 10 mg Docusate Sodium (Docusate Sodium 100 Mg Capsule) 100 mg PO BID PRN PRN Reason: Constipation Last Admin: 01/30/25 20:10 Dose: 100 mg Haloperidol Lactate (Haloperidol Lactate 5 Mg/Ml Vial) 5 mg IM TID PRN PRN Reason: refusal of scheduled seroquel Last Admin: 02/04/25 20:14 Dose: 5 mg Hydrocortisone (Hydrocortisone 2.5 % Rectal Cr 30 Gm Tube) 1 appl [place] DAILY PRN PRN Reason: hemrroids Last Admin: 01/26/25 14:57 Dose: 1 appl Magnesium Hydroxide (Milk Of Magnesia 30 Ml Oral.Susp) 30 ml PO DAILY PRN PRN Reason: Constipation Last Admin: 01/26/25 14:59 Dose: 30 ml Multivitamins/Vitamin C (Multivitamin Tablet) 1 tab PO DAILY VERONICA Last Admin: 02/15/25 07:27 Dose: 1 tab Nicotine (Nicotine 7 Mg Patch.Td24) 7 mg TRANSDERMA DAILY PRN PRN Reason: Nicotine craving Nicotine Polacrilex (Nicotine Polacrilex 2 Mg Gum) 4 mg BUCCAL Q2H PRN PRN Reason: Nicotine Cravings Last Admin: 01/30/25 18:46 Dose: 4 mg Polyethylene Glycol (Polyethylene Glycol 3350 17 Gm Powd.Pack) 17 gm PO DAILY PRN PRN Reason: constipation Prazosin HCl (Prazosin Hcl 1 Mg Capsule) 1 mg PO BEDTIME VERONICA; Protocol Last Admin: 02/15/25 21:54 Dose: 1 mg Propranolol HCl (Propranolol Hcl 10 Mg Tablet) 10 mg PO TID VERONICA; Protocol Last Admin: 02/15/25 21:52 Dose: 10 mg Quetiapine Fumarate (Quetiapine Fumarate 400 Mg Tablet) 400 mg PO BEDTIME VERONICA Last Admin: 02/15/25 21:52 Dose: 400 mg Allergies Allergies Allergy/AdvReac Type Severity Reaction Status Date / Time amphetamine (From Adderall) Allergy Severe psychosis/ Verified 02/13/25 22:40 Manic dextroamphetamine (From Allergy Severe psychosis/ Verified 02/13/25 22:40 Adderall) Manic olanzapine (From Zyprexa) AdvReac Rash Verified 12/31/24 18:41 Assessment & Plan Assessment & Plan (1) Psychosis: Status: Acute Code(s): F29 - Unspecified psychosis not due to a substance or known physiological condition Plan Ms. Sheridan is a 34 year-old woman who presents with s/s of psychosis, disorganized, some degree of paranoia. She had similar episode back in 2020. 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 I do suspect that there may be underlying psychiatric disorder that is triggered by amphetamine use but not necessarily caused by it. Further evaluation to clarify dx is needed. We discussed inpt level of care. We also discussed restarting risperidone 1mg po BID. low dose clonazepam. continue clonidine. 1. IPLOC 2. start risperidone 1mg po BID. Clonazepam 0.5mg po BID. 01/05: Continue current regimen and plans. 01/06: slept only 2 hours, disorganized, decompensated behaviors. unable to interact cogently. refusing risperidone, will offer seroquel instead. possible bipolar diathesis, T/C mood stabilizer. delirium also a possibility, as the mental status change since admission appears to be striking. 01/07: took seroquel 200 last night, slept 5.5 hours. more organized, linear, able to engage today. continue current mgmt. 01/08: refused seroquel last NOC, slept only 30 minutes. agitated, bizarre, disorganized today. commitment paperwork filed. 01/09: refused meds yesterday but got IMs due to behaviors (outbursts, touching peers, yelling, banging doors, pushed her sitter, climbing on tables and chairs. threatening to stab self with pens). more linear and engageable today, once again the day after having takenm medication. agrees to continue to take seroquel 200 mg QHS. 01/10: took seroquel last NOC and slept 4 hours overnight, but bizarre today. less agitation and intrusiveness than yesterday, but still bizarre and fairly intrusive. pt appears willing to take risperidone, will DC seroquel and return to dosing of risperidone 2 mg BID. took first dose this afternoon. court next monday. 01/11 very paranoid, fearful, taking medications 01/12 continue tx. 01/13: appears a bit more organized today than when not taking medications, although slow and processing poorly. declines to sign CV. commitment hearing tomorrow. 01/14: hearing continued until 01/24 for SINDY. add klonopin 0.5 BID ODT, change risperidone formulation to liquid (pt has been inducing vomiting repeatedly with toothbrush). hold toothbrush unless actively brushing teeth. continues interactive to some extent with MD today, but has been grabbing badges, touching others, and tried to vault into the nursing station in the past 24H. 01/15: IM medication after threatening to punch industrial staff nurse with intrusive and aggressive behaviors toward peers. pt did not take klonopin as ordered yesterday. DC klonopin and start VPA 500 BID. per staff, running. tried to make herself vomit after taking PRN. labile. ate her feces in the shower and tried to feed it to her 1:1. crawling under tables. tried to jump into nurses station x2. took her shirt off and swinging it around. did not sleep at all. slept at 7:30am. 01/16: refusing VPA, taking risperidone. napped after IMs yesterday. has been bizarre and labile since. slept only 2 hours overnight. continue current mgmt. 01/17: agitated, bizarre, and aggressive behaviors yesterday (punching and kicking beard, stripping off in milieu, attempting to intimidate staff, grabbing stress balls out of staff's hands). did take VPA this morning on its being offered a second time. more calm today. taking risperidone. 01/18: intermittently refusing VPA, seems to be taking risperidone. asks MD if he is alive, then proposes elbow bump. accusing staff of stealing her things (phone), calling mother and timber hewer in the middle of the night. slept less than 4 hours. 01/19: more lucid today. concerned about risperidone weight gain. agrees to DC risperidone and try prolixin instead, starting at 2.5 BID. 01/20: very disorganized, bizarre, psychotic today. likely due to equivalent dosing of prolixin being given much lower than prior risperidone. as pt seems to be tolerating prolixin without issues, increase prolixin dosing from 2.5 BID to 5 BID. otherwise continue current mgmt. 01/21: less bizarre and disorganized, but still quite ill. variably compliant with medications. c/o leg pain, lowering self to floor; started cogentin 0.5 BID due to concern for dystonia. c/o nightmares, h/o prazosin with good effect. add prazosin 1 mg QHS as of tonight. 01/22: Patients states that she is good. She is scared of [place] herpes after having sex. She refused to participate in an interview with this provider, and walked away stating i don't need a provider. She was observed by this provider, pacing the [place]. Continue current treatment regimen. 01/23: disorganized and dangerous behaviors. voluntarily took IMs. court tomorrow. 01/24: remains disorganized. ran into staff member yesterday, postured and threatened other staff afterward. slept about 6.[address] this afternoon. 01/25/25: Staff 5 6 hours with broken sleep. Compliant with medication with lots of encouragement from yesterday, refused her vitamins in the morning. CT scan was negative, she fell early in the morning, witness her head hit the wall the trying to put her pants on. Slightly improved in mood with medication compliant. VPA level is 52,1 low side. However patient not consistently take it every day. We will recheck. He is on section 8. Pending Wei's order. Less irritable, less racing. 01/26/25: Mostly compliant with medication, to 250/750 mg of Depakote scheduled at bedtime. Labile, restless, poor boundaries, sexually inappropriate behavior, mood is aggravated . Disorganized. Slightly improving but not much. She is better in terms of compliant with medications. 01/27: mostly compliant with meds. improved from last week, more organized and less labile today. agreement reached on medications, reinstate risperidone as primary antipsychotic Tx, remove request for mood stabilizers, remove ativan. DC prolixin, begin taper of VPA, restart risperidone 2 BID, add thorazine 100 and valium 10 at HS to encourage sleep. awaiting med order. 01/28: last evening was pushing, attempting to kick and bite staff, shoulder-checked peer, exposing genitalia to 1:1 staff. took meds last night and this morning. court order received today, reviewed, medications adjusted to comply with order. reportedly more linear today, but pt declined to meet with MD after brief psychotic interaction with MD. 01/29: dysregulated, agitated behaviors continue last night. calmer days. refused VPA this morning. continue VPA taper, decrease from 500 BID to 250 TID as of today. increase HS seroquel from 300 mg to 400 mg as of tonight and HS valium from 10 mg to 15 mg as of tonight for sleep and sylwia. 01/30: same pattern of calm days through mid-afternoon, then decompensation. add third scheduled dosing of risperidone in the middle of the day, schedule valium in the morning and at 3 pm, otherwise continue current mgmt. increase HS seroquel if pt does not sleep more than several hours tonight. continue VPA taper tomorrow. 01/31: calm, morning. severe akathisia eves, unable to sleep or remain still. slept only 2.5 hours. due to 4 mg risperidone daily being inadequate to treat Sx and 6 mg causing severe akathisia, will DC risperidone in favor of a less potent antipsychotic, seroquel. schedule seroquel 100/100/500. taper VPA to 250 BID as of tomorrow. propranolol 20 TID started last night for akathisia, will continue for now. 02/01: no change - monitor akathisia decrease on new regimen 02/02: nicotine patch taper to 7 mg; seems to be doing better with switch to Seroquel and augmentation with Propranolol; primary team may f/u with further discussion of behavioral plan 02/03: much improved from last week. calm, linear, logical, topical. slept 6 hours each the last 3 nights. c/o sedation. decrease daytime valium from 5 BID to 2 BID. decrease daytime seroquel from 100 BID to 75 BID. taper VPA from 250 BID to 250 QHS. 02/04: remains much improved. no overt MSE abnormalities. c/o sedation, decrease seroquel from 75 BID to 50 BID and from 500 QHS to 400 QHS. DC VPA entirely. otherwise continue current mgmt. 02/05: backsliding today. irritable, erratic, more disorganized, labile. stating her intent to stop taking medications, demanding discharge. continue current mgmt. 02/06: much improved today. calm, logical, cogent and topical. pt would like to taper off of valium (addicting) and onto a proper mood stabilizer. professor of legal studies notified. DC daytime valium. restart prazosin due to c/o nightmares. decrease propranolol from 20 TID to 10 TID (should no longer be necessary as off of medications likely to cause akathisia). DC daytime seroquel tomorrow. 02/07: similar conversation to yesterday. DC daytime seroquel. awaiting word from legal re adding lithium. otherwise continue current mgmt. 02/08: keeping to self. irritable edge. pt reports feeling overwhelmed d/t room change. medication compliant. focused on returning home. denies SI/HI/VH/AH. per nursing, slept 6 hours last night. continue current tx plan. 02/09: irritable edge. medication compliant. focused on returning home. intrusive during a peer's treatment; declined to walk away when asked by staff multiple times; poor insight and judgment. pt became upset after meeting with her mother; pt stated, my mom says its my behavior why I'm still here. I think they are keeping me here because I locked myself in that room . Valium decreased to 10mg PO bedtime. 02/10: irritable. medication compliant. Perseverative on discharge. Patient reports sleeping well last night. Appears calmer today. She reports visit with her mother when well. Denies SI/HI/VH/AH. Attending groups. Continue current treatment plan. 02/11/25: Irritable, irrational regarding why she is still being here. Poor insight and poor judgment. Not thinks she has bipolar. She only believes she has has ADHD and autism, therefore she does not need to be here and that no reason to keep her here longer. As a future, she does not think she going to continue taking medication after discharge per nursing. Racing thoughts. At times she is calm, able to attend groups, and some what appropriate. Have good visit with brother and mom yesterday. Not able to discuss for medication change due to agitated/irritable mood. 02/12/25: Been sleeping well, no issue with appetite, attended groups, have visit with mom. Both mom and patient the nurse believe that patient is not manic or having any bipolar features. They only believe that she has ADHD and autism. Mom advocate for patient to be discharged. Mom claims that the treatment team has not ever reach out to her. Both of the agree to have a family meeting in the future. We will leave message to the team to set it up. Patient has some mood swing, but overall, continued to improve with help of the medication. She wants to be off from Valium, but do not want any other medication change. Both Seroquel and Valium is on [facility] order. No other safety concerns. 02/13/25: Slept well, compliant with medications, refused nicotine patch on. Observed visible and attending groups, irritable at times, hyper focused on discharge as her normal baseline of everyday. Do not want any medication change. Reports gaining 28 lb since she got here. Nutrition consult placed. We will add Adderall on allergy list which make her psychotic. Patient to nursing put it in her allergy list. Some labile mood, pressured speech. 02/14: continue current tx plan. 02/15/25: Slept well, manage meal intake, portion size, healthier snacks to control her weight gain. Met with the dietitian today. She also ask staff to pronounce the list of healthy/happy food. Family brought in some healthy snack for her. She was mad being wakened up to get vital signs in the morning by nursing staff. Denies suicidal thoughts, denies hallucinations. She asked questions regarding diagnosis. Educate her regarding psychosis that she came with. Explained with her regarding medication she has been taking here, she will be discharged with, and then work with the outpatient psychiatrist to continue with medication, making any change if necessary. She is more receptive with the plan, more rationale when she is not in the bad mood. She appreciates the time I spent talking to her today. She attended groups, visible. No ADLs issues. Can be irritable at times. Refused her propranolol in the morning. She took multivitamins later on of the day after she refused. Change nicotine patch to p.r.n.. Patient educated on: diagnosis, medication risk/benefits and therapeutic strategies Informed Consent: understands and further education needed Reason for continued inpatient stay Substantial Risk for: med/psych decompensation Time Spent With Patient Time: Total time managing care of this patient today ____ minutes.
[2025-02-16 08:36] VITALS: BP 119/64; PULSE 94; RESP 18; TEMP 36.4; O2SAT 99
[2025-02-16 15:17] VITALS: BP 116/71; PULSE 94
--- NOTE | 2025-02-16 21:42 | P.PNPSI_ITS ---
Subjective Subjective Date of Service: 02/16/25 Reason For Visit: Crisis Subjective Notes: [facility] Order and Section 8 Healthcare Proxy: No Guardianship: No Medical Problems Affecting Mental Status: No Interim History: Medical record and nursing notes reviewed; case discussed during rounds with team/nursing staff, and met with patient for supportive therapy/psychoeducation, as well as medication management. Reported that she was angry, other than that she feels mood more stable today. Nursing staff contacted this provider reported that patient in the past was allowed using the head phone at night to cancel out the noise. Patient asked if she was allowed to use it again. Patient focused on healthy food, eating yogurt only in the morning. Family brought in more seeds instead of eating unhealthy food from hospital. She also was irritable as someone touching her clothes in the washer. She has a couple visits today. She feels ready to leave and stable enough to go home to community. She is looking forward to talk to her attending this week regarding discharge. Denies other safety concerns. She has been irritable at times, but able to control her anger. She said this is her baseline, and being in here is make her more irritable. Medication Compliance: Yes Side effects from medications: No Attending Groups: Yes Review of Systems Acute medical concerns: No Medical Review of Systems: unchanged Review of Systems Review of Systems Constitutional: Denies fatigue and Denies fever(s) Cardiovascular: Denies chest pain and Denies dyspnea Respiratory: Denies dyspnea Gastrointestinal: Denies abdominal pain Psychiatric: denies suicidal ideation Endocrine: Denies fatigue Yes all other systems are reviewed and are negative Mental Status Exam Mental Status Exam Narrative: Appearance: adequately dressed and groomed Behavior: Irritable at times, demonstrate some patient moment. Speech: mild pressure but could be her baseline TP: less irritable today. Focus on health food/snack TC: Focused on discharge and healthy snack Mood: more pleasant but can be labile Affect: Pleasant, irritable, AH/VH: Denies Insight/judgment: improving Memory/cog: improving. Diagnostics Vital Signs (24Hr): Vital Signs - 24 hr 02/15/25 21:45 02/15/25 21:52 02/15/25 21:54 Temperature 97.8 F Pulse Rate 60 60 Respiratory Rate 18 Blood Pressure 121/72 121/72 121/72 Pulse Oximetry 99 Oxygen Delivery Method Room Air 02/16/25 08:36 02/16/25 15:17 Temperature 97.6 F Pulse Rate 94 94 Respiratory Rate 18 Blood Pressure 119/64 116/71 Pulse Oximetry 99 Oxygen Delivery Method Room Air BMI result Body Mass Index 23.2 Labs 01/09/25 16:36 01/09/25 16:36 Imaging Radiology Impressions: ITS Impressions Hand X-Ray 01/16/25 11:30 IMPRESSION: Unremarkable right hand Electronically signed by: Casa Rush MD 01/16/2025 11:46 AM EDT RP Hand X-Ray 01/29/25 07:30 IMPRESSION: Unremarkable examination of the right hand. Electronically signed by: Obdulio Tolbert MD 01/30/2025 07:56 AM EDT RP Medications Medications Current Medications Acetaminophen (Acetaminophen 325 Mg Tablet) 650 mg PO Q6H PRN PRN Reason: Headache/Pain, Scale 1-10 Last Admin: 02/10/25 23:21 Dose: 650 mg Al Hydroxide/Mg Hydroxide (Magnesium Hydrox/Alum Hydrox 30 Ml Oral.Susp) 30 ml PO Q6H PRN PRN Reason: Heartburn/Nausea Last Admin: 01/30/25 14:06 Dose: 30 ml Artificial Tears (Artificial Tears 15 Ml Drops) 2 drop EYE-BOTH Q4H PRN PRN Reason: Dry Eyes Last Admin: 02/06/25 09:24 Dose: 2 drop Diazepam (Diazepam 5 Mg Tablet) 5 mg PO Q4H PRN PRN Reason: agitation Last Admin: 02/05/25 04:10 Dose: 5 mg Diazepam (Diazepam 10 Mg/2 Ml Cartridge) 5 mg IM TID PRN PRN Reason: refusal of seroquel or valium Last Admin: 02/04/25 20:13 Dose: 5 mg Diazepam (Diazepam 5 Mg Tablet) 10 mg PO BEDTIME VERONICA Last Admin: 02/15/25 21:52 Dose: 10 mg Docusate Sodium (Docusate Sodium 100 Mg Capsule) 100 mg PO BID PRN PRN Reason: Constipation Last Admin: 01/30/25 20:10 Dose: 100 mg Haloperidol Lactate (Haloperidol Lactate 5 Mg/Ml Vial) 5 mg IM TID PRN PRN Reason: refusal of scheduled seroquel Last Admin: 02/04/25 20:14 Dose: 5 mg Hydrocortisone (Hydrocortisone 2.5 % Rectal Cr 30 Gm Tube) 1 appl [place] DAILY PRN PRN Reason: hemrroids Last Admin: 01/26/25 14:57 Dose: 1 appl Magnesium Hydroxide (Milk Of Magnesia 30 Ml Oral.Susp) 30 ml PO DAILY PRN PRN Reason: Constipation Last Admin: 01/26/25 14:59 Dose: 30 ml Multivitamins/Vitamin C (Multivitamin Tablet) 1 tab PO DAILY VERONICA Last Admin: 02/16/25 08:37 Dose: 1 tab Nicotine (Nicotine 7 Mg Patch.Td24) 7 mg TRANSDERMA DAILY PRN PRN Reason: Nicotine craving Nicotine Polacrilex (Nicotine Polacrilex 2 Mg Gum) 4 mg BUCCAL Q2H PRN PRN Reason: Nicotine Cravings Last Admin: 01/30/25 18:46 Dose: 4 mg Polyethylene Glycol (Polyethylene Glycol 3350 17 Gm Powd.Pack) 17 gm PO DAILY PRN PRN Reason: constipation Prazosin HCl (Prazosin Hcl 1 Mg Capsule) 1 mg PO BEDTIME VERONICA; Protocol Last Admin: 02/15/25 21:54 Dose: 1 mg Propranolol HCl (Propranolol Hcl 10 Mg Tablet) 10 mg PO TID VERONICA; Protocol Last Admin: 02/16/25 15:17 Dose: 10 mg Quetiapine Fumarate (Quetiapine Fumarate 400 Mg Tablet) 400 mg PO BEDTIME VERONICA Last Admin: 02/15/25 21:52 Dose: 400 mg Allergies Allergies Allergy/AdvReac Type Severity Reaction Status Date / Time amphetamine (From Adderall) Allergy Severe psychosis/ Verified 02/13/25 22:40 Manic dextroamphetamine (From Allergy Severe psychosis/ Verified 02/13/25 22:40 Adderall) Manic olanzapine (From Zyprexa) AdvReac Rash Verified 12/31/24 18:41 Assessment & Plan Assessment & Plan (1) Psychosis: Status: Acute Code(s): F29 - Unspecified psychosis not due to a substance or known physiological condition Plan Ms. Sheridan is a 34 year-old woman who presents with s/s of psychosis, disorganized, some degree of paranoia. She had similar episode back in 2020. 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 I do suspect that there may be underlying psychiatric disorder that is triggered by amphetamine use but not necessarily caused by it. Further evaluation to clarify dx is needed. We discussed inpt level of care. We also discussed restarting risperidone 1mg po BID. low dose clonazepam. continue clonidine. 1. IPLOC 2. start risperidone 1mg po BID. Clonazepam 0.5mg po BID. 01/05: Continue current regimen and plans. 01/06: slept only 2 hours, disorganized, decompensated behaviors. unable to interact cogently. refusing risperidone, will offer seroquel instead. possible bipolar diathesis, T/C mood stabilizer. delirium also a possibility, as the mental status change since admission appears to be striking. 01/07: took seroquel 200 last night, slept 5.5 hours. more organized, linear, able to engage today. continue current mgmt. 01/08: refused seroquel last NOC, slept only 30 minutes. agitated, bizarre, disorganized today. commitment paperwork filed. 01/09: refused meds yesterday but got IMs due to behaviors (outbursts, touching peers, yelling, banging doors, pushed her sitter, climbing on tables and chairs. threatening to stab self with pens). more linear and engageable today, once again the day after having takenm medication. agrees to continue to take seroquel 200 mg QHS. 01/10: took seroquel last NOC and slept 4 hours overnight, but bizarre today. less agitation and intrusiveness than yesterday, but still bizarre and fairly intrusive. pt appears willing to take risperidone, will DC seroquel and return to dosing of risperidone 2 mg BID. took first dose this afternoon. court next monday. 01/11 very paranoid, fearful, taking medications 01/12 continue tx. 01/13: appears a bit more organized today than when not taking medications, although slow and processing poorly. declines to sign CV. commitment hearing tomorrow. 01/14: hearing continued until 01/24 for SINDY. add klonopin 0.5 BID ODT, change risperidone formulation to liquid (pt has been inducing vomiting repeatedly with toothbrush). hold toothbrush unless actively brushing teeth. continues interactive to some extent with MD today, but has been grabbing badges, touching others, and tried to vault into the nursing station in the past 24H. 7/2: IM medication after threatening to punch staff weapons officer with intrusive and aggressive behaviors toward peers. pt did not take klonopin as ordered yesterday. DC klonopin and start VPA 500 BID. per staff, running. tried to make herself vomit after taking PRN. labile. ate her feces in the shower and tried to feed it to her 1:1. crawling under tables. tried to jump into nurses station x2. took her shirt off and swinging it around. did not sleep at all. slept at 7:30am. 01/16: refusing VPA, taking risperidone. napped after IMs yesterday. has been bizarre and labile since. slept only 2 hours overnight. continue current mgmt. 01/17: agitated, bizarre, and aggressive behaviors yesterday (punching and kicking beard, stripping off in milieu, attempting to intimidate staff, grabbing stress balls out of staff's hands). did take VPA this morning on its being offered a second time. more calm today. taking risperidone. 01/18: intermittently refusing VPA, seems to be taking risperidone. asks MD if he is alive, then proposes elbow bump. accusing staff of stealing her things (phone), calling mother and director of engineering in the middle of the night. slept less than 4 hours. 01/19: more lucid today. concerned about risperidone weight gain. agrees to DC risperidone and try prolixin instead, starting at 2.5 BID. 01/20: very disorganized, bizarre, psychotic today. likely due to equivalent dosing of prolixin being given much lower than prior risperidone. as pt seems to be tolerating prolixin without issues, increase prolixin dosing from 2.5 BID to 5 BID. otherwise continue current mgmt. 01/21: less bizarre and disorganized, but still quite ill. variably compliant with medications. c/o leg pain, lowering self to floor; started cogentin 0.5 BID due to concern for dystonia. c/o nightmares, h/o prazosin with good effect. add prazosin 1 mg QHS as of tonight. 01/22: Patients states that she is good. She is scared of [place] herpes after having sex. She refused to participate in an interview with this provider, and walked away stating i don't need a provider. She was observed by this provider, pacing the [place]. Continue current treatment regimen. 01/23: disorganized and dangerous behaviors. voluntarily took IMs. court tomorrow. 01/24: remains disorganized. ran into staff member yesterday, postured and threatened other staff afterward. slept about 6.[address] this afternoon. 01/25/25: Staff 5 6 hours with broken sleep. Compliant with medication with lots of encouragement from yesterday, refused her vitamins in the morning. CT scan was negative, she fell early in the morning, witness her head hit the wall the trying to put her pants on. Slightly improved in mood with medication compliant. VPA level is 52,1 low side. However patient not consistently take it every day. We will recheck. He is on section 8. Pending Wei's order. Less irritable, less racing. 01/26/25: Mostly compliant with medication, to 250/750 mg of Depakote scheduled at bedtime. Labile, restless, poor boundaries, sexually inappropriate behavior, mood is aggravated . Disorganized. Slightly improving but not much. She is better in terms of compliant with medications. 01/27: mostly compliant with meds. improved from last week, more organized and less labile today. agreement reached on medications, reinstate risperidone as primary antipsychotic Tx, remove request for mood stabilizers, remove ativan. DC prolixin, begin taper of VPA, restart risperidone 2 BID, add thorazine 100 and valium 10 at HS to encourage sleep. awaiting med order. 01/28: last evening was pushing, attempting to kick and bite staff, shoulder- checked peer, exposing genitalia to 1:1 staff. took meds last night and this morning. court order received today, reviewed, medications adjusted to comply with order. reportedly more linear today, but pt declined to meet with MD after brief psychotic interaction with MD. 01/29: dysregulated, agitated behaviors continue last night. calmer days. refused VPA this morning. continue VPA taper, decrease from 500 BID to 250 TID as of today. increase HS seroquel from 300 mg to 400 mg as of tonight and HS valium from 10 mg to 15 mg as of tonight for sleep and sylwia. 01/30: same pattern of calm days through mid-afternoon, then decompensation. add third scheduled dosing of risperidone in the middle of the day, schedule valium in the morning and at 3 pm, otherwise continue current mgmt. increase HS seroquel if pt does not sleep more than several hours tonight. continue VPA taper tomorrow. 01/31: calm, morning. severe akathisia eves, unable to sleep or remain still. slept only 2.5 hours. due to 4 mg risperidone daily being inadequate to treat Sx and 6 mg causing severe akathisia, will DC risperidone in favor of a less potent antipsychotic, seroquel. schedule seroquel 100/100/500. taper VPA to 250 BID as of tomorrow. propranolol 20 TID started last night for akathisia, will continue for now. 02/01: no change - monitor akathisia decrease on new regimen 02/02: nicotine patch taper to 7 mg; seems to be doing better with switch to Seroquel and augmentation with Propranolol; primary team may f/u with further discussion of behavioral plan 02/03: much improved from last week. calm, linear, logical, topical. slept 6 hours each the last 3 nights. c/o sedation. decrease daytime valium from 5 BID to 2 BID. decrease daytime seroquel from 100 BID to 75 BID. taper VPA from 250 BID to 250 QHS. 02/04: remains much improved. no overt MSE abnormalities. c/o sedation, decrease seroquel from 75 BID to 50 BID and from 500 QHS to 400 QHS. DC VPA entirely. otherwise continue current mgmt. 02/05: backsliding today. irritable, erratic, more disorganized, labile. stating her intent to stop taking medications, demanding discharge. continue current mgmt. 02/06: much improved today. calm, logical, cogent and topical. pt would like to taper off of valium (addicting) and onto a proper mood stabilizer. personal injury legal assistant notified. DC daytime valium. restart prazosin due to c/o nightmares. decrease propranolol from 20 TID to 10 TID (should no longer be necessary as off of medications likely to cause akathisia). DC daytime seroquel tomorrow. 02/07: similar conversation to yesterday. DC daytime seroquel. awaiting word from legal re adding lithium. otherwise continue current mgmt. 02/08: keeping to self. irritable edge. pt reports feeling overwhelmed d/t room change. medication compliant. focused on returning home. denies SI/HI/VH/AH. per nursing, slept 6 hours last night. continue current tx plan. 02/09: irritable edge. medication compliant. focused on returning home. intrusive during a peer's treatment; declined to walk away when asked by staff multiple times; poor insight and judgment. pt became upset after meeting with her mother; pt stated, my mom says its my behavior why I'm still here. I think they are keeping me here because I locked myself in that room . Valium decreased to 10mg PO bedtime. 02/10: irritable. medication compliant. Perseverative on discharge. Patient reports sleeping well last night. Appears calmer today. She reports visit with her mother when well. Denies SI/HI/VH/AH. Attending groups. Continue current treatment plan. 02/11/25: Irritable, irrational regarding why she is still being here. Poor insight and poor judgment. Not thinks she has bipolar. She only believes she has has ADHD and autism, therefore she does not need to be here and that no reason to keep her here longer. As a future, she does not think she going to continue taking medication after discharge per nursing. Racing thoughts. At times she is calm, able to attend groups, and some what appropriate. Have good visit with brother and mom yesterday. Not able to discuss for medication change due to agitated/irritable mood. 02/12/25: Been sleeping well, no issue with appetite, attended groups, have visit with mom. Both mom and patient the nurse believe that patient is not manic or having any bipolar features. They only believe that she has ADHD and autism. Mom advocate for patient to be discharged. Mom claims that the treatment team has not ever reach out to her. Both of the agree to have a family meeting in the future. We will leave message to the team to set it up. Patient has some mood swing, but overall, continued to improve with help of the medication. She wants to be off from Valium, but do not want any other medication change. Both Seroquel and Valium is on [facility] order. No other safety concerns. 02/13/25: Slept well, compliant with medications, refused nicotine patch on. Observed visible and attending groups, irritable at times, hyper focused on discharge as her normal baseline of everyday. Do not want any medication change. Reports gaining 28 lb since she got here. Nutrition consult placed. We will add Adderall on allergy list which make her psychotic. Patient to nursing put it in her allergy list. Some labile mood, pressured speech. 02/14: continue current tx plan. 02/15/25: Slept well, manage meal intake, portion size, healthier snacks to control her weight gain. Met with the dietitian today. She also ask staff to pronounce the list of healthy/happy food. Family brought in some healthy snack for her. She was mad being wakened up to get vital signs in the morning by nursing staff. Denies suicidal thoughts, denies hallucinations. She asked questions regarding diagnosis. Educate her regarding psychosis that she came with. Explained with her regarding medication she has been taking here, she will be discharged with, and then work with the outpatient psychiatrist to continue with medication, making any change if necessary. She is more receptive with the plan, more rationale when she is not in the bad mood. She appreciates the time I spent talking to her today. She attended groups, visible. No ADLs issues. Can be irritable at times. Refused her propranolol in the morning. She took multivitamins later on of the day after she refused. Change nicotine patch to p.r.n.. 02/16/25: Reported that she was angry, other than that she feels mood more stable today. Nursing staff contacted this provider reported that patient in the past was allowed using the head phone at night to cancel out the noise. Patient asked if she was allowed to use it again. Patient focused on healthy food, eating yogurt only in the morning. Family brought in more seeds instead of eating unhealthy food from hospital. She also was irritable as someone touching her clothes in the washer. She has a couple visits today. She feels ready to leave and stable enough to go home to community. She is looking forward to talk to her attending this week regarding discharge. Denies other safety concerns. She has been irritable at times, but able to control her anger. She said this is her baseline, and being in here is make her more irritable. Had phones use overnight order was discontinued per policy. Patient educated on: diagnosis, medication risk/benefits and therapeutic strategies Informed Consent: understands Reason for continued inpatient stay Substantial Risk for: med/psych decompensation Time Spent With Patient Time: Total time managing care of this patient today ____ minutes.
[2025-02-16 22:12] VITALS: BP 124/70; PULSE 98; RESP 16; TEMP 37.3; O2SAT 100
[2025-02-17 07:51] VITALS: BP 122/56; PULSE 100
[2025-02-17 08:00] VITALS: PULSE 100; RESP 16; TEMP 36.6; O2SAT 98
--- NOTE | 2025-02-17 14:16 | HO.PSYCHPN ---
Subjective Subjective Date of Service: 02/17/25 Reason For Visit: Crisis Interim History: calm and cooperative today, appearing tense and strained, however, not relaxed and natural. asking about discharge. indicating willingness to take mood stabilizer. ambivalent re bipolar Dx. discuss medications plan in great detail - taper valium and seroquel, start mood stabilizer. per staff, sec 8, 15s, horrible weekend. agitated. intrusive. pushing limits. rude. intrusive in other peers treatments. provocative. restricting her diet to lose weight. labile. Mental Status Exam Mental Status Exam Narrative: Appearance: adequately dressed and groomed Behavior: no PMA/PMR Speech: incr amount, nml loudness. nml latency. TP: organized TC: germane, no delusions or paranoia expressed Mood: euthymic Affect: calm AH/VH: none expressed Insight/judgment: improved Memory/cog: alert, improving. Diagnostics Vital Signs (24Hr): Vital Signs - 24 hr 02/16/25 15:17 02/16/25 22:12 02/17/25 07:51 Temperature 99.1 F Pulse Rate 94 98 100 Respiratory Rate 16 Blood Pressure 116/71 124/70 122/56 L Pulse Oximetry 100 Oxygen Delivery Method Room Air 02/17/25 08:00 Temperature 97.8 F Pulse Rate 100 Respiratory Rate 16 Blood Pressure Pulse Oximetry 98 Oxygen Delivery Method Room Air BMI result Body Mass Index 23.2 Labs 01/09/25 16:36 01/09/25 16:36 Imaging Radiology Impressions: ITS Impressions Hand X-Ray 01/16/25 11:30 IMPRESSION: Unremarkable right hand Electronically signed by: Casa Rush MD 01/16/2025 11:46 AM EDT RP Hand X-Ray 01/29/25 07:30 IMPRESSION: Unremarkable examination of the right hand. Electronically signed by: Obdulio Tolbert MD 01/30/2025 07:56 AM EDT RP Medications Medications Current Medications Acetaminophen (Acetaminophen 325 Mg Tablet) 650 mg PO Q6H PRN PRN Reason: Headache/Pain, Scale 1-10 Last Admin: 02/10/25 23:21 Dose: 650 mg Al Hydroxide/Mg Hydroxide (Magnesium Hydrox/Alum Hydrox 30 Ml Oral.Susp) 30 ml PO Q6H PRN PRN Reason: Heartburn/Nausea Last Admin: 01/30/25 14:06 Dose: 30 ml Artificial Tears (Artificial Tears 15 Ml Drops) 2 drop EYE-BOTH Q4H PRN PRN Reason: Dry Eyes Last Admin: 02/06/25 09:24 Dose: 2 drop Diazepam (Diazepam 5 Mg Tablet) 5 mg PO Q4H PRN PRN Reason: agitation Last Admin: 02/17/25 07:50 Dose: 5 mg Diazepam (Diazepam 10 Mg/2 Ml Cartridge) 5 mg IM TID PRN PRN Reason: refusal of seroquel or valium Last Admin: 02/04/25 20:13 Dose: 5 mg Diazepam (Diazepam 5 Mg Tablet) 10 mg PO BEDTIME VERONICA Last Admin: 02/16/25 22:39 Dose: 10 mg Docusate Sodium (Docusate Sodium 100 Mg Capsule) 100 mg PO BID PRN PRN Reason: Constipation Last Admin: 01/30/25 20:10 Dose: 100 mg Haloperidol Lactate (Haloperidol Lactate 5 Mg/Ml Vial) 5 mg IM TID PRN PRN Reason: refusal of scheduled seroquel Last Admin: 02/04/25 20:14 Dose: 5 mg Hydrocortisone (Hydrocortisone 2.5 % Rectal Cr 30 Gm Tube) 1 appl PA DAILY PRN PRN Reason: hemrroids Last Admin: 01/26/25 14:57 Dose: 1 appl Magnesium Hydroxide (Milk Of Magnesia 30 Ml Oral.Susp) 30 ml PO DAILY PRN PRN Reason: Constipation Last Admin: 01/26/25 14:59 Dose: 30 ml Multivitamins/Vitamin C (Multivitamin Tablet) 1 tab PO DAILY VERONICA Last Admin: 02/17/25 07:51 Dose: 1 tab Nicotine (Nicotine 7 Mg Patch.Td24) 7 mg TRANSDERMA DAILY PRN PRN Reason: Nicotine craving Nicotine Polacrilex (Nicotine Polacrilex 2 Mg Gum) 4 mg BUCCAL Q2H PRN PRN Reason: Nicotine Cravings Last Admin: 01/30/25 18:46 Dose: 4 mg Polyethylene Glycol (Polyethylene Glycol 3350 17 Gm Powd.Pack) 17 gm PO DAILY PRN PRN Reason: constipation Prazosin HCl (Prazosin Hcl 1 Mg Capsule) 1 mg PO BEDTIME VERONICA; Protocol Last Admin: 02/16/25 22:39 Dose: 1 mg Propranolol HCl (Propranolol Hcl 10 Mg Tablet) 10 mg PO TID VERONICA; Protocol Last Admin: 02/17/25 07:51 Dose: 10 mg Quetiapine Fumarate (Quetiapine Fumarate 400 Mg Tablet) 400 mg PO BEDTIME VERONICA Last Admin: 02/16/25 22:39 Dose: 400 mg Allergies Allergies Allergy/AdvReac Type Severity Reaction Status Date / Time amphetamine (From Adderall) Allergy Severe psychosis/ Verified 02/13/25 22:40 Manic dextroamphetamine (From Allergy Severe psychosis/ Verified 02/13/25 22:40 Adderall) Manic olanzapine (From Zyprexa) AdvReac Rash Verified 12/31/24 18:41 Assessment & Plan Assessment & Plan (1) Psychosis: Status: Acute Code(s): F29 - Unspecified psychosis not due to a substance or known physiological condition Plan Ms. Sheridan is a 34 year-old woman who presents with s/s of psychosis, disorganized, some degree of paranoia. She had similar episode back in 2020. 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 I do suspect that there may be underlying psychiatric disorder that is triggered by amphetamine use but not necessarily caused by it. Further evaluation to clarify dx is needed. We discussed inpt level of care. We also discussed restarting risperidone 1mg po BID. low dose clonazepam. continue clonidine. 1. IPLOC 2. start risperidone 1mg po BID. Clonazepam 0.5mg po BID. 01/05: Continue current regimen and plans. 01/06: slept only 2 hours, disorganized, decompensated behaviors. unable to interact cogently. refusing risperidone, will offer seroquel instead. possible bipolar diathesis, T/C mood stabilizer. delirium also a possibility, as the mental status change since admission appears to be striking. 01/07: took seroquel 200 last night, slept 5.5 hours. more organized, linear, able to engage today. continue current mgmt. 01/08: refused seroquel last NOC, slept only 30 minutes. agitated, bizarre, disorganized today. commitment paperwork filed. 01/09: refused meds yesterday but got IMs due to behaviors (outbursts, touching peers, yelling, banging doors, pushed her sitter, climbing on tables and chairs. threatening to stab self with pens). more linear and engageable today, once again the day after having takenm medication. agrees to continue to take seroquel 200 mg QHS. 01/10: took seroquel last NOC and slept 4 hours overnight, but bizarre today. less agitation and intrusiveness than yesterday, but still bizarre and fairly intrusive. pt appears willing to take risperidone, will DC seroquel and return to dosing of risperidone 2 mg BID. took first dose this afternoon. court next monday. 01/11 very paranoid, fearful, taking medications 01/12 continue tx. 01/13: appears a bit more organized today than when not taking medications, although slow and processing poorly. declines to sign CV. commitment hearing tomorrow. 01/14: hearing continued until 01/24 for SINDY. add klonopin 0.5 BID ODT, change risperidone formulation to liquid (pt has been inducing vomiting repeatedly with toothbrush). hold toothbrush unless actively brushing teeth. continues interactive to some extent with MD today, but has been grabbing badges, touching others, and tried to vault into the nursing station in the past 24H. 01/15: IM medication after threatening to punch staffing and scheduling coordinator with intrusive and aggressive behaviors toward peers. pt did not take klonopin as ordered yesterday. DC klonopin and start VPA 500 BID. per staff, running. tried to make herself vomit after taking PRN. labile. ate her feces in the shower and tried to feed it to her 1:1. crawling under tables. tried to jump into nurses station x2. took her shirt off and swinging it around. did not sleep at all. slept at 7:30am. 01/16: refusing VPA, taking risperidone. napped after IMs yesterday. has been bizarre and labile since. slept only 2 hours overnight. continue current mgmt. 01/17: agitated, bizarre, and aggressive behaviors yesterday (punching and kicking beard, stripping off in milieu, attempting to intimidate staff, grabbing stress balls out of staff's hands). did take VPA this morning on its being offered a second time. more calm today. taking risperidone. 01/18: intermittently refusing VPA, seems to be taking risperidone. asks MD if he is alive, then proposes elbow bump. accusing staff of stealing her things (phone), calling mother and answering service telephone operator in the middle of the night. slept less than 4 hours. 01/19: more lucid today. concerned about risperidone weight gain. agrees to DC risperidone and try prolixin instead, starting at 2.5 BID. 01/20: very disorganized, bizarre, psychotic today. likely due to equivalent dosing of prolixin being given much lower than prior risperidone. as pt seems to be tolerating prolixin without issues, increase prolixin dosing from 2.5 BID to 5 BID. otherwise continue current mgmt. 01/21: less bizarre and disorganized, but still quite ill. variably compliant with medications. c/o leg pain, lowering self to floor; started cogentin 0.5 BID due to concern for dystonia. c/o nightmares, h/o prazosin with good effect. add prazosin 1 mg QHS as of [place]. 01/22: Patients states that she is good. She is scared of [place] herpes after having sex. She refused to participate in an interview with this provider, and walked away stating i don't need a provider. She was observed by this provider, pacing the [place]. Continue current treatment regimen. 01/23: disorganized and dangerous behaviors. voluntarily took IMs. court tomorrow. 01/24: remains disorganized. ran into staff member yesterday, postured and threatened other staff afterward. slept about 6.[address] this afternoon. 01/25/25: Staff 5 6 hours with broken sleep. Compliant with medication with lots of encouragement from yesterday, refused her vitamins in the morning. CT scan was negative, she fell early in the morning, witness her head hit the wall the trying to put her pants on. Slightly improved in mood with medication compliant. VPA level is 52,1 low side. However patient not consistently take it every day. We will recheck. He is on section 8. Pending Wei's order. Less irritable, less racing. 01/26/25: Mostly compliant with medication, to 250/750 mg of Depakote scheduled at bedtime. Labile, restless, poor boundaries, sexually inappropriate behavior, mood is aggravated . Disorganized. Slightly improving but not much. She is better in terms of compliant with medications. 01/27: mostly compliant with meds. improved from last week, more organized and less labile today. agreement reached on medications, reinstate risperidone as primary antipsychotic Tx, remove request for mood stabilizers, remove ativan. DC prolixin, begin taper of VPA, restart risperidone 2 BID, add thorazine 100 and valium 10 at HS to encourage sleep. awaiting med order. 01/28: last evening was pushing, attempting to kick and bite staff, shoulder-checked peer, exposing genitalia to 1:1 staff. took meds last night and this morning. court order received today, reviewed, medications adjusted to comply with order. reportedly more linear today, but pt declined to meet with MD after brief psychotic interaction with MD. 01/29: dysregulated, agitated behaviors continue last night. calmer days. refused VPA this morning. continue VPA taper, decrease from 500 BID to 250 TID as of today. increase HS seroquel from 300 mg to 400 mg as of tonight and HS valium from 10 mg to 15 mg as of tonight for sleep and sylwia. 01/30: same pattern of calm days through mid-afternoon, then decompensation. add third scheduled dosing of risperidone in the middle of the day, schedule valium in the morning and at 3 pm, otherwise continue current mgmt. increase HS seroquel if pt does not sleep more than several hours tonight. continue VPA taper tomorrow. 01/31: calm, morning. severe akathisia eves, unable to sleep or remain still. slept only 2.5 hours. due to 4 mg risperidone daily being inadequate to treat Sx and 6 mg causing severe akathisia, will DC risperidone in favor of a less potent antipsychotic, seroquel. schedule seroquel 100/100/500. taper VPA to 250 BID as of tomorrow. propranolol 20 TID started last night for akathisia, will continue for now. 02/01: no change - monitor akathisia decrease on new regimen 02/02: nicotine patch taper to 7 mg; seems to be doing better with switch to Seroquel and augmentation with Propranolol; primary team may f/u with further discussion of behavioral plan 02/03: much improved from last week. calm, linear, logical, topical. slept 6 hours each the last 3 nights. c/o sedation. decrease daytime valium from 5 BID to 2 BID. decrease daytime seroquel from 100 BID to 75 BID. taper VPA from 250 BID to 250 QHS. 02/04: remains much improved. no overt MSE abnormalities. c/o sedation, decrease seroquel from 75 BID to 50 BID and from 500 QHS to 400 QHS. DC VPA entirely. otherwise continue current mgmt. 02/05: backsliding today. irritable, erratic, more disorganized, labile. stating her intent to stop taking medications, demanding discharge. continue current mgmt. 02/06: much improved today. calm, logical, cogent and topical. pt would like to taper off of valium (addicting) and onto a proper mood stabilizer. legal department manager notified. DC daytime valium. restart prazosin due to c/o nightmares. decrease propranolol from 20 TID to 10 TID (should no longer be necessary as off of medications likely to cause akathisia). DC daytime seroquel tomorrow. 02/07: similar conversation to yesterday. DC daytime seroquel. awaiting word from legal re adding lithium. otherwise continue current mgmt. 02/08: keeping to self. irritable edge. pt reports feeling overwhelmed d/t room change. medication compliant. focused on returning home. denies SI/HI/VH/AH. per nursing, slept 6 hours last night. continue current tx plan. 02/09: irritable edge. medication compliant. focused on returning home. intrusive during a peer's treatment; declined to walk away when asked by staff multiple times; poor insight and judgment. pt became upset after meeting with her mother; pt stated, my mom says its my behavior why I'm still here. I think they are keeping me here because I locked myself in that room . Valium decreased to 10mg PO bedtime. 02/10: irritable. medication compliant. Perseverative on discharge. Patient reports sleeping well last night. Appears calmer today. She reports visit with her mother when well. Denies SI/HI/VH/AH. Attending groups. Continue current treatment plan. 02/11/25: Irritable, irrational regarding why she is still being here. Poor insight and poor judgment. Not thinks she has bipolar. She only believes she has has ADHD and autism, therefore she does not need to be here and that no reason to keep her here longer. As a future, she does not think she going to continue taking medication after discharge per nursing. Racing thoughts. At times she is calm, able to attend groups, and some what appropriate. Have good visit with brother and mom yesterday. Not able to discuss for medication change due to agitated/irritable mood. 02/12/25: Been sleeping well, no issue with appetite, attended groups, have visit with mom. Both mom and patient the nurse believe that patient is not manic or having any bipolar features. They only believe that she has ADHD and autism. Mom advocate for patient to be discharged. Mom claims that the treatment team has not ever reach out to her. Both of the agree to have a family meeting in the future. We will leave message to the team to set it up. Patient has some mood swing, but overall, continued to improve with help of the medication. She wants to be off from Valium, but do not want any other medication change. Both Seroquel and Valium is on [facility] order. No other safety concerns. 02/13/25: Slept well, compliant with medications, refused nicotine patch on. Observed visible and attending groups, irritable at times, hyper focused on discharge as her normal baseline of everyday. Do not want any medication change. Reports gaining 28 lb since she got here. Nutrition consult placed. We will add Adderall on allergy list which make her psychotic. Patient to nursing put it in her allergy list. Some labile mood, pressured speech. 02/14: continue current tx plan. 02/15/25: Slept well, manage meal intake, portion size, healthier snacks to control her weight gain. Met with the dietitian today. She also ask staff to pronounce the list of healthy/happy food. Family brought in some healthy snack for her. She was mad being wakened up to get vital signs in the morning by nursing staff. Denies suicidal thoughts, denies hallucinations. She asked questions regarding diagnosis. Educate her regarding psychosis that she came with. Explained with her regarding medication she has been taking here, she will be discharged with, and then work with the outpatient psychiatrist to continue with medication, making any change if necessary. She is more receptive with the plan, more rationale when she is not in the bad mood. She appreciates the time I spent talking to her today. She attended groups, visible. No ADLs issues. Can be irritable at times. Refused her propranolol in the morning. She took multivitamins later on of the day after she refused. Change nicotine patch to p.r.n.. 02/16/25: Reported that she was angry, other than that she feels mood more stable today. Nursing staff contacted this provider reported that patient in the past was allowed using the head phone at night to cancel out the noise. Patient asked if she was allowed to use it again. Patient focused on healthy food, eating yogurt only in the morning. Family brought in more seeds instead of eating unhealthy food from hospital. She also was irritable as someone touching her clothes in the washer. She has a couple visits today. She feels ready to leave and stable enough to go home to community. She is looking forward to talk to her attending this week regarding discharge. Denies other safety concerns. She has been irritable at times, but able to control her anger. She said this is her baseline, and being in here is make her more irritable. Had phones use overnight order was discontinued per policy. 02/17: calm, logical, cooperative. appearing overly controlled, unnatural in doing so. medications plan at our last meeting resurrected - start lithium, taper seroquel and valium. pt states she is open to mood stabilizers. MD informs pt he believes she lacks capacity presently and will notify family law attorney to communicate with pt's family law attorney. hospital family law attorney notified. continue current mgmt for now. Reason for continued inpatient stay Substantial Risk for: inability to function and rapid decompensation Time Spent With Patient Time: Total time managing care of this patient today __35__ minutes.
[2025-02-17 15:33] VITALS: BP 145/74; PULSE 91
[2025-02-17 20:00] VITALS: BP 126/67; PULSE 88; RESP 16; TEMP 37.7; O2SAT 99
[2025-02-17 22:20] VITALS: BP 124/68; PULSE 91
[2025-02-18 07:58] VITALS: BP 122/55; PULSE 94; RESP 16; TEMP 36.9; O2SAT 98
--- NOTE | 2025-02-18 13:30 | P.PNPSI_ITS ---
Subjective Subjective Date of Service: 02/18/25 Reason For Visit: Crisis Interim History: calm, cooperative. discuss her recent intrusive behaviors with peers and staff's difficulty redirecting her. pt able to express understanding of the message. expresses intention to comply but says sometimes it is hard for her. reports she slept well and her mood is stable. per staff, taking meds. PRN valium helpful yesterday morning. blunted affect. focused on discharge. slept 7 hours. concerned about HSV infection, RN examined pubic area and no lesions were visible. asking to shave pubic area. Mental Status Exam Mental Status Exam Narrative: Appearance: adequately dressed and groomed Behavior: no PMA/PMR Speech: incr amount, nml loudness. nml latency. TP: organized TC: germane, no delusions or paranoia expressed Mood: euthymic Affect: calm AH/VH: none expressed Insight/judgment: improved Memory/cog: alert, improving. Diagnostics Vital Signs (24Hr): Vital Signs - 24 hr 02/17/25 15:33 02/17/25 20:00 02/17/25 22:20 Temperature 100 F Pulse Rate 91 88 91 Respiratory Rate 16 Blood Pressure 145/74 H 126/67 124/68 Pulse Oximetry 99 Oxygen Delivery Method Room Air 02/18/25 07:58 Temperature 98.4 F Pulse Rate 94 Respiratory Rate 16 Blood Pressure 122/55 L Pulse Oximetry 98 Oxygen Delivery Method Room Air BMI result Body Mass Index 23.2 Labs 01/09/25 16:36 01/09/25 16:36 Imaging Radiology Impressions: ITS Impressions Hand X-Ray 01/16/25 11:30 IMPRESSION: Unremarkable right hand Electronically signed by: Casa Rush MD 01/16/2025 11:46 AM EDT RP Hand X-Ray 01/29/25 07:30 IMPRESSION: Unremarkable examination of the right hand. Electronically signed by: Obdulio Tolbert MD 01/30/2025 07:56 AM EDT RP Medications Medications Current Medications Acetaminophen (Acetaminophen 325 Mg Tablet) 650 mg PO Q6H PRN PRN Reason: Headache/Pain, Scale 1-10 Last Admin: 02/10/25 23:21 Dose: 650 mg Al Hydroxide/Mg Hydroxide (Magnesium Hydrox/Alum Hydrox 30 Ml Oral.Susp) 30 ml PO Q6H PRN PRN Reason: Heartburn/Nausea Last Admin: 01/30/25 14:06 Dose: 30 ml Artificial Tears (Artificial Tears 15 Ml Drops) 2 drop EYE-BOTH Q4H PRN PRN Reason: Dry Eyes Last Admin: 02/06/25 09:24 Dose: 2 drop Diazepam (Diazepam 5 Mg Tablet) 5 mg PO Q4H PRN PRN Reason: agitation Last Admin: 02/18/25 08:48 Dose: 5 mg Diazepam (Diazepam 10 Mg/2 Ml Cartridge) 5 mg IM TID PRN PRN Reason: refusal of seroquel or valium Last Admin: 02/04/25 20:13 Dose: 5 mg Diazepam (Diazepam 5 Mg Tablet) 10 mg PO BEDTIME VERONICA Last Admin: 02/17/25 22:21 Dose: 10 mg Docusate Sodium (Docusate Sodium 100 Mg Capsule) 100 mg PO BID PRN PRN Reason: Constipation Last Admin: 01/30/25 20:10 Dose: 100 mg Haloperidol Lactate (Haloperidol Lactate 5 Mg/Ml Vial) 5 mg IM TID PRN PRN Reason: refusal of scheduled seroquel Last Admin: 02/04/25 20:14 Dose: 5 mg Hydrocortisone (Hydrocortisone 2.5 % Rectal Cr 30 Gm Tube) 1 appl RI DAILY PRN PRN Reason: hemrroids Last Admin: 01/26/25 14:57 Dose: 1 appl Magnesium Hydroxide (Milk Of Magnesia 30 Ml Oral.Susp) 30 ml PO DAILY PRN PRN Reason: Constipation Last Admin: 01/26/25 14:59 Dose: 30 ml Multivitamins/Vitamin C (Multivitamin Tablet) 1 tab PO DAILY VEROINCA Last Admin: 02/18/25 08:48 Dose: 1 tab Nicotine (Nicotine 7 Mg Patch.Td24) 7 mg TRANSDERMA DAILY PRN PRN Reason: Nicotine craving Nicotine Polacrilex (Nicotine Polacrilex 2 Mg Gum) 4 mg BUCCAL Q2H PRN PRN Reason: Nicotine Cravings Last Admin: 01/30/25 18:46 Dose: 4 mg Polyethylene Glycol (Polyethylene Glycol 3350 17 Gm Powd.Pack) 17 gm PO DAILY PRN PRN Reason: constipation Prazosin HCl (Prazosin Hcl 1 Mg Capsule) 1 mg PO BEDTIME VERONICA; Protocol Last Admin: 02/17/25 22:21 Dose: 1 mg Propranolol HCl (Propranolol Hcl 10 Mg Tablet) 10 mg PO TID VERONICA; Protocol Last Admin: 02/18/25 08:47 Dose: 10 mg Quetiapine Fumarate (Quetiapine Fumarate 400 Mg Tablet) 400 mg PO BEDTIME VERONICA Last Admin: 02/17/25 22:21 Dose: 400 mg Allergies Allergies Allergy/AdvReac Type Severity Reaction Status Date / Time amphetamine (From Adderall) Allergy Severe psychosis/ Verified 02/13/25 22:40 Manic dextroamphetamine (From Allergy Severe psychosis/ Verified 02/13/25 22:40 Adderall) Manic olanzapine (From Zyprexa) AdvReac Rash Verified 12/31/24 18:41 Assessment & Plan Assessment & Plan (1) Psychosis: Status: Acute Code(s): F29 - Unspecified psychosis not due to a substance or known physiological condition Plan Ms. Sheridan is a 34 year-old woman who presents with s/s of psychosis, disorganized, some degree of paranoia. She had similar episode back in 2020. 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 I do suspect that there may be underlying psychiatric disorder that is triggered by amphetamine use but not necessarily caused by it. Further evaluation to clarify dx is needed. We discussed inpt level of care. We also discussed restarting risperidone 1mg po BID. low dose clonazepam. continue clonidine. 1. IPLOC 2. start risperidone 1mg po BID. Clonazepam 0.5mg po BID. 01/05: Continue current regimen and plans. 01/06: slept only 2 hours, disorganized, decompensated behaviors. unable to interact cogently. refusing risperidone, will offer seroquel instead. possible bipolar diathesis, T/C mood stabilizer. delirium also a possibility, as the mental status change since admission appears to be striking. 01/07: took seroquel 200 last night, slept 5.5 hours. more organized, linear, able to engage today. continue current mgmt. 01/08: refused seroquel last NOC, slept only 30 minutes. agitated, bizarre, disorganized today. commitment paperwork filed. 01/09: refused meds yesterday but got IMs due to behaviors (outbursts, touching peers, yelling, banging doors, pushed her sitter, climbing on tables and chairs. threatening to stab self with pens). more linear and engageable today, once again the day after having takenm medication. agrees to continue to take seroquel 200 mg QHS. 01/10: took seroquel last NOC and slept 4 hours overnight, but bizarre today. less agitation and intrusiveness than yesterday, but still bizarre and fairly intrusive. pt appears willing to take risperidone, will DC seroquel and return to dosing of risperidone 2 mg BID. took first dose this afternoon. court next monday. 01/11 very paranoid, fearful, taking medications 01/12 continue tx. 01/13: appears a bit more organized today than when not taking medications, although slow and processing poorly. declines to sign CV. commitment hearing tomorrow. 01/14: hearing continued until 01/24 for SINDY. add klonopin 0.5 BID ODT, change risperidone formulation to liquid (pt has been inducing vomiting repeatedly with toothbrush). hold toothbrush unless actively brushing teeth. continues interactive to some extent with MD today, but has been grabbing badges, touching others, and tried to vault into the nursing station in the past 24H. 01/15: IM medication after threatening to punch staff command and control officer with intrusive and aggressive behaviors toward peers. pt did not take klonopin as ordered yesterday. DC klonopin and start VPA 500 BID. per staff, running. tried to make herself vomit after taking PRN. labile. ate her feces in the shower and tried to feed it to her 1:1. crawling under tables. tried to jump into nurses station x2. took her shirt off and swinging it around. did not sleep at all. slept at 7:30am. 01/16: refusing VPA, taking risperidone. napped after IMs yesterday. has been bizarre and labile since. slept only 2 hours overnight. continue current mgmt. 01/17: agitated, bizarre, and aggressive behaviors yesterday (punching and kicking beard, stripping off in milieu, attempting to intimidate staff, grabbing stress balls out of staff's hands). did take VPA this morning on its being offered a second time. more calm today. taking risperidone. 01/18: intermittently refusing VPA, seems to be taking risperidone. asks MD if he is alive, then proposes elbow bump. accusing staff of stealing her things (phone), calling mother and special education inclusion teacher in the middle of the night. slept less than 4 hours. 01/19: more lucid today. concerned about risperidone weight gain. agrees to DC risperidone and try prolixin instead, starting at 2.5 BID. 01/20: very disorganized, bizarre, psychotic today. likely due to equivalent dosing of prolixin being given much lower than prior risperidone. as pt seems to be tolerating prolixin without issues, increase prolixin dosing from 2.5 BID to 5 BID. otherwise continue current mgmt. 01/21: less bizarre and disorganized, but still quite ill. variably compliant with medications. c/o leg pain, lowering self to floor; started cogentin 0.5 BID due to concern for dystonia. c/o nightmares, h/o prazosin with good effect. add prazosin 1 mg QHS as of tonight. 01/22: Patients states that she is good. She is scared of [place] herpes after having sex. She refused to participate in an interview with this provider, and walked away stating i don't need a provider. She was observed by this provider, pacing the [place]. Continue current treatment regimen. 01/23: disorganized and dangerous behaviors. voluntarily took IMs. court tomorrow. 01/24: remains disorganized. ran into staff member yesterday, postured and threatened other staff afterward. slept about 6.[address] afternoon. 01/25/25: Staff 5 6 hours with broken sleep. Compliant with medication with lots of encouragement from yesterday, refused her vitamins in the morning. CT scan was negative, she fell early in the morning, witness her head hit the wall the trying to put her pants on. Slightly improved in mood with medication compliant. VPA level is 52,1 low side. However patient not consistently take it every day. We will recheck. He is on section 8. Pending Wei's order. Less irritable, less racing. 01/26/25: Mostly compliant with medication, to 250/750 mg of Depakote scheduled at bedtime. Labile, restless, poor boundaries, sexually inappropriate behavior, mood is aggravated . Disorganized. Slightly improving but not much. She is better in terms of compliant with medications. 01/27: mostly compliant with meds. improved from last week, more organized and less labile today. agreement reached on medications, reinstate risperidone as primary antipsychotic Tx, remove request for mood stabilizers, remove ativan. DC prolixin, begin taper of VPA, restart risperidone 2 BID, add thorazine 100 and valium 10 at HS to encourage sleep. awaiting med order. 01/28: last evening was pushing, attempting to kick and bite staff, shoulder- checked peer, exposing genitalia to 1:1 staff. took meds last night and this morning. court order received today, reviewed, medications adjusted to comply with order. reportedly more linear today, but pt declined to meet with MD after brief psychotic interaction with MD. 01/29: dysregulated, agitated behaviors continue last night. calmer days. refused VPA this morning. continue VPA taper, decrease from 500 BID to 250 TID as of today. increase HS seroquel from 300 mg to 400 mg as of tonight and HS valium from 10 mg to 15 mg as of tonight for sleep and sylwia. 01/30: same pattern of calm days through mid-afternoon, then decompensation. add third scheduled dosing of risperidone in the middle of the day, schedule valium in the morning and at 3 pm, otherwise continue current mgmt. increase HS seroquel if pt does not sleep more than several hours tonight. continue VPA taper tomorrow. 01/31: calm, morning. severe akathisia eves, unable to sleep or remain still. slept only 2.5 hours. due to 4 mg risperidone daily being inadequate to treat Sx and 6 mg causing severe akathisia, will DC risperidone in favor of a less potent antipsychotic, seroquel. schedule seroquel 100/100/500. taper VPA to 250 BID as of tomorrow. propranolol 20 TID started last night for akathisia, will continue for now. 02/01: no change - monitor akathisia decrease on new regimen 02/02: nicotine patch taper to 7 mg; seems to be doing better with switch to Seroquel and augmentation with Propranolol; primary team may f/u with further discussion of behavioral plan 02/03: much improved from last week. calm, linear, logical, topical. slept 6 hours each the last 3 nights. c/o sedation. decrease daytime valium from 5 BID to 2 BID. decrease daytime seroquel from 100 BID to 75 BID. taper VPA from 250 BID to 250 QHS. 02/04: remains much improved. no overt MSE abnormalities. c/o sedation, decrease seroquel from 75 BID to 50 BID and from 500 QHS to 400 QHS. DC VPA entirely. otherwise continue current mgmt. 02/05: backsliding today. irritable, erratic, more disorganized, labile. stating her intent to stop taking medications, demanding discharge. continue current mgmt. 02/06: much improved today. calm, logical, cogent and topical. pt would like to taper off of valium (addicting) and onto a proper mood stabilizer. contract paralegal notified. DC daytime valium. restart prazosin due to c/o nightmares. decrease propranolol from 20 TID to 10 TID (should no longer be necessary as off of medications likely to cause akathisia). DC daytime seroquel tomorrow. 02/07: similar conversation to yesterday. DC daytime seroquel. awaiting word from legal re adding lithium. otherwise continue current mgmt. 02/08: keeping to self. irritable edge. pt reports feeling overwhelmed d/t room change. medication compliant. focused on returning home. denies SI/HI/VH/AH. per nursing, slept 6 hours last night. continue current tx plan. 02/09: irritable edge. medication compliant. focused on returning home. intrusive during a peer's treatment; declined to walk away when asked by staff multiple times; poor insight and judgment. pt became upset after meeting with her mother; pt stated, my mom says its my behavior why I'm still here. I think they are keeping me here because I locked myself in that room . Valium decreased to 10mg PO bedtime. 02/10: irritable. medication compliant. Perseverative on discharge. Patient reports sleeping well last night. Appears calmer today. She reports visit with her mother when well. Denies SI/HI/VH/AH. Attending groups. Continue current treatment plan. 02/11/25: Irritable, irrational regarding why she is still being here. Poor insight and poor judgment. Not thinks she has bipolar. She only believes she has has ADHD and autism, therefore she does not need to be here and that no reason to keep her here longer. As a future, she does not think she going to continue taking medication after discharge per nursing. Racing thoughts. At times she is calm, able to attend groups, and some what appropriate. Have good visit with brother and mom yesterday. Not able to discuss for medication change due to agitated/irritable mood. 02/12/25: Been sleeping well, no issue with appetite, attended groups, have visit with mom. Both mom and patient the nurse believe that patient is not manic or having any bipolar features. They only believe that she has ADHD and autism. Mom advocate for patient to be discharged. Mom claims that the treatment team has not ever reach out to her. Both of the agree to have a family meeting in the future. We will leave message to the team to set it up. Patient has some mood swing, but overall, continued to improve with help of the medication. She wants to be off from Valium, but do not want any other medication change. Both Seroquel and Valium is on [facility] order. No other safety concerns. 02/13/25: Slept well, compliant with medications, refused nicotine patch on. Observed visible and attending groups, irritable at times, hyper focused on discharge as her normal baseline of everyday. Do not want any medication change. Reports gaining 28 lb since she got here. Nutrition consult placed. We will add Adderall on allergy list which make her psychotic. Patient to nursing put it in her allergy list. Some labile mood, pressured speech. 02/14: continue current tx plan. 02/15/25: Slept well, manage meal intake, portion size, healthier snacks to control her weight gain. Met with the dietitian today. She also ask staff to pronounce the list of healthy/happy food. Family brought in some healthy snack for her. She was mad being wakened up to get vital signs in the morning by nursing staff. Denies suicidal thoughts, denies hallucinations. She asked questions regarding diagnosis. Educate her regarding psychosis that she came with. Explained with her regarding medication she has been taking here, she will be discharged with, and then work with the outpatient psychiatrist to continue with medication, making any change if necessary. She is more receptive with the plan, more rationale when she is not in the bad mood. She appreciates the time I spent talking to her today. She attended groups, visible. No ADLs issues. Can be irritable at times. Refused her propranolol in the morning. She took multivitamins later on of the day after she refused. Change nicotine patch to p.r.n.. 02/16/25: Reported that she was angry, other than that she feels mood more stable today. Nursing staff contacted this provider reported that patient in the past was allowed using the head phone at night to cancel out the noise. Patient asked if she was allowed to use it again. Patient focused on healthy food, eating yogurt only in the morning. Family brought in more seeds instead of eating unhealthy food from hospital. She also was irritable as someone touching her clothes in the washer. She has a couple visits today. She feels ready to leave and stable enough to go home to community. She is looking forward to talk to her attending this week regarding discharge. Denies other safety concerns. She has been irritable at times, but able to control her anger. She said this is her baseline, and being in here is make her more irritable. Had phones use overnight order was discontinued per policy. 02/17: calm, logical, cooperative. appearing overly controlled, unnatural in doing so. medications plan at our last meeting resurrected - start lithium, taper seroquel and valium. pt states she is open to mood stabilizers. MD informs pt he believes she lacks capacity presently and will notify engineering associate to communicate with pt's engineering associate. hospital engineering associate notified. continue current mgmt for now. 02/18: corresponding with engineering associate re stipulated agreement. pt intrusive with peers and resistant to redirection by staff. with MD pt is calm and cooperative, but attempting to engage in argument justifying her intrusive behavior. continue current mgmt. slept well. Reason for continued inpatient stay Substantial Risk for: harm to self, harm to others, inability to function and rapid decompensation Time Spent With Patient Time: Total time managing care of this patient today __25__ minutes.
[2025-02-18 21:15] VITALS: BP 110/70; PULSE 90; RESP 16; TEMP 36.8; O2SAT 99
[2025-02-18 22:03] VITALS: BP 133/74; PULSE 86
[2025-02-19 07:36] VITALS: BP 123/83; PULSE 99; RESP 16; TEMP 36.4; O2SAT 99
--- NOTE | 2025-02-19 12:09 | P.PNPSI_ITS ---
Subjective Subjective Date of Service: 02/19/25 Reason For Visit: Crisis Subjective Notes: [facility] Order and Section 8 Healthcare Proxy: No Guardianship: No Medical Problems Affecting Mental Status: No Interim History: Medical record and nursing notes reviewed; case discussed during rounds with team/nursing staff, and met with patient for supportive therapy/psychoeducation, as well as medication management. Slept for 6 hours, was medication compliant but refused propranolol 1 of the scheduled time yesterday, pleasant, cooperative, reasonable, working on healthy diet and healthy snack. She asked if she can have electric razor to trimmed the pubic hair area. Discussed community service organization director, not allowed. Shower this morning, seems more happy compared to over the weekend. Attended groups, can be labile. She asked for a lot of stuff knowing that is not even allowed. Medication Compliance: Yes (However, refused propranolol at 1500 yesterday ) Side effects from medications: No Attending Groups: Yes Review of Systems Acute medical concerns: No Medical Review of Systems: unchanged Review of Systems Review of Systems Constitutional: Denies fatigue and Denies fever(s) Cardiovascular: Denies chest pain and Denies dyspnea Respiratory: Denies dyspnea Gastrointestinal: Denies abdominal pain Psychiatric: denies suicidal ideation Endocrine: Denies fatigue Yes all other systems are reviewed and are negative Mental Status Exam Mental Status Exam Narrative: Appearance: adequately dressed and groomed Behavior: no PMA/PMR Speech: incr amount, nml loudness. nml latency. TP: organized TC: germane, no delusions or paranoia expressed Mood: euthymic Affect: calm but can be irritable at times. AH/VH: none expressed Insight/judgment: improved Memory/cog: alert, improving. Diagnostics Vital Signs (24Hr): Vital Signs - 24 hr 02/18/25 21:15 02/18/25 22:03 02/19/25 07:36 Temperature 98.3 F 97.5 F Pulse Rate 90 86 99 Respiratory Rate 16 16 Blood Pressure 110/70 133/74 123/83 Pulse Oximetry 99 99 Oxygen Delivery Method Room Air Room Air BMI result Body Mass Index 23.2 Labs 01/09/25 16:36 01/09/25 16:36 Imaging Radiology Impressions: ITS Impressions Hand X-Ray 01/16/25 11:30 IMPRESSION: Unremarkable right hand Electronically signed by: Casa Rush MD 01/16/2025 11:46 AM EDT RP Hand X-Ray 01/29/25 07:30 IMPRESSION: Unremarkable examination of the right hand. Electronically signed by: Obdulio Tolbert MD 01/30/2025 07:56 AM EDT RP Medications Medications Current Medications Acetaminophen (Acetaminophen 325 Mg Tablet) 650 mg PO Q6H PRN PRN Reason: Headache/Pain, Scale 1-10 Last Admin: 02/10/25 23:21 Dose: 650 mg Al Hydroxide/Mg Hydroxide (Magnesium Hydrox/Alum Hydrox 30 Ml Oral.Susp) 30 ml PO Q6H PRN PRN Reason: Heartburn/Nausea Last Admin: 01/30/25 14:06 Dose: 30 ml Artificial Tears (Artificial Tears 15 Ml Drops) 2 drop EYE-BOTH Q4H PRN PRN Reason: Dry Eyes Last Admin: 02/06/25 09:24 Dose: 2 drop Diazepam (Diazepam 5 Mg Tablet) 5 mg PO Q4H PRN PRN Reason: agitation Last Admin: 02/18/25 08:48 Dose: 5 mg Diazepam (Diazepam 10 Mg/2 Ml Cartridge) 5 mg IM TID PRN PRN Reason: refusal of seroquel or valium Last Admin: 02/04/25 20:13 Dose: 5 mg Diazepam (Diazepam 5 Mg Tablet) 10 mg PO BEDTIME VERONICA Last Admin: 02/18/25 22:02 Dose: 10 mg Docusate Sodium (Docusate Sodium 100 Mg Capsule) 100 mg PO BID PRN PRN Reason: Constipation Last Admin: 01/30/25 20:10 Dose: 100 mg Haloperidol Lactate (Haloperidol Lactate 5 Mg/Ml Vial) 5 mg IM TID PRN PRN Reason: refusal of scheduled seroquel Last Admin: 02/04/25 20:14 Dose: 5 mg Hydrocortisone (Hydrocortisone 2.5 % Rectal Cr 30 Gm Tube) 1 appl CO DAILY PRN PRN Reason: hemrroids Last Admin: 01/26/25 14:57 Dose: 1 appl Magnesium Hydroxide (Milk Of Magnesia 30 Ml Oral.Susp) 30 ml PO DAILY PRN PRN Reason: Constipation Last Admin: 01/26/25 14:59 Dose: 30 ml Multivitamins/Vitamin C (Multivitamin Tablet) 1 tab PO DAILY VERONICA Last Admin: 02/19/25 08:17 Dose: 1 tab Nicotine (Nicotine 7 Mg Patch.Td24) 7 mg TRANSDERMA DAILY PRN PRN Reason: Nicotine craving Nicotine Polacrilex (Nicotine Polacrilex 2 Mg Gum) 4 mg BUCCAL Q2H PRN PRN Reason: Nicotine Cravings Last Admin: 01/30/25 18:46 Dose: 4 mg Polyethylene Glycol (Polyethylene Glycol 3350 17 Gm Powd.Pack) 17 gm PO DAILY PRN PRN Reason: constipation Prazosin HCl (Prazosin Hcl 1 Mg Capsule) 1 mg PO BEDTIME VERONICA; Protocol Last Admin: 02/18/25 22:03 Dose: 1 mg Propranolol HCl (Propranolol Hcl 10 Mg Tablet) 10 mg PO TID VERONICA; Protocol Last Admin: 02/19/25 08:16 Dose: 10 mg Quetiapine Fumarate (Quetiapine Fumarate 400 Mg Tablet) 400 mg PO BEDTIME VERONICA Last Admin: 02/18/25 22:03 Dose: 400 mg Allergies Allergies Allergy/AdvReac Type Severity Reaction Status Date / Time amphetamine (From Adderall) Allergy Severe psychosis/ Verified 02/13/25 22:40 Manic dextroamphetamine (From Allergy Severe psychosis/ Verified 02/13/25 22:40 Adderall) Manic olanzapine (From Zyprexa) AdvReac Rash Verified 12/31/24 18:41 Assessment & Plan Assessment & Plan (1) Psychosis: Status: Acute Code(s): F29 - Unspecified psychosis not due to a substance or known physiological condition Plan Ms. Sheridan is a 34 year-old woman who presents with s/s of psychosis, disorganized, some degree of paranoia. She had similar episode back in 2020. 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 I do suspect that there may be underlying psychiatric disorder that is triggered by amphetamine use but not necessarily caused by it. Further evaluation to clarify dx is needed. We discussed inpt level of care. We also discussed restarting risperidone 1mg po BID. low dose clonazepam. continue clonidine. 1. IPLOC 2. start risperidone 1mg po BID. Clonazepam 0.5mg po BID. 01/05: Continue current regimen and plans. 01/06: slept only 2 hours, disorganized, decompensated behaviors. unable to interact cogently. refusing risperidone, will offer seroquel instead. possible bipolar diathesis, T/C mood stabilizer. delirium also a possibility, as the mental status change since admission appears to be striking. 01/07: took seroquel 200 last night, slept 5.5 hours. more organized, linear, able to engage today. continue current mgmt. 01/08: refused seroquel last NOC, slept only 30 minutes. agitated, bizarre, disorganized today. commitment paperwork filed. 01/09: refused meds yesterday but got IMs due to behaviors (outbursts, touching peers, yelling, banging doors, pushed her sitter, climbing on tables and chairs. threatening to stab self with pens). more linear and engageable today, once again the day after having takenm medication. agrees to continue to take seroquel 200 mg QHS. 01/10: took seroquel last NOC and slept 4 hours overnight, but bizarre today. less agitation and intrusiveness than yesterday, but still bizarre and fairly intrusive. pt appears willing to take risperidone, will DC seroquel and return to dosing of risperidone 2 mg BID. took first dose this afternoon. court next monday. 01/11 very paranoid, fearful, taking medications 01/12 continue tx. 01/13: appears a bit more organized today than when not taking medications, although slow and processing poorly. declines to sign CV. commitment hearing tomorrow. 01/14: hearing continued until 01/24 for SINDY. add klonopin 0.5 BID ODT, change risperidone formulation to liquid (pt has been inducing vomiting repeatedly with toothbrush). hold toothbrush unless actively brushing teeth. continues interactive to some extent with MD today, but has been grabbing badges, touching others, and tried to vault into the nursing station in the past 24H. 01/15: IM medication after threatening to punch staff internist office based only with intrusive and aggressive behaviors toward peers. pt did not take klonopin as ordered yesterday. DC klonopin and start VPA 500 BID. per staff, running. tried to make herself vomit after taking PRN. labile. ate her feces in the shower and tried to feed it to her 1:1. crawling under tables. tried to jump into nurses station x2. took her shirt off and swinging it around. did not sleep at all. slept at 7:30am. 01/16: refusing VPA, taking risperidone. napped after IMs yesterday. has been bizarre and labile since. slept only 2 hours overnight. continue current mgmt. 01/17: agitated, bizarre, and aggressive behaviors yesterday (punching and kicking beard, stripping off in milieu, attempting to intimidate staff, grabbing stress balls out of staff's hands). did take VPA this morning on its being offered a second time. more calm today. taking risperidone. 01/18: intermittently refusing VPA, seems to be taking risperidone. asks MD if he is alive, then proposes elbow bump. accusing staff of stealing her things (phone), calling mother and licensed land surveyor in the middle of the night. slept less than 4 hours. 01/19: more lucid today. concerned about risperidone weight gain. agrees to DC risperidone and try prolixin instead, starting at 2.5 BID. 01/20: very disorganized, bizarre, psychotic today. likely due to equivalent dosing of prolixin being given much lower than prior risperidone. as pt seems to be tolerating prolixin without issues, increase prolixin dosing from 2.5 BID to 5 BID. otherwise continue current mgmt. 01/21: less bizarre and disorganized, but still quite ill. variably compliant with medications. c/o leg pain, lowering self to floor; started cogentin 0.5 BID due to concern for dystonia. c/o nightmares, h/o prazosin with good effect. add prazosin 1 mg QHS as of tonight. 01/22: Patients states that she is good. She is scared of [place] herpes after having sex. She refused to participate in an interview with this provider, and walked away stating i don't need a provider. She was observed by this provider, pacing the [place]. Continue current treatment regimen. 01/23: disorganized and dangerous behaviors. voluntarily took IMs. court tomorrow. 01/24: remains disorganized. ran into staff member yesterday, postured and threatened other staff afterward. slept about 6.[address] afternoon. 01/25/25: Staff 5 6 hours with broken sleep. Compliant with medication with lots of encouragement from yesterday, refused her vitamins in the morning. CT scan was negative, she fell early in the morning, witness her head hit the wall the trying to put her pants on. Slightly improved in mood with medication compliant. VPA level is 52,1 low side. However patient not consistently take it every day. We will recheck. He is on section 8. Pending Wei's order. Less irritable, less racing. 01/26/25: Mostly compliant with medication, to 250/750 mg of Depakote scheduled at bedtime. Labile, restless, poor boundaries, sexually inappropriate behavior, mood is aggravated . Disorganized. Slightly improving but not much. She is better in terms of compliant with medications. 01/27: mostly compliant with meds. improved from last week, more organized and less labile today. agreement reached on medications, reinstate risperidone as primary antipsychotic Tx, remove request for mood stabilizers, remove ativan. DC prolixin, begin taper of VPA, restart risperidone 2 BID, add thorazine 100 and valium 10 at HS to encourage sleep. awaiting med order. 01/28: last evening was pushing, attempting to kick and bite staff, shoulder- checked peer, exposing genitalia to 1:1 staff. took meds last night and this morning. court order received today, reviewed, medications adjusted to comply with order. reportedly more linear today, but pt declined to meet with MD after brief psychotic interaction with MD. 01/29: dysregulated, agitated behaviors continue last night. calmer days. refused VPA this morning. continue VPA taper, decrease from 500 BID to 250 TID as of today. increase HS seroquel from 300 mg to 400 mg as of tonight and HS valium from 10 mg to 15 mg as of tonight for sleep and sylwia. 01/30: same pattern of calm days through mid-afternoon, then decompensation. add third scheduled dosing of risperidone in the middle of the day, schedule valium in the morning and at 3 pm, otherwise continue current mgmt. increase HS seroquel if pt does not sleep more than several hours tonight. continue VPA taper tomorrow. 01/31: calm, morning. severe akathisia eves, unable to sleep or remain still. slept only 2.5 hours. due to 4 mg risperidone daily being inadequate to treat Sx and 6 mg causing severe akathisia, will DC risperidone in favor of a less potent antipsychotic, seroquel. schedule seroquel 100/100/500. taper VPA to 250 BID as of tomorrow. propranolol 20 TID started last night for akathisia, will continue for now. 02/01: no change - monitor akathisia decrease on new regimen 02/02: nicotine patch taper to 7 mg; seems to be doing better with switch to Seroquel and augmentation with Propranolol; primary team may f/u with further discussion of behavioral plan 02/03: much improved from last week. calm, linear, logical, topical. slept 6 hours each the last 3 nights. c/o sedation. decrease daytime valium from 5 BID to 2 BID. decrease daytime seroquel from 100 BID to 75 BID. taper VPA from 250 BID to 250 QHS. 02/04: remains much improved. no overt MSE abnormalities. c/o sedation, decrease seroquel from 75 BID to 50 BID and from 500 QHS to 400 QHS. DC VPA entirely. otherwise continue current mgmt. 02/05: backsliding today. irritable, erratic, more disorganized, labile. stating her intent to stop taking medications, demanding discharge. continue current mgmt. 02/06: much improved today. calm, logical, cogent and topical. pt would like to taper off of valium (addicting) and onto a proper mood stabilizer. legal instruments examiner notified. DC daytime valium. restart prazosin due to c/o nightmares. decrease propranolol from 20 TID to 10 TID (should no longer be necessary as off of medications likely to cause akathisia). DC daytime seroquel tomorrow. 02/07: similar conversation to yesterday. DC daytime seroquel. awaiting word from legal re adding lithium. otherwise continue current mgmt. 02/08: keeping to self. irritable edge. pt reports feeling overwhelmed d/t room change. medication compliant. focused on returning home. denies SI/HI/VH/AH. per nursing, slept 6 hours last night. continue current tx plan. 02/09: irritable edge. medication compliant. focused on returning home. intrusive during a peer's treatment; declined to walk away when asked by staff multiple times; poor insight and judgment. pt became upset after meeting with her mother; pt stated, my mom says its my behavior why I'm still here. I think they are keeping me here because I locked myself in that room . Valium decreased to 10mg PO bedtime. 02/10: irritable. medication compliant. Perseverative on discharge. Patient reports sleeping well last night. Appears calmer today. She reports visit with her mother when well. Denies SI/HI/VH/AH. Attending groups. Continue current treatment plan. 02/11/25: Irritable, irrational regarding why she is still being here. Poor insight and poor judgment. Not thinks she has bipolar. She only believes she has has ADHD and autism, therefore she does not need to be here and that no reason to keep her here longer. As a future, she does not think she going to continue taking medication after discharge per nursing. Racing thoughts. At times she is calm, able to attend groups, and some what appropriate. Have good visit with brother and mom yesterday. Not able to discuss for medication change due to agitated/irritable mood. 02/12/25: Been sleeping well, no issue with appetite, attended groups, have visit with mom. Both mom and patient the nurse believe that patient is not manic or having any bipolar features. They only believe that she has ADHD and autism. Mom advocate for patient to be discharged. Mom claims that the treatment team has not ever reach out to her. Both of the agree to have a family meeting in the future. We will leave message to the team to set it up. Patient has some mood swing, but overall, continued to improve with help of the medication. She wants to be off from Valium, but do not want any other medication change. Both Seroquel and Valium is on [facility] order. No other safety concerns. 02/13/25: Slept well, compliant with medications, refused nicotine patch on. Observed visible and attending groups, irritable at times, hyper focused on discharge as her normal baseline of everyday. Do not want any medication change. Reports gaining 28 lb since she got here. Nutrition consult placed. We will add Adderall on allergy list which make her psychotic. Patient to nursing put it in her allergy list. Some labile mood, pressured speech. 02/14: continue current tx plan. 02/15/25: Slept well, manage meal intake, portion size, healthier snacks to control her weight gain. Met with the dietitian today. She also ask staff to pronounce the list of healthy/happy food. Family brought in some healthy snack for her. She was mad being wakened up to get vital signs in the morning by nursing staff. Denies suicidal thoughts, denies hallucinations. She asked questions regarding diagnosis. Educate her regarding psychosis that she came with. Explained with her regarding medication she has been taking here, she will be discharged with, and then work with the outpatient psychiatrist to continue with medication, making any change if necessary. She is more receptive with the plan, more rationale when she is not in the bad mood. She appreciates the time I spent talking to her today. She attended groups, visible. No ADLs issues. Can be irritable at times. Refused her propranolol in the morning. She took multivitamins later on of the day after she refused. Change nicotine patch to p.r.n.. 02/16/25: Reported that she was angry, other than that she feels mood more stable today. Nursing staff contacted this provider reported that patient in the past was allowed using the head phone at night to cancel out the noise. Patient asked if she was allowed to use it again. Patient focused on healthy food, eating yogurt only in the morning. Family brought in more seeds instead of eating unhealthy food from hospital. She also was irritable as someone touching her clothes in the washer. She has a couple visits today. She feels ready to leave and stable enough to go home to community. She is looking forward to talk to her attending this week regarding discharge. Denies other safety concerns. She has been irritable at times, but able to control her anger. She said this is her baseline, and being in here is make her more irritable. Had phones use overnight order was discontinued per policy. 02/17: calm, logical, cooperative. appearing overly controlled, unnatural in doing so. medications plan at our last meeting resurrected - start lithium, taper seroquel and valium. pt states she is open to mood stabilizers. informs pt he believes she lacks capacity presently and will notify solar electric installer to communicate with pt's solar electric installer. hospital solar electric installer notified. continue current mgmt for now. 02/18: corresponding with solar electric installer re stipulated agreement. pt intrusive with peers and resistant to redirection by staff. with MD pt is calm and cooperative, but attempting to engage in argument justifying her intrusive behavior. continue current mgmt. slept well. 02/19/25: showered in the morning, reasonable, , slept for 6 hours I was up for snack , compliant with meds except Propranonol at 1500 yesterday. She asked if she can use electric razor to trim the pubic hair which was not allowed per safety and unit policy. Continue working healthy diet and snack. 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 No major behavior issues. Sometimes ask for stuff she knows they are not allowed. Continue with the plan. Patient educated on: diagnosis, medication risk/benefits and therapeutic strategies Reason for continued inpatient stay Substantial Risk for: med/psych decompensation Time Spent With Patient Time: Total time managing care of this patient today ____ minutes.
[2025-02-19 15:11] VITALS: BP 134/78; PULSE 92
[2025-02-19 21:25] VITALS: BP 137/63; PULSE 72; RESP 18; TEMP 36.9; O2SAT 98
--- NOTE | 2025-02-20 05:40 | PC.NURSE ---
2100 Wei's order Seroquel omitted. patient requesting a smaller dose, on-call provider informed
[2025-02-20 07:00] VITALS: BMI 22.9
[2025-02-20 07:40] VITALS: BP 117/61; RESP 95; TEMP 36.4; O2SAT 99
--- NOTE | 2025-02-20 14:36 | HO.PSYCHPN ---
Subjective Subjective Date of Service: 02/20/25 Reason For Visit: Crisis Interim History: mischievous smile throughout. focussed on her belief she has autism, ADHD, and sex addiction. asking if these can be worked on from home, saying she does not need medications and is ready for discharge. discuss once again plan to start lithium and taper off of valium and seroquel. discussed need to review with her steam tender. given [facility] number. per staff, taking meds days, did refuse seroquel last night and did not get IM back-up. slept 6 hours. Mental Status Exam Mental Status Exam Narrative: Appearance: adequately dressed and groomed Behavior: no PMA/PMR Speech: incr amount, nml loudness. nml latency. TP: organized TC: discharge, feeling well Mood: euthymic Affect: calm AH/VH: none expressed Insight/judgment: impaired Memory/cog: alert, impaired. Diagnostics Vital Signs (24Hr): Vital Signs - 24 hr 02/19/25 15:11 02/19/25 21:25 02/20/25 07:40 Temperature 98.5 F 97.6 F Pulse Rate 92 72 Respiratory Rate 18 95 H Blood Pressure 134/78 137/63 117/61 Pulse Oximetry 98 99 Oxygen Delivery Method Room Air Room Air BMI result Body Mass Index 22.9 Labs 01/09/25 16:36 01/09/25 16:36 Imaging Radiology Impressions: ITS Impressions Hand X-Ray 01/16/25 11:30 IMPRESSION: Unremarkable right hand Electronically signed by: Casa Rush MD 01/16/2025 11:46 AM EDT RP Hand X-Ray 01/29/25 07:30 IMPRESSION: Unremarkable examination of the right hand. Electronically signed by: Obdulio Tolbert MD 01/30/2025 07:56 AM EDT RP Medications Medications Current Medications Acetaminophen (Acetaminophen 325 Mg Tablet) 650 mg PO Q6H PRN PRN Reason: Headache/Pain, Scale 1-10 Last Admin: 02/10/25 23:21 Dose: 650 mg Al Hydroxide/Mg Hydroxide (Magnesium Hydrox/Alum Hydrox 30 Ml Oral.Susp) 30 ml PO Q6H PRN PRN Reason: Heartburn/Nausea Last Admin: 01/30/25 14:06 Dose: 30 ml Artificial Tears (Artificial Tears 15 Ml Drops) 2 drop EYE-BOTH Q4H PRN PRN Reason: Dry Eyes Last Admin: 02/06/25 09:24 Dose: 2 drop Diazepam (Diazepam 5 Mg Tablet) 5 mg PO Q4H PRN PRN Reason: agitation Last Admin: 02/18/25 08:48 Dose: 5 mg Diazepam (Diazepam 10 Mg/2 Ml Cartridge) 5 mg IM TID PRN PRN Reason: refusal of seroquel or valium Last Admin: 02/04/25 20:13 Dose: 5 mg Diazepam (Diazepam 5 Mg Tablet) 10 mg PO BEDTIME VERONICA Last Admin: 02/19/25 22:22 Dose: 10 mg Docusate Sodium (Docusate Sodium 100 Mg Capsule) 100 mg PO BID PRN PRN Reason: Constipation Last Admin: 01/30/25 20:10 Dose: 100 mg Haloperidol Lactate (Haloperidol Lactate 5 Mg/Ml Vial) 5 mg IM TID PRN PRN Reason: refusal of scheduled seroquel Last Admin: 02/04/25 20:14 Dose: 5 mg Hydrocortisone (Hydrocortisone 2.5 % Rectal Cr 30 Gm Tube) 1 appl VT DAILY PRN PRN Reason: hemrroids Last Admin: 01/26/25 14:57 Dose: 1 appl Magnesium Hydroxide (Milk Of Magnesia 30 Ml Oral.Susp) 30 ml PO DAILY PRN PRN Reason: Constipation Last Admin: 01/26/25 14:59 Dose: 30 ml Multivitamins/Vitamin C (Multivitamin Tablet) 1 tab PO DAILY VERONICA Last Admin: 02/20/25 08:28 Dose: 1 tab Nicotine (Nicotine 7 Mg Patch.Td24) 7 mg TRANSDERMA DAILY PRN PRN Reason: Nicotine craving Nicotine Polacrilex (Nicotine Polacrilex 2 Mg Gum) 4 mg BUCCAL Q2H PRN PRN Reason: Nicotine Cravings Last Admin: 01/30/25 18:46 Dose: 4 mg Polyethylene Glycol (Polyethylene Glycol 3350 17 Gm Powd.Pack) 17 gm PO DAILY PRN PRN Reason: constipation Prazosin HCl (Prazosin Hcl 1 Mg Capsule) 1 mg PO BEDTIME VERONICA; Protocol Last Admin: 02/19/25 22:22 Dose: 1 mg Propranolol HCl (Propranolol Hcl 10 Mg Tablet) 10 mg PO TID VERONICA; Protocol Last Admin: 02/20/25 14:29 Dose: Not Given Quetiapine Fumarate (Quetiapine Fumarate 400 Mg Tablet) 400 mg PO BEDTIME VERONICA Last Admin: 02/19/25 22:24 Dose: Not Given Allergies Allergies Allergy/AdvReac Type Severity Reaction Status Date / Time amphetamine (From Adderall) Allergy Severe psychosis/ Verified 02/13/25 22:40 Manic dextroamphetamine (From Allergy Severe psychosis/ Verified 02/13/25 22:40 Adderall) Manic olanzapine (From Zyprexa) AdvReac Rash Verified 12/31/24 18:41 Assessment & Plan Assessment & Plan (1) Psychosis: Status: Acute Code(s): F29 - Unspecified psychosis not due to a substance or known physiological condition Plan Ms. Sheridan is a 34 year-old woman who presents with s/s of psychosis, disorganized, some degree of paranoia. She had similar episode back in 2020. 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 I do suspect that there may be underlying psychiatric disorder that is triggered by amphetamine use but not necessarily caused by it. Further evaluation to clarify dx is needed. We discussed inpt level of care. We also discussed restarting risperidone 1mg po BID. low dose clonazepam. continue clonidine. 1. IPLOC 2. start risperidone 1mg po BID. Clonazepam 0.5mg po BID. 01/05: Continue current regimen and plans. 01/06: slept only 2 hours, disorganized, decompensated behaviors. unable to interact cogently. refusing risperidone, will offer seroquel instead. possible bipolar diathesis, T/C mood stabilizer. delirium also a possibility, as the mental status change since admission appears to be striking. 01/07: took seroquel 200 last night, slept 5.5 hours. more organized, linear, able to engage today. continue current mgmt. 01/08: refused seroquel last NOC, slept only 30 minutes. agitated, bizarre, disorganized today. commitment paperwork filed. 01/09: refused meds yesterday but got IMs due to behaviors (outbursts, touching peers, yelling, banging doors, pushed her sitter, climbing on tables and chairs. threatening to stab self with pens). more linear and engageable today, once again the day after having takenm medication. agrees to continue to take seroquel 200 mg QHS. 01/10: took seroquel last NOC and slept 4 hours overnight, but bizarre today. less agitation and intrusiveness than yesterday, but still bizarre and fairly intrusive. pt appears willing to take risperidone, will DC seroquel and return to dosing of risperidone 2 mg BID. took first dose this afternoon. court next monday. 01/11 very paranoid, fearful, taking medications 01/12 continue tx. 01/13: appears a bit more organized today than when not taking medications, although slow and processing poorly. declines to sign CV. commitment hearing tomorrow. 01/14: hearing continued until 01/24 for SINDY. add klonopin 0.5 BID ODT, change risperidone formulation to liquid (pt has been inducing vomiting repeatedly with toothbrush). hold toothbrush unless actively brushing teeth. continues interactive to some extent with MD today, but has been grabbing badges, touching others, and tried to vault into the nursing station in the past 24H. 01/15: IM medication after threatening to punch medical staff physician with intrusive and aggressive behaviors toward peers. pt did not take klonopin as ordered yesterday. DC klonopin and start VPA 500 BID. per staff, running. tried to make herself vomit after taking PRN. labile. ate her feces in the shower and tried to feed it to her 1:1. crawling under tables. tried to jump into nurses station x2. took her shirt off and swinging it around. did not sleep at all. slept at 7:30am. 01/16: refusing VPA, taking risperidone. napped after IMs yesterday. has been bizarre and labile since. slept only 2 hours overnight. continue current mgmt. 01/17: agitated, bizarre, and aggressive behaviors yesterday (punching and kicking beard, stripping off in milieu, attempting to intimidate staff, grabbing stress balls out of staff's hands). did take VPA this morning on its being offered a second time. more calm today. taking risperidone. 01/18: intermittently refusing VPA, seems to be taking risperidone. asks MD if he is alive, then proposes elbow bump. accusing staff of stealing her things (phone), calling mother and steam tender in the middle of the night. slept less than 4 hours. 01/19: more lucid today. concerned about risperidone weight gain. agrees to DC risperidone and try prolixin instead, starting at 2.5 BID. 01/20: very disorganized, bizarre, psychotic today. likely due to equivalent dosing of prolixin being given much lower than prior risperidone. as pt seems to be tolerating prolixin without issues, increase prolixin dosing from 2.5 BID to 5 BID. otherwise continue current mgmt. 01/21: less bizarre and disorganized, but still quite ill. variably compliant with medications. c/o leg pain, lowering self to floor; started cogentin 0.5 BID due to concern for dystonia. c/o nightmares, h/o prazosin with good effect. add prazosin 1 mg QHS as of tonight. 01/22: Patients states that she is good. She is scared of [place] herpes after having sex. She refused to participate in an interview with this provider, and walked away stating i don't need a provider. She was observed by this provider, pacing the [place]. Continue current treatment regimen. 01/23: disorganized and dangerous behaviors. voluntarily took IMs. court tomorrow. 01/24: remains disorganized. ran into staff member yesterday, postured and threatened other staff afterward. slept about 6.[address] afternoon. 01/25/25: Staff 5 6 hours with broken sleep. Compliant with medication with lots of encouragement from yesterday, refused her vitamins in the morning. CT scan was negative, she fell early in the morning, witness her head hit the wall the trying to put her pants on. Slightly improved in mood with medication compliant. VPA level is 52,1 low side. However patient not consistently take it every day. We will recheck. He is on section 8. Pending Wei's order. Less irritable, less racing. 01/26/25: Mostly compliant with medication, to 250/750 mg of Depakote scheduled at bedtime. Labile, restless, poor boundaries, sexually inappropriate behavior, mood is aggravated . Disorganized. Slightly improving but not much. She is better in terms of compliant with medications. 01/27: mostly compliant with meds. improved from last week, more organized and less labile today. agreement reached on medications, reinstate risperidone as primary antipsychotic Tx, remove request for mood stabilizers, remove ativan. DC prolixin, begin taper of VPA, restart risperidone 2 BID, add thorazine 100 and valium 10 at HS to encourage sleep. awaiting med order. 01/28: last evening was pushing, attempting to kick and bite staff, shoulder-checked peer, exposing genitalia to 1:1 staff. took meds last night and this morning. court order received today, reviewed, medications adjusted to comply with order. reportedly more linear today, but pt declined to meet with MD after brief psychotic interaction with MD. 01/29: dysregulated, agitated behaviors continue last night. calmer days. refused VPA this morning. continue VPA taper, decrease from 500 BID to 250 TID as of today. increase HS seroquel from 300 mg to 400 mg as of tonight and HS valium from 10 mg to 15 mg as of tonight for sleep and sylwia. 01/30: same pattern of calm days through mid-afternoon, then decompensation. add third scheduled dosing of risperidone in the middle of the day, schedule valium in the morning and at 3 pm, otherwise continue current mgmt. increase HS seroquel if pt does not sleep more than several hours tonight. continue VPA taper tomorrow. 01/31: calm, morning. severe akathisia eves, unable to sleep or remain still. slept only 2.5 hours. due to 4 mg risperidone daily being inadequate to treat Sx and 6 mg causing severe akathisia, will DC risperidone in favor of a less potent antipsychotic, seroquel. schedule seroquel 100/100/500. taper VPA to 250 BID as of tomorrow. propranolol 20 TID started last night for akathisia, will continue for now. 02/01: no change - monitor akathisia decrease on new regimen 02/02: nicotine patch taper to 7 mg; seems to be doing better with switch to Seroquel and augmentation with Propranolol; primary team may f/u with further discussion of behavioral plan 02/03: much improved from last week. calm, linear, logical, topical. slept 6 hours each the last 3 nights. c/o sedation. decrease daytime valium from 5 BID to 2 BID. decrease daytime seroquel from 100 BID to 75 BID. taper VPA from 250 BID to 250 QHS. 02/04: remains much improved. no overt MSE abnormalities. c/o sedation, decrease seroquel from 75 BID to 50 BID and from 500 QHS to 400 QHS. DC VPA entirely. otherwise continue current mgmt. 02/05: backsliding today. irritable, erratic, more disorganized, labile. stating her intent to stop taking medications, demanding discharge. continue current mgmt. 02/06: much improved today. calm, logical, cogent and topical. pt would like to taper off of valium (addicting) and onto a proper mood stabilizer. complex commercial litigation paralegal notified. DC daytime valium. restart prazosin due to c/o nightmares. decrease propranolol from 20 TID to 10 TID (should no longer be necessary as off of medications likely to cause akathisia). DC daytime seroquel tomorrow. 02/07: similar conversation to yesterday. DC daytime seroquel. awaiting word from legal re adding lithium. otherwise continue current mgmt. 02/08: keeping to self. irritable edge. pt reports feeling overwhelmed d/t room change. medication compliant. focused on returning home. denies SI/HI/VH/AH. per nursing, slept 6 hours last night. continue current tx plan. 02/09: irritable edge. medication compliant. focused on returning home. intrusive during a peer's treatment; declined to walk away when asked by staff multiple times; poor insight and judgment. pt became upset after meeting with her mother; pt stated, my mom says its my behavior why I'm still here. I think they are keeping me here because I locked myself in that room . Valium decreased to 10mg PO bedtime. 02/10: irritable. medication compliant. Perseverative on discharge. Patient reports sleeping well last night. Appears calmer today. She reports visit with her mother when well. Denies SI/HI/VH/AH. Attending groups. Continue current treatment plan. 02/11/25: Irritable, irrational regarding why she is still being here. Poor insight and poor judgment. Not thinks she has bipolar. She only believes she has has ADHD and autism, therefore she does not need to be here and that no reason to keep her here longer. As a future, she does not think she going to continue taking medication after discharge per nursing. Racing thoughts. At times she is calm, able to attend groups, and some what appropriate. Have good visit with brother and mom yesterday. Not able to discuss for medication change due to agitated/irritable mood. 02/12/25: Been sleeping well, no issue with appetite, attended groups, have visit with mom. Both mom and patient the nurse believe that patient is not manic or having any bipolar features. They only believe that she has ADHD and autism. Mom advocate for patient to be discharged. Mom claims that the treatment team has not ever reach out to her. Both of the agree to have a family meeting in the future. We will leave message to the team to set it up. Patient has some mood swing, but overall, continued to improve with help of the medication. She wants to be off from Valium, but do not want any other medication change. Both Seroquel and Valium is on [facility] order. No other safety concerns. 02/13/25: Slept well, compliant with medications, refused nicotine patch on. Observed visible and attending groups, irritable at times, hyper focused on discharge as her normal baseline of everyday. Do not want any medication change. Reports gaining 28 lb since she got here. Nutrition consult placed. We will add Adderall on allergy list which make her psychotic. Patient to nursing put it in her allergy list. Some labile mood, pressured speech. 02/14: continue current tx plan. 02/15/25: Slept well, manage meal intake, portion size, healthier snacks to control her weight gain. Met with the dietitian today. She also ask staff to pronounce the list of healthy/happy food. Family brought in some healthy snack for her. She was mad being wakened up to get vital signs in the morning by nursing staff. Denies suicidal thoughts, denies hallucinations. She asked questions regarding diagnosis. Educate her regarding psychosis that she came with. Explained with her regarding medication she has been taking here, she will be discharged with, and then work with the outpatient psychiatrist to continue with medication, making any change if necessary. She is more receptive with the plan, more rationale when she is not in the bad mood. She appreciates the time I spent talking to her today. She attended groups, visible. No ADLs issues. Can be irritable at times. Refused her propranolol in the morning. She took multivitamins later on of the day after she refused. Change nicotine patch to p.r.n.. 02/16/25: Reported that she was angry, other than that she feels mood more stable today. Nursing staff contacted this provider reported that patient in the past was allowed using the head phone at night to cancel out the noise. Patient asked if she was allowed to use it again. Patient focused on healthy food, eating yogurt only in the morning. Family brought in more seeds instead of eating unhealthy food from hospital. She also was irritable as someone touching her clothes in the washer. She has a couple visits today. She feels ready to leave and stable enough to go home to community. She is looking forward to talk to her attending this week regarding discharge. Denies other safety concerns. She has been irritable at times, but able to control her anger. She said this is her baseline, and being in here is make her more irritable. Had phones use overnight order was discontinued per policy. 02/17: calm, logical, cooperative. appearing overly controlled, unnatural in doing so. medications plan at our last meeting resurrected - start lithium, taper seroquel and valium. pt states she is open to mood stabilizers. informs pt he believes she lacks capacity presently and will notify privacy attorney to communicate with pt's privacy attorney. hospital privacy attorney notified. continue current mgmt for now. 02/18: corresponding with privacy attorney re stipulated agreement. pt intrusive with peers and resistant to redirection by staff. with pt is calm and cooperative, but attempting to engage in argument justifying her intrusive behavior. continue current mgmt. slept well. 02/19/25: showered in the morning, reasonable, , slept for 6 hours I was up for snack , compliant with meds except Propranonol at 1500 yesterday. She asked if she can use electric razor to trim the pubic hair which was not allowed per safety and unit policy. Continue working healthy diet and snack. 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 No major behavior issues. Sometimes ask for stuff she knows they are not allowed. Continue with the plan. 02/20: refused seroquel last night, did not receive IM back-up. appears with bizarre smile today, believes she doesn't need medications and is ready to discharge. 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 plan for lithium in lieu of valium and seroquel, ideally, reviewed. pt appears to have very poor retention, as this plan has been discussed numerous times. pt was encouraged to discuss with her privacy attorney and was given her privacy attorney's contact information ([facility] number). Reason for continued inpatient stay Substantial Risk for: inability to function Time Spent With Patient Time: Total time managing care of this patient today __35__ minutes.
[2025-02-20 20:00] VITALS: BP 137/73; PULSE 86; RESP 16; TEMP 36.7; O2SAT 98
[2025-02-20 21:06] VITALS: BP 137/73
[2025-02-20 21:12] VITALS: BP 137/73; PULSE 86
[2025-02-21 08:00] VITALS: BP 148/83; PULSE 108; RESP 16; TEMP 37.1; O2SAT 98
--- NOTE | 2025-02-21 09:29 | PC.NURSE ---
Pt had elevated BP 148/83 HR 108. Pt declined propanolol. Dr. birdie Franklin aware
--- NOTE | 2025-02-21 11:30 | P.PNPSI_ITS ---
Subjective Subjective Date of Service: 02/21/25 Reason For Visit: Crisis Interim History: very substantial decompensation in mental status. disorganized thoughts with very poor attention, concentration, and memory performance. asking questions and then talking over answers and unable to attend to answers. no recollection of events that happened a few moments before. zero insight into mental illness. c/o sexual frustration and asking how MD planned to help her with that problem in the hospital. per staff, irritable, labile. saying she won't take meds after discharge. refused PO meds last night and then accepted them as IMs were about to be given. asked for tylenol, then threw it away once it was given to her. Mental Status Exam Mental Status Exam Narrative: Appearance: adequately dressed and groomed Behavior: no PMA/PMR Speech: incr amount, nml loudness. decr latency. TP: disorganized TC: discharge, feeling well Mood: euthymic Affect: calm, bizarre, blunted AH/VH: none expressed Insight/judgment: impaired Memory/cog: alert, impaired. Diagnostics Vital Signs (24Hr): Vital Signs - 24 hr 02/20/25 20:00 02/20/25 21:06 02/20/25 21:12 Temperature 98.0 F Pulse Rate 86 86 Respiratory Rate 16 Blood Pressure 137/73 137/73 137/73 Pulse Oximetry 98 Oxygen Delivery Method Room Air 02/21/25 08:00 Temperature 98.7 F Pulse Rate 108 H Respiratory Rate 16 Blood Pressure 148/83 H Pulse Oximetry 98 Oxygen Delivery Method Room Air BMI result Body Mass Index 22.9 Labs 01/09/25 16:36 01/09/25 16:36 Imaging Radiology Impressions: ITS Impressions Hand X-Ray 01/16/25 11:30 IMPRESSION: Unremarkable right hand Electronically signed by: Casa Rush MD 01/16/2025 11:46 AM EDT RP Hand X-Ray 01/29/25 07:30 IMPRESSION: Unremarkable examination of the right hand. Electronically signed by: Obdulio Tolbert MD 01/30/2025 07:56 AM EDT RP Medications Medications Current Medications Acetaminophen (Acetaminophen 325 Mg Tablet) 650 mg PO Q6H PRN PRN Reason: Headache/Pain, Scale 1-10 Last Admin: 02/10/25 23:21 Dose: 650 mg Al Hydroxide/Mg Hydroxide (Magnesium Hydrox/Alum Hydrox 30 Ml Oral.Susp) 30 ml PO Q6H PRN PRN Reason: Heartburn/Nausea Last Admin: 01/30/25 14:06 Dose: 30 ml Artificial Tears (Artificial Tears 15 Ml Drops) 2 drop EYE-BOTH Q4H PRN PRN Reason: Dry Eyes Last Admin: 02/06/25 09:24 Dose: 2 drop Diazepam (Diazepam 5 Mg Tablet) 5 mg PO Q4H PRN PRN Reason: agitation Last Admin: 02/18/25 08:48 Dose: 5 mg Diazepam (Diazepam 10 Mg/2 Ml Cartridge) 5 mg IM TID PRN PRN Reason: refusal of seroquel or valium Last Admin: 02/04/25 20:13 Dose: 5 mg Diazepam (Diazepam 5 Mg Tablet) 10 mg PO BEDTIME [facility] Last Admin: 02/20/25 21:13 Dose: 10 mg Diazepam (Diazepam 5 Mg Tablet) 5 mg PO BID@0900,1500 [facility] Last Admin: 02/21/25 11:13 Dose: 5 mg Docusate Sodium (Docusate Sodium 100 Mg Capsule) 100 mg PO BID PRN PRN Reason: Constipation Last Admin: 01/30/25 20:10 Dose: 100 mg Haloperidol Lactate (Haloperidol Lactate 5 Mg/Ml Vial) 5 mg IM TID PRN PRN Reason: refusal of scheduled seroquel Last Admin: 02/04/25 20:14 Dose: 5 mg Hydrocortisone (Hydrocortisone 2.5 % Rectal Cr 30 Gm Tube) 1 appl AR DAILY PRN PRN Reason: hemrroids Last Admin: 01/26/25 14:57 Dose: 1 appl Magnesium Hydroxide (Milk Of Magnesia 30 Ml Oral.Susp) 30 ml PO DAILY PRN PRN Reason: Constipation Last Admin: 01/26/25 14:59 Dose: 30 ml Multivitamins/Vitamin C (Multivitamin Tablet) 1 tab PO DAILY [facility] Last Admin: 02/21/25 08:24 Dose: 1 tab Nicotine (Nicotine 7 Mg Patch.Td24) 7 mg TRANSDERMA DAILY PRN PRN Reason: Nicotine craving Nicotine Polacrilex (Nicotine Polacrilex 2 Mg Gum) 4 mg BUCCAL Q2H PRN PRN Reason: Nicotine Cravings Last Admin: 01/30/25 18:46 Dose: 4 mg Polyethylene Glycol (Polyethylene Glycol 3350 17 Gm Powd.Pack) 17 gm PO DAILY PRN PRN Reason: constipation Prazosin HCl (Prazosin Hcl 1 Mg Capsule) 1 mg PO BEDTIME VERONICA; Protocol Last Admin: 02/20/25 21:06 Dose: 1 mg Propranolol HCl (Propranolol Hcl 10 Mg Tablet) 10 mg PO TID VERONICA; Protocol Last Admin: 02/21/25 09:19 Dose: Not Given Quetiapine Fumarate (Quetiapine Fumarate 400 Mg Tablet) 400 mg PO BEDTIME VERONICA Last Admin: 02/20/25 21:13 Dose: 400 mg Quetiapine Fumarate (Quetiapine Fumarate 25 Mg Tablet) 75 mg PO BID@0900,1500 [facility] Last Admin: 02/21/25 11:13 Dose: 75 mg Allergies Allergies Allergy/AdvReac Type Severity Reaction Status Date / Time amphetamine (From Adderall) Allergy Severe psychosis/ Verified 02/13/25 22:40 Manic dextroamphetamine (From Allergy Severe psychosis/ Verified 02/13/25 22:40 Adderall) Manic olanzapine (From Zyprexa) AdvReac Rash Verified 12/31/24 18:41 Assessment & Plan Assessment & Plan (1) Psychosis: Status: Acute Code(s): F29 - Unspecified psychosis not due to a substance or known physiological condition Plan Ms. Sheridan is a 34 year-old woman who presents with s/s of psychosis, disorganized, some degree of paranoia. She had similar episode back in 2020. 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 I do suspect that there may be underlying psychiatric disorder that is triggered by amphetamine use but not necessarily caused by it. Further evaluation to clarify dx is needed. We discussed inpt level of care. We also discussed restarting risperidone 1mg po BID. low dose clonazepam. continue clonidine. 1. IPLOC 2. start risperidone 1mg po BID. Clonazepam 0.5mg po BID. 01/05: Continue current regimen and plans. 01/06: slept only 2 hours, disorganized, decompensated behaviors. unable to interact cogently. refusing risperidone, will offer seroquel instead. possible bipolar diathesis, T/C mood stabilizer. delirium also a possibility, as the mental status change since admission appears to be striking. 01/07: took seroquel 200 last night, slept 5.5 hours. more organized, linear, able to engage today. continue current mgmt. 01/08: refused seroquel last NOC, slept only 30 minutes. agitated, bizarre, disorganized today. commitment paperwork filed. 01/09: refused meds yesterday but got IMs due to behaviors (outbursts, touching peers, yelling, banging doors, pushed her sitter, climbing on tables and chairs. threatening to stab self with pens). more linear and engageable today, once again the day after having takenm medication. agrees to continue to take seroquel 200 mg QHS. 01/10: took seroquel last NOC and slept 4 hours overnight, but bizarre today. less agitation and intrusiveness than yesterday, but still bizarre and fairly intrusive. pt appears willing to take risperidone, will DC seroquel and return to dosing of risperidone 2 mg BID. took first dose this afternoon. court next monday. 01/11 very paranoid, fearful, taking medications 01/12 continue tx. 01/13: appears a bit more organized today than when not taking medications, although slow and processing poorly. declines to sign CV. commitment hearing tomorrow. 01/14: hearing continued until 01/24 for SINDY. add klonopin 0.5 BID ODT, change risperidone formulation to liquid (pt has been inducing vomiting repeatedly with toothbrush). hold toothbrush unless actively brushing teeth. continues interactive to some extent with MD today, but has been grabbing badges, touching others, and tried to vault into the nursing station in the past 24H. 01/15: IM medication after threatening to punch waitstaff with intrusive and aggressive behaviors toward peers. pt did not take klonopin as ordered yesterday. DC klonopin and start VPA 500 BID. per staff, running. tried to make herself vomit after taking PRN. labile. ate her feces in the shower and tried to feed it to her 1:1. crawling under tables. tried to jump into nurses station x2. took her shirt off and swinging it around. did not sleep at all. slept at 7:30am. 01/16: refusing VPA, taking risperidone. napped after IMs yesterday. has been bizarre and labile since. slept only 2 hours overnight. continue current mgmt. 01/17: agitated, bizarre, and aggressive behaviors yesterday (punching and kicking beard, stripping off in milieu, attempting to intimidate staff, grabbing stress balls out of staff's hands). did take VPA this morning on its being offered a second time. more calm today. taking risperidone. 01/18: intermittently refusing VPA, seems to be taking risperidone. asks MD if he is alive, then proposes elbow bump. accusing staff of stealing her things (phone), calling mother and tunnel form placing supervisor in the middle of the night. slept less than 4 hours. 01/19: more lucid today. concerned about risperidone weight gain. agrees to DC risperidone and try prolixin instead, starting at 2.5 BID. 01/20: very disorganized, bizarre, psychotic today. likely due to equivalent dosing of prolixin being given much lower than prior risperidone. as pt seems to be tolerating prolixin without issues, increase prolixin dosing from 2.5 BID to 5 BID. otherwise continue current mgmt. 01/21: less bizarre and disorganized, but still quite ill. variably compliant with medications. c/o leg pain, lowering self to floor; started cogentin 0.5 BID due to concern for dystonia. c/o nightmares, h/o prazosin with good effect. add prazosin 1 mg QHS as of tonight. 01/22: Patients states that she is good. She is scared of [place] herpes after having sex. She refused to participate in an interview with this provider, and walked away stating i don't need a provider. She was observed by this provider, pacing the [place]. Continue current treatment regimen. 01/23: disorganized and dangerous behaviors. voluntarily took IMs. court tomorrow. 01/24: remains disorganized. ran into staff member yesterday, postured and threatened other staff afterward. slept about 6.[address] this afternoon. 01/25/25: Staff 5 6 hours with broken sleep. Compliant with medication with lots of encouragement from yesterday, refused her vitamins in the morning. CT scan was negative, she fell early in the morning, witness her head hit the wall the trying to put her pants on. Slightly improved in mood with medication compliant. VPA level is 52,1 low side. However patient not consistently take it every day. We will recheck. He is on section 8. Pending Wei's order. Less irritable, less racing. 01/26/25: Mostly compliant with medication, to 250/750 mg of Depakote scheduled at bedtime. Labile, restless, poor boundaries, sexually inappropriate behavior, mood is aggravated . Disorganized. Slightly improving but not much. She is better in terms of compliant with medications. 01/27: mostly compliant with meds. improved from last week, more organized and less labile today. agreement reached on medications, reinstate risperidone as primary antipsychotic Tx, remove request for mood stabilizers, remove ativan. DC prolixin, begin taper of VPA, restart risperidone 2 BID, add thorazine 100 and valium 10 at HS to encourage sleep. awaiting med order. 01/28: last evening was pushing, attempting to kick and bite staff, shoulder- checked peer, exposing genitalia to 1:1 staff. took meds last night and this morning. court order received today, reviewed, medications adjusted to comply with order. reportedly more linear today, but pt declined to meet with MD after brief psychotic interaction with MD. 01/29: dysregulated, agitated behaviors continue last night. calmer days. refused VPA this morning. continue VPA taper, decrease from 500 BID to 250 TID as of today. increase HS seroquel from 300 mg to 400 mg as of tonight and HS valium from 10 mg to 15 mg as of tonight for sleep and sylwia. 01/30: same pattern of calm days through mid-afternoon, then decompensation. add third scheduled dosing of risperidone in the middle of the day, schedule valium in the morning and at 3 pm, otherwise continue current mgmt. increase HS seroquel if pt does not sleep more than several hours tonight. continue VPA taper tomorrow. 01/31: calm, morning. severe akathisia eves, unable to sleep or remain still. slept only 2.5 hours. due to 4 mg risperidone daily being inadequate to treat Sx and 6 mg causing severe akathisia, will DC risperidone in favor of a less potent antipsychotic, seroquel. schedule seroquel 100/100/500. taper VPA to 250 BID as of tomorrow. propranolol 20 TID started last night for akathisia, will continue for now. 02/01: no change - monitor akathisia decrease on new regimen 02/02: nicotine patch taper to 7 mg; seems to be doing better with switch to Seroquel and augmentation with Propranolol; primary team may f/u with further discussion of behavioral plan 02/03: much improved from last week. calm, linear, logical, topical. slept 6 hours each the last 3 nights. c/o sedation. decrease daytime valium from 5 BID to 2 BID. decrease daytime seroquel from 100 BID to 75 BID. taper VPA from 250 BID to 250 QHS. 02/04: remains much improved. no overt MSE abnormalities. c/o sedation, decrease seroquel from 75 BID to 50 BID and from 500 QHS to 400 QHS. DC VPA entirely. otherwise continue current mgmt. 02/05: backsliding today. irritable, erratic, more disorganized, labile. stating her intent to stop taking medications, demanding discharge. continue current mgmt. 02/06: much improved today. calm, logical, cogent and topical. pt would like to taper off of valium (addicting) and onto a proper mood stabilizer. legal advisor notified. DC daytime valium. restart prazosin due to c/o nightmares. decrease propranolol from 20 TID to 10 TID (should no longer be necessary as off of medications likely to cause akathisia). DC daytime seroquel tomorrow. 02/07: similar conversation to yesterday. DC daytime seroquel. awaiting word from legal re adding lithium. otherwise continue current mgmt. 02/08: keeping to self. irritable edge. pt reports feeling overwhelmed d/t room change. medication compliant. focused on returning home. denies SI/HI/VH/AH. per nursing, slept 6 hours last night. continue current tx plan. 02/09: irritable edge. medication compliant. focused on returning home. intrusive during a peer's treatment; declined to walk away when asked by staff multiple times; poor insight and judgment. pt became upset after meeting with her mother; pt stated, my mom says its my behavior why I'm still here. I think they are keeping me here because I locked myself in that room . Valium decreased to 10mg PO bedtime. 02/10: irritable. medication compliant. Perseverative on discharge. Patient reports sleeping well last night. Appears calmer today. She reports visit with her mother when well. Denies SI/HI/VH/AH. Attending groups. Continue current treatment plan. 02/11/25: Irritable, irrational regarding why she is still being here. Poor insight and poor judgment. Not thinks she has bipolar. She only believes she has has ADHD and autism, therefore she does not need to be here and that no reason to keep her here longer. As a future, she does not think she going to continue taking medication after discharge per nursing. Racing thoughts. At times she is calm, able to attend groups, and some what appropriate. Have good visit with brother and mom yesterday. Not able to discuss for medication change due to agitated/irritable mood. 02/12/25: Been sleeping well, no issue with appetite, attended groups, have visit with mom. Both mom and patient the nurse believe that patient is not manic or having any bipolar features. They only believe that she has ADHD and autism. Mom advocate for patient to be discharged. Mom claims that the treatment team has not ever reach out to her. Both of the agree to have a family meeting in the future. We will leave message to the team to set it up. Patient has some mood swing, but overall, continued to improve with help of the medication. She wants to be off from Valium, but do not want any other medication change. Both Seroquel and Valium is on [facility] order. No other safety concerns. 02/13/25: Slept well, compliant with medications, refused nicotine patch on. Observed visible and attending groups, irritable at times, hyper focused on discharge as her normal baseline of everyday. Do not want any medication change. Reports gaining 28 lb since she got here. Nutrition consult placed. We will add Adderall on allergy list which make her psychotic. Patient to nursing put it in her allergy list. Some labile mood, pressured speech. 02/14: continue current tx plan. 02/15/25: Slept well, manage meal intake, portion size, healthier snacks to control her weight gain. Met with the dietitian today. She also ask staff to pronounce the list of healthy/happy food. Family brought in some healthy snack for her. She was mad being wakened up to get vital signs in the morning by nursing staff. Denies suicidal thoughts, denies hallucinations. She asked questions regarding diagnosis. Educate her regarding psychosis that she came with. Explained with her regarding medication she has been taking here, she will be discharged with, and then work with the outpatient psychiatrist to continue with medication, making any change if necessary. She is more receptive with the plan, more rationale when she is not in the bad mood. She appreciates the time I spent talking to her today. She attended groups, visible. No ADLs issues. Can be irritable at times. Refused her propranolol in the morning. She took multivitamins later on of the day after she refused. Change nicotine patch to p.r.n.. 02/16/25: Reported that she was angry, other than that she feels mood more stable today. Nursing staff contacted this provider reported that patient in the past was allowed using the head phone at night to cancel out the noise. Patient asked if she was allowed to use it again. Patient focused on healthy food, eating yogurt only in the morning. Family brought in more seeds instead of eating unhealthy food from hospital. She also was irritable as someone touching her clothes in the washer. She has a couple visits today. She feels ready to leave and stable enough to go home to community. She is looking forward to talk to her attending this week regarding discharge. Denies other safety concerns. She has been irritable at times, but able to control her anger. She said this is her baseline, and being in here is make her more irritable. Had phones use overnight order was discontinued per policy. 02/17: calm, logical, cooperative. appearing overly controlled, unnatural in doing so. medications plan at our last meeting resurrected - start lithium, taper seroquel and valium. pt states she is open to mood stabilizers. informs pt he believes she lacks capacity presently and will notify shampooer to communicate with pt's shampooer. hospital shampooer notified. continue current mgmt for now. 02/18: corresponding with shampooer re stipulated agreement. pt intrusive with peers and resistant to redirection by staff. with MD pt is calm and cooperative, but attempting to engage in argument justifying her intrusive behavior. continue current mgmt. slept well. 02/19/25: showered in the morning, reasonable, , slept for 6 hours I was up for snack , compliant with meds except Propranonol at 1500 yesterday. She asked if she can use electric razor to trim the pubic hair which was not allowed per safety and unit policy. Continue working healthy diet and snack. 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 No major behavior issues. Sometimes ask for stuff she knows they are not allowed. Continue with the plan. 02/20: refused seroquel last night, did not receive IM back-up. appears with bizarre smile today, believes she doesn't need medications and is ready to discharge. 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 plan for lithium in lieu of valium and seroquel, ideally, reviewed. pt appears to have very poor retention, as this plan has been discussed numerous times. pt was encouraged to discuss with her shampooer and was given her shampooer's contact information ([facility] number). 02/21: talking about not taking meds once discharged. refusing meds then taking them last second prior to IM administration. labile, irritable. very disorganized today, severely impaired cognitive performance. restart valium 5 and seroquel 75 BID at 0900, 1500. otherwise continue current mgmt. awaiting word from talent development consultant re stipulated agreement for mood stabilizers. Reason for continued inpatient stay Substantial Risk for: inability to function and rapid decompensation Time Spent With Patient Time: Total time managing care of this patient today __35__ minutes.
[2025-02-21] MEDS: Calcium + Vitamin D 250 MG TABLET PO (17:24)
[2025-02-21 21:00] VITALS: BP 123/72; PULSE 95; RESP 16; TEMP 36.9; O2SAT 97
[2025-02-22 07:15] VITALS: BP 126/58; PULSE 100; RESP 20; TEMP 36.8; O2SAT 99
[2025-02-22 08:51] VITALS: BP 126/58; PULSE 100
[2025-02-22] MEDS: Calcium + Vitamin D 250 MG TABLET PO (08:54)
--- NOTE | 2025-02-22 09:54 | HO.PSYCHPN ---
Subjective Subjective Date of Service: 02/22/25 Reason For Visit: Crisis Subjective Notes: [facility] Order and Section 8 Interim History: Patient was seen and discussed in rounds today. Records and plans were reviewed. She continues to be taking meds and supervised for 30 minutes. She has been making strange comments to other people, asking them strange questions etc.. She is also complaining of a tooth pain from a cavity. Orajel is ordered. No SI. No dangerous behaviors. No other changes Review of Systems Review of Systems Yes all other systems are reviewed and are negative Mental Status Exam Mental Status Exam Narrative: In today's visit she is alert, pleasant and interactive. Speech is normal. Moderate eye contact. Affect is appropriate, bizarre. No acute signs of psychosis. Denies AVH. Cognitively she is disorganized. No SI. Judgment is marginal Diagnostics Vital Signs (24Hr): Vital Signs - 24 hr 02/21/25 21:00 02/22/25 07:15 02/22/25 08:51 Temperature 98.5 F 98.2 F Pulse Rate 95 100 100 Respiratory Rate 16 20 Blood Pressure 123/72 126/58 L 126/58 L Pulse Oximetry 97 99 Oxygen Delivery Method Room Air Room Air BMI result Body Mass Index 22.9 Labs 01/09/25 16:36 01/09/25 16:36 Imaging Radiology Impressions: ITS Impressions Hand X-Ray 01/16/25 11:30 IMPRESSION: Unremarkable right hand Electronically signed by: Casa Rush MD 01/16/2025 11:46 AM EDT RP Hand X-Ray 01/29/25 07:30 IMPRESSION: Unremarkable examination of the right hand. Electronically signed by: Obduloi Tolbert MD 01/30/2025 07:56 AM EDT RP Medications Medications Current Medications Acetaminophen (Acetaminophen 325 Mg Tablet) 650 mg PO Q6H PRN PRN Reason: Headache/Pain, Scale 1-10 Last Admin: 02/22/25 00:51 Dose: 650 mg Al Hydroxide/Mg Hydroxide (Magnesium Hydrox/Alum Hydrox 30 Ml Oral.Susp) 30 ml PO Q6H PRN PRN Reason: Heartburn/Nausea Last Admin: 01/30/25 14:06 Dose: 30 ml Artificial Tears (Artificial Tears 15 Ml Drops) 2 drop EYE-BOTH Q4H PRN PRN Reason: Dry Eyes Last Admin: 02/06/25 09:24 Dose: 2 drop Benzocaine (Benzocaine 20 % Oral Gel 14 Gm Tube) 1 appl MUCOUS MEM QID PRN; Protocol PRN Reason: Pain, Mild 1-3,fever,headache Calcium Carbonate/Cholecalciferol (Calcium + Vitamin D 250 Mg Tablet) 250 mg PO BIDWM [facility] Last Admin: 02/22/25 08:54 Dose: 250 mg Diazepam (Diazepam 5 Mg Tablet) 5 mg PO Q4H PRN PRN Reason: agitation Last Admin: 02/18/25 08:48 Dose: 5 mg Diazepam (Diazepam 10 Mg/2 Ml Cartridge) 5 mg IM TID PRN PRN Reason: refusal of seroquel or valium Last Admin: 02/04/25 20:13 Dose: 5 mg Diazepam (Diazepam 5 Mg Tablet) 10 mg PO BEDTIME [facility] Last Admin: 02/21/25 21:13 Dose: 10 mg Diazepam (Diazepam 5 Mg Tablet) 5 mg PO BID@0900,1500 [facility] Last Admin: 02/22/25 08:54 Dose: 5 mg Docusate Sodium (Docusate Sodium 100 Mg Capsule) 100 mg PO BID PRN PRN Reason: Constipation Last Admin: 01/30/25 20:10 Dose: 100 mg Haloperidol Lactate (Haloperidol Lactate 5 Mg/Ml Vial) 5 mg IM TID PRN PRN Reason: refusal of scheduled seroquel Last Admin: 02/04/25 20:14 Dose: 5 mg Hydrocortisone (Hydrocortisone 2.5 % Rectal Cr 30 Gm Tube) 1 appl NE DAILY PRN PRN Reason: hemrroids Last Admin: 01/26/25 14:57 Dose: 1 appl Magnesium Hydroxide (Milk Of Magnesia 30 Ml Oral.Susp) 30 ml PO DAILY PRN PRN Reason: Constipation Last Admin: 01/26/25 14:59 Dose: 30 ml Multivitamins/Vitamin C (Multivitamin Tablet) 1 tab PO DAILY [facility] Last Admin: 02/22/25 08:54 Dose: 1 tab Nicotine (Nicotine 7 Mg Patch.Td24) 7 mg TRANSDERMA DAILY PRN PRN Reason: Nicotine craving Nicotine Polacrilex (Nicotine Polacrilex 2 Mg Gum) 4 mg BUCCAL Q2H PRN PRN Reason: Nicotine Cravings Last Admin: 02/21/25 17:26 Dose: 4 mg Polyethylene Glycol (Polyethylene Glycol 3350 17 Gm Powd.Pack) 17 gm PO DAILY PRN PRN Reason: constipation Prazosin HCl (Prazosin Hcl 1 Mg Capsule) 1 mg PO BEDTIME VERONICA; Protocol Last Admin: 02/21/25 21:13 Dose: 1 mg Propranolol HCl (Propranolol Hcl 10 Mg Tablet) 10 mg PO TID VERONICA; Protocol Last Admin: 02/22/25 08:51 Dose: 10 mg Quetiapine Fumarate (Quetiapine Fumarate 400 Mg Tablet) 400 mg PO BEDTIME VERONICA Last Admin: 02/21/25 21:13 Dose: 400 mg Quetiapine Fumarate (Quetiapine Fumarate 25 Mg Tablet) 75 mg PO BID@0900,1500 VERONICA Last Admin: 02/22/25 08:51 Dose: 75 mg Allergies Allergies Allergy/AdvReac Type Severity Reaction Status Date / Time amphetamine (From Adderall) Allergy Severe psychosis/ Verified 02/13/25 22:40 Manic dextroamphetamine (From Allergy Severe psychosis/ Verified 02/13/25 22:40 Adderall) Manic olanzapine (From Zyprexa) AdvReac Rash Verified 12/31/24 18:41 Assessment & Plan Assessment & Plan (1) Psychosis: Status: Acute Code(s): F29 - Unspecified psychosis not due to a substance or known physiological condition Plan Ms. Sheridan is a 34 year-old woman who presents with s/s of psychosis, disorganized, some degree of paranoia. She had similar episode back in 2020. 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 I do suspect that there may be underlying psychiatric disorder that is triggered by amphetamine use but not necessarily caused by it. Further evaluation to clarify dx is needed. We discussed inpt level of care. We also discussed restarting risperidone 1mg po BID. low dose clonazepam. continue clonidine. 1. IPLOC 2. start risperidone 1mg po BID. Clonazepam 0.5mg po BID. 01/05: Continue current regimen and plans. 01/06: slept only 2 hours, disorganized, decompensated behaviors. unable to interact cogently. refusing risperidone, will offer seroquel instead. possible bipolar diathesis, T/C mood stabilizer. delirium also a possibility, as the mental status change since admission appears to be striking. 01/07: took seroquel 200 last night, slept 5.5 hours. more organized, linear, able to engage today. continue current mgmt. 01/08: refused seroquel last NOC, slept only 30 minutes. agitated, bizarre, disorganized today. commitment paperwork filed. 01/09: refused meds yesterday but got IMs due to behaviors (outbursts, touching peers, yelling, banging doors, pushed her sitter, climbing on tables and chairs. threatening to stab self with pens). more linear and engageable today, once again the day after having takenm medication. agrees to continue to take seroquel 200 mg QHS. 01/10: took seroquel last NOC and slept 4 hours overnight, but bizarre today. less agitation and intrusiveness than yesterday, but still bizarre and fairly intrusive. pt appears willing to take risperidone, will DC seroquel and return to dosing of risperidone 2 mg BID. took first dose this afternoon. court next monday. 01/11 very paranoid, fearful, taking medications 01/12 continue tx. 01/13: appears a bit more organized today than when not taking medications, although slow and processing poorly. declines to sign CV. commitment hearing tomorrow. 01/14: hearing continued until 01/24 for SINDY. add klonopin 0.5 BID ODT, change risperidone formulation to liquid (pt has been inducing vomiting repeatedly with toothbrush). hold toothbrush unless actively brushing teeth. continues interactive to some extent with MD today, but has been grabbing badges, touching others, and tried to vault into the nursing station in the past 24H. 01/15: IM medication after threatening to punch clinical staff rn with intrusive and aggressive behaviors toward peers. pt did not take klonopin as ordered yesterday. DC klonopin and start VPA 500 BID. per staff, running. tried to make herself vomit after taking PRN. labile. ate her feces in the shower and tried to feed it to her 1:1. crawling under tables. tried to jump into nurses station x2. took her shirt off and swinging it around. did not sleep at all. slept at 7:30am. 01/16: refusing VPA, taking risperidone. napped after IMs yesterday. has been bizarre and labile since. slept only 2 hours overnight. continue current mgmt. 01/17: agitated, bizarre, and aggressive behaviors yesterday (punching and kicking beard, stripping off in milieu, attempting to intimidate staff, grabbing stress balls out of staff's hands). did take VPA this morning on its being offered a second time. more calm today. taking risperidone. 01/18: intermittently refusing VPA, seems to be taking risperidone. asks MD if he is alive, then proposes elbow bump. accusing staff of stealing her things (phone), calling mother and conservation planner in the middle of the night. slept less than 4 hours. 01/19: more lucid today. concerned about risperidone weight gain. agrees to DC risperidone and try prolixin instead, starting at 2.5 BID. 01/20: very disorganized, bizarre, psychotic today. likely due to equivalent dosing of prolixin being given much lower than prior risperidone. as pt seems to be tolerating prolixin without issues, increase prolixin dosing from 2.5 BID to 5 BID. otherwise continue current mgmt. 01/21: less bizarre and disorganized, but still quite ill. variably compliant with medications. c/o leg pain, lowering self to floor; started cogentin 0.5 BID due to concern for dystonia. c/o nightmares, h/o prazosin with good effect. add prazosin 1 mg QHS as of tonight. 01/22: Patients states that she is good. She is scared of [place] herpes after having sex. She refused to participate in an interview with this provider, and walked away stating i don't need a provider. She was observed by this provider, pacing the [place]. Continue current treatment regimen. 01/23: disorganized and dangerous behaviors. voluntarily took IMs. court tomorrow. 01/24: remains disorganized. ran into staff member yesterday, postured and threatened other staff afterward. slept about 6.[address] this afternoon. 01/25/25: Staff 5 6 hours with broken sleep. Compliant with medication with lots of encouragement from yesterday, refused her vitamins in the morning. CT scan was negative, she fell early in the morning, witness her head hit the wall the trying to put her pants on. Slightly improved in mood with medication compliant. VPA level is 52,1 low side. However patient not consistently take it every day. We will recheck. He is on section 8. Pending Wei's order. Less irritable, less racing. 01/26/25: Mostly compliant with medication, to 250/750 mg of Depakote scheduled at bedtime. Labile, restless, poor boundaries, sexually inappropriate behavior, mood is aggravated . Disorganized. Slightly improving but not much. She is better in terms of compliant with medications. 01/27: mostly compliant with meds. improved from last week, more organized and less labile today. agreement reached on medications, reinstate risperidone as primary antipsychotic Tx, remove request for mood stabilizers, remove ativan. DC prolixin, begin taper of VPA, restart risperidone 2 BID, add thorazine 100 and valium 10 at HS to encourage sleep. awaiting med order. 01/28: last evening was pushing, attempting to kick and bite staff, shoulder-checked peer, exposing genitalia to 1:1 staff. took meds last night and this morning. court order received today, reviewed, medications adjusted to comply with order. reportedly more linear today, but pt declined to meet with MD after brief psychotic interaction with MD. 01/29: dysregulated, agitated behaviors continue last night. calmer days. refused VPA this morning. continue VPA taper, decrease from 500 BID to 250 TID as of today. increase HS seroquel from 300 mg to 400 mg as of tonight and HS valium from 10 mg to 15 mg as of tonight for sleep and sylwia. 01/30: same pattern of calm days through mid-afternoon, then decompensation. add third scheduled dosing of risperidone in the middle of the day, schedule valium in the morning and at 3 pm, otherwise continue current mgmt. increase HS seroquel if pt does not sleep more than several hours tonight. continue VPA taper tomorrow. 01/31: calm, morning. severe akathisia eves, unable to sleep or remain still. slept only 2.5 hours. due to 4 mg risperidone daily being inadequate to treat Sx and 6 mg causing severe akathisia, will DC risperidone in favor of a less potent antipsychotic, seroquel. schedule seroquel 100/100/500. taper VPA to 250 BID as of tomorrow. propranolol 20 TID started last night for akathisia, will continue for now. 02/01: no change - monitor akathisia decrease on new regimen 02/02: nicotine patch taper to 7 mg; seems to be doing better with switch to Seroquel and augmentation with Propranolol; primary team may f/u with further discussion of behavioral plan 02/03: much improved from last week. calm, linear, logical, topical. slept 6 hours each the last 3 nights. c/o sedation. decrease daytime valium from 5 BID to 2 BID. decrease daytime seroquel from 100 BID to 75 BID. taper VPA from 250 BID to 250 QHS. 02/04: remains much improved. no overt MSE abnormalities. c/o sedation, decrease seroquel from 75 BID to 50 BID and from 500 QHS to 400 QHS. DC VPA entirely. otherwise continue current mgmt. 02/05: backsliding today. irritable, erratic, more disorganized, labile. stating her intent to stop taking medications, demanding discharge. continue current mgmt. 02/06: much improved today. calm, logical, cogent and topical. pt would like to taper off of valium (addicting) and onto a proper mood stabilizer. legal billing analyst notified. DC daytime valium. restart prazosin due to c/o nightmares. decrease propranolol from 20 TID to 10 TID (should no longer be necessary as off of medications likely to cause akathisia). DC daytime seroquel tomorrow. 02/07: similar conversation to yesterday. DC daytime seroquel. awaiting word from legal re adding lithium. otherwise continue current mgmt. 02/08: keeping to self. irritable edge. pt reports feeling overwhelmed d/t room change. medication compliant. focused on returning home. denies SI/HI/VH/AH. per nursing, slept 6 hours last night. continue current tx plan. 02/09: irritable edge. medication compliant. focused on returning home. intrusive during a peer's treatment; declined to walk away when asked by staff multiple times; poor insight and judgment. pt became upset after meeting with her mother; pt stated, my mom says its my behavior why I'm still here. I think they are keeping me here because I locked myself in that room . Valium decreased to 10mg PO bedtime. 02/10: irritable. medication compliant. Perseverative on discharge. Patient reports sleeping well last night. Appears calmer today. She reports visit with her mother when well. Denies SI/HI/VH/AH. Attending groups. Continue current treatment plan. 02/11/25: Irritable, irrational regarding why she is still being here. Poor insight and poor judgment. Not thinks she has bipolar. She only believes she has has ADHD and autism, therefore she does not need to be here and that no reason to keep her here longer. As a future, she does not think she going to continue taking medication after discharge per nursing. Racing thoughts. At times she is calm, able to attend groups, and some what appropriate. Have good visit with brother and mom yesterday. Not able to discuss for medication change due to agitated/irritable mood. 02/12/25: Been sleeping well, no issue with appetite, attended groups, have visit with mom. Both mom and patient the nurse believe that patient is not manic or having any bipolar features. They only believe that she has ADHD and autism. Mom advocate for patient to be discharged. Mom claims that the treatment team has not ever reach out to her. Both of the agree to have a family meeting in the future. We will leave message to the team to set it up. Patient has some mood swing, but overall, continued to improve with help of the medication. She wants to be off from Valium, but do not want any other medication change. Both Seroquel and Valium is on Muniz order. No other safety concerns. 02/13/25: Slept well, compliant with medications, refused nicotine patch on. Observed visible and attending groups, irritable at times, hyper focused on discharge as her normal baseline of everyday. Do not want any medication change. Reports gaining 28 lb since she got here. Nutrition consult placed. We will add Adderall on allergy list which make her psychotic. Patient to nursing put it in her allergy list. Some labile mood, pressured speech. 02/14: continue current tx plan. 02/15/25: Slept well, manage meal intake, portion size, healthier snacks to control her weight gain. Met with the dietitian today. She also ask staff to pronounce the list of healthy/happy food. Family brought in some healthy snack for her. She was mad being wakened up to get vital signs in the morning by nursing staff. Denies suicidal thoughts, denies hallucinations. She asked questions regarding diagnosis. Educate her regarding psychosis that she came with. Explained with her regarding medication she has been taking here, she will be discharged with, and then work with the outpatient psychiatrist to continue with medication, making any change if necessary. She is more receptive with the plan, more rationale when she is not in the bad mood. She appreciates the time I spent talking to her today. She attended groups, visible. No ADLs issues. Can be irritable at times. Refused her propranolol in the morning. She took multivitamins later on of the day after she refused. Change nicotine patch to p.r.n.. 02/16/25: Reported that she was angry, other than that she feels mood more stable today. Nursing staff contacted this provider reported that patient in the past was allowed using the head phone at night to cancel out the noise. Patient asked if she was allowed to use it again. Patient focused on healthy food, eating yogurt only in the morning. Family brought in more seeds instead of eating unhealthy food from hospital. She also was irritable as someone touching her clothes in the washer. She has a couple visits today. She feels ready to leave and stable enough to go home to community. She is looking forward to talk to her attending this week regarding discharge. Denies other safety concerns. She has been irritable at times, but able to control her anger. She said this is her baseline, and being in here is make her more irritable. Had phones use overnight order was discontinued per policy. 02/17: calm, logical, cooperative. appearing overly controlled, unnatural in doing so. medications plan at our last meeting resurrected - start lithium, taper seroquel and valium. pt states she is open to mood stabilizers. informs pt he believes she lacks capacity presently and will notify mushroom picker to communicate with pt's mushroom picker. hospital mushroom picker notified. continue current mgmt for now. 02/18: corresponding with mushroom picker re stipulated agreement. pt intrusive with peers and resistant to redirection by staff. with MD pt is calm and cooperative, but attempting to engage in argument justifying her intrusive behavior. continue current mgmt. slept well. 02/19/25: showered in the morning, reasonable, , slept for 6 hours I was up for snack , compliant with meds except Propranonol at 1500 yesterday. She asked if she can use electric razor to trim the pubic hair which was not allowed per safety and unit policy. Continue working healthy diet and snack. 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 No major behavior issues. Sometimes ask for stuff she knows they are not allowed. Continue with the plan. 02/20: refused seroquel last night, did not receive IM back-up. appears with bizarre smile today, believes she doesn't need medications and is ready to discharge. 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 plan for lithium in lieu of valium and seroquel, ideally, reviewed. pt appears to have very poor retention, as this plan has been discussed numerous times. pt was encouraged to discuss with her mushroom picker and was given her mushroom picker's contact information ([facility] number). 02/21: talking about not taking meds once discharged. refusing meds then taking them last second prior to IM administration. labile, irritable. very disorganized today, severely impaired cognitive performance. restart valium 5 and seroquel 75 BID at 0900, 1500. otherwise continue current mgmt. awaiting word from webmaster re stipulated agreement for mood stabilizers. 02/22: Continue current regimen and plans. Ortonya ordered. Patient educated on: medication risk/benefits Reason for continued inpatient stay Substantial Risk for: med/psych decompensation Time Spent With Patient Time: Total time managing care of this patient today ____ minutes.
[2025-02-22 14:41] VITALS: BP 114/69; PULSE 97
[2025-02-22] MEDS: Benzocaine 20 % Oral Gel 14 GM TUBE 1 APPL MUCOUS MEM (14:53)
[2025-02-22 20:15] VITALS: BP 120/71; PULSE 95; RESP 16; TEMP 36.6; O2SAT 97
[2025-02-23] MEDS: Benzocaine 20 % Oral Gel 14 GM TUBE 1 APPL MUCOUS MEM (06:08)
[2025-02-23 07:10] VITALS: BP 108/53; PULSE 92; RESP 16; TEMP 36.4; O2SAT 99
[2025-02-23 08:34] VITALS: BP 108/53; PULSE 92
[2025-02-23] MEDS: Calcium + Vitamin D 250 MG TABLET PO ×2 (08:34→16:39)
--- NOTE | 2025-02-23 08:51 | HO.PSYCHPN ---
Subjective Subjective Date of Service: 02/23/25 Reason For Visit: Crisis Subjective Notes: [facility] Order and Section 8 Interim History: Patient was seen and discussed in rounds today. Records and plans were reviewed. She had a better day but continues to go around asking strange questions from people. No incidence of agitation or aggressivity. She has been mostly medication compliant with supervision and encouragement. Eating and sleeping adequately. Questions about her medications discussed. No SI. No changes were made. Review of Systems Review of Systems Yes all other systems are reviewed and are negative Mental Status Exam Mental Status Exam Narrative: In today's visit she is alert, pleasant and interactive. Speech is normal. Moderate eye contact. Affect is appropriate slightly bizarre. No acute signs of psychosis. Denies AVH. Cognitively she is disorganized. No SI. Judgment is marginal Diagnostics Vital Signs (24Hr): Vital Signs - 24 hr 02/22/25 14:41 02/22/25 20:15 02/23/25 07:10 Temperature 98 F 97.6 F Pulse Rate 97 95 92 Respiratory Rate 16 16 Blood Pressure 114/69 120/71 108/53 L Pulse Oximetry 97 99 Oxygen Delivery Method Room Air Room Air 02/23/25 08:34 Temperature Pulse Rate 92 Respiratory Rate Blood Pressure 108/53 L Pulse Oximetry Oxygen Delivery Method BMI result Body Mass Index 22.9 Labs 01/09/25 16:36 01/09/25 16:36 Imaging Radiology Impressions: ITS Impressions Hand X-Ray 01/16/25 11:30 IMPRESSION: Unremarkable right hand Electronically signed by: Casa Rush MD 01/16/2025 11:46 AM EDT RP Hand X-Ray 01/29/25 07:30 IMPRESSION: Unremarkable examination of the right hand. Electronically signed by: Obdulio Tolbert MD 01/30/2025 07:56 AM EDT RP Medications Medications Current Medications Acetaminophen (Acetaminophen 325 Mg Tablet) 650 mg PO Q6H PRN PRN Reason: Headache/Pain, Scale 1-10 Last Admin: 02/22/25 11:47 Dose: 650 mg Al Hydroxide/Mg Hydroxide (Magnesium Hydrox/Alum Hydrox 30 Ml Oral.Susp) 30 ml PO Q6H PRN PRN Reason: Heartburn/Nausea Last Admin: 01/30/25 14:06 Dose: 30 ml Artificial Tears (Artificial Tears 15 Ml Drops) 2 drop EYE-BOTH Q4H PRN PRN Reason: Dry Eyes Last Admin: 02/06/25 09:24 Dose: 2 drop Benzocaine (Benzocaine 20 % Oral Gel 14 Gm Tube) 1 appl MUCOUS MEM QID PRN; Protocol PRN Reason: Pain, Mild 1-3,fever,headache Last Admin: 02/23/25 06:08 Dose: 1 appl Calcium Carbonate/Cholecalciferol (Calcium + Vitamin D 250 Mg Tablet) 250 mg PO BIDWM [facility] Last Admin: 02/23/25 08:34 Dose: 250 mg Diazepam (Diazepam 5 Mg Tablet) 5 mg PO Q4H PRN PRN Reason: agitation Last Admin: 02/18/25 08:48 Dose: 5 mg Diazepam (Diazepam 10 Mg/2 Ml Cartridge) 5 mg IM TID PRN PRN Reason: refusal of seroquel or valium Last Admin: 02/04/25 20:13 Dose: 5 mg Diazepam (Diazepam 5 Mg Tablet) 10 mg PO BEDTIME [facility] Last Admin: 02/22/25 20:26 Dose: 10 mg Diazepam (Diazepam 5 Mg Tablet) 5 mg PO BID@0900,1500 [facility] Last Admin: 02/23/25 08:36 Dose: 5 mg Docusate Sodium (Docusate Sodium 100 Mg Capsule) 100 mg PO BID PRN PRN Reason: Constipation Last Admin: 01/30/25 20:10 Dose: 100 mg Haloperidol Lactate (Haloperidol Lactate 5 Mg/Ml Vial) 5 mg IM TID PRN PRN Reason: refusal of scheduled seroquel Last Admin: 02/04/25 20:14 Dose: 5 mg Hydrocortisone (Hydrocortisone 2.5 % Rectal Cr 30 Gm Tube) 1 appl TN DAILY PRN PRN Reason: hemrroids Last Admin: 01/26/25 14:57 Dose: 1 appl Magnesium Hydroxide (Milk Of Magnesia 30 Ml Oral.Susp) 30 ml PO DAILY PRN PRN Reason: Constipation Last Admin: 01/26/25 14:59 Dose: 30 ml Multivitamins/Vitamin C (Multivitamin Tablet) 1 tab PO DAILY [facility] Last Admin: 02/23/25 08:36 Dose: 1 tab Nicotine (Nicotine 7 Mg Patch.Td24) 7 mg TRANSDERMA DAILY PRN PRN Reason: Nicotine craving Nicotine Polacrilex (Nicotine Polacrilex 2 Mg Gum) 4 mg BUCCAL Q2H PRN PRN Reason: Nicotine Cravings Last Admin: 02/21/25 17:26 Dose: 4 mg Polyethylene Glycol (Polyethylene Glycol 3350 17 Gm Powd.Pack) 17 gm PO DAILY PRN PRN Reason: constipation Prazosin HCl (Prazosin Hcl 1 Mg Capsule) 1 mg PO BEDTIME [facility]; Protocol Last Admin: 02/22/25 20:26 Dose: 1 mg Propranolol HCl (Propranolol Hcl 10 Mg Tablet) 10 mg PO TID [facility]ON[facility]; Protocol Last Admin: 02/23/25 08:34 Dose: 10 mg Quetiapine Fumarate (Quetiapine Fumarate 400 Mg Tablet) 400 mg PO BEDTIME [facility] Last Admin: 02/22/25 20:26 Dose: 400 mg Quetiapine Fumarate (Quetiapine Fumarate 25 Mg Tablet) 75 mg PO BID@0900,1500 [facility] Last Admin: 02/23/25 08:34 Dose: 75 mg Allergies Allergies Allergy/AdvReac Type Severity Reaction Status Date / Time amphetamine (From Adderall) Allergy Severe psychosis/ Verified 02/13/25 22:40 Manic dextroamphetamine (From Allergy Severe psychosis/ Verified 02/13/25 22:40 Adderall) Manic olanzapine (From Zyprexa) AdvReac Rash Verified 12/31/24 18:41 Assessment & Plan Assessment & Plan (1) Psychosis: Status: Acute Code(s): F29 - Unspecified psychosis not due to a substance or known physiological condition Plan Ms. Sheridan is a 34 year-old woman who presents with s/s of psychosis, disorganized, some degree of paranoia. She had similar episode back in 2020. 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 I do suspect that there may be underlying psychiatric disorder that is triggered by amphetamine use but not necessarily caused by it. Further evaluation to clarify dx is needed. We discussed inpt level of care. We also discussed restarting risperidone 1mg po BID. low dose clonazepam. continue clonidine. 1. IPLOC 2. start risperidone 1mg po BID. Clonazepam 0.5mg po BID. 01/05: Continue current regimen and plans. 01/06: slept only 2 hours, disorganized, decompensated behaviors. unable to interact cogently. refusing risperidone, will offer seroquel instead. possible bipolar diathesis, T/C mood stabilizer. delirium also a possibility, as the mental status change since admission appears to be striking. 01/07: took seroquel 200 last night, slept 5.5 hours. more organized, linear, able to engage today. continue current mgmt. 01/08: refused seroquel last NOC, slept only 30 minutes. agitated, bizarre, disorganized today. commitment paperwork filed. 01/09: refused meds yesterday but got IMs due to behaviors (outbursts, touching peers, yelling, banging doors, pushed her sitter, climbing on tables and chairs. threatening to stab self with pens). more linear and engageable today, once again the day after having takenm medication. agrees to continue to take seroquel 200 mg QHS. 01/10: took seroquel last NOC and slept 4 hours overnight, but bizarre today. less agitation and intrusiveness than yesterday, but still bizarre and fairly intrusive. pt appears willing to take risperidone, will DC seroquel and return to dosing of risperidone 2 mg BID. took first dose this afternoon. court next monday. 01/11 very paranoid, fearful, taking medications 01/12 continue tx. 01/13: appears a bit more organized today than when not taking medications, although slow and processing poorly. declines to sign CV. commitment hearing tomorrow. 01/14: hearing continued until 01/24 for SINDY. add klonopin 0.5 BID ODT, change risperidone formulation to liquid (pt has been inducing vomiting repeatedly with toothbrush). hold toothbrush unless actively brushing teeth. continues interactive to some extent with MD today, but has been grabbing badges, touching others, and tried to vault into the nursing station in the past 24H. 01/15: IM medication after threatening to punch nursing staff development coordinator with intrusive and aggressive behaviors toward peers. pt did not take klonopin as ordered yesterday. DC klonopin and start VPA 500 BID. per staff, running. tried to make herself vomit after taking PRN. labile. ate her feces in the shower and tried to feed it to her 1:1. crawling under tables. tried to jump into nurses station x2. took her shirt off and swinging it around. did not sleep at all. slept at 7:30am. 01/16: refusing VPA, taking risperidone. napped after IMs yesterday. has been bizarre and labile since. slept only 2 hours overnight. continue current mgmt. 01/17: agitated, bizarre, and aggressive behaviors yesterday (punching and kicking beard, stripping off in milieu, attempting to intimidate staff, grabbing stress balls out of staff's hands). did take VPA this morning on its being offered a second time. more calm today. taking risperidone. 01/18: intermittently refusing VPA, seems to be taking risperidone. asks MD if he is alive, then proposes elbow bump. accusing staff of stealing her things (phone), calling mother and crude unit operator in the middle of the night. slept less than 4 hours. 01/19: more lucid today. concerned about risperidone weight gain. agrees to DC risperidone and try prolixin instead, starting at 2.5 BID. 01/20: very disorganized, bizarre, psychotic today. likely due to equivalent dosing of prolixin being given much lower than prior risperidone. as pt seems to be tolerating prolixin without issues, increase prolixin dosing from 2.5 BID to 5 BID. otherwise continue current mgmt. 01/21: less bizarre and disorganized, but still quite ill. variably compliant with medications. c/o leg pain, lowering self to floor; started cogentin 0.5 BID due to concern for dystonia. c/o nightmares, h/o prazosin with good effect. add prazosin 1 mg QHS as of tonight. 01/22: Patients states that she is good. She is scared of [place] herpes after having sex. She refused to participate in an interview with this provider, and walked away stating i don't need a provider. She was observed by this provider, pacing the [place]. Continue current treatment regimen. 01/23: disorganized and dangerous behaviors. voluntarily took IMs. court tomorrow. 01/24: remains disorganized. ran into staff member yesterday, postured and threatened other staff afterward. slept about 6.[address] afternoon. 01/25/25: Staff 5 6 hours with broken sleep. Compliant with medication with lots of encouragement from yesterday, refused her vitamins in the morning. CT scan was negative, she fell early in the morning, witness her head hit the wall the trying to put her pants on. Slightly improved in mood with medication compliant. VPA level is 52,1 low side. However patient not consistently take it every day. We will recheck. He is on section 8. Pending Wei's order. Less irritable, less racing. 01/26/25: Mostly compliant with medication, to 250/750 mg of Depakote scheduled at bedtime. Labile, restless, poor boundaries, sexually inappropriate behavior, mood is aggravated . Disorganized. Slightly improving but not much. She is better in terms of compliant with medications. 01/27: mostly compliant with meds. improved from last week, more organized and less labile today. agreement reached on medications, reinstate risperidone as primary antipsychotic Tx, remove request for mood stabilizers, remove ativan. DC prolixin, begin taper of VPA, restart risperidone 2 BID, add thorazine 100 and valium 10 at HS to encourage sleep. awaiting med order. 01/28: last evening was pushing, attempting to kick and bite staff, shoulder-checked peer, exposing genitalia to 1:1 staff. took meds last night and this morning. court order received today, reviewed, medications adjusted to comply with order. reportedly more linear today, but pt declined to meet with MD after brief psychotic interaction with MD. 01/29: dysregulated, agitated behaviors continue last night. calmer days. refused VPA this morning. continue VPA taper, decrease from 500 BID to 250 TID as of today. increase HS seroquel from 300 mg to 400 mg as of tonight and HS valium from 10 mg to 15 mg as of tonight for sleep and sylwia. 01/30: same pattern of calm days through mid-afternoon, then decompensation. add third scheduled dosing of risperidone in the middle of the day, schedule valium in the morning and at 3 pm, otherwise continue current mgmt. increase HS seroquel if pt does not sleep more than several hours tonight. continue VPA taper tomorrow. 01/31: calm, morning. severe akathisia eves, unable to sleep or remain still. slept only 2.5 hours. due to 4 mg risperidone daily being inadequate to treat Sx and 6 mg causing severe akathisia, will DC risperidone in favor of a less potent antipsychotic, seroquel. schedule seroquel 100/100/500. taper VPA to 250 BID as of tomorrow. propranolol 20 TID started last night for akathisia, will continue for now. 02/01: no change - monitor akathisia decrease on new regimen 02/02: nicotine patch taper to 7 mg; seems to be doing better with switch to Seroquel and augmentation with Propranolol; primary team may f/u with further discussion of behavioral plan 02/03: much improved from last week. calm, linear, logical, topical. slept 6 hours each the last 3 nights. c/o sedation. decrease daytime valium from 5 BID to 2 BID. decrease daytime seroquel from 100 BID to 75 BID. taper VPA from 250 BID to 250 QHS. 02/04: remains much improved. no overt MSE abnormalities. c/o sedation, decrease seroquel from 75 BID to 50 BID and from 500 QHS to 400 QHS. DC VPA entirely. otherwise continue current mgmt. 02/05: backsliding today. irritable, erratic, more disorganized, labile. stating her intent to stop taking medications, demanding discharge. continue current mgmt. 02/06: much improved today. calm, logical, cogent and topical. pt would like to taper off of valium (addicting) and onto a proper mood stabilizer. legal services manager notified. DC daytime valium. restart prazosin due to c/o nightmares. decrease propranolol from 20 TID to 10 TID (should no longer be necessary as off of medications likely to cause akathisia). DC daytime seroquel tomorrow. 02/07: similar conversation to yesterday. DC daytime seroquel. awaiting word from legal re adding lithium. otherwise continue current mgmt. 02/08: keeping to self. irritable edge. pt reports feeling overwhelmed d/t room change. medication compliant. focused on returning home. denies SI/HI/VH/AH. per nursing, slept 6 hours last night. continue current tx plan. 02/09: irritable edge. medication compliant. focused on returning home. intrusive during a peer's treatment; declined to walk away when asked by staff multiple times; poor insight and judgment. pt became upset after meeting with her mother; pt stated, my mom says its my behavior why I'm still here. I think they are keeping me here because I locked myself in that room . Valium decreased to 10mg PO bedtime. 02/10: irritable. medication compliant. Perseverative on discharge. Patient reports sleeping well last night. Appears calmer today. She reports visit with her mother when well. Denies SI/HI/VH/AH. Attending groups. Continue current treatment plan. 02/11/25: Irritable, irrational regarding why she is still being here. Poor insight and poor judgment. Not thinks she has bipolar. She only believes she has has ADHD and autism, therefore she does not need to be here and that no reason to keep her here longer. As a future, she does not think she going to continue taking medication after discharge per nursing. Racing thoughts. At times she is calm, able to attend groups, and some what appropriate. Have good visit with brother and mom yesterday. Not able to discuss for medication change due to agitated/irritable mood. 02/12/25: Been sleeping well, no issue with appetite, attended groups, have visit with mom. Both mom and patient the nurse believe that patient is not manic or having any bipolar features. They only believe that she has ADHD and autism. Mom advocate for patient to be discharged. Mom claims that the treatment team has not ever reach out to her. Both of the agree to have a family meeting in the future. We will leave message to the team to set it up. Patient has some mood swing, but overall, continued to improve with help of the medication. She wants to be off from Valium, but do not want any other medication change. Both Seroquel and Valium is on [facility]iz order. No other safety concerns. 02/13/25: Slept well, compliant with medications, refused nicotine patch on. Observed visible and attending groups, irritable at times, hyper focused on discharge as her normal baseline of everyday. Do not want any medication change. Reports gaining 28 lb since she got here. Nutrition consult placed. We will add Adderall on allergy list which make her psychotic. Patient to nursing put it in her allergy list. Some labile mood, pressured speech. 02/14: continue current tx plan. 02/15/25: Slept well, manage meal intake, portion size, healthier snacks to control her weight gain. Met with the dietitian today. She also ask staff to pronounce the list of healthy/happy food. Family brought in some healthy snack for her. She was mad being wakened up to get vital signs in the morning by nursing staff. Denies suicidal thoughts, denies hallucinations. She asked questions regarding diagnosis. Educate her regarding psychosis that she came with. Explained with her regarding medication she has been taking here, she will be discharged with, and then work with the outpatient psychiatrist to continue with medication, making any change if necessary. She is more receptive with the plan, more rationale when she is not in the bad mood. She appreciates the time I spent talking to her today. She attended groups, visible. No ADLs issues. Can be irritable at times. Refused her propranolol in the morning. She took multivitamins later on of the day after she refused. Change nicotine patch to p.r.n.. 02/16/25: Reported that she was angry, other than that she feels mood more stable today. Nursing staff contacted this provider reported that patient in the past was allowed using the head phone at night to cancel out the noise. Patient asked if she was allowed to use it again. Patient focused on healthy food, eating yogurt only in the morning. Family brought in more seeds instead of eating unhealthy food from hospital. She also was irritable as someone touching her clothes in the washer. She has a couple visits today. She feels ready to leave and stable enough to go home to community. She is looking forward to talk to her attending this week regarding discharge. Denies other safety concerns. She has been irritable at times, but able to control her anger. She said this is her baseline, and being in here is make her more irritable. Had phones use overnight order was discontinued per policy. 02/17: calm, logical, cooperative. appearing overly controlled, unnatural in doing so. medications plan at our last meeting resurrected - start lithium, taper seroquel and valium. pt states she is open to mood stabilizers. informs pt he believes she lacks capacity presently and will notify real estate associate attorney to communicate with pt's real estate associate attorney. hospital real estate associate attorney notified. continue current mgmt for now. 02/18: corresponding with real estate associate attorney re stipulated agreement. pt intrusive with peers and resistant to redirection by staff. with MD pt is calm and cooperative, but attempting to engage in argument justifying her intrusive behavior. continue current mgmt. slept well. 02/19/25: showered in the morning, reasonable, , slept for 6 hours I was up for snack , compliant with meds except Propranonol at 1500 yesterday. She asked if she can use electric razor to trim the pubic hair which was not allowed per safety and unit policy. Continue working healthy diet and snack. 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 No major behavior issues. Sometimes ask for stuff she knows they are not allowed. Continue with the plan. 02/20: refused seroquel last night, did not receive IM back-up. appears with bizarre smile today, believes she doesn't need medications and is ready to discharge. 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 plan for lithium in lieu of valium and seroquel, ideally, reviewed. pt appears to have very poor retention, as this plan has been discussed numerous times. pt was encouraged to discuss with her real estate associate attorney and was given her real estate associate attorney's contact information ([facility] number). 02/21: talking about not taking meds once discharged. refusing meds then taking them last second prior to IM administration. labile, irritable. very disorganized today, severely impaired cognitive performance. restart valium 5 and seroquel 75 BID at 0900, 1500. otherwise continue current mgmt. awaiting word from steel spar operator re stipulated agreement for mood stabilizers. 02/22: Continue current regimen and plans. Orajel ordered. 02/23: Continue current plans and regimen Patient educated on: medication risk/benefits Reason for continued inpatient stay Substantial Risk for: med/psych decompensation Time Spent With Patient Time: Total time managing care of this patient today ____ minutes.
[2025-02-23 14:57] VITALS: BP 124/61; PULSE 90
[2025-02-23 20:00] VITALS: BP 114/60; PULSE 94; RESP 16; TEMP 36.4; O2SAT 99
[2025-02-23 20:38] VITALS: BP 114/59; PULSE 94
[2025-02-24 08:58] VITALS: BP 132/60; PULSE 111
[2025-02-24] MEDS: Calcium + Vitamin D 250 MG TABLET PO ×2 (08:58→18:09)
[2025-02-24 09:00] VITALS: BP 132/60; PULSE 111; RESP 16; TEMP 36.8; O2SAT 98
--- NOTE | 2025-02-24 12:03 | P.PNPSI_ITS ---
Subjective Subjective Date of Service: 02/24/25 Reason For Visit: Crisis Interim History: calm, cooperative, pleasant. overly inquisitive, asking MD personal questions. undercurrent of sexual innuendo, as has been the case in recent days. agreeable to take lithium. per staff, intrusive, refusing assessment questions. irritable. c/o dental pain, getting topical anesthetic. lots of visitors. slept about 6 hours last night, generally sleeping in recent days. Mental Status Exam Mental Status Exam Narrative: Appearance: adequately dressed and groomed Behavior: no PMA/PMR Speech: incr amount, nml loudness. nml latency. TP: organized TC: personal questions, Tx Mood: euthymic Affect: calm, blunted AH/VH: none expressed Insight/judgment: impaired Memory/cog: alert, impaired. Diagnostics Vital Signs (24Hr): Vital Signs - 24 hr 02/23/25 14:57 02/23/25 20:00 02/23/25 20:38 Temperature 97.5 F Pulse Rate 90 94 Respiratory Rate 16 Blood Pressure 124/61 114/60 114/59 L Pulse Oximetry 99 Oxygen Delivery Method Room Air 02/23/25 20:38 02/24/25 08:58 02/24/25 09:00 Temperature 98.2 F Pulse Rate 94 111 H 111 H Respiratory Rate 16 Blood Pressure 114/59 L 132/60 132/60 Pulse Oximetry 98 Oxygen Delivery Method Room Air BMI result Body Mass Index 22.9 Labs 01/09/25 16:36 01/09/25 16:36 Imaging Radiology Impressions: ITS Impressions Hand X-Ray 01/16/25 11:30 IMPRESSION: Unremarkable right hand Electronically signed by: Casa Rush MD 01/16/2025 11:46 AM EDT RP Hand X-Ray 01/29/25 07:30 IMPRESSION: Unremarkable examination of the right hand. Electronically signed by: Obdulio Tolbert MD 01/30/2025 07:56 AM EDT RP Medications Medications Current Medications Acetaminophen (Acetaminophen 325 Mg Tablet) 650 mg PO Q6H PRN PRN Reason: Headache/Pain, Scale 1-10 Last Admin: 02/22/25 11:47 Dose: 650 mg Al Hydroxide/Mg Hydroxide (Magnesium Hydrox/Alum Hydrox 30 Ml Oral.Susp) 30 ml PO Q6H PRN PRN Reason: Heartburn/Nausea Last Admin: 01/30/25 14:06 Dose: 30 ml Artificial Tears (Artificial Tears 15 Ml Drops) 2 drop EYE-BOTH Q4H PRN PRN Reason: Dry Eyes Last Admin: 02/06/25 09:24 Dose: 2 drop Benzocaine (Benzocaine 20 % Oral Gel 14 Gm Tube) 1 appl MUCOUS MEM QID PRN; Protocol PRN Reason: Pain, Mild 1-3,fever,headache Last Admin: 02/23/25 06:08 Dose: 1 appl Calcium Carbonate/Cholecalciferol (Calcium + Vitamin D 250 Mg Tablet) 250 mg PO BIDWM VERONICA Last Admin: 02/24/25 08:58 Dose: 250 mg Diazepam (Diazepam 5 Mg Tablet) 5 mg PO Q4H PRN PRN Reason: agitation Last Admin: 02/18/25 08:48 Dose: 5 mg Diazepam (Diazepam 10 Mg/2 Ml Cartridge) 5 mg IM TID PRN PRN Reason: refusal of seroquel or valium Last Admin: 02/04/25 20:13 Dose: 5 mg Diazepam (Diazepam 5 Mg Tablet) 10 mg PO BEDTIME VERONICA Last Admin: 02/23/25 20:38 Dose: 10 mg Diazepam (Diazepam 5 Mg Tablet) 5 mg PO BID@0900,1500 [facility] Last Admin: 02/24/25 08:58 Dose: 5 mg Docusate Sodium (Docusate Sodium 100 Mg Capsule) 100 mg PO BID PRN PRN Reason: Constipation Last Admin: 01/30/25 20:10 Dose: 100 mg Haloperidol Lactate (Haloperidol Lactate 5 Mg/Ml Vial) 5 mg IM TID PRN PRN Reason: refusal of scheduled seroquel Last Admin: 02/04/25 20:14 Dose: 5 mg Hydrocortisone (Hydrocortisone 2.5 % Rectal Cr 30 Gm Tube) 1 appl MO DAILY PRN PRN Reason: hemrroids Last Admin: 01/26/25 14:57 Dose: 1 appl Magnesium Hydroxide (Milk Of Magnesia 30 Ml Oral.Susp) 30 ml PO DAILY PRN PRN Reason: Constipation Last Admin: 01/26/25 14:59 Dose: 30 ml Multivitamins/Vitamin C (Multivitamin Tablet) 1 tab PO DAILY VERONICA Last Admin: 02/24/25 08:58 Dose: 1 tab Nicotine (Nicotine 7 Mg Patch.Td24) 7 mg TRANSDERMA DAILY PRN PRN Reason: Nicotine craving Nicotine Polacrilex (Nicotine Polacrilex 2 Mg Gum) 4 mg BUCCAL Q2H PRN PRN Reason: Nicotine Cravings Last Admin: 02/21/25 17:26 Dose: 4 mg Polyethylene Glycol (Polyethylene Glycol 3350 17 Gm Powd.Pack) 17 gm PO DAILY PRN PRN Reason: constipation Prazosin HCl (Prazosin Hcl 1 Mg Capsule) 1 mg PO BEDTIME VERONICA; Protocol Last Admin: 02/23/25 20:38 Dose: 1 mg Propranolol HCl (Propranolol Hcl 10 Mg Tablet) 10 mg PO TID VERONICA; Protocol Last Admin: 02/24/25 08:58 Dose: 10 mg Quetiapine Fumarate (Quetiapine Fumarate 400 Mg Tablet) 400 mg PO BEDTIME VERONICA Last Admin: 02/23/25 20:38 Dose: 400 mg Quetiapine Fumarate (Quetiapine Fumarate 25 Mg Tablet) 75 mg PO BID@0900,1500 VERONICA Last Admin: 02/24/25 08:58 Dose: 75 mg Allergies Allergies Allergy/AdvReac Type Severity Reaction Status Date / Time amphetamine (From Adderall) Allergy Severe psychosis/ Verified 02/13/25 22:40 Manic dextroamphetamine (From Allergy Severe psychosis/ Verified 02/13/25 22:40 Adderall) Manic olanzapine (From Zyprexa) AdvReac Rash Verified 12/31/24 18:41 Assessment & Plan Assessment & Plan (1) Psychosis: Status: Acute Code(s): F29 - Unspecified psychosis not due to a substance or known physiological condition Plan Ms. Sheridan is a 34 year-old woman who presents with s/s of psychosis, disorganized, some degree of paranoia. She had similar episode back in 2020. 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 I do suspect that there may be underlying psychiatric disorder that is triggered by amphetamine use but not necessarily caused by it. Further evaluation to clarify dx is needed. We discussed inpt level of care. We also discussed restarting risperidone 1mg po BID. low dose clonazepam. continue clonidine. 1. IPLOC 2. start risperidone 1mg po BID. Clonazepam 0.5mg po BID. 01/05: Continue current regimen and plans. 01/06: slept only 2 hours, disorganized, decompensated behaviors. unable to interact cogently. refusing risperidone, will offer seroquel instead. possible bipolar diathesis, T/C mood stabilizer. delirium also a possibility, as the mental status change since admission appears to be striking. 01/07: took seroquel 200 last night, slept 5.5 hours. more organized, linear, able to engage today. continue current mgmt. 01/08: refused seroquel last NOC, slept only 30 minutes. agitated, bizarre, disorganized today. commitment paperwork filed. 01/09: refused meds yesterday but got IMs due to behaviors (outbursts, touching peers, yelling, banging doors, pushed her sitter, climbing on tables and chairs. threatening to stab self with pens). more linear and engageable today, once again the day after having takenm medication. agrees to continue to take seroquel 200 mg QHS. 01/10: took seroquel last NOC and slept 4 hours overnight, but bizarre today. less agitation and intrusiveness than yesterday, but still bizarre and fairly intrusive. pt appears willing to take risperidone, will DC seroquel and return to dosing of risperidone 2 mg BID. took first dose this afternoon. court next monday. 01/11 very paranoid, fearful, taking medications 01/12 continue tx. 01/13: appears a bit more organized today than when not taking medications, although slow and processing poorly. declines to sign CV. commitment hearing tomorrow. 01/14: hearing continued until 01/24 for SINDY. add klonopin 0.5 BID ODT, change risperidone formulation to liquid (pt has been inducing vomiting repeatedly with toothbrush). hold toothbrush unless actively brushing teeth. continues interactive to some extent with MD today, but has been grabbing badges, touching others, and tried to vault into the nursing station in the past 24H. 01/15: IM medication after threatening to punch clinical staff anesthesiologist with intrusive and aggressive behaviors toward peers. pt did not take klonopin as ordered yesterday. DC klonopin and start VPA 500 BID. per staff, running. tried to make herself vomit after taking PRN. labile. ate her feces in the shower and tried to feed it to her 1:1. crawling under tables. tried to jump into nurses station x2. took her shirt off and swinging it around. did not sleep at all. slept at 7:30am. 01/16: refusing VPA, taking risperidone. napped after IMs yesterday. has been bizarre and labile since. slept only 2 hours overnight. continue current mgmt. 01/17: agitated, bizarre, and aggressive behaviors yesterday (punching and kicking beard, stripping off in milieu, attempting to intimidate staff, grabbing stress balls out of staff's hands). did take VPA this morning on its being offered a second time. more calm today. taking risperidone. 01/18: intermittently refusing VPA, seems to be taking risperidone. asks MD if he is alive, then proposes elbow bump. accusing staff of stealing her things (phone), calling mother and corporate director in the middle of the night. slept less than 4 hours. 01/19: more lucid today. concerned about risperidone weight gain. agrees to DC risperidone and try prolixin instead, starting at 2.5 BID. 01/20: very disorganized, bizarre, psychotic today. likely due to equivalent dosing of prolixin being given much lower than prior risperidone. as pt seems to be tolerating prolixin without issues, increase prolixin dosing from 2.5 BID to 5 BID. otherwise continue current mgmt. 01/21: less bizarre and disorganized, but still quite ill. variably compliant with medications. c/o leg pain, lowering self to floor; started cogentin 0.5 BID due to concern for dystonia. c/o nightmares, h/o prazosin with good effect. add prazosin 1 mg QHS as of tonight. 01/22: Patients states that she is good. She is scared of [place] herpes after having sex. She refused to participate in an interview with this provider, and walked away stating i don't need a provider. She was observed by this provider, pacing the [place]. Continue current treatment regimen. 01/23: disorganized and dangerous behaviors. voluntarily took IMs. court tomorrow. 01/24: remains disorganized. ran into staff member yesterday, postured and threatened other staff afterward. slept about 6.[address] afternoon. 01/25/25: Staff 5 6 hours with broken sleep. Compliant with medication with lots of encouragement from yesterday, refused her vitamins in the morning. CT scan was negative, she fell early in the morning, witness her head hit the wall the trying to put her pants on. Slightly improved in mood with medication compliant. VPA level is 52,1 low side. However patient not consistently take it every day. We will recheck. He is on section 8. Pending Wei's order. Less irritable, less racing. 01/26/25: Mostly compliant with medication, to 250/750 mg of Depakote scheduled at bedtime. Labile, restless, poor boundaries, sexually inappropriate behavior, mood is aggravated . Disorganized. Slightly improving but not much. She is better in terms of compliant with medications. 01/27: mostly compliant with meds. improved from last week, more organized and less labile today. agreement reached on medications, reinstate risperidone as primary antipsychotic Tx, remove request for mood stabilizers, remove ativan. DC prolixin, begin taper of VPA, restart risperidone 2 BID, add thorazine 100 and valium 10 at HS to encourage sleep. awaiting med order. 01/28: last evening was pushing, attempting to kick and bite staff, shoulder- checked peer, exposing genitalia to 1:1 staff. took meds last night and this morning. court order received today, reviewed, medications adjusted to comply with order. reportedly more linear today, but pt declined to meet with MD after brief psychotic interaction with MD. 01/29: dysregulated, agitated behaviors continue last night. calmer days. refused VPA this morning. continue VPA taper, decrease from 500 BID to 250 TID as of today. increase HS seroquel from 300 mg to 400 mg as of tonight and HS valium from 10 mg to 15 mg as of tonight for sleep and sylwia. 01/30: same pattern of calm days through mid-afternoon, then decompensation. add third scheduled dosing of risperidone in the middle of the day, schedule valium in the morning and at 3 pm, otherwise continue current mgmt. increase HS seroquel if pt does not sleep more than several hours tonight. continue VPA taper tomorrow. 01/31: calm, morning. severe akathisia eves, unable to sleep or remain still. slept only 2.5 hours. due to 4 mg risperidone daily being inadequate to treat Sx and 6 mg causing severe akathisia, will DC risperidone in favor of a less potent antipsychotic, seroquel. schedule seroquel 100/100/500. taper VPA to 250 BID as of tomorrow. propranolol 20 TID started last night for akathisia, will continue for now. 02/01: no change - monitor akathisia decrease on new regimen 02/02: nicotine patch taper to 7 mg; seems to be doing better with switch to Seroquel and augmentation with Propranolol; primary team may f/u with further discussion of behavioral plan 02/03: much improved from last week. calm, linear, logical, topical. slept 6 hours each the last 3 nights. c/o sedation. decrease daytime valium from 5 BID to 2 BID. decrease daytime seroquel from 100 BID to 75 BID. taper VPA from 250 BID to 250 QHS. 02/04: remains much improved. no overt MSE abnormalities. c/o sedation, decrease seroquel from 75 BID to 50 BID and from 500 QHS to 400 QHS. DC VPA entirely. otherwise continue current mgmt. 02/05: backsliding today. irritable, erratic, more disorganized, labile. stating her intent to stop taking medications, demanding discharge. continue current mgmt. 02/06: much improved today. calm, logical, cogent and topical. pt would like to taper off of valium (addicting) and onto a proper mood stabilizer. paralegal secretary notified. DC daytime valium. restart prazosin due to c/o nightmares. decrease propranolol from 20 TID to 10 TID (should no longer be necessary as off of medications likely to cause akathisia). DC daytime seroquel tomorrow. 02/07: similar conversation to yesterday. DC daytime seroquel. awaiting word from legal re adding lithium. otherwise continue current mgmt. 02/08: keeping to self. irritable edge. pt reports feeling overwhelmed d/t room change. medication compliant. focused on returning home. denies SI/HI/VH/AH. per nursing, slept 6 hours last night. continue current tx plan. 07/27: irritable edge. medication compliant. focused on returning home. intrusive during a peer's treatment; declined to walk away when asked by staff multiple times; poor insight and judgment. pt became upset after meeting with her mother; pt stated, my mom says its my behavior why I'm still here. I think they are keeping me here because I locked myself in that room . Valium decreased to 10mg PO bedtime. 02/10: irritable. medication compliant. Perseverative on discharge. Patient reports sleeping well last night. Appears calmer today. She reports visit with her mother when well. Denies SI/HI/VH/AH. Attending groups. Continue current treatment plan. 02/11/25: Irritable, irrational regarding why she is still being here. Poor insight and poor judgment. Not thinks she has bipolar. She only believes she has has ADHD and autism, therefore she does not need to be here and that no reason to keep her here longer. As a future, she does not think she going to continue taking medication after discharge per nursing. Racing thoughts. At times she is calm, able to attend groups, and some what appropriate. Have good visit with brother and mom yesterday. Not able to discuss for medication change due to agitated/irritable mood. 02/12/25: Been sleeping well, no issue with appetite, attended groups, have visit with mom. Both mom and patient the nurse believe that patient is not manic or having any bipolar features. They only believe that she has ADHD and autism. Mom advocate for patient to be discharged. Mom claims that the treatment team has not ever reach out to her. Both of the agree to have a family meeting in the future. We will leave message to the team to set it up. Patient has some mood swing, but overall, continued to improve with help of the medication. She wants to be off from Valium, but do not want any other medication change. Both Seroquel and Valium is on [facility] order. No other safety concerns. 02/13/25: Slept well, compliant with medications, refused nicotine patch on. Observed visible and attending groups, irritable at times, hyper focused on discharge as her normal baseline of everyday. Do not want any medication change. Reports gaining 28 lb since she got here. Nutrition consult placed. We will add Adderall on allergy list which make her psychotic. Patient to nursing put it in her allergy list. Some labile mood, pressured speech. 02/14: continue current tx plan. 02/15/25: Slept well, manage meal intake, portion size, healthier snacks to control her weight gain. Met with the dietitian today. She also ask staff to pronounce the list of healthy/happy food. Family brought in some healthy snack for her. She was mad being wakened up to get vital signs in the morning by nursing staff. Denies suicidal thoughts, denies hallucinations. She asked questions regarding diagnosis. Educate her regarding psychosis that she came with. Explained with her regarding medication she has been taking here, she will be discharged with, and then work with the outpatient psychiatrist to continue with medication, making any change if necessary. She is more receptive with the plan, more rationale when she is not in the bad mood. She appreciates the time I spent talking to her today. She attended groups, visible. No ADLs issues. Can be irritable at times. Refused her propranolol in the morning. She took multivitamins later on of the day after she refused. Change nicotine patch to p.r.n.. 02/16/25: Reported that she was angry, other than that she feels mood more stable today. Nursing staff contacted this provider reported that patient in the past was allowed using the head phone at night to cancel out the noise. Patient asked if she was allowed to use it again. Patient focused on healthy food, eating yogurt only in the morning. Family brought in more seeds instead of eating unhealthy food from hospital. She also was irritable as someone touching her clothes in the washer. She has a couple visits today. She feels ready to leave and stable enough to go home to community. She is looking forward to talk to her attending this week regarding discharge. Denies other safety concerns. She has been irritable at times, but able to control her anger. She said this is her baseline, and being in here is make her more irritable. Had phones use overnight order was discontinued per policy. 02/17: calm, logical, cooperative. appearing overly controlled, unnatural in doing so. medications plan at our last meeting resurrected - start lithium, taper seroquel and valium. pt states she is open to mood stabilizers. MD informs pt he believes she lacks capacity presently and will notify document review attorney to communicate with pt's document review attorney. hospital document review attorney notified. continue current mgmt for now. 02/18: corresponding with document review attorney re stipulated agreement. pt intrusive with peers and resistant to redirection by staff. with MD pt is calm and cooperative, but attempting to engage in argument justifying her intrusive behavior. continue current mgmt. slept well. 02/19/25: showered in the morning, reasonable, , slept for 6 hours I was up for snack , compliant with meds except Propranonol at 1500 yesterday. She asked if she can use electric razor to trim the pubic hair which was not allowed per safety and unit policy. Continue working healthy diet and snack. 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 No major behavior issues. Sometimes ask for stuff she knows they are not allowed. Continue with the plan. 02/20: refused seroquel last night, did not receive IM back-up. appears with bizarre smile today, believes she doesn't need medications and is ready to discharge. 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 plan for lithium in lieu of valium and seroquel, ideally, reviewed. pt appears to have very poor retention, as this plan has been discussed numerous times. pt was encouraged to discuss with her document review attorney and was given her document review attorney's contact information ([facility] number). 02/21: talking about not taking meds once discharged. refusing meds then taking them last second prior to IM administration. labile, irritable. very disorganized today, severely impaired cognitive performance. restart valium 5 and seroquel 75 BID at 0900, 1500. otherwise continue current mgmt. awaiting word from general engineering teacher re stipulated agreement for mood stabilizers. 02/22: Continue current regimen and plans. Orajel ordered. 02/23: Continue current plans and regimen 02/24: more organized and less oppositional, labile, intrusive, impulsive than monday. willing to take lithium. per document review attorney, we may have a stipulated agreement. continue current mgmt for now, hoping to start lithium GIRISH. Reason for continued inpatient stay Substantial Risk for: harm to self, inability to function and rapid decompensation Time Spent With Patient Time: Total time managing care of this patient today __35__ minutes.
[2025-02-24 14:45] VITALS: BP 120/67; PULSE 109
[2025-02-24 20:00] VITALS: BP 117/72; PULSE 103; RESP 18; TEMP 37.1; O2SAT 97
[2025-02-24 20:29] VITALS: BP 117/72
[2025-02-24 20:30] VITALS: BP 117/72; PULSE 103
[2025-02-25] MEDS: Benzocaine 20 % Oral Gel 14 GM TUBE 1 APPL MUCOUS MEM (03:58)
[2025-02-25 07:36] VITALS: BP 105/57; PULSE 100; RESP 20; TEMP 37; O2SAT 99
[2025-02-25 08:58] VITALS: BP 125/83; PULSE 100
[2025-02-25] MEDS: Calcium + Vitamin D 250 MG TABLET PO ×2 (08:58→17:10)
[2025-02-25 15:10] VITALS: BP 120/57; PULSE 102
--- NOTE | 2025-02-25 16:18 | HO.PSYCHPN ---
Subjective Subjective Date of Service: 02/25/25 Reason For Visit: Crisis Subjective Notes: [facility]iz Order and Section 8 Healthcare Proxy: No Guardianship: No Medical Problems Affecting Mental Status: No Interim History: Medical record and nursing notes reviewed; case discussed during rounds with team/nursing staff, and met with patient for supportive therapy/psychoeducation, as well as medication management. Patient slept for 7 hours, was medication compliant, denies side effect. However later on stated that Seroquel make her mad and that Valium was added on to prevent side effects. She more rationale, in the morning showing this provider's pictures on the wall regarding her family, grandpa, boyfriend, moment friends included her cars as well. She talks about how she was using substance before, but has been clean for a 1311 days. Patient is more labile, less rationale when this provider come back talking to her regarding the new edit Muniz order included lithium. She states its fake paper. You keep it. I have not talked to my military lawyer. I did not even go to the court . Patient was informed some labs work ordered for tomorrow, and lithium were start tonight. Medication Compliance: Yes Side effects from medications: No Attending Groups: Yes Review of Systems Acute medical concerns: No Medical Review of Systems: unchanged Review of Systems Review of Systems Constitutional: Denies fatigue and Denies fever(s) Cardiovascular: Denies chest pain and Denies dyspnea Respiratory: Denies dyspnea Gastrointestinal: Denies abdominal pain Psychiatric: denies suicidal ideation Endocrine: Denies fatigue Yes all other systems are reviewed and are negative Mental Status Exam Mental Status Exam Narrative: Appearance: adequately dressed and groomed Behavior: no PMA/PMR Speech: incr amount, nml loudness. nml latency. TP: organized TC: personal questions, Tx Mood: euthymic Affect: calm, blunted AH/VH: none expressed Insight/judgment: impaired Memory/cog: alert, impaired. Diagnostics Vital Signs (24Hr): Vital Signs - 24 hr 02/24/25 20:00 02/24/25 20:29 02/24/25 20:30 Temperature 98.7 F Pulse Rate 103 H 103 H Respiratory Rate 18 Blood Pressure 117/72 117/72 117/72 Pulse Oximetry 97 Oxygen Delivery Method Room Air 02/25/25 07:36 02/25/25 08:58 02/25/25 15:10 Temperature 98.6 F Pulse Rate 100 100 102 H Respiratory Rate 20 Blood Pressure 105/57 L 125/83 120/57 L Pulse Oximetry 99 Oxygen Delivery Method Room Air BMI result Body Mass Index 22.9 Labs 01/09/25 16:36 01/09/25 16:36 Imaging Radiology Impressions: ITS Impressions Hand X-Ray 01/16/25 11:30 IMPRESSION: Unremarkable right hand Electronically signed by: Casa Rush MD 01/16/2025 11:46 AM EDT RP Hand X-Ray 01/29/25 07:30 IMPRESSION: Unremarkable examination of the right hand. Electronically signed by: Obdulio Tolbert MD 01/30/2025 07:56 AM EDT RP Medications Medications Current Medications Acetaminophen (Acetaminophen 325 Mg Tablet) 650 mg PO Q6H PRN PRN Reason: Headache/Pain, Scale 1-10 Last Admin: 02/25/25 04:00 Dose: 650 mg Al Hydroxide/Mg Hydroxide (Magnesium Hydrox/Alum Hydrox 30 Ml Oral.Susp) 30 ml PO Q6H PRN PRN Reason: Heartburn/Nausea Last Admin: 01/30/25 14:06 Dose: 30 ml Artificial Tears (Artificial Tears 15 Ml Drops) 2 drop EYE-BOTH Q4H PRN PRN Reason: Dry Eyes Last Admin: 02/06/25 09:24 Dose: 2 drop Benzocaine (Benzocaine 20 % Oral Gel 14 Gm Tube) 1 appl MUCOUS MEM QID PRN; Protocol PRN Reason: Pain, Mild 1-3,fever,headache Last Admin: 02/25/25 03:58 Dose: 1 appl Calcium Carbonate/Cholecalciferol (Calcium + Vitamin D 250 Mg Tablet) 250 mg PO BIDWM VERONICA Last Admin: 02/25/25 08:58 Dose: 250 mg Diazepam (Diazepam 5 Mg Tablet) 5 mg PO Q4H PRN PRN Reason: agitation Last Admin: 02/18/25 08:48 Dose: 5 mg Diazepam (Diazepam 10 Mg/2 Ml Cartridge) 5 mg IM TID PRN PRN Reason: refusal of seroquel or valium Last Admin: 02/04/25 20:13 Dose: 5 mg Diazepam (Diazepam 5 Mg Tablet) 10 mg PO BEDTIME VERONICA Last Admin: 02/24/25 20:29 Dose: 10 mg Diazepam (Diazepam 5 Mg Tablet) 5 mg PO BID@0900,1500 VERONICA Last Admin: 02/25/25 15:10 Dose: 5 mg Docusate Sodium (Docusate Sodium 100 Mg Capsule) 100 mg PO BID PRN PRN Reason: Constipation Last Admin: 01/30/25 20:10 Dose: 100 mg Haloperidol Lactate (Haloperidol Lactate 5 Mg/Ml Vial) 5 mg IM TID PRN PRN Reason: refusal of scheduled seroquel Last Admin: 02/04/25 20:14 Dose: 5 mg Hydrocortisone (Hydrocortisone 2.5 % Rectal Cr 30 Gm Tube) 1 appl MA DAILY PRN PRN Reason: hemrroids Last Admin: 01/26/25 14:57 Dose: 1 appl [place] Carbonate ([place] Carbonate Er 450 Mg Tablet.Er) 450 mg PO BEDTIME VERONICA Magnesium Hydroxide (Milk Of Magnesia 30 Ml Oral.Susp) 30 ml PO DAILY PRN PRN Reason: Constipation Last Admin: 01/26/25 14:59 Dose: 30 ml Multivitamins/Vitamin C (Multivitamin Tablet) 1 tab PO DAILY VERONICA Last Admin: 02/25/25 08:59 Dose: 1 tab Nicotine (Nicotine 7 Mg Patch.Td24) 7 mg TRANSDERMA DAILY PRN PRN Reason: Nicotine craving Nicotine Polacrilex (Nicotine Polacrilex 2 Mg Gum) 4 mg BUCCAL Q2H PRN PRN Reason: Nicotine Cravings Last Admin: 02/21/25 17:26 Dose: 4 mg Polyethylene Glycol (Polyethylene Glycol 3350 17 Gm Powd.Pack) 17 gm PO DAILY PRN PRN Reason: constipation Prazosin HCl (Prazosin Hcl 1 Mg Capsule) 1 mg PO BEDTIME VERONICA; Protocol Last Admin: 02/24/25 20:29 Dose: 1 mg Propranolol HCl (Propranolol Hcl 10 Mg Tablet) 10 mg PO TID VERONICA; Protocol Last Admin: 02/25/25 15:10 Dose: 10 mg Quetiapine Fumarate (Quetiapine Fumarate 400 Mg Tablet) 400 mg PO BEDTIME VERONICA Last Admin: 02/24/25 20:29 Dose: 400 mg Quetiapine Fumarate (Quetiapine Fumarate 25 Mg Tablet) 75 mg PO BID@0900,1500 [facility] Last Admin: 02/25/25 15:10 Dose: 75 mg Allergies Allergies Allergy/AdvReac Type Severity Reaction Status Date / Time amphetamine (From Adderall) Allergy Severe psychosis/ Verified 02/13/25 22:40 Manic dextroamphetamine (From Allergy Severe psychosis/ Verified 02/13/25 22:40 Adderall) Manic olanzapine (From Zyprexa) AdvReac Rash Verified 12/31/24 18:41 Assessment & Plan Assessment & Plan (1) Psychosis: Status: Acute Code(s): F29 - Unspecified psychosis not due to a substance or known physiological condition Plan Ms. Sheridan is a 34 year-old woman who presents with s/s of psychosis, disorganized, some degree of paranoia. She had similar episode back in 2020. 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 I do suspect that there may be underlying psychiatric disorder that is triggered by amphetamine use but not necessarily caused by it. Further evaluation to clarify dx is needed. We discussed inpt level of care. We also discussed restarting risperidone 1mg po BID. low dose clonazepam. continue clonidine. 1. IPLOC 2. start risperidone 1mg po BID. Clonazepam 0.5mg po BID. 01/05: Continue current regimen and plans. 01/06: slept only 2 hours, disorganized, decompensated behaviors. unable to interact cogently. refusing risperidone, will offer seroquel instead. possible bipolar diathesis, T/C mood stabilizer. delirium also a possibility, as the mental status change since admission appears to be striking. 01/07: took seroquel 200 last night, slept 5.5 hours. more organized, linear, able to engage today. continue current mgmt. 01/08: refused seroquel last NOC, slept only 30 minutes. agitated, bizarre, disorganized today. commitment paperwork filed. 01/09: refused meds yesterday but got IMs due to behaviors (outbursts, touching peers, yelling, banging doors, pushed her sitter, climbing on tables and chairs. threatening to stab self with pens). more linear and engageable today, once again the day after having takenm medication. agrees to continue to take seroquel 200 mg QHS. 01/10: took seroquel last NOC and slept 4 hours overnight, but bizarre today. less agitation and intrusiveness than yesterday, but still bizarre and fairly intrusive. pt appears willing to take risperidone, will DC seroquel and return to dosing of risperidone 2 mg BID. took first dose this afternoon. court next monday. 01/11 very paranoid, fearful, taking medications 01/12 continue tx. 01/13: appears a bit more organized today than when not taking medications, although slow and processing poorly. declines to sign CV. commitment hearing tomorrow. 01/14: hearing continued until 01/24 for SINDY. add klonopin 0.5 BID ODT, change risperidone formulation to liquid (pt has been inducing vomiting repeatedly with toothbrush). hold toothbrush unless actively brushing teeth. continues interactive to some extent with MD today, but has been grabbing badges, touching others, and tried to vault into the nursing station in the past 24H. 01/15: IM medication after threatening to punch staff command and control officer with intrusive and aggressive behaviors toward peers. pt did not take klonopin as ordered yesterday. DC klonopin and start VPA 500 BID. per staff, running. tried to make herself vomit after taking PRN. labile. ate her feces in the shower and tried to feed it to her 1:1. crawling under tables. tried to jump into nurses station x2. took her shirt off and swinging it around. did not sleep at all. slept at 7:30am. 01/16: refusing VPA, taking risperidone. napped after IMs yesterday. has been bizarre and labile since. slept only 2 hours overnight. continue current mgmt. 01/17: agitated, bizarre, and aggressive behaviors yesterday (punching and kicking beard, stripping off in milieu, attempting to intimidate staff, grabbing stress balls out of staff's hands). did take VPA this morning on its being offered a second time. more calm today. taking risperidone. 01/18: intermittently refusing VPA, seems to be taking risperidone. asks MD if he is alive, then proposes elbow bump. accusing staff of stealing her things (phone), calling mother and military lawyer in the middle of the night. slept less than 4 hours. 01/19: more lucid today. concerned about risperidone weight gain. agrees to DC risperidone and try prolixin instead, starting at 2.5 BID. 01/20: very disorganized, bizarre, psychotic today. likely due to equivalent dosing of prolixin being given much lower than prior risperidone. as pt seems to be tolerating prolixin without issues, increase prolixin dosing from 2.5 BID to 5 BID. otherwise continue current mgmt. 01/21: less bizarre and disorganized, but still quite ill. variably compliant with medications. c/o leg pain, lowering self to floor; started cogentin 0.5 BID due to concern for dystonia. c/o nightmares, h/o prazosin with good effect. add prazosin 1 mg QHS as of tonight. 01/22: Patients states that she is good. She is scared of [place] herpes after having sex. She refused to participate in an interview with this provider, and walked away stating i don't need a provider. She was observed by this provider, pacing the [place]. Continue current treatment regimen. 01/23: disorganized and dangerous behaviors. voluntarily took IMs. court tomorrow. 01/24: remains disorganized. ran into staff member yesterday, postured and threatened other staff afterward. slept about 6.[address] afternoon. 01/25/25: Staff 5 6 hours with broken sleep. Compliant with medication with lots of encouragement from yesterday, refused her vitamins in the morning. CT scan was negative, she fell early in the morning, witness her head hit the wall the trying to put her pants on. Slightly improved in mood with medication compliant. VPA level is 52,1 low side. However patient not consistently take it every day. We will recheck. He is on section 8. Pending Wei's order. Less irritable, less racing. 01/26/25: Mostly compliant with medication, to 250/750 mg of Depakote scheduled at bedtime. Labile, restless, poor boundaries, sexually inappropriate behavior, mood is aggravated . Disorganized. Slightly improving but not much. She is better in terms of compliant with medications. 01/27: mostly compliant with meds. improved from last week, more organized and less labile today. agreement reached on medications, reinstate risperidone as primary antipsychotic Tx, remove request for mood stabilizers, remove ativan. DC prolixin, begin taper of VPA, restart risperidone 2 BID, add thorazine 100 and valium 10 at HS to encourage sleep. awaiting med order. 01/28: last evening was pushing, attempting to kick and bite staff, shoulder-checked peer, exposing genitalia to 1:1 staff. took meds last night and this morning. court order received today, reviewed, medications adjusted to comply with order. reportedly more linear today, but pt declined to meet with MD after brief psychotic interaction with MD. 01/29: dysregulated, agitated behaviors continue last night. calmer days. refused VPA this morning. continue VPA taper, decrease from 500 BID to 250 TID as of today. increase HS seroquel from 300 mg to 400 mg as of tonight and HS valium from 10 mg to 15 mg as of tonight for sleep and sylwia. 01/30: same pattern of calm days through mid-afternoon, then decompensation. add third scheduled dosing of risperidone in the middle of the day, schedule valium in the morning and at 3 pm, otherwise continue current mgmt. increase HS seroquel if pt does not sleep more than several hours tonight. continue VPA taper tomorrow. 01/31: calm, morning. severe akathisia eves, unable to sleep or remain still. slept only 2.5 hours. due to 4 mg risperidone daily being inadequate to treat Sx and 6 mg causing severe akathisia, will DC risperidone in favor of a less potent antipsychotic, seroquel. schedule seroquel 100/100/500. taper VPA to 250 BID as of tomorrow. propranolol 20 TID started last night for akathisia, will continue for now. 02/01: no change - monitor akathisia decrease on new regimen 02/02: nicotine patch taper to 7 mg; seems to be doing better with switch to Seroquel and augmentation with Propranolol; primary team may f/u with further discussion of behavioral plan 02/03: much improved from last week. calm, linear, logical, topical. slept 6 hours each the last 3 nights. c/o sedation. decrease daytime valium from 5 BID to 2 BID. decrease daytime seroquel from 100 BID to 75 BID. taper VPA from 250 BID to 250 QHS. 02/04: remains much improved. no overt MSE abnormalities. c/o sedation, decrease seroquel from 75 BID to 50 BID and from 500 QHS to 400 QHS. DC VPA entirely. otherwise continue current mgmt. 02/05: backsliding today. irritable, erratic, more disorganized, labile. stating her intent to stop taking medications, demanding discharge. continue current mgmt. 02/06: much improved today. calm, logical, cogent and topical. pt would like to taper off of valium (addicting) and onto a proper mood stabilizer. corporate legal secretary notified. DC daytime valium. restart prazosin due to c/o nightmares. decrease propranolol from 20 TID to 10 TID (should no longer be necessary as off of medications likely to cause akathisia). MA daytime seroquel tomorrow. 02/07: similar conversation to yesterday. MA daytime seroquel. awaiting word from legal re adding lithium. otherwise continue current mgmt. 02/08: keeping to self. irritable edge. pt reports feeling overwhelmed d/t room change. medication compliant. focused on returning home. denies SI/HI/VH/AH. per nursing, slept 6 hours last night. continue current tx plan. 02/09: irritable edge. medication compliant. focused on returning home. intrusive during a peer's treatment; declined to walk away when asked by staff multiple times; poor insight and judgment. pt became upset after meeting with her mother; pt stated, my mom says its my behavior why I'm still here. I think they are keeping me here because I locked myself in that room . Valium decreased to 10mg PO bedtime. 02/10: irritable. medication compliant. Perseverative on discharge. Patient reports sleeping well last night. Appears calmer today. She reports visit with her mother when well. Denies SI/HI/VH/AH. Attending groups. Continue current treatment plan. 02/11/25: Irritable, irrational regarding why she is still being here. Poor insight and poor judgment. Not thinks she has bipolar. She only believes she has has ADHD and autism, therefore she does not need to be here and that no reason to keep her here longer. As a future, she does not think she going to continue taking medication after discharge per nursing. Racing thoughts. At times she is calm, able to attend groups, and some what appropriate. Have good visit with brother and mom yesterday. Not able to discuss for medication change due to agitated/irritable mood. 02/12/25: Been sleeping well, no issue with appetite, attended groups, have visit with mom. Both mom and patient the nurse believe that patient is not manic or having any bipolar features. They only believe that she has ADHD and autism. Mom advocate for patient to be discharged. Mom claims that the treatment team has not ever reach out to her. Both of the agree to have a family meeting in the future. We will leave message to the team to set it up. Patient has some mood swing, but overall, continued to improve with help of the medication. She wants to be off from Valium, but do not want any other medication change. Both Seroquel and Valium is on Muniz order. No other safety concerns. 02/13/25: Slept well, compliant with medications, refused nicotine patch on. Observed visible and attending groups, irritable at times, hyper focused on discharge as her normal baseline of everyday. Do not want any medication change. Reports gaining 28 lb since she got here. Nutrition consult placed. We will add Adderall on allergy list which make her psychotic. Patient to nursing put it in her allergy list. Some labile mood, pressured speech. 02/14: continue current tx plan. 02/15/25: Slept well, manage meal intake, portion size, healthier snacks to control her weight gain. Met with the dietitian today. She also ask staff to pronounce the list of healthy/happy food. Family brought in some healthy snack for her. She was mad being wakened up to get vital signs in the morning by nursing staff. Denies suicidal thoughts, denies hallucinations. She asked questions regarding diagnosis. Educate her regarding psychosis that she came with. Explained with her regarding medication she has been taking here, she will be discharged with, and then work with the outpatient psychiatrist to continue with medication, making any change if necessary. She is more receptive with the plan, more rationale when she is not in the bad mood. She appreciates the time I spent talking to her today. She attended groups, visible. No ADLs issues. Can be irritable at times. Refused her propranolol in the morning. She took multivitamins later on of the day after she refused. Change nicotine patch to p.r.n.. 02/16/25: Reported that she was angry, other than that she feels mood more stable today. Nursing staff contacted this provider reported that patient in the past was allowed using the head phone at night to cancel out the noise. Patient asked if she was allowed to use it again. Patient focused on healthy food, eating yogurt only in the morning. Family brought in more seeds instead of eating unhealthy food from hospital. She also was irritable as someone touching her clothes in the washer. She has a couple visits today. She feels ready to leave and stable enough to go home to community. She is looking forward to talk to her attending this week regarding discharge. Denies other safety concerns. She has been irritable at times, but able to control her anger. She said this is her baseline, and being in here is make her more irritable. Had phones use overnight order was discontinued per policy. 02/17: calm, logical, cooperative. appearing overly controlled, unnatural in doing so. medications plan at our last meeting resurrected - start lithium, taper seroquel and valium. pt states she is open to mood stabilizers. informs pt he believes she lacks capacity presently and will notify environmental attorney to communicate with pt's environmental attorney. hospital environmental attorney notified. continue current mgmt for now. 02/18: corresponding with environmental attorney re stipulated agreement. pt intrusive with peers and resistant to redirection by staff. with pt is calm and cooperative, but attempting to engage in argument justifying her intrusive behavior. continue current mgmt. slept well. 02/19/25: showered in the morning, reasonable, , slept for 6 hours I was up for snack , compliant with meds except Propranonol at 1500 yesterday. She asked if she can use electric razor to trim the pubic hair which was not allowed per safety and unit policy. Continue working healthy diet and snack. 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 No major behavior issues. Sometimes ask for stuff she knows they are not allowed. Continue with the plan. 02/20: refused seroquel last night, did not receive IM back-up. appears with bizarre smile today, believes she doesn't need medications and is ready to discharge. 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 plan for lithium in lieu of valium and seroquel, ideally, reviewed. pt appears to have very poor retention, as this plan has been discussed numerous times. pt was encouraged to discuss with her environmental attorney and was given her environmental attorney's contact information ([facility] number). 02/21: talking about not taking meds once discharged. refusing meds then taking them last second prior to IM administration. labile, irritable. very disorganized today, severely impaired cognitive performance. restart valium 5 and seroquel 75 BID at 0900, 1500. otherwise continue current mgmt. awaiting word from automotive parts specialist re stipulated agreement for mood stabilizers. 02/22: Continue current regimen and plans. Orajel ordered. 02/23: Continue current plans and regimen 02/24: more organized and less oppositional, labile, intrusive, impulsive than monday. willing to take lithium. per environmental attorney, we may have a stipulated agreement. continue current mgmt for now, hoping to start lithium GIRISH. 02/25/25: Amend the treatment plan to include mood stabilizer [place] Carbonate as primary treatment at therapeutic blood levels. Organized at times but when she is more anxious, less rationale. She does not accept new add on [place] on Wei's order that is effective today it is fake, you can keep it. I need to talk to my military lawyer . why I need [place]?I do not have bipolar . She believes she has autism and ADHD only. She asked inappropriate question such as if this provider knowing what JERSON and if this provider used it before. Patient asked to get her OP therapist to involve in decision making on meds. Prior to this conversation, she was calm, showing pictures of herself and family members that she has personal space for them on the wall. Some labile mood, underline irritable but no angry outburst. At some point, she states that Seroquel added on during daytime is helping with her mood and that I was not mad when she was waken up this morning. Denies SI/SIB/HI/AVH [place] ER 600mg daily at HS for mood. With some labs ordered for basleine CMP, TSH, Free T4. Patient educated on: diagnosis, medication risk/benefits, substance abuse and therapeutic strategies Informed Consent: further education needed Reason for continued inpatient stay Substantial Risk for: med/psych decompensation Time Spent With Patient Time: Total time managing care of this patient today ____ minutes.
[2025-02-25 20:00] VITALS: BP 136/64; PULSE 100; RESP 16; TEMP 37.2; O2SAT 97
[2025-02-25 20:27] VITALS: BP 136/64; PULSE 100
[2025-02-25 20:28] VITALS: BP 136/64
[2025-02-26 08:36] VITALS: BP 118/68; PULSE 118; RESP 16; TEMP 36.7; O2SAT 98
[2025-02-26] MEDS: Calcium + Vitamin D 250 MG TABLET PO ×2 (08:37→16:48)
[2025-02-26 09:20] LABS: Alanine Aminotransferase 19 U/L (0-31); Albumin Level 4.2 g/dL (3.5-5.0); Alkaline Phosphatase 69 U/L (39-117); Anion Gap 12 (12-20); Aspartate Amino Transferase 25 U/L (5-31); Blood Urea Nitrogen 17 mg/dL (9-16); Calcium 9.3 mg/dL (8.4-10.2); Carbon Dioxide 26 mmol/L (22-29); Chloride 106 mmol/L (96-108); Creatinine Clr Calc Pharmacy 119.9; Estimated Glomerular Filt Rate > 60; Potassium 4.1 mmol/L (3.3-5.1); Sodium 140 mmol/L (135-145); Total Protein 6.8 g/dL (6.5-8.0)
[2025-02-26 09:35] LABS: Thyroid Stimulating Hormone 1.10 uIU/mL (0.32-4.0)
--- NOTE | 2025-02-26 11:44 | HO.PSYCHPN ---
Subjective Subjective Date of Service: 02/26/25 Reason For Visit: Crisis Subjective Notes: Muniz Order and Section 8 Healthcare Proxy: No Guardianship: No Medical Problems Affecting Mental Status: No Interim History: Medical record and nursing notes reviewed; case discussed during rounds with team/nursing staff, and met with patient for supportive therapy/psychoeducation, as well as medication management. Slept 8 hours, compliant with medications except on lithium which was started 1st dose last night around Muniz' order. She asked inappropriate personal questions do you have bipolar . Are you the terrist toward another provider on the unit. When she handed the staple she took it out from the handout, saying are you gonna swallow it?. You are dangerous . Distract herself from the conversation when paper that she arranges on the table. Continued to denies that fact that she is bipolar. Believe that within 50 days + provider cannot dx her with BP. She wanted to fire her employee benefits attorney. HRO came up to meet with patient. [place] now has an IM backup. Medication Compliance: No (Refused lithium scheduled 1st dose last night) Side effects from medications: No Attending Groups: Intermittent Review of Systems Acute medical concerns: No Medical Review of Systems: unchanged Review of Systems Review of Systems Constitutional: Denies fatigue and Denies fever(s) Cardiovascular: Denies chest pain and Denies dyspnea Respiratory: Denies dyspnea Gastrointestinal: Denies abdominal pain Psychiatric: denies suicidal ideation Endocrine: Denies fatigue Yes all other systems are reviewed and are negative Mental Status Exam Mental Status Exam Narrative: Appearance: adequately dressed and groomed Behavior: no PMA/PMR. Labile, irritable Speech: incr amount, nml loudness. nml latency. TP: disorganized, rumination TC: asking in appropriate personal questions/content, not agree with treatment of [place] Mood: euthymic Affect: calm, blunted AH/VH: none expressed Insight/judgment: impaired Memory/cog: alert, impaired. Diagnostics Vital Signs (24Hr): Vital Signs - 24 hr 02/25/25 15:10 02/25/25 20:00 02/25/25 20:27 Temperature 98.9 F Pulse Rate 102 H 100 100 Respiratory Rate 16 Blood Pressure 120/57 L 136/64 136/64 Pulse Oximetry 97 Oxygen Delivery Method Room Air 02/25/25 20:28 02/26/25 08:36 Temperature 98.1 F Pulse Rate 118 H Respiratory Rate 16 Blood Pressure 136/64 118/68 Pulse Oximetry 98 Oxygen Delivery Method Room Air BMI result Body Mass Index 22.9 Labs 01/09/25 16:36 02/26/25 08:32 Labs: Laboratory Results - last 48 hr 02/26/25 08:32 Sodium 140 Potassium 4.1 D Chloride 106 Carbon Dioxide 26 Anion Gap 12 BUN 17 H Creatinine 0.60 Estim Creat Clear Calc 119.9 Estimated GFR > 60 Random Glucose 85 Calcium 9.3 Total Bilirubin 0.4 AST 25 ALT 19 Alkaline Phosphatase 69 Total Protein 6.8 Albumin 4.2 TSH 1.10 Imaging Radiology Impressions: ITS Impressions Hand X-Ray 01/16/25 11:30 IMPRESSION: Unremarkable right hand Electronically signed by: Casa Rush MD 01/16/2025 11:46 AM EDT RP Hand X-Ray 01/29/25 07:30 IMPRESSION: Unremarkable examination of the right hand. Electronically signed by: Obdulio Tolbert MD 01/30/2025 07:56 AM EDT RP Medications Medications Current Medications Acetaminophen (Acetaminophen 325 Mg Tablet) 650 mg PO Q6H PRN PRN Reason: Headache/Pain, Scale 1-10 Last Admin: 02/25/25 04:00 Dose: 650 mg Al Hydroxide/Mg Hydroxide (Magnesium Hydrox/Alum Hydrox 30 Ml Oral.Susp) 30 ml PO Q6H PRN PRN Reason: Heartburn/Nausea Last Admin: 01/30/25 14:06 Dose: 30 ml Artificial Tears (Artificial Tears 15 Ml Drops) 2 drop EYE-BOTH Q4H PRN PRN Reason: Dry Eyes Last Admin: 02/06/25 09:24 Dose: 2 drop Benzocaine (Benzocaine 20 % Oral Gel 14 Gm Tube) 1 appl MUCOUS MEM QID PRN; Protocol PRN Reason: Pain, Mild 1-3,fever,headache Last Admin: 02/25/25 03:58 Dose: 1 appl Calcium Carbonate/Cholecalciferol (Calcium + Vitamin D 250 Mg Tablet) 250 mg PO BIDWM VERONICA Last Admin: 02/26/25 08:37 Dose: 250 mg Diazepam (Diazepam 5 Mg Tablet) 5 mg PO Q4H PRN PRN Reason: agitation Last Admin: 02/18/25 08:48 Dose: 5 mg Diazepam (Diazepam 10 Mg/2 Ml Cartridge) 5 mg IM TID PRN PRN Reason: refuse Seroquel,[place],Valium Last Admin: 02/04/25 20:13 Dose: 5 mg Diazepam (Diazepam 5 Mg Tablet) 10 mg PO BEDTIME VERONICA Last Admin: 02/25/25 20:27 Dose: 10 mg Diazepam (Diazepam 5 Mg Tablet) 5 mg PO BID@0900,1500 VERONICA Last Admin: 02/26/25 08:37 Dose: 5 mg Docusate Sodium (Docusate Sodium 100 Mg Capsule) 100 mg PO BID PRN PRN Reason: Constipation Last Admin: 01/30/25 20:10 Dose: 100 mg Haloperidol Lactate (Haloperidol Lactate 5 Mg/Ml Vial) 5 mg IM TID PRN PRN Reason: refusal of scheduled seroquel Last Admin: 02/04/25 20:14 Dose: 5 mg Hydrocortisone (Hydrocortisone 2.5 % Rectal Cr 30 Gm Tube) 1 appl LA DAILY PRN PRN Reason: hemrroids Last Admin: 01/26/25 14:57 Dose: 1 appl [place] Carbonate ([place] Carbonate Er 300 Mg Tablet.Er) 300 mg PO BID VERONICA Magnesium Hydroxide (Milk Of Magnesia 30 Ml Oral.Susp) 30 ml PO DAILY PRN PRN Reason: Constipation Last Admin: 01/26/25 14:59 Dose: 30 ml Multivitamins/Vitamin C (Multivitamin Tablet) 1 tab PO DAILY VERONICA Last Admin: 02/26/25 08:37 Dose: 1 tab Nicotine (Nicotine 7 Mg Patch.Td24) 7 mg TRANSDERMA DAILY PRN PRN Reason: Nicotine craving Nicotine Polacrilex (Nicotine Polacrilex 2 Mg Gum) 4 mg BUCCAL Q2H PRN PRN Reason: Nicotine Cravings Last Admin: 02/21/25 17:26 Dose: 4 mg Polyethylene Glycol (Polyethylene Glycol 3350 17 Gm Powd.Pack) 17 gm PO DAILY PRN PRN Reason: constipation Prazosin HCl (Prazosin Hcl 1 Mg Capsule) 1 mg PO BEDTIME VERONICA; Protocol Last Admin: 02/25/25 20:28 Dose: 1 mg Propranolol HCl (Propranolol Hcl 10 Mg Tablet) 10 mg PO TID VERONICA; Protocol Last Admin: 02/26/25 08:38 Dose: 10 mg Quetiapine Fumarate (Quetiapine Fumarate 400 Mg Tablet) 400 mg PO BEDTIME VERONICA Last Admin: 02/25/25 20:28 Dose: 400 mg Quetiapine Fumarate (Quetiapine Fumarate 25 Mg Tablet) 75 mg PO BID@0900,1500 [facility] Last Admin: 02/26/25 08:37 Dose: 75 mg Allergies Allergies Allergy/AdvReac Type Severity Reaction Status Date / Time amphetamine (From Adderall) Allergy Severe psychosis/ Verified 02/13/25 22:40 Manic dextroamphetamine (From Allergy Severe psychosis/ Verified 02/13/25 22:40 Adderall) Manic olanzapine (From Zyprexa) AdvReac Rash Verified 12/31/24 18:41 Assessment & Plan Assessment & Plan (1) Psychosis: Status: Acute Code(s): F29 - Unspecified psychosis not due to a substance or known physiological condition Plan Ms. Sheridan is a 34 year-old woman who presents with s/s of psychosis, disorganized, some degree of paranoia. She had similar episode back in 2020. 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 I do suspect that there may be underlying psychiatric disorder that is triggered by amphetamine use but not necessarily caused by it. Further evaluation to clarify dx is needed. We discussed inpt level of care. We also discussed restarting risperidone 1mg po BID. low dose clonazepam. continue clonidine. 1. IPLOC 2. start risperidone 1mg po BID. Clonazepam 0.5mg po BID. 01/05: Continue current regimen and plans. 01/06: slept only 2 hours, disorganized, decompensated behaviors. unable to interact cogently. refusing risperidone, will offer seroquel instead. possible bipolar diathesis, T/C mood stabilizer. delirium also a possibility, as the mental status change since admission appears to be striking. 01/07: took seroquel 200 last night, slept 5.5 hours. more organized, linear, able to engage today. continue current mgmt. 01/08: refused seroquel last NOC, slept only 30 minutes. agitated, bizarre, disorganized today. commitment paperwork filed. 01/09: refused meds yesterday but got IMs due to behaviors (outbursts, touching peers, yelling, banging doors, pushed her sitter, climbing on tables and chairs. threatening to stab self with pens). more linear and engageable today, once again the day after having takenm medication. agrees to continue to take seroquel 200 mg QHS. 01/10: took seroquel last NOC and slept 4 hours overnight, but bizarre today. less agitation and intrusiveness than yesterday, but still bizarre and fairly intrusive. pt appears willing to take risperidone, will DC seroquel and return to dosing of risperidone 2 mg BID. took first dose this afternoon. court next monday. 01/11 very paranoid, fearful, taking medications 01/12 continue tx. 01/13: appears a bit more organized today than when not taking medications, although slow and processing poorly. declines to sign CV. commitment hearing tomorrow. 01/14: hearing continued until 01/24 for SINDY. add klonopin 0.5 BID ODT, change risperidone formulation to liquid (pt has been inducing vomiting repeatedly with toothbrush). hold toothbrush unless actively brushing teeth. continues interactive to some extent with MD today, but has been grabbing badges, touching others, and tried to vault into the nursing station in the past 24H. 01/15: IM medication after threatening to punch nurse staff industrial with intrusive and aggressive behaviors toward peers. pt did not take klonopin as ordered yesterday. DC klonopin and start VPA 500 BID. per staff, running. tried to make herself vomit after taking PRN. labile. ate her feces in the shower and tried to feed it to her 1:1. crawling under tables. tried to jump into nurses station x2. took her shirt off and swinging it around. did not sleep at all. slept at 7:30am. 01/16: refusing VPA, taking risperidone. napped after IMs yesterday. has been bizarre and labile since. slept only 2 hours overnight. continue current mgmt. 01/17: agitated, bizarre, and aggressive behaviors yesterday (punching and kicking beard, stripping off in milieu, attempting to intimidate staff, grabbing stress balls out of staff's hands). did take VPA this morning on its being offered a second time. more calm today. taking risperidone. 01/18: intermittently refusing VPA, seems to be taking risperidone. asks MD if he is alive, then proposes elbow bump. accusing staff of stealing her things (phone), calling mother and conduit cleaner in the middle of the night. slept less than 4 hours. 01/19: more lucid today. concerned about risperidone weight gain. agrees to DC risperidone and try prolixin instead, starting at 2.5 BID. 01/20: very disorganized, bizarre, psychotic today. likely due to equivalent dosing of prolixin being given much lower than prior risperidone. as pt seems to be tolerating prolixin without issues, increase prolixin dosing from 2.5 BID to 5 BID. otherwise continue current mgmt. 01/21: less bizarre and disorganized, but still quite ill. variably compliant with medications. c/o leg pain, lowering self to floor; started cogentin 0.5 BID due to concern for dystonia. c/o nightmares, h/o prazosin with good effect. add prazosin 1 mg QHS as of tonight. 01/22: Patients states that she is good. She is scared of [place] herpes after having sex. She refused to participate in an interview with this provider, and walked away stating i don't need a provider. She was observed by this provider, pacing the [place]. Continue current treatment regimen. 01/23: disorganized and dangerous behaviors. voluntarily took IMs. court tomorrow. 01/24: remains disorganized. ran into staff member yesterday, postured and threatened other staff afterward. slept about 6.[address] this afternoon. 01/25/25: Staff 5 6 hours with broken sleep. Compliant with medication with lots of encouragement from yesterday, refused her vitamins in the morning. CT scan was negative, she fell early in the morning, witness her head hit the wall the trying to put her pants on. Slightly improved in mood with medication compliant. VPA level is 52,1 low side. However patient not consistently take it every day. We will recheck. He is on section 8. Pending Wei's order. Less irritable, less racing. 01/26/25: Mostly compliant with medication, to 250/750 mg of Depakote scheduled at bedtime. Labile, restless, poor boundaries, sexually inappropriate behavior, mood is aggravated . Disorganized. Slightly improving but not much. She is better in terms of compliant with medications. 01/27: mostly compliant with meds. improved from last week, more organized and less labile today. agreement reached on medications, reinstate risperidone as primary antipsychotic Tx, remove request for mood stabilizers, remove ativan. DC prolixin, begin taper of VPA, restart risperidone 2 BID, add thorazine 100 and valium 10 at HS to encourage sleep. awaiting med order. 01/28: last evening was pushing, attempting to kick and bite staff, shoulder-checked peer, exposing genitalia to 1:1 staff. took meds last night and this morning. court order received today, reviewed, medications adjusted to comply with order. reportedly more linear today, but pt declined to meet with MD after brief psychotic interaction with MD. 01/29: dysregulated, agitated behaviors continue last night. calmer days. refused VPA this morning. continue VPA taper, decrease from 500 BID to 250 TID as of today. increase HS seroquel from 300 mg to 400 mg as of tonight and HS valium from 10 mg to 15 mg as of tonight for sleep and sylwia. 01/30: same pattern of calm days through mid-afternoon, then decompensation. add third scheduled dosing of risperidone in the middle of the day, schedule valium in the morning and at 3 pm, otherwise continue current mgmt. increase HS seroquel if pt does not sleep more than several hours tonight. continue VPA taper tomorrow. 01/31: calm, morning. severe akathisia eves, unable to sleep or remain still. slept only 2.5 hours. due to 4 mg risperidone daily being inadequate to treat Sx and 6 mg causing severe akathisia, will DC risperidone in favor of a less potent antipsychotic, seroquel. schedule seroquel 100/100/500. taper VPA to 250 BID as of tomorrow. propranolol 20 TID started last night for akathisia, will continue for now. 02/01: no change - monitor akathisia decrease on new regimen 02/02: nicotine patch taper to 7 mg; seems to be doing better with switch to Seroquel and augmentation with Propranolol; primary team may f/u with further discussion of behavioral plan 02/03: much improved from last week. calm, linear, logical, topical. slept 6 hours each the last 3 nights. c/o sedation. decrease daytime valium from 5 BID to 2 BID. decrease daytime seroquel from 100 BID to 75 BID. taper VPA from 250 BID to 250 QHS. 02/04: remains much improved. no overt MSE abnormalities. c/o sedation, decrease seroquel from 75 BID to 50 BID and from 500 QHS to 400 QHS. DC VPA entirely. otherwise continue current mgmt. 02/05: backsliding today. irritable, erratic, more disorganized, labile. stating her intent to stop taking medications, demanding discharge. continue current mgmt. 02/06: much improved today. calm, logical, cogent and topical. pt would like to taper off of valium (addicting) and onto a proper mood stabilizer. legal financial specialist notified. DC daytime valium. restart prazosin due to c/o nightmares. decrease propranolol from 20 TID to 10 TID (should no longer be necessary as off of medications likely to cause akathisia). DC daytime seroquel tomorrow. 02/07: similar conversation to yesterday. DC daytime seroquel. awaiting word from legal re adding lithium. otherwise continue current mgmt. 02/08: keeping to self. irritable edge. pt reports feeling overwhelmed d/t room change. medication compliant. focused on returning home. denies SI/HI/VH/AH. per nursing, slept 6 hours last night. continue current tx plan. 02/09: irritable edge. medication compliant. focused on returning home. intrusive during a peer's treatment; declined to walk away when asked by staff multiple times; poor insight and judgment. pt became upset after meeting with her mother; pt stated, my mom says its my behavior why I'm still here. I think they are keeping me here because I locked myself in that room . Valium decreased to 10mg PO bedtime. 02/10: irritable. medication compliant. Perseverative on discharge. Patient reports sleeping well last night. Appears calmer today. She reports visit with her mother when well. Denies SI/HI/VH/AH. Attending groups. Continue current treatment plan. 02/11/25: Irritable, irrational regarding why she is still being here. Poor insight and poor judgment. Not thinks she has bipolar. She only believes she has has ADHD and autism, therefore she does not need to be here and that no reason to keep her here longer. As a future, she does not think she going to continue taking medication after discharge per nursing. Racing thoughts. At times she is calm, able to attend groups, and some what appropriate. Have good visit with brother and mom yesterday. Not able to discuss for medication change due to agitated/irritable mood. 02/12/25: Been sleeping well, no issue with appetite, attended groups, have visit with mom. Both mom and patient the nurse believe that patient is not manic or having any bipolar features. They only believe that she has ADHD and autism. Mom advocate for patient to be discharged. Mom claims that the treatment team has not ever reach out to her. Both of the agree to have a family meeting in the future. We will leave message to the team to set it up. Patient has some mood swing, but overall, continued to improve with help of the medication. She wants to be off from Valium, but do not want any other medication change. Both Seroquel and Valium is on Muniz order. No other safety concerns. 02/13/25: Slept well, compliant with medications, refused nicotine patch on. Observed visible and attending groups, irritable at times, hyper focused on discharge as her normal baseline of everyday. Do not want any medication change. Reports gaining 28 lb since she got here. Nutrition consult placed. We will add Adderall on allergy list which make her psychotic. Patient to nursing put it in her allergy list. Some labile mood, pressured speech. 02/14: continue current tx plan. 02/15/25: Slept well, manage meal intake, portion size, healthier snacks to control her weight gain. Met with the dietitian today. She also ask staff to pronounce the list of healthy/happy food. Family brought in some healthy snack for her. She was mad being wakened up to get vital signs in the morning by nursing staff. Denies suicidal thoughts, denies hallucinations. She asked questions regarding diagnosis. Educate her regarding psychosis that she came with. Explained with her regarding medication she has been taking here, she will be discharged with, and then work with the outpatient psychiatrist to continue with Muniz orders, making any change if necessary. She is more receptive with the plan, more rationale when she is not in the bad mood. She appreciates the time I spent talking to her today. She attended groups, visible. No ADLs issues. Can be irritable at times. Refused her propranolol in the morning. She took multivitamins later on of the day after she refused. Change nicotine patch to p.r.n.. 02/16/25: Reported that she was angry, other than that she feels mood more stable today. Nursing staff contacted this provider reported that patient in the past was allowed using the head phone at night to cancel out the noise. Patient asked if she was allowed to use it again. Patient focused on healthy food, eating yogurt only in the morning. Family brought in more seeds instead of eating unhealthy food from hospital. She also was irritable as someone touching her clothes in the washer. She has a couple visits today. She feels ready to leave and stable enough to go home to community. She is looking forward to talk to her attending this week regarding discharge. Denies other safety concerns. She has been irritable at times, but able to control her anger. She said this is her baseline, and being in here is make her more irritable. Had phones use overnight order was discontinued per policy. 02/17: calm, logical, cooperative. appearing overly controlled, unnatural in doing so. medications plan at our last meeting resurrected - start lithium, taper seroquel and valium. pt states she is open to mood stabilizers. informs pt he believes she lacks capacity presently and will notify employee benefits attorney to communicate with pt's employee benefits attorney. hospital employee benefits attorney notified. continue current mgmt for now. 02/18: corresponding with employee benefits attorney re stipulated agreement. pt intrusive with peers and resistant to redirection by staff. with pt is calm and cooperative, but attempting to engage in argument justifying her intrusive behavior. continue current mgmt. slept well. 02/19/25: showered in the morning, reasonable, , slept for 6 hours I was up for snack , compliant with meds except Propranonol at 1500 yesterday. She asked if she can use electric razor to trim the pubic hair which was not allowed per safety and unit policy. Continue working healthy diet and snack. 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 No major behavior issues. Sometimes ask for stuff she knows they are not allowed. Continue with the plan. 02/20: refused seroquel last night, did not receive IM back-up. appears with bizarre smile today, believes she doesn't need medications and is ready to discharge. 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 plan for lithium in lieu of valium and seroquel, ideally, reviewed. pt appears to have very poor retention, as this plan has been discussed numerous times. pt was encouraged to discuss with her employee benefits attorney and was given her employee benefits attorney's contact information ([facility] number). 02/21: talking about not taking meds once discharged. refusing meds then taking them last second prior to IM administration. labile, irritable. very disorganized today, severely impaired cognitive performance. restart valium 5 and seroquel 75 BID at 0900, 1500. otherwise continue current mgmt. awaiting word from debubblizer re stipulated agreement for mood stabilizers. 02/22: Continue current regimen and plans. Orajel ordered. 02/23: Continue current plans and regimen 02/24: more organized and less oppositional, labile, intrusive, impulsive than monday. willing to take lithium. per employee benefits attorney, we may have a stipulated agreement. continue current mgmt for now, hoping to start lithium GIRISH. 02/25/25: Amend the treatment plan to include mood stabilizer [place] Carbonate as primary treatment at therapeutic blood levels. Organized at times but when she is more anxious, less rationale. She does not accept new add on [place] on Wei's order that is effective today it is fake, you can keep it. I need to talk to my conduit cleaner . why I need [place]?I do not have bipolar . She believes she has autism and ADHD only. She asked inappropriate question such as if this provider knowing what JERSON and if this provider used it before. Patient asked to get her OP therapist to involve in decision making on meds. Prior to this conversation, she was calm, showing pictures of herself and family members that she has personal space for them on the wall. Some labile mood, underline irritable but no angry outburst. At some point, she states that Seroquel added on during daytime is helping with her mood and that I was not mad when she was waken up this morning. Denies SI/SIB/HI/AVH [place] ER 600mg daily at HS for mood. With some labs ordered for basjovannane CMP, TSH, Free T4. 02/26/25 Slept for 8 hours, compliant with medications except lithium. Rumination, poor insight and judgment, asking inappropriate questions, thought processes not on treatment, racing, anxious, appears to be paranoid. The RN showed the new amended Wei order, she does not believe it is true and wanted fire her employee benefits attorney. HRO notified, met with patient. Continued to she is not bipolar, believes she has PTSD symptoms that causing her mood changes. Want this to talk to her outpatient therapist. We will arrange to make phone call for collateral. Change [place] ER from 600mg at HS to BID with IM of 5mg Valium IM back up if refuse. Patient educated on: diagnosis, medication risk/benefits, substance abuse and therapeutic strategies Informed Consent: further education needed Reason for continued inpatient stay Substantial Risk for: med/psych decompensation Time Spent With Patient Time: Total time managing care of this patient today ____ minutes.
[2025-02-26] MEDS: diazePAM 10 MG/2 ML CARTRIDGE 5 MG IM ×2 (12:37→22:08)
[2025-02-26 15:09] VITALS: BP 118/60; PULSE 110; RESP 16; TEMP 37.1; O2SAT 98
[2025-02-26 20:00] VITALS: BP 109/63; PULSE 103; RESP 16; TEMP 37.2; O2SAT 95
[2025-02-26 21:58] VITALS: BP 109/63; PULSE 103
[2025-02-27 07:00] VITALS: BMI 24.6
[2025-02-27 07:38] VITALS: BP 121/57; PULSE 110; RESP 16; TEMP 36.7; O2SAT 99
[2025-02-27 08:30] VITALS: BP 122/62; PULSE 100
[2025-02-27] MEDS: Calcium + Vitamin D 250 MG TABLET PO ×2 (08:39→18:06)
[2025-02-27] MEDS: diazePAM 10 MG/2 ML CARTRIDGE 5 MG IM (09:00)
[2025-02-27 14:37] VITALS: BP 117/71; PULSE 108
--- NOTE | 2025-02-27 17:20 | HO.PSYCHPN ---
Subjective Subjective Date of Service: 02/27/25 Reason For Visit: Crisis Subjective Notes: [facility]iz Order and Section 8 Healthcare Proxy: No Guardianship: No Medical Problems Affecting Mental Status: No Interim History: Medical record and nursing notes reviewed; case discussed during rounds with team/nursing staff, and met with patient for supportive therapy/psychoeducation, as well as medication management. Continued to sleep and eat well. Working on healthy diet as she has been. Request information regarding lithium. Continued to believe she is not bipolar, continued to refused it but receive IM backup of Valium instead. Appeared to less anxious, less rude compared to yesterday. Good like this provider to call the outpatient therapist to make sure that the diagnosis is was right. She believes the treatment team here can not make any diagnosis without her therapist. Education given, patient not processes, not understanding. Not open to take lithium at this yet. Per nursing staff reports, patient is very mean and rude to other people, especially towards staff. Medication Compliance: Yes (Except lithium. Received IM backup) Side effects from medications: No Attending Groups: Intermittent Review of Systems Acute medical concerns: No Medical Review of Systems: unchanged Review of Systems Review of Systems Constitutional: Denies fatigue and Denies fever(s) Cardiovascular: Denies chest pain and Denies dyspnea Respiratory: Denies dyspnea Gastrointestinal: Denies abdominal pain Psychiatric: denies suicidal ideation Endocrine: Denies fatigue Yes all other systems are reviewed and are negative Mental Status Exam Mental Status Exam Narrative: Appearance: adequately dressed and groomed Behavior: no PMA/PMR. Labile, irritable Speech: incr amount, nml loudness. nml latency. TP: disorganized, rumination TC: asking in appropriate personal questions/content, not agree with treatment of [place] Mood: irritable and rude Affect: calm, blunted AH/VH: none expressed Insight/judgment: impaired Memory/cog: alert, impaired. Diagnostics Vital Signs (24Hr): Vital Signs - 24 hr 02/26/25 20:00 02/26/25 21:58 02/26/25 21:58 Temperature 98.9 F Pulse Rate 103 H 103 H Respiratory Rate 16 Blood Pressure 109/63 109/63 109/63 Pulse Oximetry 95 Oxygen Delivery Method Room Air 02/27/25 07:38 02/27/25 08:30 02/27/25 14:37 Temperature 98.1 F Pulse Rate 110 H 100 108 H Respiratory Rate 16 Blood Pressure 121/57 L 122/62 117/71 Pulse Oximetry 99 Oxygen Delivery Method Room Air BMI result Body Mass Index 24.6 Labs 01/09/25 16:36 02/26/25 08:32 Labs: Laboratory Results - last 48 hr 02/26/25 08:32 Sodium 140 Potassium 4.1 D Chloride 106 Carbon Dioxide 26 Anion Gap 12 BUN 17 H Creatinine 0.60 Estim Creat Clear Calc 119.9 Estimated GFR > 60 Random Glucose 85 Calcium 9.3 Total Bilirubin 0.4 AST 25 ALT 19 Alkaline Phosphatase 69 Total Protein 6.8 Albumin 4.2 TSH 1.10 Imaging Radiology Impressions: ITS Impressions Hand X-Ray 01/16/25 11:30 IMPRESSION: Unremarkable right hand Electronically signed by: Casa Rush MD 01/16/2025 11:46 AM EDT RP Hand X-Ray 01/29/25 07:30 IMPRESSION: Unremarkable examination of the right hand. Electronically signed by: Obdulio Tolbert MD 01/30/2025 07:56 AM EDT RP Medications Medications Current Medications Acetaminophen (Acetaminophen 325 Mg Tablet) 650 mg PO Q6H PRN PRN Reason: Headache/Pain, Scale 1-10 Last Admin: 02/25/25 04:00 Dose: 650 mg Al Hydroxide/Mg Hydroxide (Magnesium Hydrox/Alum Hydrox 30 Ml Oral.Susp) 30 ml PO Q6H PRN PRN Reason: Heartburn/Nausea Last Admin: 01/30/25 14:06 Dose: 30 ml Artificial Tears (Artificial Tears 15 Ml Drops) 2 drop EYE-BOTH Q4H PRN PRN Reason: Dry Eyes Last Admin: 02/06/25 09:24 Dose: 2 drop Benzocaine (Benzocaine 20 % Oral Gel 14 Gm Tube) 1 appl MUCOUS MEM QID PRN; Protocol PRN Reason: Pain, Mild 1-3,fever,headache Last Admin: 02/25/25 03:58 Dose: 1 appl Calcium Carbonate/Cholecalciferol (Calcium + Vitamin D 250 Mg Tablet) 250 mg PO BIDWM VERONICA Last Admin: 02/27/25 08:39 Dose: 250 mg Diazepam (Diazepam 5 Mg Tablet) 5 mg PO Q4H PRN PRN Reason: agitation Last Admin: 02/18/25 08:48 Dose: 5 mg Diazepam (Diazepam 10 Mg/2 Ml Cartridge) 5 mg IM TID PRN PRN Reason: refuse [place] and Valium Last Admin: 02/27/25 09:00 Dose: 5 mg Diazepam (Diazepam 5 Mg Tablet) 10 mg PO BEDTIME VERONICA Last Admin: 02/26/25 21:58 Dose: 10 mg Diazepam (Diazepam 5 Mg Tablet) 5 mg PO BID@0900,1500 VERONICA Last Admin: 02/27/25 14:37 Dose: 5 mg Docusate Sodium (Docusate Sodium 100 Mg Capsule) 100 mg PO BID PRN PRN Reason: Constipation Last Admin: 01/30/25 20:10 Dose: 100 mg Haloperidol Lactate (Haloperidol Lactate 5 Mg/Ml Vial) 5 mg IM TID PRN PRN Reason: refusal of scheduled seroquel Last Admin: 02/04/25 20:14 Dose: 5 mg Hydrocortisone (Hydrocortisone 2.5 % Rectal Cr 30 Gm Tube) 1 appl OH DAILY PRN PRN Reason: hemrroids Last Admin: 01/26/25 14:57 Dose: 1 appl [place] Carbonate ([place] Carbonate Er 300 Mg Tablet.Er) 300 mg PO BID [facility] Last Admin: 02/27/25 09:02 Dose: Not Given Magnesium Hydroxide (Milk Of Magnesia 30 Ml Oral.Susp) 30 ml PO DAILY PRN PRN Reason: Constipation Last Admin: 01/26/25 14:59 Dose: 30 ml Multivitamins/Vitamin C (Multivitamin Tablet) 1 tab PO DAILY VERONICA Last Admin: 02/27/25 08:40 Dose: 1 tab Nicotine (Nicotine 7 Mg Patch.Td24) 7 mg TRANSDERMA DAILY PRN PRN Reason: Nicotine craving Nicotine Polacrilex (Nicotine Polacrilex 2 Mg Gum) 4 mg BUCCAL Q2H PRN PRN Reason: Nicotine Cravings Last Admin: 02/21/25 17:26 Dose: 4 mg Polyethylene Glycol (Polyethylene Glycol 3350 17 Gm Powd.Pack) 17 gm PO DAILY PRN PRN Reason: constipation Prazosin HCl (Prazosin Hcl 1 Mg Capsule) 1 mg PO BEDTIME [facility]; Protocol Last Admin: 02/26/25 21:58 Dose: 1 mg Propranolol HCl (Propranolol Hcl 10 Mg Tablet) 10 mg PO TID [facility]; Protocol Last Admin: 02/27/25 14:37 Dose: 10 mg Quetiapine Fumarate (Quetiapine Fumarate 400 Mg Tablet) 400 mg PO BEDTIME [facility] Last Admin: 02/26/25 21:58 Dose: 400 mg Quetiapine Fumarate (Quetiapine Fumarate 25 Mg Tablet) 75 mg PO BID@0900,1500 [facility] Last Admin: 02/27/25 14:38 Dose: 75 mg Allergies Allergies Allergy/AdvReac Type Severity Reaction Status Date / Time amphetamine (From Adderall) Allergy Severe psychosis/ Verified 02/13/25 22:40 Manic dextroamphetamine (From Allergy Severe psychosis/ Verified 02/13/25 22:40 Adderall) Manic olanzapine (From Zyprexa) AdvReac Rash Verified 12/31/24 18:41 Assessment & Plan Assessment & Plan (1) Psychosis: Status: Acute Code(s): F29 - Unspecified psychosis not due to a substance or known physiological condition Plan Ms. Sheridan is a 34 year-old woman who presents with s/s of psychosis, disorganized, some degree of paranoia. She had similar episode back in 2020. 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 I do suspect that there may be underlying psychiatric disorder that is triggered by amphetamine use but not necessarily caused by it. Further evaluation to clarify dx is needed. We discussed inpt level of care. We also discussed restarting risperidone 1mg po BID. low dose clonazepam. continue clonidine. 1. IPLOC 2. start risperidone 1mg po BID. Clonazepam 0.5mg po BID. 01/05: Continue current regimen and plans. 01/06: slept only 2 hours, disorganized, decompensated behaviors. unable to interact cogently. refusing risperidone, will offer seroquel instead. possible bipolar diathesis, T/C mood stabilizer. delirium also a possibility, as the mental status change since admission appears to be striking. 01/07: took seroquel 200 last night, slept 5.5 hours. more organized, linear, able to engage today. continue current mgmt. 01/08: refused seroquel last NOC, slept only 30 minutes. agitated, bizarre, disorganized today. commitment paperwork filed. 01/09: refused meds yesterday but got IMs due to behaviors (outbursts, touching peers, yelling, banging doors, pushed her sitter, climbing on tables and chairs. threatening to stab self with pens). more linear and engageable today, once again the day after having takenm medication. agrees to continue to take seroquel 200 mg QHS. 01/10: took seroquel last NOC and slept 4 hours overnight, but bizarre today. less agitation and intrusiveness than yesterday, but still bizarre and fairly intrusive. pt appears willing to take risperidone, will DC seroquel and return to dosing of risperidone 2 mg BID. took first dose this afternoon. court next monday. 01/11 very paranoid, fearful, taking medications 01/12 continue tx. 01/13: appears a bit more organized today than when not taking medications, although slow and processing poorly. declines to sign CV. commitment hearing tomorrow. 01/14: hearing continued until 01/24 for SINDY. add klonopin 0.5 BID ODT, change risperidone formulation to liquid (pt has been inducing vomiting repeatedly with toothbrush). hold toothbrush unless actively brushing teeth. continues interactive to some extent with MD today, but has been grabbing badges, touching others, and tried to vault into the nursing station in the past 24H. 01/15: IM medication after threatening to punch staff development coordinator with intrusive and aggressive behaviors toward peers. pt did not take klonopin as ordered yesterday. DC klonopin and start VPA 500 BID. per staff, running. tried to make herself vomit after taking PRN. labile. ate her feces in the shower and tried to feed it to her 1:1. crawling under tables. tried to jump into nurses station x2. took her shirt off and swinging it around. did not sleep at all. slept at 7:30am. 01/16: refusing VPA, taking risperidone. napped after IMs yesterday. has been bizarre and labile since. slept only 2 hours overnight. continue current mgmt. 01/17: agitated, bizarre, and aggressive behaviors yesterday (punching and kicking beard, stripping off in milieu, attempting to intimidate staff, grabbing stress balls out of staff's hands). did take VPA this morning on its being offered a second time. more calm today. taking risperidone. 01/18: intermittently refusing VPA, seems to be taking risperidone. asks MD if he is alive, then proposes elbow bump. accusing staff of stealing her things (phone), calling mother and it portfolio manager in the middle of the night. slept less than 4 hours. 01/19: more lucid today. concerned about risperidone weight gain. agrees to DC risperidone and try prolixin instead, starting at 2.5 BID. 01/20: very disorganized, bizarre, psychotic today. likely due to equivalent dosing of prolixin being given much lower than prior risperidone. as pt seems to be tolerating prolixin without issues, increase prolixin dosing from 2.5 BID to 5 BID. otherwise continue current mgmt. 01/21: less bizarre and disorganized, but still quite ill. variably compliant with medications. c/o leg pain, lowering self to floor; started cogentin 0.5 BID due to concern for dystonia. c/o nightmares, h/o prazosin with good effect. add prazosin 1 mg QHS as of tonight. 01/22: Patients states that she is good. She is scared of [place] herpes after having sex. She refused to participate in an interview with this provider, and walked away stating i don't need a provider. She was observed by this provider, pacing the [place]. Continue current treatment regimen. 01/23: disorganized and dangerous behaviors. voluntarily took IMs. court tomorrow. 01/24: remains disorganized. ran into staff member yesterday, postured and threatened other staff afterward. slept about 6.[address] this afternoon. 01/25/25: Staff 5 6 hours with broken sleep. Compliant with medication with lots of encouragement from yesterday, refused her vitamins in the morning. CT scan was negative, she fell early in the morning, witness her head hit the wall the trying to put her pants on. Slightly improved in mood with medication compliant. VPA level is 52,1 low side. However patient not consistently take it every day. We will recheck. He is on section 8. Pending Wei's order. Less irritable, less racing. 01/26/25: Mostly compliant with medication, to 250/750 mg of Depakote scheduled at bedtime. Labile, restless, poor boundaries, sexually inappropriate behavior, mood is aggravated . Disorganized. Slightly improving but not much. She is better in terms of compliant with medications. 01/27: mostly compliant with meds. improved from last week, more organized and less labile today. agreement reached on medications, reinstate risperidone as primary antipsychotic Tx, remove request for mood stabilizers, remove ativan. DC prolixin, begin taper of VPA, restart risperidone 2 BID, add thorazine 100 and valium 10 at HS to encourage sleep. awaiting med order. 01/28: last evening was pushing, attempting to kick and bite staff, shoulder-checked peer, exposing genitalia to 1:1 staff. took meds last night and this morning. court order received today, reviewed, medications adjusted to comply with order. reportedly more linear today, but pt declined to meet with MD after brief psychotic interaction with MD. 01/29: dysregulated, agitated behaviors continue last night. calmer days. refused VPA this morning. continue VPA taper, decrease from 500 BID to 250 TID as of today. increase HS seroquel from 300 mg to 400 mg as of tonight and HS valium from 10 mg to 15 mg as of tonight for sleep and sylwia. 01/30: same pattern of calm days through mid-afternoon, then decompensation. add third scheduled dosing of risperidone in the middle of the day, schedule valium in the morning and at 3 pm, otherwise continue current mgmt. increase HS seroquel if pt does not sleep more than several hours tonight. continue VPA taper tomorrow. 01/31: calm, morning. severe akathisia eves, unable to sleep or remain still. slept only 2.5 hours. due to 4 mg risperidone daily being inadequate to treat Sx and 6 mg causing severe akathisia, will DC risperidone in favor of a less potent antipsychotic, seroquel. schedule seroquel 100/100/500. taper VPA to 250 BID as of tomorrow. propranolol 20 TID started last night for akathisia, will continue for now. 02/01: no change - monitor akathisia decrease on new regimen 02/02: nicotine patch taper to 7 mg; seems to be doing better with switch to Seroquel and augmentation with Propranolol; primary team may f/u with further discussion of behavioral plan 02/03: much improved from last week. calm, linear, logical, topical. slept 6 hours each the last 3 nights. c/o sedation. decrease daytime valium from 5 BID to 2 BID. decrease daytime seroquel from 100 BID to 75 BID. taper VPA from 250 BID to 250 QHS. 02/04: remains much improved. no overt MSE abnormalities. c/o sedation, decrease seroquel from 75 BID to 50 BID and from 500 QHS to 400 QHS. DC VPA entirely. otherwise continue current mgmt. 02/05: backsliding today. irritable, erratic, more disorganized, labile. stating her intent to stop taking medications, demanding discharge. continue current mgmt. 02/06: much improved today. calm, logical, cogent and topical. pt would like to taper off of valium (addicting) and onto a proper mood stabilizer. executive legal secretary notified. DC daytime valium. restart prazosin due to c/o nightmares. decrease propranolol from 20 TID to 10 TID (should no longer be necessary as off of medications likely to cause akathisia). DC daytime seroquel tomorrow. 02/07: similar conversation to yesterday. DC daytime seroquel. awaiting word from legal re adding lithium. otherwise continue current mgmt. 02/08: keeping to self. irritable edge. pt reports feeling overwhelmed d/t room change. medication compliant. focused on returning home. denies SI/HI/VH/AH. per nursing, slept 6 hours last night. continue current tx plan. 02/09: irritable edge. medication compliant. focused on returning home. intrusive during a peer's treatment; declined to walk away when asked by staff multiple times; poor insight and judgment. pt became upset after meeting with her mother; pt stated, my mom says its my behavior why I'm still here. I think they are keeping me here because I locked myself in that room . Valium decreased to 10mg PO bedtime. 02/10: irritable. medication compliant. Perseverative on discharge. Patient reports sleeping well last night. Appears calmer today. She reports visit with her mother when well. Denies SI/HI/VH/AH. Attending groups. Continue current treatment plan. 02/11/25: Irritable, irrational regarding why she is still being here. Poor insight and poor judgment. Not thinks she has bipolar. She only believes she has has ADHD and autism, therefore she does not need to be here and that no reason to keep her here longer. As a future, she does not think she going to continue taking medication after discharge per nursing. Racing thoughts. At times she is calm, able to attend groups, and some what appropriate. Have good visit with brother and mom yesterday. Not able to discuss for medication change due to agitated/irritable mood. 02/12/25: Been sleeping well, no issue with appetite, attended groups, have visit with mom. Both mom and patient the nurse believe that patient is not manic or having any bipolar features. They only believe that she has ADHD and autism. Mom advocate for patient to be discharged. Mom claims that the treatment team has not ever reach out to her. Both of the agree to have a family meeting in the future. We will leave message to the team to set it up. Patient has some mood swing, but overall, continued to improve with help of the medication. She wants to be off from Valium, but do not want any other medication change. Both Seroquel and Valium is on Muniz order. No other safety concerns. 02/13/25: Slept well, compliant with medications, refused nicotine patch on. Observed visible and attending groups, irritable at times, hyper focused on discharge as her normal baseline of everyday. Do not want any medication change. Reports gaining 28 lb since she got here. Nutrition consult placed. We will add Adderall on allergy list which make her psychotic. Patient to nursing put it in her allergy list. Some labile mood, pressured speech. 02/14: continue current tx plan. 02/15/25: Slept well, manage meal intake, portion size, healthier snacks to control her weight gain. Met with the dietitian today. She also ask staff to pronounce the list of healthy/happy food. Family brought in some healthy snack for her. She was mad being wakened up to get vital signs in the morning by nursing staff. Denies suicidal thoughts, denies hallucinations. She asked questions regarding diagnosis. Educate her regarding psychosis that she came with. Explained with her regarding medication she has been taking here, she will be discharged with, and then work with the outpatient psychiatrist to continue with Muniz orders, making any change if necessary. She is more receptive with the plan, more rationale when she is not in the bad mood. She appreciates the time I spent talking to her today. She attended groups, visible. No ADLs issues. Can be irritable at times. Refused her propranolol in the morning. She took multivitamins later on of the day after she refused. Change nicotine patch to p.r.n.. 02/16/25: Reported that she was angry, other than that she feels mood more stable today. Nursing staff contacted this provider reported that patient in the past was allowed using the head phone at night to cancel out the noise. Patient asked if she was allowed to use it again. Patient focused on healthy food, eating yogurt only in the morning. Family brought in more seeds instead of eating unhealthy food from hospital. She also was irritable as someone touching her clothes in the washer. She has a couple visits today. She feels ready to leave and stable enough to go home to community. She is looking forward to talk to her attending this week regarding discharge. Denies other safety concerns. She has been irritable at times, but able to control her anger. She said this is her baseline, and being in here is make her more irritable. Had phones use overnight order was discontinued per policy. 02/17: calm, logical, cooperative. appearing overly controlled, unnatural in doing so. medications plan at our last meeting resurrected - start lithium, taper seroquel and valium. pt states she is open to mood stabilizers. MD informs pt he believes she lacks capacity presently and will notify district attorney to communicate with pt's district attorney. hospital district attorney notified. continue current mgmt for now. 02/18: corresponding with district attorney re stipulated agreement. pt intrusive with peers and resistant to redirection by staff. with pt is calm and cooperative, but attempting to engage in argument justifying her intrusive behavior. continue current mgmt. slept well. 02/19/25: showered in the morning, reasonable, , slept for 6 hours I was up for snack , compliant with meds except Propranonol at 1500 yesterday. She asked if she can use electric razor to trim the pubic hair which was not allowed per safety and unit policy. Continue working healthy diet and snack. 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 No major behavior issues. Sometimes ask for stuff she knows they are not allowed. Continue with the plan. 02/20: refused seroquel last night, did not receive IM back-up. appears with bizarre smile today, believes she doesn't need medications and is ready to discharge. 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 plan for lithium in lieu of valium and seroquel, ideally, reviewed. pt appears to have very poor retention, as this plan has been discussed numerous times. pt was encouraged to discuss with her district attorney and was given her district attorney's contact information ([facility] number). 02/21: talking about not taking meds once discharged. refusing meds then taking them last second prior to IM administration. labile, irritable. very disorganized today, severely impaired cognitive performance. restart valium 5 and seroquel 75 BID at 0900, 1500. otherwise continue current mgmt. awaiting word from electrical foreman re stipulated agreement for mood stabilizers. 02/22: Continue current regimen and plans. Orajel ordered. 02/23: Continue current plans and regimen 02/24: more organized and less oppositional, labile, intrusive, impulsive than monday. willing to take lithium. per district attorney, we may have a stipulated agreement. continue current mgmt for now, hoping to start lithium GIRISH. 02/25/25: Amend the treatment plan to include mood stabilizer [place] Carbonate as primary treatment at therapeutic blood levels. Organized at times but when she is more anxious, less rationale. She does not accept new add on [place] on Wei's order that is effective today it is fake, you can keep it. I need to talk to my it portfolio manager . why I need [place]?I do not have bipolar . She believes she has autism and ADHD only. She asked inappropriate question such as if this provider knowing what JERSON and if this provider used it before. Patient asked to get her OP therapist to involve in decision making on meds. Prior to this conversation, she was calm, showing pictures of herself and family members that she has personal space for them on the wall. Some labile mood, underline irritable but no angry outburst. At some point, she states that Seroquel added on during daytime is helping with her mood and that I was not mad when she was waken up this morning. Denies SI/SIB/HI/AVH [place] ER 600mg daily at HS for mood. With some labs ordered for lolita CMP, TSH, Free T4. 02/26/25 Slept for 8 hours, compliant with medications except lithium. Rumination, poor insight and judgment, asking inappropriate questions, thought processes not on treatment, racing, anxious, appears to be paranoid. The RN showed the new amended Wei order, she does not believe it is true and wanted fire her district attorney. HRO notified, met with patient. Continued to she is not bipolar, believes she has PTSD symptoms that causing her mood changes. Want this to talk to her outpatient therapist. We will arrange to make phone call for collateral. Change [facility] from 600mg at HS to BID with IM of 5mg Valium IM back up if refuse. 02/27/25: Slept for 8 hours, compliant with medications, except for lithium-received Valium IM backup. Continued to resist to mood stabilizer, poor judgment, poor insight, do not believe she has bipolar. Nursing staff reports she was rude, inappropriate with staff, asking inappropriate questions. Racing thoughts. Request information regarding lithium. Nursing staff pronounced the handout, she has not in hand. Side effects noted. We will contact Josy Franklin- [facility] therapist at [phone] per patient request as she believes that her therapist should be involved in the decision making regarding diagnosis. Patient educated on: diagnosis, medication risk/benefits, substance abuse and therapeutic strategies Reason for continued inpatient stay Substantial Risk for: med/psych decompensation Time Spent With Patient Time: Total time managing care of this patient today ____ minutes.
[2025-02-27 20:20] VITALS: BP 136/58; PULSE 107; RESP 18; TEMP 36.2; O2SAT 96
[2025-02-28] MEDS: Benzocaine 20 % Oral Gel 14 GM TUBE 1 APPL MUCOUS MEM (03:51)
[2025-02-28] MEDS: Calcium + Vitamin D 250 MG TABLET PO ×2 (08:43→17:14)
[2025-02-28 08:44] VITALS: BP 118/64; PULSE 105
[2025-02-28 08:53] VITALS: BP 118/64; PULSE 105; RESP 16; TEMP 36.9; O2SAT 97
--- NOTE | 2025-02-28 12:04 | HO.PSYCHPN ---
Subjective Subjective Date of Service: 02/28/25 Reason For Visit: Crisis Subjective Notes: Muniz Order and Section 8 Healthcare Proxy: No Guardianship: No Medical Problems Affecting Mental Status: No Interim History: Medical record and nursing notes reviewed; case discussed during rounds with team/nursing staff, and met with patient for supportive therapy/psychoeducation, as well as medication management. Continued to improve in sleep. Medication compliant, except for lithium yesterday morning. She took the evening dose per nursing report. Nurse's also provide patient with information related to lithium. Patient request the current Muniz order. Given a copy. She finally wants to keep it as she has been referred to review. She requests take her off from Seroquel if this provider wants her to text lithium which is unreasonable as she requests to take her off of them. Not able to rationale with her about the medication plan. Slightly having some open and accepting lithium. At home she will compliant do well with the lithium. In the future when she got into therapeutic level targeting labile mood, we can taper down on Seroquel or taper down on Valium. At this current time, due to current mental status, she can not process the information, not register in her mind for medication plans at this time. She does not trust the provider, she does not believe she has bipolar which is hard to convince her to take lithium. Attempted to call Josy BLACKBURN therapist at [phone]. Left voices message with lead front end developer. Waiting for a call back. Medication Compliance: Yes (Refused Thatcher in the morning but took HS dose last night. ) Side effects from medications: No Attending Groups: Intermittent Review of Systems Acute medical concerns: No Medical Review of Systems: unchanged Review of Systems Review of Systems Constitutional: Denies fatigue and Denies fever(s) Cardiovascular: Denies chest pain and Denies dyspnea Respiratory: Denies dyspnea Gastrointestinal: Denies abdominal pain Psychiatric: denies suicidal ideation Endocrine: Denies fatigue Yes all other systems are reviewed and are negative Mental Status Exam Mental Status Exam Narrative: Appearance: adequately dressed and groomed Behavior: no PMA/PMR. Labile, irritable Speech: incr amount, nml loudness. nml latency. TP: disorganized, rumination TC: asking in appropriate personal questions/content, not agree with treatment of Thatcher but took first dose PO last night. Mood: irritable and rude Affect: calm, blunted AH/VH: none expressed Insight/judgment: impaired Memory/cog: alert, impaired. Diagnostics Vital Signs (24Hr): Vital Signs - 24 hr 02/27/25 14:37 02/27/25 20:20 02/28/25 08:44 Temperature 97.2 F Pulse Rate 108 H 107 H 105 H Respiratory Rate 18 Blood Pressure 117/71 136/58 L 118/64 Pulse Oximetry 96 Oxygen Delivery Method Room Air 02/28/25 08:53 Temperature 98.5 F Pulse Rate 105 H Respiratory Rate 16 Blood Pressure 118/64 Pulse Oximetry 97 Oxygen Delivery Method Room Air BMI result Body Mass Index 24.6 Labs 01/09/25 16:36 02/26/25 08:32 Imaging Radiology Impressions: ITS Impressions Hand X-Ray 01/16/25 11:30 IMPRESSION: Unremarkable right hand Electronically signed by: Casa Rush MD 01/16/2025 11:46 AM EDT RP Hand X-Ray 01/29/25 07:30 IMPRESSION: Unremarkable examination of the right hand. Electronically signed by: Obdulio Tolbert MD 01/30/2025 07:56 AM EDT RP Medications Medications Current Medications Acetaminophen (Acetaminophen 325 Mg Tablet) 650 mg PO Q6H PRN PRN Reason: Headache/Pain, Scale 1-10 Last Admin: 02/28/25 03:51 Dose: 650 mg Al Hydroxide/Mg Hydroxide (Magnesium Hydrox/Alum Hydrox 30 Ml Oral.Susp) 30 ml PO Q6H PRN PRN Reason: Heartburn/Nausea Last Admin: 01/30/25 14:06 Dose: 30 ml Artificial Tears (Artificial Tears 15 Ml Drops) 2 drop EYE-BOTH Q4H PRN PRN Reason: Dry Eyes Last Admin: 02/06/25 09:24 Dose: 2 drop Benzocaine (Benzocaine 20 % Oral Gel 14 Gm Tube) 1 appl MUCOUS MEM QID PRN; Protocol PRN Reason: Pain, Mild 1-3,fever,headache Last Admin: 02/28/25 03:51 Dose: 1 appl Calcium Carbonate/Cholecalciferol (Calcium + Vitamin D 250 Mg Tablet) 250 mg PO BIDWM VERONICA Last Admin: 02/28/25 08:43 Dose: 250 mg Diazepam (Diazepam 5 Mg Tablet) 5 mg PO Q4H PRN PRN Reason: agitation Last Admin: 02/18/25 08:48 Dose: 5 mg Diazepam (Diazepam 10 Mg/2 Ml Cartridge) 5 mg IM TID PRN PRN Reason: refuse Thatcher and Valium Last Admin: 02/27/25 09:00 Dose: 5 mg Diazepam (Diazepam 5 Mg Tablet) 10 mg PO BEDTIME VERONICA Last Admin: 02/27/25 20:23 Dose: 10 mg Diazepam (Diazepam 5 Mg Tablet) 5 mg PO BID@0900,1500 ON LICENSE OF [facility] Last Admin: 02/28/25 08:45 Dose: 5 mg Docusate Sodium (Docusate Sodium 100 Mg Capsule) 100 mg PO BID PRN PRN Reason: Constipation Last Admin: 01/30/25 20:10 Dose: 100 mg Haloperidol Lactate (Haloperidol Lactate 5 Mg/Ml Vial) 5 mg IM TID PRN PRN Reason: refusal of scheduled seroquel Last Admin: 02/04/25 20:14 Dose: 5 mg Hydrocortisone (Hydrocortisone 2.5 % Rectal Cr 30 Gm Tube) 1 appl WV DAILY PRN PRN Reason: hemrroids Last Admin: 01/26/25 14:57 Dose: 1 appl Thatcher Carbonate (Thatcher Carbonate Er 300 Mg Tablet.Er) 300 mg PO BID ON LICENSE OF [facility] Last Admin: 02/28/25 08:45 Dose: 300 mg Magnesium Hydroxide (Milk Of Magnesia 30 Ml Oral.Susp) 30 ml PO DAILY PRN PRN Reason: Constipation Last Admin: 01/26/25 14:59 Dose: 30 ml Multivitamins/Vitamin C (Multivitamin Tablet) 1 tab PO DAILY VERONICA Last Admin: 02/28/25 08:44 Dose: 1 tab Nicotine (Nicotine 7 Mg Patch.Td24) 7 mg TRANSDERMA DAILY PRN PRN Reason: Nicotine craving Nicotine Polacrilex (Nicotine Polacrilex 2 Mg Gum) 4 mg BUCCAL Q2H PRN PRN Reason: Nicotine Cravings Last Admin: 02/21/25 17:26 Dose: 4 mg Polyethylene Glycol (Polyethylene Glycol 3350 17 Gm Powd.Pack) 17 gm PO DAILY PRN PRN Reason: constipation Prazosin HCl (Prazosin Hcl 1 Mg Capsule) 1 mg PO BEDTIME ON LICENSE OF [facility]; Protocol Last Admin: 02/27/25 20:23 Dose: 1 mg Propranolol HCl (Propranolol Hcl 10 Mg Tablet) 10 mg PO TID ON LICENSE OF [facility]; Protocol Last Admin: 02/28/25 08:44 Dose: 10 mg Quetiapine Fumarate (Quetiapine Fumarate 400 Mg Tablet) 400 mg PO BEDTIME ON LICENSE OF [facility] Last Admin: 02/27/25 20:23 Dose: 400 mg Quetiapine Fumarate (Quetiapine Fumarate 25 Mg Tablet) 75 mg PO BID@0900,1500 ON LICENSE OF [facility] Last Admin: 02/28/25 08:44 Dose: 75 mg Allergies Allergies Allergy/AdvReac Type Severity Reaction Status Date / Time amphetamine (From Adderall) Allergy Severe psychosis/ Verified 02/13/25 22:40 Manic dextroamphetamine (From Allergy Severe psychosis/ Verified 02/13/25 22:40 Adderall) Manic olanzapine (From Zyprexa) AdvReac Rash Verified 12/31/24 18:41 Assessment & Plan Assessment & Plan (1) Psychosis: Status: Acute Code(s): F29 - Unspecified psychosis not due to a substance or known physiological condition Plan Ms. Sheridan is a 34 year-old woman who presents with s/s of psychosis, disorganized, some degree of paranoia. She had similar episode back in 2020. 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 I do suspect that there may be underlying psychiatric disorder that is triggered by amphetamine use but not necessarily caused by it. Further evaluation to clarify dx is needed. We discussed inpt level of care. We also discussed restarting risperidone 1mg po BID. low dose clonazepam. continue clonidine. 1. IPLOC 2. start risperidone 1mg po BID. Clonazepam 0.5mg po BID. 01/05: Continue current regimen and plans. 01/06: slept only 2 hours, disorganized, decompensated behaviors. unable to interact cogently. refusing risperidone, will offer seroquel instead. possible bipolar diathesis, T/C mood stabilizer. delirium also a possibility, as the mental status change since admission appears to be striking. 01/07: took seroquel 200 last night, slept 5.5 hours. more organized, linear, able to engage today. continue current mgmt. 01/08: refused seroquel last NOC, slept only 30 minutes. agitated, bizarre, disorganized today. commitment paperwork filed. 01/09: refused meds yesterday but got IMs due to behaviors (outbursts, touching peers, yelling, banging doors, pushed her sitter, climbing on tables and chairs. threatening to stab self with pens). more linear and engageable today, once again the day after having takenm medication. agrees to continue to take seroquel 200 mg QHS. 01/10: took seroquel last NOC and slept 4 hours overnight, but bizarre today. less agitation and intrusiveness than yesterday, but still bizarre and fairly intrusive. pt appears willing to take risperidone, will DC seroquel and return to dosing of risperidone 2 mg BID. took first dose this afternoon. court next monday. 01/11 very paranoid, fearful, taking medications 01/12 continue tx. 01/13: appears a bit more organized today than when not taking medications, although slow and processing poorly. declines to sign CV. commitment hearing tomorrow. 01/14: hearing continued until 01/24 for SINDY. add klonopin 0.5 BID ODT, change risperidone formulation to liquid (pt has been inducing vomiting repeatedly with toothbrush). hold toothbrush unless actively brushing teeth. continues interactive to some extent with MD today, but has been grabbing badges, touching others, and tried to vault into the nursing station in the past 24H. 01/15: IM medication after threatening to punch staff nurse anesthetist with intrusive and aggressive behaviors toward peers. pt did not take klonopin as ordered yesterday. DC klonopin and start VPA 500 BID. per staff, running. tried to make herself vomit after taking PRN. labile. ate her feces in the shower and tried to feed it to her 1:1. crawling under tables. tried to jump into nurses station x2. took her shirt off and swinging it around. did not sleep at all. slept at 7:30am. 01/16: refusing VPA, taking risperidone. napped after IMs yesterday. has been bizarre and labile since. slept only 2 hours overnight. continue current mgmt. 01/17: agitated, bizarre, and aggressive behaviors yesterday (punching and kicking beard, stripping off in milieu, attempting to intimidate staff, grabbing stress balls out of staff's hands). did take VPA this morning on its being offered a second time. more calm today. taking risperidone. 01/18: intermittently refusing VPA, seems to be taking risperidone. asks MD if he is alive, then proposes elbow bump. accusing staff of stealing her things (phone), calling mother and manufacturing production technician in the middle of the night. slept less than 4 hours. 01/19: more lucid today. concerned about risperidone weight gain. agrees to DC risperidone and try prolixin instead, starting at 2.5 BID. 01/20: very disorganized, bizarre, psychotic today. likely due to equivalent dosing of prolixin being given much lower than prior risperidone. as pt seems to be tolerating prolixin without issues, increase prolixin dosing from 2.5 BID to 5 BID. otherwise continue current mgmt. 01/21: less bizarre and disorganized, but still quite ill. variably compliant with medications. c/o leg pain, lowering self to floor; started cogentin 0.5 BID due to concern for dystonia. c/o nightmares, h/o prazosin with good effect. add prazosin 1 mg QHS as of tonight. 01/22: Patients states that she is good. She is scared of [place] herpes after having sex. She refused to participate in an interview with this provider, and walked away stating i don't need a provider. She was observed by this provider, pacing the [place]. Continue current treatment regimen. 01/23: disorganized and dangerous behaviors. voluntarily took IMs. court tomorrow. 01/24: remains disorganized. ran into staff member yesterday, postured and threatened other staff afterward. slept about 6.[address] this afternoon. 01/25/25: Staff 5 6 hours with broken sleep. Compliant with medication with lots of encouragement from yesterday, refused her vitamins in the morning. CT scan was negative, she fell early in the morning, witness her head hit the wall the trying to put her pants on. Slightly improved in mood with medication compliant. VPA level is 52,1 low side. However patient not consistently take it every day. We will recheck. He is on section 8. Pending Wei's order. Less irritable, less racing. 01/26/25: Mostly compliant with medication, to 250/750 mg of Depakote scheduled at bedtime. Labile, restless, poor boundaries, sexually inappropriate behavior, mood is aggravated . Disorganized. Slightly improving but not much. She is better in terms of compliant with medications. 01/27: mostly compliant with meds. improved from last week, more organized and less labile today. agreement reached on medications, reinstate risperidone as primary antipsychotic Tx, remove request for mood stabilizers, remove ativan. DC prolixin, begin taper of VPA, restart risperidone 2 BID, add thorazine 100 and valium 10 at HS to encourage sleep. awaiting med order. 01/28: last evening was pushing, attempting to kick and bite staff, shoulder-checked peer, exposing genitalia to 1:1 staff. took meds last night and this morning. court order received today, reviewed, medications adjusted to comply with order. reportedly more linear today, but pt declined to meet with MD after brief psychotic interaction with MD. 01/29: dysregulated, agitated behaviors continue last night. calmer days. refused VPA this morning. continue VPA taper, decrease from 500 BID to 250 TID as of today. increase HS seroquel from 300 mg to 400 mg as of tonight and HS valium from 10 mg to 15 mg as of tonight for sleep and sylwia. 01/30: same pattern of calm days through mid-afternoon, then decompensation. add third scheduled dosing of risperidone in the middle of the day, schedule valium in the morning and at 3 pm, otherwise continue current mgmt. increase HS seroquel if pt does not sleep more than several hours tonight. continue VPA taper tomorrow. 01/31: calm, morning. severe akathisia eves, unable to sleep or remain still. slept only 2.5 hours. due to 4 mg risperidone daily being inadequate to treat Sx and 6 mg causing severe akathisia, will DC risperidone in favor of a less potent antipsychotic, seroquel. schedule seroquel 100/100/500. taper VPA to 250 BID as of tomorrow. propranolol 20 TID started last night for akathisia, will continue for now. 02/01: no change - monitor akathisia decrease on new regimen 02/02: nicotine patch taper to 7 mg; seems to be doing better with switch to Seroquel and augmentation with Propranolol; primary team may f/u with further discussion of behavioral plan 02/03: much improved from last week. calm, linear, logical, topical. slept 6 hours each the last 3 nights. c/o sedation. decrease daytime valium from 5 BID to 2 BID. decrease daytime seroquel from 100 BID to 75 BID. taper VPA from 250 BID to 250 QHS. 02/04: remains much improved. no overt MSE abnormalities. c/o sedation, decrease seroquel from 75 BID to 50 BID and from 500 QHS to 400 QHS. DC VPA entirely. otherwise continue current mgmt. 02/05: backsliding today. irritable, erratic, more disorganized, labile. stating her intent to stop taking medications, demanding discharge. continue current mgmt. 02/06: much improved today. calm, logical, cogent and topical. pt would like to taper off of valium (addicting) and onto a proper mood stabilizer. ip paralegal notified. DC daytime valium. restart prazosin due to c/o nightmares. decrease propranolol from 20 TID to 10 TID (should no longer be necessary as off of medications likely to cause akathisia). DC daytime seroquel tomorrow. 02/07: similar conversation to yesterday. DC daytime seroquel. awaiting word from legal re adding lithium. otherwise continue current mgmt. 02/08: keeping to self. irritable edge. pt reports feeling overwhelmed d/t room change. medication compliant. focused on returning home. denies SI/HI/VH/AH. per nursing, slept 6 hours last night. continue current tx plan. 02/09: irritable edge. medication compliant. focused on returning home. intrusive during a peer's treatment; declined to walk away when asked by staff multiple times; poor insight and judgment. pt became upset after meeting with her mother; pt stated, my mom says its my behavior why I'm still here. I think they are keeping me here because I locked myself in that room . Valium decreased to 10mg PO bedtime. 02/10: irritable. medication compliant. Perseverative on discharge. Patient reports sleeping well last night. Appears calmer today. She reports visit with her mother when well. Denies SI/HI/VH/AH. Attending groups. Continue current treatment plan. 02/11/25: Irritable, irrational regarding why she is still being here. Poor insight and poor judgment. Not thinks she has bipolar. She only believes she has has ADHD and autism, therefore she does not need to be here and that no reason to keep her here longer. As a future, she does not think she going to continue taking medication after discharge per nursing. Racing thoughts. At times she is calm, able to attend groups, and some what appropriate. Have good visit with brother and mom yesterday. Not able to discuss for medication change due to agitated/irritable mood. 02/12/25: Been sleeping well, no issue with appetite, attended groups, have visit with mom. Both mom and patient the nurse believe that patient is not manic or having any bipolar features. They only believe that she has ADHD and autism. Mom advocate for patient to be discharged. Mom claims that the treatment team has not ever reach out to her. Both of the agree to have a family meeting in the future. We will leave message to the team to set it up. Patient has some mood swing, but overall, continued to improve with help of the medication. She wants to be off from Valium, but do not want any other medication change. Both Seroquel and Valium is on Muniz order. No other safety concerns. 02/13/25: Slept well, compliant with medications, refused nicotine patch on. Observed visible and attending groups, irritable at times, hyper focused on discharge as her normal baseline of everyday. Do not want any medication change. Reports gaining 28 lb since she got here. Nutrition consult placed. We will add Adderall on allergy list which make her psychotic. Patient to nursing put it in her allergy list. Some labile mood, pressured speech. 02/14: continue current tx plan. 02/15/25: Slept well, manage meal intake, portion size, healthier snacks to control her weight gain. Met with the dietitian today. She also ask staff to pronounce the list of healthy/happy food. Family brought in some healthy snack for her. She was mad being wakened up to get vital signs in the morning by nursing staff. Denies suicidal thoughts, denies hallucinations. She asked questions regarding diagnosis. Educate her regarding psychosis that she came with. Explained with her regarding medication she has been taking here, she will be discharged with, and then work with the outpatient psychiatrist to continue with Muniz orders, making any change if necessary. She is more receptive with the plan, more rationale when she is not in the bad mood. She appreciates the time I spent talking to her today. She attended groups, visible. No ADLs issues. Can be irritable at times. Refused her propranolol in the morning. She took multivitamins later on of the day after she refused. Change nicotine patch to p.r.n.. 02/16/25: Reported that she was angry, other than that she feels mood more stable today. Nursing staff contacted this provider reported that patient in the past was allowed using the head phone at night to cancel out the noise. Patient asked if she was allowed to use it again. Patient focused on healthy food, eating yogurt only in the morning. Family brought in more seeds instead of eating unhealthy food from hospital. She also was irritable as someone touching her clothes in the washer. She has a couple visits today. She feels ready to leave and stable enough to go home to community. She is looking forward to talk to her attending this week regarding discharge. Denies other safety concerns. She has been irritable at times, but able to control her anger. She said this is her baseline, and being in here is make her more irritable. Had phones use overnight order was discontinued per policy. 02/17: calm, logical, cooperative. appearing overly controlled, unnatural in doing so. medications plan at our last meeting resurrected - start lithium, taper seroquel and valium. pt states she is open to mood stabilizers. informs pt he believes she lacks capacity presently and will notify music box mechanic to communicate with pt's music box mechanic. hospital music box mechanic notified. continue current mgmt for now. 02/18: corresponding with music box mechanic re stipulated agreement. pt intrusive with peers and resistant to redirection by staff. with pt is calm and cooperative, but attempting to engage in argument justifying her intrusive behavior. continue current mgmt. slept well. 02/19/25: showered in the morning, reasonable, , slept for 6 hours I was up for snack , compliant with meds except Propranonol at 1500 yesterday. She asked if she can use electric razor to trim the pubic hair which was not allowed per safety and unit policy. Continue working healthy diet and snack. 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 No major behavior issues. Sometimes ask for stuff she knows they are not allowed. Continue with the plan. 02/20: refused seroquel last night, did not receive IM back-up. appears with bizarre smile today, believes she doesn't need medications and is ready to discharge. 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 plan for lithium in lieu of valium and seroquel, ideally, reviewed. pt appears to have very poor retention, as this plan has been discussed numerous times. pt was encouraged to discuss with her music box mechanic and was given her music box mechanic's contact information ([facility] number). 02/21: talking about not taking meds once discharged. refusing meds then taking them last second prior to IM administration. labile, irritable. very disorganized today, severely impaired cognitive performance. restart valium 5 and seroquel 75 BID at 0900, 1500. otherwise continue current mgmt. awaiting word from feed blender re stipulated agreement for mood stabilizers. 02/22: Continue current regimen and plans. Orajel ordered. 02/23: Continue current plans and regimen 02/24: more organized and less oppositional, labile, intrusive, impulsive than monday. willing to take lithium. per music box mechanic, we may have a stipulated agreement. continue current mgmt for now, hoping to start lithium GIRISH. 02/25/25: Amend the treatment plan to include mood stabilizer Thatcher Carbonate as primary treatment at therapeutic blood levels. Organized at times but when she is more anxious, less rationale. She does not accept new add on Thatcher on Wei's order that is effective today it is fake, you can keep it. I need to talk to my manufacturing production technician . why I need Thatcher?I do not have bipolar . She believes she has autism and ADHD only. She asked inappropriate question such as if this provider knowing what JERSON and if this provider used it before. Patient asked to get her OP therapist to involve in decision making on meds. Prior to this conversation, she was calm, showing pictures of herself and family members that she has personal space for them on the wall. Some labile mood, underline irritable but no angry outburst. At some point, she states that Seroquel added on during daytime is helping with her mood and that I was not mad when she was waken up this morning. Denies SI/SIB/HI/AVH Thatcher ER 600mg daily at HS for mood. With some labs ordered for lolita CMP, TSH, Free T4. 02/26/25 Slept for 8 hours, compliant with medications except lithium. Rumination, poor insight and judgment, asking inappropriate questions, thought processes not on treatment, racing, anxious, appears to be paranoid. The RN showed the new amended Wei order, she does not believe it is true and wanted fire her music box mechanic. [facility] notified, met with patient. Continued to she is not bipolar, believes she has PTSD symptoms that causing her mood changes. Want this to talk to her outpatient therapist. We will arrange to make phone call for collateral. Change [facility] ER from 600mg at HS to BID with IM of 5mg Valium IM back up if refuse. 02/27/25: Slept for 8 hours, compliant with medications, except for lithium-received Valium IM backup. Continued to resist to mood stabilizer, poor judgment, poor insight, do not believe she has bipolar. Nursing staff reports she was rude, inappropriate with staff, asking inappropriate questions. Racing thoughts. Request information regarding lithium. Nursing staff pronounced the handout, she has not in hand. Side effects noted. We will contact Josy Franklin- [facility] therapist at [phone] per patient request as she believes that her therapist should be involved in the decision making regarding diagnosis. 02/28/25: Continued to improve in sleep. Medication compliant, except for lithium yesterday morning. She took the evening dose per nursing report. Nurse's also provide patient with information related to lithium. Patient request the current [facility] order. Given a copy. She finally wants to keep it as she has been referred to review. She requests take her off from Seroquel if this provider wants her to text lithium which is unreasonable as she requests to take her off of them. Not able to rationale with her about the medication plan. Slightly having some open and accepting lithium. At home she will compliant do well with the lithium. In the future when she got into therapeutic level targeting labile mood, we can taper down on Seroquel or taper down on Valium. At this current time, due to current mental status, she can not process the information, not register in her mind for medication plans at this time. She does not trust the provider, she does not believe she has bipolar which is hard to convince her to take lithium. Labile mood, irritable and can be rude. Monitor over weakens for That[facility] and other medication compliant. IM back up available per [facility]' order. Attempted to call Josy Franklin- [facility] therapist at [phone]. Left voices message with lead front end developer. Waiting for a call back. Patient educated on: medication risk/benefits and therapeutic strategies Informed Consent: further education needed Reason for continued inpatient stay Substantial Risk for: med/psych decompensation Time Spent With Patient Time: Total time managing care of this patient today ____ minutes.
[2025-02-28 14:59] VITALS: BP 118/59; PULSE 91
[2025-02-28 20:00] VITALS: RESP 18
[2025-02-28 21:01] VITALS: BP 115/73; PULSE 92
[2025-03-01 09:00] VITALS: BP 132/68; PULSE 89; RESP 14; TEMP 36.7; O2SAT 100
[2025-03-01] MEDS: Calcium + Vitamin D 250 MG TABLET PO ×2 (09:01→16:59)
[2025-03-01 15:10] VITALS: BP 138/65; PULSE 100
--- NOTE | 2025-03-01 16:46 | HO.PSYCHPN ---
Subjective Subjective Date of Service: 03/01/25 Reason For Visit: Crisis Interim History: calm, organized. asking about tapering off of valium and seroquel. MD agre to decrease dosing of both, as pt has been taking lithium and is improved from last meeting. per staff, denies anx/dep. irritable affect. taking lithium the past 2 days. slept 8 hours. Mental Status Exam Mental Status Exam Narrative: Appearance: adequately dressed and groomed Behavior: no PMA/PMR. Speech: nml amount, nml loudness. nml latency. TP: organized, linear TC: on what needs to happen before she can leave the hospital Mood: not assessed Affect: calm, constricted AH/VH: none expressed Insight/judgment: impaired Memory/cog: alert, impaired. Diagnostics Vital Signs (24Hr): Vital Signs - 24 hr 02/28/25 20:00 02/28/25 21:01 03/01/25 09:00 Temperature 98.0 F Pulse Rate 92 89 Respiratory Rate 18 14 Blood Pressure 115/73 132/68 Pulse Oximetry 100 Oxygen Delivery Method Room Air 03/01/25 15:10 Temperature Pulse Rate 100 Respiratory Rate Blood Pressure 138/65 Pulse Oximetry Oxygen Delivery Method BMI result Body Mass Index 24.6 Labs 01/09/25 16:36 02/26/25 08:32 Imaging Radiology Impressions: ITS Impressions Hand X-Ray 01/16/25 11:30 IMPRESSION: Unremarkable right hand Electronically signed by: Casa Rush MD 01/16/2025 11:46 AM EDT RP Hand X-Ray 01/29/25 07:30 IMPRESSION: Unremarkable examination of the right hand. Electronically signed by: Obdulio Tolbert MD 01/30/2025 07:56 AM EDT RP Medications Medications Current Medications Acetaminophen (Acetaminophen 325 Mg Tablet) 650 mg PO Q6H PRN PRN Reason: Headache/Pain, Scale 1-10 Last Admin: 02/28/25 03:51 Dose: 650 mg Al Hydroxide/Mg Hydroxide (Magnesium Hydrox/Alum Hydrox 30 Ml Oral.Susp) 30 ml PO Q6H PRN PRN Reason: Heartburn/Nausea Last Admin: 01/30/25 14:06 Dose: 30 ml Artificial Tears (Artificial Tears 15 Ml Drops) 2 drop EYE-BOTH Q4H PRN PRN Reason: Dry Eyes Last Admin: 02/06/25 09:24 Dose: 2 drop Benzocaine (Benzocaine 20 % Oral Gel 14 Gm Tube) 1 appl MUCOUS MEM QID PRN; Protocol PRN Reason: Pain, Mild 1-3,fever,headache Last Admin: 02/28/25 03:51 Dose: 1 appl Calcium Carbonate/Cholecalciferol (Calcium + Vitamin D 250 Mg Tablet) 250 mg PO BIDWM ON LICENSE OF [facility] Last Admin: 03/01/25 09:01 Dose: 250 mg Diazepam (Diazepam 5 Mg Tablet) 5 mg PO Q4H PRN PRN Reason: agitation Last Admin: 02/18/25 08:48 Dose: 5 mg Diazepam (Diazepam 10 Mg/2 Ml Cartridge) 5 mg IM TID PRN PRN Reason: refuse Chugcreek and Valium Last Admin: 02/27/25 09:00 Dose: 5 mg Diazepam (Diazepam 5 Mg Tablet) 10 mg PO BEDTIME ON LICENSE OF [facility] Last Admin: 02/28/25 21:02 Dose: 10 mg Diazepam (Diazepam 2 Mg Tablet) 4 mg PO BID@0900,1500 ON LICENSE OF [facility] Last Admin: 03/01/25 15:10 Dose: 4 mg Docusate Sodium (Docusate Sodium 100 Mg Capsule) 100 mg PO BID PRN PRN Reason: Constipation Last Admin: 01/30/25 20:10 Dose: 100 mg Haloperidol Lactate (Haloperidol Lactate 5 Mg/Ml Vial) 5 mg IM TID PRN PRN Reason: refusal of scheduled seroquel Last Admin: 02/04/25 20:14 Dose: 5 mg Hydrocortisone (Hydrocortisone 2.5 % Rectal Cr 30 Gm Tube) 1 appl TX DAILY PRN PRN Reason: hemrroids Last Admin: 01/26/25 14:57 Dose: 1 appl Chugcreek Carbonate (Chugcreek Carbonate Er 300 Mg Tablet.Er) 300 mg PO BID ON LICENSE OF [facility] Last Admin: 03/01/25 09:01 Dose: 300 mg Magnesium Hydroxide (Milk Of Magnesia 30 Ml Oral.Susp) 30 ml PO DAILY PRN PRN Reason: Constipation Last Admin: 01/26/25 14:59 Dose: 30 ml Multivitamins/Vitamin C (Multivitamin Tablet) 1 tab PO DAILY ON LICENSE OF [facility] Last Admin: 03/01/25 09:02 Dose: 1 tab Nicotine (Nicotine 7 Mg Patch.Td24) 7 mg TRANSDERMA DAILY PRN PRN Reason: Nicotine craving Nicotine Polacrilex (Nicotine Polacrilex 2 Mg Gum) 4 mg BUCCAL Q2H PRN PRN Reason: Nicotine Cravings Last Admin: 02/21/25 17:26 Dose: 4 mg Polyethylene Glycol (Polyethylene Glycol 3350 17 Gm Powd.Pack) 17 gm PO DAILY PRN PRN Reason: constipation Prazosin HCl (Prazosin Hcl 1 Mg Capsule) 1 mg PO BEDTIME VERONICA; Protocol Last Admin: 02/28/25 21:01 Dose: 1 mg Propranolol HCl (Propranolol Hcl 10 Mg Tablet) 10 mg PO TID VERONICA; Protocol Last Admin: 03/01/25 15:10 Dose: 10 mg Quetiapine Fumarate (Quetiapine Fumarate 50 Mg Tablet) 50 mg PO BID@0900,1500 VERONICA Last Admin: 03/01/25 15:10 Dose: 50 mg Quetiapine Fumarate (Quetiapine Fumarate 300 Mg Tablet) 300 mg PO BEDTIME VERONICA Allergies Allergies Allergy/AdvReac Type Severity Reaction Status Date / Time amphetamine (From Adderall) Allergy Severe psychosis/ Verified 02/13/25 22:40 Manic dextroamphetamine (From Allergy Severe psychosis/ Verified 02/13/25 22:40 Adderall) Manic olanzapine (From Zyprexa) AdvReac Rash Verified 12/31/24 18:41 Assessment & Plan Assessment & Plan (1) Psychosis: Status: Acute Code(s): F29 - Unspecified psychosis not due to a substance or known physiological condition Plan Ms. Sheridan is a 34 year-old woman who presents with s/s of psychosis, disorganized, some degree of paranoia. She had similar episode back in 2020. 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 I do suspect that there may be underlying psychiatric disorder that is triggered by amphetamine use but not necessarily caused by it. Further evaluation to clarify dx is needed. We discussed inpt level of care. We also discussed restarting risperidone 1mg po BID. low dose clonazepam. continue clonidine. 1. IPLOC 2. start risperidone 1mg po BID. Clonazepam 0.5mg po BID. 01/05: Continue current regimen and plans. 01/06: slept only 2 hours, disorganized, decompensated behaviors. unable to interact cogently. refusing risperidone, will offer seroquel instead. possible bipolar diathesis, T/C mood stabilizer. delirium also a possibility, as the mental status change since admission appears to be striking. 01/07: took seroquel 200 last night, slept 5.5 hours. more organized, linear, able to engage today. continue current mgmt. 01/08: refused seroquel last NOC, slept only 30 minutes. agitated, bizarre, disorganized today. commitment paperwork filed. 01/09: refused meds yesterday but got IMs due to behaviors (outbursts, touching peers, yelling, banging doors, pushed her sitter, climbing on tables and chairs. threatening to stab self with pens). more linear and engageable today, once again the day after having takenm medication. agrees to continue to take seroquel 200 mg QHS. 01/10: took seroquel last NOC and slept 4 hours overnight, but bizarre today. less agitation and intrusiveness than yesterday, but still bizarre and fairly intrusive. pt appears willing to take risperidone, will DC seroquel and return to dosing of risperidone 2 mg BID. took first dose this afternoon. court next monday. 01/11 very paranoid, fearful, taking medications 01/12 continue tx. 01/13: appears a bit more organized today than when not taking medications, although slow and processing poorly. declines to sign CV. commitment hearing tomorrow. 01/14: hearing continued until 01/24 for SINDY. add klonopin 0.5 BID ODT, change risperidone formulation to liquid (pt has been inducing vomiting repeatedly with toothbrush). hold toothbrush unless actively brushing teeth. continues interactive to some extent with MD today, but has been grabbing badges, touching others, and tried to vault into the nursing station in the past 24H. 01/15: IM medication after threatening to punch staff engineer with intrusive and aggressive behaviors toward peers. pt did not take klonopin as ordered yesterday. DC klonopin and start VPA 500 BID. per staff, running. tried to make herself vomit after taking PRN. labile. ate her feces in the shower and tried to feed it to her 1:1. crawling under tables. tried to jump into nurses station x2. took her shirt off and swinging it around. did not sleep at all. slept at 7:30am. 01/16: refusing VPA, taking risperidone. napped after IMs yesterday. has been bizarre and labile since. slept only 2 hours overnight. continue current mgmt. 01/17: agitated, bizarre, and aggressive behaviors yesterday (punching and kicking beard, stripping off in milieu, attempting to intimidate staff, grabbing stress balls out of staff's hands). did take VPA this morning on its being offered a second time. more calm today. taking risperidone. 01/18: intermittently refusing VPA, seems to be taking risperidone. asks MD if he is alive, then proposes elbow bump. accusing staff of stealing her things (phone), calling mother and patient access manager in the middle of the night. slept less than 4 hours. 01/19: more lucid today. concerned about risperidone weight gain. agrees to DC risperidone and try prolixin instead, starting at 2.5 BID. 01/20: very disorganized, bizarre, psychotic today. likely due to equivalent dosing of prolixin being given much lower than prior risperidone. as pt seems to be tolerating prolixin without issues, increase prolixin dosing from 2.5 BID to 5 BID. otherwise continue current mgmt. 01/21: less bizarre and disorganized, but still quite ill. variably compliant with medications. c/o leg pain, lowering self to floor; started cogentin 0.5 BID due to concern for dystonia. c/o nightmares, h/o prazosin with good effect. add prazosin 1 mg QHS as of tonight. 01/22: Patients states that she is good. She is scared of [place] herpes after having sex. She refused to participate in an interview with this provider, and walked away stating i don't need a provider. She was observed by this provider, pacing the [place]. Continue current treatment regimen. 01/23: disorganized and dangerous behaviors. voluntarily took IMs. court tomorrow. 01/24: remains disorganized. ran into staff member yesterday, postured and threatened other staff afterward. slept about 6.[address] afternoon. 01/25/25: Staff 5 6 hours with broken sleep. Compliant with medication with lots of encouragement from yesterday, refused her vitamins in the morning. CT scan was negative, she fell early in the morning, witness her head hit the wall the trying to put her pants on. Slightly improved in mood with medication compliant. VPA level is 52,1 low side. However patient not consistently take it every day. We will recheck. He is on section 8. Pending Wei's order. Less irritable, less racing. 01/26/25: Mostly compliant with medication, to 250/750 mg of Depakote scheduled at bedtime. Labile, restless, poor boundaries, sexually inappropriate behavior, mood is aggravated . Disorganized. Slightly improving but not much. She is better in terms of compliant with medications. 01/27: mostly compliant with meds. improved from last week, more organized and less labile today. agreement reached on medications, reinstate risperidone as primary antipsychotic Tx, remove request for mood stabilizers, remove ativan. DC prolixin, begin taper of VPA, restart risperidone 2 BID, add thorazine 100 and valium 10 at HS to encourage sleep. awaiting med order. 01/28: last evening was pushing, attempting to kick and bite staff, shoulder-checked peer, exposing genitalia to 1:1 staff. took meds last night and this morning. court order received today, reviewed, medications adjusted to comply with order. reportedly more linear today, but pt declined to meet with MD after brief psychotic interaction with MD. 01/29: dysregulated, agitated behaviors continue last night. calmer days. refused VPA this morning. continue VPA taper, decrease from 500 BID to 250 TID as of today. increase HS seroquel from 300 mg to 400 mg as of tonight and HS valium from 10 mg to 15 mg as of tonight for sleep and sylwia. 01/30: same pattern of calm days through mid-afternoon, then decompensation. add third scheduled dosing of risperidone in the middle of the day, schedule valium in the morning and at 3 pm, otherwise continue current mgmt. increase HS seroquel if pt does not sleep more than several hours tonight. continue VPA taper tomorrow. 01/31: calm, morning. severe akathisia eves, unable to sleep or remain still. slept only 2.5 hours. due to 4 mg risperidone daily being inadequate to treat Sx and 6 mg causing severe akathisia, will DC risperidone in favor of a less potent antipsychotic, seroquel. schedule seroquel 100/100/500. taper VPA to 250 BID as of tomorrow. propranolol 20 TID started last night for akathisia, will continue for now. 02/01: no change - monitor akathisia decrease on new regimen 02/02: nicotine patch taper to 7 mg; seems to be doing better with switch to Seroquel and augmentation with Propranolol; primary team may f/u with further discussion of behavioral plan 02/03: much improved from last week. calm, linear, logical, topical. slept 6 hours each the last 3 nights. c/o sedation. decrease daytime valium from 5 BID to 2 BID. decrease daytime seroquel from 100 BID to 75 BID. taper VPA from 250 BID to 250 QHS. 02/04: remains much improved. no overt MSE abnormalities. c/o sedation, decrease seroquel from 75 BID to 50 BID and from 500 QHS to 400 QHS. DC VPA entirely. otherwise continue current mgmt. 02/05: backsliding today. irritable, erratic, more disorganized, labile. stating her intent to stop taking medications, demanding discharge. continue current mgmt. 02/06: much improved today. calm, logical, cogent and topical. pt would like to taper off of valium (addicting) and onto a proper mood stabilizer. real estate legal secretary notified. DC daytime valium. restart prazosin due to c/o nightmares. decrease propranolol from 20 TID to 10 TID (should no longer be necessary as off of medications likely to cause akathisia). DC daytime seroquel tomorrow. 02/07: similar conversation to yesterday. DC daytime seroquel. awaiting word from legal re adding lithium. otherwise continue current mgmt. 02/08: keeping to self. irritable edge. pt reports feeling overwhelmed d/t room change. medication compliant. focused on returning home. denies SI/HI/VH/AH. per nursing, slept 6 hours last night. continue current tx plan. 02/09: irritable edge. medication compliant. focused on returning home. intrusive during a peer's treatment; declined to walk away when asked by staff multiple times; poor insight and judgment. pt became upset after meeting with her mother; pt stated, my mom says its my behavior why I'm still here. I think they are keeping me here because I locked myself in that room . Valium decreased to 10mg PO bedtime. 02/10: irritable. medication compliant. Perseverative on discharge. Patient reports sleeping well last night. Appears calmer today. She reports visit with her mother when well. Denies SI/HI/VH/AH. Attending groups. Continue current treatment plan. 02/11/25: Irritable, irrational regarding why she is still being here. Poor insight and poor judgment. Not thinks she has bipolar. She only believes she has has ADHD and autism, therefore she does not need to be here and that no reason to keep her here longer. As a future, she does not think she going to continue taking medication after discharge per nursing. Racing thoughts. At times she is calm, able to attend groups, and some what appropriate. Have good visit with brother and mom yesterday. Not able to discuss for medication change due to agitated/irritable mood. 02/12/25: Been sleeping well, no issue with appetite, attended groups, have visit with mom. Both mom and patient the nurse believe that patient is not manic or having any bipolar features. They only believe that she has ADHD and autism. Mom advocate for patient to be discharged. Mom claims that the treatment team has not ever reach out to her. Both of the agree to have a family meeting in the future. We will leave message to the team to set it up. Patient has some mood swing, but overall, continued to improve with help of the medication. She wants to be off from Valium, but do not want any other medication change. Both Seroquel and Valium is on [facility] order. No other safety concerns. 02/13/25: Slept well, compliant with medications, refused nicotine patch on. Observed visible and attending groups, irritable at times, hyper focused on discharge as her normal baseline of everyday. Do not want any medication change. Reports gaining 28 lb since she got here. Nutrition consult placed. We will add Adderall on allergy list which make her psychotic. Patient to nursing put it in her allergy list. Some labile mood, pressured speech. 02/14: continue current tx plan. 02/15/25: Slept well, manage meal intake, portion size, healthier snacks to control her weight gain. Met with the dietitian today. She also ask staff to pronounce the list of healthy/happy food. Family brought in some healthy snack for her. She was mad being wakened up to get vital signs in the morning by nursing staff. Denies suicidal thoughts, denies hallucinations. She asked questions regarding diagnosis. Educate her regarding psychosis that she came with. Explained with her regarding medication she has been taking here, she will be discharged with, and then work with the outpatient psychiatrist to continue with [facility] orders, making any change if necessary. She is more receptive with the plan, more rationale when she is not in the bad mood. She appreciates the time I spent talking to her today. She attended groups, visible. No ADLs issues. Can be irritable at times. Refused her propranolol in the morning. She took multivitamins later on of the day after she refused. Change nicotine patch to p.r.n.. 02/16/25: Reported that she was angry, other than that she feels mood more stable today. Nursing staff contacted this provider reported that patient in the past was allowed using the head phone at night to cancel out the noise. Patient asked if she was allowed to use it again. Patient focused on healthy food, eating yogurt only in the morning. Family brought in more seeds instead of eating unhealthy food from hospital. She also was irritable as someone touching her clothes in the washer. She has a couple visits today. She feels ready to leave and stable enough to go home to community. She is looking forward to talk to her attending this week regarding discharge. Denies other safety concerns. She has been irritable at times, but able to control her anger. She said this is her baseline, and being in here is make her more irritable. Had phones use overnight order was discontinued per policy. 02/17: calm, logical, cooperative. appearing overly controlled, unnatural in doing so. medications plan at our last meeting resurrected - start lithium, taper seroquel and valium. pt states she is open to mood stabilizers. MD informs pt he believes she lacks capacity presently and will notify energy risk management analyst to communicate with pt's energy risk management analyst. hospital energy risk management analyst notified. continue current mgmt for now. 02/18: corresponding with energy risk management analyst re stipulated agreement. pt intrusive with peers and resistant to redirection by staff. with MD pt is calm and cooperative, but attempting to engage in argument justifying her intrusive behavior. continue current mgmt. slept well. 02/19/25: showered in the morning, reasonable, , slept for 6 hours I was up for snack , compliant with meds except Propranonol at 1500 yesterday. She asked if she can use electric razor to trim the pubic hair which was not allowed per safety and unit policy. Continue working healthy diet and snack. 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 No major behavior issues. Sometimes ask for stuff she knows they are not allowed. Continue with the plan. 02/20: refused seroquel last night, did not receive IM back-up. appears with bizarre smile today, believes she doesn't need medications and is ready to discharge. 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 plan for lithium in lieu of valium and seroquel, ideally, reviewed. pt appears to have very poor retention, as this plan has been discussed numerous times. pt was encouraged to discuss with her energy risk management analyst and was given her energy risk management analyst's contact information ([facility] number). 02/21: talking about not taking meds once discharged. refusing meds then taking them last second prior to IM administration. labile, irritable. very disorganized today, severely impaired cognitive performance. restart valium 5 and seroquel 75 BID at 0900, 1500. otherwise continue current mgmt. awaiting word from manager stars re stipulated agreement for mood stabilizers. 02/22: Continue current regimen and plans. Orajel ordered. 02/23: Continue current plans and regimen 02/24: more organized and less oppositional, labile, intrusive, impulsive than monday. willing to take lithium. per energy risk management analyst, we may have a stipulated agreement. continue current mgmt for now, hoping to start lithium GIRISH. 02/25/25: Amend the treatment plan to include mood stabilizer Chugcreek Carbonate as primary treatment at therapeutic blood levels. Organized at times but when she is more anxious, less rationale. She does not accept new add on Chugcreek on Wei's order that is effective today it is fake, you can keep it. I need to talk to my patient access manager . why I need Chugcreek?I do not have bipolar . She believes she has autism and ADHD only. She asked inappropriate question such as if this provider knowing what JERSON and if this provider used it before. Patient asked to get her OP therapist to involve in decision making on meds. Prior to this conversation, she was calm, showing pictures of herself and family members that she has personal space for them on the wall. Some labile mood, underline irritable but no angry outburst. At some point, she states that Seroquel added on during daytime is helping with her mood and that I was not mad when she was waken up this morning. Denies SI/SIB/HI/AVH Chugcreek ER 600mg daily at HS for mood. With some labs ordered for lolita CMP, TSH, Free T4. 02/26/25 Slept for 8 hours, compliant with medications except lithium. Rumination, poor insight and judgment, asking inappropriate questions, thought processes not on treatment, racing, anxious, appears to be paranoid. The RN showed the new amended Wei order, she does not believe it is true and wanted fire her energy risk management analyst. HRO notified, met with patient. Continued to she is not bipolar, believes she has PTSD symptoms that causing her mood changes. Want this to talk to her outpatient therapist. We will arrange to make phone call for collateral. Change Chugcreek ER from 600mg at HS to BID with IM of 5mg Valium IM back up if refuse. 02/27/25: Slept for 8 hours, compliant with medications, except for lithium-received Valium IM backup. Continued to resist to mood stabilizer, poor judgment, poor insight, do not believe she has bipolar. Nursing staff reports she was rude, inappropriate with staff, asking inappropriate questions. Racing thoughts. Request information regarding lithium. Nursing staff pronounced the handout, she has not in hand. Side effects noted. We will contact Josy Franklin- OP therapist at [phone] per patient request as she believes that her therapist should be involved in the decision making regarding diagnosis. 02/28/25: Continued to improve in sleep. Medication compliant, except for lithium yesterday morning. She took the evening dose per nursing report. Nurse's also provide patient with information related to lithium. Patient request the current [facility] order. Given a copy. She finally wants to keep it as she has been referred to review. She requests take her off from Seroquel if this provider wants her to text lithium which is unreasonable as she requests to take her off of them. Not able to rationale with her about the medication plan. Slightly having some open and accepting lithium. At home she will compliant do well with the lithium. In the future when she got into therapeutic level targeting labile mood, we can taper down on Seroquel or taper down on Valium. At this current time, due to current mental status, she can not process the information, not register in her mind for medication plans at this time. She does not trust the provider, she does not believe she has bipolar which is hard to convince her to take lithium. Labile mood, irritable and can be rude. Monitor over weakens for [place] and other medication compliant. IM back up available per Flavio' order. Attempted to call Josy Franklin- [facility] therapist at [phone]. 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 Waiting for a call back. 03/01: calm, cooperative, logical. still processing difficulties, but improved from last time we met. taking lithium for 2 days now, slept 8 hours overnight. decrease seroquel 75/75/400 to 50/50/300 and valium 5 BID to 4 BID. otherwise continue current mgmt. Reason for continued inpatient stay Substantial Risk for: inability to function and rapid decompensation Time Spent With Patient Time: Total time managing care of this patient today __25__ minutes.
[2025-03-01 19:30] VITALS: BP 107/61; PULSE 95; RESP 17; TEMP 36.9; O2SAT 96
[2025-03-02] MEDS: Benzocaine 20 % Oral Gel 14 GM TUBE 1 APPL MUCOUS MEM (07:06)
[2025-03-02 08:00] VITALS: BP 140/77; PULSE 112; RESP 16; TEMP 36.8; O2SAT 97
[2025-03-02] MEDS: Calcium + Vitamin D 250 MG TABLET PO ×2 (09:06→17:13)
[2025-03-02 15:26] VITALS: BP 128/73; PULSE 72
--- NOTE | 2025-03-02 16:04 | P.PNPSI_ITS ---
Subjective Subjective Date of Service: 03/02/25 Reason For Visit: Crisis Interim History: declined interview with MD in favor of telephone call. per staff, taking lithium. perseverative re meds and that we are trying to change her personality. Mental Status Exam Mental Status Exam Narrative: Appearance: adequately dressed and groomed Behavior: no PMA/PMR. Speech: nml amount, nml loudness. nml latency. TP: organized, linear TC: declining interview Mood: not assessed Affect: calm, constricted AH/VH: none expressed Insight/judgment: impaired Memory/cog: alert, impaired. Diagnostics Vital Signs (24Hr): Vital Signs - 24 hr 03/01/25 19:30 03/02/25 08:00 03/02/25 15:26 Temperature 98.5 F 98.2 F Pulse Rate 95 112 H 72 Respiratory Rate 17 16 Blood Pressure 107/61 140/77 H 128/73 Pulse Oximetry 96 97 Oxygen Delivery Method Room Air Room Air BMI result Body Mass Index 24.6 Labs 01/09/25 16:36 02/26/25 08:32 Imaging Radiology Impressions: ITS Impressions Hand X-Ray 01/16/25 11:30 IMPRESSION: Unremarkable right hand Electronically signed by: Casa Rush MD 01/16/2025 11:46 AM EDT RP Hand X-Ray 01/29/25 07:30 IMPRESSION: Unremarkable examination of the right hand. Electronically signed by: Obdulio Tolbert MD 01/30/2025 07:56 AM EDT RP Medications Medications Current Medications Acetaminophen (Acetaminophen 325 Mg Tablet) 650 mg PO Q6H PRN PRN Reason: Headache/Pain, Scale 1-10 Last Admin: 03/02/25 07:06 Dose: 650 mg Al Hydroxide/Mg Hydroxide (Magnesium Hydrox/Alum Hydrox 30 Ml Oral.Susp) 30 ml PO Q6H PRN PRN Reason: Heartburn/Nausea Last Admin: 01/30/25 14:06 Dose: 30 ml Artificial Tears (Artificial Tears 15 Ml Drops) 2 drop EYE-BOTH Q4H PRN PRN Reason: Dry Eyes Last Admin: 02/06/25 09:24 Dose: 2 drop Benzocaine (Benzocaine 20 % Oral Gel 14 Gm Tube) 1 appl MUCOUS MEM QID PRN; Protocol PRN Reason: Pain, Mild 1-3,fever,headache Last Admin: 03/02/25 07:06 Dose: 1 appl Calcium Carbonate/Cholecalciferol (Calcium + Vitamin D 250 Mg Tablet) 250 mg PO BIDWM [facility] Last Admin: 03/02/25 09:06 Dose: 250 mg Diazepam (Diazepam 5 Mg Tablet) 5 mg PO Q4H PRN PRN Reason: agitation Last Admin: 02/18/25 08:48 Dose: 5 mg Diazepam (Diazepam 10 Mg/2 Ml Cartridge) 5 mg IM TID PRN PRN Reason: refuse Mcfarlan and Valium Last Admin: 02/27/25 09:00 Dose: 5 mg Diazepam (Diazepam 5 Mg Tablet) 10 mg PO BEDTIME [facility] Last Admin: 03/01/25 20:29 Dose: 10 mg Diazepam (Diazepam 2 Mg Tablet) 4 mg PO BID@0900,1500 [facility] Last Admin: 03/02/25 15:26 Dose: 4 mg Docusate Sodium (Docusate Sodium 100 Mg Capsule) 100 mg PO BID PRN PRN Reason: Constipation Last Admin: 01/30/25 20:10 Dose: 100 mg Haloperidol Lactate (Haloperidol Lactate 5 Mg/Ml Vial) 5 mg IM TID PRN PRN Reason: refusal of scheduled seroquel Last Admin: 02/04/25 20:14 Dose: 5 mg Hydrocortisone (Hydrocortisone 2.5 % Rectal Cr 30 Gm Tube) 1 appl HI DAILY PRN PRN Reason: hemrroids Last Admin: 01/26/25 14:57 Dose: 1 appl Mcfarlan Carbonate (Mcfarlan Carbonate Er 300 Mg Tablet.Er) 300 mg PO BID [facility] Last Admin: 03/02/25 09:06 Dose: 300 mg Magnesium Hydroxide (Milk Of Magnesia 30 Ml Oral.Susp) 30 ml PO DAILY PRN PRN Reason: Constipation Last Admin: 01/26/25 14:59 Dose: 30 ml Multivitamins/Vitamin C (Multivitamin Tablet) 1 tab PO DAILY [facility] Last Admin: 03/02/25 09:06 Dose: 1 tab Nicotine (Nicotine 7 Mg Patch.Td24) 7 mg TRANSDERMA DAILY PRN PRN Reason: Nicotine craving Nicotine Polacrilex (Nicotine Polacrilex 2 Mg Gum) 4 mg BUCCAL Q2H PRN PRN Reason: Nicotine Cravings Last Admin: 02/21/25 17:26 Dose: 4 mg Polyethylene Glycol (Polyethylene Glycol 3350 17 Gm Powd.Pack) 17 gm PO DAILY PRN PRN Reason: constipation Prazosin HCl (Prazosin Hcl 1 Mg Capsule) 1 mg PO BEDTIME [facility]; Protocol Last Admin: 03/01/25 20:28 Dose: 1 mg Propranolol HCl (Propranolol Hcl 10 Mg Tablet) 10 mg PO TID VERONICA; Protocol Last Admin: 03/02/25 15:26 Dose: 10 mg Quetiapine Fumarate (Quetiapine Fumarate 50 Mg Tablet) 50 mg PO BID@0900,1500 [facility] Last Admin: 03/02/25 15:00 Dose: 50 mg Quetiapine Fumarate (Quetiapine Fumarate 300 Mg Tablet) 300 mg PO BEDTIME [facility] Last Admin: 03/01/25 20:29 Dose: 300 mg Allergies Allergies Allergy/AdvReac Type Severity Reaction Status Date / Time amphetamine (From Adderall) Allergy Severe psychosis/ Verified 02/13/25 22:40 Manic dextroamphetamine (From Allergy Severe psychosis/ Verified 02/13/25 22:40 Adderall) Manic olanzapine (From Zyprexa) AdvReac Rash Verified 12/31/24 18:41 Assessment & Plan Assessment & Plan (1) Psychosis: Status: Acute Code(s): F29 - Unspecified psychosis not due to a substance or known physiological condition Plan Ms. Sheridan is a 34 year-old woman who presents with s/s of psychosis, disorganized, some degree of paranoia. She had similar episode back in 2020. 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 I do suspect that there may be underlying psychiatric disorder that is triggered by amphetamine use but not necessarily caused by it. Further evaluation to clarify dx is needed. We discussed inpt level of care. We also discussed restarting risperidone 1mg po BID. low dose clonazepam. continue clonidine. 1. IPLOC 2. start risperidone 1mg po BID. Clonazepam 0.5mg po BID. 01/05: Continue current regimen and plans. 01/06: slept only 2 hours, disorganized, decompensated behaviors. unable to interact cogently. refusing risperidone, will offer seroquel instead. possible bipolar diathesis, T/C mood stabilizer. delirium also a possibility, as the mental status change since admission appears to be striking. 01/07: took seroquel 200 last night, slept 5.5 hours. more organized, linear, able to engage today. continue current mgmt. 01/08: refused seroquel last NOC, slept only 30 minutes. agitated, bizarre, disorganized today. commitment paperwork filed. 01/09: refused meds yesterday but got IMs due to behaviors (outbursts, touching peers, yelling, banging doors, pushed her sitter, climbing on tables and chairs. threatening to stab self with pens). more linear and engageable today, once again the day after having takenm medication. agrees to continue to take seroquel 200 mg QHS. 01/10: took seroquel last NOC and slept 4 hours overnight, but bizarre today. less agitation and intrusiveness than yesterday, but still bizarre and fairly intrusive. pt appears willing to take risperidone, will DC seroquel and return to dosing of risperidone 2 mg BID. took first dose this afternoon. court next monday. 01/11 very paranoid, fearful, taking medications 01/12 continue tx. 01/13: appears a bit more organized today than when not taking medications, although slow and processing poorly. declines to sign CV. commitment hearing tomorrow. 01/14: hearing continued until 01/24 for SINDY. add klonopin 0.5 BID ODT, change risperidone formulation to liquid (pt has been inducing vomiting repeatedly with toothbrush). hold toothbrush unless actively brushing teeth. continues interactive to some extent with MD today, but has been grabbing badges, touching others, and tried to vault into the nursing station in the past 24H. 01/15: IM medication after threatening to punch clinical staff anesthesiologist with intrusive and aggressive behaviors toward peers. pt did not take klonopin as ordered yesterday. DC klonopin and start VPA 500 BID. per staff, running. tried to make herself vomit after taking PRN. labile. ate her feces in the shower and tried to feed it to her 1:1. crawling under tables. tried to jump into nurses station x2. took her shirt off and swinging it around. did not sleep at all. slept at 7:30am. 01/16: refusing VPA, taking risperidone. napped after IMs yesterday. has been bizarre and labile since. slept only 2 hours overnight. continue current mgmt. 01/17: agitated, bizarre, and aggressive behaviors yesterday (punching and kicking beard, stripping off in milieu, attempting to intimidate staff, grabbing stress balls out of staff's hands). did take VPA this morning on its being offered a second time. more calm today. taking risperidone. 01/18: intermittently refusing VPA, seems to be taking risperidone. asks MD if he is alive, then proposes elbow bump. accusing staff of stealing her things (phone), calling mother and senior graphic designer in the middle of the night. slept less than 4 hours. 01/19: more lucid today. concerned about risperidone weight gain. agrees to DC risperidone and try prolixin instead, starting at 2.5 BID. 01/20: very disorganized, bizarre, psychotic today. likely due to equivalent dosing of prolixin being given much lower than prior risperidone. as pt seems to be tolerating prolixin without issues, increase prolixin dosing from 2.5 BID to 5 BID. otherwise continue current mgmt. 01/21: less bizarre and disorganized, but still quite ill. variably compliant with medications. c/o leg pain, lowering self to floor; started cogentin 0.5 BID due to concern for dystonia. c/o nightmares, h/o prazosin with good effect. add prazosin 1 mg QHS as of tonight. 01/22: Patients states that she is good. She is scared of [place] herpes after having sex. She refused to participate in an interview with this provider, and walked away stating i don't need a provider. She was observed by this provider, pacing the [place]. Continue current treatment regimen. 01/23: disorganized and dangerous behaviors. voluntarily took IMs. court tomorrow. 01/24: remains disorganized. ran into staff member yesterday, postured and threatened other staff afterward. slept about 6.[address] this afternoon. 01/25/25: Staff 5 6 hours with broken sleep. Compliant with medication with lots of encouragement from yesterday, refused her vitamins in the morning. CT scan was negative, she fell early in the morning, witness her head hit the wall the trying to put her pants on. Slightly improved in mood with medication compliant. VPA level is 52,1 low side. However patient not consistently take it every day. We will recheck. He is on section 8. Pending Wei's order. Less irritable, less racing. 01/26/25: Mostly compliant with medication, to 250/750 mg of Depakote scheduled at bedtime. Labile, restless, poor boundaries, sexually inappropriate behavior, mood is aggravated . Disorganized. Slightly improving but not much. She is better in terms of compliant with medications. 01/27: mostly compliant with meds. improved from last week, more organized and less labile today. agreement reached on medications, reinstate risperidone as primary antipsychotic Tx, remove request for mood stabilizers, remove ativan. DC prolixin, begin taper of VPA, restart risperidone 2 BID, add thorazine 100 and valium 10 at HS to encourage sleep. awaiting med order. 01/28: last evening was pushing, attempting to kick and bite staff, shoulder- checked peer, exposing genitalia to 1:1 staff. took meds last night and this morning. court order received today, reviewed, medications adjusted to comply with order. reportedly more linear today, but pt declined to meet with MD after brief psychotic interaction with MD. 01/29: dysregulated, agitated behaviors continue last night. calmer days. refused VPA this morning. continue VPA taper, decrease from 500 BID to 250 TID as of today. increase HS seroquel from 300 mg to 400 mg as of tonight and HS valium from 10 mg to 15 mg as of tonight for sleep and sylwia. 01/30: same pattern of calm days through mid-afternoon, then decompensation. add third scheduled dosing of risperidone in the middle of the day, schedule valium in the morning and at 3 pm, otherwise continue current mgmt. increase HS seroquel if pt does not sleep more than several hours tonight. continue VPA taper tomorrow. 01/31: calm, morning. severe akathisia eves, unable to sleep or remain still. slept only 2.5 hours. due to 4 mg risperidone daily being inadequate to treat Sx and 6 mg causing severe akathisia, will DC risperidone in favor of a less potent antipsychotic, seroquel. schedule seroquel 100/100/500. taper VPA to 250 BID as of tomorrow. propranolol 20 TID started last night for akathisia, will continue for now. 02/01: no change - monitor akathisia decrease on new regimen 02/02: nicotine patch taper to 7 mg; seems to be doing better with switch to Seroquel and augmentation with Propranolol; primary team may f/u with further discussion of behavioral plan 02/03: much improved from last week. calm, linear, logical, topical. slept 6 hours each the last 3 nights. c/o sedation. decrease daytime valium from 5 BID to 2 BID. decrease daytime seroquel from 100 BID to 75 BID. taper VPA from 250 BID to 250 QHS. 02/04: remains much improved. no overt MSE abnormalities. c/o sedation, decrease seroquel from 75 BID to 50 BID and from 500 QHS to 400 QHS. DC VPA entirely. otherwise continue current mgmt. 02/05: backsliding today. irritable, erratic, more disorganized, labile. stating her intent to stop taking medications, demanding discharge. continue current mgmt. 02/06: much improved today. calm, logical, cogent and topical. pt would like to taper off of valium (addicting) and onto a proper mood stabilizer. corporate legal manager notified. DC daytime valium. restart prazosin due to c/o nightmares. decrease propranolol from 20 TID to 10 TID (should no longer be necessary as off of medications likely to cause akathisia). DC daytime seroquel tomorrow. 02/07: similar conversation to yesterday. DC daytime seroquel. awaiting word from legal re adding lithium. otherwise continue current mgmt. 02/08: keeping to self. irritable edge. pt reports feeling overwhelmed d/t room change. medication compliant. focused on returning home. denies SI/HI/VH/AH. per nursing, slept 6 hours last night. continue current tx plan. 02/09: irritable edge. medication compliant. focused on returning home. intrusive during a peer's treatment; declined to walk away when asked by staff multiple times; poor insight and judgment. pt became upset after meeting with her mother; pt stated, my mom says its my behavior why I'm still here. I think they are keeping me here because I locked myself in that room . Valium decreased to 10mg PO bedtime. 02/10: irritable. medication compliant. Perseverative on discharge. Patient reports sleeping well last night. Appears calmer today. She reports visit with her mother when well. Denies SI/HI/VH/AH. Attending groups. Continue current treatment plan. 02/11/25: Irritable, irrational regarding why she is still being here. Poor insight and poor judgment. Not thinks she has bipolar. She only believes she has has ADHD and autism, therefore she does not need to be here and that no reason to keep her here longer. As a future, she does not think she going to continue taking medication after discharge per nursing. Racing thoughts. At times she is calm, able to attend groups, and some what appropriate. Have good visit with brother and mom yesterday. Not able to discuss for medication change due to agitated/irritable mood. 02/12/25: Been sleeping well, no issue with appetite, attended groups, have visit with mom. Both mom and patient the nurse believe that patient is not manic or having any bipolar features. They only believe that she has ADHD and autism. Mom advocate for patient to be discharged. Mom claims that the treatment team has not ever reach out to her. Both of the agree to have a family meeting in the future. We will leave message to the team to set it up. Patient has some mood swing, but overall, continued to improve with help of the medication. She wants to be off from Valium, but do not want any other medication change. Both Seroquel and Valium is on [facility] order. No other safety concerns. 02/13/25: Slept well, compliant with medications, refused nicotine patch on. Observed visible and attending groups, irritable at times, hyper focused on discharge as her normal baseline of everyday. Do not want any medication change. Reports gaining 28 lb since she got here. Nutrition consult placed. We will add Adderall on allergy list which make her psychotic. Patient to nursing put it in her allergy list. Some labile mood, pressured speech. 02/14: continue current tx plan. 02/15/25: Slept well, manage meal intake, portion size, healthier snacks to control her weight gain. Met with the dietitian today. She also ask staff to pronounce the list of healthy/happy food. Family brought in some healthy snack for her. She was mad being wakened up to get vital signs in the morning by nursing staff. Denies suicidal thoughts, denies hallucinations. She asked questions regarding diagnosis. Educate her regarding psychosis that she came with. Explained with her regarding medication she has been taking here, she will be discharged with, and then work with the outpatient psychiatrist to continue with [facility] orders, making any change if necessary. She is more receptive with the plan, more rationale when she is not in the bad mood. She appreciates the time I spent talking to her today. She attended groups, visible. No ADLs issues. Can be irritable at times. Refused her propranolol in the morning. She took multivitamins later on of the day after she refused. Change nicotine patch to p.r.n.. 02/16/25: Reported that she was angry, other than that she feels mood more stable today. Nursing staff contacted this provider reported that patient in the past was allowed using the head phone at night to cancel out the noise. Patient asked if she was allowed to use it again. Patient focused on healthy food, eating yogurt only in the morning. Family brought in more seeds instead of eating unhealthy food from hospital. She also was irritable as someone touching her clothes in the washer. She has a couple visits today. She feels ready to leave and stable enough to go home to community. She is looking forward to talk to her attending this week regarding discharge. Denies other safety concerns. She has been irritable at times, but able to control her anger. She said this is her baseline, and being in here is make her more irritable. Had phones use overnight order was discontinued per policy. 02/17: calm, logical, cooperative. appearing overly controlled, unnatural in doing so. medications plan at our last meeting resurrected - start lithium, taper seroquel and valium. pt states she is open to mood stabilizers. informs pt he believes she lacks capacity presently and will notify traffic law attorney to communicate with pt's traffic law attorney. hospital traffic law attorney notified. continue current mgmt for now. 02/18: corresponding with traffic law attorney re stipulated agreement. pt intrusive with peers and resistant to redirection by staff. with MD pt is calm and cooperative, but attempting to engage in argument justifying her intrusive behavior. continue current mgmt. slept well. 02/19/25: showered in the morning, reasonable, , slept for 6 hours I was up for snack , compliant with meds except Propranonol at 1500 yesterday. She asked if she can use electric razor to trim the pubic hair which was not allowed per safety and unit policy. Continue working healthy diet and snack. 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 No major behavior issues. Sometimes ask for stuff she knows they are not allowed. Continue with the plan. 02/20: refused seroquel last night, did not receive IM back-up. appears with bizarre smile today, believes she doesn't need medications and is ready to discharge. 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 plan for lithium in lieu of valium and seroquel, ideally, reviewed. pt appears to have very poor retention, as this plan has been discussed numerous times. pt was encouraged to discuss with her traffic law attorney and was given her traffic law attorney's contact information ([facility] number). 02/21: talking about not taking meds once discharged. refusing meds then taking them last second prior to IM administration. labile, irritable. very disorganized today, severely impaired cognitive performance. restart valium 5 and seroquel 75 BID at 0900, 1500. otherwise continue current mgmt. awaiting word from product representative re stipulated agreement for mood stabilizers. 02/22: Continue current regimen and plans. Orajel ordered. 02/23: Continue current plans and regimen 02/24: more organized and less oppositional, labile, intrusive, impulsive than monday. willing to take lithium. per traffic law attorney, we may have a stipulated agreement. continue current mgmt for now, hoping to start lithium GIRISH. 02/25/25: Amend the treatment plan to include mood stabilizer Mcfarlan Carbonate as primary treatment at therapeutic blood levels. Organized at times but when she is more anxious, less rationale. She does not accept new add on Mcfarlan on Wei's order that is effective today it is fake, you can keep it. I need to talk to my senior graphic designer . why I need Mcfarlan?I do not have bipolar . She believes she has autism and ADHD only. She asked inappropriate question such as if this provider knowing what JERSON and if this provider used it before. Patient asked to get her OP therapist to involve in decision making on meds. Prior to this conversation, she was calm, showing pictures of herself and family members that she has personal space for them on the wall. Some labile mood, underline irritable but no angry outburst. At some point, she states that Seroquel added on during daytime is helping with her mood and that I was not mad when she was waken up this morning. Denies SI/SIB/HI/AVH Mcfarlan ER 600mg daily at HS for mood. With some labs ordered for lolita CMP, TSH, Free T4. 02/26/25 Slept for 8 hours, compliant with medications except lithium. Rumination, poor insight and judgment, asking inappropriate questions, thought processes not on treatment, racing, anxious, appears to be paranoid. The RN showed the new amended Wei order, she does not believe it is true and wanted fire her traffic law attorney. HRO notified, met with patient. Continued to she is not bipolar, believes she has PTSD symptoms that causing her mood changes. Want this to talk to her outpatient therapist. We will arrange to make phone call for collateral. Change Mcfarlan ER from 600mg at HS to BID with IM of 5mg Valium IM back up if refuse. 02/27/25: Slept for 8 hours, compliant with medications, except for lithium- received Valium IM backup. Continued to resist to mood stabilizer, poor judgment, poor insight, do not believe she has bipolar. Nursing staff reports she was rude, inappropriate with staff, asking inappropriate questions. Racing thoughts. Request information regarding lithium. Nursing staff pronounced the handout, she has not in hand. Side effects noted. We will contact Josy Franklin- OP therapist at [phone] per patient request as she believes that her therapist should be involved in the decision making regarding diagnosis. 02/28/25: Continued to improve in sleep. Medication compliant, except for lithium yesterday morning. She took the evening dose per nursing report. Nurse's also provide patient with information related to lithium. Patient request the current Muniz order. Given a copy. She finally wants to keep it as she has been referred to review. She requests take her off from Seroquel if this provider wants her to text lithium which is unreasonable as she requests to take her off of them. Not able to rationale with her about the medication plan. Slightly having some open and accepting lithium. At home she will compliant do well with the lithium. In the future when she got into therapeutic level targeting labile mood, we can taper down on Seroquel or taper down on Valium. At this current time, due to current mental status, she can not process the information, not register in her mind for medication plans at this time. She does not trust the provider, she does not believe she has bipolar which is hard to convince her to take lithium. Labile mood, irritable and can be rude. Monitor over weakens for [place] and other medication compliant. IM back up available per Flavio' order. Attempted to call Josy [facility] therapist at [phone]. Left voices message with front desk agent. Waiting for a call back. 03/01: calm, cooperative, logical. still processing difficulties, but improved from last time we met. taking lithium for 2 days now, slept 8 hours overnight. decrease seroquel 75/75/400 to 50/50/300 and valium 5 BID to 4 BID. otherwise continue current mgmt. 03/02: declined interview for phone call. per staff, taking meds, accusing staff of trying to change her personality. Reason for continued inpatient stay Substantial Risk for: inability to function and rapid decompensation Time Spent With Patient Time: Total time managing care of this patient today ____ minutes.
[2025-03-02 20:50] VITALS: BP 109/55; PULSE 96; RESP 16; TEMP 36.8; O2SAT 96
[2025-03-03 08:00] VITALS: BP 119/65; PULSE 88; RESP 16; TEMP 36.6; O2SAT 100
[2025-03-03] MEDS: Calcium + Vitamin D 250 MG TABLET PO ×2 (08:45→17:25)
[2025-03-03 08:46] VITALS: BP 119/65; PULSE 100
[2025-03-03 14:52] VITALS: BP 118/62; PULSE 100
[2025-03-03 18:18] VITALS: BMI 35.4
--- NOTE | 2025-03-03 19:35 | HO.PSYCHPN ---
Subjective Subjective Date of Service: 03/03/25 Reason For Visit: Crisis Subjective Notes: [facility]iz Order and Section 8 Healthcare Proxy: No Guardianship: No Medical Problems Affecting Mental Status: No Interim History: Medical record and nursing notes reviewed; case discussed during rounds with team/nursing staff, and met with patient for supportive therapy/psychoeducation, as well as medication management. Patient slept for 7 hours, compliant with medication p.o Included lithium. Some labile mood, irritable, making accusation regarding what provider told her during assessment. She reported that she has has been calling outpatient therapist repeatedly but has not received a call back. Patient was informed that this provider also called, waiting for a call back as well. She asked why can not she take medication like this with the outpatient provider. Explained to her that she needs to be more stable before we discharge her, as now per her perception, she may feel that she is ready to go home, but other people in the treatment team do not think she is ready yet. Per nursing patient was better over the weekends, less provocative. Medication Compliance: Yes Side effects from medications: No Attending Groups: Intermittent Review of Systems Acute medical concerns: No Medical Review of Systems: unchanged Review of Systems Review of Systems Constitutional: Denies fatigue and Denies fever(s) Cardiovascular: Denies chest pain and Denies dyspnea Respiratory: Denies dyspnea Gastrointestinal: Denies abdominal pain Psychiatric: denies suicidal ideation Endocrine: Denies fatigue Yes all other systems are reviewed and are negative Mental Status Exam Mental Status Exam Narrative: Appearance: adequately dressed and groomed Behavior: no PMA/PMR. Speech: nml amount, nml loudness. nml latency. TP: organized, linear but can be a rationale TC: Took medication, but not agree with treatment. Mood: not assessed Affect: calm, constricted AH/VH: none expressed Insight/judgment: impaired Memory/cog: alert, impaired. Diagnostics Vital Signs (24Hr): Vital Signs - 24 hr 03/02/25 20:50 03/03/25 08:00 03/03/25 08:46 Temperature 98.2 F 98 F Pulse Rate 96 88 100 Respiratory Rate 16 16 Blood Pressure 109/55 L 119/65 119/65 Pulse Oximetry 96 100 Oxygen Delivery Method Room Air Room Air 03/03/25 14:52 Temperature Pulse Rate 100 Respiratory Rate Blood Pressure 118/62 Pulse Oximetry Oxygen Delivery Method BMI result Body Mass Index 35.4 Labs 01/09/25 16:36 02/26/25 08:32 Imaging Radiology Impressions: ITS Impressions Hand X-Ray 01/16/25 11:30 IMPRESSION: Unremarkable right hand Electronically signed by: Casa Rush MD 01/16/2025 11:46 AM EDT RP Hand X-Ray 01/29/25 07:30 IMPRESSION: Unremarkable examination of the right hand. Electronically signed by: Obdulio Tolbert MD 01/30/2025 07:56 AM EDT RP Medications Medications Current Medications Acetaminophen (Acetaminophen 325 Mg Tablet) 650 mg PO Q6H PRN PRN Reason: Headache/Pain, Scale 1-10 Last Admin: 03/02/25 07:06 Dose: 650 mg Al Hydroxide/Mg Hydroxide (Magnesium Hydrox/Alum Hydrox 30 Ml Oral.Susp) 30 ml PO Q6H PRN PRN Reason: Heartburn/Nausea Last Admin: 01/30/25 14:06 Dose: 30 ml Artificial Tears (Artificial Tears 15 Ml Drops) 2 drop EYE-BOTH Q4H PRN PRN Reason: Dry Eyes Last Admin: 02/06/25 09:24 Dose: 2 drop Benzocaine (Benzocaine 20 % Oral Gel 14 Gm Tube) 1 appl MUCOUS MEM QID PRN; Protocol PRN Reason: Pain, Mild 1-3,fever,headache Last Admin: 03/02/25 07:06 Dose: 1 appl Calcium Carbonate/Cholecalciferol (Calcium + Vitamin D 250 Mg Tablet) 250 mg PO BIDWM [facility] Last Admin: 03/03/25 17:25 Dose: 250 mg Diazepam (Diazepam 5 Mg Tablet) 5 mg PO Q4H PRN PRN Reason: agitation Last Admin: 02/18/25 08:48 Dose: 5 mg Diazepam (Diazepam 10 Mg/2 Ml Cartridge) 5 mg IM TID PRN PRN Reason: refuse Tumwater and Valium Last Admin: 02/27/25 09:00 Dose: 5 mg Diazepam (Diazepam 5 Mg Tablet) 10 mg PO BEDTIME [facility] Last Admin: 03/02/25 20:53 Dose: 10 mg Diazepam (Diazepam 2 Mg Tablet) 4 mg PO BID@0900,1500 [facility] Last Admin: 03/03/25 14:52 Dose: 4 mg Docusate Sodium (Docusate Sodium 100 Mg Capsule) 100 mg PO BID PRN PRN Reason: Constipation Last Admin: 01/30/25 20:10 Dose: 100 mg Haloperidol Lactate (Haloperidol Lactate 5 Mg/Ml Vial) 5 mg IM TID PRN PRN Reason: refusal of scheduled seroquel Last Admin: 02/04/25 20:14 Dose: 5 mg Hydrocortisone (Hydrocortisone 2.5 % Rectal Cr 30 Gm Tube) 1 appl LA DAILY PRN PRN Reason: hemrroids Last Admin: 01/26/25 14:57 Dose: 1 appl Tumwater Carbonate (Tumwater Carbonate Er 300 Mg Tablet.Er) 300 mg PO BID VERONICA Last Admin: 03/03/25 08:45 Dose: 300 mg Magnesium Hydroxide (Milk Of Magnesia 30 Ml Oral.Susp) 30 ml PO DAILY PRN PRN Reason: Constipation Last Admin: 01/26/25 14:59 Dose: 30 ml Multivitamins/Vitamin C (Multivitamin Tablet) 1 tab PO DAILY VERONICA Last Admin: 03/03/25 08:44 Dose: 1 tab Nicotine (Nicotine 7 Mg Patch.Td24) 7 mg TRANSDERMA DAILY PRN PRN Reason: Nicotine craving Nicotine Polacrilex (Nicotine Polacrilex 2 Mg Gum) 4 mg BUCCAL Q2H PRN PRN Reason: Nicotine Cravings Last Admin: 02/21/25 17:26 Dose: 4 mg Polyethylene Glycol (Polyethylene Glycol 3350 17 Gm Powd.Pack) 17 gm PO DAILY PRN PRN Reason: constipation Prazosin HCl (Prazosin Hcl 1 Mg Capsule) 1 mg PO BEDTIME VERONICA; Protocol Last Admin: 03/02/25 20:53 Dose: 1 mg Propranolol HCl (Propranolol Hcl 10 Mg Tablet) 10 mg PO TID VERONICA; Protocol Last Admin: 03/03/25 14:52 Dose: 10 mg Quetiapine Fumarate (Quetiapine Fumarate 50 Mg Tablet) 50 mg PO BID@0900,1500 [facility] Last Admin: 03/03/25 14:53 Dose: 50 mg Quetiapine Fumarate (Quetiapine Fumarate 300 Mg Tablet) 300 mg PO BEDTIME VERONICA Last Admin: 03/02/25 20:53 Dose: 300 mg Allergies Allergies Allergy/AdvReac Type Severity Reaction Status Date / Time amphetamine (From Adderall) Allergy Severe psychosis/ Verified 02/13/25 22:40 Manic dextroamphetamine (From Allergy Severe psychosis/ Verified 02/13/25 22:40 Adderall) Manic olanzapine (From Zyprexa) AdvReac Rash Verified 12/31/24 18:41 Assessment & Plan Assessment & Plan (1) Psychosis: Status: Acute Code(s): F29 - Unspecified psychosis not due to a substance or known physiological condition Plan Ms. Sheridan is a 34 year-old woman who presents with s/s of psychosis, disorganized, some degree of paranoia. She had similar episode back in 2020. 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 I do suspect that there may be underlying psychiatric disorder that is triggered by amphetamine use but not necessarily caused by it. Further evaluation to clarify dx is needed. We discussed inpt level of care. We also discussed restarting risperidone 1mg po BID. low dose clonazepam. continue clonidine. 1. IPLOC 2. start risperidone 1mg po BID. Clonazepam 0.5mg po BID. 01/05: Continue current regimen and plans. 01/06: slept only 2 hours, disorganized, decompensated behaviors. unable to interact cogently. refusing risperidone, will offer seroquel instead. possible bipolar diathesis, T/C mood stabilizer. delirium also a possibility, as the mental status change since admission appears to be striking. 01/07: took seroquel 200 last night, slept 5.5 hours. more organized, linear, able to engage today. continue current mgmt. 01/08: refused seroquel last NOC, slept only 30 minutes. agitated, bizarre, disorganized today. commitment paperwork filed. 01/09: refused meds yesterday but got IMs due to behaviors (outbursts, touching peers, yelling, banging doors, pushed her sitter, climbing on tables and chairs. threatening to stab self with pens). more linear and engageable today, once again the day after having takenm medication. agrees to continue to take seroquel 200 mg QHS. 01/10: took seroquel last NOC and slept 4 hours overnight, but bizarre today. less agitation and intrusiveness than yesterday, but still bizarre and fairly intrusive. pt appears willing to take risperidone, will DC seroquel and return to dosing of risperidone 2 mg BID. took first dose this afternoon. court next monday. 01/11 very paranoid, fearful, taking medications 01/12 continue tx. 01/13: appears a bit more organized today than when not taking medications, although slow and processing poorly. declines to sign CV. commitment hearing tomorrow. 01/14: hearing continued until 01/24 for SINDY. add klonopin 0.5 BID ODT, change risperidone formulation to liquid (pt has been inducing vomiting repeatedly with toothbrush). hold toothbrush unless actively brushing teeth. continues interactive to some extent with MD today, but has been grabbing badges, touching others, and tried to vault into the nursing station in the past 24H. 01/15: IM medication after threatening to punch air liaison and special staff with intrusive and aggressive behaviors toward peers. pt did not take klonopin as ordered yesterday. DC klonopin and start VPA 500 BID. per staff, running. tried to make herself vomit after taking PRN. labile. ate her feces in the shower and tried to feed it to her 1:1. crawling under tables. tried to jump into nurses station x2. took her shirt off and swinging it around. did not sleep at all. slept at 7:30am. 01/16: refusing VPA, taking risperidone. napped after IMs yesterday. has been bizarre and labile since. slept only 2 hours overnight. continue current mgmt. 01/17: agitated, bizarre, and aggressive behaviors yesterday (punching and kicking beard, stripping off in milieu, attempting to intimidate staff, grabbing stress balls out of staff's hands). did take VPA this morning on its being offered a second time. more calm today. taking risperidone. 01/18: intermittently refusing VPA, seems to be taking risperidone. asks MD if he is alive, then proposes elbow bump. accusing staff of stealing her things (phone), calling mother and laborer concrete paving in the middle of the night. slept less than 4 hours. 01/19: more lucid today. concerned about risperidone weight gain. agrees to DC risperidone and try prolixin instead, starting at 2.5 BID. 01/20: very disorganized, bizarre, psychotic today. likely due to equivalent dosing of prolixin being given much lower than prior risperidone. as pt seems to be tolerating prolixin without issues, increase prolixin dosing from 2.5 BID to 5 BID. otherwise continue current mgmt. 01/21: less bizarre and disorganized, but still quite ill. variably compliant with medications. c/o leg pain, lowering self to floor; started cogentin 0.5 BID due to concern for dystonia. c/o nightmares, h/o prazosin with good effect. add prazosin 1 mg QHS as of tonight. 01/22: Patients states that she is good. She is scared of [place] herpes after having sex. She refused to participate in an interview with this provider, and walked away stating i don't need a provider. She was observed by this provider, pacing the [place]. Continue current treatment regimen. 01/23: disorganized and dangerous behaviors. voluntarily took IMs. court tomorrow. 01/24: remains disorganized. ran into staff member yesterday, postured and threatened other staff afterward. slept about 6.[address] afternoon. 01/25/25: Staff 5 6 hours with broken sleep. Compliant with medication with lots of encouragement from yesterday, refused her vitamins in the morning. CT scan was negative, she fell early in the morning, witness her head hit the wall the trying to put her pants on. Slightly improved in mood with medication compliant. VPA level is 52,1 low side. However patient not consistently take it every day. We will recheck. He is on section 8. Pending Wei's order. Less irritable, less racing. 01/26/25: Mostly compliant with medication, to 250/750 mg of Depakote scheduled at bedtime. Labile, restless, poor boundaries, sexually inappropriate behavior, mood is aggravated . Disorganized. Slightly improving but not much. She is better in terms of compliant with medications. 01/27: mostly compliant with meds. improved from last week, more organized and less labile today. agreement reached on medications, reinstate risperidone as primary antipsychotic Tx, remove request for mood stabilizers, remove ativan. DC prolixin, begin taper of VPA, restart risperidone 2 BID, add thorazine 100 and valium 10 at HS to encourage sleep. awaiting med order. 01/28: last evening was pushing, attempting to kick and bite staff, shoulder-checked peer, exposing genitalia to 1:1 staff. took meds last night and this morning. court order received today, reviewed, medications adjusted to comply with order. reportedly more linear today, but pt declined to meet with MD after brief psychotic interaction with MD. 01/29: dysregulated, agitated behaviors continue last night. calmer days. refused VPA this morning. continue VPA taper, decrease from 500 BID to 250 TID as of today. increase HS seroquel from 300 mg to 400 mg as of tonight and HS valium from 10 mg to 15 mg as of tonight for sleep and sylwia. 01/30: same pattern of calm days through mid-afternoon, then decompensation. add third scheduled dosing of risperidone in the middle of the day, schedule valium in the morning and at 3 pm, otherwise continue current mgmt. increase HS seroquel if pt does not sleep more than several hours tonight. continue VPA taper tomorrow. 01/31: calm, morning. severe akathisia eves, unable to sleep or remain still. slept only 2.5 hours. due to 4 mg risperidone daily being inadequate to treat Sx and 6 mg causing severe akathisia, will DC risperidone in favor of a less potent antipsychotic, seroquel. schedule seroquel 100/100/500. taper VPA to 250 BID as of tomorrow. propranolol 20 TID started last night for akathisia, will continue for now. 02/01: no change - monitor akathisia decrease on new regimen 02/02: nicotine patch taper to 7 mg; seems to be doing better with switch to Seroquel and augmentation with Propranolol; primary team may f/u with further discussion of behavioral plan 02/03: much improved from last week. calm, linear, logical, topical. slept 6 hours each the last 3 nights. c/o sedation. decrease daytime valium from 5 BID to 2 BID. decrease daytime seroquel from 100 BID to 75 BID. taper VPA from 250 BID to 250 QHS. 02/04: remains much improved. no overt MSE abnormalities. c/o sedation, decrease seroquel from 75 BID to 50 BID and from 500 QHS to 400 QHS. DC VPA entirely. otherwise continue current mgmt. 7/23: backsliding today. irritable, erratic, more disorganized, labile. stating her intent to stop taking medications, demanding discharge. continue current mgmt. 02/06: much improved today. calm, logical, cogent and topical. pt would like to taper off of valium (addicting) and onto a proper mood stabilizer. legal compliance officer notified. ND daytime valium. restart prazosin due to c/o nightmares. decrease propranolol from 20 TID to 10 TID (should no longer be necessary as off of medications likely to cause akathisia). ND daytime seroquel tomorrow. 02/07: similar conversation to yesterday. DC daytime seroquel. awaiting word from legal re adding lithium. otherwise continue current mgmt. 02/08: keeping to self. irritable edge. pt reports feeling overwhelmed d/t room change. medication compliant. focused on returning home. denies SI/HI/VH/AH. per nursing, slept 6 hours last night. continue current tx plan. 02/09: irritable edge. medication compliant. focused on returning home. intrusive during a peer's treatment; declined to walk away when asked by staff multiple times; poor insight and judgment. pt became upset after meeting with her mother; pt stated, my mom says its my behavior why I'm still here. I think they are keeping me here because I locked myself in that room . Valium decreased to 10mg PO bedtime. 02/10: irritable. medication compliant. Perseverative on discharge. Patient reports sleeping well last night. Appears calmer today. She reports visit with her mother when well. Denies SI/HI/VH/AH. Attending groups. Continue current treatment plan. 02/11/25: Irritable, irrational regarding why she is still being here. Poor insight and poor judgment. Not thinks she has bipolar. She only believes she has has ADHD and autism, therefore she does not need to be here and that no reason to keep her here longer. As a future, she does not think she going to continue taking medication after discharge per nursing. Racing thoughts. At times she is calm, able to attend groups, and some what appropriate. Have good visit with brother and mom yesterday. Not able to discuss for medication change due to agitated/irritable mood. 02/12/25: Been sleeping well, no issue with appetite, attended groups, have visit with mom. Both mom and patient the nurse believe that patient is not manic or having any bipolar features. They only believe that she has ADHD and autism. Mom advocate for patient to be discharged. Mom claims that the treatment team has not ever reach out to her. Both of the agree to have a family meeting in the future. We will leave message to the team to set it up. Patient has some mood swing, but overall, continued to improve with help of the medication. She wants to be off from Valium, but do not want any other medication change. Both Seroquel and Valium is on Muniz order. No other safety concerns. 02/13/25: Slept well, compliant with medications, refused nicotine patch on. Observed visible and attending groups, irritable at times, hyper focused on discharge as her normal baseline of everyday. Do not want any medication change. Reports gaining 28 lb since she got here. Nutrition consult placed. We will add Adderall on allergy list which make her psychotic. Patient to nursing put it in her allergy list. Some labile mood, pressured speech. 02/14: continue current tx plan. 02/15/25: Slept well, manage meal intake, portion size, healthier snacks to control her weight gain. Met with the dietitian today. She also ask staff to pronounce the list of healthy/happy food. Family brought in some healthy snack for her. She was mad being wakened up to get vital signs in the morning by nursing staff. Denies suicidal thoughts, denies hallucinations. She asked questions regarding diagnosis. Educate her regarding psychosis that she came with. Explained with her regarding medication she has been taking here, she will be discharged with, and then work with the outpatient psychiatrist to continue with Muniz orders, making any change if necessary. She is more receptive with the plan, more rationale when she is not in the bad mood. She appreciates the time I spent talking to her today. She attended groups, visible. No ADLs issues. Can be irritable at times. Refused her propranolol in the morning. She took multivitamins later on of the day after she refused. Change nicotine patch to p.r.n.. 02/16/25: Reported that she was angry, other than that she feels mood more stable today. Nursing staff contacted this provider reported that patient in the past was allowed using the head phone at night to cancel out the noise. Patient asked if she was allowed to use it again. Patient focused on healthy food, eating yogurt only in the morning. Family brought in more seeds instead of eating unhealthy food from hospital. She also was irritable as someone touching her clothes in the washer. She has a couple visits today. She feels ready to leave and stable enough to go home to community. She is looking forward to talk to her attending this week regarding discharge. Denies other safety concerns. She has been irritable at times, but able to control her anger. She said this is her baseline, and being in here is make her more irritable. Had phones use overnight order was discontinued per policy. 02/17: calm, logical, cooperative. appearing overly controlled, unnatural in doing so. medications plan at our last meeting resurrected - start lithium, taper seroquel and valium. pt states she is open to mood stabilizers. MD informs pt he believes she lacks capacity presently and will notify assistant district attorney to communicate with pt's assistant district attorney. hospital assistant district attorney notified. continue current mgmt for now. 02/18: corresponding with assistant district attorney re stipulated agreement. pt intrusive with peers and resistant to redirection by staff. with MD pt is calm and cooperative, but attempting to engage in argument justifying her intrusive behavior. continue current mgmt. slept well. 02/19/25: showered in the morning, reasonable, , slept for 6 hours I was up for snack , compliant with meds except Propranonol at 1500 yesterday. She asked if she can use electric razor to trim the pubic hair which was not allowed per safety and unit policy. Continue working healthy diet and snack. 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 No major behavior issues. Sometimes ask for stuff she knows they are not allowed. Continue with the plan. 02/20: refused seroquel last night, did not receive IM back-up. appears with bizarre smile today, believes she doesn't need medications and is ready to discharge. 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 plan for lithium in lieu of valium and seroquel, ideally, reviewed. pt appears to have very poor retention, as this plan has been discussed numerous times. pt was encouraged to discuss with her assistant district attorney and was given her assistant district attorney's contact information ([facility] number). 02/21: talking about not taking meds once discharged. refusing meds then taking them last second prior to IM administration. labile, irritable. very disorganized today, severely impaired cognitive performance. restart valium 5 and seroquel 75 BID at 0900, 1500. otherwise continue current mgmt. awaiting word from magnesium mill operator re stipulated agreement for mood stabilizers. 02/22: Continue current regimen and plans. Orajel ordered. 02/23: Continue current plans and regimen 02/24: more organized and less oppositional, labile, intrusive, impulsive than monday. willing to take lithium. per assistant district attorney, we may have a stipulated agreement. continue current mgmt for now, hoping to start lithium GIRISH. 02/25/25: Amend the treatment plan to include mood stabilizer Tumwater Carbonate as primary treatment at therapeutic blood levels. Organized at times but when she is more anxious, less rationale. She does not accept new add on Tumwater on Wei's order that is effective today it is fake, you can keep it. I need to talk to my laborer concrete paving . why I need Tumwater?I do not have bipolar . She believes she has autism and ADHD only. She asked inappropriate question such as if this provider knowing what JERSON and if this provider used it before. Patient asked to get her OP therapist to involve in decision making on meds. Prior to this conversation, she was calm, showing pictures of herself and family members that she has personal space for them on the wall. Some labile mood, underline irritable but no angry outburst. At some point, she states that Seroquel added on during daytime is helping with her mood and that I was not mad when she was waken up this morning. Denies SI/SIB/HI/AVH Tumwater ER 600mg daily at HS for mood. With some labs ordered for lolita CMP, TSH, Free T4. 02/26/25 Slept for 8 hours, compliant with medications except lithium. Rumination, poor insight and judgment, asking inappropriate questions, thought processes not on treatment, racing, anxious, appears to be paranoid. The RN showed the new amended Wei order, she does not believe it is true and wanted fire her assistant district attorney. HRO notified, met with patient. Continued to she is not bipolar, believes she has PTSD symptoms that causing her mood changes. Want this to talk to her outpatient therapist. We will arrange to make phone call for collateral. Change Tumwater ER from 600mg at HS to BID with IM of 5mg Valium IM back up if refuse. 02/27/25: Slept for 8 hours, compliant with medications, except for lithium-received Valium IM backup. Continued to resist to mood stabilizer, poor judgment, poor insight, do not believe she has bipolar. Nursing staff reports she was rude, inappropriate with staff, asking inappropriate questions. Racing thoughts. Request information regarding lithium. Nursing staff pronounced the handout, she has not in hand. Side effects noted. We will contact Josy BLACKBURN therapist at [phone] per patient request as she believes that her therapist should be involved in the decision making regarding diagnosis. 02/28/25: Continued to improve in sleep. Medication compliant, except for lithium yesterday morning. She took the evening dose per nursing report. Nurse's also provide patient with information related to lithium. Patient request the current [facility] order. Given a copy. She finally wants to keep it as she has been referred to review. She requests take her off from Seroquel if this provider wants her to text lithium which is unreasonable as she requests to take her off of them. Not able to rationale with her about the medication plan. Slightly having some open and accepting lithium. At home she will compliant do well with the lithium. In the future when she got into therapeutic level targeting labile mood, we can taper down on Seroquel or taper down on Valium. At this current time, due to current mental status, she can not process the information, not register in her mind for medication plans at this time. She does not trust the provider, she does not believe she has bipolar which is hard to convince her to take lithium. Labile mood, irritable and can be rude. Monitor over weakens for [place] and other medication compliant. IM back up available per Flavio' order. Attempted to call Josy Rich at [phone]. Left voices message with front end web developer. Waiting for a call back. 03/01: calm, cooperative, logical. still processing difficulties, but improved from last time we met. taking lithium for 2 days now, slept 8 hours overnight. decrease seroquel 75/75/400 to 50/50/300 and valium 5 BID to 4 BID. otherwise continue current mgmt. 03/02: declined interview for phone call. per staff, taking meds, accusing staff of trying to change her personality. 03/03/25: Patient slept for 7 hours, compliant with medication p.o Included lithium. Some labile mood, irritable, making accusation regarding what provider told her during assessment. She reported that she has has been calling outpatient therapist repeatedly but has not received a call back. Patient was informed that this provider also called, waiting for a call back as well. She asked why can not she take medication like this with the outpatient provider. Explained to her that she needs to be more stable before we discharge her, as now per her perception, she may feel that she is ready to go home, but other people in the treatment team do not think she is ready yet. Per nursing patient was better over the weekends, less provocative. Think we are changing her personality. We will check the lithium level on Monday morning. Been taking consistently the past 3 and half days. Patient educated on: diagnosis, medication risk/benefits and therapeutic strategies Informed Consent: further education needed Reason for continued inpatient stay Substantial Risk for: med/psych decompensation Time Spent With Patient Time: Total time managing care of this patient today ____ minutes.
[2025-03-03 20:00] VITALS: BP 100/60; PULSE 86; RESP 16; TEMP 36.9; O2SAT 98
[2025-03-04 09:00] VITALS: BP 109/60; PULSE 100; RESP 16; TEMP 36.6; O2SAT 96
[2025-03-04] MEDS: Calcium + Vitamin D 250 MG TABLET PO ×2 (09:08→16:57)
--- NOTE | 2025-03-04 11:36 | P.PNPSI_ITS ---
Subjective Subjective Date of Service: 03/04/25 Reason For Visit: Crisis Subjective Notes: Muniz Order and Section 8 Healthcare Proxy: No Guardianship: No Medical Problems Affecting Mental Status: No Interim History: Medical record and nursing notes reviewed; case discussed during rounds with team/nursing staff, and met with patient for supportive therapy/psychoeducation, as well as medication management. Patient slept well, compliant with medication. Continue calling outpatient therapist herself. She has not hearing back from them. She reported that she wants to go home, therefore she will do whatever she needs to do to get home. 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 Explained to her that we will get the level tomorrow, level coming back subtherapeutic, we will increase dose of the lithium. In the meantime, we will consider to lower Seroquel down, mood is more stable. She is less labile today, attended to some groups. No safety concern. Constricted affect. Less irritable. Medication Compliance: Yes Side effects from medications: No Attending Groups: Intermittent Review of Systems Acute medical concerns: No Medical Review of Systems: unchanged Review of Systems Review of Systems Constitutional: Denies fatigue and Denies fever(s) Cardiovascular: Denies chest pain and Denies dyspnea Respiratory: Denies dyspnea Gastrointestinal: Denies abdominal pain Psychiatric: denies suicidal ideation Endocrine: Denies fatigue Yes all other systems are reviewed and are negative Mental Status Exam Mental Status Exam Narrative: Appearance: adequately dressed and groomed Behavior: no PMA/PMR. Speech: nml amount, nml loudness. nml latency. TP: organized, linear but can be irrational TC: Took medication, but not agree with dx. Mood: not assessed Affect: calm, constricted AH/VH: none expressed Insight/judgment: impaired Memory/cog: alert, impaired. Diagnostics Vital Signs (24Hr): Vital Signs - 24 hr 03/03/25 14:52 03/03/25 20:00 03/04/25 09:00 Temperature 98.4 F 97.9 F Pulse Rate 100 86 100 Respiratory Rate 16 16 Blood Pressure 118/62 100/60 109/60 Pulse Oximetry 98 96 Oxygen Delivery Method Room Air Room Air BMI result Body Mass Index 35.4 Labs 01/09/25 16:36 02/26/25 08:32 Imaging Radiology Impressions: ITS Impressions Hand X-Ray 01/16/25 11:30 IMPRESSION: Unremarkable right hand Electronically signed by: Casa Rush MD 01/16/2025 11:46 AM EDT RP Hand X-Ray 01/29/25 07:30 IMPRESSION: Unremarkable examination of the right hand. Electronically signed by: Obdulio Tolbert MD 01/30/2025 07:56 AM EDT RP Medications Medications Current Medications Acetaminophen (Acetaminophen 325 Mg Tablet) 650 mg PO Q6H PRN PRN Reason: Headache/Pain, Scale 1-10 Last Admin: 03/02/25 07:06 Dose: 650 mg Al Hydroxide/Mg Hydroxide (Magnesium Hydrox/Alum Hydrox 30 Ml Oral.Susp) 30 ml PO Q6H PRN PRN Reason: Heartburn/Nausea Last Admin: 01/30/25 14:06 Dose: 30 ml Artificial Tears (Artificial Tears 15 Ml Drops) 2 drop EYE-BOTH Q4H PRN PRN Reason: Dry Eyes Last Admin: 02/06/25 09:24 Dose: 2 drop Benzocaine (Benzocaine 20 % Oral Gel 14 Gm Tube) 1 appl MUCOUS MEM QID PRN; Protocol PRN Reason: Pain, Mild 1-3,fever,headache Last Admin: 03/02/25 07:06 Dose: 1 appl Calcium Carbonate/Cholecalciferol (Calcium + Vitamin D 250 Mg Tablet) 250 mg PO BIDWM VERONICA Last Admin: 03/04/25 09:08 Dose: 250 mg Diazepam (Diazepam 5 Mg Tablet) 5 mg PO Q4H PRN PRN Reason: agitation Last Admin: 02/18/25 08:48 Dose: 5 mg Diazepam (Diazepam 10 Mg/2 Ml Cartridge) 5 mg IM TID PRN PRN Reason: refuse [employer] and Valium Last Admin: 02/27/25 09:00 Dose: 5 mg Diazepam (Diazepam 5 Mg Tablet) 10 mg PO BEDTIME VERONICA Last Admin: 03/03/25 20:26 Dose: 10 mg Diazepam (Diazepam 2 Mg Tablet) 4 mg PO BID@0900,1500 VERONICA Last Admin: 03/04/25 09:07 Dose: 4 mg Docusate Sodium (Docusate Sodium 100 Mg Capsule) 100 mg PO BID PRN PRN Reason: Constipation Last Admin: 01/30/25 20:10 Dose: 100 mg Haloperidol Lactate (Haloperidol Lactate 5 Mg/Ml Vial) 5 mg IM TID PRN PRN Reason: refusal of scheduled seroquel Last Admin: 02/04/25 20:14 Dose: 5 mg Hydrocortisone (Hydrocortisone 2.5 % Rectal Cr 30 Gm Tube) 1 appl [place] DAILY PRN PRN Reason: hemrroids Last Admin: 01/26/25 14:57 Dose: 1 [address] [employer] Carbonate ([employer] Carbonate Er 300 Mg Tablet.Er) 300 mg PO BID VERONICA Last Admin: 03/04/25 09:08 Dose: 300 mg Magnesium Hydroxide (Milk Of Magnesia 30 Ml Oral.Susp) 30 ml PO DAILY PRN PRN Reason: Constipation Last Admin: 01/26/25 14:59 Dose: 30 ml Multivitamins/Vitamin C (Multivitamin Tablet) 1 tab PO DAILY VERONICA Last Admin: 03/04/25 09:07 Dose: 1 tab Nicotine (Nicotine 7 Mg Patch.Td24) 7 mg TRANSDERMA DAILY PRN PRN Reason: Nicotine craving Nicotine Polacrilex (Nicotine Polacrilex 2 Mg Gum) 4 mg BUCCAL Q2H PRN PRN Reason: Nicotine Cravings Last Admin: 02/21/25 17:26 Dose: 4 mg Polyethylene Glycol (Polyethylene Glycol 3350 17 Gm Powd.Pack) 17 gm PO DAILY PRN PRN Reason: constipation Prazosin HCl (Prazosin Hcl 1 Mg Capsule) 1 mg PO BEDTIME VERONICA; Protocol Last Admin: 03/03/25 20:27 Dose: 1 mg Propranolol HCl (Propranolol Hcl 10 Mg Tablet) 10 mg PO TID VERONICA; Protocol Last Admin: 03/04/25 09:08 Dose: 10 mg Quetiapine Fumarate (Quetiapine Fumarate 50 Mg Tablet) 50 mg PO BID@0900,1500 [facility] Last Admin: 03/04/25 09:08 Dose: 50 mg Quetiapine Fumarate (Quetiapine Fumarate 300 Mg Tablet) 300 mg PO BEDTIME VERONICA Last Admin: 03/03/25 20:27 Dose: 300 mg Allergies Allergies Allergy/AdvReac Type Severity Reaction Status Date / Time amphetamine (From Adderall) Allergy Severe psychosis/ Verified 02/13/25 22:40 Manic dextroamphetamine (From Allergy Severe psychosis/ Verified 02/13/25 22:40 Adderall) Manic olanzapine (From Zyprexa) AdvReac Rash Verified 12/31/24 18:41 Assessment & Plan Assessment & Plan (1) Psychosis: Status: Acute Code(s): F29 - Unspecified psychosis not due to a substance or known physiological condition Plan Ms. Sheridan is a 34 year-old woman who presents with s/s of psychosis, disorganized, some degree of paranoia. She had similar episode back in 2020. 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 I do suspect that there may be underlying psychiatric disorder that is triggered by amphetamine use but not necessarily caused by it. Further evaluation to clarify dx is needed. We discussed inpt level of care. We also discussed restarting risperidone 1mg po BID. low dose clonazepam. continue clonidine. 1. IPLOC 2. start risperidone 1mg po BID. Clonazepam 0.5mg po BID. 01/05: Continue current regimen and plans. 01/06: slept only 2 hours, disorganized, decompensated behaviors. unable to interact cogently. refusing risperidone, will offer seroquel instead. possible bipolar diathesis, T/C mood stabilizer. delirium also a possibility, as the mental status change since admission appears to be striking. 01/07: took seroquel 200 last night, slept 5.5 hours. more organized, linear, able to engage today. continue current mgmt. 01/08: refused seroquel last NOC, slept only 30 minutes. agitated, bizarre, disorganized today. commitment paperwork filed. 01/09: refused meds yesterday but got IMs due to behaviors (outbursts, touching peers, yelling, banging doors, pushed her sitter, climbing on tables and chairs. threatening to stab self with pens). more linear and engageable today, once again the day after having takenm medication. agrees to continue to take seroquel 200 mg QHS. 01/10: took seroquel last NOC and slept 4 hours overnight, but bizarre today. less agitation and intrusiveness than yesterday, but still bizarre and fairly intrusive. pt appears willing to take risperidone, will DC seroquel and return to dosing of risperidone 2 mg BID. took first dose this afternoon. court next monday. 01/11 very paranoid, fearful, taking medications 01/12 continue tx. 01/13: appears a bit more organized today than when not taking medications, although slow and processing poorly. declines to sign CV. commitment hearing tomorrow. 01/14: hearing continued until 01/24 for SINDY. add klonopin 0.5 BID ODT, change risperidone formulation to liquid (pt has been inducing vomiting repeatedly with toothbrush). hold toothbrush unless actively brushing teeth. continues interactive to some extent with MD today, but has been grabbing badges, touching others, and tried to vault into the nursing station in the past 24H. 01/15: IM medication after threatening to punch staff nurse midwife with intrusive and aggressive behaviors toward peers. pt did not take klonopin as ordered yesterday. DC klonopin and start VPA 500 BID. per staff, running. tried to make herself vomit after taking PRN. labile. ate her feces in the shower and tried to feed it to her 1:1. crawling under tables. tried to jump into nurses station x2. took her shirt off and swinging it around. did not sleep at all. slept at 7:30am. 01/16: refusing VPA, taking risperidone. napped after IMs yesterday. has been bizarre and labile since. slept only 2 hours overnight. continue current mgmt. 01/17: agitated, bizarre, and aggressive behaviors yesterday (punching and kicking beard, stripping off in milieu, attempting to intimidate staff, grabbing stress balls out of staff's hands). did take VPA this morning on its being offered a second time. more calm today. taking risperidone. 01/18: intermittently refusing VPA, seems to be taking risperidone. asks MD if he is alive, then proposes elbow bump. accusing staff of stealing her things (phone), calling mother and hand bender in the middle of the night. slept less than 4 hours. 01/19: more lucid today. concerned about risperidone weight gain. agrees to DC risperidone and try prolixin instead, starting at 2.5 BID. 01/20: very disorganized, bizarre, psychotic today. likely due to equivalent dosing of prolixin being given much lower than prior risperidone. as pt seems to be tolerating prolixin without issues, increase prolixin dosing from 2.5 BID to 5 BID. otherwise continue current mgmt. 01/21: less bizarre and disorganized, but still quite ill. variably compliant with medications. c/o leg pain, lowering self to floor; started cogentin 0.5 BID due to concern for dystonia. c/o nightmares, h/o prazosin with good effect. add prazosin 1 mg QHS as of tonight. 01/22: Patients states that she is good. She is scared of [place] herpes after having sex. She refused to participate in an interview with this provider, and walked away stating i don't need a provider. She was observed by this provider, pacing the [place]. Continue current treatment regimen. 01/23: disorganized and dangerous behaviors. voluntarily took IMs. court tomorrow. 01/24: remains disorganized. ran into staff member yesterday, postured and threatened other staff afterward. slept about 6.[address] afternoon. 01/25/25: Staff 5 6 hours with broken sleep. Compliant with medication with lots of encouragement from yesterday, refused her vitamins in the morning. CT scan was negative, she fell early in the morning, witness her head hit the wall the trying to put her pants on. Slightly improved in mood with medication compliant. VPA level is 52,1 low side. However patient not consistently take it every day. We will recheck. He is on section 8. Pending Wei's order. Less irritable, less racing. 01/26/25: Mostly compliant with medication, to 250/750 mg of Depakote scheduled at bedtime. Labile, restless, poor boundaries, sexually inappropriate behavior, mood is aggravated . Disorganized. Slightly improving but not much. She is better in terms of compliant with medications. 01/27: mostly compliant with meds. improved from last week, more organized and less labile today. agreement reached on medications, reinstate risperidone as primary antipsychotic Tx, remove request for mood stabilizers, remove ativan. DC prolixin, begin taper of VPA, restart risperidone 2 BID, add thorazine 100 and valium 10 at HS to encourage sleep. awaiting med order. 01/28: last evening was pushing, attempting to kick and bite staff, shoulder- checked peer, exposing genitalia to 1:1 staff. took meds last night and this morning. court order received today, reviewed, medications adjusted to comply with order. reportedly more linear today, but pt declined to meet with MD after brief psychotic interaction with MD. 01/29: dysregulated, agitated behaviors continue last night. calmer days. refused VPA this morning. continue VPA taper, decrease from 500 BID to 250 TID as of today. increase HS seroquel from 300 mg to 400 mg as of tonight and HS valium from 10 mg to 15 mg as of tonight for sleep and sylwia. 01/30: same pattern of calm days through mid-afternoon, then decompensation. add third scheduled dosing of risperidone in the middle of the day, schedule valium in the morning and at 3 pm, otherwise continue current mgmt. increase HS seroquel if pt does not sleep more than several hours tonight. continue VPA taper tomorrow. 01/31: calm, morning. severe akathisia eves, unable to sleep or remain still. slept only 2.5 hours. due to 4 mg risperidone daily being inadequate to treat Sx and 6 mg causing severe akathisia, will DC risperidone in favor of a less potent antipsychotic, seroquel. schedule seroquel 100/100/500. taper VPA to 250 BID as of tomorrow. propranolol 20 TID started last night for akathisia, will continue for now. 02/01: no change - monitor akathisia decrease on new regimen 02/02: nicotine patch taper to 7 mg; seems to be doing better with switch to Seroquel and augmentation with Propranolol; primary team may f/u with further discussion of behavioral plan 02/03: much improved from last week. calm, linear, logical, topical. slept 6 hours each the last 3 nights. c/o sedation. decrease daytime valium from 5 BID to 2 BID. decrease daytime seroquel from 100 BID to 75 BID. taper VPA from 250 BID to 250 QHS. 02/04: remains much improved. no overt MSE abnormalities. c/o sedation, decrease seroquel from 75 BID to 50 BID and from 500 QHS to 400 QHS. DC VPA entirely. otherwise continue current mgmt. 02/05: backsliding today. irritable, erratic, more disorganized, labile. stating her intent to stop taking medications, demanding discharge. continue current mgmt. 7/24: much improved today. calm, logical, cogent and topical. pt would like to taper off of valium (addicting) and onto a proper mood stabilizer. legal instructor notified. PR daytime valium. restart prazosin due to c/o nightmares. decrease propranolol from 20 TID to 10 TID (should no longer be necessary as off of medications likely to cause akathisia). DC daytime seroquel tomorrow. 02/07: similar conversation to yesterday. DC daytime seroquel. awaiting word from legal re adding lithium. otherwise continue current mgmt. 02/08: keeping to self. irritable edge. pt reports feeling overwhelmed d/t room change. medication compliant. focused on returning home. denies SI/HI/VH/AH. per nursing, slept 6 hours last night. continue current tx plan. 02/09: irritable edge. medication compliant. focused on returning home. intrusive during a peer's treatment; declined to walk away when asked by staff multiple times; poor insight and judgment. pt became upset after meeting with her mother; pt stated, my mom says its my behavior why I'm still here. I think they are keeping me here because I locked myself in that room . Valium decreased to 10mg PO bedtime. 02/10: irritable. medication compliant. Perseverative on discharge. Patient reports sleeping well last night. Appears calmer today. She reports visit with her mother when well. Denies SI/HI/VH/AH. Attending groups. Continue current treatment plan. 02/11/25: Irritable, irrational regarding why she is still being here. Poor insight and poor judgment. Not thinks she has bipolar. She only believes she has has ADHD and autism, therefore she does not need to be here and that no reason to keep her here longer. As a future, she does not think she going to continue taking medication after discharge per nursing. Racing thoughts. At times she is calm, able to attend groups, and some what appropriate. Have good visit with brother and mom yesterday. Not able to discuss for medication change due to agitated/irritable mood. 02/12/25: Been sleeping well, no issue with appetite, attended groups, have visit with mom. Both mom and patient the nurse believe that patient is not manic or having any bipolar features. They only believe that she has ADHD and autism. Mom advocate for patient to be discharged. Mom claims that the treatment team has not ever reach out to her. Both of the agree to have a family meeting in the future. We will leave message to the team to set it up. Patient has some mood swing, but overall, continued to improve with help of the medication. She wants to be off from Valium, but do not want any other medication change. Both Seroquel and Valium is on Muniz order. No other safety concerns. 02/13/25: Slept well, compliant with medications, refused nicotine patch on. Observed visible and attending groups, irritable at times, hyper focused on discharge as her normal baseline of everyday. Do not want any medication change. Reports gaining 28 lb since she got here. Nutrition consult placed. We will add Adderall on allergy list which make her psychotic. Patient to nursing put it in her allergy list. Some labile mood, pressured speech. 02/14: continue current tx plan. 02/15/25: Slept well, manage meal intake, portion size, healthier snacks to control her weight gain. Met with the dietitian today. She also ask staff to pronounce the list of healthy/happy food. Family brought in some healthy snack for her. She was mad being wakened up to get vital signs in the morning by nursing staff. Denies suicidal thoughts, denies hallucinations. She asked questions regarding diagnosis. Educate her regarding psychosis that she came with. Explained with her regarding medication she has been taking here, she will be discharged with, and then work with the outpatient psychiatrist to continue with Muniz orders, making any change if necessary. She is more receptive with the plan, more rationale when she is not in the bad mood. She appreciates the time I spent talking to her today. She attended groups, visible. No ADLs issues. Can be irritable at times. Refused her propranolol in the morning. She took multivitamins later on of the day after she refused. Change nicotine patch to p.r.n.. 02/16/25: Reported that she was angry, other than that she feels mood more stable today. Nursing staff contacted this provider reported that patient in the past was allowed using the head phone at night to cancel out the noise. Patient asked if she was allowed to use it again. Patient focused on healthy food, eating yogurt only in the morning. Family brought in more seeds instead of eating unhealthy food from hospital. She also was irritable as someone touching her clothes in the washer. She has a couple visits today. She feels ready to leave and stable enough to go home to community. She is looking forward to talk to her attending this week regarding discharge. Denies other safety concerns. She has been irritable at times, but able to control her anger. She said this is her baseline, and being in here is make her more irritable. Had phones use overnight order was discontinued per policy. 02/17: calm, logical, cooperative. appearing overly controlled, unnatural in doing so. medications plan at our last meeting resurrected - start lithium, taper seroquel and valium. pt states she is open to mood stabilizers. MD informs pt he believes she lacks capacity presently and will notify real estate associate attorney to communicate with pt's real estate associate attorney. hospital real estate associate attorney notified. continue current mgmt for now. 02/18: corresponding with real estate associate attorney re stipulated agreement. pt intrusive with peers and resistant to redirection by staff. with MD pt is calm and cooperative, but attempting to engage in argument justifying her intrusive behavior. continue current mgmt. slept well. 02/19/25: showered in the morning, reasonable, , slept for 6 hours I was up for snack , compliant with meds except Propranonol at 1500 yesterday. She asked if she can use electric razor to trim the pubic hair which was not allowed per safety and unit policy. Continue working healthy diet and snack. 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 No major behavior issues. Sometimes ask for stuff she knows they are not allowed. Continue with the plan. 02/20: refused seroquel last night, did not receive IM back-up. appears with bizarre smile today, believes she doesn't need medications and is ready to discharge. 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 plan for lithium in lieu of valium and seroquel, ideally, reviewed. pt appears to have very poor retention, as this plan has been discussed numerous times. pt was encouraged to discuss with her real estate associate attorney and was given her real estate associate attorney's contact information ([facility] number). 02/21: talking about not taking meds once discharged. refusing meds then taking them last second prior to IM administration. labile, irritable. very disorganized today, severely impaired cognitive performance. restart valium 5 and seroquel 75 BID at 0900, 1500. otherwise continue current mgmt. awaiting word from supervisor computer operations re stipulated agreement for mood stabilizers. 02/22: Continue current regimen and plans. Orajel ordered. 02/23: Continue current plans and regimen 02/24: more organized and less oppositional, labile, intrusive, impulsive than monday. willing to take lithium. per real estate associate attorney, we may have a stipulated agreement. continue current mgmt for now, hoping to start lithium GIRISH. 02/25/25: Amend the treatment plan to include mood stabilizer [employer] Carbonate as primary treatment at therapeutic blood levels. Organized at times but when she is more anxious, less rationale. She does not accept new add on [employer] on Wei's order that is effective today it is fake, you can keep it. I need to talk to my hand bender . why I need [employer]?I do not have bipolar . She believes she has autism and ADHD only. She asked inappropriate question such as if this provider knowing what JERSON and if this provider used it before. Patient asked to get her OP therapist to involve in decision making on meds. Prior to this conversation, she was calm, showing pictures of herself and family members that she has personal space for them on the wall. Some labile mood, underline irritable but no angry outburst. At some point, she states that Seroquel added on during daytime is helping with her mood and that I was not mad when she was waken up this morning. Denies SI/SIB/HI/AVH [employer] ER 600mg daily at HS for mood. With some labs ordered for basjovannane CMP, TSH, Free T4. 02/26/25 Slept for 8 hours, compliant with medications except lithium. Rumination, poor insight and judgment, asking inappropriate questions, thought processes not on treatment, racing, anxious, appears to be paranoid. The RN showed the new amended Wei order, she does not believe it is true and wanted fire her real estate associate attorney. HRO notified, met with patient. Continued to she is not bipolar, believes she has PTSD symptoms that causing her mood changes. Want this to talk to her outpatient therapist. We will arrange to make phone call for collateral. Change [employer] ER from 600mg at HS to BID with IM of 5mg Valium IM back up if refuse. 02/27/25: Slept for 8 hours, compliant with medications, except for lithium- received Valium IM backup. Continued to resist to mood stabilizer, poor judgment, poor insight, do not believe she has bipolar. Nursing staff reports she was rude, inappropriate with staff, asking inappropriate questions. Racing thoughts. Request information regarding lithium. Nursing staff pronounced the handout, she has not in hand. Side effects noted. We will contact Josy BLACKBURN therapist at [phone] per patient request as she believes that her therapist should be involved in the decision making regarding diagnosis. 02/28/25: Continued to improve in sleep. Medication compliant, except for lithium yesterday morning. She took the evening dose per nursing report. Nurse's also provide patient with information related to lithium. Patient request the current [facility] order. Given a copy. She finally wants to keep it as she has been referred to review. She requests take her off from Seroquel if this provider wants her to text lithium which is unreasonable as she requests to take her off of them. Not able to rationale with her about the medication plan. Slightly having some open and accepting lithium. At home she will compliant do well with the lithium. In the future when she got into therapeutic level targeting labile mood, we can taper down on Seroquel or taper down on Valium. At this current time, due to current mental status, she can not process the information, not register in her mind for medication plans at this time. She does not trust the provider, she does not believe she has bipolar which is hard to convince her to take lithium. Labile mood, irritable and can be rude. Monitor over weakens for [employer] and other medication compliant. IM back up available per Flavio' order. Attempted to call Josy [facility] therapist at [phone]. Left voices message with front desk administrator. Waiting for a call back. 03/01: calm, cooperative, logical. still processing difficulties, but improved from last time we met. taking lithium for 2 days now, slept 8 hours overnight. decrease seroquel 75/75/400 to 50/50/300 and valium 5 BID to 4 BID. otherwise continue current mgmt. 03/02: declined interview for phone call. per staff, taking meds, accusing staff of trying to change her personality. 03/03/25: Patient slept for 7 hours, compliant with medication p.o Included lithium. Some labile mood, irritable, making accusation regarding what provider told her during assessment. She reported that she has has been calling outpatient therapist repeatedly but has not received a call back. Patient was informed that this provider also called, waiting for a call back as well. She asked why can not she take medication like this with the outpatient provider. Explained to her that she needs to be more stable before we discharge her, as now per her perception, she may feel that she is ready to go home, but other people in the treatment team do not think she is ready yet. Per nursing patient was better over the weekends, less provocative. Think we are changing her personality. We will check the lithium level on Monday morning. Been taking consistently the past 3 and half days. 03/04/25: Patient slept well, compliant with medication. Continue calling outpatient therapist herself. She has not hearing back from them. She reported that she wants to go home, therefore she will do whatever she needs to do to get home. 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 Explained to her that we will get the level tomorrow, level coming back subtherapeutic, we will increase dose of the lithium. In the meantime, we will consider to lower Seroquel down, mood is more stable. She is less labile today, attended to some groups. No safety concern. Constricted affect. Less irritable. [employer] level for tomorrow morning. Patient educated on: medication risk/benefits and therapeutic strategies Informed Consent: understands and further education needed Reason for continued inpatient stay Substantial Risk for: med/psych decompensation Time Spent With Patient Time: Total time managing care of this patient today ____ minutes.
[2025-03-04 14:42] VITALS: BP 115/69; PULSE 96
[2025-03-04 20:00] VITALS: BP 123/60; PULSE 95; RESP 16; TEMP 36.8; O2SAT 96
[2025-03-04 20:35] VITALS: BP 123/60; PULSE 95
[2025-03-05 08:00] VITALS: BP 116/78; PULSE 97; RESP 16; TEMP 36.7; O2SAT 99
[2025-03-05 08:31] LABS: Lithium 0.29 mmol/L (0.60-1.20)
[2025-03-05 08:34] VITALS: BP 116/78; PULSE 97
[2025-03-05] MEDS: Calcium + Vitamin D 250 MG TABLET PO ×2 (08:34→17:17)
[2025-03-05 15:16] VITALS: BP 108/63; PULSE 87
--- NOTE | 2025-03-05 18:48 | HO.PSYCHPN ---
Subjective Subjective Date of Service: 03/05/25 Reason For Visit: Crisis Subjective Notes: Raymond Warning and Section 8 Healthcare Proxy: No Guardianship: No Medical Problems Affecting Mental Status: No Interim History: Medical record and nursing notes reviewed; case discussed during rounds with team/nursing staff, and met with patient for supportive therapy/psychoeducation, as well as medication management. Patient slept for 8 hours, was medication compliant. No IM backup need to be used. She has questions related to what she have to do and what is next step to get discharge. Explained the plan that we are waiting for the lithium level. If it is sub therapeutic, we will titrate until we get the therapeutic level. When she is more stable, we will plan to discharge her to outpatient provider in which she can continue taking medications. She appeared to be less labile, reasonable, more logical, able to take in information. No angry outbursts, attend his groups except when she has visiors. Continue working on healthy snack and diet. Medication Compliance: Yes Side effects from medications: No Attending Groups: Yes Review of Systems Acute medical concerns: No Medical Review of Systems: unchanged Review of Systems Review of Systems Constitutional: Denies fatigue and Denies fever(s) Cardiovascular: Denies chest pain and Denies dyspnea Respiratory: Denies dyspnea Gastrointestinal: Denies abdominal pain Psychiatric: denies suicidal ideation Endocrine: Denies fatigue Yes all other systems are reviewed and are negative Mental Status Exam Mental Status Exam Narrative: Appearance: adequately dressed and groomed Behavior: no PMA/PMR. Speech: nml amount, nml loudness. nml latency. TP: organized, linear but can be irrational TC: Took medication PO, not perserverative on Dx or bipolar. Mood: good Affect: calm, constricted AH/VH: none expressed Insight/judgment: some mild improvement Memory/cog: alert, impaired. Diagnostics Vital Signs (24Hr): Vital Signs - 24 hr 03/04/25 20:00 03/04/25 20:35 03/04/25 20:35 Temperature 98.3 F Pulse Rate 95 95 Respiratory Rate 16 Blood Pressure 123/60 123/60 123/60 Pulse Oximetry 96 Oxygen Delivery Method Room Air 03/05/25 08:00 03/05/25 08:34 03/05/25 15:16 Temperature 98.0 F Pulse Rate 97 97 87 Respiratory Rate 16 Blood Pressure 116/78 116/78 108/63 Pulse Oximetry 99 Oxygen Delivery Method Room Air BMI result Body Mass Index 35.4 Labs 01/09/25 16:36 02/26/25 08:32 Labs: Laboratory Results - last 48 hr 03/05/25 07:55 Tropic 0.29 L Imaging Radiology Impressions: ITS Impressions Hand X-Ray 01/16/25 11:30 IMPRESSION: Unremarkable right hand Electronically signed by: Casa Rush MD 01/16/2025 11:46 AM EDT RP Hand X-Ray 01/29/25 07:30 IMPRESSION: Unremarkable examination of the right hand. Electronically signed by: Obdulio Tolbert MD 01/30/2025 07:56 AM EDT RP Medications Medications Current Medications Acetaminophen (Acetaminophen 325 Mg Tablet) 650 mg PO Q6H PRN PRN Reason: Headache/Pain, Scale 1-10 Last Admin: 03/02/25 07:06 Dose: 650 mg Al Hydroxide/Mg Hydroxide (Magnesium Hydrox/Alum Hydrox 30 Ml Oral.Susp) 30 ml PO Q6H PRN PRN Reason: Heartburn/Nausea Last Admin: 01/30/25 14:06 Dose: 30 ml Artificial Tears (Artificial Tears 15 Ml Drops) 2 drop EYE-BOTH Q4H PRN PRN Reason: Dry Eyes Last Admin: 02/06/25 09:24 Dose: 2 drop Benzocaine (Benzocaine 20 % Oral Gel 14 Gm Tube) 1 appl MUCOUS MEM QID PRN; Protocol PRN Reason: Pain, Mild 1-3,fever,headache Last Admin: 03/02/25 07:06 Dose: 1 appl Calcium Carbonate/Cholecalciferol (Calcium + Vitamin D 250 Mg Tablet) 250 mg PO BIDWM VERONICA Last Admin: 03/05/25 17:17 Dose: 250 mg Diazepam (Diazepam 5 Mg Tablet) 5 mg PO Q4H PRN PRN Reason: agitation Last Admin: 02/18/25 08:48 Dose: 5 mg Diazepam (Diazepam 10 Mg/2 Ml Cartridge) 5 mg IM TID PRN PRN Reason: refuse Tropic and Valium Last Admin: 02/27/25 09:00 Dose: 5 mg Diazepam (Diazepam 5 Mg Tablet) 10 mg PO BEDTIME VERONICA Last Admin: 03/04/25 20:34 Dose: 10 mg Diazepam (Diazepam 2 Mg Tablet) 4 mg PO BID@0900,1500 [facility] Last Admin: 03/05/25 15:15 Dose: 4 mg Docusate Sodium (Docusate Sodium 100 Mg Capsule) 100 mg PO BID PRN PRN Reason: Constipation Last Admin: 01/30/25 20:10 Dose: 100 mg Haloperidol Lactate (Haloperidol Lactate 5 Mg/Ml Vial) 5 mg IM TID PRN PRN Reason: refusal of scheduled seroquel Last Admin: 02/04/25 20:14 Dose: 5 mg Hydrocortisone (Hydrocortisone 2.5 % Rectal Cr 30 Gm Tube) 1 appl WA DAILY PRN PRN Reason: hemrroids Last Admin: 01/26/25 14:57 Dose: 1 appl Tropic Carbonate (Tropic Carbonate Er 300 Mg Tablet.Er) 300 mg PO BID VERONICA Last Admin: 03/05/25 08:34 Dose: 300 mg Tropic Carbonate (Tropic Carbonate Er 300 Mg Tablet.Er) 300 mg PO BEDTIME VERONICA Magnesium Hydroxide (Milk Of Magnesia 30 Ml Oral.Susp) 30 ml PO DAILY PRN PRN Reason: Constipation Last Admin: 01/26/25 14:59 Dose: 30 ml Multivitamins/Vitamin C (Multivitamin Tablet) 1 tab PO DAILY VERONICA Last Admin: 03/05/25 08:34 Dose: 1 tab Nicotine (Nicotine 7 Mg Patch.Td24) 7 mg TRANSDERMA DAILY PRN PRN Reason: Nicotine craving Nicotine Polacrilex (Nicotine Polacrilex 2 Mg Gum) 4 mg BUCCAL Q2H PRN PRN Reason: Nicotine Cravings Last Admin: 02/21/25 17:26 Dose: 4 mg Polyethylene Glycol (Polyethylene Glycol 3350 17 Gm Powd.Pack) 17 gm PO DAILY PRN PRN Reason: constipation Prazosin HCl (Prazosin Hcl 1 Mg Capsule) 1 mg PO BEDTIME VERONICA; Protocol Last Admin: 03/04/25 20:35 Dose: 1 mg Propranolol HCl (Propranolol Hcl 10 Mg Tablet) 10 mg PO TID VERONICA; Protocol Last Admin: 03/05/25 15:16 Dose: 10 mg Quetiapine Fumarate (Quetiapine Fumarate 50 Mg Tablet) 50 mg PO BID@0900,1500 VERONICA Last Admin: 03/05/25 15:15 Dose: 50 mg Quetiapine Fumarate (Quetiapine Fumarate 300 Mg Tablet) 300 mg PO BEDTIME VERONICA Last Admin: 03/04/25 20:35 Dose: 300 mg Allergies Allergies Allergy/AdvReac Type Severity Reaction Status Date / Time amphetamine (From Adderall) Allergy Severe psychosis/ Verified 02/13/25 22:40 Manic dextroamphetamine (From Allergy Severe psychosis/ Verified 02/13/25 22:40 Adderall) Manic olanzapine (From Zyprexa) AdvReac Rash Verified 12/31/24 18:41 Assessment & Plan Assessment & Plan (1) Psychosis: Status: Acute Code(s): F29 - Unspecified psychosis not due to a substance or known physiological condition Plan Ms. Sheridan is a 34 year-old woman who presents with s/s of psychosis, disorganized, some degree of paranoia. She had similar episode back in 2020. 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 I do suspect that there may be underlying psychiatric disorder that is triggered by amphetamine use but not necessarily caused by it. Further evaluation to clarify dx is needed. We discussed inpt level of care. We also discussed restarting risperidone 1mg po BID. low dose clonazepam. continue clonidine. 1. IPLOC 2. start risperidone 1mg po BID. Clonazepam 0.5mg po BID. 01/05: Continue current regimen and plans. 01/06: slept only 2 hours, disorganized, decompensated behaviors. unable to interact cogently. refusing risperidone, will offer seroquel instead. possible bipolar diathesis, T/C mood stabilizer. delirium also a possibility, as the mental status change since admission appears to be striking. 01/07: took seroquel 200 last night, slept 5.5 hours. more organized, linear, able to engage today. continue current mgmt. 01/08: refused seroquel last NOC, slept only 30 minutes. agitated, bizarre, disorganized today. commitment paperwork filed. 01/09: refused meds yesterday but got IMs due to behaviors (outbursts, touching peers, yelling, banging doors, pushed her sitter, climbing on tables and chairs. threatening to stab self with pens). more linear and engageable today, once again the day after having takenm medication. agrees to continue to take seroquel 200 mg QHS. 01/10: took seroquel last NOC and slept 4 hours overnight, but bizarre today. less agitation and intrusiveness than yesterday, but still bizarre and fairly intrusive. pt appears willing to take risperidone, will DC seroquel and return to dosing of risperidone 2 mg BID. took first dose this afternoon. court next monday. 01/11 very paranoid, fearful, taking medications 01/12 continue tx. 01/13: appears a bit more organized today than when not taking medications, although slow and processing poorly. declines to sign CV. commitment hearing tomorrow. 01/14: hearing continued until 01/24 for SINDY. add klonopin 0.5 BID ODT, change risperidone formulation to liquid (pt has been inducing vomiting repeatedly with toothbrush). hold toothbrush unless actively brushing teeth. continues interactive to some extent with MD today, but has been grabbing badges, touching others, and tried to vault into the nursing station in the past 24H. 01/15: IM medication after threatening to punch staff electronic warfare officer with intrusive and aggressive behaviors toward peers. pt did not take klonopin as ordered yesterday. DC klonopin and start VPA 500 BID. per staff, running. tried to make herself vomit after taking PRN. labile. ate her feces in the shower and tried to feed it to her 1:1. crawling under tables. tried to jump into nurses station x2. took her shirt off and swinging it around. did not sleep at all. slept at 7:30am. 01/16: refusing VPA, taking risperidone. napped after IMs yesterday. has been bizarre and labile since. slept only 2 hours overnight. continue current mgmt. 01/17: agitated, bizarre, and aggressive behaviors yesterday (punching and kicking beard, stripping off in milieu, attempting to intimidate staff, grabbing stress balls out of staff's hands). did take VPA this morning on its being offered a second time. more calm today. taking risperidone. 01/18: intermittently refusing VPA, seems to be taking risperidone. asks MD if he is alive, then proposes elbow bump. accusing staff of stealing her things (phone), calling mother and lawyer real estate in the middle of the night. slept less than 4 hours. 01/19: more lucid today. concerned about risperidone weight gain. agrees to DC risperidone and try prolixin instead, starting at 2.5 BID. 01/20: very disorganized, bizarre, psychotic today. likely due to equivalent dosing of prolixin being given much lower than prior risperidone. as pt seems to be tolerating prolixin without issues, increase prolixin dosing from 2.5 BID to 5 BID. otherwise continue current mgmt. 01/21: less bizarre and disorganized, but still quite ill. variably compliant with medications. c/o leg pain, lowering self to floor; started cogentin 0.5 BID due to concern for dystonia. c/o nightmares, h/o prazosin with good effect. add prazosin 1 mg QHS as of tonight. 01/22: Patients states that she is good. She is scared of [place] herpes after having sex. She refused to participate in an interview with this provider, and walked away stating i don't need a provider. She was observed by this provider, pacing the [place]. Continue current treatment regimen. 01/23: disorganized and dangerous behaviors. voluntarily took IMs. court tomorrow. 01/24: remains disorganized. ran into staff member yesterday, postured and threatened other staff afterward. slept about 6.[address] this afternoon. 01/25/25: Staff 5 6 hours with broken sleep. Compliant with medication with lots of encouragement from yesterday, refused her vitamins in the morning. CT scan was negative, she fell early in the morning, witness her head hit the wall the trying to put her pants on. Slightly improved in mood with medication compliant. VPA level is 52,1 low side. However patient not consistently take it every day. We will recheck. He is on section 8. Pending Wei's order. Less irritable, less racing. 01/26/25: Mostly compliant with medication, to 250/750 mg of Depakote scheduled at bedtime. Labile, restless, poor boundaries, sexually inappropriate behavior, mood is aggravated . Disorganized. Slightly improving but not much. She is better in terms of compliant with medications. 01/27: mostly compliant with meds. improved from last week, more organized and less labile today. agreement reached on medications, reinstate risperidone as primary antipsychotic Tx, remove request for mood stabilizers, remove ativan. DC prolixin, begin taper of VPA, restart risperidone 2 BID, add thorazine 100 and valium 10 at HS to encourage sleep. awaiting med order. 01/28: last evening was pushing, attempting to kick and bite staff, shoulder-checked peer, exposing genitalia to 1:1 staff. took meds last night and this morning. court order received today, reviewed, medications adjusted to comply with order. reportedly more linear today, but pt declined to meet with MD after brief psychotic interaction with MD. 01/29: dysregulated, agitated behaviors continue last night. calmer days. refused VPA this morning. continue VPA taper, decrease from 500 BID to 250 TID as of today. increase HS seroquel from 300 mg to 400 mg as of tonight and HS valium from 10 mg to 15 mg as of tonight for sleep and sylwia. 01/30: same pattern of calm days through mid-afternoon, then decompensation. add third scheduled dosing of risperidone in the middle of the day, schedule valium in the morning and at 3 pm, otherwise continue current mgmt. increase HS seroquel if pt does not sleep more than several hours tonight. continue VPA taper tomorrow. 01/31: calm, morning. severe akathisia eves, unable to sleep or remain still. slept only 2.5 hours. due to 4 mg risperidone daily being inadequate to treat Sx and 6 mg causing severe akathisia, will DC risperidone in favor of a less potent antipsychotic, seroquel. schedule seroquel 100/100/500. taper VPA to 250 BID as of tomorrow. propranolol 20 TID started last night for akathisia, will continue for now. 02/01: no change - monitor akathisia decrease on new regimen 02/02: nicotine patch taper to 7 mg; seems to be doing better with switch to Seroquel and augmentation with Propranolol; primary team may f/u with further discussion of behavioral plan 02/03: much improved from last week. calm, linear, logical, topical. slept 6 hours each the last 3 nights. c/o sedation. decrease daytime valium from 5 BID to 2 BID. decrease daytime seroquel from 100 BID to 75 BID. taper VPA from 250 BID to 250 QHS. 02/04: remains much improved. no overt MSE abnormalities. c/o sedation, decrease seroquel from 75 BID to 50 BID and from 500 QHS to 400 QHS. DC VPA entirely. otherwise continue current mgmt. 02/05: backsliding today. irritable, erratic, more disorganized, labile. stating her intent to stop taking medications, demanding discharge. continue current mgmt. 02/06: much improved today. calm, logical, cogent and topical. pt would like to taper off of valium (addicting) and onto a proper mood stabilizer. legal support assistant notified. AK daytime valium. restart prazosin due to c/o nightmares. decrease propranolol from 20 TID to 10 TID (should no longer be necessary as off of medications likely to cause akathisia). AK daytime seroquel tomorrow. 02/07: similar conversation to yesterday. DC daytime seroquel. awaiting word from legal re adding lithium. otherwise continue current mgmt. 02/08: keeping to self. irritable edge. pt reports feeling overwhelmed d/t room change. medication compliant. focused on returning home. denies SI/HI/VH/AH. per nursing, slept 6 hours last night. continue current tx plan. 02/09: irritable edge. medication compliant. focused on returning home. intrusive during a peer's treatment; declined to walk away when asked by staff multiple times; poor insight and judgment. pt became upset after meeting with her mother; pt stated, my mom says its my behavior why I'm still here. I think they are keeping me here because I locked myself in that room . Valium decreased to 10mg PO bedtime. 02/10: irritable. medication compliant. Perseverative on discharge. Patient reports sleeping well last night. Appears calmer today. She reports visit with her mother when well. Denies SI/HI/VH/AH. Attending groups. Continue current treatment plan. 02/11/25: Irritable, irrational regarding why she is still being here. Poor insight and poor judgment. Not thinks she has bipolar. She only believes she has has ADHD and autism, therefore she does not need to be here and that no reason to keep her here longer. As a future, she does not think she going to continue taking medication after discharge per nursing. Racing thoughts. At times she is calm, able to attend groups, and some what appropriate. Have good visit with brother and mom yesterday. Not able to discuss for medication change due to agitated/irritable mood. 02/12/25: Been sleeping well, no issue with appetite, attended groups, have visit with mom. Both mom and patient the nurse believe that patient is not manic or having any bipolar features. They only believe that she has ADHD and autism. Mom advocate for patient to be discharged. Mom claims that the treatment team has not ever reach out to her. Both of the agree to have a family meeting in the future. We will leave message to the team to set it up. Patient has some mood swing, but overall, continued to improve with help of the medication. She wants to be off from Valium, but do not want any other medication change. Both Seroquel and Valium is on [facility] order. No other safety concerns. 02/13/25: Slept well, compliant with medications, refused nicotine patch on. Observed visible and attending groups, irritable at times, hyper focused on discharge as her normal baseline of everyday. Do not want any medication change. Reports gaining 28 lb since she got here. Nutrition consult placed. We will add Adderall on allergy list which make her psychotic. Patient to nursing put it in her allergy list. Some labile mood, pressured speech. 02/14: continue current tx plan. 02/15/25: Slept well, manage meal intake, portion size, healthier snacks to control her weight gain. Met with the dietitian today. She also ask staff to pronounce the list of healthy/happy food. Family brought in some healthy snack for her. She was mad being wakened up to get vital signs in the morning by nursing staff. Denies suicidal thoughts, denies hallucinations. She asked questions regarding diagnosis. Educate her regarding psychosis that she came with. Explained with her regarding medication she has been taking here, she will be discharged with, and then work with the outpatient psychiatrist to continue with [facility] orders, making any change if necessary. She is more receptive with the plan, more rationale when she is not in the bad mood. She appreciates the time I spent talking to her today. She attended groups, visible. No ADLs issues. Can be irritable at times. Refused her propranolol in the morning. She took multivitamins later on of the day after she refused. Change nicotine patch to p.r.n.. 02/16/25: Reported that she was angry, other than that she feels mood more stable today. Nursing staff contacted this provider reported that patient in the past was allowed using the head phone at night to cancel out the noise. Patient asked if she was allowed to use it again. Patient focused on healthy food, eating yogurt only in the morning. Family brought in more seeds instead of eating unhealthy food from hospital. She also was irritable as someone touching her clothes in the washer. She has a couple visits today. She feels ready to leave and stable enough to go home to community. She is looking forward to talk to her attending this week regarding discharge. Denies other safety concerns. She has been irritable at times, but able to control her anger. She said this is her baseline, and being in here is make her more irritable. Had phones use overnight order was discontinued per policy. 02/17: calm, logical, cooperative. appearing overly controlled, unnatural in doing so. medications plan at our last meeting resurrected - start lithium, taper seroquel and valium. pt states she is open to mood stabilizers. MD informs pt he believes she lacks capacity presently and will notify banking attorney to communicate with pt's banking attorney. hospital banking attorney notified. continue current mgmt for now. 02/18: corresponding with banking attorney re stipulated agreement. pt intrusive with peers and resistant to redirection by staff. with MD pt is calm and cooperative, but attempting to engage in argument justifying her intrusive behavior. continue current mgmt. slept well. 02/19/25: showered in the morning, reasonable, , slept for 6 hours I was up for snack , compliant with meds except Propranonol at 1500 yesterday. She asked if she can use electric razor to trim the pubic hair which was not allowed per safety and unit policy. Continue working healthy diet and snack. 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 No major behavior issues. Sometimes ask for stuff she knows they are not allowed. Continue with the plan. 02/20: refused seroquel last night, did not receive IM back-up. appears with bizarre smile today, believes she doesn't need medications and is ready to discharge. 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 plan for lithium in lieu of valium and seroquel, ideally, reviewed. pt appears to have very poor retention, as this plan has been discussed numerous times. pt was encouraged to discuss with her banking attorney and was given her banking attorney's contact information ([facility] number). 02/21: talking about not taking meds once discharged. refusing meds then taking them last second prior to IM administration. labile, irritable. very disorganized today, severely impaired cognitive performance. restart valium 5 and seroquel 75 BID at 0900, 1500. otherwise continue current mgmt. awaiting word from assistant chief engineer re stipulated agreement for mood stabilizers. 02/22: Continue current regimen and plans. Orajel ordered. 02/23: Continue current plans and regimen 02/24: more organized and less oppositional, labile, intrusive, impulsive than monday. willing to take lithium. per banking attorney, we may have a stipulated agreement. continue current mgmt for now, hoping to start lithium GIRISH. 02/25/25: Amend the treatment plan to include mood stabilizer Tropic Carbonate as primary treatment at therapeutic blood levels. Organized at times but when she is more anxious, less rationale. She does not accept new add on Tropic on Wei's order that is effective today it is fake, you can keep it. I need to talk to my lawyer real estate . why I need Tropic?I do not have bipolar . She believes she has autism and ADHD only. She asked inappropriate question such as if this provider knowing what JERSON and if this provider used it before. Patient asked to get her OP therapist to involve in decision making on meds. Prior to this conversation, she was calm, showing pictures of herself and family members that she has personal space for them on the wall. Some labile mood, underline irritable but no angry outburst. At some point, she states that Seroquel added on during daytime is helping with her mood and that I was not mad when she was waken up this morning. Denies SI/SIB/HI/AVH Tropic ER 600mg daily at HS for mood. With some labs ordered for lolita CMP, TSH, Free T4. 02/26/25 Slept for 8 hours, compliant with medications except lithium. Rumination, poor insight and judgment, asking inappropriate questions, thought processes not on treatment, racing, anxious, appears to be paranoid. The RN showed the new amended Wei order, she does not believe it is true and wanted fire her banking attorney. HRO notified, met with patient. Continued to she is not bipolar, believes she has PTSD symptoms that causing her mood changes. Want this to talk to her outpatient therapist. We will arrange to make phone call for collateral. Change Tropic ER from 600mg at HS to BID with IM of 5mg Valium IM back up if refuse. 02/27/25: Slept for 8 hours, compliant with medications, except for lithium-received Valium IM backup. Continued to resist to mood stabilizer, poor judgment, poor insight, do not believe she has bipolar. Nursing staff reports she was rude, inappropriate with staff, asking inappropriate questions. Racing thoughts. Request information regarding lithium. Nursing staff pronounced the handout, she has not in hand. Side effects noted. We will contact Josy Franklin- [facility] therapist at [phone] per patient request as she believes that her therapist should be involved in the decision making regarding diagnosis. 02/28/25: Continued to improve in sleep. Medication compliant, except for lithium yesterday morning. She took the evening dose per nursing report. Nurse's also provide patient with information related to lithium. Patient request the current [facility] order. Given a copy. She finally wants to keep it as she has been referred to review. She requests take her off from Seroquel if this provider wants her to text lithium which is unreasonable as she requests to take her off of them. Not able to rationale with her about the medication plan. Slightly having some open and accepting lithium. At home she will compliant do well with the lithium. In the future when she got into therapeutic level targeting labile mood, we can taper down on Seroquel or taper down on Valium. At this current time, due to current mental status, she can not process the information, not register in her mind for medication plans at this time. She does not trust the provider, she does not believe she has bipolar which is hard to convince her to take lithium. Labile mood, irritable and can be rude. Monitor over weakens for Tropic and other medication compliant. IM back up available per Flavio' order. Attempted to call Josy BLACK[facility] therapist at [phone]. Left voices message with director of front office. Waiting for a call back. 03/01: calm, cooperative, logical. still processing difficulties, but improved from last time we met. taking lithium for 2 days now, slept 8 hours overnight. decrease seroquel 75/75/400 to 50/50/300 and valium 5 BID to 4 BID. otherwise continue current mgmt. 03/02: declined interview for phone call. per staff, taking meds, accusing staff of trying to change her personality. 03/03/25: Patient slept for 7 hours, compliant with medication p.o Included lithium. Some labile mood, irritable, making accusation regarding what provider told her during assessment. She reported that she has has been calling outpatient therapist repeatedly but has not received a call back. Patient was informed that this provider also called, waiting for a call back as well. She asked why can not she take medication like this with the outpatient provider. Explained to her that she needs to be more stable before we discharge her, as now per her perception, she may feel that she is ready to go home, but other people in the treatment team do not think she is ready yet. Per nursing patient was better over the weekends, less provocative. Think we are changing her personality. We will check the lithium level on Monday morning. Been taking consistently the past 3 and half days. 03/04/25: Patient slept well, compliant with medication. Continue calling outpatient therapist herself. She has not hearing back from them. She reported that she wants to go home, therefore she will do whatever she needs to do to get home. 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 Explained to her that we will get the level tomorrow, level coming back subtherapeutic, we will increase dose of the lithium. In the meantime, we will consider to lower Seroquel down, mood is more stable. She is less labile today, attended to some groups. No safety concern. Constricted affect. Less irritable. Tropic level for tomorrow morning. 03/05/25: Patient slept for 8 hours, was medication compliant. No IM backup need to be used. She has questions related to what she have to do and what is next step to get discharge. Explained the plan that we are waiting for the lithium level. If it is sub therapeutic, we will titrate until we get the therapeutic level. When she is more stable, we will plan to discharge her to outpatient provider in which she can continue taking medications. She appeared to be less labile, reasonable, more logical, able to take in information. No angry outbursts, attend his groups except when she has visiors. Continue working on healthy snack and diet. Tropic level is 0.29; subtherapeutic. Increase Tropic up to 900mg daily in divided dose. Recheck in 5 days Patient educated on: diagnosis, medication risk/benefits and therapeutic strategies Informed Consent: understands and further education needed Reason for continued inpatient stay Substantial Risk for: med/psych decompensation Time Spent With Patient Time: Total time managing care of this patient today ____ minutes.
[2025-03-05 19:25] VITALS: BP 128/85; PULSE 101; RESP 16; TEMP 36.9; O2SAT 97
[2025-03-05 21:19] VITALS: BP 118/65; PULSE 89
[2025-03-05] MEDS: Benzocaine 20 % Oral Gel 14 GM TUBE 1 APPL MUCOUS MEM (21:25)
[2025-03-06 07:00] VITALS: BMI 25.9
[2025-03-06 08:45] VITALS: BP 138/62; PULSE 108; RESP 18; TEMP 36.3; O2SAT 98
[2025-03-06 08:57] VITALS: BP 138/62; PULSE 108
[2025-03-06] MEDS: Benzocaine 20 % Oral Gel 14 GM TUBE 1 APPL MUCOUS MEM ×2 (08:57→22:10)
[2025-03-06] MEDS: Calcium + Vitamin D 250 MG TABLET PO ×2 (08:57→16:04)
--- NOTE | 2025-03-06 09:36 | P.PNPSI_ITS ---
Subjective Subjective Date of Service: 03/06/25 Reason For Visit: Crisis Subjective Notes: [facility]iz Order and Section 8 Healthcare Proxy: No Guardianship: No Medical Problems Affecting Mental Status: No Interim History: Medical record and nursing notes reviewed; case discussed during rounds with team/nursing staff, and met with patient for supportive therapy/psychoeducation, as well as medication management. Patient slept for 7 hours, was medication compliant. Denies side effects. She is aware of the lithium change yesterday, and asked what the plan from now on. She agrees with the plan of lithium level in the next 5 days, and can be having some other medication adjusted. However she said she wants to leave everything the same like it is now when I was talking to her regarding benzo taper down. We will leave the same dose of benzo and Seroquel. We will revisit to see if the patient have thoughts of wanting to taper down on benzo as she is more stable. I will leave it there the way it is now so that she can have some control over her treatment. Reports to nursing that she feel a bit anxious and depressed. No argumentative, much less labile, more red rational and logical. Pacing the [place] to get steps in. Intermittently attended groups, no behavior issues. Most likely to be discharged late next week. Medication Compliance: Yes Side effects from medications: No Attending Groups: Intermittent Review of Systems Acute medical concerns: No Medical Review of Systems: unchanged Review of Systems Review of Systems Constitutional: Denies fatigue and Denies fever(s) Cardiovascular: Denies chest pain and Denies dyspnea Respiratory: Denies dyspnea Gastrointestinal: Denies abdominal pain Psychiatric: denies suicidal ideation Endocrine: Denies fatigue Yes all other systems are reviewed and are negative Mental Status Exam Mental Status Exam Narrative: Appearance: adequately dressed and groomed Behavior: no PMA/PMR. Speech: nml amount, nml loudness. nml latency. TP: organized, linear. logical TC: Took medication PO, not perserverative on Dx or bipolar. Mood: good Affect: calm, constricted AH/VH: none expressed Insight/judgment: some mild improvement Memory/cog: alert, impaired. Diagnostics Vital Signs (24Hr): Vital Signs - 24 hr 03/05/25 15:16 03/05/25 19:25 03/05/25 21:19 Temperature 98.4 F Pulse Rate 87 101 H 89 Respiratory Rate 16 Blood Pressure 108/63 128/85 118/65 Pulse Oximetry 97 Oxygen Delivery Method Room Air 03/06/25 08:57 Temperature Pulse Rate 108 H Respiratory Rate Blood Pressure 138/62 Pulse Oximetry Oxygen Delivery Method BMI result Body Mass Index 25.9 Labs 01/09/25 16:36 02/26/25 08:32 Labs: Laboratory Results - last 48 hr 03/05/25 07:55 [place] 0.29 L Imaging Radiology Impressions: ITS Impressions Hand X-Ray 01/16/25 11:30 IMPRESSION: Unremarkable right hand Electronically signed by: Casa Rush MD 01/16/2025 11:46 AM EDT RP Hand X-Ray 01/29/25 07:30 IMPRESSION: Unremarkable examination of the right hand. Electronically signed by: Obdulio Tolbert MD 01/30/2025 07:56 AM EDT RP Medications Medications Current Medications Acetaminophen (Acetaminophen 325 Mg Tablet) 650 mg PO Q6H PRN PRN Reason: Headache/Pain, Scale 1-10 Last Admin: 03/06/25 08:55 Dose: 650 mg Al Hydroxide/Mg Hydroxide (Magnesium Hydrox/Alum Hydrox 30 Ml Oral.Susp) 30 ml PO Q6H PRN PRN Reason: Heartburn/Nausea Last Admin: 01/30/25 14:06 Dose: 30 ml Artificial Tears (Artificial Tears 15 Ml Drops) 2 drop EYE-BOTH Q4H PRN PRN Reason: Dry Eyes Last Admin: 02/06/25 09:24 Dose: 2 drop Benzocaine (Benzocaine 20 % Oral Gel 14 Gm Tube) 1 appl MUCOUS MEM QID PRN; Protocol PRN Reason: Pain, Mild 1-3,fever,headache Last Admin: 03/06/25 08:57 Dose: 1 appl Calcium Carbonate/Cholecalciferol (Calcium + Vitamin D 250 Mg Tablet) 250 mg PO BIDWM VERONICA Last Admin: 03/06/25 08:57 Dose: 250 mg Diazepam (Diazepam 5 Mg Tablet) 5 mg PO Q4H PRN PRN Reason: agitation Last Admin: 02/18/25 08:48 Dose: 5 mg Diazepam (Diazepam 10 Mg/2 Ml Cartridge) 5 mg IM TID PRN PRN Reason: refuse [place] and Valium Last Admin: 02/27/25 09:00 Dose: 5 mg Diazepam (Diazepam 5 Mg Tablet) 10 mg PO BEDTIME VERONICA Last Admin: 03/05/25 21:20 Dose: 10 mg Diazepam (Diazepam 2 Mg Tablet) 4 mg PO BID@0900,1500 [facility] Last Admin: 03/06/25 08:56 Dose: 4 mg Docusate Sodium (Docusate Sodium 100 Mg Capsule) 100 mg PO BID PRN PRN Reason: Constipation Last Admin: 01/30/25 20:10 Dose: 100 mg Haloperidol Lactate (Haloperidol Lactate 5 Mg/Ml Vial) 5 mg IM TID PRN PRN Reason: refusal of scheduled seroquel Last Admin: 02/04/25 20:14 Dose: 5 mg Hydrocortisone (Hydrocortisone 2.5 % Rectal Cr 30 Gm Tube) 1 appl ME DAILY PRN PRN Reason: hemrroids Last Admin: 01/26/25 14:57 Dose: 1 appl [place] Carbonate ([place] Carbonate Er 300 Mg Tablet.Er) 300 mg PO BID [facility] Last Admin: 03/06/25 08:56 Dose: 300 mg [place] Carbonate ([place] Carbonate Er 300 Mg Tablet.Er) 300 mg PO BEDTIME VERONICA Last Admin: 03/05/25 21:19 Dose: 300 mg Magnesium Hydroxide (Milk Of Magnesia 30 Ml Oral.Susp) 30 ml PO DAILY PRN PRN Reason: Constipation Last Admin: 01/26/25 14:59 Dose: 30 ml Multivitamins/Vitamin C (Multivitamin Tablet) 1 tab PO DAILY VERONICA Last Admin: 03/06/25 08:56 Dose: 1 tab Nicotine (Nicotine 7 Mg Patch.Td24) 7 mg TRANSDERMA DAILY PRN PRN Reason: Nicotine craving Nicotine Polacrilex (Nicotine Polacrilex 2 Mg Gum) 4 mg BUCCAL Q2H PRN PRN Reason: Nicotine Cravings Last Admin: 02/21/25 17:26 Dose: 4 mg Polyethylene Glycol (Polyethylene Glycol 3350 17 Gm Powd.Pack) 17 gm PO DAILY PRN PRN Reason: constipation Prazosin HCl (Prazosin Hcl 1 Mg Capsule) 1 mg PO BEDTIME [facility]; Protocol Last Admin: 03/05/25 21:20 Dose: 1 mg Propranolol HCl (Propranolol Hcl 10 Mg Tablet) 10 mg PO TID [facility]; Protocol Last Admin: 03/06/25 08:57 Dose: 10 mg Quetiapine Fumarate (Quetiapine Fumarate 50 Mg Tablet) 50 mg PO BID@0900,1500 [facility] Last Admin: 03/06/25 08:56 Dose: 50 mg Quetiapine Fumarate (Quetiapine Fumarate 300 Mg Tablet) 300 mg PO BEDTIME [facility] Last Admin: 03/05/25 21:19 Dose: 300 mg Allergies Allergies Allergy/AdvReac Type Severity Reaction Status Date / Time amphetamine (From Adderall) Allergy Severe psychosis/ Verified 02/13/25 22:40 Manic dextroamphetamine (From Allergy Severe psychosis/ Verified 02/13/25 22:40 Adderall) Manic olanzapine (From Zyprexa) AdvReac Rash Verified 12/31/24 18:41 Assessment & Plan Assessment & Plan (1) Psychosis: Status: Acute Code(s): F29 - Unspecified psychosis not due to a substance or known physiological condition Plan Ms. Sheridan is a 34 year-old woman who presents with s/s of psychosis, disorganized, some degree of paranoia. She had similar episode back in 2020. 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 I do suspect that there may be underlying psychiatric disorder that is triggered by amphetamine use but not necessarily caused by it. Further evaluation to clarify dx is needed. We discussed inpt level of care. We also discussed restarting risperidone 1mg po BID. low dose clonazepam. continue clonidine. 1. IPLOC 2. start risperidone 1mg po BID. Clonazepam 0.5mg po BID. 01/05: Continue current regimen and plans. 01/06: slept only 2 hours, disorganized, decompensated behaviors. unable to interact cogently. refusing risperidone, will offer seroquel instead. possible bipolar diathesis, T/C mood stabilizer. delirium also a possibility, as the mental status change since admission appears to be striking. 01/07: took seroquel 200 last night, slept 5.5 hours. more organized, linear, able to engage today. continue current mgmt. 01/08: refused seroquel last NOC, slept only 30 minutes. agitated, bizarre, disorganized today. commitment paperwork filed. 01/09: refused meds yesterday but got IMs due to behaviors (outbursts, touching peers, yelling, banging doors, pushed her sitter, climbing on tables and chairs. threatening to stab self with pens). more linear and engageable today, once again the day after having takenm medication. agrees to continue to take seroquel 200 mg QHS. 01/10: took seroquel last NOC and slept 4 hours overnight, but bizarre today. less agitation and intrusiveness than yesterday, but still bizarre and fairly intrusive. pt appears willing to take risperidone, will DC seroquel and return to dosing of risperidone 2 mg BID. took first dose this afternoon. court next monday. 01/11 very paranoid, fearful, taking medications 01/12 continue tx. 01/13: appears a bit more organized today than when not taking medications, although slow and processing poorly. declines to sign CV. commitment hearing tomorrow. 01/14: hearing continued until 01/24 for SINDY. add klonopin 0.5 BID ODT, change risperidone formulation to liquid (pt has been inducing vomiting repeatedly with toothbrush). hold toothbrush unless actively brushing teeth. continues interactive to some extent with MD today, but has been grabbing badges, touching others, and tried to vault into the nursing station in the past 24H. 01/15: IM medication after threatening to punch staff training and development manager with intrusive and aggressive behaviors toward peers. pt did not take klonopin as ordered yesterday. DC klonopin and start VPA 500 BID. per staff, running. tried to make herself vomit after taking PRN. labile. ate her feces in the shower and tried to feed it to her 1:1. crawling under tables. tried to jump into nurses station x2. took her shirt off and swinging it around. did not sleep at all. slept at 7:30am. 01/16: refusing VPA, taking risperidone. napped after IMs yesterday. has been bizarre and labile since. slept only 2 hours overnight. continue current mgmt. 01/17: agitated, bizarre, and aggressive behaviors yesterday (punching and kicking beard, stripping off in milieu, attempting to intimidate staff, grabbing stress balls out of staff's hands). did take VPA this morning on its being offered a second time. more calm today. taking risperidone. 01/18: intermittently refusing VPA, seems to be taking risperidone. asks MD if he is alive, then proposes elbow bump. accusing staff of stealing her things (phone), calling mother and census clerk in the middle of the night. slept less than 4 hours. 01/19: more lucid today. concerned about risperidone weight gain. agrees to DC risperidone and try prolixin instead, starting at 2.5 BID. 01/20: very disorganized, bizarre, psychotic today. likely due to equivalent dosing of prolixin being given much lower than prior risperidone. as pt seems to be tolerating prolixin without issues, increase prolixin dosing from 2.5 BID to 5 BID. otherwise continue current mgmt. 01/21: less bizarre and disorganized, but still quite ill. variably compliant with medications. c/o leg pain, lowering self to floor; started cogentin 0.5 BID due to concern for dystonia. c/o nightmares, h/o prazosin with good effect. add prazosin 1 mg QHS as of vic. 01/22: Patients states that she is good. She is scared of [place] herpes after having sex. She refused to participate in an interview with this provider, and walked away stating i don't need a provider. She was observed by this provider, pacing the [place]. Continue current treatment regimen. 01/23: disorganized and dangerous behaviors. voluntarily took IMs. court tomorrow. 01/24: remains disorganized. ran into staff member yesterday, postured and threatened other staff afterward. slept about 6.[address] this afternoon. 01/25/25: Staff 5 6 hours with broken sleep. Compliant with medication with lots of encouragement from yesterday, refused her vitamins in the morning. CT scan was negative, she fell early in the morning, witness her head hit the wall the trying to put her pants on. Slightly improved in mood with medication compliant. VPA level is 52,1 low side. However patient not consistently take it every day. We will recheck. He is on section 8. Pending Wei's order. Less irritable, less racing. 01/26/25: Mostly compliant with medication, to 250/750 mg of Depakote scheduled at bedtime. Labile, restless, poor boundaries, sexually inappropriate behavior, mood is aggravated . Disorganized. Slightly improving but not much. She is better in terms of compliant with medications. 01/27: mostly compliant with meds. improved from last week, more organized and less labile today. agreement reached on medications, reinstate risperidone as primary antipsychotic Tx, remove request for mood stabilizers, remove ativan. DC prolixin, begin taper of VPA, restart risperidone 2 BID, add thorazine 100 and valium 10 at HS to encourage sleep. awaiting med order. 01/28: last evening was pushing, attempting to kick and bite staff, shoulder- checked peer, exposing genitalia to 1:1 staff. took meds last night and this morning. court order received today, reviewed, medications adjusted to comply with order. reportedly more linear today, but pt declined to meet with MD after brief psychotic interaction with MD. 01/29: dysregulated, agitated behaviors continue last night. calmer days. refused VPA this morning. continue VPA taper, decrease from 500 BID to 250 TID as of today. increase HS seroquel from 300 mg to 400 mg as of tonight and HS valium from 10 mg to 15 mg as of tonight for sleep and sylwia. 01/30: same pattern of calm days through mid-afternoon, then decompensation. add third scheduled dosing of risperidone in the middle of the day, schedule valium in the morning and at 3 pm, otherwise continue current mgmt. increase HS seroquel if pt does not sleep more than several hours tonight. continue VPA taper tomorrow. 01/31: calm, morning. severe akathisia eves, unable to sleep or remain still. slept only 2.5 hours. due to 4 mg risperidone daily being inadequate to treat Sx and 6 mg causing severe akathisia, will DC risperidone in favor of a less potent antipsychotic, seroquel. schedule seroquel 100/100/500. taper VPA to 250 BID as of tomorrow. propranolol 20 TID started last night for akathisia, will continue for now. 02/01: no change - monitor akathisia decrease on new regimen 02/02: nicotine patch taper to 7 mg; seems to be doing better with switch to Seroquel and augmentation with Propranolol; primary team may f/u with further discussion of behavioral plan 02/03: much improved from last week. calm, linear, logical, topical. slept 6 hours each the last 3 nights. c/o sedation. decrease daytime valium from 5 BID to 2 BID. decrease daytime seroquel from 100 BID to 75 BID. taper VPA from 250 BID to 250 QHS. 02/04: remains much improved. no overt MSE abnormalities. c/o sedation, decrease seroquel from 75 BID to 50 BID and from 500 QHS to 400 QHS. DC VPA entirely. otherwise continue current mgmt. 02/05: backsliding today. irritable, erratic, more disorganized, labile. stating her intent to stop taking medications, demanding discharge. continue current mgmt. 02/06: much improved today. calm, logical, cogent and topical. pt would like to taper off of valium (addicting) and onto a proper mood stabilizer. vp legal affairs notified. DC daytime valium. restart prazosin due to c/o nightmares. decrease propranolol from 20 TID to 10 TID (should no longer be necessary as off of medications likely to cause akathisia). DC daytime seroquel tomorrow. 02/07: similar conversation to yesterday. DC daytime seroquel. awaiting word from legal re adding lithium. otherwise continue current mgmt. 02/08: keeping to self. irritable edge. pt reports feeling overwhelmed d/t room change. medication compliant. focused on returning home. denies SI/HI/VH/AH. per nursing, slept 6 hours last night. continue current tx plan. 02/09: irritable edge. medication compliant. focused on returning home. intrusive during a peer's treatment; declined to walk away when asked by staff multiple times; poor insight and judgment. pt became upset after meeting with her mother; pt stated, my mom says its my behavior why I'm still here. I think they are keeping me here because I locked myself in that room . Valium decreased to 10mg PO bedtime. 02/10: irritable. medication compliant. Perseverative on discharge. Patient reports sleeping well last night. Appears calmer today. She reports visit with her mother when well. Denies SI/HI/VH/AH. Attending groups. Continue current treatment plan. 02/11/25: Irritable, irrational regarding why she is still being here. Poor insight and poor judgment. Not thinks she has bipolar. She only believes she has has ADHD and autism, therefore she does not need to be here and that no reason to keep her here longer. As a future, she does not think she going to continue taking medication after discharge per nursing. Racing thoughts. At times she is calm, able to attend groups, and some what appropriate. Have good visit with brother and mom yesterday. Not able to discuss for medication change due to agitated/irritable mood. 02/12/25: Been sleeping well, no issue with appetite, attended groups, have visit with mom. Both mom and patient the nurse believe that patient is not manic or having any bipolar features. They only believe that she has ADHD and autism. Mom advocate for patient to be discharged. Mom claims that the treatment team has not ever reach out to her. Both of the agree to have a family meeting in the future. We will leave message to the team to set it up. Patient has some mood swing, but overall, continued to improve with help of the medication. She wants to be off from Valium, but do not want any other medication change. Both Seroquel and Valium is on Muniz order. No other safety concerns. 02/13/25: Slept well, compliant with medications, refused nicotine patch on. Observed visible and attending groups, irritable at times, hyper focused on discharge as her normal baseline of everyday. Do not want any medication change. Reports gaining 28 lb since she got here. Nutrition consult placed. We will add Adderall on allergy list which make her psychotic. Patient to nursing put it in her allergy list. Some labile mood, pressured speech. 02/14: continue current tx plan. 02/15/25: Slept well, manage meal intake, portion size, healthier snacks to control her weight gain. Met with the dietitian today. She also ask staff to pronounce the list of healthy/happy food. Family brought in some healthy snack for her. She was mad being wakened up to get vital signs in the morning by nursing staff. Denies suicidal thoughts, denies hallucinations. She asked questions regarding diagnosis. Educate her regarding psychosis that she came with. Explained with her regarding medication she has been taking here, she will be discharged with, and then work with the outpatient psychiatrist to continue with [facility]iz orders, making any change if necessary. She is more receptive with the plan, more rationale when she is not in the bad mood. She appreciates the time I spent talking to her today. She attended groups, visible. No ADLs issues. Can be irritable at times. Refused her propranolol in the morning. She took multivitamins later on of the day after she refused. Change nicotine patch to p.r.n.. 02/16/25: Reported that she was angry, other than that she feels mood more stable today. Nursing staff contacted this provider reported that patient in the past was allowed using the head phone at night to cancel out the noise. Patient asked if she was allowed to use it again. Patient focused on healthy food, eating yogurt only in the morning. Family brought in more seeds instead of eating unhealthy food from hospital. She also was irritable as someone touching her clothes in the washer. She has a couple visits today. She feels ready to leave and stable enough to go home to community. She is looking forward to talk to her attending this week regarding discharge. Denies other safety concerns. She has been irritable at times, but able to control her anger. She said this is her baseline, and being in here is make her more irritable. Had phones use overnight order was discontinued per policy. 02/17: calm, logical, cooperative. appearing overly controlled, unnatural in doing so. medications plan at our last meeting resurrected - start lithium, taper seroquel and valium. pt states she is open to mood stabilizers. informs pt he believes she lacks capacity presently and will notify energy attorney to communicate with pt's energy attorney. hospital energy attorney notified. continue current mgmt for now. 02/18: corresponding with energy attorney re stipulated agreement. pt intrusive with peers and resistant to redirection by staff. with MD pt is calm and cooperative, but attempting to engage in argument justifying her intrusive behavior. continue current mgmt. slept well. 02/19/25: showered in the morning, reasonable, , slept for 6 hours I was up for snack , compliant with meds except Propranonol at 1500 yesterday. She asked if she can use electric razor to trim the pubic hair which was not allowed per safety and unit policy. Continue working healthy diet and snack. 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 No major behavior issues. Sometimes ask for stuff she knows they are not allowed. Continue with the plan. 02/20: refused seroquel last night, did not receive IM back-up. appears with bizarre smile today, believes she doesn't need medications and is ready to discharge. 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 plan for lithium in lieu of valium and seroquel, ideally, reviewed. pt appears to have very poor retention, as this plan has been discussed numerous times. pt was encouraged to discuss with her energy attorney and was given her energy attorney's contact information ([facility] number). 02/21: talking about not taking meds once discharged. refusing meds then taking them last second prior to IM administration. labile, irritable. very disorganized today, severely impaired cognitive performance. restart valium 5 and seroquel 75 BID at 0900, 1500. otherwise continue current mgmt. awaiting word from temporary help agency referral clerk re stipulated agreement for mood stabilizers. 02/22: Continue current regimen and plans. Orajel ordered. 02/23: Continue current plans and regimen 02/24: more organized and less oppositional, labile, intrusive, impulsive than monday. willing to take lithium. per energy attorney, we may have a stipulated agreement. continue current mgmt for now, hoping to start lithium GIRISH. 02/25/25: Amend the treatment plan to include mood stabilizer [place] Carbonate as primary treatment at therapeutic blood levels. Organized at times but when she is more anxious, less rationale. She does not accept new add on [place] on Wei's order that is effective today it is fake, you can keep it. I need to talk to my census clerk . why I need [place]?I do not have bipolar . She believes she has autism and ADHD only. She asked inappropriate question such as if this provider knowing what JERSON and if this provider used it before. Patient asked to get her OP therapist to involve in decision making on meds. Prior to this conversation, she was calm, showing pictures of herself and family members that she has personal space for them on the wall. Some labile mood, underline irritable but no angry outburst. At some point, she states that Seroquel added on during daytime is helping with her mood and that I was not mad when she was waken up this morning. Denies SI/SIB/HI/AVH [place] ER 600mg daily at HS for mood. With some labs ordered for roshanildefonso CMP, TSH, Free T4. 02/26/25 Slept for 8 hours, compliant with medications except lithium. Rumination, poor insight and judgment, asking inappropriate questions, thought processes not on treatment, racing, anxious, appears to be paranoid. The RN showed the new amended Wei order, she does not believe it is true and wanted fire her energy attorney. HRO notified, met with patient. Continued to she is not bipolar, believes she has PTSD symptoms that causing her mood changes. Want this to talk to her outpatient therapist. We will arrange to make phone call for collateral. Change [place] [facility] from 600mg at HS to BID with IM of 5mg Valium IM back up if refuse. 02/27/25: Slept for 8 hours, compliant with medications, except for lithium- received Valium IM backup. Continued to resist to mood stabilizer, poor judgment, poor insight, do not believe she has bipolar. Nursing staff reports she was rude, inappropriate with staff, asking inappropriate questions. Racing thoughts. Request information regarding lithium. Nursing staff pronounced the handout, she has not in hand. Side effects noted. We will contact Josy Franklin- [facility] therapist at [phone] per patient request as she believes that her therapist should be involved in the decision making regarding diagnosis. 02/28/25: Continued to improve in sleep. Medication compliant, except for lithium yesterday morning. She took the evening dose per nursing report. Nurse's also provide patient with information related to lithium. Patient request the current [facility] order. Given a copy. She finally wants to keep it as she has been referred to review. She requests take her off from Seroquel if this provider wants her to text lithium which is unreasonable as she requests to take her off of them. Not able to rationale with her about the medication plan. Slightly having some open and accepting lithium. At home she will compliant do well with the lithium. In the future when she got into therapeutic level targeting labile mood, we can taper down on Seroquel or taper down on Valium. At this current time, due to current mental status, she can not process the information, not register in her mind for medication plans at this time. She does not trust the provider, she does not believe she has bipolar which is hard to convince her to take lithium. Labile mood, irritable and can be rude. Monitor over weakens for [place] and other medication compliant. IM back up available per Flav[facility]' order. Attempted to call Josy Franklin- [facility] therapist at [phone]. Left voices message with assistant front office manager. Waiting for a call back. 03/01: calm, cooperative, logical. still processing difficulties, but improved from last time we met. taking lithium for 2 days now, slept 8 hours overnight. decrease seroquel 75/75/400 to 50/50/300 and valium 5 BID to 4 BID. otherwise continue current mgmt. 03/02: declined interview for phone call. per staff, taking meds, accusing staff of trying to change her personality. 03/03/25: Patient slept for 7 hours, compliant with medication p.o Included lithium. Some labile mood, irritable, making accusation regarding what provider told her during assessment. She reported that she has has been calling outpatient therapist repeatedly but has not received a call back. Patient was informed that this provider also called, waiting for a call back as well. She asked why can not she take medication like this with the outpatient provider. Explained to her that she needs to be more stable before we discharge her, as now per her perception, she may feel that she is ready to go home, but other people in the treatment team do not think she is ready yet. Per nursing patient was better over the weekends, less provocative. Think we are changing her personality. We will check the lithium level on Monday morning. Been taking consistently the past 3 and half days. 03/04/25: Patient slept well, compliant with medication. Continue calling outpatient therapist herself. She has not hearing back from them. She reported that she wants to go home, therefore she will do whatever she needs to do to get home. 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 Explained to her that we will get the level tomorrow, level coming back subtherapeutic, we will increase dose of the lithium. In the meantime, we will consider to lower Seroquel down, mood is more stable. She is less labile today, attended to some groups. No safety concern. Constricted affect. Less irritable. [place] level for tomorrow morning. 03/05/25: Patient slept for 8 hours, was medication compliant. No IM backup need to be used. She has questions related to what she have to do and what is next step to get discharge. Explained the plan that we are waiting for the lithium level. If it is sub therapeutic, we will titrate until we get the therapeutic level. When she is more stable, we will plan to discharge her to outpatient provider in which she can continue taking medications. She appeared to be less labile, reasonable, more logical, able to take in information. No angry outbursts, attend his groups except when she has visiors. Continue working on healthy snack and diet. [place] level is 0.29; subtherapeutic. Increase [place] up to 900mg daily in divided dose. Recheck in 5 days 03/06/25: Patient slept for 7 hours, was medication compliant. Denies side effects. She is aware of the lithium change yesterday, and asked what the plan from now on. She agrees with the plan of lithium level in the next 5 days, and can be having some other medication adjusted. However she said she wants to leave everything the same like it is now when I was talking to her regarding benzo taper down. We will leave the same dose of benzo and Seroquel. We will revisit to see if the patient have thoughts of wanting to taper down on benzo as she is more stable. I will leave it there the way it is now so that she can have some control over her treatment. Reports to nursing that she feel a bit anxious and depressed. No argumentative, much less labile, more red rational and logical. Pacing the [place] to get steps in. Intermittently attended groups, no behavior issues. Most likely to be discharged late next week. Patient educated on: medication risk/benefits and therapeutic strategies Informed Consent: understands Reason for continued inpatient stay Substantial Risk for: med/psych decompensation Time Spent With Patient Time: Total time managing care of this patient today ____ minutes.
[2025-03-06] MEDS: Lidocaine 4 % Patch ADH..PATCH 1 PATCH TRANSDERMA (14:58)
[2025-03-06 16:04] VITALS: BP 114/63; PULSE 91
[2025-03-06 19:20] VITALS: BP 123/58; PULSE 92; RESP 16; TEMP 37.1; O2SAT 98
[2025-03-06 22:09] VITALS: BP 112/55; PULSE 88
[2025-03-07 09:30] VITALS: BP 119/60; PULSE 98; RESP 16; TEMP 36.7; O2SAT 98
[2025-03-07] MEDS: Calcium + Vitamin D 250 MG TABLET PO ×2 (09:34→16:26)
[2025-03-07] MEDS: Lidocaine 4 % Patch ADH..PATCH 1 PATCH TRANSDERMA (12:10)
[2025-03-07 16:27] VITALS: BP 119/60; PULSE 91
--- NOTE | 2025-03-07 18:33 | HO.PSYCHPN ---
Subjective Subjective Date of Service: 03/07/25 Reason For Visit: Crisis Subjective Notes: [facility] Order and Section 8 Healthcare Proxy: No Guardianship: No Medical Problems Affecting Mental Status: No Interim History: Medical record and nursing notes reviewed; case discussed during rounds with team/nursing staff, and met with patient for supportive therapy/psychoeducation, as well as medication management. Continued to improve in mood, sleep and energy, compliant with medications, no side effects. She is more logical, more focused on treatment, continue working on healthy diet, walking the [place]den to get some exercise done, no labile mood. She agree with the medication change but asked them do much of change to make her not stable and not able to go home. No argumentative, very reasonable. Denies anxiety and depression, denies safety concerns. Medication Compliance: Yes Side effects from medications: No Attending Groups: Intermittent Review of Systems Acute medical concerns: No Medical Review of Systems: unchanged Review of Systems Review of Systems Constitutional: Denies fatigue and Denies fever(s) Cardiovascular: Denies chest pain and Denies dyspnea Respiratory: Denies dyspnea Gastrointestinal: Denies abdominal pain Psychiatric: denies suicidal ideation Endocrine: Denies fatigue Yes all other systems are reviewed and are negative Mental Status Exam Mental Status Exam Narrative: Appearance: adequately dressed and groomed Behavior: no PMA/PMR. Speech: nml amount, nml loudness. nml latency. TP: organized, linear. logical TC: Took medication PO, focus on treatment Mood: good Affect: calm, constricted AH/VH: none expressed Insight/judgment: some more improvement Memory/cog: alert, improving . Diagnostics Vital Signs (24Hr): Vital Signs - 24 hr 03/06/25 19:20 03/06/25 22:09 03/06/25 22:09 Temperature 98.7 F Pulse Rate 92 88 Respiratory Rate 16 Blood Pressure 123/58 L 112/55 L 112/55 L Pulse Oximetry 98 Oxygen Delivery Method Room Air 03/07/25 09:30 03/07/25 09:30 03/07/25 16:27 Temperature 98.1 F Pulse Rate 98 98 91 Respiratory Rate 16 Blood Pressure 119/60 119/60 119/60 Pulse Oximetry 98 Oxygen Delivery Method Room Air BMI result Body Mass Index 25.9 Labs 01/09/25 16:36 02/26/25 08:32 Imaging Radiology Impressions: ITS Impressions Hand X-Ray 01/16/25 11:30 IMPRESSION: Unremarkable right hand Electronically signed by: Casa Rush MD 01/16/2025 11:46 AM EDT RP Hand X-Ray 01/29/25 07:30 IMPRESSION: Unremarkable examination of the right hand. Electronically signed by: Obdulio Tolbert MD 01/30/2025 07:56 AM EDT RP Medications Medications Current Medications Acetaminophen (Acetaminophen 325 Mg Tablet) 650 mg PO Q6H PRN PRN Reason: Headache/Pain, Scale 1-10 Last Admin: 03/06/25 08:55 Dose: 650 mg Al Hydroxide/Mg Hydroxide (Magnesium Hydrox/Alum Hydrox 30 Ml Oral.Susp) 30 ml PO Q6H PRN PRN Reason: Heartburn/Nausea Last Admin: 01/30/25 14:06 Dose: 30 ml Artificial Tears (Artificial Tears 15 Ml Drops) 2 drop EYE-BOTH Q4H PRN PRN Reason: Dry Eyes Last Admin: 02/06/25 09:24 Dose: 2 drop Benzocaine (Benzocaine 20 % Oral Gel 14 Gm Tube) 1 appl MUCOUS MEM QID PRN; Protocol PRN Reason: Pain, Mild 1-3,fever,headache Last Admin: 03/06/25 22:10 Dose: 1 appl Calcium Carbonate/Cholecalciferol (Calcium + Vitamin D 250 Mg Tablet) 250 mg PO BIDWM VERONICA Last Admin: 03/07/25 16:26 Dose: 250 mg Diazepam (Diazepam 5 Mg Tablet) 5 mg PO Q4H PRN PRN Reason: agitation Last Admin: 02/18/25 08:48 Dose: 5 mg Diazepam (Diazepam 10 Mg/2 Ml Cartridge) 5 mg IM TID PRN PRN Reason: refuse [place] and Valium Last Admin: 02/27/25 09:00 Dose: 5 mg Diazepam (Diazepam 2 Mg Tablet) 4 mg PO BID@0900,1500 VERONICA Last Admin: 03/07/25 16:26 Dose: 4 mg Diazepam (Diazepam 5 Mg Tablet) 5 mg PO BEDTIME VERONICA Docusate Sodium (Docusate Sodium 100 Mg Capsule) 100 mg PO BID PRN PRN Reason: Constipation Last Admin: 01/30/25 20:10 Dose: 100 mg Haloperidol Lactate (Haloperidol Lactate 5 Mg/Ml Vial) 5 mg IM TID PRN PRN Reason: refusal of scheduled seroquel Last Admin: 02/04/25 20:14 Dose: 5 mg Hydrocortisone (Hydrocortisone 2.5 % Rectal Cr 30 Gm Tube) 1 appl KS DAILY PRN PRN Reason: hemrroids Last Admin: 01/26/25 14:57 Dose: 1 appl Lidocaine (Lidocaine 4 % Patch Adh..Patch) 1 patch TRANSDERMA DAILY VERONICA; Protocol Last Admin: 03/07/25 12:10 Dose: 1 patch [place] Carbonate ([place] Carbonate Er 300 Mg Tablet.Er) 300 mg PO BID VERONICA Last Admin: 03/07/25 09:31 Dose: 300 mg [place] Carbonate ([place] Carbonate Er 300 Mg Tablet.Er) 300 mg PO BEDTIME VERONICA Last Admin: 03/06/25 22:03 Dose: 300 mg Magnesium Hydroxide (Milk Of Magnesia 30 Ml Oral.Susp) 30 ml PO DAILY PRN PRN Reason: Constipation Last Admin: 01/26/25 14:59 Dose: 30 ml Multivitamins/Vitamin C (Multivitamin Tablet) 1 tab PO DAILY VERONICA Last Admin: 03/07/25 09:31 Dose: 1 tab Nicotine (Nicotine 7 Mg Patch.Td24) 7 mg TRANSDERMA DAILY PRN PRN Reason: Nicotine craving Nicotine Polacrilex (Nicotine Polacrilex 2 Mg Gum) 4 mg BUCCAL Q2H PRN PRN Reason: Nicotine Cravings Last Admin: 02/21/25 17:26 Dose: 4 mg Polyethylene Glycol (Polyethylene Glycol 3350 17 Gm Powd.Pack) 17 gm PO DAILY PRN PRN Reason: constipation Prazosin HCl (Prazosin Hcl 1 Mg Capsule) 1 mg PO BEDTIME VERONICA; Protocol Last Admin: 03/06/25 22:09 Dose: 1 mg Propranolol HCl (Propranolol Hcl 10 Mg Tablet) 10 mg PO TID VERONICA; Protocol Last Admin: 03/07/25 16:27 Dose: 10 mg Quetiapine Fumarate (Quetiapine Fumarate 50 Mg Tablet) 50 mg PO BID@0900,1500 VERONICA Last Admin: 03/07/25 16:27 Dose: 50 mg Quetiapine Fumarate (Quetiapine Fumarate 300 Mg Tablet) 300 mg PO BEDTIME VERONICA Last Admin: 03/06/25 22:05 Dose: 300 mg Allergies Allergies Allergy/AdvReac Type Severity Reaction Status Date / Time amphetamine (From Adderall) Allergy Severe psychosis/ Verified 02/13/25 22:40 Manic dextroamphetamine (From Allergy Severe psychosis/ Verified 02/13/25 22:40 Adderall) Manic olanzapine (From Zyprexa) AdvReac Rash Verified 12/31/24 18:41 Assessment & Plan Assessment & Plan (1) Psychosis: Status: Acute Code(s): F29 - Unspecified psychosis not due to a substance or known physiological condition Plan Ms. Sheridan is a 34 year-old woman who presents with s/s of psychosis, disorganized, some degree of paranoia. She had similar episode back in 2020. 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 I do suspect that there may be underlying psychiatric disorder that is triggered by amphetamine use but not necessarily caused by it. Further evaluation to clarify dx is needed. We discussed inpt level of care. We also discussed restarting risperidone 1mg po BID. low dose clonazepam. continue clonidine. 1. IPLOC 2. start risperidone 1mg po BID. Clonazepam 0.5mg po BID. 01/05: Continue current regimen and plans. 01/06: slept only 2 hours, disorganized, decompensated behaviors. unable to interact cogently. refusing risperidone, will offer seroquel instead. possible bipolar diathesis, T/C mood stabilizer. delirium also a possibility, as the mental status change since admission appears to be striking. 01/07: took seroquel 200 last night, slept 5.5 hours. more organized, linear, able to engage today. continue current mgmt. 01/08: refused seroquel last NOC, slept only 30 minutes. agitated, bizarre, disorganized today. commitment paperwork filed. 01/09: refused meds yesterday but got IMs due to behaviors (outbursts, touching peers, yelling, banging doors, pushed her sitter, climbing on tables and chairs. threatening to stab self with pens). more linear and engageable today, once again the day after having takenm medication. agrees to continue to take seroquel 200 mg QHS. 01/10: took seroquel last NOC and slept 4 hours overnight, but bizarre today. less agitation and intrusiveness than yesterday, but still bizarre and fairly intrusive. pt appears willing to take risperidone, will DC seroquel and return to dosing of risperidone 2 mg BID. took first dose this afternoon. court next monday. 01/11 very paranoid, fearful, taking medications 01/12 continue tx. 01/13: appears a bit more organized today than when not taking medications, although slow and processing poorly. declines to sign CV. commitment hearing tomorrow. 01/14: hearing continued until 01/24 for SINDY. add klonopin 0.5 BID ODT, change risperidone formulation to liquid (pt has been inducing vomiting repeatedly with toothbrush). hold toothbrush unless actively brushing teeth. continues interactive to some extent with MD today, but has been grabbing badges, touching others, and tried to vault into the nursing station in the past 24H. 01/15: IM medication after threatening to punch staff writer with intrusive and aggressive behaviors toward peers. pt did not take klonopin as ordered yesterday. DC klonopin and start VPA 500 BID. per staff, running. tried to make herself vomit after taking PRN. labile. ate her feces in the shower and tried to feed it to her 1:1. crawling under tables. tried to jump into nurses station x2. took her shirt off and swinging it around. did not sleep at all. slept at 7:30am. 01/16: refusing VPA, taking risperidone. napped after IMs yesterday. has been bizarre and labile since. slept only 2 hours overnight. continue current mgmt. 01/17: agitated, bizarre, and aggressive behaviors yesterday (punching and kicking beard, stripping off in milieu, attempting to intimidate staff, grabbing stress balls out of staff's hands). did take VPA this morning on its being offered a second time. more calm today. taking risperidone. 01/18: intermittently refusing VPA, seems to be taking risperidone. asks MD if he is alive, then proposes elbow bump. accusing staff of stealing her things (phone), calling mother and parachute marker in the middle of the night. slept less than 4 hours. 01/19: more lucid today. concerned about risperidone weight gain. agrees to DC risperidone and try prolixin instead, starting at 2.5 BID. 01/20: very disorganized, bizarre, psychotic today. likely due to equivalent dosing of prolixin being given much lower than prior risperidone. as pt seems to be tolerating prolixin without issues, increase prolixin dosing from 2.5 BID to 5 BID. otherwise continue current mgmt. 01/21: less bizarre and disorganized, but still quite ill. variably compliant with medications. c/o leg pain, lowering self to floor; started cogentin 0.5 BID due to concern for dystonia. c/o nightmares, h/o prazosin with good effect. add prazosin 1 mg QHS as of tonight. 01/22: Patients states that she is good. She is scared of [place] herpes after having sex. She refused to participate in an interview with this provider, and walked away stating i don't need a provider. She was observed by this provider, pacing the [place]. Continue current treatment regimen. 01/23: disorganized and dangerous behaviors. voluntarily took IMs. court tomorrow. 01/24: remains disorganized. ran into staff member yesterday, postured and threatened other staff afterward. slept about 6.[address] this afternoon. 01/25/25: Staff 5 6 hours with broken sleep. Compliant with medication with lots of encouragement from yesterday, refused her vitamins in the morning. CT scan was negative, she fell early in the morning, witness her head hit the wall the trying to put her pants on. Slightly improved in mood with medication compliant. VPA level is 52,1 low side. However patient not consistently take it every day. We will recheck. He is on section 8. Pending Wei's order. Less irritable, less racing. 01/26/25: Mostly compliant with medication, to 250/750 mg of Depakote scheduled at bedtime. Labile, restless, poor boundaries, sexually inappropriate behavior, mood is aggravated . Disorganized. Slightly improving but not much. She is better in terms of compliant with medications. 01/27: mostly compliant with meds. improved from last week, more organized and less labile today. agreement reached on medications, reinstate risperidone as primary antipsychotic Tx, remove request for mood stabilizers, remove ativan. DC prolixin, begin taper of VPA, restart risperidone 2 BID, add thorazine 100 and valium 10 at HS to encourage sleep. awaiting med order. 01/28: last evening was pushing, attempting to kick and bite staff, shoulder-checked peer, exposing genitalia to 1:1 staff. took meds last night and this morning. court order received today, reviewed, medications adjusted to comply with order. reportedly more linear today, but pt declined to meet with MD after brief psychotic interaction with MD. 01/29: dysregulated, agitated behaviors continue last night. calmer days. refused VPA this morning. continue VPA taper, decrease from 500 BID to 250 TID as of today. increase HS seroquel from 300 mg to 400 mg as of tonight and HS valium from 10 mg to 15 mg as of tonight for sleep and sylwia. 01/30: same pattern of calm days through mid-afternoon, then decompensation. add third scheduled dosing of risperidone in the middle of the day, schedule valium in the morning and at 3 pm, otherwise continue current mgmt. increase HS seroquel if pt does not sleep more than several hours tonight. continue VPA taper tomorrow. 01/31: calm, morning. severe akathisia eves, unable to sleep or remain still. slept only 2.5 hours. due to 4 mg risperidone daily being inadequate to treat Sx and 6 mg causing severe akathisia, will DC risperidone in favor of a less potent antipsychotic, seroquel. schedule seroquel 100/100/500. taper VPA to 250 BID as of tomorrow. propranolol 20 TID started last night for akathisia, will continue for now. 02/01: no change - monitor akathisia decrease on new regimen 02/02: nicotine patch taper to 7 mg; seems to be doing better with switch to Seroquel and augmentation with Propranolol; primary team may f/u with further discussion of behavioral plan 02/03: much improved from last week. calm, linear, logical, topical. slept 6 hours each the last 3 nights. c/o sedation. decrease daytime valium from 5 BID to 2 BID. decrease daytime seroquel from 100 BID to 75 BID. taper VPA from 250 BID to 250 QHS. 02/04: remains much improved. no overt MSE abnormalities. c/o sedation, decrease seroquel from 75 BID to 50 BID and from 500 QHS to 400 QHS. DC VPA entirely. otherwise continue current mgmt. 02/05: backsliding today. irritable, erratic, more disorganized, labile. stating her intent to stop taking medications, demanding discharge. continue current mgmt. 02/06: much improved today. calm, logical, cogent and topical. pt would like to taper off of valium (addicting) and onto a proper mood stabilizer. bankruptcy legal assistant notified. DC daytime valium. restart prazosin due to c/o nightmares. decrease propranolol from 20 TID to 10 TID (should no longer be necessary as off of medications likely to cause akathisia). DC daytime seroquel tomorrow. 02/07: similar conversation to yesterday. DC daytime seroquel. awaiting word from legal re adding lithium. otherwise continue current mgmt. 02/08: keeping to self. irritable edge. pt reports feeling overwhelmed d/t room change. medication compliant. focused on returning home. denies SI/HI/VH/AH. per nursing, slept 6 hours last night. continue current tx plan. 02/09: irritable edge. medication compliant. focused on returning home. intrusive during a peer's treatment; declined to walk away when asked by staff multiple times; poor insight and judgment. pt became upset after meeting with her mother; pt stated, my mom says its my behavior why I'm still here. I think they are keeping me here because I locked myself in that room . Valium decreased to 10mg PO bedtime. 02/10: irritable. medication compliant. Perseverative on discharge. Patient reports sleeping well last night. Appears calmer today. She reports visit with her mother when well. Denies SI/HI/VH/AH. Attending groups. Continue current treatment plan. 02/11/25: Irritable, irrational regarding why she is still being here. Poor insight and poor judgment. Not thinks she has bipolar. She only believes she has has ADHD and autism, therefore she does not need to be here and that no reason to keep her here longer. As a future, she does not think she going to continue taking medication after discharge per nursing. Racing thoughts. At times she is calm, able to attend groups, and some what appropriate. Have good visit with brother and mom yesterday. Not able to discuss for medication change due to agitated/irritable mood. 02/12/25: Been sleeping well, no issue with appetite, attended groups, have visit with mom. Both mom and patient the nurse believe that patient is not manic or having any bipolar features. They only believe that she has ADHD and autism. Mom advocate for patient to be discharged. Mom claims that the treatment team has not ever reach out to her. Both of the agree to have a family meeting in the future. We will leave message to the team to set it up. Patient has some mood swing, but overall, continued to improve with help of the medication. She wants to be off from Valium, but do not want any other medication change. Both Seroquel and Valium is on Muniz order. No other safety concerns. 02/13/25: Slept well, compliant with medications, refused nicotine patch on. Observed visible and attending groups, irritable at times, hyper focused on discharge as her normal baseline of everyday. Do not want any medication change. Reports gaining 28 lb since she got here. Nutrition consult placed. We will add Adderall on allergy list which make her psychotic. Patient to nursing put it in her allergy list. Some labile mood, pressured speech. 02/14: continue current tx plan. 02/15/25: Slept well, manage meal intake, portion size, healthier snacks to control her weight gain. Met with the dietitian today. She also ask staff to pronounce the list of healthy/happy food. Family brought in some healthy snack for her. She was mad being wakened up to get vital signs in the morning by nursing staff. Denies suicidal thoughts, denies hallucinations. She asked questions regarding diagnosis. Educate her regarding psychosis that she came with. Explained with her regarding medication she has been taking here, she will be discharged with, and then work with the outpatient psychiatrist to continue with Muniz orders, making any change if necessary. She is more receptive with the plan, more rationale when she is not in the bad mood. She appreciates the time I spent talking to her today. She attended groups, visible. No ADLs issues. Can be irritable at times. Refused her propranolol in the morning. She took multivitamins later on of the day after she refused. Change nicotine patch to p.r.n.. 02/16/25: Reported that she was angry, other than that she feels mood more stable today. Nursing staff contacted this provider reported that patient in the past was allowed using the head phone at night to cancel out the noise. Patient asked if she was allowed to use it again. Patient focused on healthy food, eating yogurt only in the morning. Family brought in more seeds instead of eating unhealthy food from hospital. She also was irritable as someone touching her clothes in the washer. She has a couple visits today. She feels ready to leave and stable enough to go home to community. She is looking forward to talk to her attending this week regarding discharge. Denies other safety concerns. She has been irritable at times, but able to control her anger. She said this is her baseline, and being in here is make her more irritable. Had phones use overnight order was discontinued per policy. 02/17: calm, logical, cooperative. appearing overly controlled, unnatural in doing so. medications plan at our last meeting resurrected - start lithium, taper seroquel and valium. pt states she is open to mood stabilizers. MD informs pt he believes she lacks capacity presently and will notify syrup mixer to communicate with pt's syrup mixer. hospital syrup mixer notified. continue current mgmt for now. 02/18: corresponding with syrup mixer re stipulated agreement. pt intrusive with peers and resistant to redirection by staff. with pt is calm and cooperative, but attempting to engage in argument justifying her intrusive behavior. continue current mgmt. slept well. 02/19/25: showered in the morning, reasonable, , slept for 6 hours I was up for snack , compliant with meds except Propranonol at 1500 yesterday. She asked if she can use electric razor to trim the pubic hair which was not allowed per safety and unit policy. Continue working healthy diet and snack. 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 No major behavior issues. Sometimes ask for stuff she knows they are not allowed. Continue with the plan. 02/20: refused seroquel last night, did not receive IM back-up. appears with bizarre smile today, believes she doesn't need medications and is ready to discharge. 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 plan for lithium in lieu of valium and seroquel, ideally, reviewed. pt appears to have very poor retention, as this plan has been discussed numerous times. pt was encouraged to discuss with her syrup mixer and was given her syrup mixer's contact information ([facility] number). 02/21: talking about not taking meds once discharged. refusing meds then taking them last second prior to IM administration. labile, irritable. very disorganized today, severely impaired cognitive performance. restart valium 5 and seroquel 75 BID at 0900, 1500. otherwise continue current mgmt. awaiting word from crop grain or livestock farm manager re stipulated agreement for mood stabilizers. 02/22: Continue current regimen and plans. Orajel ordered. 02/23: Continue current plans and regimen 02/24: more organized and less oppositional, labile, intrusive, impulsive than monday. willing to take lithium. per syrup mixer, we may have a stipulated agreement. continue current mgmt for now, hoping to start lithium GIRISH. 02/25/25: Amend the treatment plan to include mood stabilizer [place] Carbonate as primary treatment at therapeutic blood levels. Organized at times but when she is more anxious, less rationale. She does not accept new add on [place] on Wei's order that is effective today it is fake, you can keep it. I need to talk to my parachute marker . why I need [place]?I do not have bipolar . She believes she has autism and ADHD only. She asked inappropriate question such as if this provider knowing what JERSON and if this provider used it before. Patient asked to get her OP therapist to involve in decision making on meds. Prior to this conversation, she was calm, showing pictures of herself and family members that she has personal space for them on the wall. Some labile mood, underline irritable but no angry outburst. At some point, she states that Seroquel added on during daytime is helping with her mood and that I was not mad when she was waken up this morning. Denies SI/SIB/HI/AVH [place] ER 600mg daily at HS for mood. With some labs ordered for lolita CMP, TSH, Free T4. 02/26/25 Slept for 8 hours, compliant with medications except lithium. Rumination, poor insight and judgment, asking inappropriate questions, thought processes not on treatment, racing, anxious, appears to be paranoid. The RN showed the new amended Wei order, she does not believe it is true and wanted fire her syrup mixer. HRO notified, met with patient. Continued to she is not bipolar, believes she has PTSD symptoms that causing her mood changes. Want this to talk to her outpatient therapist. We will arrange to make phone call for collateral. Change [place] ER from 600mg at HS to BID with IM of 5mg Valium IM back up if refuse. 02/27/25: Slept for 8 hours, compliant with medications, except for lithium-received Valium IM backup. Continued to resist to mood stabilizer, poor judgment, poor insight, do not believe she has bipolar. Nursing staff reports she was rude, inappropriate with staff, asking inappropriate questions. Racing thoughts. Request information regarding lithium. Nursing staff pronounced the handout, she has not in hand. Side effects noted. We will contact Josy BLACKBURN therapist at [phone] per patient request as she believes that her therapist should be involved in the decision making regarding diagnosis. 02/28/25: Continued to improve in sleep. Medication compliant, except for lithium yesterday morning. She took the evening dose per nursing report. Nurse's also provide patient with information related to lithium. Patient request the current [facility] order. Given a copy. She finally wants to keep it as she has been referred to review. She requests take her off from Seroquel if this provider wants her to text lithium which is unreasonable as she requests to take her off of them. Not able to rationale with her about the medication plan. Slightly having some open and accepting lithium. At home she will compliant do well with the lithium. In the future when she got into therapeutic level targeting labile mood, we can taper down on Seroquel or taper down on Valium. At this current time, due to current mental status, she can not process the information, not register in her mind for medication plans at this time. She does not trust the provider, she does not believe she has bipolar which is hard to convince her to take lithium. Labile mood, irritable and can be rude. Monitor over weakens for [place] and other medication compliant. IM back up available per Flavio' order. Attempted to call Josy [facility] therapist at [phone]. Left voices message with front tender. Waiting for a call back. 03/01: calm, cooperative, logical. still processing difficulties, but improved from last time we met. taking lithium for 2 days now, slept 8 hours overnight. decrease seroquel 75/75/400 to 50/50/300 and valium 5 BID to 4 BID. otherwise continue current mgmt. 03/02: declined interview for phone call. per staff, taking meds, accusing staff of trying to change her personality. 03/03/25: Patient slept for 7 hours, compliant with medication p.o Included lithium. Some labile mood, irritable, making accusation regarding what provider told her during assessment. She reported that she has has been calling outpatient therapist repeatedly but has not received a call back. Patient was informed that this provider also called, waiting for a call back as well. She asked why can not she take medication like this with the outpatient provider. Explained to her that she needs to be more stable before we discharge her, as now per her perception, she may feel that she is ready to go home, but other people in the treatment team do not think she is ready yet. Per nursing patient was better over the weekends, less provocative. Think we are changing her personality. We will check the lithium level on Monday morning. Been taking consistently the past 3 and half days. 03/04/25: Patient slept well, compliant with medication. Continue calling outpatient therapist herself. She has not hearing back from them. She reported that she wants to go home, therefore she will do whatever she needs to do to get home. 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 Explained to her that we will get the level tomorrow, level coming back subtherapeutic, we will increase dose of the lithium. In the meantime, we will consider to lower Seroquel down, mood is more stable. She is less labile today, attended to some groups. No safety concern. Constricted affect. Less irritable. [place] level for tomorrow morning. 03/05/25: Patient slept for 8 hours, was medication compliant. No IM backup need to be used. She has questions related to what she have to do and what is next step to get discharge. Explained the plan that we are waiting for the lithium level. If it is sub therapeutic, we will titrate until we get the therapeutic level. When she is more stable, we will plan to discharge her to outpatient provider in which she can continue taking medications. She appeared to be less labile, reasonable, more logical, able to take in information. No angry outbursts, attend his groups except when she has visiors. Continue working on healthy snack and diet. [place] level is 0.29; subtherapeutic. Increase [place] up to 900mg daily in divided dose. Recheck in 5 days 03/06/25: Patient slept for 7 hours, was medication compliant. Denies side effects. She is aware of the lithium change yesterday, and asked what the plan from now on. She agrees with the plan of lithium level in the next 5 days, and can be having some other medication adjusted. However she said she wants to leave everything the same like it is now when I was talking to her regarding benzo taper down. We will leave the same dose of benzo and Seroquel. We will revisit to see if the patient have thoughts of wanting to taper down on benzo as she is more stable. I will leave it there the way it is now so that she can have some control over her treatment. Reports to nursing that she feel a bit anxious and depressed. No argumentative, much less labile, more red rational and logical. Pacing the [place] to get steps in. Intermittently attended groups, no behavior issues. Most likely to be discharged late next week. 03/07/25: Continued to improve in mood, sleep and energy, compliant with medications, no side effects. She is more logical, more focused on treatment, continue working on healthy diet, walking the [place] to get some exercise done, no labile mood. She agree with the medication change but asked them do much of change to make her not stable and not able to go home. No argumentative, very reasonable. Denies anxiety and depression, denies safety concerns Reduce Valium 10 mg at bedtime down to 5 mg. [place] level, TSH, CMP on 03/10/25. 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
[2025-03-07 20:30] VITALS: BP 112/56; PULSE 90; RESP 16; TEMP 36.8; O2SAT 98
--- NOTE | 2025-03-08 07:52 | P.PNPSI_ITS ---
Subjective Subjective Date of Service: 03/08/25 Reason For Visit: Crisis Subjective Notes: Section 8 Interim History: patient engaged on unit. Multiple visitors today which have gone well. Looking forward to the discharge planning. Reports that mental state has significantly improved and described feeling confused prior to admission, psychosis, not sleeping. Overall thankful regarding current treatment plan and understands lithium is for mood stabilization. Also looking forward to outpatient follow-up. Sleep okay. No med concerns. Medication Compliance: Yes Side effects from medications: No Attending Groups: Yes Review of Systems Acute medical concerns: No Review of Systems Review of Systems Unremarkable Mental Status Exam Mental Status Exam Narrative: Appearance: adequately dressed and groomed Behavior: no PMA/PMR. Speech: nml amount, nml loudness. nml latency. TP: organized, linear. logical TC: Took medication PO, focus on treatment Mood: good Affect: calm, constricted AH/VH: none expressed Insight/judgment: some more improvement Memory/cog: alert, improving . Diagnostics Vital Signs (24Hr): Vital Signs - 24 hr 03/07/25 09:30 03/07/25 09:30 03/07/25 16:27 Temperature 98.1 F Pulse Rate 98 98 91 Respiratory Rate 16 Blood Pressure 119/60 119/60 119/60 Pulse Oximetry 98 Oxygen Delivery Method Room Air 03/07/25 20:30 Temperature 98.2 F Pulse Rate 90 Respiratory Rate 16 Blood Pressure 112/56 L Pulse Oximetry 98 Oxygen Delivery Method Room Air BMI result Body Mass Index 25.9 Labs 01/09/25 16:36 02/26/25 08:32 Imaging Radiology Impressions: ITS Impressions Hand X-Ray 01/16/25 11:30 IMPRESSION: Unremarkable right hand Electronically signed by: Casa Rush MD 01/16/2025 11:46 AM EDT RP Hand X-Ray 01/29/25 07:30 IMPRESSION: Unremarkable examination of the right hand. Electronically signed by: Obdulio Tolbert MD 01/30/2025 07:56 AM EDT RP Medications Medications Current Medications Acetaminophen (Acetaminophen 325 Mg Tablet) 650 mg PO Q6H PRN PRN Reason: Headache/Pain, Scale 1-10 Last Admin: 03/06/25 08:55 Dose: 650 mg Al Hydroxide/Mg Hydroxide (Magnesium Hydrox/Alum Hydrox 30 Ml Oral.Susp) 30 ml PO Q6H PRN PRN Reason: Heartburn/Nausea Last Admin: 01/30/25 14:06 Dose: 30 ml Artificial Tears (Artificial Tears 15 Ml Drops) 2 drop EYE-BOTH Q4H PRN PRN Reason: Dry Eyes Last Admin: 02/06/25 09:24 Dose: 2 drop Benzocaine (Benzocaine 20 % Oral Gel 14 Gm Tube) 1 appl MUCOUS MEM QID PRN; Protocol PRN Reason: Pain, Mild 1-3,fever,headache Last Admin: 03/06/25 22:10 Dose: 1 appl Calcium Carbonate/Cholecalciferol (Calcium + Vitamin D 250 Mg Tablet) 250 mg PO BIDWM [facility] Last Admin: 03/07/25 16:26 Dose: 250 mg Diazepam (Diazepam 5 Mg Tablet) 5 mg PO Q4H PRN PRN Reason: agitation Last Admin: 02/18/25 08:48 Dose: 5 mg Diazepam (Diazepam 10 Mg/2 Ml Cartridge) 5 mg IM TID PRN PRN Reason: refuse [place] and Valium Last Admin: 02/27/25 09:00 Dose: 5 mg Diazepam (Diazepam 2 Mg Tablet) 4 mg PO BID@0900,1500 [facility] Last Admin: 03/07/25 16:26 Dose: 4 mg Diazepam (Diazepam 5 Mg Tablet) 5 mg PO BEDTIME [facility] Last Admin: 03/07/25 20:45 Dose: 5 mg Docusate Sodium (Docusate Sodium 100 Mg Capsule) 100 mg PO BID PRN PRN Reason: Constipation Last Admin: 01/30/25 20:10 Dose: 100 mg Haloperidol Lactate (Haloperidol Lactate 5 Mg/Ml Vial) 5 mg IM TID PRN PRN Reason: refusal of scheduled seroquel Last Admin: 02/04/25 20:14 Dose: 5 mg Hydrocortisone (Hydrocortisone 2.5 % Rectal Cr 30 Gm Tube) 1 appl RI DAILY PRN PRN Reason: hemrroids Last Admin: 01/26/25 14:57 Dose: 1 appl Lidocaine (Lidocaine 4 % Patch Adh..Patch) 1 patch TRANSDERMA DAILY [facility]; Protocol Last Admin: 03/07/25 12:10 Dose: 1 patch [place] Carbonate ([place] Carbonate Er 300 Mg Tablet.Er) 300 mg PO BID [facility] Last Admin: 03/07/25 20:45 Dose: 300 mg [place] Carbonate ([place] Carbonate Er 300 Mg Tablet.Er) 300 mg PO BEDTIME [facility] Last Admin: 03/07/25 20:45 Dose: 300 mg Magnesium Hydroxide (Milk Of Magnesia 30 Ml Oral.Susp) 30 ml PO DAILY PRN PRN Reason: Constipation Last Admin: 01/26/25 14:59 Dose: 30 ml Multivitamins/Vitamin C (Multivitamin Tablet) 1 tab PO DAILY [facility] Last Admin: 03/07/25 09:31 Dose: 1 tab Nicotine (Nicotine 7 Mg Patch.Td24) 7 mg TRANSDERMA DAILY PRN PRN Reason: Nicotine craving Nicotine Polacrilex (Nicotine Polacrilex 2 Mg Gum) 4 mg BUCCAL Q2H PRN PRN Reason: Nicotine Cravings Last Admin: 02/21/25 17:26 Dose: 4 mg Polyethylene Glycol (Polyethylene Glycol 3350 17 Gm Powd.Pack) 17 gm PO DAILY PRN PRN Reason: constipation Prazosin HCl (Prazosin Hcl 1 Mg Capsule) 1 mg PO BEDTIME [facility]; Protocol Last Admin: 03/07/25 20:46 Dose: 1 mg Propranolol HCl (Propranolol Hcl 10 Mg Tablet) 10 mg PO TID [facility]; Protocol Last Admin: 03/07/25 20:46 Dose: 10 mg Quetiapine Fumarate (Quetiapine Fumarate 50 Mg Tablet) 50 mg PO BID@0900,1500 [facility] Last Admin: 03/07/25 16:27 Dose: 50 mg Quetiapine Fumarate (Quetiapine Fumarate 300 Mg Tablet) 300 mg PO BEDTIME [facility] Last Admin: 03/07/25 20:46 Dose: 300 mg Allergies Allergies Allergy/AdvReac Type Severity Reaction Status Date / Time amphetamine (From Adderall) Allergy Severe psychosis/ Verified 02/13/25 22:40 Manic dextroamphetamine (From Allergy Severe psychosis/ Verified 02/13/25 22:40 Adderall) Manic olanzapine (From Zyprexa) AdvReac Rash Verified 12/31/24 18:41 Assessment & Plan Assessment & Plan (1) Psychosis: Status: Acute Code(s): F29 - Unspecified psychosis not due to a substance or known physiological condition Plan Ms. Sheridan is a 34 year-old woman who presents with s/s of psychosis, disorganized, some degree of paranoia. She had similar episode back in 2020. 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 I do suspect that there may be underlying psychiatric disorder that is triggered by amphetamine use but not necessarily caused by it. Further evaluation to clarify dx is needed. We discussed inpt level of care. We also discussed restarting risperidone 1mg po BID. low dose clonazepam. continue clonidine. 1. IPLOC 2. start risperidone 1mg po BID. Clonazepam 0.5mg po BID. 01/05: Continue current regimen and plans. 01/06: slept only 2 hours, disorganized, decompensated behaviors. unable to interact cogently. refusing risperidone, will offer seroquel instead. possible bipolar diathesis, T/C mood stabilizer. delirium also a possibility, as the mental status change since admission appears to be striking. 01/07: took seroquel 200 last night, slept 5.5 hours. more organized, linear, able to engage today. continue current mgmt. 01/08: refused seroquel last NOC, slept only 30 minutes. agitated, bizarre, disorganized today. commitment paperwork filed. 01/09: refused meds yesterday but got IMs due to behaviors (outbursts, touching peers, yelling, banging doors, pushed her sitter, climbing on tables and chairs. threatening to stab self with pens). more linear and engageable today, once again the day after having takenm medication. agrees to continue to take seroquel 200 mg QHS. 01/10: took seroquel last NOC and slept 4 hours overnight, but bizarre today. less agitation and intrusiveness than yesterday, but still bizarre and fairly intrusive. pt appears willing to take risperidone, will DC seroquel and return to dosing of risperidone 2 mg BID. took first dose this afternoon. court next monday. 01/11 very paranoid, fearful, taking medications 01/12 continue tx. 01/13: appears a bit more organized today than when not taking medications, although slow and processing poorly. declines to sign CV. commitment hearing tomorrow. 01/14: hearing continued until 01/24 for SINDY. add klonopin 0.5 BID ODT, change risperidone formulation to liquid (pt has been inducing vomiting repeatedly with toothbrush). hold toothbrush unless actively brushing teeth. continues interactive to some extent with MD today, but has been grabbing badges, touching others, and tried to vault into the nursing station in the past 24H. 01/15: IM medication after threatening to punch staff nurse midwife with intrusive and aggressive behaviors toward peers. pt did not take klonopin as ordered yesterday. DC klonopin and start VPA 500 BID. per staff, running. tried to make herself vomit after taking PRN. labile. ate her feces in the shower and tried to feed it to her 1:1. crawling under tables. tried to jump into nurses station x2. took her shirt off and swinging it around. did not sleep at all. slept at 7:30am. 01/16: refusing VPA, taking risperidone. napped after IMs yesterday. has been bizarre and labile since. slept only 2 hours overnight. continue current mgmt. 01/17: agitated, bizarre, and aggressive behaviors yesterday (punching and kicking beard, stripping off in milieu, attempting to intimidate staff, grabbing stress balls out of staff's hands). did take VPA this morning on its being offered a second time. more calm today. taking risperidone. 01/18: intermittently refusing VPA, seems to be taking risperidone. asks MD if he is alive, then proposes elbow bump. accusing staff of stealing her things (phone), calling mother and cellulose insulation helper in the middle of the night. slept less than 4 hours. 01/19: more lucid today. concerned about risperidone weight gain. agrees to DC risperidone and try prolixin instead, starting at 2.5 BID. 01/20: very disorganized, bizarre, psychotic today. likely due to equivalent dosing of prolixin being given much lower than prior risperidone. as pt seems to be tolerating prolixin without issues, increase prolixin dosing from 2.5 BID to 5 BID. otherwise continue current mgmt. 01/21: less bizarre and disorganized, but still quite ill. variably compliant with medications. c/o leg pain, lowering self to floor; started cogentin 0.5 BID due to concern for dystonia. c/o nightmares, h/o prazosin with good effect. add prazosin 1 mg QHS as of tonight. 01/22: Patients states that she is good. She is scared of [place] herpes after having sex. She refused to participate in an interview with this provider, and walked away stating i don't need a provider. She was observed by this provider, pacing the [place]. Continue current treatment regimen. 01/23: disorganized and dangerous behaviors. voluntarily took IMs. court tomorrow. 01/24: remains disorganized. ran into staff member yesterday, postured and threatened other staff afterward. slept about 6.[address] this afternoon. 01/25/25: Staff 5 6 hours with broken sleep. Compliant with medication with lots of encouragement from yesterday, refused her vitamins in the morning. CT scan was negative, she fell early in the morning, witness her head hit the wall the trying to put her pants on. Slightly improved in mood with medication compliant. VPA level is 52,1 low side. However patient not consistently take it every day. We will recheck. He is on section 8. Pending Wei's order. Less irritable, less racing. 01/26/25: Mostly compliant with medication, to 250/750 mg of Depakote scheduled at bedtime. Labile, restless, poor boundaries, sexually inappropriate behavior, mood is aggravated . Disorganized. Slightly improving but not much. She is better in terms of compliant with medications. 01/27: mostly compliant with meds. improved from last week, more organized and less labile today. agreement reached on medications, reinstate risperidone as primary antipsychotic Tx, remove request for mood stabilizers, remove ativan. DC prolixin, begin taper of VPA, restart risperidone 2 BID, add thorazine 100 and valium 10 at HS to encourage sleep. awaiting med order. 01/28: last evening was pushing, attempting to kick and bite staff, shoulder- checked peer, exposing genitalia to 1:1 staff. took meds last night and this morning. court order received today, reviewed, medications adjusted to comply with order. reportedly more linear today, but pt declined to meet with MD after brief psychotic interaction with MD. 01/29: dysregulated, agitated behaviors continue last night. calmer days. refused VPA this morning. continue VPA taper, decrease from 500 BID to 250 TID as of today. increase HS seroquel from 300 mg to 400 mg as of vic and HS valium from 10 mg to 15 mg as of tonight for sleep and sylwia. 01/30: same pattern of calm days through mid-afternoon, then decompensation. add third scheduled dosing of risperidone in the middle of the day, schedule valium in the morning and at 3 pm, otherwise continue current mgmt. increase HS seroquel if pt does not sleep more than several hours tonight. continue VPA taper tomorrow. 01/31: calm, morning. severe akathisia eves, unable to sleep or remain still. slept only 2.5 hours. due to 4 mg risperidone daily being inadequate to treat Sx and 6 mg causing severe akathisia, will DC risperidone in favor of a less potent antipsychotic, seroquel. schedule seroquel 100/100/500. taper VPA to 250 BID as of tomorrow. propranolol 20 TID started last night for akathisia, will continue for now. 02/01: no change - monitor akathisia decrease on new regimen 02/02: nicotine patch taper to 7 mg; seems to be doing better with switch to Seroquel and augmentation with Propranolol; primary team may f/u with further discussion of behavioral plan 02/03: much improved from last week. calm, linear, logical, topical. slept 6 hours each the last 3 nights. c/o sedation. decrease daytime valium from 5 BID to 2 BID. decrease daytime seroquel from 100 BID to 75 BID. taper VPA from 250 BID to 250 QHS. 02/04: remains much improved. no overt MSE abnormalities. c/o sedation, decrease seroquel from 75 BID to 50 BID and from 500 QHS to 400 QHS. DC VPA entirely. otherwise continue current mgmt. 02/05: backsliding today. irritable, erratic, more disorganized, labile. stating her intent to stop taking medications, demanding discharge. continue current mgmt. 02/06: much improved today. calm, logical, cogent and topical. pt would like to taper off of valium (addicting) and onto a proper mood stabilizer. legal contracts specialist notified. DC daytime valium. restart prazosin due to c/o nightmares. decrease propranolol from 20 TID to 10 TID (should no longer be necessary as off of medications likely to cause akathisia). DC daytime seroquel tomorrow. 02/07: similar conversation to yesterday. WI daytime seroquel. awaiting word from legal re adding lithium. otherwise continue current mgmt. 02/08: keeping to self. irritable edge. pt reports feeling overwhelmed d/t room change. medication compliant. focused on returning home. denies SI/HI/VH/AH. per nursing, slept 6 hours last night. continue current tx plan. 02/09: irritable edge. medication compliant. focused on returning home. intrusive during a peer's treatment; declined to walk away when asked by staff multiple times; poor insight and judgment. pt became upset after meeting with her mother; pt stated, my mom says its my behavior why I'm still here. I think they are keeping me here because I locked myself in that room . Valium decreased to 10mg PO bedtime. 02/10: irritable. medication compliant. Perseverative on discharge. Patient reports sleeping well last night. Appears calmer today. She reports visit with her mother when well. Denies SI/HI/VH/AH. Attending groups. Continue current treatment plan. 02/11/25: Irritable, irrational regarding why she is still being here. Poor insight and poor judgment. Not thinks she has bipolar. She only believes she has has ADHD and autism, therefore she does not need to be here and that no reason to keep her here longer. As a future, she does not think she going to continue taking medication after discharge per nursing. Racing thoughts. At times she is calm, able to attend groups, and some what appropriate. Have good visit with brother and mom yesterday. Not able to discuss for medication change due to agitated/irritable mood. 02/12/25: Been sleeping well, no issue with appetite, attended groups, have visit with mom. Both mom and patient the nurse believe that patient is not manic or having any bipolar features. They only believe that she has ADHD and autism. Mom advocate for patient to be discharged. Mom claims that the treatment team has not ever reach out to her. Both of the agree to have a family meeting in the future. We will leave message to the team to set it up. Patient has some mood swing, but overall, continued to improve with help of the medication. She wants to be off from Valium, but do not want any other medication change. Both Seroquel and Valium is on [facility] order. No other safety concerns. 02/13/25: Slept well, compliant with medications, refused nicotine patch on. Observed visible and attending groups, irritable at times, hyper focused on discharge as her normal baseline of everyday. Do not want any medication change. Reports gaining 28 lb since she got here. Nutrition consult placed. We will add Adderall on allergy list which make her psychotic. Patient to nursing put it in her allergy list. Some labile mood, pressured speech. 02/14: continue current tx plan. 02/15/25: Slept well, manage meal intake, portion size, healthier snacks to control her weight gain. Met with the dietitian today. She also ask staff to pronounce the list of healthy/happy food. Family brought in some healthy snack for her. She was mad being wakened up to get vital signs in the morning by nursing staff. Denies suicidal thoughts, denies hallucinations. She asked questions regarding diagnosis. Educate her regarding psychosis that she came with. Explained with her regarding medication she has been taking here, she will be discharged with, and then work with the outpatient psychiatrist to continue with [facility] orders, making any change if necessary. She is more receptive with the plan, more rationale when she is not in the bad mood. She appreciates the time I spent talking to her today. She attended groups, visible. No ADLs issues. Can be irritable at times. Refused her propranolol in the morning. She took multivitamins later on of the day after she refused. Change nicotine patch to p.r.n.. 02/16/25: Reported that she was angry, other than that she feels mood more stable today. Nursing staff contacted this provider reported that patient in the past was allowed using the head phone at night to cancel out the noise. Patient asked if she was allowed to use it again. Patient focused on healthy food, eating yogurt only in the morning. Family brought in more seeds instead of eating unhealthy food from hospital. She also was irritable as someone touching her clothes in the washer. She has a couple visits today. She feels ready to leave and stable enough to go home to community. She is looking forward to talk to her attending this week regarding discharge. Denies other safety concerns. She has been irritable at times, but able to control her anger. She said this is her baseline, and being in here is make her more irritable. Had phones use overnight order was discontinued per policy. 02/17: calm, logical, cooperative. appearing overly controlled, unnatural in doing so. medications plan at our last meeting resurrected - start lithium, taper seroquel and valium. pt states she is open to mood stabilizers. informs pt he believes she lacks capacity presently and will notify insurance defense attorney to communicate with pt's insurance defense attorney. hospital insurance defense attorney notified. continue current mgmt for now. 02/18: corresponding with insurance defense attorney re stipulated agreement. pt intrusive with peers and resistant to redirection by staff. with MD pt is calm and cooperative, but attempting to engage in argument justifying her intrusive behavior. continue current mgmt. slept well. 02/19/25: showered in the morning, reasonable, , slept for 6 hours I was up for snack , compliant with meds except Propranonol at 1500 yesterday. She asked if she can use electric razor to trim the pubic hair which was not allowed per safety and unit policy. Continue working healthy diet and snack. 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 No major behavior issues. Sometimes ask for stuff she knows they are not allowed. Continue with the plan. 02/20: refused seroquel last night, did not receive IM back-up. appears with bizarre smile today, believes she doesn't need medications and is ready to discharge. 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 plan for lithium in lieu of valium and seroquel, ideally, reviewed. pt appears to have very poor retention, as this plan has been discussed numerous times. pt was encouraged to discuss with her insurance defense attorney and was given her insurance defense attorney's contact information ([facility] number). 02/21: talking about not taking meds once discharged. refusing meds then taking them last second prior to IM administration. labile, irritable. very disorganized today, severely impaired cognitive performance. restart valium 5 and seroquel 75 BID at 0900, 1500. otherwise continue current mgmt. awaiting word from entry level mechanical engineer re stipulated agreement for mood stabilizers. 02/22: Continue current regimen and plans. Orajel ordered. 02/23: Continue current plans and regimen 02/24: more organized and less oppositional, labile, intrusive, impulsive than monday. willing to take lithium. per insurance defense attorney, we may have a stipulated agreement. continue current mgmt for now, hoping to start lithium GIRISH. 02/25/25: Amend the treatment plan to include mood stabilizer [place] Carbonate as primary treatment at therapeutic blood levels. Organized at times but when she is more anxious, less rationale. She does not accept new add on [place] on Wei's order that is effective today it is fake, you can keep it. I need to talk to my cellulose insulation helper . why I need [place]?I do not have bipolar . She believes she has autism and ADHD only. She asked inappropriate question such as if this provider knowing what JERSON and if this provider used it before. Patient asked to get her OP therapist to involve in decision making on meds. Prior to this conversation, she was calm, showing pictures of herself and family members that she has personal space for them on the wall. Some labile mood, underline irritable but no angry outburst. At some point, she states that Seroquel added on during daytime is helping with her mood and that I was not mad when she was waken up this morning. Denies SI/SIB/HI/AVH [place] ER 600mg daily at HS for mood. With some labs ordered for lolita CMP, TSH, Free T4. 02/26/25 Slept for 8 hours, compliant with medications except lithium. Rumination, poor insight and judgment, asking inappropriate questions, thought processes not on treatment, racing, anxious, appears to be paranoid. The RN showed the new amended Wei order, she does not believe it is true and wanted fire her insurance defense attorney. HRO notified, met with patient. Continued to she is not bipolar, believes she has PTSD symptoms that causing her mood changes. Want this to talk to her outpatient therapist. We will arrange to make phone call for collateral. Change [place] ER from 600mg at HS to BID with IM of 5mg Valium IM back up if refuse. 02/27/25: Slept for 8 hours, compliant with medications, except for lithium- received Valium IM backup. Continued to resist to mood stabilizer, poor judgment, poor insight, do not believe she has bipolar. Nursing staff reports she was rude, inappropriate with staff, asking inappropriate questions. Racing thoughts. Request information regarding lithium. Nursing staff pronounced the handout, she has not in hand. Side effects noted. We will contact Josy BLACKBURN therapist at [phone] per patient request as she believes that her therapist should be involved in the decision making regarding diagnosis. 02/28/25: Continued to improve in sleep. Medication compliant, except for lithium yesterday morning. She took the evening dose per nursing report. Nurse's also provide patient with information related to lithium. Patient request the current Muniz order. Given a copy. She finally wants to keep it as she has been referred to review. She requests take her off from Seroquel if this provider wants her to text lithium which is unreasonable as she requests to take her off of them. Not able to rationale with her about the medication plan. Slightly having some open and accepting lithium. At home she will compliant do well with the lithium. In the future when she got into therapeutic level targeting labile mood, we can taper down on Seroquel or taper down on Valium. At this current time, due to current mental status, she can not process the information, not register in her mind for medication plans at this time. She does not trust the provider, she does not believe she has bipolar which is hard to convince her to take lithium. Labile mood, irritable and can be rude. Monitor over weakens for [place] and other medication compliant. IM back up available per Flavio' order. Attempted to call Josy Rich at [phone]. Left voices message with front counter clerk. Waiting for a call back. 03/01: calm, cooperative, logical. still processing difficulties, but improved from last time we met. taking lithium for 2 days now, slept 8 hours overnight. decrease seroquel 75/75/400 to 50/50/300 and valium 5 BID to 4 BID. otherwise continue current mgmt. 03/02: declined interview for phone call. per staff, taking meds, accusing staff of trying to change her personality. 03/03/25: Patient slept for 7 hours, compliant with medication p.o Included lithium. Some labile mood, irritable, making accusation regarding what provider told her during assessment. She reported that she has has been calling outpatient therapist repeatedly but has not received a call back. Patient was informed that this provider also called, waiting for a call back as well. She asked why can not she take medication like this with the outpatient provider. Explained to her that she needs to be more stable before we discharge her, as now per her perception, she may feel that she is ready to go home, but other people in the treatment team do not think she is ready yet. Per nursing patient was better over the weekends, less provocative. Think we are changing her personality. We will check the lithium level on Monday morning. Been taking consistently the past 3 and half days. 03/04/25: Patient slept well, compliant with medication. Continue calling outpatient therapist herself. She has not hearing back from them. She reported that she wants to go home, therefore she will do whatever she needs to do to get home. 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 Explained to her that we will get the level tomorrow, level coming back subtherapeutic, we will increase dose of the lithium. In the meantime, we will consider to lower Seroquel down, mood is more stable. She is less labile today, attended to some groups. No safety concern. Constricted affect. Less irritable. [place] level for tomorrow morning. 03/05/25: Patient slept for 8 hours, was medication compliant. No IM backup need to be used. She has questions related to what she have to do and what is next step to get discharge. Explained the plan that we are waiting for the lithium level. If it is sub therapeutic, we will titrate until we get the therapeutic level. When she is more stable, we will plan to discharge her to outpatient provider in which she can continue taking medications. She appeared to be less labile, reasonable, more logical, able to take in information. No angry outbursts, attend his groups except when she has visiors. Continue working on healthy snack and diet. [place] level is 0.29; subtherapeutic. Increase [place] up to 900mg daily in divided dose. Recheck in 5 days 03/06/25: Patient slept for 7 hours, was medication compliant. Denies side effects. She is aware of the lithium change yesterday, and asked what the plan from now on. She agrees with the plan of lithium level in the next 5 days, and can be having some other medication adjusted. However she said she wants to leave everything the same like it is now when I was talking to her regarding benzo taper down. We will leave the same dose of benzo and Seroquel. We will revisit to see if the patient have thoughts of wanting to taper down on benzo as she is more stable. I will leave it there the way it is now so that she can have some control over her treatment. Reports to nursing that she feel a bit anxious and depressed. No argumentative, much less labile, more red rational and logical. Pacing the [place] to get steps in. Intermittently attended groups, no behavior issues. Most likely to be discharged late next week. 03/07/25: Continued to improve in mood, sleep and energy, compliant with medications, no side effects. She is more logical, more focused on treatment, continue working on healthy diet, walking the [place] to get some exercise done, no labile mood. She agree with the medication change but asked them do much of change to make her not stable and not able to go home. No argumentative, very reasonable. Denies anxiety and depression, denies safety concerns Reduce Valium 10 mg at bedtime down to 5 mg. [place] level, TSH, CMP on 03/10/25. 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 [place] level 03/10/2025 Reason for continued inpatient stay Substantial Risk for: rapid decompensation Time Spent With Patient Time: Total time managing care of this patient today ____ minutes.
[2025-03-08 09:28] VITALS: BP 122/81; PULSE 88; RESP 16; TEMP 36.9; O2SAT 98
[2025-03-08] MEDS: Calcium + Vitamin D 250 MG TABLET PO ×2 (09:29→16:59)
[2025-03-08] MEDS: Lidocaine 4 % Patch ADH..PATCH 1 PATCH TRANSDERMA (09:31)
[2025-03-08 14:42] VITALS: BP 111/57; PULSE 100
[2025-03-08 21:30] VITALS: BP 114/57; PULSE 95; RESP 16; TEMP 36.8; O2SAT 99
[2025-03-09 08:32] VITALS: BP 117/59; PULSE 110; TEMP 36.8; O2SAT 95
[2025-03-09] MEDS: Calcium + Vitamin D 250 MG TABLET PO ×2 (08:33→17:06)
[2025-03-09] MEDS: Lidocaine 4 % Patch ADH..PATCH 1 PATCH TRANSDERMA (08:34)
--- NOTE | 2025-03-09 10:26 | P.PNPSI_ITS ---
Subjective Subjective Date of Service: 03/09/25 Reason For Visit: Crisis Interim History: Doing well. Engaged. Attending groups. Looking forward to discharge planning and eager to clarify she would like to maintain current therapist and that agency and have a change of prescriber within the same agency (attributes med changes pre admission as reason for decompensation etc..) and ok seeing different prescriber remotely if needed as long as they can maintain their current therapist. Mood good. Sleep energy and appetite good. No med concerns and looking forward to lithium level tomorrow. Medication Compliance: Yes Side effects from medications: No Attending Groups: Yes Review of Systems Acute medical concerns: No Review of Systems Review of Systems Unremarkable Mental Status Exam Mental Status Exam Narrative: Appearance: adequately dressed and groomed Behavior: no PMA/PMR. Speech: nml amount, nml loudness. nml latency. TP: organized, linear. logical TC: Took medication PO, focus on treatment Mood: good Affect: calm, constricted AH/VH: none expressed Insight/judgment: good Memory/cog: alert, improving . Diagnostics Vital Signs (24Hr): Vital Signs - 24 hr 03/08/25 14:42 03/08/25 21:30 03/09/25 08:32 Temperature 98.3 F 98.2 F Pulse Rate 100 95 110 H Respiratory Rate 16 Blood Pressure 111/57 L 114/57 L 117/59 L Pulse Oximetry 99 95 Oxygen Delivery Method Room Air Room Air BMI result Body Mass Index 25.9 Labs 01/09/25 16:36 02/26/25 08:32 Imaging Radiology Impressions: ITS Impressions Hand X-Ray 01/16/25 11:30 IMPRESSION: Unremarkable right hand Electronically signed by: Casa Rush MD 01/16/2025 11:46 AM EDT RP Hand X-Ray 01/29/25 07:30 IMPRESSION: Unremarkable examination of the right hand. Electronically signed by: Obdulio Tolbert MD 01/30/2025 07:56 AM EDT RP Medications Medications Current Medications Acetaminophen (Acetaminophen 325 Mg Tablet) 650 mg PO Q6H PRN PRN Reason: Headache/Pain, Scale 1-10 Last Admin: 03/06/25 08:55 Dose: 650 mg Al Hydroxide/Mg Hydroxide (Magnesium Hydrox/Alum Hydrox 30 Ml Oral.Susp) 30 ml PO Q6H PRN PRN Reason: Heartburn/Nausea Last Admin: 01/30/25 14:06 Dose: 30 ml Artificial Tears (Artificial Tears 15 Ml Drops) 2 drop EYE-BOTH Q4H PRN PRN Reason: Dry Eyes Last Admin: 02/06/25 09:24 Dose: 2 drop Benzocaine (Benzocaine 20 % Oral Gel 14 Gm Tube) 1 appl MUCOUS MEM QID PRN; Protocol PRN Reason: Pain, Mild 1-3,fever,headache Last Admin: 03/06/25 22:10 Dose: 1 appl Calcium Carbonate/Cholecalciferol (Calcium + Vitamin D 250 Mg Tablet) 250 mg PO BIDWM FOR[facility]LY [facility], [facility] Last Admin: 03/09/25 08:33 Dose: 250 mg Diazepam (Diazepam 5 Mg Tablet) 5 mg PO Q4H PRN PRN Reason: agitation Last Admin: 02/18/25 08:48 Dose: 5 mg Diazepam (Diazepam 10 Mg/2 Ml Cartridge) 5 mg IM TID PRN PRN Reason: refuse [place] and Valium Last Admin: 02/27/25 09:00 Dose: 5 mg Diazepam (Diazepam 2 Mg Tablet) 4 mg PO BID@0900,1500 [facility], [facility] Last Admin: 03/09/25 08:33 Dose: 4 mg Diazepam (Diazepam 5 Mg Tablet) 5 mg PO BEDTIME [facility] Last Admin: 03/08/25 21:39 Dose: 5 mg Docusate Sodium (Docusate Sodium 100 Mg Capsule) 100 mg PO BID PRN PRN Reason: Constipation Last Admin: 01/30/25 20:10 Dose: 100 mg Haloperidol Lactate (Haloperidol Lactate 5 Mg/Ml Vial) 5 mg IM TID PRN PRN Reason: refusal of scheduled seroquel Last Admin: 02/04/25 20:14 Dose: 5 mg Hydrocortisone (Hydrocortisone 2.5 % Rectal Cr 30 Gm Tube) 1 appl MO DAILY PRN PRN Reason: hemrroids Last Admin: 01/26/25 14:57 Dose: 1 appl Lidocaine (Lidocaine 4 % Patch Adh..Patch) 1 patch TRANSDERMA DAILY [facility], [facility]; Protocol Last Admin: 03/09/25 08:34 Dose: 1 patch [place] Carbonate ([place] Carbonate Er 300 Mg Tablet.Er) 300 mg PO BID [facility] Last Admin: 03/09/25 08:33 Dose: 300 mg [place] Carbonate ([place] Carbonate Er 300 Mg Tablet.Er) 300 mg PO BEDTIME VERONICA Last Admin: 03/08/25 21:40 Dose: 300 mg Magnesium Hydroxide (Milk Of Magnesia 30 Ml Oral.Susp) 30 ml PO DAILY PRN PRN Reason: Constipation Last Admin: 01/26/25 14:59 Dose: 30 ml Multivitamins/Vitamin C (Multivitamin Tablet) 1 tab PO DAILY VERONICA Last Admin: 03/09/25 08:34 Dose: 1 tab Nicotine (Nicotine 7 Mg Patch.Td24) 7 mg TRANSDERMA DAILY PRN PRN Reason: Nicotine craving Nicotine Polacrilex (Nicotine Polacrilex 2 Mg Gum) 4 mg BUCCAL Q2H PRN PRN Reason: Nicotine Cravings Last Admin: 02/21/25 17:26 Dose: 4 mg Polyethylene Glycol (Polyethylene Glycol 3350 17 Gm Powd.Pack) 17 gm PO DAILY PRN PRN Reason: constipation Prazosin HCl (Prazosin Hcl 1 Mg Capsule) 1 mg PO BEDTIME VERONICA; Protocol Last Admin: 03/08/25 21:40 Dose: 1 mg Propranolol HCl (Propranolol Hcl 10 Mg Tablet) 10 mg PO TID VERONICA; Protocol Last Admin: 03/09/25 08:34 Dose: 10 mg Quetiapine Fumarate (Quetiapine Fumarate 50 Mg Tablet) 50 mg PO BID@0900,1500 VERONICA Last Admin: 03/09/25 08:33 Dose: 50 mg Quetiapine Fumarate (Quetiapine Fumarate 300 Mg Tablet) 300 mg PO BEDTIME VERONICA Last Admin: 03/08/25 21:39 Dose: 300 mg Allergies Allergies Allergy/AdvReac Type Severity Reaction Status Date / Time amphetamine (From Adderall) Allergy Severe psychosis/ Verified 02/13/25 22:40 Manic dextroamphetamine (From Allergy Severe psychosis/ Verified 02/13/25 22:40 Adderall) Manic olanzapine (From Zyprexa) AdvReac Rash Verified 12/31/24 18:41 Assessment & Plan Assessment & Plan (1) Psychosis: Status: Acute Code(s): F29 - Unspecified psychosis not due to a substance or known physiological condition Plan Ms. Sheridan is a 34 year-old woman who presents with s/s of psychosis, disorganized, some degree of paranoia. She had similar episode back in 2020. 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 I do suspect that there may be underlying psychiatric disorder that is triggered by amphetamine use but not necessarily caused by it. Further evaluation to clarify dx is needed. We discussed inpt level of care. We also discussed restarting risperidone 1mg po BID. low dose clonazepam. continue clonidine. 1. IPLOC 2. start risperidone 1mg po BID. Clonazepam 0.5mg po BID. 01/05: Continue current regimen and plans. 01/06: slept only 2 hours, disorganized, decompensated behaviors. unable to interact cogently. refusing risperidone, will offer seroquel instead. possible bipolar diathesis, T/C mood stabilizer. delirium also a possibility, as the mental status change since admission appears to be striking. 01/07: took seroquel 200 last night, slept 5.5 hours. more organized, linear, able to engage today. continue current mgmt. 01/08: refused seroquel last NOC, slept only 30 minutes. agitated, bizarre, disorganized today. commitment paperwork filed. 01/09: refused meds yesterday but got IMs due to behaviors (outbursts, touching peers, yelling, banging doors, pushed her sitter, climbing on tables and chairs. threatening to stab self with pens). more linear and engageable today, once again the day after having takenm medication. agrees to continue to take seroquel 200 mg QHS. 01/10: took seroquel last NOC and slept 4 hours overnight, but bizarre today. less agitation and intrusiveness than yesterday, but still bizarre and fairly intrusive. pt appears willing to take risperidone, will DC seroquel and return to dosing of risperidone 2 mg BID. took first dose this afternoon. court next monday. 01/11 very paranoid, fearful, taking medications 01/12 continue tx. 01/13: appears a bit more organized today than when not taking medications, although slow and processing poorly. declines to sign CV. commitment hearing tomorrow. 01/14: hearing continued until 01/24 for SINDY. add klonopin 0.5 BID ODT, change risperidone formulation to liquid (pt has been inducing vomiting repeatedly with toothbrush). hold toothbrush unless actively brushing teeth. continues interactive to some extent with MD today, but has been grabbing badges, touching others, and tried to vault into the nursing station in the past 24H. 01/15: IM medication after threatening to punch staff radiographer with intrusive and aggressive behaviors toward peers. pt did not take klonopin as ordered yesterday. DC klonopin and start VPA 500 BID. per staff, running. tried to make herself vomit after taking PRN. labile. ate her feces in the shower and tried to feed it to her 1:1. crawling under tables. tried to jump into nurses station x2. took her shirt off and swinging it around. did not sleep at all. slept at 7:30am. 01/16: refusing VPA, taking risperidone. napped after IMs yesterday. has been bizarre and labile since. slept only 2 hours overnight. continue current mgmt. 01/17: agitated, bizarre, and aggressive behaviors yesterday (punching and kicking beard, stripping off in milieu, attempting to intimidate staff, grabbing stress balls out of staff's hands). did take VPA this morning on its being offered a second time. more calm today. taking risperidone. 01/18: intermittently refusing VPA, seems to be taking risperidone. asks MD if he is alive, then proposes elbow bump. accusing staff of stealing her things (phone), calling mother and real estate lawyer in the middle of the night. slept less than 4 hours. 01/19: more lucid today. concerned about risperidone weight gain. agrees to DC risperidone and try prolixin instead, starting at 2.5 BID. 01/20: very disorganized, bizarre, psychotic today. likely due to equivalent dosing of prolixin being given much lower than prior risperidone. as pt seems to be tolerating prolixin without issues, increase prolixin dosing from 2.5 BID to 5 BID. otherwise continue current mgmt. 01/21: less bizarre and disorganized, but still quite ill. variably compliant with medications. c/o leg pain, lowering self to floor; started cogentin 0.5 BID due to concern for dystonia. c/o nightmares, h/o prazosin with good effect. add prazosin 1 mg QHS as of tonight. 01/22: Patients states that she is good. She is scared of [place] herpes after having sex. She refused to participate in an interview with this provider, and walked away stating i don't need a provider. She was observed by this provider, pacing the [place]. Continue current treatment regimen. 01/23: disorganized and dangerous behaviors. voluntarily took IMs. court tomorrow. 01/24: remains disorganized. ran into staff member yesterday, postured and threatened other staff afterward. slept about 6.[address] this afternoon. 01/25/25: Staff 5 6 hours with broken sleep. Compliant with medication with lots of encouragement from yesterday, refused her vitamins in the morning. CT scan was negative, she fell early in the morning, witness her head hit the wall the trying to put her pants on. Slightly improved in mood with medication compliant. VPA level is 52,1 low side. However patient not consistently take it every day. We will recheck. He is on section 8. Pending Wei's order. Less irritable, less racing. 01/26/25: Mostly compliant with medication, to 250/750 mg of Depakote scheduled at bedtime. Labile, restless, poor boundaries, sexually inappropriate behavior, mood is aggravated . Disorganized. Slightly improving but not much. She is better in terms of compliant with medications. 01/27: mostly compliant with meds. improved from last week, more organized and less labile today. agreement reached on medications, reinstate risperidone as primary antipsychotic Tx, remove request for mood stabilizers, remove ativan. DC prolixin, begin taper of VPA, restart risperidone 2 BID, add thorazine 100 and valium 10 at HS to encourage sleep. awaiting med order. 01/28: last evening was pushing, attempting to kick and bite staff, shoulder- checked peer, exposing genitalia to 1:1 staff. took meds last night and this morning. court order received today, reviewed, medications adjusted to comply with order. reportedly more linear today, but pt declined to meet with MD after brief psychotic interaction with MD. 01/29: dysregulated, agitated behaviors continue last night. calmer days. refused VPA this morning. continue VPA taper, decrease from 500 BID to 250 TID as of today. increase HS seroquel from 300 mg to 400 mg as of tonight and HS valium from 10 mg to 15 mg as of tonight for sleep and sylwia. 01/30: same pattern of calm days through mid-afternoon, then decompensation. add third scheduled dosing of risperidone in the middle of the day, schedule valium in the morning and at 3 pm, otherwise continue current mgmt. increase HS seroquel if pt does not sleep more than several hours tonight. continue VPA taper tomorrow. 01/31: calm, morning. severe akathisia eves, unable to sleep or remain still. slept only 2.5 hours. due to 4 mg risperidone daily being inadequate to treat Sx and 6 mg causing severe akathisia, will DC risperidone in favor of a less potent antipsychotic, seroquel. schedule seroquel 100/100/500. taper VPA to 250 BID as of tomorrow. propranolol 20 TID started last night for akathisia, will continue for now. 02/01: no change - monitor akathisia decrease on new regimen 02/02: nicotine patch taper to 7 mg; seems to be doing better with switch to Seroquel and augmentation with Propranolol; primary team may f/u with further discussion of behavioral plan 02/03: much improved from last week. calm, linear, logical, topical. slept 6 hours each the last 3 nights. c/o sedation. decrease daytime valium from 5 BID to 2 BID. decrease daytime seroquel from 100 BID to 75 BID. taper VPA from 250 BID to 250 QHS. 02/04: remains much improved. no overt MSE abnormalities. c/o sedation, decrease seroquel from 75 BID to 50 BID and from 500 QHS to 400 QHS. DC VPA entirely. otherwise continue current mgmt. 02/05: backsliding today. irritable, erratic, more disorganized, labile. stating her intent to stop taking medications, demanding discharge. continue current mgmt. 02/06: much improved today. calm, logical, cogent and topical. pt would like to taper off of valium (addicting) and onto a proper mood stabilizer. legal records clerk notified. DC daytime valium. restart prazosin due to c/o nightmares. decrease propranolol from 20 TID to 10 TID (should no longer be necessary as off of medications likely to cause akathisia). DC daytime seroquel tomorrow. 02/07: similar conversation to yesterday. DC daytime seroquel. awaiting word from legal re adding lithium. otherwise continue current mgmt. 02/08: keeping to self. irritable edge. pt reports feeling overwhelmed d/t room change. medication compliant. focused on returning home. denies SI/HI/VH/AH. per nursing, slept 6 hours last night. continue current tx plan. 02/09: irritable edge. medication compliant. focused on returning home. intrusive during a peer's treatment; declined to walk away when asked by staff multiple times; poor insight and judgment. pt became upset after meeting with her mother; pt stated, my mom says its my behavior why I'm still here. I think they are keeping me here because I locked myself in that room . Valium decreased to 10mg PO bedtime. 02/10: irritable. medication compliant. Perseverative on discharge. Patient reports sleeping well last night. Appears calmer today. She reports visit with her mother when well. Denies SI/HI/VH/AH. Attending groups. Continue current treatment plan. 02/11/25: Irritable, irrational regarding why she is still being here. Poor insight and poor judgment. Not thinks she has bipolar. She only believes she has has ADHD and autism, therefore she does not need to be here and that no reason to keep her here longer. As a future, she does not think she going to continue taking medication after discharge per nursing. Racing thoughts. At times she is calm, able to attend groups, and some what appropriate. Have good visit with brother and mom yesterday. Not able to discuss for medication change due to agitated/irritable mood. 02/12/25: Been sleeping well, no issue with appetite, attended groups, have visit with mom. Both mom and patient the nurse believe that patient is not manic or having any bipolar features. They only believe that she has ADHD and autism. Mom advocate for patient to be discharged. Mom claims that the treatment team has not ever reach out to her. Both of the agree to have a family meeting in the future. We will leave message to the team to set it up. Patient has some mood swing, but overall, continued to improve with help of the medication. She wants to be off from Valium, but do not want any other medication change. Both Seroquel and Valium is on [facility] order. No other safety concerns. 02/13/25: Slept well, compliant with medications, refused nicotine patch on. Observed visible and attending groups, irritable at times, hyper focused on discharge as her normal baseline of everyday. Do not want any medication change. Reports gaining 28 lb since she got here. Nutrition consult placed. We will add Adderall on allergy list which make her psychotic. Patient to nursing put it in her allergy list. Some labile mood, pressured speech. 02/14: continue current tx plan. 02/15/25: Slept well, manage meal intake, portion size, healthier snacks to control her weight gain. Met with the dietitian today. She also ask staff to pronounce the list of healthy/happy food. Family brought in some healthy snack for her. She was mad being wakened up to get vital signs in the morning by nursing staff. Denies suicidal thoughts, denies hallucinations. She asked questions regarding diagnosis. Educate her regarding psychosis that she came with. Explained with her regarding medication she has been taking here, she will be discharged with, and then work with the outpatient psychiatrist to continue with [facility] orders, making any change if necessary. She is more receptive with the plan, more rationale when she is not in the bad mood. She appreciates the time I spent talking to her today. She attended groups, visible. No ADLs issues. Can be irritable at times. Refused her propranolol in the morning. She took multivitamins later on of the day after she refused. Change nicotine patch to p.r.n.. 02/16/25: Reported that she was angry, other than that she feels mood more stable today. Nursing staff contacted this provider reported that patient in the past was allowed using the head phone at night to cancel out the noise. Patient asked if she was allowed to use it again. Patient focused on healthy food, eating yogurt only in the morning. Family brought in more seeds instead of eating unhealthy food from hospital. She also was irritable as someone touching her clothes in the washer. She has a couple visits today. She feels ready to leave and stable enough to go home to community. She is looking forward to talk to her attending this week regarding discharge. Denies other safety concerns. She has been irritable at times, but able to control her anger. She said this is her baseline, and being in here is make her more irritable. Had phones use overnight order was discontinued per policy. 02/17: calm, logical, cooperative. appearing overly controlled, unnatural in doing so. medications plan at our last meeting resurrected - start lithium, taper seroquel and valium. pt states she is open to mood stabilizers. MD informs pt he believes she lacks capacity presently and will notify deputy prosecuting attorney to communicate with pt's deputy prosecuting attorney. hospital deputy prosecuting attorney notified. continue current mgmt for now. 02/18: corresponding with deputy prosecuting attorney re stipulated agreement. pt intrusive with peers and resistant to redirection by staff. with MD pt is calm and cooperative, but attempting to engage in argument justifying her intrusive behavior. continue current mgmt. slept well. 02/19/25: showered in the morning, reasonable, , slept for 6 hours I was up for snack , compliant with meds except Propranonol at 1500 yesterday. She asked if she can use electric razor to trim the pubic hair which was not allowed per safety and unit policy. Continue working healthy diet and snack. 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 No major behavior issues. Sometimes ask for stuff she knows they are not allowed. Continue with the plan. 02/20: refused seroquel last night, did not receive IM back-up. appears with bizarre smile today, believes she doesn't need medications and is ready to discharge. 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 plan for lithium in lieu of valium and seroquel, ideally, reviewed. pt appears to have very poor retention, as this plan has been discussed numerous times. pt was encouraged to discuss with her deputy prosecuting attorney and was given her deputy prosecuting attorney's contact information ([facility] number). 02/21: talking about not taking meds once discharged. refusing meds then taking them last second prior to IM administration. labile, irritable. very disorganized today, severely impaired cognitive performance. restart valium 5 and seroquel 75 BID at 0900, 1500. otherwise continue current mgmt. awaiting word from supervisor green end department re stipulated agreement for mood stabilizers. 02/22: Continue current regimen and plans. Orajel ordered. 02/23: Continue current plans and regimen 02/24: more organized and less oppositional, labile, intrusive, impulsive than monday. willing to take lithium. per deputy prosecuting attorney, we may have a stipulated agreement. continue current mgmt for now, hoping to start lithium GIRISH. 02/25/25: Amend the treatment plan to include mood stabilizer [place] Carbonate as primary treatment at therapeutic blood levels. Organized at times but when she is more anxious, less rationale. She does not accept new add on [place] on Wei's order that is effective today it is fake, you can keep it. I need to talk to my real estate lawyer . why I need [place]?I do not have bipolar . She believes she has autism and ADHD only. She asked inappropriate question such as if this provider knowing what JERSON and if this provider used it before. Patient asked to get her OP therapist to involve in decision making on meds. Prior to this conversation, she was calm, showing pictures of herself and family members that she has personal space for them on the wall. Some labile mood, underline irritable but no angry outburst. At some point, she states that Seroquel added on during daytime is helping with her mood and that I was not mad when she was waken up this morning. Denies SI/SIB/HI/AVH [place] ER 600mg daily at HS for mood. With some labs ordered for basleine CMP, TSH, Free T4. 02/26/25 Slept for 8 hours, compliant with medications except lithium. Rumination, poor insight and judgment, asking inappropriate questions, thought processes not on treatment, racing, anxious, appears to be paranoid. The RN showed the new amended Wei order, she does not believe it is true and wanted fire her deputy prosecuting attorney. HRO notified, met with patient. Continued to she is not bipolar, believes she has PTSD symptoms that causing her mood changes. Want this to talk to her outpatient therapist. We will arrange to make phone call for collateral. Change [place] ER from 600mg at HS to BID with IM of 5mg Valium IM back up if refuse. 02/27/25: Slept for 8 hours, compliant with medications, except for lithium- received Valium IM backup. Continued to resist to mood stabilizer, poor judgment, poor insight, do not believe she has bipolar. Nursing staff reports she was rude, inappropriate with staff, asking inappropriate questions. Racing thoughts. Request information regarding lithium. Nursing staff pronounced the handout, she has not in hand. Side effects noted. We will contact Josy BLACKBURN therapist at [phone] per patient request as she believes that her therapist should be involved in the decision making regarding diagnosis. 02/28/25: Continued to improve in sleep. Medication compliant, except for lithium yesterday morning. She took the evening dose per nursing report. Nurse's also provide patient with information related to lithium. Patient request the current Muniz order. Given a copy. She finally wants to keep it as she has been referred to review. She requests take her off from Seroquel if this provider wants her to text lithium which is unreasonable as she requests to take her off of them. Not able to rationale with her about the medication plan. Slightly having some open and accepting lithium. At home she will compliant do well with the lithium. In the future when she got into therapeutic level targeting labile mood, we can taper down on Seroquel or taper down on Valium. At this current time, due to current mental status, she can not process the information, not register in her mind for medication plans at this time. She does not trust the provider, she does not believe she has bipolar which is hard to convince her to take lithium. Labile mood, irritable and can be rude. Monitor over weakens for [place] and other medication compliant. IM back up available per Flavio' order. Attempted to call Josy [facility] therapist at [phone]. Left voices message with front end specialist. Waiting for a call back. 03/01: calm, cooperative, logical. still processing difficulties, but improved from last time we met. taking lithium for 2 days now, slept 8 hours overnight. decrease seroquel 75/75/400 to 50/50/300 and valium 5 BID to 4 BID. otherwise continue current mgmt. 03/02: declined interview for phone call. per staff, taking meds, accusing staff of trying to change her personality. 03/03/25: Patient slept for 7 hours, compliant with medication p.o Included lithium. Some labile mood, irritable, making accusation regarding what provider told her during assessment. She reported that she has has been calling outpatient therapist repeatedly but has not received a call back. Patient was informed that this provider also called, waiting for a call back as well. She asked why can not she take medication like this with the outpatient provider. Explained to her that she needs to be more stable before we discharge her, as now per her perception, she may feel that she is ready to go home, but other people in the treatment team do not think she is ready yet. Per nursing patient was better over the weekends, less provocative. Think we are changing her personality. We will check the lithium level on Monday morning. Been taking consistently the past 3 and half days. 03/04/25: Patient slept well, compliant with medication. Continue calling outpatient therapist herself. She has not hearing back from them. She reported that she wants to go home, therefore she will do whatever she needs to do to get home. 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 Explained to her that we will get the level tomorrow, level coming back subtherapeutic, we will increase dose of the lithium. In the meantime, we will consider to lower Seroquel down, mood is more stable. She is less labile today, attended to some groups. No safety concern. Constricted affect. Less irritable. [place] level for tomorrow morning. 03/05/25: Patient slept for 8 hours, was medication compliant. No IM backup need to be used. She has questions related to what she have to do and what is next step to get discharge. Explained the plan that we are waiting for the lithium level. If it is sub therapeutic, we will titrate until we get the therapeutic level. When she is more stable, we will plan to discharge her to outpatient provider in which she can continue taking medications. She appeared to be less labile, reasonable, more logical, able to take in information. No angry outbursts, attend his groups except when she has visiors. Continue working on healthy snack and diet. [place] level is 0.29; subtherapeutic. Increase [place] up to 900mg daily in divided dose. Recheck in 5 days 03/06/25: Patient slept for 7 hours, was medication compliant. Denies side effects. She is aware of the lithium change yesterday, and asked what the plan from now on. She agrees with the plan of lithium level in the next 5 days, and can be having some other medication adjusted. However she said she wants to leave everything the same like it is now when I was talking to her regarding benzo taper down. We will leave the same dose of benzo and Seroquel. We will revisit to see if the patient have thoughts of wanting to taper down on benzo as she is more stable. I will leave it there the way it is now so that she can have some control over her treatment. Reports to nursing that she feel a bit anxious and depressed. No argumentative, much less labile, more red rational and logical. Pacing the [place] to get steps in. Intermittently attended groups, no behavior issues. Most likely to be discharged late next week. 03/07/25: Continued to improve in mood, sleep and energy, compliant with medications, no side effects. She is more logical, more focused on treatment, continue working on healthy diet, walking the [place] to get some exercise done, no labile mood. She agree with the medication change but asked them do much of change to make her not stable and not able to go home. No argumentative, very reasonable. Denies anxiety and depression, denies safety concerns Reduce Valium 10 mg at bedtime down to 5 mg. [place] level, TSH, CMP on 03/10/25. 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 [place] level 03/10/202503/09: eager to clarify she would like to maintain current therapist and that agency and have a change of prescriber within the same agency (attributes med changes pre admission as reason for decompensation etc..) and ok seeing different prescriber remotely if needed as long as they can maintain their current therapist Reason for continued inpatient stay Substantial Risk for: rapid decompensation Time Spent With Patient Time: Total time managing care of this patient today ____ minutes.
[2025-03-09 14:29] VITALS: BP 107/57; PULSE 90
[2025-03-09 19:40] VITALS: BP 105/64; PULSE 94; TEMP 36.7; O2SAT 97
[2025-03-09 21:27] VITALS: BP 129/56; PULSE 97
[2025-03-10 07:42] VITALS: BP 110/53; PULSE 83; RESP 15; TEMP 36.4; O2SAT 98
[2025-03-10 08:42] LABS: Lithium 0.61 mmol/L (0.60-1.20)
[2025-03-10] MEDS: Calcium + Vitamin D 250 MG TABLET PO ×2 (08:42→16:54)
[2025-03-10 08:58] LABS: Alanine Aminotransferase 36 U/L (0-31); Albumin Level 4.4 g/dL (3.5-5.0); Alkaline Phosphatase 59 U/L (39-117); Anion Gap 13 (12-20); Aspartate Amino Transferase 35 U/L (5-31); Blood Urea Nitrogen 16 mg/dL (9-16); Calcium 9.2 mg/dL (8.4-10.2); Carbon Dioxide 27 mmol/L (22-29); Chloride 104 mmol/L (96-108); Creatinine Clr Calc Pharmacy 114.2; Estimated Glomerular Filt Rate > 60; Potassium 3.9 mmol/L (3.3-5.1); Sodium 140 mmol/L (135-145); Total Protein 7.1 g/dL (6.5-8.0)
[2025-03-10 09:14] LABS: Thyroid Stimulating Hormone 3.89 uIU/mL (0.32-4.0)
--- NOTE | 2025-03-10 12:02 | P.PNPSI_ITS ---
Subjective Subjective Date of Service: 03/10/25 Reason For Visit: Crisis Subjective Notes: Muniz Order and Section 8 Healthcare Proxy: No Guardianship: No Medical Problems Affecting Mental Status: No Interim History: Medical record and nursing notes reviewed; case discussed during rounds with team/nursing staff, and met with patient for supportive therapy/psychoeducation, as well as medication management. Patient slept for 8 hours, was medication compliant, no side effects, having visit with family members, attended groups. Continue with current plan, Continue to slowly tirtrate down on BZD. Patient agreed with the plan. Want Doctor note prior to discharge so she can be back to work.She will work on changing sleep pattern to appropriate to the job which is worrying me. Hope this is not affect her current mental health as she is pretty stable. SW continues working on aftercare appointments. She usually work at 5PM to 3 AM five days a week but will slowly back to work. Medication Compliance: Yes Side effects from medications: No Attending Groups: Yes Review of Systems Acute medical concerns: No Medical Review of Systems: unchanged Review of Systems Review of Systems Constitutional: Denies fatigue and Denies fever(s) Cardiovascular: Denies chest pain and Denies dyspnea Respiratory: Denies dyspnea Gastrointestinal: Denies abdominal pain Psychiatric: denies suicidal ideation Endocrine: Denies fatigue Yes all other systems are reviewed and are negative Mental Status Exam Mental Status Exam Narrative: Appearance: adequately dressed and groomed Behavior: no PMA/PMR. Speech: nml amount, nml loudness. nml latency. TP: organized, linear. logical TC: Took medication PO, focus on treatment Mood: good Affect: calm, constricted AH/VH: none expressed Insight/judgment: good Memory/cog: alert, improving . Diagnostics Vital Signs (24Hr): Vital Signs - 24 hr 03/09/25 14:29 03/09/25 19:40 03/09/25 21:27 Temperature 98.1 F Pulse Rate 90 94 97 Respiratory Rate Blood Pressure 107/57 L 105/64 129/56 L Pulse Oximetry 97 Oxygen Delivery Method Room Air 03/10/25 07:42 Temperature 97.5 F Pulse Rate 83 Respiratory Rate 15 Blood Pressure 110/53 L Pulse Oximetry 98 Oxygen Delivery Method Room Air BMI result Body Mass Index 25.9 Labs 01/09/25 16:36 03/10/25 08:13 Labs: Laboratory Results - last 48 hr 03/10/25 08:13 Hold Purple Top SEE NOTE Sodium 140 Potassium 3.9 Chloride 104 Carbon Dioxide 27 Anion Gap 13 BUN 16 Creatinine 0.69 Estim Creat Clear Calc 114.2 Estimated GFR > 60 Random Glucose 89 Calcium 9.2 Total Bilirubin 0.4 AST 35 H ALT 36 H Alkaline Phosphatase 59 Total Protein 7.1 Albumin 4.4 TSH 3.89 [place] 0.61 Imaging Radiology Impressions: ITS Impressions Hand X-Ray 01/16/25 11:30 IMPRESSION: Unremarkable right hand Electronically signed by: Caas Rush MD 01/16/2025 11:46 AM EDT RP Hand X-Ray 01/29/25 07:30 IMPRESSION: Unremarkable examination of the right hand. Electronically signed by: Obdulio Tolbert MD 01/30/2025 07:56 AM EDT RP Medications Medications Current Medications Acetaminophen (Acetaminophen 325 Mg Tablet) 650 mg PO Q6H PRN PRN Reason: Headache/Pain, Scale 1-10 Last Admin: 03/06/25 08:55 Dose: 650 mg Al Hydroxide/Mg Hydroxide (Magnesium Hydrox/Alum Hydrox 30 Ml Oral.Susp) 30 ml PO Q6H PRN PRN Reason: Heartburn/Nausea Last Admin: 01/30/25 14:06 Dose: 30 ml Artificial Tears (Artificial Tears 15 Ml Drops) 2 drop EYE-BOTH Q4H PRN PRN Reason: Dry Eyes Last Admin: 02/06/25 09:24 Dose: 2 drop Benzocaine (Benzocaine 20 % Oral Gel 14 Gm Tube) 1 appl MUCOUS MEM QID PRN; Protocol PRN Reason: Pain, Mild 1-3,fever,headache Last Admin: 03/06/25 22:10 Dose: 1 appl Calcium Carbonate/Cholecalciferol (Calcium + Vitamin D 250 Mg Tablet) 250 mg PO BIDWM VERONICA Last Admin: 03/10/25 08:42 Dose: 250 mg Diazepam (Diazepam 5 Mg Tablet) 5 mg PO Q4H PRN PRN Reason: agitation Last Admin: 02/18/25 08:48 Dose: 5 mg Diazepam (Diazepam 10 Mg/2 Ml Cartridge) 5 mg IM TID PRN PRN Reason: refuse [place] and Valium Last Admin: 02/27/25 09:00 Dose: 5 mg Diazepam (Diazepam 5 Mg Tablet) 5 mg PO BEDTIME VERONICA Last Admin: 03/09/25 21:25 Dose: 5 mg Diazepam (Diazepam 2 Mg Tablet) 4 mg PO DAILY VERONICA Docusate Sodium (Docusate Sodium 100 Mg Capsule) 100 mg PO BID PRN PRN Reason: Constipation Last Admin: 01/30/25 20:10 Dose: 100 mg Haloperidol Lactate (Haloperidol Lactate 5 Mg/Ml Vial) 5 mg IM TID PRN PRN Reason: refusal of scheduled seroquel Last Admin: 02/04/25 20:14 Dose: 5 mg Hydrocortisone (Hydrocortisone 2.5 % Rectal Cr 30 Gm Tube) [address] DAILY PRN PRN Reason: hemrroids Last Admin: 01/26/25 14:57 Dose: 1 appl Lidocaine (Lidocaine 4 % Patch Adh..Patch) 1 patch TRANSDERMA DAILY PRN; Protocol PRN Reason: left calf pain [place] Carbonate ([place] Carbonate Er 300 Mg Tablet.Er) 300 mg PO BID [facility] Last Admin: 03/10/25 08:40 Dose: 300 mg [place] Carbonate ([place] Carbonate Er 300 Mg Tablet.Er) 300 mg PO BEDTIME VERONICA Last Admin: 03/09/25 21:26 Dose: 300 mg Magnesium Hydroxide (Milk Of Magnesia 30 Ml Oral.Susp) 30 ml PO DAILY PRN PRN Reason: Constipation Last Admin: 01/26/25 14:59 Dose: 30 ml Multivitamins/Vitamin C (Multivitamin Tablet) 1 tab PO DAILY VERONICA Last Admin: 03/10/25 08:41 Dose: 1 tab Nicotine (Nicotine 7 Mg Patch.Td24) 7 mg TRANSDERMA DAILY PRN PRN Reason: Nicotine craving Nicotine Polacrilex (Nicotine Polacrilex 2 Mg Gum) 4 mg BUCCAL Q2H PRN PRN Reason: Nicotine Cravings Last Admin: 02/21/25 17:26 Dose: 4 mg Polyethylene Glycol (Polyethylene Glycol 3350 17 Gm Powd.Pack) 17 gm PO DAILY PRN PRN Reason: constipation Prazosin HCl (Prazosin Hcl 1 Mg Capsule) 1 mg PO BEDTIME VERONICA; Protocol Last Admin: 03/09/25 21:27 Dose: 1 mg Propranolol HCl (Propranolol Hcl 10 Mg Tablet) 10 mg PO TID [facility]; Protocol Last Admin: 03/10/25 08:41 Dose: 10 mg Quetiapine Fumarate (Quetiapine Fumarate 50 Mg Tablet) 50 mg PO BID@0900,1500 [facility] Last Admin: 03/10/25 08:41 Dose: 50 mg Quetiapine Fumarate (Quetiapine Fumarate 300 Mg Tablet) 300 mg PO BEDTIME [facility] Last Admin: 03/09/25 21:26 Dose: 300 mg Allergies Allergies Allergy/AdvReac Type Severity Reaction Status Date / Time amphetamine (From Adderall) Allergy Severe psychosis/ Verified 02/13/25 22:40 Manic dextroamphetamine (From Allergy Severe psychosis/ Verified 02/13/25 22:40 Adderall) Manic olanzapine (From Zyprexa) AdvReac Rash Verified 12/31/24 18:41 Assessment & Plan Assessment & Plan (1) Psychosis: Status: Acute Code(s): F29 - Unspecified psychosis not due to a substance or known physiological condition Plan Ms. Sheridan is a 34 year-old woman who presents with s/s of psychosis, disorganized, some degree of paranoia. She had similar episode back in 2020. 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 I do suspect that there may be underlying psychiatric disorder that is triggered by amphetamine use but not necessarily caused by it. Further evaluation to clarify dx is needed. We discussed inpt level of care. We also discussed restarting risperidone 1mg po BID. low dose clonazepam. continue clonidine. 1. IPLOC 2. start risperidone 1mg po BID. Clonazepam 0.5mg po BID. 01/05: Continue current regimen and plans. 01/06: slept only 2 hours, disorganized, decompensated behaviors. unable to interact cogently. refusing risperidone, will offer seroquel instead. possible bipolar diathesis, T/C mood stabilizer. delirium also a possibility, as the mental status change since admission appears to be striking. 01/07: took seroquel 200 last night, slept 5.5 hours. more organized, linear, able to engage today. continue current mgmt. 01/08: refused seroquel last NOC, slept only 30 minutes. agitated, bizarre, disorganized today. commitment paperwork filed. 01/09: refused meds yesterday but got IMs due to behaviors (outbursts, touching peers, yelling, banging doors, pushed her sitter, climbing on tables and chairs. threatening to stab self with pens). more linear and engageable today, once again the day after having takenm medication. agrees to continue to take seroquel 200 mg QHS. 01/10: took seroquel last NOC and slept 4 hours overnight, but bizarre today. less agitation and intrusiveness than yesterday, but still bizarre and fairly intrusive. pt appears willing to take risperidone, will DC seroquel and return to dosing of risperidone 2 mg BID. took first dose this afternoon. court next monday. 01/11 very paranoid, fearful, taking medications 01/12 continue tx. 01/13: appears a bit more organized today than when not taking medications, although slow and processing poorly. declines to sign CV. commitment hearing tomorrow. 01/14: hearing continued until 01/24 for SINDY. add klonopin 0.5 BID ODT, change risperidone formulation to liquid (pt has been inducing vomiting repeatedly with toothbrush). hold toothbrush unless actively brushing teeth. continues interactive to some extent with MD today, but has been grabbing badges, touching others, and tried to vault into the nursing station in the past 24H. 01/15: IM medication after threatening to punch staff development educator with intrusive and aggressive behaviors toward peers. pt did not take klonopin as ordered yesterday. DC klonopin and start VPA 500 BID. per staff, running. tried to make herself vomit after taking PRN. labile. ate her feces in the shower and tried to feed it to her 1:1. crawling under tables. tried to jump into nurses station x2. took her shirt off and swinging it around. did not sleep at all. slept at 7:30am. 01/16: refusing VPA, taking risperidone. napped after IMs yesterday. has been bizarre and labile since. slept only 2 hours overnight. continue current mgmt. 01/17: agitated, bizarre, and aggressive behaviors yesterday (punching and kicking beard, stripping off in milieu, attempting to intimidate staff, grabbing stress balls out of staff's hands). did take VPA this morning on its being offered a second time. more calm today. taking risperidone. 01/18: intermittently refusing VPA, seems to be taking risperidone. asks MD if he is alive, then proposes elbow bump. accusing staff of stealing her things (phone), calling mother and virtualization architect in the middle of the night. slept less than 4 hours. 01/19: more lucid today. concerned about risperidone weight gain. agrees to DC risperidone and try prolixin instead, starting at 2.5 BID. 01/20: very disorganized, bizarre, psychotic today. likely due to equivalent dosing of prolixin being given much lower than prior risperidone. as pt seems to be tolerating prolixin without issues, increase prolixin dosing from 2.5 BID to 5 BID. otherwise continue current mgmt. 01/21: less bizarre and disorganized, but still quite ill. variably compliant with medications. c/o leg pain, lowering self to floor; started cogentin 0.5 BID due to concern for dystonia. c/o nightmares, h/o prazosin with good effect. add prazosin 1 mg QHS as of vic. 01/22: Patients states that she is good. She is scared of [place] herpes after having sex. She refused to participate in an interview with this provider, and walked away stating i don't need a provider. She was observed by this provider, pacing the [place]. Continue current treatment regimen. 01/23: disorganized and dangerous behaviors. voluntarily took IMs. court tomorrow. 01/24: remains disorganized. ran into staff member yesterday, postured and threatened other staff afterward. slept about 6.[address] this afternoon. 01/25/25: Staff 5 6 hours with broken sleep. Compliant with medication with lots of encouragement from yesterday, refused her vitamins in the morning. CT scan was negative, she fell early in the morning, witness her head hit the wall the trying to put her pants on. Slightly improved in mood with medication compliant. VPA level is 52,1 low side. However patient not consistently take it every day. We will recheck. He is on section 8. Pending Wei's order. Less irritable, less racing. 01/26/25: Mostly compliant with medication, to 250/750 mg of Depakote scheduled at bedtime. Labile, restless, poor boundaries, sexually inappropriate behavior, mood is aggravated . Disorganized. Slightly improving but not much. She is better in terms of compliant with medications. 01/27: mostly compliant with meds. improved from last week, more organized and less labile today. agreement reached on medications, reinstate risperidone as primary antipsychotic Tx, remove request for mood stabilizers, remove ativan. DC prolixin, begin taper of VPA, restart risperidone 2 BID, add thorazine 100 and valium 10 at HS to encourage sleep. awaiting med order. 01/28: last evening was pushing, attempting to kick and bite staff, shoulder- checked peer, exposing genitalia to 1:1 staff. took meds last night and this morning. court order received today, reviewed, medications adjusted to comply with order. reportedly more linear today, but pt declined to meet with MD after brief psychotic interaction with MD. 01/29: dysregulated, agitated behaviors continue last night. calmer days. refused VPA this morning. continue VPA taper, decrease from 500 BID to 250 TID as of today. increase HS seroquel from 300 mg to 400 mg as of tonight and HS valium from 10 mg to 15 mg as of tonight for sleep and sylwia. 01/30: same pattern of calm days through mid-afternoon, then decompensation. add third scheduled dosing of risperidone in the middle of the day, schedule valium in the morning and at 3 pm, otherwise continue current mgmt. increase HS seroquel if pt does not sleep more than several hours tonight. continue VPA taper tomorrow. 01/31: calm, morning. severe akathisia eves, unable to sleep or remain still. slept only 2.5 hours. due to 4 mg risperidone daily being inadequate to treat Sx and 6 mg causing severe akathisia, will DC risperidone in favor of a less potent antipsychotic, seroquel. schedule seroquel 100/100/500. taper VPA to 250 BID as of tomorrow. propranolol 20 TID started last night for akathisia, will continue for now. 02/01: no change - monitor akathisia decrease on new regimen 02/02: nicotine patch taper to 7 mg; seems to be doing better with switch to Seroquel and augmentation with Propranolol; primary team may f/u with further discussion of behavioral plan 02/03: much improved from last week. calm, linear, logical, topical. slept 6 hours each the last 3 nights. c/o sedation. decrease daytime valium from 5 BID to 2 BID. decrease daytime seroquel from 100 BID to 75 BID. taper VPA from 250 BID to 250 QHS. 02/04: remains much improved. no overt MSE abnormalities. c/o sedation, decrease seroquel from 75 BID to 50 BID and from 500 QHS to 400 QHS. DC VPA entirely. otherwise continue current mgmt. 02/05: backsliding today. irritable, erratic, more disorganized, labile. stating her intent to stop taking medications, demanding discharge. continue current mgmt. 02/06: much improved today. calm, logical, cogent and topical. pt would like to taper off of valium (addicting) and onto a proper mood stabilizer. legal billing analyst notified. DC daytime valium. restart prazosin due to c/o nightmares. decrease propranolol from 20 TID to 10 TID (should no longer be necessary as off of medications likely to cause akathisia). DC daytime seroquel tomorrow. 02/07: similar conversation to yesterday. DC daytime seroquel. awaiting word from legal re adding lithium. otherwise continue current mgmt. 02/08: keeping to self. irritable edge. pt reports feeling overwhelmed d/t room change. medication compliant. focused on returning home. denies SI/HI/VH/AH. per nursing, slept 6 hours last night. continue current tx plan. 02/09: irritable edge. medication compliant. focused on returning home. intrusive during a peer's treatment; declined to walk away when asked by staff multiple times; poor insight and judgment. pt became upset after meeting with her mother; pt stated, my mom says its my behavior why I'm still here. I think they are keeping me here because I locked myself in that room . Valium decreased to 10mg PO bedtime. 02/10: irritable. medication compliant. Perseverative on discharge. Patient reports sleeping well last night. Appears calmer today. She reports visit with her mother when well. Denies SI/HI/VH/AH. Attending groups. Continue current treatment plan. 02/11/25: Irritable, irrational regarding why she is still being here. Poor insight and poor judgment. Not thinks she has bipolar. She only believes she has has ADHD and autism, therefore she does not need to be here and that no reason to keep her here longer. As a future, she does not think she going to continue taking medication after discharge per nursing. Racing thoughts. At times she is calm, able to attend groups, and some what appropriate. Have good visit with brother and mom yesterday. Not able to discuss for medication change due to agitated/irritable mood. 02/12/25: Been sleeping well, no issue with appetite, attended groups, have visit with mom. Both mom and patient the nurse believe that patient is not manic or having any bipolar features. They only believe that she has ADHD and autism. Mom advocate for patient to be discharged. Mom claims that the treatment team has not ever reach out to her. Both of the agree to have a family meeting in the future. We will leave message to the team to set it up. Patient has some mood swing, but overall, continued to improve with help of the medication. She wants to be off from Valium, but do not want any other medication change. Both Seroquel and Valium is on Muniz order. No other safety concerns. 02/13/25: Slept well, compliant with medications, refused nicotine patch on. Observed visible and attending groups, irritable at times, hyper focused on discharge as her normal baseline of everyday. Do not want any medication change. Reports gaining 28 lb since she got here. Nutrition consult placed. We will add Adderall on allergy list which make her psychotic. Patient to nursing put it in her allergy list. Some labile mood, pressured speech. 02/14: continue current tx plan. 02/15/25: Slept well, manage meal intake, portion size, healthier snacks to control her weight gain. Met with the dietitian today. She also ask staff to pronounce the list of healthy/happy food. Family brought in some healthy snack for her. She was mad being wakened up to get vital signs in the morning by nursing staff. Denies suicidal thoughts, denies hallucinations. She asked questions regarding diagnosis. Educate her regarding psychosis that she came with. Explained with her regarding medication she has been taking here, she will be discharged with, and then work with the outpatient psychiatrist to continue with Muniz orders, making any change if necessary. She is more receptive with the plan, more rationale when she is not in the bad mood. She appreciates the time I spent talking to her today. She attended groups, visible. No ADLs issues. Can be irritable at times. Refused her propranolol in the morning. She took multivitamins later on of the day after she refused. Change nicotine patch to p.r.n.. 02/16/25: Reported that she was angry, other than that she feels mood more stable today. Nursing staff contacted this provider reported that patient in the past was allowed using the head phone at night to cancel out the noise. Patient asked if she was allowed to use it again. Patient focused on healthy food, eating yogurt only in the morning. Family brought in more seeds instead of eating unhealthy food from hospital. She also was irritable as someone touching her clothes in the washer. She has a couple visits today. She feels ready to leave and stable enough to go home to community. She is looking forward to talk to her attending this week regarding discharge. Denies other safety concerns. She has been irritable at times, but able to control her anger. She said this is her baseline, and being in here is make her more irritable. Had phones use overnight order was discontinued per policy. 02/17: calm, logical, cooperative. appearing overly controlled, unnatural in doing so. medications plan at our last meeting resurrected - start lithium, taper seroquel and valium. pt states she is open to mood stabilizers. MD informs pt he believes she lacks capacity presently and will notify assistant prosecuting attorney to communicate with pt's assistant prosecuting attorney. hospital assistant prosecuting attorney notified. continue current mgmt for now. 02/18: corresponding with assistant prosecuting attorney re stipulated agreement. pt intrusive with peers and resistant to redirection by staff. with pt is calm and cooperative, but attempting to engage in argument justifying her intrusive behavior. continue current mgmt. slept well. 02/19/25: showered in the morning, reasonable, , slept for 6 hours I was up for snack , compliant with meds except Propranonol at 1500 yesterday. She asked if she can use electric razor to trim the pubic hair which was not allowed per safety and unit policy. Continue working healthy diet and snack. 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 No major behavior issues. Sometimes ask for stuff she knows they are not allowed. Continue with the plan. 02/20: refused seroquel last night, did not receive IM back-up. appears with bizarre smile today, believes she doesn't need medications and is ready to discharge. 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 plan for lithium in lieu of valium and seroquel, ideally, reviewed. pt appears to have very poor retention, as this plan has been discussed numerous times. pt was encouraged to discuss with her assistant prosecuting attorney and was given her assistant prosecuting attorney's contact information ([facility] number). 02/21: talking about not taking meds once discharged. refusing meds then taking them last second prior to IM administration. labile, irritable. very disorganized today, severely impaired cognitive performance. restart valium 5 and seroquel 75 BID at 0900, 1500. otherwise continue current mgmt. awaiting word from reclamation supervisor re stipulated agreement for mood stabilizers. 02/22: Continue current regimen and plans. Orajel ordered. 02/23: Continue current plans and regimen 02/24: more organized and less oppositional, labile, intrusive, impulsive than monday. willing to take lithium. per assistant prosecuting attorney, we may have a stipulated agreement. continue current mgmt for now, hoping to start lithium GIRISH. 02/25/25: Amend the treatment plan to include mood stabilizer [place] Carbonate as primary treatment at therapeutic blood levels. Organized at times but when she is more anxious, less rationale. She does not accept new add on [place] on Wei's order that is effective today it is fake, you can keep it. I need to talk to my virtualization architect . why I need [place]?I do not have bipolar . She believes she has autism and ADHD only. She asked inappropriate question such as if this provider knowing what JERSON and if this provider used it before. Patient asked to get her OP therapist to involve in decision making on meds. Prior to this conversation, she was calm, showing pictures of herself and family members that she has personal space for them on the wall. Some labile mood, underline irritable but no angry outburst. At some point, she states that Seroquel added on during daytime is helping with her mood and that I was not mad when she was waken up this morning. Denies SI/SIB/HI/AVH [place] ER 600mg daily at HS for mood. With some labs ordered for basjovannane CMP, TSH, Free T4. 02/26/25 Slept for 8 hours, compliant with medications except lithium. Rumination, poor insight and judgment, asking inappropriate questions, thought processes not on treatment, racing, anxious, appears to be paranoid. The RN showed the new amended Wei order, she does not believe it is true and wanted fire her assistant prosecuting attorney. HRO notified, met with patient. Continued to she is not bipolar, believes she has PTSD symptoms that causing her mood changes. Want this to talk to her outpatient therapist. We will arrange to make phone call for collateral. Change [place] [facility] from 600mg at HS to BID with IM of 5mg Valium IM back up if refuse. 02/27/25: Slept for 8 hours, compliant with medications, except for lithium- received Valium IM backup. Continued to resist to mood stabilizer, poor judgment, poor insight, do not believe she has bipolar. Nursing staff reports she was rude, inappropriate with staff, asking inappropriate questions. Racing thoughts. Request information regarding lithium. Nursing staff pronounced the handout, she has not in hand. Side effects noted. We will contact Josy Franklin- [facility] therapist at [phone] per patient request as she believes that her therapist should be involved in the decision making regarding diagnosis. 02/28/25: Continued to improve in sleep. Medication compliant, except for lithium yesterday morning. She took the evening dose per nursing report. Nurse's also provide patient with information related to lithium. Patient request the current [facility] order. Given a copy. She finally wants to keep it as she has been referred to review. She requests take her off from Seroquel if this provider wants her to text lithium which is unreasonable as she requests to take her off of them. Not able to rationale with her about the medication plan. Slightly having some open and accepting lithium. At home she will compliant do well with the lithium. In the future when she got into therapeutic level targeting labile mood, we can taper down on Seroquel or taper down on Valium. At this current time, due to current mental status, she can not process the information, not register in her mind for medication plans at this time. She does not trust the provider, she does not believe she has bipolar which is hard to convince her to take lithium. Labile mood, irritable and can be rude. Monitor over weakens for [place] and other medication compliant. IM back up available per Flavio' order. Attempted to call Josy Franklin- [facility] therapist at [phone]. Left voices message with front office spec. Waiting for a call back. 03/01: calm, cooperative, logical. still processing difficulties, but improved from last time we met. taking lithium for 2 days now, slept 8 hours overnight. decrease seroquel 75/75/400 to 50/50/300 and valium 5 BID to 4 BID. otherwise continue current mgmt. 03/02: declined interview for phone call. per staff, taking meds, accusing staff of trying to change her personality. 03/03/25: Patient slept for 7 hours, compliant with medication p.o Included lithium. Some labile mood, irritable, making accusation regarding what provider told her during assessment. She reported that she has has been calling outpatient therapist repeatedly but has not received a call back. Patient was informed that this provider also called, waiting for a call back as well. She asked why can not she take medication like this with the outpatient provider. Explained to her that she needs to be more stable before we discharge her, as now per her perception, she may feel that she is ready to go home, but other people in the treatment team do not think she is ready yet. Per nursing patient was better over the weekends, less provocative. Think we are changing her personality. We will check the lithium level on Monday morning. Been taking consistently the past 3 and half days. 03/04/25: Patient slept well, compliant with medication. Continue calling outpatient therapist herself. She has not hearing back from them. She reported that she wants to go home, therefore she will do whatever she needs to do to get home. 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 Explained to her that we will get the level tomorrow, level coming back subtherapeutic, we will increase dose of the lithium. In the meantime, we will consider to lower Seroquel down, mood is more stable. She is less labile today, attended to some groups. No safety concern. Constricted affect. Less irritable. [place] level for tomorrow morning. 03/05/25: Patient slept for 8 hours, was medication compliant. No IM backup need to be used. She has questions related to what she have to do and what is next step to get discharge. Explained the plan that we are waiting for the lithium level. If it is sub therapeutic, we will titrate until we get the therapeutic level. When she is more stable, we will plan to discharge her to outpatient provider in which she can continue taking medications. She appeared to be less labile, reasonable, more logical, able to take in information. No angry outbursts, attend his groups except when she has visiors. Continue working on healthy snack and diet. [place] level is 0.29; subtherapeutic. Increase [place] up to 900mg daily in divided dose. Recheck in 5 days 03/06/25: Patient slept for 7 hours, was medication compliant. Denies side effects. She is aware of the lithium change yesterday, and asked what the plan from now on. She agrees with the plan of lithium level in the next 5 days, and can be having some other medication adjusted. However she said she wants to leave everything the same like it is now when I was talking to her regarding benzo taper down. We will leave the same dose of benzo and Seroquel. We will revisit to see if the patient have thoughts of wanting to taper down on benzo as she is more stable. I will leave it there the way it is now so that she can have some control over her treatment. Reports to nursing that she feel a bit anxious and depressed. No argumentative, much less labile, more red rational and logical. Pacing the [place] to get steps in. Intermittently attended groups, no behavior issues. Most likely to be discharged late next week. 03/07/25: Continued to improve in mood, sleep and energy, compliant with medications, no side effects. She is more logical, more focused on treatment, continue working on healthy diet, walking the [place] to get some exercise done, no labile mood. She agree with the medication change but asked them do much of change to make her not stable and not able to go home. No argumentative, very reasonable. Denies anxiety and depression, denies safety concerns Reduce Valium 10 mg at bedtime down to 5 mg. [place] level, TSH, CMP on 03/10/25. 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 [place] level 03/10/202503/09: eager to clarify she would like to maintain current therapist and that agency and have a change of prescriber within the same agency (attributes med changes pre admission as reason for decompensation etc..) and ok seeing different prescriber remotely if needed as long as they can maintain their current therapist 03/10/25: Continue with current plan, Continue to slowly tirtrate down on BZD. Patient agreed with the plan. Want Doctor note prior to discharge so she can be back to work.She will work on changing sleep pattern to appropriate to the job which is worrying me. Hope this is not affect her current mental health as she is pretty stable. SW continues working on aftercare appointments. She usually work at 5PM to 3 AM five days a week but will slowly back to work. Reduce Valium 4mg BID to 4 daily. Discontinue 1-1 monitor 30 min after meds. [place] level 0.61 therapeutic level. Patient educated on: diagnosis, medication risk/benefits and therapeutic strategies Informed Consent: understands Reason for continued inpatient stay Substantial Risk for: med/psych decompensation Time Spent With Patient Time: Total time managing care of this patient today ____ minutes.
[2025-03-10 14:56] VITALS: BP 110/59; PULSE 89
[2025-03-10 20:00] VITALS: BP 96/55; PULSE 88; RESP 16; TEMP 36.8; O2SAT 97
[2025-03-11 09:00] VITALS: BP 112/71; PULSE 92; RESP 14; TEMP 36.6; O2SAT 98
[2025-03-11 09:12] VITALS: BP 112/71; PULSE 92
[2025-03-11] MEDS: Calcium + Vitamin D 250 MG TABLET PO ×2 (09:12→16:19)
[2025-03-11] MEDS: Lidocaine 4 % Patch ADH..PATCH 1 PATCH TRANSDERMA (09:15)
[2025-03-11 16:19] VITALS: BP 121/67; PULSE 91
--- NOTE | 2025-03-11 18:16 | HO.PSYCHPN ---
Subjective Subjective Date of Service: 03/11/25 Reason For Visit: Crisis Subjective Notes: [facility]iz Order and Section 8 Healthcare Proxy: No Guardianship: No Medical Problems Affecting Mental Status: No Interim History: Medical record and nursing notes reviewed; case discussed during rounds with team/nursing staff, and met with patient for supportive therapy/psychoeducation, as well as medication management. Patient slept well, no issue with appetite, observed attended groups, social appropriate with peers and staff, was medication compliant, denies side effects. She did well on benzo taper denies safety concerns. Continued to improve in mood and sleep. Logical, thought processes on treatment. Verbally saying that she will continue taking medication upon discharge. She sending home with family's some belongings as to be pair being discharge this . Medication Compliance: Yes Side effects from medications: No Attending Groups: Yes Review of Systems Acute medical concerns: No Medical Review of Systems: unchanged Review of Systems Review of Systems Constitutional: Denies fatigue and Denies fever(s) Cardiovascular: Denies chest pain and Denies dyspnea Respiratory: Denies dyspnea Gastrointestinal: Denies abdominal pain Psychiatric: denies suicidal ideation Endocrine: Denies fatigue Yes all other systems are reviewed and are negative Mental Status Exam Mental Status Exam Narrative: Appearance: adequately dressed and groomed Behavior: no PMA/PMR. Speech: nml amount, nml loudness. nml latency. TP: organized, linear. logical TC: Took medication PO, focus on treatment Mood: good Affect: calm, constricted AH/VH: none expressed Insight/judgment: good Memory/cog: alert, improving . Diagnostics Vital Signs (24Hr): Vital Signs - 24 hr 03/10/25 20:00 03/11/25 09:00 03/11/25 09:12 Temperature 98.3 F 97.9 F Pulse Rate 88 92 92 Respiratory Rate 16 14 Blood Pressure 96/55 L 112/71 112/71 Pulse Oximetry 97 98 Oxygen Delivery Method Room Air Room Air 03/11/25 16:19 Temperature Pulse Rate 91 Respiratory Rate Blood Pressure 121/67 Pulse Oximetry Oxygen Delivery Method BMI result Body Mass Index 25.9 Labs 01/09/25 16:36 03/10/25 08:13 Labs: Laboratory Results - last 48 hr 03/10/25 08:13 Hold Purple Top SEE NOTE Sodium 140 Potassium 3.9 Chloride 104 Carbon Dioxide 27 Anion Gap 13 BUN 16 Creatinine 0.69 Estim Creat Clear Calc 114.2 Estimated GFR > 60 Random Glucose 89 Calcium 9.2 Total Bilirubin 0.4 AST 35 H ALT 36 H Alkaline Phosphatase 59 Total Protein 7.1 Albumin 4.4 TSH 3.89 [place] 0.61 Imaging Radiology Impressions: ITS Impressions Hand X-Ray 01/16/25 11:30 IMPRESSION: Unremarkable right hand Electronically signed by: Casa Rush MD 01/16/2025 11:46 AM EDT RP Hand X-Ray 01/29/25 07:30 IMPRESSION: Unremarkable examination of the right hand. Electronically signed by: Obdulio Tolbert MD 01/30/2025 07:56 AM EDT RP Medications Medications Current Medications Acetaminophen (Acetaminophen 325 Mg Tablet) 650 mg PO Q6H PRN PRN Reason: Headache/Pain, Scale 1-10 Last Admin: 03/06/25 08:55 Dose: 650 mg Al Hydroxide/Mg Hydroxide (Magnesium Hydrox/Alum Hydrox 30 Ml Oral.Susp) 30 ml PO Q6H PRN PRN Reason: Heartburn/Nausea Last Admin: 01/30/25 14:06 Dose: 30 ml Artificial Tears (Artificial Tears 15 Ml Drops) 2 drop EYE-BOTH Q4H PRN PRN Reason: Dry Eyes Last Admin: 02/06/25 09:24 Dose: 2 drop Benzocaine (Benzocaine 20 % Oral Gel 14 Gm Tube) 1 appl MUCOUS MEM QID PRN; Protocol PRN Reason: Pain, Mild 1-3,fever,headache Last Admin: 03/06/25 22:10 Dose: 1 appl Calcium Carbonate/Cholecalciferol (Calcium + Vitamin D 250 Mg Tablet) 250 mg PO BIDWM [facility] Last Admin: 03/11/25 16:19 Dose: 250 mg Diazepam (Diazepam 5 Mg Tablet) 5 mg PO Q4H PRN PRN Reason: agitation Last Admin: 02/18/25 08:48 Dose: 5 mg Diazepam (Diazepam 10 Mg/2 Ml Cartridge) 5 mg IM TID PRN PRN Reason: refuse [place] and Valium Last Admin: 02/27/25 09:00 Dose: 5 mg Diazepam (Diazepam 5 Mg Tablet) 5 mg PO BEDTIME [facility] Last Admin: 03/10/25 20:57 Dose: 5 mg Diazepam (Diazepam 2 Mg Tablet) 4 mg PO DAILY VERONICA Last Admin: 03/11/25 09:12 Dose: 4 mg Docusate Sodium (Docusate Sodium 100 Mg Capsule) 100 mg PO BID PRN PRN Reason: Constipation Last Admin: 01/30/25 20:10 Dose: 100 mg Haloperidol Lactate (Haloperidol Lactate 5 Mg/Ml Vial) 5 mg IM TID PRN PRN Reason: refusal of scheduled seroquel Last Admin: 02/04/25 20:14 Dose: 5 mg Hydrocortisone (Hydrocortisone 2.5 % Rectal Cr 30 Gm Tube) 1 appl DC DAILY PRN PRN Reason: hemrroids Last Admin: 01/26/25 14:57 Dose: 1 appl Lidocaine (Lidocaine 4 % Patch Adh..Patch) 1 patch TRANSDERMA DAILY PRN; Protocol PRN Reason: left calf pain Last Admin: 03/11/25 09:15 Dose: 1 patch [place] Carbonate ([place] Carbonate Er 300 Mg Tablet.Er) 300 mg PO BID VERONICA Last Admin: 03/11/25 09:11 Dose: 300 mg [place] Carbonate ([place] Carbonate Er 300 Mg Tablet.Er) 300 mg PO BEDTIME VERONICA Last Admin: 03/10/25 20:58 Dose: 300 mg Magnesium Hydroxide (Milk Of Magnesia 30 Ml Oral.Susp) 30 ml PO DAILY PRN PRN Reason: Constipation Last Admin: 01/26/25 14:59 Dose: 30 ml Multivitamins/Vitamin C (Multivitamin Tablet) 1 tab PO DAILY VERONICA Last Admin: 03/11/25 09:11 Dose: 1 tab Nicotine (Nicotine 7 Mg Patch.Td24) 7 mg TRANSDERMA DAILY PRN PRN Reason: Nicotine craving Nicotine Polacrilex (Nicotine Polacrilex 2 Mg Gum) 4 mg BUCCAL Q2H PRN PRN Reason: Nicotine Cravings Last Admin: 02/21/25 17:26 Dose: 4 mg Polyethylene Glycol (Polyethylene Glycol 3350 17 Gm Powd.Pack) 17 gm PO DAILY PRN PRN Reason: constipation Prazosin HCl (Prazosin Hcl 1 Mg Capsule) 1 mg PO BEDTIME [facility]; Protocol Last Admin: 03/10/25 20:57 Dose: 1 mg Propranolol HCl (Propranolol Hcl 10 Mg Tablet) 10 mg PO TID [facility]; Protocol Last Admin: 03/11/25 16:19 Dose: 10 mg Quetiapine Fumarate (Quetiapine Fumarate 50 Mg Tablet) 50 mg PO BID@0900,1500 [facility] Last Admin: 03/11/25 16:19 Dose: 50 mg Quetiapine Fumarate (Quetiapine Fumarate 300 Mg Tablet) 300 mg PO BEDTIME [facility] Last Admin: 03/10/25 20:57 Dose: 300 mg Allergies Allergies Allergy/AdvReac Type Severity Reaction Status Date / Time amphetamine (From Adderall) Allergy Severe psychosis/ Verified 02/13/25 22:40 Manic dextroamphetamine (From Allergy Severe psychosis/ Verified 02/13/25 22:40 Adderall) Manic olanzapine (From Zyprexa) AdvReac Rash Verified 12/31/24 18:41 Assessment & Plan Assessment & Plan (1) Psychosis: Status: Acute Code(s): F29 - Unspecified psychosis not due to a substance or known physiological condition Plan Ms. Sheridan is a 34 year-old woman who presents with s/s of psychosis, disorganized, some degree of paranoia. She had similar episode back in 2020. 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 I do suspect that there may be underlying psychiatric disorder that is triggered by amphetamine use but not necessarily caused by it. Further evaluation to clarify dx is needed. We discussed inpt level of care. We also discussed restarting risperidone 1mg po BID. low dose clonazepam. continue clonidine. 1. IPLOC 2. start risperidone 1mg po BID. Clonazepam 0.5mg po BID. 01/05: Continue current regimen and plans. 01/06: slept only 2 hours, disorganized, decompensated behaviors. unable to interact cogently. refusing risperidone, will offer seroquel instead. possible bipolar diathesis, T/C mood stabilizer. delirium also a possibility, as the mental status change since admission appears to be striking. 01/07: took seroquel 200 last night, slept 5.5 hours. more organized, linear, able to engage today. continue current mgmt. 01/08: refused seroquel last NOC, slept only 30 minutes. agitated, bizarre, disorganized today. commitment paperwork filed. 01/09: refused meds yesterday but got IMs due to behaviors (outbursts, touching peers, yelling, banging doors, pushed her sitter, climbing on tables and chairs. threatening to stab self with pens). more linear and engageable today, once again the day after having takenm medication. agrees to continue to take seroquel 200 mg QHS. 01/10: took seroquel last NOC and slept 4 hours overnight, but bizarre today. less agitation and intrusiveness than yesterday, but still bizarre and fairly intrusive. pt appears willing to take risperidone, will DC seroquel and return to dosing of risperidone 2 mg BID. took first dose this afternoon. court next monday. 01/11 very paranoid, fearful, taking medications 01/12 continue tx. 01/13: appears a bit more organized today than when not taking medications, although slow and processing poorly. declines to sign CV. commitment hearing tomorrow. 01/14: hearing continued until 01/24 for SINDY. add klonopin 0.5 BID ODT, change risperidone formulation to liquid (pt has been inducing vomiting repeatedly with toothbrush). hold toothbrush unless actively brushing teeth. continues interactive to some extent with MD today, but has been grabbing badges, touching others, and tried to vault into the nursing station in the past 24H. 01/15: IM medication after threatening to punch staffing associate with intrusive and aggressive behaviors toward peers. pt did not take klonopin as ordered yesterday. DC klonopin and start VPA 500 BID. per staff, running. tried to make herself vomit after taking PRN. labile. ate her feces in the shower and tried to feed it to her 1:1. crawling under tables. tried to jump into nurses station x2. took her shirt off and swinging it around. did not sleep at all. slept at 7:30am. 01/16: refusing VPA, taking risperidone. napped after IMs yesterday. has been bizarre and labile since. slept only 2 hours overnight. continue current mgmt. 01/17: agitated, bizarre, and aggressive behaviors yesterday (punching and kicking beard, stripping off in milieu, attempting to intimidate staff, grabbing stress balls out of staff's hands). did take VPA this morning on its being offered a second time. more calm today. taking risperidone. 01/18: intermittently refusing VPA, seems to be taking risperidone. asks MD if he is alive, then proposes elbow bump. accusing staff of stealing her things (phone), calling mother and pipe cleaner in the middle of the night. slept less than 4 hours. 01/19: more lucid today. concerned about risperidone weight gain. agrees to DC risperidone and try prolixin instead, starting at 2.5 BID. 01/20: very disorganized, bizarre, psychotic today. likely due to equivalent dosing of prolixin being given much lower than prior risperidone. as pt seems to be tolerating prolixin without issues, increase prolixin dosing from 2.5 BID to 5 BID. otherwise continue current mgmt. 01/21: less bizarre and disorganized, but still quite ill. variably compliant with medications. c/o leg pain, lowering self to floor; started cogentin 0.5 BID due to concern for dystonia. c/o nightmares, h/o prazosin with good effect. add prazosin 1 mg QHS as of vic. 01/22: Patients states that she is good. She is scared of [place] herpes after having sex. She refused to participate in an interview with this provider, and walked away stating i don't need a provider. She was observed by this provider, pacing the [place]. Continue current treatment regimen. 01/23: disorganized and dangerous behaviors. voluntarily took IMs. court tomorrow. 01/24: remains disorganized. ran into staff member yesterday, postured and threatened other staff afterward. slept about 6.[address] this afternoon. 01/25/25: Staff 5 6 hours with broken sleep. Compliant with medication with lots of encouragement from yesterday, refused her vitamins in the morning. CT scan was negative, she fell early in the morning, witness her head hit the wall the trying to put her pants on. Slightly improved in mood with medication compliant. VPA level is 52,1 low side. However patient not consistently take it every day. We will recheck. He is on section 8. Pending Wei's order. Less irritable, less racing. 01/26/25: Mostly compliant with medication, to 250/750 mg of Depakote scheduled at bedtime. Labile, restless, poor boundaries, sexually inappropriate behavior, mood is aggravated . Disorganized. Slightly improving but not much. She is better in terms of compliant with medications. 01/27: mostly compliant with meds. improved from last week, more organized and less labile today. agreement reached on medications, reinstate risperidone as primary antipsychotic Tx, remove request for mood stabilizers, remove ativan. DC prolixin, begin taper of VPA, restart risperidone 2 BID, add thorazine 100 and valium 10 at HS to encourage sleep. awaiting med order. 01/28: last evening was pushing, attempting to kick and bite staff, shoulder-checked peer, exposing genitalia to 1:1 staff. took meds last night and this morning. court order received today, reviewed, medications adjusted to comply with order. reportedly more linear today, but pt declined to meet with MD after brief psychotic interaction with MD. 01/29: dysregulated, agitated behaviors continue last night. calmer days. refused VPA this morning. continue VPA taper, decrease from 500 BID to 250 TID as of today. increase HS seroquel from 300 mg to 400 mg as of tonight and HS valium from 10 mg to 15 mg as of tonight for sleep and sylwia. 01/30: same pattern of calm days through mid-afternoon, then decompensation. add third scheduled dosing of risperidone in the middle of the day, schedule valium in the morning and at 3 pm, otherwise continue current mgmt. increase HS seroquel if pt does not sleep more than several hours tonight. continue VPA taper tomorrow. 01/31: calm, morning. severe akathisia eves, unable to sleep or remain still. slept only 2.5 hours. due to 4 mg risperidone daily being inadequate to treat Sx and 6 mg causing severe akathisia, will DC risperidone in favor of a less potent antipsychotic, seroquel. schedule seroquel 100/100/500. taper VPA to 250 BID as of tomorrow. propranolol 20 TID started last night for akathisia, will continue for now. 02/01: no change - monitor akathisia decrease on new regimen 02/02: nicotine patch taper to 7 mg; seems to be doing better with switch to Seroquel and augmentation with Propranolol; primary team may f/u with further discussion of behavioral plan 02/03: much improved from last week. calm, linear, logical, topical. slept 6 hours each the last 3 nights. c/o sedation. decrease daytime valium from 5 BID to 2 BID. decrease daytime seroquel from 100 BID to 75 BID. taper VPA from 250 BID to 250 QHS. 02/04: remains much improved. no overt MSE abnormalities. c/o sedation, decrease seroquel from 75 BID to 50 BID and from 500 QHS to 400 QHS. DC VPA entirely. otherwise continue current mgmt. 02/05: backsliding today. irritable, erratic, more disorganized, labile. stating her intent to stop taking medications, demanding discharge. continue current mgmt. 02/06: much improved today. calm, logical, cogent and topical. pt would like to taper off of valium (addicting) and onto a proper mood stabilizer. workers compensation legal secretary notified. DC daytime valium. restart prazosin due to c/o nightmares. decrease propranolol from 20 TID to 10 TID (should no longer be necessary as off of medications likely to cause akathisia). DC daytime seroquel tomorrow. 02/07: similar conversation to yesterday. DC daytime seroquel. awaiting word from legal re adding lithium. otherwise continue current mgmt. 02/08: keeping to self. irritable edge. pt reports feeling overwhelmed d/t room change. medication compliant. focused on returning home. denies SI/HI/VH/AH. per nursing, slept 6 hours last night. continue current tx plan. 02/09: irritable edge. medication compliant. focused on returning home. intrusive during a peer's treatment; declined to walk away when asked by staff multiple times; poor insight and judgment. pt became upset after meeting with her mother; pt stated, my mom says its my behavior why I'm still here. I think they are keeping me here because I locked myself in that room . Valium decreased to 10mg PO bedtime. 02/10: irritable. medication compliant. Perseverative on discharge. Patient reports sleeping well last night. Appears calmer today. She reports visit with her mother when well. Denies SI/HI/VH/AH. Attending groups. Continue current treatment plan. 02/11/25: Irritable, irrational regarding why she is still being here. Poor insight and poor judgment. Not thinks she has bipolar. She only believes she has has ADHD and autism, therefore she does not need to be here and that no reason to keep her here longer. As a future, she does not think she going to continue taking medication after discharge per nursing. Racing thoughts. At times she is calm, able to attend groups, and some what appropriate. Have good visit with brother and mom yesterday. Not able to discuss for medication change due to agitated/irritable mood. 02/12/25: Been sleeping well, no issue with appetite, attended groups, have visit with mom. Both mom and patient the nurse believe that patient is not manic or having any bipolar features. They only believe that she has ADHD and autism. Mom advocate for patient to be discharged. Mom claims that the treatment team has not ever reach out to her. Both of the agree to have a family meeting in the future. We will leave message to the team to set it up. Patient has some mood swing, but overall, continued to improve with help of the medication. She wants to be off from Valium, but do not want any other medication change. Both Seroquel and Valium is on Muniz order. No other safety concerns. 02/13/25: Slept well, compliant with medications, refused nicotine patch on. Observed visible and attending groups, irritable at times, hyper focused on discharge as her normal baseline of everyday. Do not want any medication change. Reports gaining 28 lb since she got here. Nutrition consult placed. We will add Adderall on allergy list which make her psychotic. Patient to nursing put it in her allergy list. Some labile mood, pressured speech. 02/14: continue current tx plan. 02/15/25: Slept well, manage meal intake, portion size, healthier snacks to control her weight gain. Met with the dietitian today. She also ask staff to pronounce the list of healthy/happy food. Family brought in some healthy snack for her. She was mad being wakened up to get vital signs in the morning by nursing staff. Denies suicidal thoughts, denies hallucinations. She asked questions regarding diagnosis. Educate her regarding psychosis that she came with. Explained with her regarding medication she has been taking here, she will be discharged with, and then work with the outpatient psychiatrist to continue with Muniz orders, making any change if necessary. She is more receptive with the plan, more rationale when she is not in the bad mood. She appreciates the time I spent talking to her today. She attended groups, visible. No ADLs issues. Can be irritable at times. Refused her propranolol in the morning. She took multivitamins later on of the day after she refused. Change nicotine patch to p.r.n.. 02/16/25: Reported that she was angry, other than that she feels mood more stable today. Nursing staff contacted this provider reported that patient in the past was allowed using the head phone at night to cancel out the noise. Patient asked if she was allowed to use it again. Patient focused on healthy food, eating yogurt only in the morning. Family brought in more seeds instead of eating unhealthy food from hospital. She also was irritable as someone touching her clothes in the washer. She has a couple visits today. She feels ready to leave and stable enough to go home to community. She is looking forward to talk to her attending this week regarding discharge. Denies other safety concerns. She has been irritable at times, but able to control her anger. She said this is her baseline, and being in here is make her more irritable. Had phones use overnight order was discontinued per policy. 02/17: calm, logical, cooperative. appearing overly controlled, unnatural in doing so. medications plan at our last meeting resurrected - start lithium, taper seroquel and valium. pt states she is open to mood stabilizers. informs pt he believes she lacks capacity presently and will notify disease education specialist to communicate with pt's disease education specialist. hospital disease education specialist notified. continue current mgmt for now. 02/18: corresponding with disease education specialist re stipulated agreement. pt intrusive with peers and resistant to redirection by staff. with MD pt is calm and cooperative, but attempting to engage in argument justifying her intrusive behavior. continue current mgmt. slept well. 02/19/25: showered in the morning, reasonable, , slept for 6 hours I was up for snack , compliant with meds except Propranonol at 1500 yesterday. She asked if she can use electric razor to trim the pubic hair which was not allowed per safety and unit policy. Continue working healthy diet and snack. 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 No major behavior issues. Sometimes ask for stuff she knows they are not allowed. Continue with the plan. 02/20: refused seroquel last night, did not receive IM back-up. appears with bizarre smile today, believes she doesn't need medications and is ready to discharge. 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 plan for lithium in lieu of valium and seroquel, ideally, reviewed. pt appears to have very poor retention, as this plan has been discussed numerous times. pt was encouraged to discuss with her disease education specialist and was given her disease education specialist's contact information ([facility] number). 02/21: talking about not taking meds once discharged. refusing meds then taking them last second prior to IM administration. labile, irritable. very disorganized today, severely impaired cognitive performance. restart valium 5 and seroquel 75 BID at 0900, 1500. otherwise continue current mgmt. awaiting word from gas appliance repairer re stipulated agreement for mood stabilizers. 02/22: Continue current regimen and plans. Orajel ordered. 02/23: Continue current plans and regimen 02/24: more organized and less oppositional, labile, intrusive, impulsive than monday. willing to take lithium. per disease education specialist, we may have a stipulated agreement. continue current mgmt for now, hoping to start lithium GIRISH. 02/25/25: Amend the treatment plan to include mood stabilizer [place] Carbonate as primary treatment at therapeutic blood levels. Organized at times but when she is more anxious, less rationale. She does not accept new add on [place] on Wei's order that is effective today it is fake, you can keep it. I need to talk to my pipe cleaner . why I need [place]?I do not have bipolar . She believes she has autism and ADHD only. She asked inappropriate question such as if this provider knowing what JERSON and if this provider used it before. Patient asked to get her OP therapist to involve in decision making on meds. Prior to this conversation, she was calm, showing pictures of herself and family members that she has personal space for them on the wall. Some labile mood, underline irritable but no angry outburst. At some point, she states that Seroquel added on during daytime is helping with her mood and that I was not mad when she was waken up this morning. Denies SI/SIB/HI/AVH [place] ER 600mg daily at HS for mood. With some labs ordered for roshanildefonso CMP, TSH, Free T4. 02/26/25 Slept for 8 hours, compliant with medications except lithium. Rumination, poor insight and judgment, asking inappropriate questions, thought processes not on treatment, racing, anxious, appears to be paranoid. The RN showed the new amended Wei order, she does not believe it is true and wanted fire her disease education specialist. HRO notified, met with patient. Continued to she is not bipolar, believes she has PTSD symptoms that causing her mood changes. Want this to talk to her outpatient therapist. We will arrange to make phone call for collateral. Change [place] ER from 600mg at HS to BID with IM of 5mg Valium IM back up if refuse. 02/27/25: Slept for 8 hours, compliant with medications, except for lithium-received Valium IM backup. Continued to resist to mood stabilizer, poor judgment, poor insight, do not believe she has bipolar. Nursing staff reports she was rude, inappropriate with staff, asking inappropriate questions. Racing thoughts. Request information regarding lithium. Nursing staff pronounced the handout, she has not in hand. Side effects noted. We will contact Josy Franklin- [facility] therapist at [phone] per patient request as she believes that her therapist should be involved in the decision making regarding diagnosis. 02/28/25: Continued to improve in sleep. Medication compliant, except for lithium yesterday morning. She took the evening dose per nursing report. Nurse's also provide patient with information related to lithium. Patient request the current [facility] order. Given a copy. She finally wants to keep it as she has been referred to review. She requests take her off from Seroquel if this provider wants her to text lithium which is unreasonable as she requests to take her off of them. Not able to rationale with her about the medication plan. Slightly having some open and accepting lithium. At home she will compliant do well with the lithium. In the future when she got into therapeutic level targeting labile mood, we can taper down on Seroquel or taper down on Valium. At this current time, due to current mental status, she can not process the information, not register in her mind for medication plans at this time. She does not trust the provider, she does not believe she has bipolar which is hard to convince her to take lithium. Labile mood, irritable and can be rude. Monitor over weakens for [place] and other medication compliant. IM back up available per Flavio' order. Attempted to call Josy Franklin- [facility] therapist at [phone]. Left voices message with front worker. Waiting for a call back. 03/01: calm, cooperative, logical. still processing difficulties, but improved from last time we met. taking lithium for 2 days now, slept 8 hours overnight. decrease seroquel 75/75/400 to 50/50/300 and valium 5 BID to 4 BID. otherwise continue current mgmt. 03/02: declined interview for phone call. per staff, taking meds, accusing staff of trying to change her personality. 03/03/25: Patient slept for 7 hours, compliant with medication p.o Included lithium. Some labile mood, irritable, making accusation regarding what provider told her during assessment. She reported that she has has been calling outpatient therapist repeatedly but has not received a call back. Patient was informed that this provider also called, waiting for a call back as well. She asked why can not she take medication like this with the outpatient provider. Explained to her that she needs to be more stable before we discharge her, as now per her perception, she may feel that she is ready to go home, but other people in the treatment team do not think she is ready yet. Per nursing patient was better over the weekends, less provocative. Think we are changing her personality. We will check the lithium level on Monday morning. Been taking consistently the past 3 and half days. 03/04/25: Patient slept well, compliant with medication. Continue calling outpatient therapist herself. She has not hearing back from them. She reported that she wants to go home, therefore she will do whatever she needs to do to get home. 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 Explained to her that we will get the level tomorrow, level coming back subtherapeutic, we will increase dose of the lithium. In the meantime, we will consider to lower Seroquel down, mood is more stable. She is less labile today, attended to some groups. No safety concern. Constricted affect. Less irritable. Holland[place] level for tomorrow morning. 03/05/25: Patient slept for 8 hours, was medication compliant. No IM backup need to be used. She has questions related to what she have to do and what is next step to get discharge. Explained the plan that we are waiting for the lithium level. If it is sub therapeutic, we will titrate until we get the therapeutic level. When she is more stable, we will plan to discharge her to outpatient provider in which she can continue taking medications. She appeared to be less labile, reasonable, more logical, able to take in information. No angry outbursts, attend his groups except when she has visiors. Continue working on healthy snack and diet. Hollandale level is 0.29; subtherapeutic. Increase Holland[place] up to 900mg daily in divided dose. Recheck in 5 days 03/06/25: Patient slept for 7 hours, was medication compliant. Denies side effects. She is aware of the lithium change yesterday, and asked what the plan from now on. She agrees with the plan of lithium level in the next 5 days, and can be having some other medication adjusted. However she said she wants to leave everything the same like it is now when I was talking to her regarding benzo taper down. We will leave the same dose of benzo and Seroquel. We will revisit to see if the patient have thoughts of wanting to taper down on benzo as she is more stable. I will leave it there the way it is now so that she can have some control over her treatment. Reports to nursing that she feel a bit anxious and depressed. No argumentative, much less labile, more red rational and logical. Pacing the [place] to get steps in. Intermittently attended groups, no behavior issues. Most likely to be discharged late next week. 03/07/25: Continued to improve in mood, sleep and energy, compliant with medications, no side effects. She is more logical, more focused on treatment, continue working on healthy diet, walking the [place] to get some exercise done, no labile mood. She agree with the medication change but asked them do much of change to make her not stable and not able to go home. No argumentative, very reasonable. Denies anxiety and depression, denies safety concerns Reduce Valium 10 mg at bedtime down to 5 mg. [place] level, TSH, CMP on 03/10/25. 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 [place] level 03/10/202503/09: eager to clarify she would like to maintain current therapist and that agency and have a change of prescriber within the same agency (attributes med changes pre admission as reason for decompensation etc..) and ok seeing different prescriber remotely if needed as long as they can maintain their current therapist 03/10/25: Continue with current plan, Continue to slowly tirtrate down on BZD. Patient agreed with the plan. Want Doctor note prior to discharge so she can be back to work.She will work on changing sleep pattern to appropriate to the job which is worrying me. Hope this is not affect her current mental health as she is pretty stable. SW continues working on aftercare appointments. She usually work at 5PM to 3 AM five days a week but will slowly back to work. Reduce Valium 4mg BID to 4 daily. Discontinue 1-1 monitor 30 min after meds. [place] level 0.61 therapeutic level. 03/11/25: Patient slept well, no issue with appetite, observed attended groups, social appropriate with peers and staff, was medication compliant, denies side effects. She did well on benzo taper denies safety concerns. Continued to improve in mood and sleep. Logical, thought processes on treatment. Verbally saying that she will continue taking medication upon discharge. She sending home with family's some belongings as to be pair being discharge this . Discontinue morning Valium tomorrow morning. Psych appointment set up by medical social consultant. Pending therapist appointment Patient educated on: diagnosis, medication risk/benefits and therapeutic strategies Informed Consent: understands Reason for continued inpatient stay Substantial Risk for: med/psych decompensation Time Spent With Patient Time: Total time managing care of this patient today ____ minutes.
[2025-03-11 20:00] VITALS: BP 115/77; PULSE 94; RESP 16; TEMP 36.8; O2SAT 96
[2025-03-12 09:18] VITALS: BP 140/63; PULSE 91; RESP 16; TEMP 36.6; O2SAT 97
[2025-03-12] MEDS: Calcium + Vitamin D 250 MG TABLET PO ×2 (09:22→16:17)
[2025-03-12] MEDS: Lidocaine 4 % Patch ADH..PATCH 1 PATCH TRANSDERMA (09:23)
--- NOTE | 2025-03-12 09:53 | P.PNPSI_ITS ---
Subjective Subjective Date of Service: 03/12/25 Reason For Visit: Crisis Subjective Notes: Muniz Order and Section 8 Healthcare Proxy: No Guardianship: No Medical Problems Affecting Mental Status: No Interim History: Medical record and nursing notes reviewed; case discussed during rounds with team/nursing staff, and met with patient for supportive therapy/psychoeducation, as well as medication management. Continue improve in mood and sleep, compliant with medications. No behavior issues. She is accepting aftercare plan. Review FLU appointments. Accepting medication sending home to prefer pharmacy. Discussed with patient potential decrease/reduce benzo at bedtime with outpatient providers. Denies safety concerns. She is logical, visible, attending groups, calm and pleasant. Medication Compliance: Yes Side effects from medications: No Attending Groups: Yes Review of Systems Acute medical concerns: No Medical Review of Systems: unchanged Review of Systems Review of Systems Constitutional: Denies fatigue and Denies fever(s) Cardiovascular: Denies chest pain and Denies dyspnea Respiratory: Denies dyspnea Gastrointestinal: Denies abdominal pain Psychiatric: denies suicidal ideation Endocrine: Denies fatigue Yes all other systems are reviewed and are negative Mental Status Exam Mental Status Exam Narrative: Appearance: adequately dressed and groomed Behavior: no PMA/PMR. Speech: nml amount, nml loudness. nml latency. TP: organized, linear. logical TC: Took medication PO, focus on treatment Mood: good Affect: calm, constricted AH/VH: denies Insight/judgment: good Memory/cog: alert, good . Diagnostics Vital Signs (24Hr): Vital Signs - 24 hr 03/11/25 16:19 03/11/25 20:00 03/12/25 09:18 Temperature 98.2 F 98 F Pulse Rate 91 94 91 Respiratory Rate 16 16 Blood Pressure 121/67 115/77 140/63 H Pulse Oximetry 96 97 Oxygen Delivery Method Room Air Room Air BMI result Body Mass Index 25.9 Labs 01/09/25 16:36 03/10/25 08:13 Imaging Radiology Impressions: ITS Impressions Hand X-Ray 01/16/25 11:30 IMPRESSION: Unremarkable right hand Electronically signed by: Casa Rush MD 01/16/2025 11:46 AM EDT Hand X-Ray 01/29/25 07:30 IMPRESSION: Unremarkable examination of the right hand. Electronically signed by: Obdulio Tolbert MD 01/30/2025 07:56 AM EDT RP Medications Medications Current Medications Acetaminophen (Acetaminophen 325 Mg Tablet) 650 mg PO Q6H PRN PRN Reason: Headache/Pain, Scale 1-10 Last Admin: 03/06/25 08:55 Dose: 650 mg Al Hydroxide/Mg Hydroxide (Magnesium Hydrox/Alum Hydrox 30 Ml Oral.Susp) 30 ml PO Q6H PRN PRN Reason: Heartburn/Nausea Last Admin: 01/30/25 14:06 Dose: 30 ml Artificial Tears (Artificial Tears 15 Ml Drops) 2 drop EYE-BOTH Q4H PRN PRN Reason: Dry Eyes Last Admin: 02/06/25 09:24 Dose: 2 drop Benzocaine (Benzocaine 20 % Oral Gel 14 Gm Tube) 1 appl MUCOUS MEM QID PRN; Protocol PRN Reason: Pain, Mild 1-3,fever,headache Last Admin: 03/06/25 22:10 Dose: 1 appl Calcium Carbonate/Cholecalciferol (Calcium + Vitamin D 250 Mg Tablet) 250 mg PO BIDWM VERONICA Last Admin: 03/12/25 09:22 Dose: 250 mg Diazepam (Diazepam 10 Mg/2 Ml Cartridge) 5 mg IM TID PRN PRN Reason: refuse Espino and Valium Last Admin: 02/27/25 09:00 Dose: 5 mg Diazepam (Diazepam 5 Mg Tablet) 5 mg PO BEDTIME VERONICA Last Admin: 03/11/25 20:06 Dose: 5 mg Docusate Sodium (Docusate Sodium 100 Mg Capsule) 100 mg PO BID PRN PRN Reason: Constipation Last Admin: 01/30/25 20:10 Dose: 100 mg Haloperidol Lactate (Haloperidol Lactate 5 Mg/Ml Vial) 5 mg IM TID PRN PRN Reason: refusal of scheduled seroquel Last Admin: 02/04/25 20:14 Dose: 5 mg Hydrocortisone (Hydrocortisone 2.5 % Rectal Cr 30 Gm Tube) 1 appl OR DAILY PRN PRN Reason: hemrroids Last Admin: 01/26/25 14:57 Dose: 1 appl Lidocaine (Lidocaine 4 % Patch Adh..Patch) 1 patch TRANSDERMA DAILY PRN; Protocol PRN Reason: left calf pain Last Admin: 03/12/25 09:23 Dose: 1 patch Espino Carbonate (Espino Carbonate Er 300 Mg Tablet.Er) 300 mg PO BID VERONICA Last Admin: 03/12/25 09:21 Dose: 300 mg Espino Carbonate (Espino Carbonate Er 300 Mg Tablet.Er) 300 mg PO BEDTIME VERONICA Last Admin: 03/11/25 20:06 Dose: 300 mg Magnesium Hydroxide (Milk Of Magnesia 30 Ml Oral.Susp) 30 ml PO DAILY PRN PRN Reason: Constipation Last Admin: 01/26/25 14:59 Dose: 30 ml Multivitamins/Vitamin C (Multivitamin Tablet) 1 tab PO DAILY VERONICA Last Admin: 03/12/25 09:22 Dose: 1 tab Nicotine (Nicotine 7 Mg Patch.Td24) 7 mg TRANSDERMA DAILY PRN PRN Reason: Nicotine craving Nicotine Polacrilex (Nicotine Polacrilex 2 Mg Gum) 4 mg BUCCAL Q2H PRN PRN Reason: Nicotine Cravings Last Admin: 02/21/25 17:26 Dose: 4 mg Polyethylene Glycol (Polyethylene Glycol 3350 17 Gm Powd.Pack) 17 gm PO DAILY PRN PRN Reason: constipation Prazosin HCl (Prazosin Hcl 1 Mg Capsule) 1 mg PO BEDTIME VERONICA; Protocol Last Admin: 03/11/25 20:06 Dose: 1 mg Propranolol HCl (Propranolol Hcl 10 Mg Tablet) 10 mg PO TID VERONICA; Protocol Last Admin: 03/12/25 09:22 Dose: 10 mg Quetiapine Fumarate (Quetiapine Fumarate 50 Mg Tablet) 50 mg PO BID@0900,1500 [facility] Last Admin: 03/12/25 09:22 Dose: 50 mg Quetiapine Fumarate (Quetiapine Fumarate 300 Mg Tablet) 300 mg PO BEDTIME VERONICA Last Admin: 03/11/25 20:05 Dose: 300 mg Allergies Allergies Allergy/AdvReac Type Severity Reaction Status Date / Time amphetamine (From Adderall) Allergy Severe psychosis/ Verified 02/13/25 22:40 Manic dextroamphetamine (From Allergy Severe psychosis/ Verified 02/13/25 22:40 Adderall) Manic olanzapine (From Zyprexa) AdvReac Rash Verified 12/31/24 18:41 Assessment & Plan Assessment & Plan (1) Psychosis: Status: Acute Code(s): F29 - Unspecified psychosis not due to a substance or known physiological condition Plan Ms. Sheridan is a 34 year-old woman who presents with s/s of psychosis, disorganized, some degree of paranoia. She had similar episode back in 2020. 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 I do suspect that there may be underlying psychiatric disorder that is triggered by amphetamine use but not necessarily caused by it. Further evaluation to clarify dx is needed. We discussed inpt level of care. We also discussed restarting risperidone 1mg po BID. low dose clonazepam. continue clonidine. 1. IPLOC 2. start risperidone 1mg po BID. Clonazepam 0.5mg po BID. 01/05: Continue current regimen and plans. 01/06: slept only 2 hours, disorganized, decompensated behaviors. unable to interact cogently. refusing risperidone, will offer seroquel instead. possible bipolar diathesis, T/C mood stabilizer. delirium also a possibility, as the mental status change since admission appears to be striking. 01/07: took seroquel 200 last night, slept 5.5 hours. more organized, linear, able to engage today. continue current mgmt. 01/08: refused seroquel last NOC, slept only 30 minutes. agitated, bizarre, disorganized today. commitment paperwork filed. 01/09: refused meds yesterday but got IMs due to behaviors (outbursts, touching peers, yelling, banging doors, pushed her sitter, climbing on tables and chairs. threatening to stab self with pens). more linear and engageable today, once again the day after having takenm medication. agrees to continue to take seroquel 200 mg QHS. 01/10: took seroquel last NOC and slept 4 hours overnight, but bizarre today. less agitation and intrusiveness than yesterday, but still bizarre and fairly intrusive. pt appears willing to take risperidone, will DC seroquel and return to dosing of risperidone 2 mg BID. took first dose this afternoon. court next monday. 01/11 very paranoid, fearful, taking medications 01/12 continue tx. 01/13: appears a bit more organized today than when not taking medications, although slow and processing poorly. declines to sign CV. commitment hearing tomorrow. 01/14: hearing continued until 01/24 for SINDY. add klonopin 0.5 BID ODT, change risperidone formulation to liquid (pt has been inducing vomiting repeatedly with toothbrush). hold toothbrush unless actively brushing teeth. continues interactive to some extent with MD today, but has been grabbing badges, touching others, and tried to vault into the nursing station in the past 24H. 01/15: IM medication after threatening to punch senior staff specialized employment with intrusive and aggressive behaviors toward peers. pt did not take klonopin as ordered yesterday. DC klonopin and start VPA 500 BID. per staff, running. tried to make herself vomit after taking PRN. labile. ate her feces in the shower and tried to feed it to her 1:1. crawling under tables. tried to jump into nurses station x2. took her shirt off and swinging it around. did not sleep at all. slept at 7:30am. 01/16: refusing VPA, taking risperidone. napped after IMs yesterday. has been bizarre and labile since. slept only 2 hours overnight. continue current mgmt. 01/17: agitated, bizarre, and aggressive behaviors yesterday (punching and kicking beard, stripping off in milieu, attempting to intimidate staff, grabbing stress balls out of staff's hands). did take VPA this morning on its being offered a second time. more calm today. taking risperidone. 01/18: intermittently refusing VPA, seems to be taking risperidone. asks MD if he is alive, then proposes elbow bump. accusing staff of stealing her things (phone), calling mother and delivery man in the middle of the night. slept less than 4 hours. 01/19: more lucid today. concerned about risperidone weight gain. agrees to DC risperidone and try prolixin instead, starting at 2.5 BID. 01/20: very disorganized, bizarre, psychotic today. likely due to equivalent dosing of prolixin being given much lower than prior risperidone. as pt seems to be tolerating prolixin without issues, increase prolixin dosing from 2.5 BID to 5 BID. otherwise continue current mgmt. 01/21: less bizarre and disorganized, but still quite ill. variably compliant with medications. c/o leg pain, lowering self to floor; started cogentin 0.5 BID due to concern for dystonia. c/o nightmares, h/o prazosin with good effect. add prazosin 1 mg QHS as of tonight. 01/22: Patients states that she is good. She is scared of [place] herpes after having sex. She refused to participate in an interview with this provider, and walked away stating i don't need a provider. She was observed by this provider, pacing the [place]. Continue current treatment regimen. 01/23: disorganized and dangerous behaviors. voluntarily took IMs. court tomorrow. 01/24: remains disorganized. ran into staff member yesterday, postured and threatened other staff afterward. slept about 6.[address] this afternoon. 01/25/25: Staff 5 6 hours with broken sleep. Compliant with medication with lots of encouragement from yesterday, refused her vitamins in the morning. CT scan was negative, she fell early in the morning, witness her head hit the wall the trying to put her pants on. Slightly improved in mood with medication compliant. VPA level is 52,1 low side. However patient not consistently take it every day. We will recheck. He is on section 8. Pending Wei's order. Less irritable, less racing. 01/26/25: Mostly compliant with medication, to 250/750 mg of Depakote scheduled at bedtime. Labile, restless, poor boundaries, sexually inappropriate behavior, mood is aggravated . Disorganized. Slightly improving but not much. She is better in terms of compliant with medications. 01/27: mostly compliant with meds. improved from last week, more organized and less labile today. agreement reached on medications, reinstate risperidone as primary antipsychotic Tx, remove request for mood stabilizers, remove ativan. DC prolixin, begin taper of VPA, restart risperidone 2 BID, add thorazine 100 and valium 10 at HS to encourage sleep. awaiting med order. 01/28: last evening was pushing, attempting to kick and bite staff, shoulder- checked peer, exposing genitalia to 1:1 staff. took meds last night and this morning. court order received today, reviewed, medications adjusted to comply with order. reportedly more linear today, but pt declined to meet with MD after brief psychotic interaction with MD. 01/29: dysregulated, agitated behaviors continue last night. calmer days. refused VPA this morning. continue VPA taper, decrease from 500 BID to 250 TID as of today. increase HS seroquel from 300 mg to 400 mg as of tonight and HS valium from 10 mg to 15 mg as of tonight for sleep and sylwia. 01/30: same pattern of calm days through mid-afternoon, then decompensation. add third scheduled dosing of risperidone in the middle of the day, schedule valium in the morning and at 3 pm, otherwise continue current mgmt. increase HS seroquel if pt does not sleep more than several hours tonight. continue VPA taper tomorrow. 01/31: calm, morning. severe akathisia eves, unable to sleep or remain still. slept only 2.5 hours. due to 4 mg risperidone daily being inadequate to treat Sx and 6 mg causing severe akathisia, will DC risperidone in favor of a less potent antipsychotic, seroquel. schedule seroquel 100/100/500. taper VPA to 250 BID as of tomorrow. propranolol 20 TID started last night for akathisia, will continue for now. 02/01: no change - monitor akathisia decrease on new regimen 02/02: nicotine patch taper to 7 mg; seems to be doing better with switch to Seroquel and augmentation with Propranolol; primary team may f/u with further discussion of behavioral plan 02/03: much improved from last week. calm, linear, logical, topical. slept 6 hours each the last 3 nights. c/o sedation. decrease daytime valium from 5 BID to 2 BID. decrease daytime seroquel from 100 BID to 75 BID. taper VPA from 250 BID to 250 QHS. 02/04: remains much improved. no overt MSE abnormalities. c/o sedation, decrease seroquel from 75 BID to 50 BID and from 500 QHS to 400 QHS. DC VPA entirely. otherwise continue current mgmt. 02/05: backsliding today. irritable, erratic, more disorganized, labile. stating her intent to stop taking medications, demanding discharge. continue current mgmt. 02/06: much improved today. calm, logical, cogent and topical. pt would like to taper off of valium (addicting) and onto a proper mood stabilizer. legal services professional notified. DC daytime valium. restart prazosin due to c/o nightmares. decrease propranolol from 20 TID to 10 TID (should no longer be necessary as off of medications likely to cause akathisia). DC daytime seroquel tomorrow. 02/07: similar conversation to yesterday. DC daytime seroquel. awaiting word from legal re adding lithium. otherwise continue current mgmt. 02/08: keeping to self. irritable edge. pt reports feeling overwhelmed d/t room change. medication compliant. focused on returning home. denies SI/HI/VH/AH. per nursing, slept 6 hours last night. continue current tx plan. 02/09: irritable edge. medication compliant. focused on returning home. intrusive during a peer's treatment; declined to walk away when asked by staff multiple times; poor insight and judgment. pt became upset after meeting with her mother; pt stated, my mom says its my behavior why I'm still here. I think they are keeping me here because I locked myself in that room . Valium decreased to 10mg PO bedtime. 02/10: irritable. medication compliant. Perseverative on discharge. Patient reports sleeping well last night. Appears calmer today. She reports visit with her mother when well. Denies SI/HI/VH/AH. Attending groups. Continue current treatment plan. 02/11/25: Irritable, irrational regarding why she is still being here. Poor insight and poor judgment. Not thinks she has bipolar. She only believes she has has ADHD and autism, therefore she does not need to be here and that no reason to keep her here longer. As a future, she does not think she going to continue taking medication after discharge per nursing. Racing thoughts. At times she is calm, able to attend groups, and some what appropriate. Have good visit with brother and mom yesterday. Not able to discuss for medication change due to agitated/irritable mood. 02/12/25: Been sleeping well, no issue with appetite, attended groups, have visit with mom. Both mom and patient the nurse believe that patient is not manic or having any bipolar features. They only believe that she has ADHD and autism. Mom advocate for patient to be discharged. Mom claims that the treatment team has not ever reach out to her. Both of the agree to have a family meeting in the future. We will leave message to the team to set it up. Patient has some mood swing, but overall, continued to improve with help of the medication. She wants to be off from Valium, but do not want any other medication change. Both Seroquel and Valium is on Muniz order. No other safety concerns. 02/13/25: Slept well, compliant with medications, refused nicotine patch on. Observed visible and attending groups, irritable at times, hyper focused on discharge as her normal baseline of everyday. Do not want any medication change. Reports gaining 28 lb since she got here. Nutrition consult placed. We will add Adderall on allergy list which make her psychotic. Patient to nursing put it in her allergy list. Some labile mood, pressured speech. 02/14: continue current tx plan. 02/15/25: Slept well, manage meal intake, portion size, healthier snacks to control her weight gain. Met with the dietitian today. She also ask staff to pronounce the list of healthy/happy food. Family brought in some healthy snack for her. She was mad being wakened up to get vital signs in the morning by nursing staff. Denies suicidal thoughts, denies hallucinations. She asked questions regarding diagnosis. Educate her regarding psychosis that she came with. Explained with her regarding medication she has been taking here, she will be discharged with, and then work with the outpatient psychiatrist to continue with Muniz orders, making any change if necessary. She is more receptive with the plan, more rationale when she is not in the bad mood. She appreciates the time I spent talking to her today. She attended groups, visible. No ADLs issues. Can be irritable at times. Refused her propranolol in the morning. She took multivitamins later on of the day after she refused. Change nicotine patch to p.r.n.. 02/16/25: Reported that she was angry, other than that she feels mood more stable today. Nursing staff contacted this provider reported that patient in the past was allowed using the head phone at night to cancel out the noise. Patient asked if she was allowed to use it again. Patient focused on healthy food, eating yogurt only in the morning. Family brought in more seeds instead of eating unhealthy food from hospital. She also was irritable as someone touching her clothes in the washer. She has a couple visits today. She feels ready to leave and stable enough to go home to community. She is looking forward to talk to her attending this week regarding discharge. Denies other safety concerns. She has been irritable at times, but able to control her anger. She said this is her baseline, and being in here is make her more irritable. Had phones use overnight order was discontinued per policy. 02/17: calm, logical, cooperative. appearing overly controlled, unnatural in doing so. medications plan at our last meeting resurrected - start lithium, taper seroquel and valium. pt states she is open to mood stabilizers. informs pt he believes she lacks capacity presently and will notify ip technology transactions attorney to communicate with pt's ip technology transactions attorney. hospital ip technology transactions attorney notified. continue current mgmt for now. 02/18: corresponding with ip technology transactions attorney re stipulated agreement. pt intrusive with peers and resistant to redirection by staff. with pt is calm and cooperative, but attempting to engage in argument justifying her intrusive behavior. continue current mgmt. slept well. 02/19/25: showered in the morning, reasonable, , slept for 6 hours I was up for snack , compliant with meds except Propranonol at 1500 yesterday. She asked if she can use electric razor to trim the pubic hair which was not allowed per safety and unit policy. Continue working healthy diet and snack. 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 No major behavior issues. Sometimes ask for stuff she knows they are not allowed. Continue with the plan. 02/20: refused seroquel last night, did not receive IM back-up. appears with bizarre smile today, believes she doesn't need medications and is ready to discharge. 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 plan for lithium in lieu of valium and seroquel, ideally, reviewed. pt appears to have very poor retention, as this plan has been discussed numerous times. pt was encouraged to discuss with her ip technology transactions attorney and was given her ip technology transactions attorney's contact information ([facility] number). 02/21: talking about not taking meds once discharged. refusing meds then taking them last second prior to IM administration. labile, irritable. very disorganized today, severely impaired cognitive performance. restart valium 5 and seroquel 75 BID at 0900, 1500. otherwise continue current mgmt. awaiting word from flexo folder gluer operator re stipulated agreement for mood stabilizers. 02/22: Continue current regimen and plans. Orajel ordered. 02/23: Continue current plans and regimen 02/24: more organized and less oppositional, labile, intrusive, impulsive than monday. willing to take lithium. per ip technology transactions attorney, we may have a stipulated agreement. continue current mgmt for now, hoping to start lithium GIRISH. 02/25/25: Amend the treatment plan to include mood stabilizer Espino Carbonate as primary treatment at therapeutic blood levels. Organized at times but when she is more anxious, less rationale. She does not accept new add on Espino on Wei's order that is effective today it is fake, you can keep it. I need to talk to my delivery man . why I need Espino?I do not have bipolar . She believes she has autism and ADHD only. She asked inappropriate question such as if this provider knowing what JERSON and if this provider used it before. Patient asked to get her OP therapist to involve in decision making on meds. Prior to this conversation, she was calm, showing pictures of herself and family members that she has personal space for them on the wall. Some labile mood, underline irritable but no angry outburst. At some point, she states that Seroquel added on during daytime is helping with her mood and that I was not mad when she was waken up this morning. Denies SI/SIB/HI/AVH Espino ER 600mg daily at HS for mood. With some labs ordered for basleine CMP, TSH, Free T4. 02/26/25 Slept for 8 hours, compliant with medications except lithium. Rumination, poor insight and judgment, asking inappropriate questions, thought processes not on treatment, racing, anxious, appears to be paranoid. The RN showed the new amended Wei order, she does not believe it is true and wanted fire her ip technology transactions attorney. HRO notified, met with patient. Continued to she is not bipolar, believes she has PTSD symptoms that causing her mood changes. Want this to talk to her outpatient therapist. We will arrange to make phone call for collateral. Change Espino ER from 600mg at HS to BID with IM of 5mg Valium IM back up if refuse. 02/27/25: Slept for 8 hours, compliant with medications, except for lithium- received Valium IM backup. Continued to resist to mood stabilizer, poor judgment, poor insight, do not believe she has bipolar. Nursing staff reports she was rude, inappropriate with staff, asking inappropriate questions. Racing thoughts. Request information regarding lithium. Nursing staff pronounced the handout, she has not in hand. Side effects noted. We will contact Josy BLACKBURN therapist at [phone] per patient request as she believes that her therapist should be involved in the decision making regarding diagnosis. 02/28/25: Continued to improve in sleep. Medication compliant, except for lithium yesterday morning. She took the evening dose per nursing report. Nurse's also provide patient with information related to lithium. Patient request the current [facility] order. Given a copy. She finally wants to keep it as she has been referred to review. She requests take her off from Seroquel if this provider wants her to text lithium which is unreasonable as she requests to take her off of them. Not able to rationale with her about the medication plan. Slightly having some open and accepting lithium. At home she will compliant do well with the lithium. In the future when she got into therapeutic level targeting labile mood, we can taper down on Seroquel or taper down on Valium. At this current time, due to current mental status, she can not process the information, not register in her mind for medication plans at this time. She does not trust the provider, she does not believe she has bipolar which is hard to convince her to take lithium. Labile mood, irritable and can be rude. Monitor over weakens for Espino and other medication compliant. IM back up available per Flavio' order. Attempted to call [facility] therapist at [phone]. Left voices message with front office spec. Waiting for a call back. 03/01: calm, cooperative, logical. still processing difficulties, but improved from last time we met. taking lithium for 2 days now, slept 8 hours overnight. decrease seroquel 75/75/400 to 50/50/300 and valium 5 BID to 4 BID. otherwise continue current mgmt. 03/02: declined interview for phone call. per staff, taking meds, accusing staff of trying to change her personality. 03/03/25: Patient slept for 7 hours, compliant with medication p.o Included lithium. Some labile mood, irritable, making accusation regarding what provider told her during assessment. She reported that she has has been calling outpatient therapist repeatedly but has not received a call back. Patient was informed that this provider also called, waiting for a call back as well. She asked why can not she take medication like this with the outpatient provider. Explained to her that she needs to be more stable before we discharge her, as now per her perception, she may feel that she is ready to go home, but other people in the treatment team do not think she is ready yet. Per nursing patient was better over the weekends, less provocative. Think we are changing her personality. We will check the lithium level on Monday morning. Been taking consistently the past 3 and half days. 03/04/25: Patient slept well, compliant with medication. Continue calling outpatient therapist herself. She has not hearing back from them. She reported that she wants to go home, therefore she will do whatever she needs to do to get home. 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 Explained to her that we will get the level tomorrow, level coming back subtherapeutic, we will increase dose of the lithium. In the meantime, we will consider to lower Seroquel down, mood is more stable. She is less labile today, attended to some groups. No safety concern. Constricted affect. Less irritable. Espino level for tomorrow morning. 03/05/25: Patient slept for 8 hours, was medication compliant. No IM backup need to be used. She has questions related to what she have to do and what is next step to get discharge. Explained the plan that we are waiting for the lithium level. If it is sub therapeutic, we will titrate until we get the therapeutic level. When she is more stable, we will plan to discharge her to outpatient provider in which she can continue taking medications. She appeared to be less labile, reasonable, more logical, able to take in information. No angry outbursts, attend his groups except when she has visiors. Continue working on healthy snack and diet. Espino level is 0.29; subtherapeutic. Increase Espino up to 900mg daily in divided dose. Recheck in 5 days 03/06/25: Patient slept for 7 hours, was medication compliant. Denies side effects. She is aware of the lithium change yesterday, and asked what the plan from now on. She agrees with the plan of lithium level in the next 5 days, and can be having some other medication adjusted. However she said she wants to leave everything the same like it is now when I was talking to her regarding benzo taper down. We will leave the same dose of benzo and Seroquel. We will revisit to see if the patient have thoughts of wanting to taper down on benzo as she is more stable. I will leave it there the way it is now so that she can have some control over her treatment. Reports to nursing that she feel a bit anxious and depressed. No argumentative, much less labile, more red rational and logical. Pacing the [place] to get steps in. Intermittently attended groups, no behavior issues. Most likely to be discharged late next week. 03/07/25: Continued to improve in mood, sleep and energy, compliant with medications, no side effects. She is more logical, more focused on treatment, continue working on healthy diet, walking the [place] to get some exercise done, no labile mood. She agree with the medication change but asked them do much of change to make her not stable and not able to go home. No argumentative, very reasonable. Denies anxiety and depression, denies safety concerns Reduce Valium 10 mg at bedtime down to 5 mg. Espino level, TSH, CMP on 03/10/25. 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 Espino level 03/10/202503/09: eager to clarify she would like to maintain current therapist and that agency and have a change of prescriber within the same agency (attributes med changes pre admission as reason for decompensation etc..) and ok seeing different prescriber remotely if needed as long as they can maintain their current therapist 03/10/25: Continue with current plan, Continue to slowly tirtrate down on BZD. Patient agreed with the plan. Want Doctor note prior to discharge so she can be back to work.She will work on changing sleep pattern to appropriate to the job which is worrying me. Hope this is not affect her current mental health as she is pretty stable. SW continues working on aftercare appointments. She usually work at 5PM to 3 AM five days a week but will slowly back to work. Reduce Valium 4mg BID to 4 daily. Discontinue 1-1 monitor 30 min after meds. Espino level 0.61 therapeutic level. 03/11/25: Patient slept well, no issue with appetite, observed attended groups, social appropriate with peers and staff, was medication compliant, denies side effects. She did well on benzo taper denies safety concerns. Continued to improve in mood and sleep. Logical, thought processes on treatment. Verbally saying that she will continue taking medication upon discharge. She sending home with family's some belongings as to be pair being discharge this . Discontinue morning Valium tomorrow morning. Psych appointment set up by health social work professor. Pending therapist appointment 03/12/25: Continue improve in mood and sleep, compliant with medications. No behavior issues. She is accepting aftercare plan. Review FLU appointments. Accepting medication sending home to prefer pharmacy. Discussed with patient potential decrease/reduce benzo at bedtime with outpatient providers. Denies safety concerns. She is logical, visible, attending groups, calm and pleasant. ,Per social work therapist got back to her, accept the patient back. Review appointments with patient. Review with medication we will send home with. We will discontinue all Wei's p.r.n. backup order. Boyfriend and sister will pick her up tomorrow by 10:30. He she was stay with the boyfriend after discharge. Patient educated on: diagnosis, medication risk/benefits and therapeutic strategies Informed Consent: further education needed Reason for continued inpatient stay Substantial Risk for: med/psych decompensation Time Spent With Patient Time: Total time managing care of this patient today ____ minutes.
[2025-03-12 16:17] VITALS: BP 117/72; PULSE 96
[2025-03-12 20:00] VITALS: BP 118/68; PULSE 90; RESP 16; TEMP 36.6; O2SAT 98
[2025-03-13 07:36] VITALS: BP 96/53; PULSE 85; RESP 18; TEMP 36.9; O2SAT 98
[2025-03-13] MEDS: Calcium + Vitamin D 250 MG TABLET PO (08:30)
--- NOTE | 2025-03-13 09:21 | PM.PSYDC ---
DS: Providers Provider Date of Service: 03/13/25 Date of admission: 01/02/25 14:29 Date of discharge: 03/13/25 Primary care physician: Mercy Santiago MD Attending physician on admission: Kb Franklin Discharging clinician: Elisabeth Ortez DS: Diagnosis Discharge Diagnosis (1) Psychosis: Status: Acute DS: Medications Discharge Medications Home Medications: Previous Rx's ?Medication ?Instructions ?Recorded calcium 250 mg (as 1 tab PO BIDWM Heartburn #30 tabs 03/12/25 carbonate)-vitamin D3 3.125 mcg (125 unit) tablet diazepam 2 mg tablet 4 mg (2 x 2 mg) PO BEDTIME severe 03/12/25 anxiety #30 tabs lithium carbonate 300 mg See Rx Instructions .Route 03/12/25 tablet,extended release .COMPLEX #90 tabs multivitamin (Daily-Lavern tablet) 1 tab PO DAILY supplement #30 tabs 03/12/25 prazosin 1 mg capsule 1 mg PO BEDTIME PTSD #30 caps 03/12/25 propranolol 10 mg tablet 10 mg PO TID anxiety #90 tabs 03/12/25 quetiapine 300 mg tablet 300 mg PO BEDTIME mood/psychosis 03/12/25 #30 tabs quetiapine 50 mg tablet 50 mg PO BID@0900,1500 Mood #60 03/12/25 tabs Mental Status Exam Mental Status Exam Narrative: Patient presents well-groomed, casually dressed. Affect is euthymic with full range. Speech is clear and coherent. Thought process is linear and logical. Thought content is appropriate and relevant. Patient denies suicidal or homicidal ideation intent or plan. No overt psychotic symptoms elicited. Insight is good. Judgment is good. Data Data Completed and Pending Completed studies during hospitalization [Text1]: 03/10/25 08:13 Hold Purple Top SEE NOTE Sodium 140 Potassium 3.9 Chloride 104 Carbon Dioxide 27 Anion Gap 13 BUN 16 Creatinine 0.69 Estim Creat Clear Calc 114.2 Estimated GFR > 60 Random Glucose 89 Calcium 9.2 Total Bilirubin 0.4 AST 35 H ALT 36 H Alkaline Phosphatase 59 Total Protein 7.1 Albumin 4.4 TSH 3.89 [place] 0.61 Imaging Diagnostic Imaging Impressions Hand X-Ray 01/16/25 11:30 IMPRESSION: Unremarkable right hand Electronically signed by: Casa Rush MD 01/16/2025 11:46 AM EDT RP Hand X-Ray 01/29/25 07:30 IMPRESSION: Unremarkable examination of the right hand. Electronically signed by: Obdulio Tolbert MD 01/30/2025 07:56 AM EDT RP DS: Summary Hospital Course Hospital Course: Plan Ms. Sheridan is a 34 year-old woman who presents with s/s of psychosis, disorganized, some degree of paranoia. She had similar episode back in 2020. 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 I do suspect that there may be underlying psychiatric disorder that is triggered by amphetamine use but not necessarily caused by it. Further evaluation to clarify dx is needed. We discussed inpt level of care. We also discussed restarting risperidone 1mg po BID. low dose clonazepam. continue clonidine. 1. IPLOC 2. start risperidone 1mg po BID. Clonazepam 0.5mg po BID. 01/05: Continue current regimen and plans. 01/06: slept only 2 hours, disorganized, decompensated behaviors. unable to interact cogently. refusing risperidone, will offer seroquel instead. possible bipolar diathesis, T/C mood stabilizer. delirium also a possibility, as the mental status change since admission appears to be striking. 01/07: took seroquel 200 last night, slept 5.5 hours. more organized, linear, able to engage today. continue current mgmt. 01/08: refused seroquel last NOC, slept only 30 minutes. agitated, bizarre, disorganized today. commitment paperwork filed. 01/09: refused meds yesterday but got IMs due to behaviors (outbursts, touching peers, yelling, banging doors, pushed her sitter, climbing on tables and chairs. threatening to stab self with pens). more linear and engageable today, once again the day after having takenm medication. agrees to continue to take seroquel 200 mg QHS. 01/10: took seroquel last NOC and slept 4 hours overnight, but bizarre today. less agitation and intrusiveness than yesterday, but still bizarre and fairly intrusive. pt appears willing to take risperidone, will DC seroquel and return to dosing of risperidone 2 mg BID. took first dose this afternoon. court next monday. 01/11 very paranoid, fearful, taking medications 01/12 continue tx. 01/13: appears a bit more organized today than when not taking medications, although slow and processing poorly. declines to sign CV. commitment hearing tomorrow. 01/14: hearing continued until 01/24 for SINDY. add klonopin 0.5 BID ODT, change risperidone formulation to liquid (pt has been inducing vomiting repeatedly with toothbrush). hold toothbrush unless actively brushing teeth. continues interactive to some extent with MD today, but has been grabbing badges, touching others, and tried to vault into the nursing station in the past 24H. 01/15: IM medication after threatening to punch staff weapons officer with intrusive and aggressive behaviors toward peers. pt did not take klonopin as ordered yesterday. DC klonopin and start VPA 500 BID. per staff, running. tried to make herself vomit after taking PRN. labile. ate her feces in the shower and tried to feed it to her 1:1. crawling under tables. tried to jump into nurses station x2. took her shirt off and swinging it around. did not sleep at all. slept at 7:30am. 01/16: refusing VPA, taking risperidone. napped after IMs yesterday. has been bizarre and labile since. slept only 2 hours overnight. continue current mgmt. 01/17: agitated, bizarre, and aggressive behaviors yesterday (punching and kicking beard, stripping off in milieu, attempting to intimidate staff, grabbing stress balls out of staff's hands). did take VPA this morning on its being offered a second time. more calm today. taking risperidone. 01/18: intermittently refusing VPA, seems to be taking risperidone. asks MD if he is alive, then proposes elbow bump. accusing staff of stealing her things (phone), calling mother and porcelain turner in the middle of the night. slept less than 4 hours. 01/19: more lucid today. concerned about risperidone weight gain. agrees to DC risperidone and try prolixin instead, starting at 2.5 BID. 01/20: very disorganized, bizarre, psychotic today. likely due to equivalent dosing of prolixin being given much lower than prior risperidone. as pt seems to be tolerating prolixin without issues, increase prolixin dosing from 2.5 BID to 5 BID. otherwise continue current mgmt. 01/21: less bizarre and disorganized, but still quite ill. variably compliant with medications. c/o leg pain, lowering self to floor; started cogentin 0.5 BID due to concern for dystonia. c/o nightmares, h/o prazosin with good effect. add prazosin 1 mg QHS as of [place]. 01/22: Patients states that she is good. She is scared of [place] herpes after having sex. She refused to participate in an interview with this provider, and walked away stating i don't need a provider. She was observed by this provider, pacing the [place]. Continue current treatment regimen. 01/23: disorganized and dangerous behaviors. voluntarily took IMs. court tomorrow. 01/24: remains disorganized. ran into staff member yesterday, postured and threatened other staff afterward. slept about 6.[address] afternoon. 01/25/25: Staff 5 6 hours with broken sleep. Compliant with medication with lots of encouragement from yesterday, refused her vitamins in the morning. CT scan was negative, she fell early in the morning, witness her head hit the wall the trying to put her pants on. Slightly improved in mood with medication compliant. VPA level is 52,1 low side. However patient not consistently take it every day. We will recheck. He is on section 8. Pending Wei's order. Less irritable, less racing. 01/26/25: Mostly compliant with medication, to 250/750 mg of Depakote scheduled at bedtime. Labile, restless, poor boundaries, sexually inappropriate behavior, mood is aggravated . Disorganized. Slightly improving but not much. She is better in terms of compliant with medications. 01/27: mostly compliant with meds. improved from last week, more organized and less labile today. agreement reached on medications, reinstate risperidone as primary antipsychotic Tx, remove request for mood stabilizers, remove ativan. DC prolixin, begin taper of VPA, restart risperidone 2 BID, add thorazine 100 and valium 10 at HS to encourage sleep. awaiting med order. 01/28: last evening was pushing, attempting to kick and bite staff, shoulder-checked peer, exposing genitalia to 1:1 staff. took meds last night and this morning. court order received today, reviewed, medications adjusted to comply with order. reportedly more linear today, but pt declined to meet with MD after brief psychotic interaction with MD. 01/29: dysregulated, agitated behaviors continue last night. calmer days. refused VPA this morning. continue VPA taper, decrease from 500 BID to 250 TID as of today. increase HS seroquel from 300 mg to 400 mg as of tonight and HS valium from 10 mg to 15 mg as of tonight for sleep and sylwia. 01/30: same pattern of calm days through mid-afternoon, then decompensation. add third scheduled dosing of risperidone in the middle of the day, schedule valium in the morning and at 3 pm, otherwise continue current mgmt. increase HS seroquel if pt does not sleep more than several hours tonight. continue VPA taper tomorrow. 01/31: calm, morning. severe akathisia eves, unable to sleep or remain still. slept only 2.5 hours. due to 4 mg risperidone daily being inadequate to treat Sx and 6 mg causing severe akathisia, will DC risperidone in favor of a less potent antipsychotic, seroquel. schedule seroquel 100/100/500. taper VPA to 250 BID as of tomorrow. propranolol 20 TID started last night for akathisia, will continue for now. 02/01: no change - monitor akathisia decrease on new regimen 02/02: nicotine patch taper to 7 mg; seems to be doing better with switch to Seroquel and augmentation with Propranolol; primary team may f/u with further discussion of behavioral plan 02/03: much improved from last week. calm, linear, logical, topical. slept 6 hours each the last 3 nights. c/o sedation. decrease daytime valium from 5 BID to 2 BID. decrease daytime seroquel from 100 BID to 75 BID. taper VPA from 250 BID to 250 QHS. 02/04: remains much improved. no overt MSE abnormalities. c/o sedation, decrease seroquel from 75 BID to 50 BID and from 500 QHS to 400 QHS. DC VPA entirely. otherwise continue current mgmt. 02/05: backsliding today. irritable, erratic, more disorganized, labile. stating her intent to stop taking medications, demanding discharge. continue current mgmt. 02/06: much improved today. calm, logical, cogent and topical. pt would like to taper off of valium (addicting) and onto a proper mood stabilizer. nurse paralegal notified. MO daytime valium. restart prazosin due to c/o nightmares. decrease propranolol from 20 TID to 10 TID (should no longer be necessary as off of medications likely to cause akathisia). DC daytime seroquel tomorrow. 02/07: similar conversation to yesterday. DC daytime seroquel. awaiting word from legal re adding lithium. otherwise continue current mgmt. 02/08: keeping to self. irritable edge. pt reports feeling overwhelmed d/t room change. medication compliant. focused on returning home. denies SI/HI/VH/AH. per nursing, slept 6 hours last night. continue current tx plan. 02/09: irritable edge. medication compliant. focused on returning home. intrusive during a peer's treatment; declined to walk away when asked by staff multiple times; poor insight and judgment. pt became upset after meeting with her mother; pt stated, my mom says its my behavior why I'm still here. I think they are keeping me here because I locked myself in that room . Valium decreased to 10mg PO bedtime. 02/10: irritable. medication compliant. Perseverative on discharge. Patient reports sleeping well last night. Appears calmer today. She reports visit with her mother when well. Denies SI/HI/VH/AH. Attending groups. Continue current treatment plan. 02/11/25: Irritable, irrational regarding why she is still being here. Poor insight and poor judgment. Not thinks she has bipolar. She only believes she has has ADHD and autism, therefore she does not need to be here and that no reason to keep her here longer. As a future, she does not think she going to continue taking medication after discharge per nursing. Racing thoughts. At times she is calm, able to attend groups, and some what appropriate. Have good visit with brother and mom yesterday. Not able to discuss for medication change due to agitated/irritable mood. 02/12/25: Been sleeping well, no issue with appetite, attended groups, have visit with mom. Both mom and patient the nurse believe that patient is not manic or having any bipolar features. They only believe that she has ADHD and autism. Mom advocate for patient to be discharged. Mom claims that the treatment team has not ever reach out to her. Both of the agree to have a family meeting in the future. We will leave message to the team to set it up. Patient has some mood swing, but overall, continued to improve with help of the medication. She wants to be off from Valium, but do not want any other medication change. Both Seroquel and Valium is on [facility] order. No other safety concerns. 02/13/25: Slept well, compliant with medications, refused nicotine patch on. Observed visible and attending groups, irritable at times, hyper focused on discharge as her normal baseline of everyday. Do not want any medication change. Reports gaining 28 lb since she got here. Nutrition consult placed. We will add Adderall on allergy list which make her psychotic. Patient to nursing put it in her allergy list. Some labile mood, pressured speech. 02/14: continue current tx plan. 02/15/25: Slept well, manage meal intake, portion size, healthier snacks to control her weight gain. Met with the dietitian today. She also ask staff to pronounce the list of healthy/happy food. Family brought in some healthy snack for her. She was mad being wakened up to get vital signs in the morning by nursing staff. Denies suicidal thoughts, denies hallucinations. She asked questions regarding diagnosis. Educate her regarding psychosis that she came with. Explained with her regarding medication she has been taking here, she will be discharged with, and then work with the outpatient psychiatrist to continue with [facility] orders, making any change if necessary. She is more receptive with the plan, more rationale when she is not in the bad mood. She appreciates the time I spent talking to her today. She attended groups, visible. No ADLs issues. Can be irritable at times. Refused her propranolol in the morning. She took multivitamins later on of the day after she refused. Change nicotine patch to p.r.n.. 02/16/25: Reported that she was angry, other than that she feels mood more stable today. Nursing staff contacted this provider reported that patient in the past was allowed using the head phone at night to cancel out the noise. Patient asked if she was allowed to use it again. Patient focused on healthy food, eating yogurt only in the morning. Family brought in more seeds instead of eating unhealthy food from hospital. She also was irritable as someone touching her clothes in the washer. She has a couple visits today. She feels ready to leave and stable enough to go home to community. She is looking forward to talk to her attending this week regarding discharge. Denies other safety concerns. She has been irritable at times, but able to control her anger. She said this is her baseline, and being in here is make her more irritable. Had phones use overnight order was discontinued per policy. 02/17: calm, logical, cooperative. appearing overly controlled, unnatural in doing so. medications plan at our last meeting resurrected - start lithium, taper seroquel and valium. pt states she is open to mood stabilizers. MD informs pt he believes she lacks capacity presently and will notify steam box operator to communicate with pt's steam box operator. hospital steam box operator notified. continue current mgmt for now. 02/18: corresponding with steam box operator re stipulated agreement. pt intrusive with peers and resistant to redirection by staff. with MD pt is calm and cooperative, but attempting to engage in argument justifying her intrusive behavior. continue current mgmt. slept well. 02/19/25: showered in the morning, reasonable, , slept for 6 hours I was up for snack , compliant with meds except Propranonol at 1500 yesterday. She asked if she can use electric razor to trim the pubic hair which was not allowed per safety and unit policy. Continue working healthy diet and snack. 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 No major behavior issues. Sometimes ask for stuff she knows they are not allowed. Continue with the plan. 02/20: refused seroquel last night, did not receive IM back-up. appears with bizarre smile today, believes she doesn't need medications and is ready to discharge. 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 plan for lithium in lieu of valium and seroquel, ideally, reviewed. pt appears to have very poor retention, as this plan has been discussed numerous times. pt was encouraged to discuss with her steam box operator and was given her steam box operator's contact information ([facility] number). 02/21: talking about not taking meds once discharged. refusing meds then taking them last second prior to IM administration. labile, irritable. very disorganized today, severely impaired cognitive performance. restart valium 5 and seroquel 75 BID at 0900, 1500. otherwise continue current mgmt. awaiting word from extruder operator re stipulated agreement for mood stabilizers. 02/22: Continue current regimen and plans. Orajel ordered. 02/23: Continue current plans and regimen 02/24: more organized and less oppositional, labile, intrusive, impulsive than monday. willing to take lithium. per steam box operator, we may have a stipulated agreement. continue current mgmt for now, hoping to start lithium GIRISH. 02/25/25: Amend the treatment plan to include mood stabilizer [place] Carbonate as primary treatment at therapeutic blood levels. Organized at times but when she is more anxious, less rationale. She does not accept new add on [place] on Wei's order that is effective today it is fake, you can keep it. I need to talk to my porcelain turner . why I need [place]?I do not have bipolar . She believes she has autism and ADHD only. She asked inappropriate question such as if this provider knowing what JERSON and if this provider used it before. Patient asked to get her OP therapist to involve in decision making on meds. Prior to this conversation, she was calm, showing pictures of herself and family members that she has personal space for them on the wall. Some labile mood, underline irritable but no angry outburst. At some point, she states that Seroquel added on during daytime is helping with her mood and that I was not mad when she was waken up this morning. Denies SI/SIB/HI/AVH [place] ER 600mg daily at HS for mood. With some labs ordered for lolita CMP, TSH, Free T4. 02/26/25 Slept for 8 hours, compliant with medications except lithium. Rumination, poor insight and judgment, asking inappropriate questions, thought processes not on treatment, racing, anxious, appears to be paranoid. The RN showed the new amended Wei order, she does not believe it is true and wanted fire her steam box operator. HRO notified, met with patient. Continued to she is not bipolar, believes she has PTSD symptoms that causing her mood changes. Want this to talk to her outpatient therapist. We will arrange to make phone call for collateral. Change [place] ER from 600mg at HS to BID with IM of 5mg Valium IM back up if refuse. 02/27/25: Slept for 8 hours, compliant with medications, except for lithium-received Valium IM backup. Continued to resist to mood stabilizer, poor judgment, poor insight, do not believe she has bipolar. Nursing staff reports she was rude, inappropriate with staff, asking inappropriate questions. Racing thoughts. Request information regarding lithium. Nursing staff pronounced the handout, she has not in hand. Side effects noted. We will contact Josy BLACKBURN therapist at [phone] per patient request as she believes that her therapist should be involved in the decision making regarding diagnosis. 02/28/25: Continued to improve in sleep. Medication compliant, except for lithium yesterday morning. She took the evening dose per nursing report. Nurse's also provide patient with information related to lithium. Patient request the current Muniz order. Given a copy. She finally wants to keep it as she has been referred to review. She requests take her off from Seroquel if this provider wants her to text lithium which is unreasonable as she requests to take her off of them. Not able to rationale with her about the medication plan. Slightly having some open and accepting lithium. At home she will compliant do well with the lithium. In the future when she got into therapeutic level targeting labile mood, we can taper down on Seroquel or taper down on Valium. At this current time, due to current mental status, she can not process the information, not register in her mind for medication plans at this time. She does not trust the provider, she does not believe she has bipolar which is hard to convince her to take lithium. Labile mood, irritable and can be rude. Monitor over weakens for [place] and other medication compliant. IM back up available per Flavio' order. Attempted to call Josy Rich at [phone]. Left voices message with administrative assistant front desk. Waiting for a call back. 03/01: calm, cooperative, logical. still processing difficulties, but improved from last time we met. taking lithium for 2 days now, slept 8 hours overnight. decrease seroquel 75/75/400 to 50/50/300 and valium 5 BID to 4 BID. otherwise continue current mgmt. 03/02: declined interview for phone call. per staff, taking meds, accusing staff of trying to change her personality. 03/03/25: Patient slept for 7 hours, compliant with medication p.o Included lithium. Some labile mood, irritable, making accusation regarding what provider told her during assessment. She reported that she has has been calling outpatient therapist repeatedly but has not received a call back. Patient was informed that this provider also called, waiting for a call back as well. She asked why can not she take medication like this with the outpatient provider. Explained to her that she needs to be more stable before we discharge her, as now per her perception, she may feel that she is ready to go home, but other people in the treatment team do not think she is ready yet. Per nursing patient was better over the weekends, less provocative. Think we are changing her personality. We will check the lithium level on Monday morning. Been taking consistently the past 3 and half days. 03/04/25: Patient slept well, compliant with medication. Continue calling outpatient therapist herself. She has not hearing back from them. She reported that she wants to go home, therefore she will do whatever she needs to do to get home. 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 Explained to her that we will get the level tomorrow, level coming back subtherapeutic, we will increase dose of the lithium. In the meantime, we will consider to lower Seroquel down, mood is more stable. She is less labile today, attended to some groups. No safety concern. Constricted affect. Less irritable. [place] level for tomorrow morning. 03/05/25: Patient slept for 8 hours, was medication compliant. No IM backup need to be used. She has questions related to what she have to do and what is next step to get discharge. Explained the plan that we are waiting for the lithium level. If it is sub therapeutic, we will titrate until we get the therapeutic level. When she is more stable, we will plan to discharge her to outpatient provider in which she can continue taking medications. She appeared to be less labile, reasonable, more logical, able to take in information. No angry outbursts, attend his groups except when she has visiors. Continue working on healthy snack and diet. [place] level is 0.29; subtherapeutic. Increase [place] up to 900mg daily in divided dose. Recheck in 5 days 03/06/25: Patient slept for 7 hours, was medication compliant. Denies side effects. She is aware of the lithium change yesterday, and asked what the plan from now on. She agrees with the plan of lithium level in the next 5 days, and can be having some other medication adjusted. However she said she wants to leave everything the same like it is now when I was talking to her regarding benzo taper down. We will leave the same dose of benzo and Seroquel. We will revisit to see if the patient have thoughts of wanting to taper down on benzo as she is more stable. I will leave it there the way it is now so that she can have some control over her treatment. Reports to nursing that she feel a bit anxious and depressed. No argumentative, much less labile, more red rational and logical. Pacing the walden to get steps in. Intermittently attended groups, no behavior issues. Most likely to be discharged late next week. 03/07/25: Continued to improve in mood, sleep and energy, compliant with medications, no side effects. She is more logical, more focused on treatment, continue working on healthy diet, walking the walden to get some exercise done, no labile mood. She agree with the medication change but asked them do much of change to make her not stable and not able to go home. No argumentative, very reasonable. Denies anxiety and depression, denies safety concerns Reduce Valium 10 mg at bedtime down to 5 mg. [place] level, TSH, CMP on 03/10/25. 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 [place] level 03/10/202503/09: eager to clarify she would like to maintain current therapist and that agency and have a change of prescriber within the same agency (attributes med changes pre admission as reason for decompensation etc..) and ok seeing different prescriber remotely if needed as long as they can maintain their current therapist 03/10/25: Continue with current plan, Continue to slowly tirtrate down on BZD. Patient agreed with the plan. Want Doctor note prior to discharge so she can be back to work.She will work on changing sleep pattern to appropriate to the job which is worrying me. Hope this is not affect her current mental health as she is pretty stable. SW continues working on aftercare appointments. She usually work at 5PM to 3 AM five days a week but will slowly back to work. Reduce Valium 4mg BID to 4 daily. Discontinue 1-1 monitor 30 min after meds. [place] level 0.61 therapeutic level. 03/11/25: Patient slept well, no issue with appetite, observed attended groups, social appropriate with peers and staff, was medication compliant, denies side effects. She did well on benzo taper denies safety concerns. Continued to improve in mood and sleep. Logical, thought processes on treatment. Verbally saying that she will continue taking medication upon discharge. She sending home with family's some belongings as to be pair being discharge this . Discontinue morning Valium tomorrow morning. Psych appointment set up by clinical social work therapist. Pending therapist appointment 03/12/25: Continue improve in mood and sleep, compliant with medications. No behavior issues. She is accepting aftercare plan. Review FLU appointments. Accepting medication sending home to prefer pharmacy. Discussed with patient potential decrease/reduce benzo at bedtime with outpatient providers. Denies safety concerns. She is logical, visible, attending groups, calm and pleasant. ,Per social work therapist got back to her, accept the patient back. Review appointments with patient. Review with medication we will send home with. We will discontinue all Wei's p.r.n. backup order. Plan Ms. Sheridan is a 34 year-old woman who presents with s/s of psychosis, disorganized, some degree of paranoia. She had similar episode back in 2020. 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 I do suspect that there may be underlying psychiatric disorder that is triggered by amphetamine use but not necessarily caused by it. Further evaluation to clarify dx is needed. We discussed inpt level of care. We also discussed restarting risperidone 1mg po BID. low dose clonazepam. continue clonidine. 1. IPLOC 2. start risperidone 1mg po BID. Clonazepam 0.5mg po BID. 01/05: Continue current regimen and plans. 01/06: slept only 2 hours, disorganized, decompensated behaviors. unable to interact cogently. refusing risperidone, will offer seroquel instead. possible bipolar diathesis, T/C mood stabilizer. delirium also a possibility, as the mental status change since admission appears to be striking. 01/07: took seroquel 200 last night, slept 5.5 hours. more organized, linear, able to engage today. continue current mgmt. 01/08: refused seroquel last NOC, slept only 30 minutes. agitated, bizarre, disorganized today. commitment paperwork filed. 01/09: refused meds yesterday but got IMs due to behaviors (outbursts, touching peers, yelling, banging doors, pushed her sitter, climbing on tables and chairs. threatening to stab self with pens). more linear and engageable today, once again the day after having takenm medication. agrees to continue to take seroquel 200 mg QHS. 01/10: took seroquel last NOC and slept 4 hours overnight, but bizarre today. less agitation and intrusiveness than yesterday, but still bizarre and fairly intrusive. pt appears willing to take risperidone, will DC seroquel and return to dosing of risperidone 2 mg BID. took first dose this afternoon. court next monday. 01/11 very paranoid, fearful, taking medications 01/12 continue tx. 01/13: appears a bit more organized today than when not taking medications, although slow and processing poorly. declines to sign CV. commitment hearing tomorrow. 01/14: hearing continued until 01/24 for SINDY. add klonopin 0.5 BID ODT, change risperidone formulation to liquid (pt has been inducing vomiting repeatedly with toothbrush). hold toothbrush unless actively brushing teeth. continues interactive to some extent with MD today, but has been grabbing badges, touching others, and tried to vault into the nursing station in the past 24H. 01/15: IM medication after threatening to punch staff weapons officer with intrusive and aggressive behaviors toward peers. pt did not take klonopin as ordered yesterday. DC klonopin and start VPA 500 BID. per staff, running. tried to make herself vomit after taking PRN. labile. ate her feces in the shower and tried to feed it to her 1:1. crawling under tables. tried to jump into nurses station x2. took her shirt off and swinging it around. did not sleep at all. slept at 7:30am. 01/16: refusing VPA, taking risperidone. napped after IMs yesterday. has been bizarre and labile since. slept only 2 hours overnight. continue current mgmt. 01/17: agitated, bizarre, and aggressive behaviors yesterday (punching and kicking beard, stripping off in milieu, attempting to intimidate staff, grabbing stress balls out of staff's hands). did take VPA this morning on its being offered a second time. more calm today. taking risperidone. 01/18: intermittently refusing VPA, seems to be taking risperidone. asks MD if he is alive, then proposes elbow bump. accusing staff of stealing her things (phone), calling mother and porcelain turner in the middle of the night. slept less than 4 hours. 01/19: more lucid today. concerned about risperidone weight gain. agrees to DC risperidone and try prolixin instead, starting at 2.5 BID. 01/20: very disorganized, bizarre, psychotic today. likely due to equivalent dosing of prolixin being given much lower than prior risperidone. as pt seems to be tolerating prolixin without issues, increase prolixin dosing from 2.5 BID to 5 BID. otherwise continue current mgmt. 01/21: less bizarre and disorganized, but still quite ill. variably compliant with medications. c/o leg pain, lowering self to floor; started cogentin 0.5 BID due to concern for dystonia. c/o nightmares, h/o prazosin with good effect. add prazosin 1 mg QHS as of tonight. 01/22: Patients states that she is good. She is scared of [place] herpes after having sex. She refused to participate in an interview with this provider, and walked away stating i don't need a provider. She was observed by this provider, pacing the walden. Continue current treatment regimen. 01/23: disorganized and dangerous behaviors. voluntarily took IMs. court tomorrow. 01/24: remains disorganized. ran into staff member yesterday, postured and threatened other staff afterward. slept about 6.[address] afternoon. 01/25/25: Staff 5 6 hours with broken sleep. Compliant with medication with lots of encouragement from yesterday, refused her vitamins in the morning. CT scan was negative, she fell early in the morning, witness her head hit the wall the trying to put her pants on. Slightly improved in mood with medication compliant. VPA level is 52,1 low side. However patient not consistently take it every day. We will recheck. He is on section 8. Pending Wei's order. Less irritable, less racing. 01/26/25: Mostly compliant with medication, to 250/750 mg of Depakote scheduled at bedtime. Labile, restless, poor boundaries, sexually inappropriate behavior, mood is aggravated . Disorganized. Slightly improving but not much. She is better in terms of compliant with medications. 01/27: mostly compliant with meds. improved from last week, more organized and less labile today. agreement reached on medications, reinstate risperidone as primary antipsychotic Tx, remove request for mood stabilizers, remove ativan. DC prolixin, begin taper of VPA, restart risperidone 2 BID, add thorazine 100 and valium 10 at HS to encourage sleep. awaiting med order. 01/28: last evening was pushing, attempting to kick and bite staff, shoulder-checked peer, exposing genitalia to 1:1 staff. took meds last night and this morning. court order received today, reviewed, medications adjusted to comply with order. reportedly more linear today, but pt declined to meet with MD after brief psychotic interaction with MD. 01/29: dysregulated, agitated behaviors continue last night. calmer days. refused VPA this morning. continue VPA taper, decrease from 500 BID to 250 TID as of today. increase HS seroquel from 300 mg to 400 mg as of tonight and HS valium from 10 mg to 15 mg as of tonight for sleep and sylwia. 01/30: same pattern of calm days through mid-afternoon, then decompensation. add third scheduled dosing of risperidone in the middle of the day, schedule valium in the morning and at 3 pm, otherwise continue current mgmt. increase HS seroquel if pt does not sleep more than several hours tonight. continue VPA taper tomorrow. 01/31: calm, morning. severe akathisia eves, unable to sleep or remain still. slept only 2.5 hours. due to 4 mg risperidone daily being inadequate to treat Sx and 6 mg causing severe akathisia, will DC risperidone in favor of a less potent antipsychotic, seroquel. schedule seroquel 100/100/500. taper VPA to 250 BID as of tomorrow. propranolol 20 TID started last night for akathisia, will continue for now. 02/01: no change - monitor akathisia decrease on new regimen 02/02: nicotine patch taper to 7 mg; seems to be doing better with switch to Seroquel and augmentation with Propranolol; primary team may f/u with further discussion of behavioral plan 02/03: much improved from last week. calm, linear, logical, topical. slept 6 hours each the last 3 nights. c/o sedation. decrease daytime valium from 5 BID to 2 BID. decrease daytime seroquel from 100 BID to 75 BID. taper VPA from 250 BID to 250 QHS. 02/04: remains much improved. no overt MSE abnormalities. c/o sedation, decrease seroquel from 75 BID to 50 BID and from 500 QHS to 400 QHS. DC VPA entirely. otherwise continue current mgmt. 02/05: backsliding today. irritable, erratic, more disorganized, labile. stating her intent to stop taking medications, demanding discharge. continue current mgmt. 02/06: much improved today. calm, logical, cogent and topical. pt would like to taper off of valium (addicting) and onto a proper mood stabilizer. nurse paralegal notified. DC daytime valium. restart prazosin due to c/o nightmares. decrease propranolol from 20 TID to 10 TID (should no longer be necessary as off of medications likely to cause akathisia). DC daytime seroquel tomorrow. 02/07: similar conversation to yesterday. DC daytime seroquel. awaiting word from legal re adding lithium. otherwise continue current mgmt. 02/08: keeping to self. irritable edge. pt reports feeling overwhelmed d/t room change. medication compliant. focused on returning home. denies SI/HI/VH/AH. per nursing, slept 6 hours last night. continue current tx plan. 02/09: irritable edge. medication compliant. focused on returning home. intrusive during a peer's treatment; declined to walk away when asked by staff multiple times; poor insight and judgment. pt became upset after meeting with her mother; pt stated, my mom says its my behavior why I'm still here. I think they are keeping me here because I locked myself in that room . Valium decreased to 10mg PO bedtime. 02/10: irritable. medication compliant. Perseverative on discharge. Patient reports sleeping well last night. Appears calmer today. She reports visit with her mother when well. Denies SI/HI/VH/AH. Attending groups. Continue current treatment plan. 02/11/25: Irritable, irrational regarding why she is still being here. Poor insight and poor judgment. Not thinks she has bipolar. She only believes she has has ADHD and autism, therefore she does not need to be here and that no reason to keep her here longer. As a future, she does not think she going to continue taking medication after discharge per nursing. Racing thoughts. At times she is calm, able to attend groups, and some what appropriate. Have good visit with brother and mom yesterday. Not able to discuss for medication change due to agitated/irritable mood. 02/12/25: Been sleeping well, no issue with appetite, attended groups, have visit with mom. Both mom and patient the nurse believe that patient is not manic or having any bipolar features. They only believe that she has ADHD and autism. Mom advocate for patient to be discharged. Mom claims that the treatment team has not ever reach out to her. Both of the agree to have a family meeting in the future. We will leave message to the team to set it up. Patient has some mood swing, but overall, continued to improve with help of the medication. She wants to be off from Valium, but do not want any other medication change. Both Seroquel and Valium is on [facility] order. No other safety concerns. 02/13/25: Slept well, compliant with medications, refused nicotine patch on. Observed visible and attending groups, irritable at times, hyper focused on discharge as her normal baseline of everyday. Do not want any medication change. Reports gaining 28 lb since she got here. Nutrition consult placed. We will add Adderall on allergy list which make her psychotic. Patient to nursing put it in her allergy list. Some labile mood, pressured speech. 02/14: continue current tx plan. 02/15/25: Slept well, manage meal intake, portion size, healthier snacks to control her weight gain. Met with the dietitian today. She also ask staff to pronounce the list of healthy/happy food. Family brought in some healthy snack for her. She was mad being wakened up to get vital signs in the morning by nursing staff. Denies suicidal thoughts, denies hallucinations. She asked questions regarding diagnosis. Educate her regarding psychosis that she came with. Explained with her regarding medication she has been taking here, she will be discharged with, and then work with the outpatient psychiatrist to continue with [facility]iz orders, making any change if necessary. She is more receptive with the plan, more rationale when she is not in the bad mood. She appreciates the time I spent talking to her today. She attended groups, visible. No ADLs issues. Can be irritable at times. Refused her propranolol in the morning. She took multivitamins later on of the day after she refused. Change nicotine patch to p.r.n.. 02/16/25: Reported that she was angry, other than that she feels mood more stable today. Nursing staff contacted this provider reported that patient in the past was allowed using the head phone at night to cancel out the noise. Patient asked if she was allowed to use it again. Patient focused on healthy food, eating yogurt only in the morning. Family brought in more seeds instead of eating unhealthy food from hospital. She also was irritable as someone touching her clothes in the washer. She has a couple visits today. She feels ready to leave and stable enough to go home to community. She is looking forward to talk to her attending this week regarding discharge. Denies other safety concerns. She has been irritable at times, but able to control her anger. She said this is her baseline, and being in here is make her more irritable. Had phones use overnight order was discontinued per policy. 02/17: calm, logical, cooperative. appearing overly controlled, unnatural in doing so. medications plan at our last meeting resurrected - start lithium, taper seroquel and valium. pt states she is open to mood stabilizers. informs pt he believes she lacks capacity presently and will notify steam box operator to communicate with pt's steam box operator. hospital steam box operator notified. continue current mgmt for now. 02/18: corresponding with steam box operator re stipulated agreement. pt intrusive with peers and resistant to redirection by staff. with MD pt is calm and cooperative, but attempting to engage in argument justifying her intrusive behavior. continue current mgmt. slept well. 02/19/25: showered in the morning, reasonable, , slept for 6 hours I was up for snack , compliant with meds except Propranonol at 1500 yesterday. She asked if she can use electric razor to trim the pubic hair which was not allowed per safety and unit policy. Continue working healthy diet and snack. 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 No major behavior issues. Sometimes ask for stuff she knows they are not allowed. Continue with the plan. 02/20: refused seroquel last night, did not receive IM back-up. appears with bizarre smile today, believes she doesn't need medications and is ready to discharge. 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 plan for lithium in lieu of valium and seroquel, ideally, reviewed. pt appears to have very poor retention, as this plan has been discussed numerous times. pt was encouraged to discuss with her steam box operator and was given her steam box operator's contact information ([facility] number). 02/21: talking about not taking meds once discharged. refusing meds then taking them last second prior to IM administration. labile, irritable. very disorganized today, severely impaired cognitive performance. restart valium 5 and seroquel 75 BID at 0900, 1500. otherwise continue current mgmt. awaiting word from extruder operator re stipulated agreement for mood stabilizers. 02/22: Continue current regimen and plans. Orajel ordered. 02/23: Continue current plans and regimen 02/24: more organized and less oppositional, labile, intrusive, impulsive than monday. willing to take lithium. per steam box operator, we may have a stipulated agreement. continue current mgmt for now, hoping to start lithium GIRISH. 02/25/25: Amend the treatment plan to include mood stabilizer [place] Carbonate as primary treatment at therapeutic blood levels. Organized at times but when she is more anxious, less rationale. She does not accept new add on [place] on Wei's order that is effective today it is fake, you can keep it. I need to talk to my porcelain turner . why I need [place]?I do not have bipolar . She believes she has autism and ADHD only. She asked inappropriate question such as if this provider knowing what JERSON and if this provider used it before. Patient asked to get her OP therapist to involve in decision making on meds. Prior to this conversation, she was calm, showing pictures of herself and family members that she has personal space for them on the wall. Some labile mood, underline irritable but no angry outburst. At some point, she states that Seroquel added on during daytime is helping with her mood and that I was not mad when she was waken up this morning. Denies SI/SIB/HI/AVH [place] ER 600mg daily at HS for mood. With some labs ordered for lolita CMP, TSH, Free T4. 02/26/25 Slept for 8 hours, compliant with medications except lithium. Rumination, poor insight and judgment, asking inappropriate questions, thought processes not on treatment, racing, anxious, appears to be paranoid. The RN showed the new amended Wei order, she does not believe it is true and wanted fire her steam box operator. HRO notified, met with patient. Continued to she is not bipolar, believes she has PTSD symptoms that causing her mood changes. Want this to talk to her outpatient therapist. We will arrange to make phone call for collateral. Change [place] ER from 600mg at HS to BID with IM of 5mg Valium IM back up if refuse. 02/27/25: Slept for 8 hours, compliant with medications, except for lithium-received Valium IM backup. Continued to resist to mood stabilizer, poor judgment, poor insight, do not believe she has bipolar. Nursing staff reports she was rude, inappropriate with staff, asking inappropriate questions. Racing thoughts. Request information regarding lithium. Nursing staff pronounced the handout, she has not in hand. Side effects noted. We will contact Josy Franklin- OP therapist at [phone] per patient request as she believes that her therapist should be involved in the decision making regarding diagnosis. 02/28/25: Continued to improve in sleep. Medication compliant, except for lithium yesterday morning. She took the evening dose per nursing report. Nurse's also provide patient with information related to lithium. Patient request the current Muniz order. Given a copy. She finally wants to keep it as she has been referred to review. She requests take her off from Seroquel if this provider wants her to text lithium which is unreasonable as she requests to take her off of them. Not able to rationale with her about the medication plan. Slightly having some open and accepting lithium. At home she will compliant do well with the lithium. In the future when she got into therapeutic level targeting labile mood, we can taper down on Seroquel or taper down on Valium. At this current time, due to current mental status, she can not process the information, not register in her mind for medication plans at this time. She does not trust the provider, she does not believe she has bipolar which is hard to convince her to take lithium. Labile mood, irritable and can be rude. Monitor over weakens for [place] and other medication compliant. IM back up available per Flavio' order. Attempted to call Josy BLACKBURN therapist at [phone]. Left voices message with administrative assistant front desk. Waiting for a call back. 03/01: calm, cooperative, logical. still processing difficulties, but improved from last time we met. taking lithium for 2 days now, slept 8 hours overnight. decrease seroquel 75/75/400 to 50/50/300 and valium 5 BID to 4 BID. otherwise continue current mgmt. 03/02: declined interview for phone call. per staff, taking meds, accusing staff of trying to change her personality. 03/03/25: Patient slept for 7 hours, compliant with medication p.o Included lithium. Some labile mood, irritable, making accusation regarding what provider told her during assessment. She reported that she has has been calling outpatient therapist repeatedly but has not received a call back. Patient was informed that this provider also called, waiting for a call back as well. She asked why can not she take medication like this with the outpatient provider. Explained to her that she needs to be more stable before we discharge her, as now per her perception, she may feel that she is ready to go home, but other people in the treatment team do not think she is ready yet. Per nursing patient was better over the weekends, less provocative. Think we are changing her personality. We will check the lithium level on Monday morning. Been taking consistently the past 3 and half days. 03/04/25: Patient slept well, compliant with medication. Continue calling outpatient therapist herself. She has not hearing back from them. She reported that she wants to go home, therefore she will do whatever she needs to do to get home. 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 Explained to her that we will get the level tomorrow, level coming back subtherapeutic, we will increase dose of the lithium. In the meantime, we will consider to lower Seroquel down, mood is more stable. She is less labile today, attended to some groups. No safety concern. Constricted affect. Less irritable. [place] level for tomorrow morning. 03/05/25: Patient slept for 8 hours, was medication compliant. No IM backup need to be used. She has questions related to what she have to do and what is next step to get discharge. Explained the plan that we are waiting for the lithium level. If it is sub therapeutic, we will titrate until we get the therapeutic level. When she is more stable, we will plan to discharge her to outpatient provider in which she can continue taking medications. She appeared to be less labile, reasonable, more logical, able to take in information. No angry outbursts, attend his groups except when she has visiors. Continue working on healthy snack and diet. [place] level is 0.29; subtherapeutic. Increase [place] up to 900mg daily in divided dose. Recheck in 5 days 03/06/25: Patient slept for 7 hours, was medication compliant. Denies side effects. She is aware of the lithium change yesterday, and asked what the plan from now on. She agrees with the plan of lithium level in the next 5 days, and can be having some other medication adjusted. However she said she wants to leave everything the same like it is now when I was talking to her regarding benzo taper down. We will leave the same dose of benzo and Seroquel. We will revisit to see if the patient have thoughts of wanting to taper down on benzo as she is more stable. I will leave it there the way it is now so that she can have some control over her treatment. Reports to nursing that she feel a bit anxious and depressed. No argumentative, much less labile, more red rational and logical. Pacing the [place] to get steps in. Intermittently attended groups, no behavior issues. Most likely to be discharged late next week. 03/07/25: Continued to improve in mood, sleep and energy, compliant with medications, no side effects. She is more logical, more focused on treatment, continue working on healthy diet, walking the [place] to get some exercise done, no labile mood. She agree with the medication change but asked them do much of change to make her not stable and not able to go home. No argumentative, very reasonable. Denies anxiety and depression, denies safety concerns Reduce Valium 10 mg at bedtime down to 5 mg. [place] level, TSH, CMP on 03/10/25. 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 [place] level 03/10/202503/09: eager to clarify she would like to maintain current therapist and that agency and have a change of prescriber within the same agency (attributes med changes pre admission as reason for decompensation etc..) and ok seeing different prescriber remotely if needed as long as they can maintain their current therapist 03/10/25: Continue with current plan, Continue to slowly tirtrate down on BZD. Patient agreed with the plan. Want Doctor note prior to discharge so she can be back to work.She will work on changing sleep pattern to appropriate to the job which is worrying me. Hope this is not affect her current mental health as she is pretty stable. SW continues working on aftercare appointments. She usually work at 5PM to 3 AM five days a week but will slowly back to work. Reduce Valium 4mg BID to 4 daily. Discontinue 1-1 monitor 30 min after meds. [place] level 0.61 therapeutic level. 03/11/25: Patient slept well, no issue with appetite, observed attended groups, social appropriate with peers and staff, was medication compliant, denies side effects. She did well on benzo taper denies safety concerns. Continued to improve in mood and sleep. Logical, thought processes on treatment. Verbally saying that she will continue taking medication upon discharge. She sending home with family's some belongings as to be pair being discharge this . Discontinue morning Valium tomorrow morning. Psych appointment set up by clinical social work therapist. Pending therapist appointment 03/12/25: Continue improve in mood and sleep, compliant with medications. No behavior issues. She is accepting aftercare plan. Review FLU appointments. Accepting medication sending home to prefer pharmacy. Discussed with patient potential decrease/reduce benzo at bedtime with outpatient providers. Denies safety concerns. She is logical, visible, attending groups, calm and pleasant. ,Per social work therapist got back to her, accept the patient back. Review appointments with patient. Review with medication we will send home with. We will discontinue all Wei's p.r.n. backup order. Boyfriend and sister will pick her up tomorrow by 10:30. He she was stay with the boyfriend after discharge. 03/13/25: Patient accepted aftercare FLU appoinments, verbally states that she will take medication after discharge. Will FLU with OP provider if needed to change on Valium. Meds sent out for 30 -day supply. Calm, pleasant, and cooperative. Feel safe returning home with good family support. Patient has been taken care by multi provider throughout the course of treatment, she gets back to her baseline. Plan to back to work soon. Doctor note given prior to discharge, Time spent discussing smoking cessation with patient: 3 to 10 minutes Status at Discharge Cognitive/behavioral status at discharge: CONDITION ON DISCHARGE: CURRENT STATUS IT RELATES TO ADMISSION CRITERIA: Stable, improved. Improvements in depression, anxiety, and suicidal ideation. Improvements in sleep, energy, and appetite. and no hallucination or paranoia/delusional thought. Functional status at discharge: independent ambulation Overall status at discharge: patient is back to baseline Time Spent with Patient Time attestation: Total time managing care of this patient today ____ minutes. Time spent: Greater than 30 minutes Discharge Plan Discharge Anticipated Discharge Date/Time: 03/13/25 10:30 Patient Disposition: Home, Self-Care Discharge Diagnosis: PTSD, ADHD, psychosis Referrals: Psych Prescriber: Adriana Gallegos ([facility]) [Other] - 03/20/25 9:00 am Referral Note: Telehealth Therapist: Josy Franklin ([facility]) [Other] - 03/17/25 1:00 pm Referral Note: Telehealth Mercy Santiago MD [Primary Care Provider, Internal Medicine] Discharge Medications: New prazosin 1 mg Capsule 1 mg PO BEDTIME Qty: 30 0RF Protocol: Hold for SBP< HOLD for SBP < : 90 propranolol 10 mg Tablet 10 mg PO TID Qty: 90 0RF Protocol: Hold for SBP/HR < HOLD for SBP < : 90 HOLD for HR < : 60 diazepam 2 mg Tablet 4 mg PO BEDTIME Qty: 30 0RF lithium carbonate 300 mg Tablet Extended Release See Rx Instructions .ROUTE .COMPLEX Qty: 90 0RF Rx Instructions: Take 1 tab-300mg in the morning and take 2 tabs-600mg at bedtime for mood. quetiapine 300 mg Tablet 300 mg PO BEDTIME Qty: 30 0RF quetiapine 50 mg Tablet 50 mg PO BID@0900,1500 Qty: 60 0RF calcium carbonate-vitamin D3 250 mg-3.125 mcg (125 unit) Tablet 1 tab PO BIDWM Qty: 30 0RF multivitamin [Daily-[place]] Tablet 1 tab PO DAILY Qty: 30 0RF Discontinued nicotine 14 mg/24 hr patch 24 hour 1 patch transdermal DAILY Qty: 14 0RF clonidine HCl 0.2 mg tablet 0.2 mg PO TID PRN (Reason: Anxiety) Discharge Orders: Discharge Order (Routine); Ordered 03/13/25 Ordered By: Elisabeth Ortez Diet: Regular diet Activity on Discharge: As tolerated Stand Alone Forms: Patient Portal Discharge page, Community Support Print Language: Serbian Care Plan Goals: Maintain mood and safe behaviors Take medications as prescribed Continue to pursue sobriety Practice coping skills Continue with outpatient providers and reach out to them as needed Health Concerns: Mood stability and behaviors Sobriety Plan of Treatment: Follow up with your PCP, psychiatric provider and other outpatient providers regarding above concerns Take medications as prescribed Assessment: Assessment: Risk assessment at time of discharge: Patient was interviewed prior to discharge and found to be fully oriented and without any SI or HI. Patient has improved insight and judgment and wants to continue treatment. Patient is not in imminent risk of harm to self or others and has a safety plan that includes presenting to the closest ER or calling 911 if feeling unsafe. Patient has been observed closely by nursing and unit staff throughout admission; patient has not engaged in any behaviors that suggest dangerousness to self or others and has demonstrated appropriate behaviors and impulse control Discharge Date/Time: 03/13/25 10:28
--- NOTE | 2025-03-13 11:09 | PC.NURSE ---
Patient easily engaged. Reports she has never been better . Reports mood is stable, denies depression or anxiety. Denies SI/HI plan or intent. Denies perceptual disturbances, no overt psychosis or expressed delusions. Discharge paperwork reviewed with patient, reports understanding. Follow up appointment reviewed with patient reports understanding. Medications reviewed with patient reports understanding. Resource booklet and crisis numbers provided to patient. All belongings taken with patient.
== END 2025-03-13 10:28 | disposition home or self-care (01) | DRG 751 ==
LOC: HO.ED 01-02 11:47 → HO.PADLT16 01-02 14:40
PROVIDERS: Nurse Practitioner Family; Nurse Practitioner Psychiatric/Mental Health; Physician Assistant; Psychiatry & Neurology Psychiatry; Admitting Provider Registered Nurse; Emergency Provider Emergency Medicine; PCP Internal Medicine; Visit Provider Psychiatry & Neurology Psychiatry
DX: F29 Unspecified psychosis not due to a substance or known physiological condition (principal); F17.210 Nicotine dependence, cigarettes, uncomplicated; F43.10 Post-traumatic stress disorder, unspecified; R00.0 Tachycardia, unspecified; Z71.6 Tobacco abuse counseling; F90.9 Attention-deficit hyperactivity disorder, unspecified type; Z78.1 Physical restraint status; Z79.899 Other long term (current) drug therapy
CPT/HCPCS: 36415; 70450; 73130; 80048; 80053; 80061; 80076; 80143; 80164; 80178; 80179; 80307; 81001; 81003; 81025; 82140; 82947; 83036; 84443; 85025; 93005; 99285; J1200; J1630; J2060; J3360; S9485

== ENCOUNTER → 2025-01-01 18:37 | Outpatient (BNV) | payer BC, SELFPAY | PROVIDERS: Emergency Provider Emergency Medicine; PCP Internal Medicine; Visit Provider Internal Medicine Cardiovascular Disease | DX: Z13.6 Encounter for screening for cardiovascular disorders (principal) | CPT/HCPCS: 93010 ==

== ENCOUNTER 2025-01-02 14:29 | Outpatient (BNV) | payer BC, SELFPAY | END 2025-01-16 11:30 | PROVIDERS: Admitting Provider Registered Nurse; Emergency Provider Emergency Medicine; PCP Internal Medicine; Visit Provider Radiology Diagnostic Radiology | DX: M79.641 Pain in right hand (principal) | CPT/HCPCS: 73130 ==

== ENCOUNTER 2025-01-02 14:29 | Outpatient (BNV) | payer BC, SELFPAY | END 2025-01-09 16:01 | PROVIDERS: Admitting Provider Registered Nurse; Emergency Provider Emergency Medicine; PCP Internal Medicine; Visit Provider Internal Medicine | DX: R07.9 Chest pain, unspecified (principal) | CPT/HCPCS: 93010 ==

== ENCOUNTER 2025-01-02 14:29 | Outpatient (BNV) | payer BC, SELFPAY | END 2025-01-25 06:33 | PROVIDERS: Admitting Provider Registered Nurse; Emergency Provider Emergency Medicine; PCP Internal Medicine; Visit Provider Radiology Diagnostic Radiology | DX: S09.90XA Unspecified injury of head, initial encounter (principal) | CPT/HCPCS: 70450 ==

== ENCOUNTER 2025-01-02 14:29 | Outpatient (BNV) | payer BC, SELFPAY | END 2025-01-29 07:30 | PROVIDERS: Admitting Provider Registered Nurse; Emergency Provider Emergency Medicine; PCP Internal Medicine; Visit Provider Radiology Diagnostic Radiology | DX: S60.011A Contusion of right thumb without damage to nail, initial encounter (principal); M79.641 Pain in right hand | CPT/HCPCS: 73130 ==

== ENCOUNTER 2025-04-02 10:57 | Outpatient (AMB) | payer BC, SELFPAY ==
--- NOTE | 2025-04-02 11:34 | MHC.PC.OV ---
Vital Signs 04/02/25 11:48 Height 5 ft 5 in Weight 158 lb BMI 26.3 BP 92/68 Blood Pressure Location Lt brachial Position Sitting Respiration 16 Pulse 71 Pulse Source Pulse Oximeter Temp 98.1 F Temp Source Oral Pulse Oximetry (%) 98 Oxygen Delivery Method Room Air Intake Visit Reasons: Annual PE Intake Note: Pt is here today for her PE: Last papsmear 09/16/20 Allergies amphetamine (From Adderall) Allergy (Severe, Verified 04/02/25 12:05) psychosis/ Manic dextroamphetamine (From Adderall) Allergy (Severe, Verified 04/02/25 12:05) psychosis/ Manic olanzapine (From Zyprexa) Adverse Reaction (Verified 04/02/25 12:05) Rash Medication List - Last Reconciled 04/02/25 by Mercy Santiago MD calcium carbonate-vitamin D3 250 mg-3.125 mcg (125 unit) 1 tab PO BIDWM diazepam 4 mg (2 x 2 mg) PO BEDTIME levonorgestrel (Mirena) intrauterine lithium carbonate ER Take 1 tab-300mg in the morning and take 2 tabs-600mg at bedtime for mood. multivitamin (Daily-Lavern tablet) 1 tab PO DAILY quetiapine 300 mg PO BEDTIME quetiapine 50 mg PO BID@0900,1500 Tobacco use date assessed: 04/02/25 Dental Screening Dental Screen Date: 04/02/25 Did you have a dental visit in the last 12 months?: Yes Did you have a dental problem in the last 6 months where you did not have access to dental care?: No Was dental information given to patient?: Patient has dentist HPI Annual PE HPI Details 54-year-old lady with history of ADHD, PTSD, here today for physical exam. Continues to smoke cigarettes, at least 1 pack a day with no desire to quit at present time. Up-to-date with her cervical cancer screening, last Pap smear was done in 2020 with negative findings, goes to [facility] 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 Acute psychosis Surgical History History of appendectomy Family History Mother Family history of cancer tonsil History of squamous cell carcinoma Mental health disorder Maternal Grandfather History of prostate cancer Family/Other History of breast cancer, Onset Age: 61 Social History (Updated 04/02/25 @ 12:08 by Mercy Santiago MD) Household Members: Family Household Members Other:: 3 Housing: Apartment Do you presently have visiting nurse or other home services: No Alcohol intake: never Comment: Patient on 1:1 Patient Tobacco Use Status: Current everyday Tobacco user Tobacco use type: Cigarette Cigarettes Per Day: 6 Years Smoked: 5 e-Cigarette/Vaping Use: Former Use Second Hand Smoke Exposure: Yes Substance Use Type: Marijuana service: No Current occupational status: employed Sexual orientation: Straight/Heterosexual Cognitive needs: No Hearing needs: No Vision needs: Yes Questionnaire PHQ-9 Over the last 2 weeks, how often have you been bothered by any of the following problems? 1. Little interest or pleasure in doing things: not at all 2. Feeling down, depressed, or hopeless: not at all 3. Trouble falling or staying asleep, or sleeping too much: not at all 4. Feeling tired or having little energy: not at all 5. Poor appetite or overeating: not at all 6. Feeling bad about yourself - or that you are a failure or have let yourself or your family down: not at all 7. Trouble concentrating on things, such as reading the newspaper or watching television: not at all 8. Moving or speaking so slowly that other people could have noticed. Or the opposite - being so fidgety or restless that you have been moving around a lot more than usual: not at all 9. Thoughts that you would be better off or of hurting yourself in some way: not at all Total score: 0 Depression Screening Interpretation: Positive (PTSD , ? Bipolar currently being seen at [facility] and counseling by psychiatrist and therapist QW) Depression Screening Done: Yes 18903 - PHQ-9 Billing: Yes Source: Developed by Drs. Obdulio Cortes, Jeannette Monson, Jigar Harden and colleagues, with an educational bianca from [employer]. Thrive Questionnaire Date Thrive assessed: 03/26/25 I am a: Patient What is your living situation today?: I have a steady place to live Within the past 12 months, did the food you bought not last and you didn't have the money to get more?: Never true Within the past 12 months, did you worry whether your food would run out before you got money to buy more?: Never true Do you have trouble paying for medicines?: No Do you have trouble getting transportation to medical appointments?: No Do you have trouble paying your heating and electricity bill?: No Do you have trouble taking care of your child, family member or friend?: No Do you have trouble with day-to-day activities such as bathing, preparing meals, shopping, managing finances, etc.?: No Are you currently unemployed and looking for a job?: No Are you interested in more education?: No Please select the resources that you would like help with: None Currently or been in a relationship where the following occur: No concerns reported THRIVE Score: 0 AUDIT C Alcohol Use Questionnaire (AUDIT-C) 1. How often do you have a drink containing alcohol?: Monthly or less 2. How many drinks containing alcohol do you have on a typical day when you are drinking?: 1 or 2 3. How often do you have six or more drinks on one occasion?: Never Total Score: 1 Score Reviewed/Action Taken: Yes BINA-7 AMB Questionnaire BINA-7 Date BINA - 7 assessed: 04/02/25 Feeling nervous, anxious, or on edge: 1 = Several days Not being able to stop or control worryin = Not at all Worrying too much about different things: 0 = Not at all Trouble relaxin = Nearly every day Being so restless that it is hard to sit still: 3 = Nearly every day Becoming easily annoyed or irritable: 1 = Several days Feeling afraid as if something awful might happen: 0 = Not at all Total BINA-7 score (0-4 normal; 5-9 mild; 10-14 moderate; 15-21 severe): 8 Source: Developed by Drs. Obdulio Cortes, Jeannette Monson, Jigar Harden and colleagues, with an educational bianca from [employer]. BINA-7 Assessment Billing BINA-7 Assessment Tool: BINA-7 Assessment 51163 Review of Systems Const Denies fatigue, Denies headache(s) and Denies weakness Eyes Details: Went to [facility] 2024 Reports blurry vision and Reports requires corrective lenses ENT Details: Dental cleaning yearly Denies dizziness, Denies headache(s) and Denies nasal congestion Card Denies chest pain, Denies lightheadedness, Denies palpitations and Denies dyspnea Resp Denies dyspnea GI Denies abdominal pain, Denies change in bowel habits and Denies heartburn Details: Goes to [facility] for her routine Pap and pelvic exam, had IUD inserted a year ago Reports no additional complaints Musc Reports no additional complaints Skin/Breast Denies breast skin changes, Denies breast pain, Denies breast mass and Denies rash Neuro Denies dizziness, Denies headache(s) and Denies weakness Psych Details: Currently being seen at [facility] and counseling by psychiatrist and therapist Endo Denies fatigue, Denies polydipsia, Denies polyuria and Denies palpitations Roberth/Lymph Reports no additional complaints Aller/Immun Denies seasonal rhinorrhea Physical exam (Primary Care) Vital Signs: Last Vital Signs Temp 98.1 F 04/02/25 11:48 Pulse 71 04/02/25 11:48 Resp 16 04/02/25 11:48 BP 92/68 04/02/25 11:48 Pulse Ox 98 04/02/25 11:48 Oxygen Delivery Method Room Air 04/02/25 11:48 BMI result Body Mass Index 26.3 Tobacco/Smoking Status: Tobacco use Status Tobacco use date assessed 04/02/25 04/02/25 11:37 Patient Tobacco Use Status Current everyday Tobacco 04/02/25 12:08 Tobacco use type Cigarette 04/02/25 12:08 e-Cigarette/Vaping Use Former Use 04/02/25 12:08 PHQ-9: PHQ-9 Score PHQ-9: Total score 0 04/02/25 12:12 Depression Screening Interpretation: Positive (PTSD , ? Bipolar currently being seen at [facility] and counseling by psychiatrist and therapist QW) Thrive Assessment: Date of Thrive Assessment Date Thrive assessed 03/26/25 04/02/25 11:37 Currently or been in a relationship where the following occur: No concerns reported Advance Care Planning discussion: Completed/Scanned Date of discussion: 04/02/25 Who was present: Patient Forms completed: Health Care Proxy Time spent: 16-45 minutes Actual minutes spent: 2 Const General: comfortable, no acute distress and alert Orientation/consciousness: patient oriented x3 HENMT Ears: external ears normal General nose exam: Normal external nose present and No nasal discharge present Mouth: Normal oral and palatal mucosa present, oropharynx normal and moist mucous membranes Teeth and gingiva: poor dentition Eyes General: appearance normal, both eyes and all related structures Conjunctivae: conjunctivae normal Sclerae: sclerae normal Pupils: Equal, round and reactive pupils present EOM: EOMs intact bilaterally Neck Neck: Yes full ROM, Yes no lymphadenopathy and Yes supple Chest Breast/axilla palpation: normal palpation of the breasts Resp Effort & Inspection: normal respiratory effort and able to speak in complete sentences Auscultation: clear to auscultation bilaterally Cardio Rate: regular rate Rhythm: regular rhythm Heart sounds: S1 normal heart sound present and S2 normal heart sound present GI Palpation (GI): Soft to palpation, nontender and no masses Auscultation: normal bowel sounds General: Yes no CVA tenderness Back/Spine/Pelvis Back: no CVA tenderness and No back tenderness Skin General skin exam: no rashes or lesions noted Neuro General: patient oriented x3, gait normal, tone normal and moves all extremities Cranial nerves: Yes Equal, round and reactive pupils present Cognition (Neuro): normal cognition Extrem General: Yes full ROM, Yes no joint enlargement, Yes no clubbing, cyanosis or edema and Yes no calf tenderness Psych Appearance: grossly normal and well kempt Mental Status: mental status grossly normal Speech and movement: Normal speech and movement present Affect: normal affect Results Reviewed Results Reviewed: Laboratory Tests 01/09/25 16:36 WBC 10.3 Hgb 13.5 Hct 38.0 Plt Count 295 Name: Venice Sheridan Age/Sex: 34/F : 1990 Unit#: [id number] Attend Dr: Kb Franklin MD Re01/02/25 Status: DIS IN Location: [place] [address] 319-2 Disch: 03/13/25 SPEC : [id number] ANIKA: 03/10/25 STATUS: COMP REQ : [id number] RECD: 03/10/[address]: Elisabeth Ortez NP COMP: 03/10/25 ENTERED: 03/10/25-[address]: Mercy Santiago MD, Joseph MD ORDERED: CMP, TSH Test Result Flag Reference Sodium 140 135-145 mmol/L Potassium 3.9 3.3-5.1 mmol/L CL 104 96-108 mmol/L CO2 27 22-29 mmol/L Gap 13 12-20 BUN 16 9-16 mg/dL Creat 0.69 0.5-1.4 mg/dL Estimated CrCl 114.2 Provided height and weight: 165.1 cm, 70.477 kg. eGFR (calculated from the MDRD study equation) and eCrCl (calculated from the Cockcroft-Gault equation) are based on different parameters and may not yield comparable results. If eCrCl result is absurd, please check patient's height/weight. eGFR > 60 Chronic Kidney Disease: Estimated GFR < 60 mL/min/1.73m2 Severe Kidney Disease: Estimated GFR < 15 mL/min/1.73m2 Glucose, Random 89 60-115 mg/dL CA 9.2 8.4-10.2 mg/dL Total Bili 0.4 0.0-1.0 mg/dL AST (GOT) 35 H 5-31 U/L ALT (GPT) 36 H 0-31 U/L Protein, Total 7.1 6.5-8.0 g/dL Alb 4.4 3.5-5.0 g/dL Alk Phos 59 39-117 U/L TSH 3rd Gen. 3.89 0.32-4.0 uIU/mL Note: A sustained TSH level above 2.5 uIU/mL may warrant further investigation. Name: Venice Sheridan Age/Sex: 34/F : 1990 Unit#: [id number] Attend Dr: Kb Franklin MD Re01/02/25 Status: DIS IN Location: .[id number] 319-2 Disch: 03/13/25 SPEC : [id number] ANIKA: 01/03/25 STATUS: COMP REQ : [id number] RECD: 01/03/25 [facility] DR: Camille Gilbert NP COMP: 01/03/25 ENTERED: 01/03/25-[address] [facility] [address]: Mercy Santiago MD ORDERED: CMP, Lipid Panel Test Result Flag Reference Sodium 139 135-145 mmol/L Potassium 3.6 3.3-5.1 mmol/L CL 105 96-108 mmol/L CO2 25 22-29 mmol/L Gap 13 12-20 BUN 13 9-16 mg/dL Creat 0.56 0.5-1.4 mg/dL Estimated CrCl 111.8 Provided height and weight: 165.1 cm, 49.579 kg. eGFR (calculated from the MDRD study equation) and eCrCl (calculated from the Cockcroft-Gault equation) are based on different parameters and may not yield comparable results. If eCrCl result is absurd, please check patient's height/weight. eGFR > 60 Chronic Kidney Disease: Estimated GFR < 60 mL/min/1.73m2 Severe Kidney Disease: Estimated GFR < 15 mL/min/1.73m2 Glucose, Random 91 60-115 mg/dL CA 9.4 8.4-10.2 mg/dL Total Bili 0.8 0.0-1.0 mg/dL AST (GOT) 20 5-31 U/L ALT (GPT) 15 0-31 U/L Protein, Total 7.1 6.5-8.0 g/dL Alb 4.9 3.5-5.0 g/dL Triglyceride 61 <150 mg/dL Desirable Triglyceride: less than 150 mg/dL Borderline High Triglyceride 150-199 mg/dL High Triglyceride: 200-499 mg/dL Very High Triglyceride: greater than or equal to 5OO mg/dL Cholesterol 134 <200 mg/dL Desirable Cholesterol: less than 200 mg/dL Borderline High Cholesterol: 200-239 mg/dL High Cholesterol: greater than 239 mg/dL LDL Calculated 76 <100 mg/dL Desirable LDL: less than 100 mg/dL Near Optimal/Above Optimal LDL: 110-129 mg/dL Borderline High LDL: 130-159 mg/dL High LDL: 160-189 mg/dL Very High LDL: greater than or equal to 190 mg/dL HDL 46 >40 mg/dL Desirable HDL: greater than 40 mg/dL Note: This HDL assay may give artificially low results in patients with liver disease. Alk Phos 60 39-117 U/L Coding Level of Care Code Est Pt Prev Care 18-39y(84706) Diagnoses Annual visit for general adult medical examination with abnormal findings Z00.01 PTSD (post-traumatic stress disorder) F43.10 Not ready to quit smoking Z72.0 Advance directive discussed with patient Z71.89 Additional Codes BINA-7 Assessment Billing - BINA-7 Assessment Tool: BINA-7 Assessment 48920 ([id number]) PHQ-9 - 24711 - PHQ-9 Billing: Yes ([id number]) Vital Signs *Quality* - Advance Care Planning discussion: Completed/Scanned ([id number]) Vital Signs *Quality* - Time spent: 16-45 minutes ([id number]) Assessment & Plan Assessment & Plan (1) Annual visit for general adult medical examination with abnormal findings: Code(s): Z00.01 - Encounter for general adult medical examination with abnormal findings Plan: Recent fasting labs reviewed with patient.. Recommended dental visit every 6 months and regular eye exams, at least every 2 years. Take adequate calcium in diet and vitamin-D 3 at 2000 IU per cap once a day, in addition to weight-bearing exercises to help maintain good muscle tone and weight control. Instructed to do self-breast exam, and recommended to get yearly mammogram, starting at age 40. Up-to-date with her cervical cancer screening. Up-to-date with her Tdap but does not want to get any COVID booster or flu shot (2) PTSD (post-traumatic stress disorder): Comment: previously seen by Dr Danette Fofana Code(s): F43.10 - Post-traumatic stress disorder, unspecified Category: Medical Plan: Currently being followed at [facility] and sees therapist and psychiatrist weekly (3) Not ready to quit smoking: Code(s): Z72.0 - Tobacco use Category: Social Hx Plan: Patient strongly advised to stop smoking, as smoking damages blood vessels, degenerative of joints and spine, damage to lungs and heart., predisposes to developing certain cancers like lung, breast, bladder, colon. Recommended to try decreasing cigarette use by 1-2 cigarettes a day. Advised to monitor what triggers are for smoking so that this can be discussed on the next office visit. We can discuss different options to quit smoking when ready. (4) Advance directive discussed with patient: Code(s): Z71.89 - Other specified counseling Plan: Initiated the conversation about Advanced Directives. Advanced Directives help patients prepare for current and future decisions about their medical treatment and place of care. Discussed with patient that it is a process where a patients current condition and prognosis are reviewed, their wishes for information regarding their illness are elicited, and likely medical dilemmas are presented and options discussed. Healthcare proxy form completed today. The form can be amended as needed, reviewed yearly and make changes as needed Orders: Orders Alanine Aminotransferase 1 Year F43.10 - Post-traumatic stress disorder, unspecified, Z00.01 - Encounter for general adult medical examination with abnormal findings, Z13.1 - Encounter for screening for diabetes mellitus, Z13.220 - Encounter for screening for lipoid disorders, Z71.89 - Other specified counseling, Z72.0 - Tobacco use Lipid Panel 1 Year F43.10 - Post-traumatic stress disorder, unspecified, Z00.01 - Encounter for general adult medical examination with abnormal findings, Z13.1 - Encounter for screening for diabetes mellitus, Z13.220 - Encounter for screening for lipoid disorders, Z71.89 - Other specified counseling, Z72.0 - Tobacco use Vitamin D 25-OH Total 1 Year F43.10 - Post-traumatic stress disorder, unspecified, Z00.01 - Encounter for general adult medical examination with abnormal findings, Z13.1 - Encounter for screening for diabetes mellitus, Z13.220 - Encounter for screening for lipoid disorders, Z71.89 - Other specified counseling, Z72.0 - Tobacco use Basic Metabolic Panel Fasting 1 Year F43.10 - Post-traumatic stress disorder, unspecified, Z00.01 - Encounter for general adult medical examination with abnormal findings, Z13.1 - Encounter for screening for diabetes mellitus, Z13.220 - Encounter for screening for lipoid disorders, Z71.89 - Other specified counseling, Z72.0 - Tobacco use Aspartate Amino Transferase 1 Year F43.10 - Post-traumatic stress disorder, unspecified, Z00.01 - Encounter for general adult medical examination with abnormal findings, Z13.1 - Encounter for screening for diabetes mellitus, Z13.220 - Encounter for screening for lipoid disorders, Z71.89 - Other specified counseling, Z72.0 - Tobacco use TSH reflex Free T4 1 Year F43.10 - Post-traumatic stress disorder, unspecified, Z00.01 - Encounter for general adult medical examination with abnormal findings, Z13.1 - Encounter for screening for diabetes mellitus, Z13.220 - Encounter for screening for lipoid disorders, Z71.89 - Other specified counseling, Z72.0 - Tobacco use
[2025-04-02 11:48] VITALS: BP 92/68; PULSE 71; RESP 16; TEMP 36.7; O2SAT 98; BMI 26.3
--- OUTSIDE RECORDS SUMMARY | 2025-04-02 13:57 | XMS_ITS | Encounter Summary ---
Author Organization [facility] Address [address] [place] [address] Phone Care Team Providers Care Track Grinder Operator Name Role Phone Selin Casanova MD Primary Care Provider [phone] Encounter Details Date Type Department Care Team (Late st Contact Info) Description 03/02/2017 Conversion Encounter [facility] [place] [address] [place] [address] Social History Tobacco Use Types Packs/Day Years Used Date Smoking Tobacco: Never Comments:Never smoker Comments Unknown Sex and Gender Information Value Date Recorded Sex Assigned at Not on file Legal Sex Female 4:45 PM EDT Gender Identity Not on file Sexual Orientation Not on file documented as of this encounter Plan of Treatment Not on file documented as of this encounter Visit Diagnoses Not on filedocumented in this encounter Care Teams Track Grinder Operator Relationship Specialty Start Date End Date Selin Casanova MD [address] [place] [address] PCP - General 02/24/17 10/16/22 documented as of this encounter
--- OUTSIDE RECORDS SUMMARY | 2025-04-02 13:57 | XMS_ITS | Encounter Summary ---
Author Organization [facility] Address [address] [place] [id number] Phone Care Team Providers Care Leasing Associate Name Role Phone Selin Casanova MD Primary Care Provider [phone] Encounter Details Date Type Department Care Team (Late st Contact Info) Description 11/03/2009 Documentation EM Family Medicine [address] [place] [address] Family Medicine, Physician [address] [place], [place] [id number] Social History Tobacco Use Types Packs/Day Years Used Date Smoking Tobacco: Never Assessed Comments Unknown Sex and Gender Information Value Date Recorded Sex Assigned at Not on file Legal Sex Female 4:45 PM EDT Gender Identity Not on file Sexual Orientation Not on file documented as of this encounter Plan of Treatment Not on file documented as of this encounter Visit Diagnoses Not on filedocumented in this encounter Care Teams Leasing Associate Relationship Specialty Start Date End Date Selin Casanova MD [address] [place], [place] [address] PCP - General 02/24/17 10/16/22 documented as of this encounter
--- OUTSIDE RECORDS SUMMARY | 2025-04-02 13:57 | XMS_ITS | Clinical Summary ---
Author Organization [facility] Address [address] [place] [id number] Phone Care Team Providers Care Short Order Cook Name Role Phone Unavailable Primary Care Provider Unavailabl e Immunizations Immunization Administration Dates Next Due DTP 01/13/1996, 5,09/30/1993,08/09,03/05/1992 HPV, Quadrivalent 03/11/2008,10/31/2007,08/07/19 08 Hep B, ped/adol 09/30/1993,01/21/1992,1991 Hib (PRP-T) 09/30/1993,08/09/1993,03/05/1992 IPV 03/05/1996, 6,09/30/1993,08/09 Influenza, injectable, trivalent 08/07/2007 MMR 01/10/1996,08/09/1993 Meningococcal Conj (Menactra) MCV4P 07/06/2006 Td (adult) (MBL), 2 Lf tetan us toxoid, PF, adsorbed 04/02/2004 Tdap 08/07/2007 Family History Relation Name Status Comments Brother Alive Brother: Alive and well Father Alive Father: Alive a nd well Maternal Grandfather Materna l grandfather: Sudden /[place] under age 55 Mother Alive Mother: Migrain es Other Family history of Hyperlipidemia, Family history of Migraines Sister Alive Sister: Alive a nd well Social History Tobacco Use Types Packs/Day Years Used Date Smoking Tobacco: Never Comments:Never smoker Comments Unknown Sex and Gender Information Value Date Recorded Sex Assigned at Not on file Legal Sex Female 4:45 PM EDT Gender Identity Not on file Sexual Orientation Not on file Last Filed Vital Signs Vital Sign Reading Time Taken Comments Blood Pressure 90/68 10/01/2012 12:00 AM EDT Pulse - - Temperature 35.9 C (96.7 F) 10/01/2012 12:00 AM EDT Respiratory Rate - - Oxygen Saturation - - Inhaled Oxygen Concentration - - Weight 60.8 kg (134 lb) 10/01/2012 12:00 AM EDT Height 165.1 cm (5' 5 ) 10/01/2012 12:00 AM EDT Body Mass Index 22.3 10/01/2012 12:00 AM EDT Plan of Treatment Health Maintenance Due Date Last Done Comments Varicella Vaccines (1 of 2 - 13+ 2-dose series) 12/20/2004 DTaP,Tdap,and Td Vaccines (7 - Td or Tdap) 08/07/2017 08/07/2007, 04/02/2004, 01/13/1996, Additional history exists Influenza Vaccines (#1) 2025 08/07/2007 COVID-19 Vaccine ( season) 2025 HIB Vaccines Completed 09/30/1993, 07/18, 03/05/1992 Hepatitis B Vaccines Completed 09/30/1993, 01/21/1992, 1991 MMR Vaccines Completed 01/10/1996, 08/09/1993 IPV Vaccines Completed 03/05/1996, 12/16, 09/30/1993, Additional history exists Meningococcal Vaccine Aged Out 07/06/2006 No joel preston eligible based on patient's age to complete this topic HPV Vaccines Completed 03/11/2008, 10/15, 08/07/2007 Hepatitis A Vaccines Aged Out No long er eligible based on patient's age to complete this topic Men B Vaccine Aged Out No longer elig ible based on patient's age to complete this topic Pneumococcal Vaccine Aged Out No long er eligible based on patient's age to complete this topic Procedures * Due to [place] [employer] law, this organization might not be sharing sensitive test results. Procedure Name Priority Date/Time Associated Diagnosis Comments CHLAMYDIA AND GONORRHEA, AMPLIFIED Routine 01/19/2012 1:37 PM EDT from Last 3 Months or Most Recently Relevant to Health Maintenance Results * Due to [place] [employer] law, this organization might not be sharing sensitive test results. * Chlamydia and Gonorrhoea, Amplified (01/19/2012 1:37 PM EDT) URINE CHLAMYDIA AMP PROBE NEGATIVE [facility] Comment: NO CHLAMYDIA TRACHOMATIS RNA DETECTED IN THIS PATIENT'S SAMPLE. (REFERENCE RANGE/NORMAL VALUE: NOT DETECTED) URINE GC AMP PROBE NEGATIVE [facility] Comment: NO NEISSERIA GONORRHOEAE RNA DETECTED IN THIS PATIENT'S SAMPLE. (REFERENCE RANGE/NORMAL VALUE: NOT DETECTED) NOTE: THIS TEST USES RADIATION TECHNICIAN MEDIATED AMPLIFICATION METHOD TO DETECT rRNA FROM C.TRACHOMATIS AND N.GONORRHOEAE. A NEGATIVE RESULT DOES NOT PRECLUDE INFECTION WITH C.TRACHOMATIS OR N.GONORRHOEAE BECAUSE RESULTS ARE DEPENDENT ON ADEQUATE SPECIMEN COLLECTION, ABSENCE OF INHIBITORS, AND SUFFICIENT rRNA TO BE DETECTED. THE APTIMA COMBO2 ASSAY IS NOT INTENDED FOR THE EVALUATION OF SUSPECTED SEXUAL ABUSE OR FOR OTHER MEDICO LEGAL INDICATIONS. IS TRUE FOR ALL NON CULTURE METHODS, A POSITIVE SPECIMEN OBTAINED FROM A PATIENT AFTER THERAPEUTIC TREATMENT CANNOT BE INTERPRETED INDICATING THE PRESENCE OF VIABLE C.TRACHOMATIS OR N.GONORRHOEAE. THERAPEUTIC FAILURE OR SUCCESS CANNOT BE DETERMINED WITH THE APTIMA COMBO2 ASSAY SINCE NUCLEIC ACID MAY PERSIST FOLLOWING APPROPRIATE ANTIMICROBIAL THERAPY. A NEGATIVE URINE RESULT FOR A PATIENT WHO IS CLINICALLY SUSPECTED OF HAVING A CHLAMYDIAL OR GONOCOCCAL INFECTION DOES NOT RULE OUT THE PRESENCE OF C.TRACHOMATIS OR N.GONORRHOEAE IN THE UROGENITAL TRACT. TESTING OF AN ENDOCERVICAL(FEMALE) OR URETHRAL(MALE) SPECIMEN IS RECOMMENDED IF THERE IS HIGH CLINICAL SUSPICION OF INFECTION. PRESERVCYT LIQUID PAP AND URINE SAMPLING ARE NOT DESIGNED TO REPLACE CERVICAL EXAMS AND ENDOCERVICAL SAMPLES FOR DIAGNOSIS OF FEMALE UROGENITAL INFECTIONS. PATIENTS MAY HAVE CERVICITIS, URETHRITIS, URINARY TRACT INFECTIONS, OR VAGINAL INFECTIONS DUE TO OTHER CAUSES OR CONCURRENT INFECTIONS WITH OTHER AGENTS. 01/19/2012 1:37 PM EDT Narrative [facility] - 01/19/2012 1:37 PM EDT URINE CHLAMYDIA GC AMP PROBE us Selin Casanova MD LAB MICROBIOLOGY - GENERAL ORD ERABLES Final Result [facility] [address] [place] [address], [place] from Last 3 Months or Most Recently Relevant to Health Maintenance
--- OUTSIDE RECORDS SUMMARY | 2025-04-02 13:57 | XMS_ITS | Encounter Summary ---
Author Organization [facility] Address [address] [place] [phone] Phone Care Team Providers Care Nailer Operator Name Role Phone Selin Casanova MD Primary Care Provider [phone] Encounter Details Date Type Department Care Team (Late st Contact Info) Description 11/13/2009 Documentation EM Family Medicine [address] [place] [address] Family Medicine, Physician [address] [place], [place] [id number] Social History Tobacco Use Types Packs/Day Years [...] on filedocumented in this encounter Care Teams Nailer Operator Relationship Specialty Start Date End Date Selin Casanova MD [address] [place], [place] [id number] [id number] PCP - General 02/24/17 10/16/22 documented as of this encounter
--- OUTSIDE RECORDS SUMMARY | 2025-04-02 13:57 | XMS_ITS | Encounter Summary ---
Author Organization [facility] Address [address] [place] [address] Phone Care Team Providers Care Powder Guard Name Role Phone Selin Casanova MD Primary Care Provider [phone] Encounter Details Date Type Department Care Team (Late st Contact Info) Description 03/28/2011 Documentation EM Family Medicine [address] [place] [address] Family Medicine, Physician [address] [place], [place] [phone] Social History Tobacco Use Types Packs/Day Years [...] on filedocumented in this encounter Care Teams Powder Guard Relationship Specialty Start Date End Date Selin Casanova MD [address] [place], [place] [id number] [id number] PCP - General 02/24/17 10/16/22 documented as of this encounter
--- OUTSIDE RECORDS SUMMARY | 2025-04-02 13:57 | XMS_ITS | Encounter Summary ---
Author Organization [facility] Address [address] [place] [phone] Phone Care Team Providers Care Patrol Police Lieutenant Name Role Phone Selin Casanova MD Primary Care Provider [phone] Encounter Details Date Type Department Care Team (Late st Contact Info) Description 11/03/2009 Documentation EM Family Medicine [address] [place] [address] Family Medicine, Physician [address] [place], [place] [phone] Social History Tobacco Use Types Packs/Day Years [...] on filedocumented in this encounter Care Teams Patrol Police Lieutenant Relationship Specialty Start Date End Date Selin Casanova MD [address] [place], [place] [address]D[place] [id number] PCP - General 02/24/17 10/16/22 documented as of this encounter
== END 2025-04-02 12:27 | disposition home or self-care (01) ==
LOC: HO.HMCC 10:58
PROVIDERS: PCP Internal Medicine; Visit Provider Internal Medicine
DX: Z00.01 Encounter for general adult medical examination with abnormal findings (principal); F43.10 Post-traumatic stress disorder, unspecified; Z72.0 Tobacco use; Z71.89 Other specified counseling; Z00.00 Encounter for general adult medical examination without abnormal findings

== ENCOUNTER → 2025-04-02 10:57 | Outpatient (BNVA) | payer BC, SELFPAY | PROVIDERS: PCP Internal Medicine; Visit Provider Internal Medicine | DX: Z00.01 Encounter for general adult medical examination with abnormal findings (principal); F90.9 Attention-deficit hyperactivity disorder, unspecified type; F43.10 Post-traumatic stress disorder, unspecified; F17.210 Nicotine dependence, cigarettes, uncomplicated; Z71.89 Other specified counseling | CPT/HCPCS: 96127 ==